=== PATIENT | female | born 1945 | race Caucasian/White ===

== ENCOUNTER 2019-12-01 14:25 | Observation (INO) ==
[2019-12-01] MEDS ORDERED: PIPERACILL/TAZOBAC CONSULT ACTIVE PRN (14:44)
[2019-12-01] MEDS ORDERED: PIPERACILLIN/TAZOBACTAM 4.5 GM/120 ML BAG IV ONE (14:44)
[2019-12-01] MEDS ORDERED: ALBUT/IPRATROP 3MG/0.5MG NEB 3 ML VIAL NEB STA (14:44)
--- NOTE | 2019-12-01 14:52 | Emergency Department Note ---
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 She states she has never had any similar episodes. She has a nonproductive cough and a runny nose. She denies any chest pain. The patient states for the past week, she has had bilateral leg pain. Home Medications Home Medications Medication Instructions Recorded Confirmed Type SCC EagleTouch Verio #120 ea NS 06/12/19 12/01/19 Rx albuterol sulfate 2 puff INHALATION Q4H PRN 12/01/19 12/01/19 History aspirin 81 mg PO QAM 12/01/19 12/01/19 History cholecalciferol (vitamin D3) 5,000 unit PO QAM 12/01/19 12/01/19 History [Vitamin D3] exenatide microspheres [Bydureon] 2 mg SUBCUT WK 12/01/19 12/01/19 History fluticasone propionate 1 spray INTRANASAL DAILY PRN 12/01/19 12/01/19 History furosemide 80 mg PO QAM 12/01/19 12/01/19 History insulin aspart U-100 [Novolog See Rx Instructions .ROUTE .COMPLEX 12/01/19 12/01/19 History U-100 Insulin aspart] insulin detemir U-100 [Levemir 30 unit SUBCUT BID 12/01/19 12/01/19 History U-100 Insulin] isosorbide mononitrate 30 mg PO QAM 12/01/19 12/01/19 History levothyroxine 100 mcg PO QAM 12/01/19 12/01/19 History lisinopril 20 mg PO QAM 12/01/19 12/01/19 History loratadine 10 mg PO QAM 12/01/19 12/01/19 History metoprolol tartrate 25 mg PO QPM 12/01/19 12/01/19 History metoprolol tartrate 50 mg PO QAM 12/01/19 12/01/19 History montelukast 10 mg PO HS 12/01/19 12/01/19 History oxycodone-acetaminophen 1 tab PO QID PRN 12/01/19 12/01/19 History pantoprazole 40 mg PO QAM 12/01/19 12/01/19 History polyethylene glycol 3350 17 g PO DAILY PRN 12/01/19 12/01/19 History potassium chloride 10 meq PO QAM 12/01/19 12/01/19 History pregabalin 200 mg PO TID 12/01/19 12/01/19 History rosuvastatin 20 mg PO HS 12/01/19 12/01/19 History Allergies Allergy/AdvReac Type Severity Reaction Status Date / Time carvedilol AdvReac Mild HEART Verified 12/01/19 19:28 RACING Past Med/Surg History Medical History CAD (coronary artery disease) (Chronic) "cath 2012 - mild, non obstructive disease" Chronic diastolic CHF (congestive heart failure) (Chronic) "echo 2007 - EF 55%, diastolic dysfunction" DM type 2 (diabetes mellitus, type 2) (Chronic) HTN (hypertension) (Chronic) Hypothyroidism (Chronic) MONROE (obstructive sleep apnea) (Chronic) PUD (peptic ulcer disease) (Chronic) Surgical History H/O excision of lamina of cervical vertebra for decompression of spinal cord (Chronic) History of hysterectomy (Chronic) History of tonsillectomy and adenoidectomy (Chronic) Family History (Updated 12/01/19 @ 20:16 by Madalyn Preston PA-C) Other Heart disease Stroke Social History Preferred Language: Slovenian Communication Ability: Effective 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 and A total of 10 systems reviewed and were otherwise negative Physical Exam Vital Signs Vital Signs - 24 hr 12/01/19 14:35 12/01/19 15:00 12/01/19 16:01 Temperature 37.1 C Temperature Source Oral Pulse Rate 79 77 Pulse Rate [Right Finger] 74 78 Pulse Rate from SpO2 Sensor 77 Pulse Rhythm Regular Pulse Rhythm [Right Finger] Regular Pulse Strength Normal Respiratory Rate 18 20 22 Respiratory Effort / Characteristics Non-Labored Spontaneous Spontaneous Non-Labored Respiratory Depth Normal Normal Respiratory Pattern Regular Blood Pressure 133/82 131/59 L Blood Pressure [Left Arm] 131/59 L Blood Pressure Mean 99 90 Blood Pressure Mean [Left Arm] 83 Blood Pressure Position Lying Pulse Oximetry 85 L 96 96 Oxygen Delivery Method Nasal Cannula Nasal Cannula Nasal Cannula Oxygen Flow Rate 3 3 Sepsis Action Taken by Nursing No Action Required 12/01/19 16:32 12/01/19 16:40 12/01/19 17:31 Temperature Temperature Source Pulse Rate 77 79 Pulse Rate [Right Finger] Pulse Rate from SpO2 Sensor Pulse Rhythm Pulse Rhythm [Right Finger] Pulse Strength Respiratory Rate 18 17 Respiratory Effort / Characteristics Respiratory Depth Respiratory Pattern Blood Pressure 147/105 H 158/60 H 128/63 Blood Pressure [Left Arm] Blood Pressure Mean 110 86 106 Blood Pressure Mean [Left Arm] Blood Pressure Position Pulse Oximetry Oxygen Delivery Method Oxygen Flow Rate Sepsis Action Taken by Nursing 12/01/19 17:46 12/01/19 18:01 Temperature Temperature Source Pulse Rate 79 79 Pulse Rate [Right Finger] Pulse Rate from SpO2 Sensor 79 Pulse Rhythm Pulse Rhythm [Right Finger] Pulse Strength Respiratory Rate 16 19 Respiratory Effort / Characteristics Respiratory Depth Respiratory Pattern Blood Pressure 128/63 147/74 H Blood Pressure [Left Arm] Blood Pressure Mean 84 106 Blood Pressure Mean [Left Arm] Blood Pressure Position Pulse Oximetry 96 96 Oxygen Delivery Method Nasal Cannula Oxygen Flow Rate 3 Sepsis Action Taken by Nursing GENERAL: Patient is awake alert in no acute distress patient is resting comfortably and showing no signs of anxiety EYES: The conjunctivae are clear. The pupils are round and reactive. EARS, NOSE, MOUTH AND THROAT: The nose is without any evidence of any deformity. Mucous membranes are moist. Tongue is midline. NECK: The neck is nontender and supple. RESPIRATORY: There were shallow respirations noted to auscultation. Diminished breath sounds are noted at both bases. There were scattered expiratory wheezing both upper lung mccauley. Mild tachypnea was noted with conversational dyspnea. CARDIOVASCULAR: Regular rate and rhythm noted there no murmurs rubs or gallops normal S1 normal S2. GASTROINTESTINAL: The abdomen is soft. Abdomen is nontender. MUSCULOSKELETAL/EXTREMITIES: There is no evidence of gross deformity full range of motion is noted in the hips and shoulders. SKIN: There is no obvious evidence of any rash. NEUROLOGIC: Patient is awake alert and oriented x3. Course Course 1430: Past medical records reviewed. The patient was evaluated in room A9. A complete history and physical exam was performed. 1800: Discussed the patient's case with Sintia Rubio. The patient will be evaluated by Dr. Cedeno, [facility] Hospitalist for further management. Administered Medications Albuterol (Duoneb) 3 ml NEB QIDR MILEY Stop: 12/31/19 19:06 Last Admin: 12/01/19 19:32 Dose: Not Given Documented by: [id number] Methylprednisolone 40 mg/ (Syringe) 0.64 mls @ 1.5 mls/min IV Q8H MILEY Stop: 12/31/19 19:59 Last Admin: 12/01/19 19:59 Dose: 1.5 mls/min Documented by: [id number] Discontinued Medications Albuterol (Duoneb) 3 ml NEB NOW STA Stop: 12/01/19 14:45 Last Admin: 12/01/19 14:59 Dose: 3 ml Documented by: [id number] Piperacillin Sod/Tazobactam Sod (Zosyn) 4.5 gm in 120 mls @ 240 mls/hr IV NOW ONE Stop: 12/01/19 15:13 Last Infusion: 12/01/19 16:34 Dose: 0 mls/hr Documented by: [id number] Admin: 12/01/19 15:54 Dose: 240 mls/hr Documented by: [id number] Sodium Chloride (Nss 1000ml) 1,000 mls @ 999 mls/hr IV .Q1H1M ONE Stop: 12/01/19 17:32 Last Infusion: 12/01/19 18:45 Dose: 0 mls/hr Documented by: [id number] Admin: 12/01/19 17:43 Dose: 999 mls/hr Documented by: [id number] Ioversol (Optiray 320 125ml) 120 ml IV ONCE PRN PRN Reason: Interaction Checking Stop: 12/05/19 16:57 Last Admin: 12/01/19 17:02 Dose: 120 ml Documented by: [id number] Oxycodone/Acetaminophen (Percocet 5mg/325mg) 1 tab PO NOW STA Stop: 12/01/19 17:11 Last Admin: 12/01/19 17:41 Dose: 1 tab Documented by: [id number] Medical Decision Making Differential Diagnosis Differential diagnosis: Etiologies such as infections, reactive airway disease, pneumonia, pneumothorax, COPD, CHF, cardiac ischemia, pulmonary embolism, musculoskeletal, gastrointestinal, as well as others were entertained. Medical Records Attestation: I reviewed the patient's medical records. Home Medications Current Medication List: was personally reviewed by me Laboratory Data Attestation: I reviewed the patient's lab results. Result diagrams: 12/01/19 14:50 12/01/19 14:50 Lab Results 12/01/19 12/01/19 12/01/19 Range/Units 14:50 14:50 14:50 WBC 10.16 (4.8-10.8) K/uL RBC 4.23 (4.2-5.4) M/uL Hgb 12.1 (12.0-16.0) g/dL Hct 37.2 (37-47) % MCV 87.9 (80-100) fL MCH 28.6 (25-34) pg MCHC 32.5 (32-36) g/dL RDW Std Deviation 43.6 (36.4-46.3) fL RDW Coeff of Burak 13.6 (11.5-14.5) % Plt Count 273 (130-400) K/uL MPV 9.8 (7.4-10.4) fL Immature Gran % (Auto) 0.3 % Neut % (Auto) 69.7 % Lymph % (Auto) 15.6 % Howell % (Auto) 11.3 % Eos % (Auto) 2.9 % Baso % (Auto) 0.2 % Immature Gran # (Auto) 0.03 H (0.00-0.02) K/uL Neut # (Auto) 7.09 H (1.4-6.5) K/uL Lymph # (Auto) 1.58 (1.2-3.4) K/uL Howell # (Auto) 1.15 H (0.11-0.59) K/uL Eos # (Auto) 0.29 (0-0.5) K/uL Baso # (Auto) 0.02 (0-0.2) K/uL PT 10.4 (9.0-12.0) Seconds INR 1.0 (0.9-1.1) APTT 25.4 (21.0-31.0) Seconds PTT Ratio 0.9 Sodium 140 (136-145) mmol/L Potassium 4.3 (3.5-5.1) mmol/L Chloride 104 (98-107) mmol/L Carbon Dioxide 33 H (21-32) mmol/L Anion Gap 3.0 (3-11) BUN 43 H (7-18) mg/dl Creatinine 1.33 H (0.6-1.2) mg/dl Est Cr Clr Drug Dosing 34.5 ml/min Est GFR ( Amer) 44.9 Est GFR (Non-Af Amer) 38.7 BUN/Creatinine Ratio 32.5 H (10-20) Glucose 97 (70-99) mg/dl Lactate (0.4-2.0) mmol/L Calcium 9.1 (8.5-10.1) mg/dl Magnesium 2.3 (1.8-2.4) mg/dl Total Bilirubin 0.4 (0.2-1) mg/dl AST 13 L (15-37) U/L ALT 19 (12-78) U/L Alkaline Phosphatase 66 (45-117) U/L Troponin I < 0.015 (0-0.045) ng/ml NT-Pro-B Natriuret Pep 167 (0-1800) pg/ml Total Protein 7.4 (6.4-8.2) gm/dl Albumin 3.5 (3.4-5.0) gm/dl Globulin 3.9 (2.5-4.0) gm/dl Albumin/Globulin Ratio 0.9 (0.9-2) Procalcitonin (0-0.5) ng/ml Urine Color Urine Appearance (Clear) Urine pH (4.5-7.5) Ur Specific [place] (1.000-1.030) Urine Protein (Negative) Urine Glucose (UA) (Negative) Urine Ketones (Negative) Urine Blood (Negative) Urine Nitrite (Negative) Urine Bilirubin (Negative) Urine Urobilinogen (Negative) Ur Leukocyte Esterase (Negative) Influenza Type A (PCR) (Neg) Influenza Type B (PCR) (Neg) 12/01/19 12/01/19 12/01/19 Range/Units 14:50 14:50 14:50 WBC (4.8-10.8) K/uL RBC (4.2-5.4) M/uL Hgb (12.0-16.0) g/dL Hct (37-47) % MCV (80-100) fL MCH (25-34) pg MCHC (32-36) g/dL RDW Std Deviation (36.4-46.3) fL RDW Coeff of Burak (11.5-14.5) % Plt Count (130-400) K/uL MPV (7.4-10.4) fL Immature Gran % (Auto) % Neut % (Auto) % Lymph % (Auto) % Howell % (Auto) % Eos % (Auto) % Baso % (Auto) % Immature Gran # (Auto) (0.00-0.02) K/uL Neut # (Auto) (1.4-6.5) K/uL Lymph # (Auto) (1.2-3.4) K/uL Howell # (Auto) (0.11-0.59) K/uL Eos # (Auto) (0-0.5) K/uL Baso # (Auto) (0-0.2) K/uL PT (9.0-12.0) Seconds INR (0.9-1.1) APTT (21.0-31.0) Seconds PTT Ratio Sodium (136-145) mmol/L Potassium (3.5-5.1) mmol/L Chloride (98-107) mmol/L Carbon Dioxide (21-32) mmol/L Anion Gap (3-11) BUN (7-18) mg/dl Creatinine (0.6-1.2) mg/dl Est Cr Clr Drug Dosing ml/min Est GFR ( Amer) Est GFR (Non-Af Amer) BUN/Creatinine Ratio (10-20) Glucose (70-99) mg/dl Lactate 1.1 (0.4-2.0) mmol/L Calcium (8.5-10.1) mg/dl Magnesium (1.8-2.4) mg/dl Total Bilirubin (0.2-1) mg/dl AST (15-37) U/L ALT (12-78) U/L Alkaline Phosphatase (45-117) U/L Troponin I Cancelled (0-0.045) ng/ml NT-Pro-B Natriuret Pep (0-1800) pg/ml Total Protein (6.4-8.2) gm/dl Albumin (3.4-5.0) gm/dl Globulin (2.5-4.0) gm/dl Albumin/Globulin Ratio (0.9-2) Procalcitonin 0.08 (0-0.5) ng/ml Urine Color Urine Appearance (Clear) Urine pH (4.5-7.5) Ur Specific [place] (1.000-1.030) Urine Protein (Negative) Urine Glucose (UA) (Negative) Urine Ketones (Negative) Urine Blood (Negative) Urine Nitrite (Negative) Urine Bilirubin (Negative) Urine Urobilinogen (Negative) Ur Leukocyte Esterase (Negative) Influenza Type A (PCR) (Neg) Influenza Type B (PCR) (Neg) 12/01/19 12/01/19 12/01/19 Range/Units 14:50 15:00 16:40 WBC (4.8-10.8) K/uL RBC (4.2-5.4) M/uL Hgb (12.0-16.0) g/dL Hct (37-47) % MCV (80-100) fL MCH (25-34) pg MCHC (32-36) g/dL RDW Std Deviation (36.4-46.3) fL RDW Coeff of Burak (11.5-14.5) % Plt Count (130-400) K/uL MPV (7.4-10.4) fL Immature Gran % (Auto) % Neut % (Auto) % Lymph % (Auto) % Howell % (Auto) % Eos % (Auto) % Baso % (Auto) % Immature Gran # (Auto) (0.00-0.02) K/uL Neut # (Auto) (1.4-6.5) K/uL Lymph # (Auto) (1.2-3.4) K/uL Howell # (Auto) (0.11-0.59) K/uL Eos # (Auto) (0-0.5) K/uL Baso # (Auto) (0-0.2) K/uL PT (9.0-12.0) Seconds INR (0.9-1.1) APTT (21.0-31.0) Seconds PTT Ratio Sodium (136-145) mmol/L Potassium (3.5-5.1) mmol/L Chloride (98-107) mmol/L Carbon Dioxide (21-32) mmol/L Anion Gap (3-11) BUN (7-18) mg/dl Creatinine (0.6-1.2) mg/dl Est Cr Clr Drug Dosing ml/min Est GFR ( Amer) Est GFR (Non-Af Amer) BUN/Creatinine Ratio (10-20) Glucose (70-99) mg/dl Lactate (0.4-2.0) mmol/L Calcium (8.5-10.1) mg/dl Magnesium (1.8-2.4) mg/dl Total Bilirubin (0.2-1) mg/dl AST (15-37) U/L ALT (12-78) U/L Alkaline Phosphatase (45-117) U/L Troponin I (0-0.045) ng/ml NT-Pro-B Natriuret Pep Cancelled (0-1800) pg/ml Total Protein (6.4-8.2) gm/dl Albumin (3.4-5.0) gm/dl Globulin (2.5-4.0) gm/dl Albumin/Globulin Ratio (0.9-2) Procalcitonin (0-0.5) ng/ml Urine Color Dark Yellow Urine Appearance Clear (Clear) Urine pH 6.0 (4.5-7.5) Ur Specific [place] 1.012 (1.000-1.030) Urine Protein Negative (Negative) Urine Glucose (UA) Negative (Negative) Urine Ketones Negative (Negative) Urine Blood Negative (Negative) Urine Nitrite Negative (Negative) Urine Bilirubin Negative (Negative) Urine Urobilinogen Negative (Negative) Ur Leukocyte Esterase Negative (Negative) Influenza Type A (PCR) Neg for Influ A (Neg) Influenza Type B (PCR) Neg for Influ B (Neg) Imaging Data Radiologist's Impression: Radiology results as stated below per my review and the radiologist's interpretation: CT ANGIOGRAM OF THE CHEST CLINICAL HISTORY: Dyspnea. COMPARISON STUDY: Chest x-ray dated 12/01/2019. TECHNIQUE: Following the IV administration of 120 cc of Optiray 320, CT angiog ele of the chest was performed from the upper abdomen to the thoracic inlet utilizing the pulmonary embolus protocol. Images are reviewed in the axial, sagittal, and coronal planes. 3-D MIPS images are created and assessed. IV contrast was administered without complication. A dose lowering technique was utilized adhering to the principles of ALARA. The examination is degraded by motion artifact, as well as by streak artifact from the arms which could not be elevated above the chest. CT DOSE: 955.79 mGy.cm FINDINGS: Thyroid: Imaged portions of the thyroid gland are normal in size and attenu ation. Thoracic aorta: There is atherosclerotic calcification of the thoracic aorta, which is normal in caliber and demonstrates standard 3-vessel arch anatomy. No dissection is seen. Pulmonary vasculature: The pulmonary trunk is normal in caliber. There are no filling defects identified in main, lobar, or proximal segmental pulmonary branches to suggest pulmonary embolus. Evaluation of the peripheral branches is degraded by motion artifact, especially in the lower lobes. Heart: The heart is enlarged and without pericardial effusion. The coronary arteries and mitral annulus are densely calcified. Lungs and pleural spaces: Evaluation of the lung parenchyma is degraded by motion artifact. No airspace consolidation or pleural effusion. Scarring/atelectasis is noted at the lung bases. The trachea and central airways are clear. Mediastinum: There is no mediastinal lymphadenopathy. Hailey: Clear. Axillae: There is no axillary lymphadenopathy. Upper abdomen: There is a small to moderate hiatal hernia. Nodular thickening is noted in the adrenal glands. Partially visualized upper abdominal viscera is otherwise grossly unremarkable. Skeletal structures: The skeletal structures are osteopenic. No lytic or blastic bony lesions are seen. Advanced arthritic change is seen in the shoulders. 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 Fusion hardware is noted in the lower cervical spine. There are healed right- sided rib fractures. IMPRESSION: 1. Streak and motion compromised examination. 2. There is no evidence of central pulmonary embolus in the main, lobar, or proximal segmental pulmonary arteries. 3. Cardiomegaly. 4. There is no airspace consolidation or pleural effusion. 5. Hiatal hernia. 6. Additional findings as above. ACT 112: Negative or not required by law. Electronically signed by: Mello Glasgow M.D. 12/01/2019 5:19 PM SINGLE VIEW CHEST CLINICAL HISTORY: Sepsis. FINDINGS: 2 AP, portable, upright chest radiographs are compared to study dated 02/04/2016. The examination is degraded by portable technique, apical lordotic positioning, and patient rotation. The heart is enlarged noting atherosclerotic calcification of the thoracic aorta. There is prominence of the pulmonary vascular. Scarring/atelectasis is noted at the lung bases. No airspace consolidation or large pleural effusion is identified. No pneumothorax is seen. The skeletal structures are osteopenic. There are numerous healed right-sided rib fractures. Fusion hardware is noted in the lower cervical spine. Advanced degenerative change is seen in the shoulders and thoracic spine. IMPRESSION: 1. Cardiomegaly with prominence of the pulmonary vasculature. Correlate clinically for evidence of mild congestive failure. 2. No airspace consolidation or large pleural effusion is seen. ACT 112: Negative or not required by law. Electronically signed by: Mello Glasgow M.D. 12/01/2019 4:49 PM ECG Data Attestation: I personally reviewed and interpreted this ECG as follows: Indication: + SOB/dyspnea Rate (beats per minute): 79 Rhythm: + normal sinus ECG ST segments: no ST depression and no ST elevation ECG Findings: + Poor R wave progression; no PACs and no PVCs Comparison ECG Date: from (02/04/16) Change: no significant change Blood Pressure Blood Pressure Findings: Elevated blood pressure Blood Pressure Disposition: further management by hospitalist [facility] Narrative The patient is a 74-year-old female who presented to the emergency department by ambulance for an evaluation of shortness of breath. The patient states that she was seen at her primary care physician's office and was sent to the emergency department for further evaluation. She reportedly had a chest x-ray which showed bilateral pneumonia. The patient's chest x-ray in the emergency department was not impressive so a CT of the chest was obtained. Given the patient's degree of hypoxia. She was placed on supplemental oxygen treated with IV fluids DuoNeb therapy and IV antibiotics. On subsequent reevaluation she was resting comfortably. I discussed the patient's laboratory and radiographic studies with her. Given the degree of hypoxia I was concerned she may require inpatient management. I discussed her case with the on-call [facility] hospitalist. They have agreed to evaluate the patient in the emergency dep artment for further management and disposition. Impression & Plan Bronchitis, Hypoxia, ROQUE (dyspnea on exertion) Discharge Plan Visit Data *Final* Discharge Date/Time: 12/01/19 18:38 Chief Complaint: Respiratory Problems ED Provider: Jori Varela Discharge Problem: Bronchitis, Hypoxia, ROQUE (dyspnea on exertion) Patient Disposition: Admitted As Inpatient Discharge Instructions Interventions: ED Discharge Assessment Last Done: 12/01/19 18:38 The scribe's documentation has been prepared under my direction and personally reviewed by me in its entirety. I confirm that the note above accurately refl ects all work, treatment, procedures, and medical decision making performed by me.
[2019-12-01 15:08] LABS: Basophils # (auto) 0.02 K/uL (0-0.2); Basophils % (auto) 0.2 %; Eosinophils # (auto) 0.29 K/uL (0-0.5); Eosinophils % (auto) 2.9 %; Hematocrit (blood only) 37.2 % (37-47); Hemoglobin 12.1 g/dL (12.0-16.0); Immature Granulocytes # (auto) 0.03 K/uL (0.00-0.02); Immature Granulocytes % (auto) 0.3 %; Lymphocytes # (auto) 1.58 K/uL (1.2-3.4); Lymphocytes % (auto) 15.6 %; Mean Corpuscular Hemoglobin 28.6 pg (25-34); Mean Corpuscular Hgb Conc 32.5 g/dL (32-36); Mean Corpuscular Volume 87.9 fL (80-100); Mean Platelet Volume 9.8 fL (7.4-10.4); Monocytes # (auto) 1.15 K/uL (0.11-0.59); Monocytes % (auto) 11.3 %; Neutrophils # (auto) 7.09 K/uL (1.4-6.5); Neutrophils % (auto) 69.7 %; Platelet Count 273 K/uL (130-400); RDW Coefficient of Variation 13.6 % (11.5-14.5); RDW Standard Deviation 43.6 fL (36.4-46.3); Red Blood Count 4.23 M/uL (4.2-5.4); White Blood Count 10.16 K/uL (4.8-10.8)
[2019-12-01 15:25] LABS: Alanine Aminotransferase 19 U/L (12-78); Albumin Level 3.5 gm/dl (3.4-5.0); Aspartate Aminotransferase 13 U/L (15-37); BUN Creatinine Ratio 32.5 (10-20); Blood Urea Nitrogen 43 mg/dl (7-18); Calcium 9.1 mg/dl (8.5-10.1); Carbon Dioxide 33 mmol/L (21-32); Chloride 104 mmol/L (98-107); Creatinine Clr Calc Pharmacy 34.5 ml/min; Est GFR (African American) 44.9; Est GFR (Non-African American) 38.7; Glucose 97 mg/dl (70-99); Magnesium 2.3 mg/dl (1.8-2.4); Potassium 4.3 mmol/L (3.5-5.1); Sodium 140 mmol/L (136-145)
[2019-12-01 15:26] LABS: Partial Thromboplastin Ratio 0.9; Partial Thromboplastin Time 25.4 Seconds (21.0-31.0); Prothrombin Time 10.4 Seconds (9.0-12.0)
[2019-12-01 15:28] LABS: Albumin Globulin Ratio 0.9 (0.9-2); Alkaline Phosphatase 66 U/L (45-117); Bilirubin,Total 0.4 mg/dl (0.2-1); Globulin 3.9 gm/dl (2.5-4.0); Total Protein 7.4 gm/dl (6.4-8.2)
[2019-12-01 15:41] LABS: Troponin I < 0.015 ng/ml (0-0.045)
--- NOTE | 2019-12-01 15:52 | Electrocardiogram Report ---
Test Reason : Blood Pressure : / mmHG Vent. Rate : 079 BPM Atrial Rate : 079 BPM P-R Int : 198 ms QRS Dur : 110 ms QT Int : 382 ms P-R-T Axes : 052 -56 053 degrees QTc Int : 438 ms Normal sinus rhythm Left anterior fascicular block Septal infarct (cited on or before 04-FEB-2016) Abnormal ECG When compared with ECG of 04-FEB-2016 09:11, Nonspecific T wave abnormality no longer evident in Inferior leads Confirmed by Jori Arzola ([id number]) on 12/01/2019 3:51:43 PM Referred By: Confirmed By:Jori Arzola
[2019-12-01 16:05] LABS: Influenza A virus by PCR Neg for Influ A (Neg); Influenza B virus by PCR Neg for Influ B (Neg)
[2019-12-01] MEDS ORDERED: SODIUM CHLORIDE 0.9% 1000ML 1,000 ML IV ONE (16:32)
--- NOTE | 2019-12-01 16:50 | XRay Report ---
SINGLE VIEW CHEST CLINICAL HISTORY: Sepsis. FINDINGS: 2 AP, portable, upright chest radiographs are compared to study dated 02/04/2016. The examina tion is degraded by portable technique, apical lordotic positioning, and patient rotation. The heart is enlarged noting atherosclerotic calcification of the thoracic aorta. There is prominence of the pu lmonary vascular. Scarring/atelectasis is noted at the lung bases. No airspace consolidation or large pleural effusion is identified. No pneumothorax is seen. The skeletal structures are osteopenic. The re are numerous healed right-sided rib fractures. Fusion hardware is noted in the lower cervical spin e. Advanced degenerative change is seen in the shoulders and thoracic spine. IMPRESSION: 1. Cardiomegaly with prominence of the pulmonary vasculature. Correlate clinically for evidence of mi ld congestive failure. 2. No airspace consolidation or large pleural effusion is seen. ACT 112: Negative or not required by law. Electronically signed by: Mello Glasgow M.D. 12/01/2019 4:49 PM
[2019-12-01] MEDS ORDERED: OPTIRAY 320 125ml IV PRN (16:58)
[2019-12-01] MEDS ORDERED: OXYCODONE/ACETAMINOPHEN 5mg/325mg TAB PO STA (17:10)
--- NOTE | 2019-12-01 17:21 | CT Scan Report ---
CT ANGIOGRAM OF THE CHEST CLINICAL HISTORY: Dyspnea. COMPARISON STUDY: Chest x-ray dated 12/01/2019. TECHNIQUE: Following the IV administration of 120 cc of Optiray 320, CT angiogram of the chest was pe rformed from the upper abdomen to the thoracic inlet utilizing the pulmonary embolus protocol. Images are reviewed in the axial, sagittal, and coronal planes. 3-D MIPS images are created and assessed. I V contrast was administered without complication. A dose lowering technique was utilized adhering to the principles of ALARA. The examination is degraded by motion artifact, as well as by streak artifa ct from the arms which could not be elevated above the chest. CT DOSE: 955.79 mGy.cm FINDINGS: Thyroid: Imaged portions of the thyroid gland are normal in size and attenuation. Thoracic aorta: There is atherosclerotic calcification of the thoracic aorta, which is normal in jacki amara and demonstrates standard 3-vessel arch anatomy. No dissection is seen. Pulmonary vasculature: The pulmonary trunk is normal in caliber. There are no filling defects identif ied in main, lobar, or proximal segmental pulmonary branches to suggest pulmonary embolus. Evaluation of the peripheral branches is degraded by motion artifact, especially in the lower lobes. Heart: The heart is enlarged and without pericardial effusion. The coronary arteries and mitral annul us are densely calcified. Lungs and pleural spaces: Evaluation of the lung parenchyma is degraded by motion artifact. No airspa ce consolidation or pleural effusion. Scarring/atelectasis is noted at the lung bases. The trachea an d central airways are clear. Mediastinum: There is no mediastinal lymphadenopathy. Hailey: Clear. Axillae: There is no axillary lymphadenopathy. Upper abdomen: There is a small to moderate hiatal hernia. Nodular thickening is noted in the adrenal glands. Partially visualized upper abdominal viscera is otherwise grossly unremarkable. Skeletal structures: The skeletal structures are osteopenic. No lytic or blastic bony lesions are see n. Advanced arthritic change is seen in the shoulders. Degenerative change, hyperkyphosis, and DISH a re noted in the thoracic spine. Fusion hardware is noted in the lower cervical spine. There are heale d right-sided rib fractures. IMPRESSION: 1. Streak and motion compromised examination. 2. There is no evidence of central pulmonary embolus in the main, lobar, or proximal segmental pulmon angie arteries. 3. Cardiomegaly. 4. There is no airspace consolidation or pleural effusion. 5. Hiatal hernia. 6. Additional findings as above. ACT 112: Negative or not required by law. Electronically signed by: Mello Glasgow M.D. 12/01/2019 5:19 PM
[2019-12-01 18:03] LABS: Appearance Urine Clear (Clear); Bilirubin Urine Negative (Negative); Blood Urine Negative (Negative); Color Urine Dark Yellow; Glucose Urine UA Negative (Negative); Ketones Urine Negative (Negative); Leukocyte Esterase Urine Negative (Negative); Nitrite Urine Negative (Negative); Protein Urine Negative (Negative); Specific Gravity Urine 1.012 (1.000-1.030); Urobilinogen Urine Negative (Negative)
[2019-12-01] MEDS ORDERED: INFLUENZA ADMINISTRATION CHARGE ONE (18:32)
[2019-12-01] MEDS ORDERED: INFLUENZA VACCINE HIGH DOSE 65+ 0.5 ML SYR IM ONE (18:32)
[2019-12-01 18:37] LABS: NT Pro B Type Natriuretic Pept 167 pg/ml (0-1800)
--- NOTE | 2019-12-01 18:46 | History & Physical Report ---
Date of Service December 01, 2019 Assessment & Plan (1) Acute respiratory failure with hypoxia: (2) Aspiration pneumonitis: This is a 74-year-old female with PMH of type 2 diabetes on insulin, chronic diastolic heart failure, hypothyroidism, CAD, depression, MONROE not on CPAP and other medical problems listed below who presents with progressive dyspnea on exertion x1 week. -Wheezing, nasal congestion, nonproductive cough and dyspnea on exertion x 1 week -Initially hypoxic at 85% on room air. Now saturating 96% on 3 L nasal cannula -Afebrile, no leukocytosis, flu PCR negative, lactate and procalcitonin within normal limits -Initial concern about pneumonia on CXR done in clinic, but chest CTA without evidence of airspace consolidation, pleural effusion or evidence of PE -Concern for aspiration due to history of dysphasia.Underwent EGD with dilation in June 2019 with minimal improvement, per GI note -Was seen by speech in August 2019 for swallow study that did not show any signs of aspiration but did show some dysmotility. Slippery diet with thin liquids recommended -Continue empiric Zosyn and added doxycycline, duoNebs QIDR, IV Solu-Medrol. Blood cultures pending -Aspiration precautions, speech consult (3) Chronic diastolic CHF (congestive heart failure): Appears compensated on exam and chest CTA -Continue home dose lasix, lopressor (4) HTN (hypertension): Continue lisinopril, lopressor (5) CAD (coronary artery disease): No chest pain or ischemic changes -Continue aspirin, statin (6) DM type 2 (diabetes mellitus, type 2): A1c of 8.5 in Aug 2019. Repeat ordered -Hold home agents -Basal/bolus insulin per protocol while in-patient -BSG AC HS (7) Chronic pain: History of degenerative disc disease in neck and back -Continue home dose oxycodone (8) MONROE (obstructive sleep apnea): Not on CPAP DVT Ppx: SQ heparin Code status: FULL PCP: Kya Dispo: Admitted to [facility]. Plan to return home once medically stable. Patient seen in collaboration with Dr. Cedeno. Please see addendum. History of Present Illness Chief Complaint: Dyspnea on exertion, cough Primary Care Provider: Jazzmine Boland, DO This is a 74-year-old female with PMH of type 2 diabetes on insulin, chronic diastolic heart failure, hypothyroidism, CAD, depression, MONROE not on CPAP and other medical problems listed below who presents with progressive dyspnea on exertion x1 week. Patient states that over the past week she has developed wheezing, nasal congestion, nonproductive cough and shortness of breath that is been progressively worse over the past 2 days. Is unable to ambulate even around her house without becoming short of breath. Has been around her grandson who is sick. Denies fever, chills, lightheadedness, visual changes, chest pain, palpitations, hemoptysis, nausea, vomiting, abdominal pain, dysuria, diarrhea or constipation. Has history of dysphasia issues and admits to sometimes choking on food. Underwent EGD with dilation in June 2019 with minimal improvement, per GI note. Was seen by speech in August 2019 for swallow study that did not show any signs of aspiration but did show some dysmotility. Slippery diet with thin liquids recommended. Allergies Allergy/AdvReac Type Severity Reaction Status Date / Time carvedilol AdvReac Mild HEART Verified 12/01/19 19:28 RACING Home Medications Home Medications Medication Instructions Recorded Confirmed Type FiiilingTouch Verio #120 ea NS 06/12/19 12/01/19 Rx albuterol sulfate 2 puff INHALATION Q4H PRN 12/01/19 12/01/19 History aspirin 81 mg PO QAM 12/01/19 12/01/19 History cholecalciferol (vitamin D3) 5,000 unit PO QAM 12/01/19 12/01/19 History [Vitamin D3] exenatide microspheres [Bydureon] 2 mg SUBCUT WK 12/01/19 12/01/19 History fluticasone propionate 1 spray INTRANASAL DAILY PRN 12/01/19 12/01/19 History furosemide 80 mg PO QAM 12/01/19 12/01/19 History insulin aspart U-100 [Novolog See Rx Instructions .ROUTE .COMPLEX 12/01/19 12/01/19 History U-100 Insulin aspart] insulin detemir U-100 [Levemir 30 unit SUBCUT BID 12/01/19 12/01/19 History U-100 Insulin] isosorbide mononitrate 30 mg PO QAM 12/01/19 12/01/19 History levothyroxine 100 mcg PO QAM 12/01/19 12/01/19 History lisinopril 20 mg PO QAM 12/01/19 12/01/19 History loratadine 10 mg PO QAM 12/01/19 12/01/19 History metoprolol tartrate 25 mg PO QPM 12/01/19 12/01/19 History metoprolol tartrate 50 mg PO QAM 12/01/19 12/01/19 History montelukast 10 mg PO HS 12/01/19 12/01/19 History oxycodone-acetaminophen 1 tab PO QID PRN 12/01/19 12/01/19 History pantoprazole 40 mg PO QAM 12/01/19 12/01/19 History polyethylene glycol 3350 17 g PO DAILY PRN 12/01/19 12/01/19 History potassium chloride 10 meq PO QAM 12/01/19 12/01/19 History pregabalin 200 mg PO TID 12/01/19 12/01/19 History rosuvastatin 20 mg PO HS 12/01/19 12/01/19 History Past Med/Surg History Medical History (Updated 12/01/19 @ 20:32 by Madalyn Preston PA-C) CAD (coronary artery disease) (Chronic) "cath 2012 - mild, non obstructive disease" Chronic diastolic CHF (congestive heart failure) (Chronic) "echo 2007 - EF 55%, diastolic dysfunction" Chronic pain DM type 2 (diabetes mellitus, type 2) (Chronic) HTN (hypertension) (Chronic) Hypothyroidism (Chronic) MONROE (obstructive sleep apnea) (Chronic) PUD (peptic ulcer disease) (Chronic) Surgical History H/O excision of lamina of cervical vertebra for decompression of spinal cord (Chronic) History of hysterectomy (Chronic) History of tonsillectomy and adenoidectomy (Chronic) Family History (Updated 12/01/19 @ 20:16 by Madalyn Preston PA-C) Other Heart disease Stroke Social History Preferred Language: Romanian Communication Ability: Effective In Class Special Education Teacher Required: No Beliefs That Will Affect Care: None Current Living Situation: Alone current occupational status: retired Other Information That Helps Us Care for You: No Feels Safe at Home: Yes Safety Concerns: Feels Safe At This Time Smoking Status: Never smoker Do You Dip or Chew Tobacco: No ; Second Hand Exposure: No ; Tobacco Cessation Education Requested by Patient: No Hx Alcohol Use: Yes Hx Substance Use: No Review of Systems Review of Systems: At least ten systems reviewed and negative except as noted in the HPI. Physical Exam Physical Exam: General Appearance: WD/WN, vitals as above, NAD, lying in bed, pleasant, conversing easily Head: normocephalic, atraumatic Eyes: normal inspection, PERRL, conjunctivae normal, anicteric sclerae ENT: external ear and nose normal, oropharynx normal Neck: trachea midline, no thyromegaly normal visual inspection Respiratory: scattered wheezing and rhonchi with mild bibasilar rales. Increased insp/exp effort, no accessory muscle use Cardiovascular: regular rate, rhythm, no murmur, normal peripheral pulses, no BLE edema. Vessels: no JVD or carotid bruit Chest: normal inspection of chest Abdomen/GI: normal bowel sounds, soft, nontender, no hepatosplenomegaly Extremities/Musculoskeletal: no cyanosis or clubbing, extremities motor strength 5/5 Neurologic: PERRL, EOMI, accommodation nl, no face palsy, no dysarthria, CN's II-XI intact bilaterally and moves all extremities Psychiatric: A+Ox3, euthymic affect Skin: no rashes, normal color, warm/dry Results & Data Vital Signs (Past 12 Hours) Vital Signs Temp Pulse Pulse Resp BP BP Pulse Ox 12/01/19 18:38 81 20 165/72 H 95 12/01/19 18:01 79 19 147/74 H 96 12/01/19 17:46 79 16 128/63 96 12/01/19 17:31 79 17 128/63 12/01/19 16:40 158/60 H 12/01/19 16:32 77 18 147/105 H 12/01/19 16:01 77 78 22 131/59 L 131/59 L 96 12/01/19 15:00 74 20 96 12/01/19 14:35 37.1 C 79 18 133/82 85 L Laboratory Results Short CBC 12/01/19 Range/Units 14:50 WBC 10.16 (4.8-10.8) K/uL Hgb 12.1 (12.0-16.0) g/dL Hct 37.2 (37-47) % Plt Count 273 (130-400) K/uL BMP 12/01/19 14:50 Sodium 140 Potassium 4.3 Chloride 104 Carbon Dioxide 33 H BUN 43 H Creatinine 1.33 H Glucose 97 Calcium 9.1 Cardiac Enzymes 12/01/19 12/01/19 Range/Units 14:50 14:50 Troponin I < 0.015 Cancelled (0-0.045) ng/ml Liver Function 12/01/19 Range/Units 14:50 Total Bilirubin 0.4 (0.2-1) mg/dl AST 13 L (15-37) U/L ALT 19 (12-78) U/L Alkaline Phosphatase 66 (45-117) U/L Albumin 3.5 (3.4-5.0) gm/dl Urine 12/01/19 Range/Units 16:40 Urine Color Dark Yellow Urine Appearance Clear (Clear) Urine pH 6.0 (4.5-7.5) Ur Specific [place] 1.012 (1.000-1.030) Urine Protein Negative (Negative) Urine Glucose (UA) Negative (Negative) Diagnostic Findings CXR: IMPRESSION: 1. Cardiomegaly with prominence of the pulmonary vasculature. Correlate clinically for evidence of mild congestive failure. 2. No airspace consolidation or large pleural effusion is seen. Chest CTA: IMPRESSION: 1. Streak and motion compromised examination. 2. There is no evidence of central pulmonary embolus in the main, lobar, or proximal segmental pulmonary arteries. 3. Cardiomegaly. 4. There is no airspace consolidation or pleural effusion. 5. Hiatal hernia. 6. Additional findings as above. Code Status & VTE Plan VTE Prophylaxis Plan VTE Prophylaxis will be ordered: Yes Supervising Physician Co-Signing Physician Notes Attending Addendum: The patient was seen and examined in ER in presence of the Family members. She is a 74 years old female with past medical history of type 2 diabetes on insulin, chronic diastolic heart failure, hypothyroidism, depression, MONROE but not on any CPAP was brought to the ER yesterday with them increasing shortness of breath for about 1 week. She denies any chest pain and/or palpitation associated with it No history of fever, chills or cough with phlegm On examination She is obese lying in bed with moderate distress secondary to shortness of breath Hemodynamically stable Chest-decreased breath sounds all over with minimal wheezing and crackles bibasilar areas Heart-S1-S2, regular Abdomen-benign Extremities-trace edema bilaterally Admission labs, EKG and imaging studies reviewed Likely has pneumonia may be secondary to aspiration and/or community-acquired Doubt any acute CHF We will continue Lasix and add antibiotics, nebulized bronchodilators and small dose of steroid Agree with assessment plan as outlined above by BESSY Moore Dr
[2019-12-01] MEDS ORDERED: GLUCOSE 40% GEL 15 GM TUBE PO PRN (19:07)
[2019-12-01] MEDS ORDERED: ALBUTEROL HFA 8 GM INHALER INH PRN (19:07)
[2019-12-01] MEDS ORDERED: CARBOHYDRATES FOR HYPOGLYCEMIA PO PRN (19:07)
[2019-12-01] MEDS ORDERED: GLUCAGON FOR INJ 1 MG VIAL SQ PRN (19:07)
[2019-12-01] MEDS ORDERED: POLYETHYLENE (MIRALAX) 17 GM PACK PO PRN (19:07)
[2019-12-01] MEDS ORDERED: ACETAMINOPHEN 325 MG TAB PO PRN (19:07)
[2019-12-01] MEDS ORDERED: DEXTROSE 50% 50 ML SYRINGE IV PRN (19:07)
[2019-12-01] MEDS ORDERED: GLUCOSE 10 TABS/TUBE PO PRN (19:07)
[2019-12-01] MEDS: ALBUT/IPRATROP 3MG/0.5MG NEB 3 ML VIAL NEB SCH ×2 (19:32→20:34)
[2019-12-01] MEDS: methylPREDNISolone 40 MG in SYRINGE 0 ML IV SCH (19:59)
[2019-12-01] MEDS: DOXYCYCLINE HYCLATE 100 MG in DEXTROSE 5% 100 ML IV SCH (20:27)
[2019-12-01] MEDS: INSULIN GLARGINE SOLOSTAR 100 UNITS/ML 3 ML PEN SC SCH (20:28)
[2019-12-01] MEDS: INSULIN ASPART 100 UNITS/ML 3 ML PEN SC SCH (20:28)
[2019-12-01] MEDS: HEPARIN SOD 5,000 UNIT/0.5 ML VIAL SQ SCH (20:29)
[2019-12-01] MEDS: PREGABALIN 100 MG CAP PO SCH (21:20)
[2019-12-01] MEDS: MONTELUKAST SODIUM 10 MG TABLET PO SCH (21:21)
[2019-12-01] MEDS: METOPROLOL TARTRATE 25 MG TAB PO SCH (21:22)
[2019-12-01] MEDS: ROSUVASTATIN CALCIUM 20 MG TAB PO SCH (21:22)
[2019-12-01] MEDS: OXYCODONE/ACETAMINOPHEN 10-325 TAB PO PRN (21:25)
[2019-12-01] MEDS: PIPERACILLIN/TAZOBACTAM 3.375 GM in DEXTROSE 5% 100 ML IV SCH (22:46)
[2019-12-02] MEDS: methylPREDNISolone 40 MG in SYRINGE 0 ML IV SCH ×2 (03:47→11:52)
[2019-12-02] MEDS: LEVOTHYROXINE SODIUM 100 MCG TABLET PO SCH (05:49)
[2019-12-02] MEDS: HEPARIN SOD 5,000 UNIT/0.5 ML VIAL SQ SCH ×3 (05:49→20:20)
[2019-12-02] MEDS: PIPERACILLIN/TAZOBACTAM 3.375 GM in DEXTROSE 5% 100 ML IV SCH (05:49)
[2019-12-02 05:58] LABS: Hematocrit (blood only) 37.1 % (37-47); Hemoglobin 12.2 g/dL (12.0-16.0); Mean Corpuscular Hemoglobin 28.7 pg (25-34); Mean Corpuscular Hgb Conc 32.9 g/dL (32-36); Mean Corpuscular Volume 87.3 fL (80-100); Mean Platelet Volume 9.7 fL (7.4-10.4); Platelet Count 249 K/uL (130-400); RDW Coefficient of Variation 13.5 % (11.5-14.5); RDW Standard Deviation 43.1 fL (36.4-46.3); Red Blood Count 4.25 M/uL (4.2-5.4)
[2019-12-02 06:31] LABS: Estimated Average Glucose 174 mg/dl; Hemoglobin A1C 7.7 % (4.5-5.6)
[2019-12-02 06:34] LABS: BUN Creatinine Ratio 26.3 (10-20); Calcium 8.9 mg/dl (8.5-10.1); Est GFR (African American) 55.9; Est GFR (Non-African American) 48.2; Potassium 4.4 mmol/L (3.5-5.1)
[2019-12-02] MEDS: ALBUT/IPRATROP 3MG/0.5MG NEB 3 ML VIAL NEB SCH ×4 (06:50→19:24)
[2019-12-02] MEDS: INSULIN ASPART 100 UNITS/ML 3 ML PEN SC SCH ×4 (09:15→20:44)
[2019-12-02] MEDS: LORATADINE 10 MG TAB PO SCH (09:17)
[2019-12-02] MEDS: ISOSORBIDE MONO EXTENDED REL 30 MG TABCR PO SCH (09:17)
[2019-12-02] MEDS: ASPIRIN 81 MG ECTAB PO SCH (09:17)
[2019-12-02] MEDS: POTASSIUM CHLORIDE 10 MEQ TABCR PO SCH (09:18)
[2019-12-02] MEDS: INSULIN GLARGINE SOLOSTAR 100 UNITS/ML 3 ML PEN SC SCH ×2 (09:19→20:44)
[2019-12-02] MEDS: FUROSEMIDE 80 MG TAB PO SCH (09:21)
[2019-12-02] MEDS: METOPROLOL TARTRATE 50 MG TAB PO SCH (09:21)
[2019-12-02] MEDS: PREGABALIN 100 MG CAP PO SCH ×3 (09:21→20:45)
[2019-12-02] MEDS: PANTOprazole 40 MG TAB PO SCH (09:22)
[2019-12-02] MEDS: DOXYCYCLINE HYCLATE 100 MG in DEXTROSE 5% 100 ML IV SCH ×2 (09:22→20:49)
[2019-12-02] MEDS: lisinopriL 20 MG TAB PO SCH (09:24)
[2019-12-02] MEDS: CHOLECALCIFEROL 1,000 UNITS 25 MCG TAB PO SCH (09:24)
[2019-12-02] MEDS: OXYCODONE/ACETAMINOPHEN 10-325 TAB PO PRN ×3 (09:45→20:41)
[2019-12-02] MEDS ORDERED: PHARMACY GLYCEMIC MGMT CONSULT PRN (12:34)
[2019-12-02] MEDS ORDERED: INSULIN HUMAN REGULAR PER UNIT 5 UNITS in SYRINGE 4.95 ML IV ONE (12:45)
[2019-12-02] MEDS ORDERED: INSULIN GLARGINE SOLOSTAR 100 UNITS/ML 3 ML PEN SC ONE (13:00)
--- NOTE | 2019-12-02 14:10 | Pharmacy Report ---
Glycemic Control Consultation - Date of Service December 02, 2019 - Scope Scope: Glycemic Pharmacist consulted for glycemic control and to write orders per [facility] inpatient glycemic control protocol - Objective Weight: 89 kg Accuchecks BSG (last 24hrs): 12/01/19 12/01/19 12/02/19 14:50 19:44 05:38 Glucose 97 226 H POC Glucose 113 H 12/02/19 12/02/19 12/02/19 07:26 07:28 11:32 Glucose POC Glucose 221 H 263 H 364 H* 12/02/19 12/02/19 11:32 11:38 Glucose POC Glucose 385 H* 369 H* Laboratory Data (last 24hrs): 12/01/19 12/02/19 14:50 05:38 Potassium 4.3 4.4 Carbon Dioxide 33 H 29 Anion Gap 3.0 5.0 Creatinine 1.33 H 1.11 Est Cr Clr Drug Dosing 34.5 42.0 HbA1c: Hemoglobin A1c 7.7 % (4.5-5.6) H 12/02/19 05:38 - Recent Pertinent Medications Outpatient Anti-diabetic Regimen: * Levemir 30 units SC BID * Novolog units SC TIDM * Exenatide * A1c = 7.7 % on 12/02/19 Risk Factors for Insulin Resistance: * Steroids: methylprednisolone 40 mg IV q8h * Infection: PNA on doxycycline * Diet: T2DM - Assessment & Plan Assessment & Plan: ASSESSMENT: * 74 yo F with T2DM on >100 units/day insulin as an outpatient with good HbA1c * BSG's elevated as inpatient - likely steroid induced * Will increase Lantus 2nd AM fasting elevation * Will significantly tighten Novolog PLAN FOR INPATIENT GLYCEMIC CONTROL: * Regular insulin 5 unit IVP x1 * Basal insulin * Lantus 30+30 units this AM then 0-30 units tonight based on BSG * Bolus insulin * NovoLog per scale ACHS or Q6hrs while NPO * Goal Range: Low 120 mg/dL - High 160 mg/dL * Correction Factor: 15 mg/dL/unit * Nutritional / Prandial insulin per carb ratio of 1 unit per 4 grams CHO consumed * Please note that the plan above was derived based on current level of insulin resistance and hospital stress. These recommendations are appropriate for inpatient admission only. Plan of care upon discharge will need to be reassessed to avoid potential outpatient hypo/hyperglycemia. Thank you.
--- NOTE | 2019-12-02 16:30 | Hospitalist Progress Note ---
Date of Service December 02, 2019 Assessment & Plan (1) Acute respiratory failure with hypoxia: This is a 74-year-old female with PMH of type 2 diabetes on insulin, chronic diastolic heart failure, hypothyroidism, CAD, depression, MONROE not on CPAP and other medical problems listed below who presents with progressive dyspnea on exertion x1 week. -Wheezing, nasal congestion, nonproductive cough and dyspnea on exertion x 1 week -Initially hypoxic at 85% on room air. required supplemental 02 respiratory symptom has resolved , no hypoxia , in room air , no audible wheeze , no ROQUE possible cause of respiratory failure : viral bronchitis with COPD exacerbation ? ( no formal dx of COPD ) pt had diffuse wheezing , symptom improved with IV steroids /neb tx -remains Afebrile, no leukocytosis, flu PCR negative, lactate and procalcitonin within normal limits chest CTA without evidence of airspace consolidation, pleural effusion or evidence of PE all antibiotics -Zosyn /Doxycycline D/vishnu pt is a non smoker /but had second hand smoking exposure for long time will need formal lung function test as out pt to confirm dx of obstructive lung disease No evidence of aspiration recent VFSS study in 09/2019 was negative for aspiration , mild esophageal dysmotility pt has been following guideline for slippery diet no s/s of aspiration during meals remains in room air , no infiltrate noted in CT chest appreciate input from Speech therapy pt finished 100% of her meal w/o any s/s of dysphagia does not need formal swallow eval (2) Chronic diastolic CHF (congestive heart failure): chronic diastolic CHF with preserved LV function ( HFpEF) vol status stable no evidence of pulm congestion in chest xray /CT chest cont home dose of Po Lasix and lisinopril (3) HTN (hypertension): Continue lisinopril, lopressor/Lasix (4) CAD (coronary artery disease): No chest pain or ischemic changes -Continue aspirin, statin (5) DM type 2 (diabetes mellitus, type 2): BSG markedly elevated due to IV Solu medrol on insulin [facility] pharmacy consulted for glycemic management (6) Chronic pain: History of degenerative disc disease in neck and back -Continue home dose oxycodone-symptom well controlled (7) MONROE (obstructive sleep apnea): Not on CPAP DVT Ppx: SQ heparin Code status: FULL FAMILY PHYSICIAN :Dr Jazzmine Boland at [facility] Dispo: expected to be discharged home with medically stable update given to family members present at bedside Subjective pt reports of improvement of respiratory symptoms minimum SOB in room air has mild non productive cough no fever or chills Review of Systems Review of Systems: At least ten systems reviewed and negative except as noted in the HPI. Respiratory: as per Subjective / HPI, + cough and + sputum production; no dyspnea, no dyspnea on exertion, no pain with cough and no wheezing Physical Exam Constitutional: WD/WN, vitals as above no acute distress Eyes: PERRL, conjunctivae normal, anicteric sclerae ENMT: external ear and nose normal, oropharynx normal Neck: trachea midline, no thyromegaly Respiratory: normal respiratory effort and + cough; no respiratory distress Auscultation: + diminished lung sounds and + wheezes Cardiovascular: RRR, no murmur, no edema Gastrointestinal (Abdomen): normal bowel sounds, soft, nontender, no hepatosplenomegaly Musculoskeletal: no cyanosis or clubbing, extremities motor strength 5/5 Skin: no rashes, warm and dry Neurologic: PERRL, EOMI, accommodation nl, no face palsy, no dysarthria Psychiatric: A+Ox3, euthymic affect Results & Data ([facility]) Vital Signs (Past 12 Hours) Vital Signs Temp Pulse Pulse Pulse Resp BP Pulse Ox 12/02/19 15:41 36.6 C 79 21 118/55 L 91 12/02/19 15:28 83 18 93 12/02/19 14:55 74 12/02/19 11:34 36.2 C L 74 18 106/65 90 12/02/19 11:11 70 14 92 12/02/19 07:49 36.7 C 74 14 120/71 95 12/02/19 06:50 71 14 93
[2019-12-02] MEDS: ROSUVASTATIN CALCIUM 20 MG TAB PO SCH (20:19)
[2019-12-02] MEDS: MONTELUKAST SODIUM 10 MG TABLET PO SCH (20:21)
[2019-12-02] MEDS: METOPROLOL TARTRATE 25 MG TAB PO SCH (20:22)
[2019-12-02] MEDS ORDERED: INSULIN HUMAN REGULAR PER UNIT 4 UNITS in SYRINGE 3.96 ML IV ONE (20:45)
[2019-12-02] MEDS ORDERED: methylPREDNISolone 40 MG in SYRINGE 0 ML IV SCH (21:00)
[2019-12-02] MEDS ORDERED: ALBUT/IPRATROP 3MG/0.5MG NEB 3 ML VIAL NEB PRN (21:05)
[2019-12-02] MEDS ORDERED: POLYETHYLENE (MIRALAX) 17 GM PACK PO PRN (22:32)
[2019-12-03] MEDS: INSULIN ASPART 100 UNITS/ML 3 ML PEN SC SCH ×6 (00:33→21:20)
[2019-12-03] MEDS: OXYCODONE/ACETAMINOPHEN 10-325 TAB PO PRN ×4 (04:03→21:35)
[2019-12-03] MEDS: FLUTICASONE PROPIONATE NA SPR 16 GM BTL NAE PRN ×2 (04:04→21:42)
[2019-12-03] MEDS: LEVOTHYROXINE SODIUM 100 MCG TABLET PO SCH (06:29)
[2019-12-03] MEDS: HEPARIN SOD 5,000 UNIT/0.5 ML VIAL SQ SCH ×3 (06:29→21:38)
[2019-12-03] MEDS: PREGABALIN 100 MG CAP PO SCH ×3 (08:32→21:35)
[2019-12-03] MEDS: predniSONE 20 MG TAB PO SCH (08:33)
[2019-12-03] MEDS: ISOSORBIDE MONO EXTENDED REL 30 MG TABCR PO SCH (08:33)
[2019-12-03] MEDS: CHOLECALCIFEROL 1,000 UNITS 25 MCG TAB PO SCH (08:34)
[2019-12-03] MEDS: LORATADINE 10 MG TAB PO SCH (08:34)
[2019-12-03] MEDS: ASPIRIN 81 MG ECTAB PO SCH (08:35)
[2019-12-03] MEDS: FUROSEMIDE 80 MG TAB PO SCH ×2 (08:35→09:00)
[2019-12-03] MEDS: POTASSIUM CHLORIDE 10 MEQ TABCR PO SCH (08:35)
[2019-12-03] MEDS: lisinopriL 20 MG TAB PO SCH (08:35)
[2019-12-03] MEDS: METOPROLOL TARTRATE 50 MG TAB PO SCH (08:36)
[2019-12-03] MEDS: INSULIN GLARGINE SOLOSTAR 100 UNITS/ML 3 ML PEN SC SCH ×2 (08:38→21:19)
[2019-12-03] MEDS: PANTOprazole 40 MG TAB PO SCH (08:39)
--- NOTE | 2019-12-03 10:14 | Pharmacy Report ---
Pharmacy Glycemic Short Note 2 - Date of Service December 03, 2019 - Glycemic Short BSG Results (Last 24 hours): 12/02/19 12/02/19 12/02/19 11:32 11:32 11:38 POC Glucose 364 H* 385 H* 369 H* 12/02/19 12/02/19 12/02/19 16:28 20:17 20:19 POC Glucose 291 H 430 H* 424 H* 12/03/19 12/03/19 12/03/19 00:12 03:57 07:59 POC Glucose 177 H 167 H 155 H OUTPATIENT ANTIDIABETIC REGIMEN: * Levemir 30 units SC BID * Novolog units SC TIDM * Exenatide 2mg SQ weekly * A1c = 7.7 % on 12/02/19 Risk Factors for Insulin Resistance: * Steroids: methylprednisolone 40 mg IV q8h --> d/c yesterday after 2nd dose, started Prednisone 20mg PO daily x 5 days today * Diet: T2DM ASSESSMENT: 12/03 * Patient is currently receiving an average of 156 units of insulin per day * 90 units of basal insulin * 66 units of prandial/correctional insulin * BSGs ranging 155 -430mg/dl over the past 24hrs * Risk factors for insulin resistance are decreasing over the past 24hrs * Steroid dosing decreasing -- Solu-medrol to Prednisone today * Infection is being adequately treated- IV antibiotics discontinued * ADA & AACE recommend a goal blood sugar range 140-180 mg/dl for the majority of critically ill & non-critically ill patients. However, more stringent targets may be selected in individual cases. Will utilize more stringent goal of 110-140mg/dl based on patient age & comorbidities. Additionally, tighter glycemic control is warranted to facilitate wound/infection healing. 12/02 * 74 yo F with T2DM on >100 units/day insulin as an outpatient with good HbA1c * BSG's elevated as inpatient - likely steroid induced * Will increase Lantus 2nd AM fasting elevation * Will significantly tighten Novolog PLAN FOR INPATIENT GLYCEMIC CONTROL: * Basal insulin * Lantus SQ BID * 30 units BSG < 180mg/dl * 40 units for BSG 180mg/dl or greater * Bolus insulin - continue at this time, loosen parameters as steroid effects wear off * NovoLog per scale ACHS or Q6hrs while NPO * CHANGE: Goal Range: Low 110 mg/dL - High 140 mg/dL * Correction Factor: 15 mg/dL/unit * Nutritional / Prandial insulin per carb ratio of 1 unit per 4 grams CHO c onsumed
--- NOTE | 2019-12-03 18:28 | Hospitalist Progress Note ---
Date of Service December 03, 2019 Assessment & Plan (1) Acute respiratory failure with hypoxia: This is a 74-year-old female with PMH of type 2 diabetes on insulin, chronic diastolic heart failure, hypothyroidism, CAD, depression, MONROE not on CPAP and other medical problems listed below who presents with progressive dyspnea on exertion x1 week. possible cause of respiratory failure : viral bronchitis with COPD exacerbation ? ( no formal dx of COPD ) -Presented with wheezing, nasal congestion, nonproductive cough and dyspnea on exertion x 1 week -Initially hypoxic at 85% on room air. required supplemental 02 respiratory symptom has resolved , no hypoxia , in room air , no audible wheeze , no ROQUE -remains Afebrile, no leukocytosis, flu PCR negative, lactate and procalcitonin within normal limits chest CTA without evidence of airspace consolidation, pleural effusion or evidence of PE Patient has a minimal increase right now, change to p.o. prednisone, no antibiotic needed pt is a non smoker /but had second hand smoking exposure for long time will need formal lung function test as out pt to confirm dx of obstructive lung disease No evidence of aspiration recent VFSS study in 09/2019 was negative for aspiration , mild esophageal dysmotility pt has been following guideline for slippery diet no s/s of aspiration during meals remains in room air , no infiltrate noted in CT chest appreciate input from Speech therapy pt finished 100% of her meal w/o any s/s of dysphagia does not need formal swallow eval (2) Chronic diastolic CHF (congestive heart failure): chronic diastolic CHF with preserved LV function ( HFpEF) vol status stable no evidence of pulm congestion in chest xray /CT chest cont home dose of Po Lasix and lisinopril (3) HTN (hypertension): Continue lisinopril, lopressor/Lasix (4) CAD (coronary artery disease): No chest pain or ischemic changes -Continue aspirin, statin (5) DM type 2 (diabetes mellitus, type 2): BSG was markedly elevated due to IV Solu medrol on insulin [facility] pharmacy consulted for glycemic management ; patient input Steroid dose is tapered, patient's is clinically improving, blood sugar much better controlled after adjustment of insulin sliding scale (6) Chronic pain: History of degenerative disc disease in neck and back -Continue home dose oxycodone-symptom well controlled (7) MONROE (obstructive sleep apnea): Not on CPAP DVT Ppx: SQ heparin Code status: FULL FAMILY PHYSICIAN :Dr Jazzmine Boland at [facility] Dispo: expected to be discharged home tomorrow Subjective Cough has improved, no fever or chills Does not have any shortness of breath no hypoxia, Feels much better today Review of Systems Review of Systems: At least ten systems reviewed and negative except as noted in the HPI. Respiratory: as per Subjective / HPI; no cough, no dyspnea, no dyspnea on exertion, no pain with cough, no sputum production and no wheezing Physical Exam Constitutional: WD/WN, vitals as above no acute distress Eyes: PERRL, conjunctivae normal, anicteric sclerae ENMT: external ear and nose normal, oropharynx normal Neck: trachea midline, no thyromegaly Respiratory: normal respiratory effort, lungs clear to auscultation + respiratory distress; no cough Auscultation: no wheezes Cardiovascular: RRR, no murmur, no edema Gastrointestinal (Abdomen): normal bowel sounds, soft, nontender, no hepatosplenomegaly Musculoskeletal: no cyanosis or clubbing, extremities motor strength 5/5 Skin: no rashes, warm and dry Neurologic: PERRL, EOMI, accommodation nl, no face palsy, no dysarthria Psychiatric: A+Ox3, euthymic affect Results & Data ([facility]) Vital Signs (Past 12 Hours) Vital Signs Temp Pulse Resp BP Pulse Ox 12/03/19 15:07 36.7 C 77 18 141/63 H 90 12/03/19 07:24 36.5 C 79 18 167/81 H 94
[2019-12-03] MEDS: ROSUVASTATIN CALCIUM 20 MG TAB PO SCH (21:35)
[2019-12-03] MEDS: MONTELUKAST SODIUM 10 MG TABLET PO SCH (21:35)
[2019-12-03] MEDS: METOPROLOL TARTRATE 25 MG TAB PO SCH (21:35)
[2019-12-04] MEDS: HEPARIN SOD 5,000 UNIT/0.5 ML VIAL SQ SCH ×2 (05:45→13:39)
[2019-12-04] MEDS: LEVOTHYROXINE SODIUM 100 MCG TABLET PO SCH (05:47)
[2019-12-04] MEDS: OXYCODONE/ACETAMINOPHEN 10-325 TAB PO PRN ×2 (08:16→13:41)
[2019-12-04] MEDS: PREGABALIN 100 MG CAP PO SCH ×2 (08:16→13:38)
[2019-12-04] MEDS: ISOSORBIDE MONO EXTENDED REL 30 MG TABCR PO SCH (08:18)
[2019-12-04] MEDS: LORATADINE 10 MG TAB PO SCH (08:19)
[2019-12-04] MEDS: POTASSIUM CHLORIDE 10 MEQ TABCR PO SCH (08:19)
[2019-12-04] MEDS: ASPIRIN 81 MG ECTAB PO SCH (08:19)
[2019-12-04] MEDS: CHOLECALCIFEROL 1,000 UNITS 25 MCG TAB PO SCH (08:19)
[2019-12-04] MEDS: PANTOprazole 40 MG TAB PO SCH (08:20)
[2019-12-04] MEDS: FUROSEMIDE 80 MG TAB PO SCH (08:20)
[2019-12-04] MEDS: lisinopriL 20 MG TAB PO SCH (08:20)
[2019-12-04] MEDS: METOPROLOL TARTRATE 50 MG TAB PO SCH (08:22)
[2019-12-04] MEDS: predniSONE 20 MG TAB PO SCH (08:23)
[2019-12-04] MEDS: INSULIN GLARGINE SOLOSTAR 100 UNITS/ML 3 ML PEN SC SCH (08:26)
[2019-12-04] MEDS: INSULIN ASPART 100 UNITS/ML 3 ML PEN SC SCH ×2 (08:29→12:42)
--- NOTE | 2019-12-04 10:40 | Hospitalist Progress Note ---
Date of Service December 04, 2019 Assessment & Plan (1) Acute respiratory failure with hypoxia: Symptom has completely resolved, Adequate oxygenation in room air, no dyspnea on exertion, Has minimum cough, no fever or chills Stable to be discharged home today This is a 74-year-old female with PMH of type 2 diabetes on insulin, chronic diastolic heart failure, hypothyroidism, CAD, depression, MONROE not on CPAP and other medical problems listed below who presents with progressive dyspnea on exertion x1 week. possible cause of respiratory failure : viral bronchitis with underlying asthma vs COPD exacerbation ? ( no formal dx of COPD ) -Presented with wheezing, nasal congestion, nonproductive cough and dyspnea on exertion x 1 week -Initially hypoxic at 85% on room air. required supplemental 02 respiratory symptom has resolved , no hypoxia , in room air , no audible wheeze , no ROQUE -remains Afebrile, no leukocytosis, flu PCR negative, lactate and procalcitonin within normal limits chest CTA without evidence of airspace consolidation, pleural effusion or evidence of PE Patient has a minimal increase right now, change to p.o. prednisone, no antibiotic needed pt is a non smoker /but had second hand smoking exposure for long time will need formal lung function test as out pt to confirm dx of obstructive lung disease No evidence of aspiration recent VFSS study in 09/2019 was negative for aspiration , mild esophageal dysmotility pt has been following guideline for slippery diet no s/s of aspiration during meals remains in room air , no infiltrate noted in CT chest appreciate input from Speech therapy pt finished 100% of her meal w/o any s/s of dysphagia does not need formal swallow eval (2) Chronic diastolic CHF (congestive heart failure): chronic diastolic CHF with preserved LV function ( HFpEF) vol status stable no evidence of pulm congestion in chest xray /CT chest cont home dose of Po Lasix and lisinopril (3) HTN (hypertension): Continue lisinopril, lopressor/Lasix (4) CAD (coronary artery disease): No chest pain or ischemic changes -Continue aspirin, statin (5) DM type 2 (diabetes mellitus, type 2): Insulin-dependent, BSG was markedly elevated due to IV Solu medrol hb Globin A1c 7.7 on 12/02/2019 suggestive of good control pharmacy consulted for glycemic management ; appreciate input Steroid dose is tapered, patient's is clinically improving, blood sugar much better controlled after adjustment of insulin sliding scale Patient will be discharged home with low taper dose (6) Chronic pain: History of degenerative disc disease in neck and back -Continue home dose oxycodone -symptom well controlled (7) MONROE (obstructive sleep apnea): Not on CPAP DVT Ppx: SQ heparin Code status: FULL FAMILY PHYSICIAN :Dr Jazzmine Boland at [facility] Dispo: Stable to be discharged home today Subjective Minimum nonproductive cough, No shortness of breath no dyspnea on exertion No fever or chills Ambulating independently No audible wheeze, patient reports of feeling fine Stable to be discharged home today Review of Systems Review of Systems: At least ten systems reviewed and negative except as noted in the HPI. Respiratory: as per Subjective / HPI; no cough, no dyspnea, no dyspnea on exertion, no pain with cough, no sputum production and no wheezing Physical Exam Constitutional: WD/WN, vitals as above no acute distress Eyes: PERRL, conjunctivae normal, anicteric sclerae ENMT: external ear and nose normal, oropharynx normal Neck: trachea midline, no thyromegaly Respiratory: normal respiratory effort, lungs clear to auscultation no cough Auscultation: no wheezes Cardiovascular: RRR, no murmur, no edema Gastrointestinal (Abdomen): normal bowel sounds, soft, nontender, no hepatosplenomegaly Musculoskeletal: no cyanosis or clubbing, extremities motor strength 5/5 Skin: no rashes, warm and dry Neurologic: PERRL, EOMI, accommodation nl, no face palsy, no dysarthria Psychiatric: A+Ox3, euthymic affect Results & Data ([facility]) Vital Signs (Past 12 Hours) Vital Signs Temp Pulse Resp BP BP Pulse Ox 12/04/19 07:12 36.9 C 61 18 149/80 H 94 12/03/19 23:54 36.9 C 67 18 149/75 H 92
--- NOTE | 2019-12-04 11:10 | Discharge Summary ---
Date of Service December 04, 2019 Admission HPI Per Admitting Provider This is a 74-year-old female with PMH of type 2 diabetes on insulin, chronic diastolic heart failure, hypothyroidism, CAD, depression, MONROE not on CPAP and other medical problems listed below who presents with progressive dyspnea on exertion x1 week. Patient states that over the past week she has developed wheezing, nasal congestion, nonproductive cough and shortness of breath that is been progressively worse over the past 2 days. Is unable to ambulate even around her house without becoming short of breath. Has been around her grandson who is sick. Denies fever, chills, lightheadedness, visual changes, chest pain, palpitations, hemoptysis, nausea, vomiting, abdominal pain, dysuria, diarrhea or constipation. Has history of dysphasia issues and admits to sometimes choking on food. Underwent EGD with dilation in June 2019 with minimal improvement, per GI note. Was seen by speech in August 2019 for swallow study that did not show any signs of aspiration but did show some dysmotility. Slippery diet with thin liquids recommended. Principal Diagnosis Acute hypoxemic respiratory failure: Resolved, possible viral bronchitis, will need evaluation for COPD as an outpatient Discharge Exam Constitutional WD/WN, vitals as above no acute distress Eyes PERRL, conjunctivae normal, anicteric sclerae ENMT external ear and nose normal, oropharynx normal Neck trachea midline, no thyromegaly Respiratory normal respiratory effort, lungs clear to auscultation no cough Auscultation: no wheezes Cardiovascular RRR, no murmur, no edema Gastrointestinal (Abdomen) normal bowel sounds, soft, nontender, no hepatosplenomegaly Musculoskeletal no cyanosis or clubbing, extremities motor strength 5/5 Skin no rashes, warm and dry Neurologic PERRL, EOMI, accommodation nl, no face palsy, no dysarthria Psychiatric A+Ox3, euthymic affect Discharge Data Allergies Allergy/AdvReac Type Severity Reaction Status Date / Time carvedilol AdvReac Mild HEART Verified 12/01/19 19:28 RACING Consultations 12/01/19 17:50 ED Decision to Admit Stat Ordered Studies 12/01/19 16:31 CT angio chest PE protocol Stat Hospital Course (1) Acute respiratory failure with hypoxia: Symptom has completely resolved, Adequate oxygenation in room air, no dyspnea on exertion, Has minimum cough, no fever or chills Stable to be discharged home today This is a 74-year-old female with PMH of type 2 diabetes on insulin, chronic diastolic heart failure, hypothyroidism, CAD, depression, MONROE not on CPAP and other medical problems listed below who presents with progressive dyspnea on exertion x1 week. possible cause of respiratory failure : viral bronchitis with underlying asthma vs COPD exacerbation ? ( no formal dx of COPD ) -Presented with wheezing, nasal congestion, nonproductive cough and dyspnea on exertion x 1 week -Initially hypoxic at 85% on room air. required supplemental 02 respiratory symptom has resolved , no hypoxia , in room air , no audible wheeze , no ROQUE -remains Afebrile, no leukocytosis, flu PCR negative, lactate and procalcitonin within normal limits chest CTA without evidence of airspace consolidation, pleural effusion or evidence of PE Patient has a minimal increase right now, change to p.o. prednisone, no antibiotic needed pt is a non smoker /but had second hand smoking exposure for long time will need formal lung function test as out pt to confirm dx of obstructive lung disease No evidence of aspiration recent VFSS study in 09/2019 was negative for aspiration , mild esophageal dysmotility pt has been following guideline for slippery diet no s/s of aspiration during meals remains in room air , no infiltrate noted in CT chest appreciate input from Speech therapy pt finished 100% of her meal w/o any s/s of dysphagia does not need formal swallow eval (2) Chronic diastolic CHF (congestive heart failure): chronic diastolic CHF with preserved LV function ( HFpEF) vol status stable no evidence of pulm congestion in chest xray /CT chest cont home dose of Po Lasix and lisinopril (3) HTN (hypertension): Continue lisinopril, lopressor/Lasix (4) CAD (coronary artery disease): No chest pain or ischemic changes -Continue aspirin, statin (5) DM type 2 (diabetes mellitus, type 2): Insulin-dependent, BSG was markedly elevated due to IV Solu medrol hb Globin A1c 7.7 on 12/02/2019 suggestive of good control pharmacy consulted for glycemic management ; appreciate input Steroid dose is tapered, patient's is clinically improving, blood sugar much better controlled after adjustment of insulin sliding scale Patient will be discharged home with low taper dose (6) Chronic pain: History of degenerative disc disease in neck and back -Continue home dose oxycodone -symptom well controlled (7) MONROE (obstructive sleep apnea): Not on CPAP DVT Ppx: SQ heparin Code status: FULL FAMILY PHYSICIAN :Dr Jazzmine Boland at [facility] Dispo: Stable to be discharged home today Total Time Total Time Spent Total Time Spent (In Minutes): Approximately 40 minutes Total Time Includes: Examination of the Patient, Discharge Planning and Medication Reconciliation Discharge Plan Discharge Items Patient Disposition: Home - Self-Care Reason For Visit: ACUTE HYPOXIC RESP FAILURE Discharge Diagnosis: Acute hypoxemic respiratory failure: Resolved, possible viral bronchitis, will need evaluation for COPD as an outpatient Activity: Resume your previous activity Non-emergency contact: Primary Care Provider Call non-emergency contact if: you have any medication questions Follow-up/Referrals: Jazzmine Boland DO [Primary Care Provider] - 12/07/19 12:45 pm (Discharge Follow Up for PCP with Dr. Mcgill on 12/07/2019 at 12:45, in same office- [facility].) Diet: Carb Consistent or DM2 and Heart Healthy Addtl Attending Provider Instructions: You will need lung function test: Diagnosis underlying lung condition: Asthma or COPD Your family physician will be able to schedule the test for you Pending Studies at Discharge: Yes Studies:: Lung function test Stand-Alone Forms: [email or web address], Smoking Cessation Medications and DC Order Prescriptions: New prednisone 10 mg tablet 10 mg PO UD Qty: 7 RF: 0 Continued (DME) OneTouch Verio strip See Dose Instructions .ROUTE .MEDSUPPLY Qty: 120 RF: 2 lisinopril 20 mg tablet 20 mg PO QAM RF: 0 isosorbide mononitrate 30 mg tablet extended release 24 hr 30 mg PO QAM RF: 0 potassium chloride 10 mEq tablet extended release 10 meq PO QAM RF: 0 oxycodone-acetaminophen 10-325 mg tablet 1 tab PO QID PRN (Reason: Pain) RF: 0 furosemide 80 mg tablet 80 mg PO QAM RF: 0 insulin aspart U-100 [Novolog U-100 Insulin aspart] 100 unit/mL solution See Rx Instructions .ROUTE .COMPLEX RF: 0 pantoprazole 40 mg tablet,delayed release (DR/EC) 40 mg PO QAM RF: 0 metoprolol tartrate 50 mg tablet 50 mg PO QAM RF: 0 metoprolol tartrate 50 mg tablet 25 mg PO QPM RF: 0 montelukast 10 mg tablet 10 mg PO HS RF: 0 albuterol sulfate 90 mcg/actuation HFA aerosol inhaler 2 puff inhalation Q4H PRN (Reason: Cough/SOB/Wheezing) RF: 0 fluticasone propionate 50 mcg/actuation spray,suspension 1 spray INTRANASAL DAILY PRN (Reason: Allergy Symptoms) RF: 0 loratadine 10 mg tablet 10 mg PO QAM RF: 0 rosuvastatin 20 mg tablet 20 mg PO HS RF: 0 pregabalin 200 mg capsule 200 mg PO TID RF: 0 Levemir U-100 Insulin 100 unit/mL solution 30 unit SUBCUT BID RF: 0 Bydureon 2 mg/0.65 mL pen injector 2 mg SUBCUT WK RF: 0 aspirin 81 mg Tablet,Delayed Release (Dr/Ec) 81 mg PO QAM RF: 0 levothyroxine 100 mcg tablet 100 mcg PO QAM RF: 0 polyethylene glycol 3350 17 gram/dose Powder 17 g PO DAILY PRN (Reason: Constipation) RF: 0 cholecalciferol (vitamin D3) [Vitamin D3] 125 mcg (5,000 unit) Tablet 5,000 unit PO QAM RF: 0 Discharge Orders: Discharge Order (Routine); Ordered 12/04/19 Ordered By: Brenda Griffiths/Other Patient Handouts: Pulmonary Function Tests Admission Data Admit Date/Time: 12/01/19 18:03 Attending Provider: Brenda Fernandez Admit Provider: Amanda Cedeno Primary Care Provider: Jazzmine Boland Other Providers: Amanda Cedeno
== END 2019-12-04 14:08 | disposition home or self-care (01) ==
LOC: ED 14:25 → INTOOBSV 18:03 → SUATTDRO 18:03 → 2S 18:03 → 4W 12-02 21:06

== ENCOUNTER 2020-06-03 08:28 | Inpatient (IN) ==
[2020-06-03] MEDS ORDERED: HYDROmorphone INJ 2 MG/ML SYR/VIAL IM STA (08:44)
[2020-06-03] MEDS ORDERED: LIDOCAINE 5% 1 PATCH TD STA (08:44)
[2020-06-03] MEDS ORDERED: DEXAMETHASONE SOD INJ 10 MG/ML VIAL IM ONE (08:44)
[2020-06-03] MEDS ORDERED: ONDANSETRON 4 MG OD TAB PO STA (08:46)
--- NOTE | 2020-06-03 09:19 | Emergency Department Note ---
History of Present Illness General Chief complaint: Hip Pain Stated complaint: LEFT SIDED ABD PAIN INTO LEG Time Seen by Provider: 06/03/20 08:37 Source: patient, family (daughter, grandson), RN notes reviewed and old records reviewed Mode of arrival: ambulatory Limitations: no limitations History of Present Illness Provider complaint: back pain, hip pain Onset (ago): week(s) 2 Location: back and left Radiation: extremity Severity: severe Pain Consistency: + colicky Maximum Pain Intensity: 9 Current Pain Intensity: 9 Quality: + aching Relieved By: + immobilization Exacerbated By: + movement Associated symptoms: + denies other symptoms; no chest pain, no diaphoresis, no fever/chills, no headaches, no nausea/vomiting and no shortness of breath Treatments prior to arrival: other (Percocet) This is a 75-year-old female who presents to the emergency department complaining of severe back and hip pain. The patient has been taking her pain medication at home without relief of the pain. She reports the pain is a stabbing sensation radiating down the leg. The patient has seen pain management multiple times. She denies any fevers or chills or falls. Home Medications Home Medications Medication Instructions Recorded Confirmed Type OneTouch Verio test strips #120 ea NS 06/12/19 06/03/20 Rx Bydureon 2 mg SUBCUT WK 12/01/19 06/03/20 History Levemir U-100 Insulin 30 unit SUBCUT BID 12/01/19 06/03/20 History albuterol sulfate 2 puff INHALATION Q4H PRN 12/01/19 06/03/20 History aspirin 81 mg PO QAM 12/01/19 06/03/20 History fluticasone propionate 1 spray INTRANASAL DAILY PRN 12/01/19 06/03/20 History furosemide 80 mg PO QAM 12/01/19 06/03/20 History insulin aspart U-100 [Novolog See Rx Instructions .ROUTE .COMPLEX 12/01/19 06/03/20 History U-100 Insulin aspart] isosorbide mononitrate 30 mg PO QAM 12/01/19 06/03/20 History levothyroxine 100 mcg PO QAM 12/01/19 06/03/20 History lisinopril 20 mg PO QAM 12/01/19 06/03/20 History loratadine 10 mg PO QAM 12/01/19 06/03/20 History metoprolol tartrate 25 mg PO QPM 12/01/19 06/03/20 History metoprolol tartrate 50 mg PO QAM 12/01/19 06/03/20 History montelukast 10 mg PO HS 12/01/19 06/03/20 History oxycodone-acetaminophen 1 tab PO QID PRN 12/01/19 06/03/20 History pantoprazole 40 mg PO QAM 12/01/19 06/03/20 History polyethylene glycol 3350 17 g PO DAILY PRN 12/01/19 06/03/20 History pregabalin 200 mg PO TID 12/01/19 06/03/20 History rosuvastatin 20 mg PO HS 12/01/19 06/03/20 History Allergies Allergy/AdvReac Type Severity Reaction Status Date / Time carvedilol AdvReac Mild HEART Verified 06/03/20 09:16 RACING Past Med/Surg History Medical History CAD (coronary artery disease) (Chronic) "cath 2012 - mild, non obstructive disease" Chronic diastolic CHF (congestive heart failure) (Chronic) "echo 2007 - EF 55%, diastolic dysfunction" Chronic pain CKD (chronic kidney disease) stage 3, GFR 30-59 ml/min DM type 2 (diabetes mellitus, type 2) (Chronic) HLD (hyperlipidemia) HTN (hypertension) (Chronic) Hypothyroidism (Chronic) MONROE (obstructive sleep apnea) (Chronic) PUD (peptic ulcer disease) (Chronic) Surgical History H/O cataract extraction H/O excision of lamina of cervical vertebra for decompression of spinal cord (Chronic) History of breast biopsy History of colonoscopy with polypectomy History of foot surgery History of hysterectomy (Chronic) History of tonsillectomy and adenoidectomy (Chronic) Family History Other Heart disease Stroke Social History Smoking Status: Never smoker Second Hand Exposure: No; Do You Dip or Chew Tobacco: No; Tobacco Cessation Education Requested by Patient: No Hx Alcohol Use: No Hx Substance Use: No Preferred Language: Eritrean Communication Ability: Effective Chief Executive Required: No Beliefs That Will Affect Care: None Current Living Situation: Alone Current Living Situation Comment: Lives at an Apartment Complex current occupational status: retired Other Information That Helps Us Care for You: No Feels Safe at Home: Yes Safety Concerns: Feels Safe At This Time Review of Systems A total of 10 systems reviewed and were otherwise negative Physical Exam Vital Signs Vital Signs - 24 hr 06/03/20 08:32 06/03/20 09:12 06/03/20 09:55 Temperature 37.0 C Temperature Source Oral Pulse Rate 68 Pulse Rate [Right Finger] 68 Pulse Rhythm Regular Pulse Strength Normal Respiratory Rate 20 20 Respiratory Effort / Characteristics Non-Labored Respiratory Depth Normal Normal Blood Pressure 167/75 H Blood Pressure [Right Arm] 153/70 H Blood Pressure Mean 105 Blood Pressure Mean [Right Arm] 97 Blood Pressure Position Sitting Pulse Oximetry 98 94 99 Oxygen Delivery Method Room Air Room Air Room Air Sepsis Recent Fever Within 48 Hours No Sepsis New/Unexplained Change in Mental Status No Sepsis Action Taken by Nursing No Action Required 06/03/20 11:08 06/03/20 12:31 Temperature Temperature Source Pulse Rate Pulse Rate [Right Finger] 66 68 Pulse Rhythm Pulse Strength Respiratory Rate 20 22 Respiratory Effort / Characteristics Non-Labored Spontaneous Non-Labored Respiratory Depth Normal Blood Pressure Blood Pressure [Right Arm] 142/64 H 154/96 H Blood Pressure Mean Blood Pressure Mean [Right Arm] 90 115 Blood Pressure Position Pulse Oximetry 94 94 Oxygen Delivery Method Room Air Room Air Sepsis Recent Fever Within 48 Hours Sepsis New/Unexplained Change in Mental Status Sepsis Action Taken by Nursing VITAL SIGNS - Vital signs and nursing notes were reviewed. GENERAL - 75-year-old female appearing stated age who in moderate distress, crying. Communicates well with provider and answers questions appropriately. SKIN - Without rashes. HEAD - NC/AT. EYES - PERRL with EOMI bilaterally. Sclera anicteric. Palpebral conjunctiva pink and moist with no injection noted. EARS - No deformities of external structures noted on gross examination bilaterally. No pain elicited with palpation of the tragus bilaterally. External auditory canals without discharge or otorrhea. Tympanic membranes pearly frazier without retraction or bulging. No fluid or purulent material visualized behind the TM. Handle of malleus, umbo, cone of light, pars tensa/flaccid all easily visualized. NOSE - Midline and without cyanosis. No epistaxis or purulent drainage noted. Septum midline without deviation or septal hematoma noted. MOUTH/OROPHARYNX - Without perioral cyanosis. Buccal mucosa pink and moist and without leukoplakia. Tongue midline with equal elevation of palate bilaterally. No tonsillar hypertrophy, erythema, or exudates noted. dentition noted. NECK - Neck with FROM. Supple to palpation. lymphadenopathy noted. No nuchal rigidity. LUNGS - Chest wall symmetric without accessory muscle use, intercostals retractions, or central cyanosis. Normal vesicular breath sounds CTA B/L. No wheezes, rales, or rhonchi appreciated. CARDIAC - RRR with S1/S2. No murmur, rubs, or gallops appreciated. ABDOMEN - Abdominal contour without pulsations or visible masses. BS normoactive all four quadrants. No tenderness, palpable masses, hepatosplenomegaly, or ascites noted. EXTREMITIES - No clubbing or peripheral cyanosis. No pretibial edema present. +3/5 radial, posterior tibial, and dorsalis pedis pulses palpated throughout. +5/5 strength noted in UE/LE bilaterally. NEUROLOGIC - Cranial nerves II through XII grossly intact. Sensory intact to light touch throughout. Patellar reflexes +2/4. PSYCH - A&Ox3 and cooperates fully with examiner. Pt is very pleasant and interacts well with examiner. Course Administered Medications Acetaminophen (Tylenol) 650 mg PO Q4H PRN PRN Reason: pain/fever Stop: 07/03/20 13:08 Last Admin: 06/05/20 08:57 Dose: 650 mg Documented by: [id number] Admin: 06/04/20 16:33 Dose: 650 mg Documented by: [id number] Admin: 06/04/20 08:48 Dose: 650 mg Documented by: [id number] Admin: 06/04/20 03:58 Dose: 650 mg Documented by: [id number] Admin: 06/03/20 23:13 Dose: 650 mg Documented by: [id number] Admin: 06/03/20 16:10 Dose: 650 mg Documented by: [id number] Aspirin (Ecotrin Ectab) [facility] [place] Stop: 07/04/20 08:59 Last Admin: 06/05/20 07:57 Dose: 81 mg Documented by: [id number] Admin: 06/04/20 08:44 Dose: 81 mg Documented by: [id number] Calcium Carbonate (Tums) 500 mg PO TID PRN PRN Reason: Indigestion Stop: 07/05/20 00:00 Last Admin: 06/05/20 00:34 Dose: 500 mg Documented by: [id number] Diclofenac Sodium (Voltaren 1% Top) 2 gm EXT BID [facility] Stop: 07/04/20 20:59 Last Admin: 06/05/20 07:58 Dose: 2 gm Documented by: [id number] Admin: 06/04/20 22:34 Dose: 2 gm Documented by: [id number] Enoxaparin Sodium (Lovenox) 30 mg SQ Q24H [facility] Stop: 07/03/20 20:59 Last Admin: 06/04/20 22:17 Dose: 30 mg Documented by: [id number] Admin: 06/03/20 20:10 Dose: 30 mg Documented by: [id number] Furosemide (Lasix) 80 mg PO QAM [facility] Stop: 07/04/20 08:59 Last Admin: 06/05/20 07:56 Dose: 80 mg Documented by: [id number] Admin: 06/04/20 08:44 Dose: 80 mg Documented by: [id number] Hydromorphone HCl (Dilaudid) 1 mg IV Q6 PRN PRN Reason: Pain Stop: 06/17/20 16:59 Last Admin: 06/05/20 07:59 Dose: 1 mg Documented by: [id number] Admin: 06/05/20 02:30 Dose: 1 mg Documented by: [id number] Admin: 06/04/20 20:55 Dose: 1 mg Documented by: [id number] Admin: 06/04/20 15:32 Dose: 1 mg Documented by: [id number] Admin: 06/04/20 09:19 Dose: 1 mg Documented by: [id number] Admin: 06/04/20 02:59 Dose: 1 mg Documented by: [id number] Admin: 06/03/20 20:49 Dose: 1 mg Documented by: [id number] Insulin Aspart (Novolog Flexpen) 0 units SC [facility]; Protocol Stop: 07/03/20 17:04 Last Admin: 06/05/20 08:02 Dose: 4 units Documented by: [id number] Cosigned by: [id number] Admin: 06/04/20 20:20 Dose: Not Given Documented by: [id number] Cosigned by: [id number] Admin: 06/04/20 17:14 Dose: Not Given Documented by: [id number] Cosigned by: [id number] Admin: 06/04/20 12:00 Dose: 17 units Documented by: [id number] Cosigned by: [id number] Admin: 06/04/20 08:45 Dose: 8 units Documented by: [id number] Cosigned by: [id number] Admin: 06/03/20 20:14 Dose: 9 units Documented by: [id number] Cosigned by: [id number] Admin: 06/03/20 17:32 Dose: 20 units Documented by: [id number] Cosigned by: [id number] Insulin Detemir (Levemir Flextouch) 28 units SC BID [facility]; Protocol Stop: 07/05/20 08:59 Last Admin: 06/05/20 08:04 Dose: 28 units Documented by: [id number] Cosigned by: [id number] Isosorbide Mononitrate (Imdur Extended Rel) 30 mg [facility] [place] Stop: 07/04/20 08:59 Last Admin: 06/05/20 07:57 Dose: 30 mg Documented by: [id number] Admin: 06/04/20 08:44 Dose: 30 mg Documented by: [id number] Levothyroxine Sodium (Synthroid) 100 mcg PO DAILYBB [facility] Stop: 07/04/20 06:29 Last Admin: 06/05/20 06:24 Dose: 100 mcg Documented by: [id number] Admin: 06/04/20 06:04 Dose: 100 mcg Documented by: [id number] Lidocaine (Lidoderm 5%) 1 patch TD [facility] [place] Stop: 07/04/20 08:59 Last Admin: 06/05/20 08:17 Dose: Not Given Documented by: [id number] Admin: 06/04/20 08:47 Dose: 1 patch Documented by: [id number] Lisinopril (Zestril) 20 mg [facility] [place] Stop: 07/04/20 08:59 Last Admin: 06/05/20 07:57 Dose: 20 mg Documented by: [id number] Admin: 06/04/20 08:44 Dose: 20 mg Documented by: [id number] Loratadine (Claritin) 10 mg [facility] [place] Stop: 07/04/20 08:59 Last Admin: 06/05/20 07:57 Dose: 10 mg Documented by: [id number] Admin: 06/04/20 08:44 Dose: 10 mg Documented by: [id number] Metoprolol Tartrate (Lopressor) 50 mg PO [facility] [place] Stop: 07/04/20 08:59 Last Admin: 06/05/20 08:57 Dose: 50 mg Documented by: [id number] Admin: 06/04/20 21:24 Dose: 50 mg Documented by: [id number] Admin: 06/04/20 08:44 Dose: 50 mg Documented by: [id number] Metoprolol Tartrate (Lopressor) 25 mg PO QPM [facility] Stop: 07/03/20 20:59 Last Admin: 06/04/20 22:17 Dose: 25 mg Documented by: [id number] Admin: 06/03/20 20:11 Dose: 25 mg Documented by: [id number] Miscellaneous (Carbohydrates For Hypoglycemia) 15 - 30 gm PO UD PRN PRN Reason: Hypoglycemia Protocol Stop: 07/03/20 16:36 Last Admin: 06/04/20 16:39 Dose: 15 gm Documented by: [id number] Miscellaneous (Remove Lidoderm Patch) 1 ea N/A DAILY@2100 [facility] Stop: 07/03/20 20:59 Last Admin: 06/04/20 22:18 Dose: 1 ea Documented by: [id number] Admin: 06/03/20 20:15 Dose: Not Given Documented by: [id number] Montelukast Sodium (Singulair) 10 mg PO [facility] Stop: 07/03/20 20:59 Last Admin: 06/04/20 21:25 Dose: 10 mg Documented by: [id number] Admin: 06/03/20 20:16 Dose: 10 mg Documented by: [id number] Ondansetron HCl (Zofran) 4 mg IV Q6H PRN PRN Reason: Nausea Stop: 07/03/20 13:08 Last Admin: 06/05/20 09:39 Dose: 4 mg Documented by: [id number] Oxycodone/Acetaminophen (Percocet 10/325mg) 1 tab PO QID PRN PRN Reason: Pain Stop: 06/17/20 16:59 Last Admin: 06/05/20 06:23 Dose: 1 tab Documented by: [id number] Admin: 06/04/20 23:51 Dose: 1 tab Documented by: [id number] Admin: 06/04/20 19:49 Dose: 1 tab Documented by: [id number] Admin: 06/04/20 11:58 Dose: 1 tab Documented by: [id number] Admin: 06/04/20 07:28 Dose: 1 tab Documented by: [id number] Admin: 06/03/20 22:41 Dose: 1 tab Documented by: [id number] Admin: 06/03/20 17:38 Dose: 1 tab Documented by: [id number] Pantoprazole Sodium (Protonix) 40 mg PO QAM [facility] Stop: 07/04/20 08:59 Last Admin: 06/05/20 07:57 Dose: 40 mg Documented by: [id number] Admin: 06/04/20 08:44 Dose: 40 mg Documented by: [id number] Pregabalin (Lyrica) 100 mg PO TID [place] Stop: 07/03/20 20:59 Last Admin: 06/05/20 07:56 Dose: 100 mg Documented by: [id number] Admin: 06/04/20 21:24 Dose: 100 mg Documented by: [id number] Admin: 06/04/20 14:37 Dose: 100 mg Documented by: [id number] Admin: 06/04/20 09:19 Dose: 100 mg Documented by: [id number] Admin: 06/03/20 20:10 Dose: 100 mg Documented by: [id number] Rosuvastatin Calcium (Crestor) 20 mg PO HS [facility] Stop: 07/03/20 20:59 Last Admin: 06/04/20 21:24 Dose: 20 mg Documented by: [id number] Admin: 06/03/20 20:10 Dose: 20 mg Documented by: [id number] Senna/Docusate Sodium (Senokot S) 1 tab PO BID [facility] Stop: 07/03/20 20:59 Last Admin: 06/05/20 07:58 Dose: 1 tab Documented by: [id number] Admin: 06/04/20 22:18 Dose: 1 tab Documented by: [id number] Admin: 06/04/20 08:44 Dose: 1 tab Documented by: [id number] Admin: 06/03/20 20:16 Dose: 1 tab Documented by: [id number] Discontinued Medications Dexamethasone (Decadron) 10 mg IM NOW ONE Stop: 06/03/20 08:45 Last Admin: 06/03/20 08:52 Dose: 10 mg Documented by: [id number] Hydromorphone HCl (Dilaudid) 2 mg IM NOW STA Stop: 06/03/20 08:45 Last Admin: 06/03/20 08:51 Dose: 2 mg Documented by: [id number] Hydromorphone HCl (Dilaudid) 1 mg IM NOW STA Stop: 06/03/20 10:17 Last Admin: 06/03/20 10:21 Dose: 1 mg Documented by: [id number] Hydromorphone HCl (Dilaudid) 1 mg IM NOW STA Stop: 06/03/20 11:16 Last Admin: 06/03/20 11:20 Dose: 1 mg Documented by: [id number] Hydromorphone HCl (Dilaudid) 0.5 mg IV NOW STA Stop: 06/05/20 00:35 Last Admin: 06/05/20 00:43 Dose: 0.5 mg Documented by: [id number] Insulin Aspart (Novolog Flexpen) 0 units SC TODAY@0000,0400 [facility]; Protocol Stop: 06/04/20 04:01 Last Admin: 06/04/20 03:52 Dose: Not Given Documented by: [id number] Cosigned by: [id number] Admin: 06/04/20 00:13 Dose: Not Given Documented by: [id number] Cosigned by: [id number] Insulin Detemir (Levemir Flextouch) 0 units SC BID [facility]; Protocol Stop: 07/03/20 19:04 Last Admin: 06/04/20 22:16 Dose: 30 units Documented by: [id number] Cosigned by: [id number] Admin: 06/04/20 08:46 Dose: 30 units Documented by: [id number] Cosigned by: [id number] Admin: 06/03/20 20:05 Dose: 35 units Documented by: [id number] Cosigned by: [id number] Lidocaine (Lidoderm 5%) 1 patch TD NOW STA Stop: 06/03/20 08:45 Last Admin: 06/03/20 08:51 Dose: 1 patch Documented by: [id number] Miscellaneous Information (Consult Glycemic Management Pharmacy) 1 ea N/A NOW STA; Protocol Stop: 06/03/20 14:44 Last Admin: 06/04/20 05:39 Dose: 1 ea Documented by: [id number] Ondansetron HCl (Zofran Odt) 4 mg PO NOW STA Stop: 06/03/20 08:47 Last Admin: 06/03/20 08:51 Dose: 4 mg Documented by: [id number] Medical Decision Making Differential Diagnosis Fracture, subluxation, dislocation, contusion, ligamentous injury, neurovascular, compartment syndrome, rhabdomyolysis, as well as other pathologies. Medical Records Attestation: I reviewed the patient's medical records. Home Medications Current Medication List: was personally reviewed by me Laboratory Data Attestation: I reviewed the patient's lab results. Result diagrams: 06/03/20 12:55 06/04/20 08:06 Lab Results 06/03/20 06/03/20 06/03/20 Range/Units 08:50 08:57 12:55 WBC 10.52 (4.8-10.8) K/uL RBC 4.33 (4.2-5.4) M/uL Hgb 12.3 (12.0-16.0) g/dL Hct 37.1 (37-47) % MCV 85.7 (80-100) fL MCH 28.4 (25-34) pg MCHC 33.2 (32-36) g/dL RDW Std Deviation 43.0 (36.4-46.3) fL RDW Coeff of Burak 13.7 (11.5-14.5) % Plt Count 277 (130-400) K/uL MPV 9.4 (7.4-10.4) fL Immature Gran % (Auto) 0.3 % Neut % (Auto) 87.9 % Lymph % (Auto) 9.9 % Webster % (Auto) 1.0 % Eos % (Auto) 0.6 % Baso % (Auto) 0.3 % Neut # (Auto) 9.26 H (1.4-6.5) K/uL Lymph # (Auto) 1.04 L (1.2-3.4) K/uL Webster # (Auto) 0.10 L (0.11-0.59) K/uL Eos # (Auto) 0.06 (0-0.5) K/uL Baso # (Auto) 0.03 (0-0.2) K/uL Immature Gran # (Auto) 0.03 H (0.00-0.02) K/uL Sodium (136-145) mmol/L Potassium (3.5-5.1) mmol/L Chloride (98-107) mmol/L Carbon Dioxide (21-32) mmol/L Anion Gap (3-11) BUN (7-18) mg/dl Creatinine (0.6-1.2) mg/dl Est Cr Clr Drug Dosing Est GFR ( Amer) Est GFR (Non-Af Amer) BUN/Creatinine Ratio (10-20) Glucose (70-99) mg/dl POC Glucose 184 H (70-99) mg/dl Estimat Average Glucose mg/dl Hemoglobin A1c (4.5-5.6) % Calcium (8.5-10.1) mg/dl Total Bilirubin (0.2-1) mg/dl AST (15-37) U/L ALT (12-78) U/L Alkaline Phosphatase (45-117) U/L Total Protein (6.4-8.2) gm/dl Albumin (3.4-5.0) gm/dl Globulin (2.5-4.0) gm/dl Albumin/Globulin Ratio (0.9-2) TSH (0.300-4.500) uIu/ml Urine Color Yellow Urine Appearance Clear (Clear) Urine pH 5.0 (4.5-7.5) Ur Specific [place] 1.009 (1.000-1.030) Urine Protein Negative (Negative) Urine Glucose (UA) Negative (Negative) Urine Ketones Negative (Negative) Urine Blood Negative (Negative) Urine Nitrite Negative (Negative) Urine Bilirubin Negative (Negative) Urine Urobilinogen Negative (Negative) Ur Leukocyte Esterase 1+ H (Negative) Urine WBC (Auto) 1-5 (0-5) /hpf Urine RBC (Auto) 0-4 (0-4) /hpf U Hyaline Cast (Auto) 1-5 (0-5) /lpf U Epithel Cells (Auto) 0-5 (0-5) /lpf Urine Bacteria (Auto) Negative (Negative) 06/03/20 06/03/20 Range/Units 12:55 12:55 WBC (4.8-10.8) K/uL RBC (4.2-5.4) M/uL Hgb (12.0-16.0) g/dL Hct (37-47) % MCV (80-100) fL MCH (25-34) pg MCHC (32-36) g/dL RDW Std Deviation (36.4-46.3) fL RDW Coeff of Burak (11.5-14.5) % Plt Count (130-400) K/uL MPV (7.4-10.4) fL Immature Gran % (Auto) % Neut % (Auto) % Lymph % (Auto) % Webster % (Auto) % Eos % (Auto) % Baso % (Auto) % Neut # (Auto) (1.4-6.5) K/uL Lymph # (Auto) (1.2-3.4) K/uL Webster # (Auto) (0.11-0.59) K/uL Eos # (Auto) (0-0.5) K/uL Baso # (Auto) (0-0.2) K/uL Immature Gran # (Auto) (0.00-0.02) K/uL Sodium 137 (136-145) mmol/L Potassium 4.7 (3.5-5.1) mmol/L Chloride 103 (98-107) mmol/L Carbon Dioxide 29 (21-32) mmol/L Anion Gap 5.0 (3-11) BUN 44 H (7-18) mg/dl Creatinine 1.12 (0.6-1.2) mg/dl Est Cr Clr Drug Dosing Not Reportable Est GFR ( Amer) 54.9 Est GFR (Non-Af Amer) 47.3 BUN/Creatinine Ratio 39.3 H (10-20) Glucose 236 H (70-99) mg/dl POC Glucose (70-99) mg/dl Estimat Average Glucose 177 mg/dl Hemoglobin A1c 7.8 H (4.5-5.6) % Calcium 9.3 (8.5-10.1) mg/dl Total Bilirubin 0.3 (0.2-1) mg/dl AST 16 (15-37) U/L ALT 21 (12-78) U/L Alkaline Phosphatase 81 (45-117) U/L Total Protein 7.3 (6.4-8.2) gm/dl Albumin 3.7 (3.4-5.0) gm/dl Globulin 3.6 (2.5-4.0) gm/dl Albumin/Globulin Ratio 1.0 (0.9-2) TSH 1.280 (0.300-4.500) uIu/ml Urine Color Urine Appearance (Clear) Urine pH (4.5-7.5) Ur Specific [place] (1.000-1.030) Urine Protein (Negative) Urine Glucose (UA) (Negative) Urine Ketones (Negative) Urine Blood (Negative) Urine Nitrite (Negative) Urine Bilirubin (Negative) Urine Urobilinogen (Negative) Ur Leukocyte Esterase (Negative) Urine WBC (Auto) (0-5) /hpf Urine RBC (Auto) (0-4) /hpf U Hyaline Cast (Auto) (0-5) /lpf U Epithel Cells (Auto) (0-5) /lpf Urine Bacteria (Auto) (Negative) Imaging Data Radiologist's Impression: [place], [place] [phone] XRay Report Patient: SHAUNA RAMSEY Date: 06/03/20 MR#: [id number]: [address] Acct ID:[id number]: Date: 1945[facility] Zip: [place] [address] Age: 75Location: ED Sex: F Room/Bed: Att Phy:Diagnosis: LEFT SIDED ABD PAIN INTO LEG Zainab Phy: Jazzmine Boland, DOService Date: 06/03/20 Fam Phy:Interpreting Phy: Mello Glasgow MD Admit Phy: Ordering Phy: Omar Madsen MD cc: ~ SINGLE VIEW PELVIS; 3 VIEWS LEFT FEMUR CLINICAL HISTORY: Left leg pain. No reported history of trauma. FINDINGS: An AP supine view of the pelvis with AP, frog-leg, and crosstable lateral views of the left femur are obtained. Correlation is made with pelvic CT dated 02/04/2016. The skeletal structures are osteopenic. There is no radiographic evidence of fracture involving the hips or bony pelvis. There is no radiographic evidence of left hip fracture. Moderate to advanced degenerative joint space narrowing and arthritic change is seen in the hips. Enthesophytes arise from the anterior superior iliac spines. There is degenerative sclerosis of the sacroiliac joints. The left knee joint is grossly maintained. The overlying soft tissues are normal in appearance. Phleboliths are observed in the pelvis. There is mild atherosclerotic calcification of the femoral arteries. IMPRESSION: 1. No acute bony abnormality is seen involving the hips or pelvis. 2. There is no radiographic evidence of left femoral fracture. 3. Osteopenia and degenerative change as above. Electronically signed by: Mello Glasgow M.D. 06/03/2020 10:07 AM Dictated: 06/03/20 1005 Transcribed: 06/03/20 1005 [place], [place] [phone] XRay Report Patient: SHAUNA RAMSEY Date: 06/03/20 MR#: [id number]: [address] Acct ID:[id number]: Date: 1945[facility] Zip: [place] [address] Age: 75Location: ED Sex: F Room/Bed: Att Phy:Diagnosis: LEFT SIDED ABD PAIN INTO LEG Zainab Phy: Jazzmine Boland, DOService Date: 06/03/20 Fam Phy:Interpreting Phy: Jordi Corona MD Admit Phy: Ordering Phy: Omar Madsen MD cc: ~ XR lumbar spine min 4V routine CLINICAL HISTORY: Back pain with left-sided radiculopathy COMPARISON STUDY: 02/06/2016 FINDINGS: The examination is limited from a positioning standpoint. A true lateral view was not obtained. No definite fractures are evident. There are multilevel degenerative changes. There are moderate osteoarthritic changes within the hip. IMPRESSION: 1. Technically limited examination 2. No fractures identified given the limitations of the study 3. Degenerative changes the lumbar spine 4. Moderate osteoarthritic changes within both hips ACT 112: Negative or not required by law. Electronically signed by: Jordi Corona M.D. 06/03/2020 10:22 AM Dictated: 06/03/20 1014 Transcribed: 06/03/20 1015 [facility], [place] [phone] XRay Report Patient: SHAUNA RAMSEY Date: 06/03/20 MR#: [id number]: [address] Acct ID:[id number]: Date: 1945[facility] Zip: [place] [address] Age: 75Location: ED Sex: F Room/Bed: Att Phy:Diagnosis: LEFT SIDED ABD PAIN INTO LEG Zainab Phy: Jazzmine Boland, DOService Date: 06/03/20 [facility] Phy:Interpreting Phy: Mello Glasgow MD Admit Phy: Ordering Phy: Omar Madsen MD cc: ~ SINGLE VIEW PELVIS; 3 VIEWS LEFT FEMUR CLINICAL HISTORY: Left leg pain. No reported history of trauma. FINDINGS: An AP supine view of the pelvis with AP, frog-leg, and crosstable lateral views of the left femur are obtained. Correlation is made with pelvic CT dated 02/04/2016. The skeletal structures are osteopenic. There is no radiographic evidence of fracture involving the hips or bony pelvis. There is no radiographic evidence of left hip fracture. Moderate to advanced degenerative joint space narrowing and arthritic change is seen in the hips. Enthesophytes arise from the anterior superior iliac spines. There is degenerative sclerosis of the sacroiliac joints. The left knee joint is grossly maintained. The overlying soft tissues are normal in appearance. Phleboliths are observed in the pelvis. There is mild atherosclerotic calcification of the femoral arteries. IMPRESSION: 1. No acute bony abnormality is seen involving the hips or pelvis. 2. There is no radiographic evidence of left femoral fracture. 3. Osteopenia and degenerative change as above. Electronically signed by: Mello Glasgow M.D. 06/03/2020 10:07 AM Dictated: 06/03/20 1005 Transcribed: 06/03/20 1005 [place], [place] [phone] Magnetic Resonance Report Patient: SHAUNA RAMSEY Date: 06/03/20 MR#: [id number]: 1414A [facility] Acct ID:[id number]: Date: [address] [place] [address] Zip: [place] [address] Age: 75Location: ED Sex: F Room/Bed: Att Phy:Diagnosis: LEFT SIDED ABD PAIN INTO LEG Zainab Phy: Jazzmine Boland, DOService Date: 06/03/20 [facility] Phy:Interpreting Phy: Jordi Corona MD Admit Phy: Ordering Phy: Omar Madsen MD cc: ~ MR lumbar spine wo con CLINICAL HISTORY: Low back pain with left leg radiculopathy. Inability to walk. TECHNIQUE: Sagittal and axial T1, T2 and STIR images were obtained. COMPARISON STUDY: X-ray study dated 06/03/2020, CT scan abdomen pelvis performed January 2016 OBSERVATIONS: The vertebral bodies and posterior elements appear intact. There is no abnormal bony signal present to suggest a marrow replacement process. Degenerative endplate signal changes are present involving the inferior L1 endplate. L1-2: There is a mild circumferential disc bulge. There is mild spinal canal narrowing. There is mild bilateral foraminal narrowing. L2-3: There is a mild circumferential disc bulge. There is mild spinal stenosis. There is no significant foraminal narrowing. L3-4: There is a mild circumferential disc bulge. There is no significant spinal stenosis. There is mild bilateral foraminal narrowing L4-5: No disc protrusions or extrusions. No evidence of spinal canal or neural foraminal compromise. L5-S1: No disc protrusions or extrusions. No evidence of spinal canal or neural foraminal compromise. There is lower lumbar facet joint arthropathy. 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 This remain similar in size to the prior 2016 CT scan. The conus medullaris and cauda equina appear normal. IMPRESSION: 1. Mild multilevel spondylytic changes with minor spinal canal narrowing at the L1-2, L2-3 levels. 2. No evidence of high-grade spinal stenosis 3. 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 ACT 112: Negative or not required by law. Electronically signed by: Jordi Corona M.D. 06/03/2020 12:30 PM Dictated: 06/03/20 1219 Transcribed: 06/03/20 1219 [place], [place] [phone] XRay Report Patient: SHAUNA RAMSEY Date: 06/03/20 MR#: [id number]: 1414A [facility] Acct ID:[id number]: [facility] Zip[facility] [place] [address] Age: 75Location: ED Sex: F Room/Bed: Att Phy:Diagnosis: LEFT SIDED ABD PAIN INTO LEG Zainab Phy: Jazzmine Boland, DOService Date: 06/03/20 [facility] Phy:Interpreting Phy: Lawrence Lundberg MD Admit Phy: Ordering Phy: Omar Madsen MD cc: ~ XR chest 1V portable CLINICAL HISTORY: weakness dyspnea COMPARISON STUDY: 12/01/2019 FINDINGS: The bones soft tissues and hemidiaphragms are normal. The cardiomediastinal silhouette is normal. The lungs are clear. The pulmonary vasculature is normal. IMPRESSION: Negative chest. ACT 112: Negative or not required by law. The above report was generated using voice recognition software. It may contain grammatical, syntax or spelling errors. Electronically signed by: Lawrence Lundberg M.D. 06/03/2020 1:10 PM Dictated: 06/03/20 1309 Transcribed: 06/03/20 1309 [facility] Narrative Patient was seen and evaluated as above in room A3. Review was performed of nursing notes and vital signs. I did review pertinent previous visits and patient history. After obtaining a thorough history and physical examination the above work up was performed. This 75-year-old female who presents emergency department complaining of lower back pain. Here in the emergency department the patient's pain was impossible to get under control and she took 4 mg of Dilaudid while she was here. I feel that she needs rehabilitation. X-rays do not show any acute process MRI of the lower back does not show an acute process. An order was placed for continuous cardiac monitoring. The monitor shows a rate of 66 with Normal SInus rhythm. I attest that I have personally reviewed the patient medication list. I attest that I have reviewed the patient's blood pressure and it was found to be GCS: 15 The patient was evaluated during the global COVID-19 pandemic, and that diagnosis was suspected/considered upon their initial presentation. Their evaluation, treatment and testing was consistent with current guidelines for patients who present with complaints or symptoms that may be related to COVID- 19. Impression & Plan Low back pain, Fall, Compression fracture Discharge Plan Visit Data *Final* Discharge Date/Time: 06/03/20 16:00 Chief Complaint: Hip Pain Stated Complaint: LEFT SIDED ABD PAIN INTO LEG ED Provider: Omar Madsen Discharge Problem: Low back pain, Fall, Compression fracture Patient Disposition: Admitted As Inpatient Discharge Instructions Interventions: ED Discharge Assessment Last Done: 06/03/20 16:00 Discharge Problem: Low back pain Qualifiers: Chronicity: acute Back pain laterality: midline Sciatica presence: without sciatica Qualified Code(s): M54.5 - Low back pain Fall Qualifiers: Encounter type: initial encounter Qualified Code(s): W19.XXXA - Unspecified fal l, initial encounter
--- NOTE | 2020-06-03 10:08 | XRay Report ---
SINGLE VIEW PELVIS; 3 VIEWS LEFT FEMUR CLINICAL HISTORY: Left leg pain. No reported history of trauma. FINDINGS: An AP supine view of the pelvis with AP, frog-leg, and crosstable lateral views of the left femur are obtained. Correlation is made with pelvic CT dated 02/04/2016. The skeletal structures are o steopenic. There is no radiographic evidence of fracture involving the hips or bony pelvis. There is no radiographic evidence of left hip fracture. Moderate to advanced degenerative joint space narrowin g and arthritic change is seen in the hips. Enthesophytes arise from the anterior superior iliac spin es. There is degenerative sclerosis of the sacroiliac joints. The left knee joint is grossly maintain ed. The overlying soft tissues are normal in appearance. Phleboliths are observed in the pelvis. Ther e is mild atherosclerotic calcification of the femoral arteries. IMPRESSION: 1. No acute bony abnormality is seen involving the hips or pelvis. 2. There is no radiographic evidence of left femoral fracture. 3. Osteopenia and degenerative change as above. Electronically signed by: Mello Glasgow M.D. 06/03/2020 10:07 AM
[2020-06-03] MEDS ORDERED: HYDROmorphone INJ 1 MG/ML SYRINGE IM STA ×2 (10:16→11:15)
--- NOTE | 2020-06-03 10:23 | XRay Report ---
XR lumbar spine min 4V routine CLINICAL HISTORY: Back pain with left-sided radiculopathy COMPARISON STUDY: 02/06/2016 FINDINGS: The examination is limited from a positioning standpoint. A true lateral view was not obtai huan. No definite fractures are evident. There are multilevel degenerative changes. There are moderate osteoarthritic changes within the hip. IMPRESSION: 1. Technically limited examination 2. No fractures identified given the limitations of the study 3. Degenerative changes the lumbar spine 4. Moderate osteoarthritic changes within both hips ACT 112: Negative or not required by law. Electronically signed by: Jordi Corona M.D. 06/03/2020 10:22 AM
--- NOTE | 2020-06-03 12:31 | Magnetic Resonance Report ---
MR lumbar spine wo con CLINICAL HISTORY: Low back pain with left leg radiculopathy. Inability to walk. TECHNIQUE: Sagittal and axial T1, T2 and STIR images were obtained. COMPARISON STUDY: X-ray study dated 06/03/2020, CT scan abdomen pelvis performed January 2016 OBSERVATIONS: The vertebral bodies and posterior elements appear intact. There is no abnormal bony signal present t o suggest a marrow replacement process. Degenerative endplate signal changes are present involving th e inferior L1 endplate. L1-2: There is a mild circumferential disc bulge. There is mild spinal canal narrowing. There is mild bilateral foraminal narrowing. L2-3: There is a mild circumferential disc bulge. There is mild spinal stenosis. There is no signific ant foraminal narrowing. L3-4: There is a mild circumferential disc bulge. There is no significant spinal stenosis. There is m ild bilateral foraminal narrowing L4-5: No disc protrusions or extrusions. No evidence of spinal canal or neural foraminal compromise. L5-S1: No disc protrusions or extrusions. No evidence of spinal canal or neural foraminal compromise. There is lower lumbar facet joint arthropathy. There is a circumscribed T1 hypointense T2 hyperintense 32 mm presacral mass, just to the right of mi dline. This remain similar in size to the prior 2016 CT scan. The conus medullaris and cauda equina appear normal. IMPRESSION: 1. Mild multilevel spondylytic changes with minor spinal canal narrowing at the L1-2, L2-3 levels. 2. No evidence of high-grade spinal stenosis 3. 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 ACT 112: Negative or not required by law. Electronically signed by: Jordi Corona M.D. 06/03/2020 12:30 PM
[2020-06-03 13:03] LABS: Basophils # (auto) 0.03 K/uL (0-0.2); Basophils % (auto) 0.3 %; Eosinophils # (auto) 0.06 K/uL (0-0.5); Eosinophils % (auto) 0.6 %; Hematocrit (blood only) 37.1 % (37-47); Hemoglobin 12.3 g/dL (12.0-16.0); Immature Granulocytes # (auto) 0.03 K/uL (0.00-0.02); Immature Granulocytes % (auto) 0.3 %; Lymphocytes # (auto) 1.04 K/uL (1.2-3.4); Lymphocytes % (auto) 9.9 %; Mean Corpuscular Hemoglobin 28.4 pg (25-34); Mean Corpuscular Hgb Conc 33.2 g/dL (32-36); Mean Corpuscular Volume 85.7 fL (80-100); Mean Platelet Volume 9.4 fL (7.4-10.4); Neutrophils # (auto) 9.26 K/uL (1.4-6.5); Neutrophils % (auto) 87.9 %; Platelet Count 277 K/uL (130-400); RDW Coefficient of Variation 13.7 % (11.5-14.5); Red Blood Count 4.33 M/uL (4.2-5.4); White Blood Count 10.52 K/uL (4.8-10.8)
[2020-06-03] MEDS ORDERED: ONDANSETRON INJ 2 MG/ML 2 ML VIAL IV PRN (13:09)
[2020-06-03] MEDS ORDERED: ALUMINUM/MAGNESIUM SUSP 30 ML UDC PO PRN (13:09)
--- NOTE | 2020-06-03 13:11 | XRay Report ---
XR chest 1V portable CLINICAL HISTORY: weakness dyspnea COMPARISON STUDY: 12/01/2019 FINDINGS: The bones soft tissues and hemidiaphragms are normal. The cardiomediastinal silhouette is n ormal. The lungs are clear. The pulmonary vasculature is normal. IMPRESSION: Negative chest. ACT 112: Negative or not required by law. The above report was generated using voice recognition software. It may contain grammatical, syntax or spelling errors. Electronically signed by: Lawrence Lundberg M.D. 06/03/2020 1:10 PM
[2020-06-03 13:16] LABS: Appearance Urine Clear (Clear); Bacteria Urine Automated Negative (Negative); Bilirubin Urine Negative (Negative); Blood Urine Negative (Negative); Color Urine Yellow; Epithelial Cell Urine Auto 0-5 /lpf (0-5); Glucose Urine UA Negative (Negative); Ketones Urine Negative (Negative); Leukocyte Esterase Urine 1+ (Negative); Nitrite Urine Negative (Negative); Protein Urine Negative (Negative); RBC Urine Automated 0-4 /hpf (0-4); Specific Gravity Urine 1.009 (1.000-1.030); Urobilinogen Urine Negative (Negative)
[2020-06-03 13:21] LABS: Alanine Aminotransferase 21 U/L (12-78); Albumin Level 3.7 gm/dl (3.4-5.0); Aspartate Aminotransferase 16 U/L (15-37); BUN Creatinine Ratio 39.3 (10-20); Blood Urea Nitrogen 44 mg/dl (7-18); Calcium 9.3 mg/dl (8.5-10.1); Carbon Dioxide 29 mmol/L (21-32); Chloride 103 mmol/L (98-107); Est GFR (African American) 54.9; Est GFR (Non-African American) 47.3; Glucose 236 mg/dl (70-99); Potassium 4.7 mmol/L (3.5-5.1); Sodium 137 mmol/L (136-145)
[2020-06-03 13:31] LABS: Alkaline Phosphatase 81 U/L (45-117); Bilirubin,Total 0.3 mg/dl (0.2-1); Globulin 3.6 gm/dl (2.5-4.0); Total Protein 7.3 gm/dl (6.4-8.2)
--- NOTE | 2020-06-03 13:31 | Electrocardiogram Report ---
Test Reason : Blood Pressure : / mmHG Vent. Rate : 069 BPM Atrial Rate : 069 BPM P-R Int : 212 ms QRS Dur : 112 ms QT Int : 416 ms P-R-T Axes : 047 -66 -11 degrees QTc Int : 445 ms Sinus rhythm with 1st degree A-V block Left anterior fascicular block Possible Lateral infarct , age undetermined Abnormal ECG When compared with ECG of 01-DEC-2019 14:32, T wave inversion now evident in Inferior leads Nonspecific T wave abnormality, worse in Lateral leads Confirmed by Guillermo Calles ([id number]) on 06/03/2020 1:31:46 PM Referred By: REFERRED SELF Confirmed By:Teo Calles
--- NOTE | 2020-06-03 14:08 | History & Physical Report ---
Date of Service June 03, 2020 Assessment & Plan (1) Low back pain: (2) Left hip pain: This is a 75-year-old female with significant PMH of CAD, chronic diastolic CHF, T2DM, HTN, HLD, CKD stage III, chronic narcotic use, DDD, hypothyroidism who presents to ED secondary to intractable left hip and low back pain x2 weeks. In ED patient made hemodynamically stable. Lab work generally unremarkable except for mild elevation BUN 44, creatinine 1.12, glucose 236. Which revealed degenerative change of lumbar spine, moderate osteoarthritic changes within both hips, mild multilevel spondylitic changes with mild's spinal canal narrowing at L1-L2 and L2-L3 levels. In ED patient was administered 10 mg IV dexamethasone, lidocaine patch and multiple rounds of IV Dilaudid. She is saturating well on room air but does have slight confusion. admit to med tele consult Dr. Carreno Pain control PT/OT pt may need rehab (3) CAD (coronary artery disease): Patient denies chest pain or shortness of breath Continue ASA, statin, Imdur, metoprolol, lisinopril (4) Chronic diastolic CHF (congestive heart failure): euvolemic, per pt baseline weight ~ 200lb continue lisinopril, metoprolol, lasix, imdur electrolytes acceptable daily weights, strict I and O baseline cr 1.5, today 1.2 with mild elevation in BUN continue lasix for now, monitor renal fxn (5) Nonspecific ST-T wave electrocardiographic changes: pt with inferior t wave inversions, new from prior ecg 11/2019 pt denies CP/SOB appears stable and euvolemic from cardiac standpoint repeat ecg, in unchanged resting echo in am. (6) HTN (hypertension): blood pressure stable continue metoprolol, lisinopril, Imdur (7) DM type 2 (diabetes mellitus, type 2): a1c 7.8 on Levemir/novolog, bydureon as outpt consult glycemic pharmacy, appreciate their management (8) Hypothyroidism: continue levothyroxine (9) Chronic pain: pt on chronic percocet, lyrica confirmed via pdmd (10) CKD (chronic kidney disease) stage 3, GFR 30-59 ml/min: baseline cr 1.5 bun/cr today 44 and 1.2 avoid nephrotoxic agents, monitor bmp (11) HLD (hyperlipidemia): continue statin (12) DVT prophylaxis: Lovenox 30 mg daily Disposition: Admit to medical telemetry due to EKG change, consult case management patient may need rehab Follow-up: PCP Dr. Boland upon discharge Patient was seen and examined in collaboration with Dr. Fernandez, please see addendum History of Present Illness Chief Complaint: Intractable hip/back pain x 2 weeks. Primary Care Provider: Jazzmine Boland, DO This is a 75-year-old female with significant PMH of CAD, chronic diastolic CHF, T2DM, HTN, HLD, CKD stage III, chronic narcotic use, DDD, hypothyroidism who presents to ED secondary to intractable left hip and low back pain x2 weeks. Of significance history slightly unreliable due to significant narcotic administration in ED due to intractable pain. She admits to having intractable pain that began approximately 2 weeks ago. Pain is mostly in the left groin region but does radiate down posterior aspect of leg into heel. She also admits to pain wrapping around to her low back. Pain is constant in nature but waxes and wanes in severity, rated 9 out of 10, described as a sharp shooting pain. She has been taking her prescribed Percocet, "but I have been taking more than I should because the pain has been unbearable." Also been taking ibuprofen without significant relief. Pain is inhibiting patient's ability to walk and do ADLs. Of significance patient was seen and evaluated by Dr. riley and did undergo SI injection on 05/30/2020. She feels pain has been more since. She does admit to having prior neck surgery done by Dr. Carreno and unfortunately has suffered from chronic pain. She denies any recent illness and is otherwise been in a good state of health. She does have chronic diastolic CHF and her weights have been stable around 200. She denies any recent fever, chills, sweats, lightheadedness, dizziness, syncope, chest pain, shortness breath, cough, nausea, vomiting, diarrhea, abdominal pain, change in bowel or urinary habits. She admits to taking stool softener secondary to narcotic use. In ED patient made hemodynamically stable. Lab work generally unremarkable except for mild elevation BUN 44, creatinine 1.12, glucose 236. Which revealed degenerative change of lumbar spine, moderate osteoarthritic changes within both hips, mild multilevel spondylitic changes with mild's spinal canal narrowing at L1-L2 and L2-L3 levels. In ED patient was administered 10 mg IV dexamethasone, lidocaine patch and multiple rounds of IV Dilaudid. She is saturating well on room air but does have slight confusion. Allergies Allergy/AdvReac Type Severity Reaction Status Date / Time carvedilol AdvReac Mild HEART Verified 06/03/20 09:16 RACING Home Medications Home Medications Medication Instructions Recorded Confirmed Type OneTouch Verio test strips #120 ea NS 06/12/19 06/03/20 Rx Bydureon 2 mg SUBCUT WK 12/01/19 06/03/20 History Levemir U-100 Insulin 30 unit SUBCUT BID 12/01/19 06/03/20 History albuterol sulfate 2 puff INHALATION Q4H PRN 12/01/19 06/03/20 History aspirin 81 mg PO QAM 12/01/19 06/03/20 History fluticasone propionate 1 spray INTRANASAL DAILY PRN 12/01/19 06/03/20 History furosemide 80 mg PO QAM 12/01/19 06/03/20 History insulin aspart U-100 [Novolog See Rx Instructions .ROUTE .COMPLEX 12/01/19 06/03/20 History U-100 Insulin aspart] isosorbide mononitrate 30 mg PO QAM 12/01/19 06/03/20 History levothyroxine 100 mcg PO QAM 12/01/19 06/03/20 History lisinopril 20 mg PO QAM 12/01/19 06/03/20 History loratadine 10 mg PO QAM 12/01/19 06/03/20 History metoprolol tartrate 25 mg PO QPM 12/01/19 06/03/20 History metoprolol tartrate 50 mg PO QAM 12/01/19 06/03/20 History montelukast 10 mg PO HS 12/01/19 06/03/20 History oxycodone-acetaminophen 1 tab PO QID PRN 12/01/19 06/03/20 History pantoprazole 40 mg PO QAM 12/01/19 06/03/20 History polyethylene glycol 3350 17 g PO DAILY PRN 12/01/19 06/03/20 History pregabalin 200 mg PO TID 12/01/19 06/03/20 History rosuvastatin 20 mg PO HS 12/01/19 06/03/20 History Past Med/Surg History Medical History (Updated 06/03/20 @ 14:32 by Nella Coe PA-C) CAD (coronary artery disease) (Chronic) "cath 2012 - mild, non obstructive disease" Chronic diastolic CHF (congestive heart failure) (Chronic) "echo 2007 - EF 55%, diastolic dysfunction" Chronic pain CKD (chronic kidney disease) stage 3, GFR 30-59 ml/min DM type 2 (diabetes mellitus, type 2) (Chronic) HLD (hyperlipidemia) HTN (hypertension) (Chronic) Hypothyroidism (Chronic) [place]ROE (obstructive sleep apnea) (Chronic) PUD (peptic ulcer disease) (Chronic) Surgical History (Updated 06/03/20 @ 14:13 by Nella Coe PA-C) H/O cataract extraction H/O excision of lamina of cervical vertebra for decompression of spinal cord (Chronic) History of breast biopsy History of colonoscopy with polypectomy History of foot surgery History of hysterectomy (Chronic) History of tonsillectomy and adenoidectomy (Chronic) Family History Other Heart disease Stroke Social History Smoking Status: Never smoker Second Hand Exposure: No; Hx Alcohol Use: Yes Hx Substance Use: No Preferred Language: Somali Communication Ability: Effective Assault Amphibious Vehicle Officer Required: No Beliefs That Will Affect Care: None Current Living Situation: Alone current occupational status: retired Feels Safe at Home: Yes Review of Systems Review of Systems: All systems reviewed & are unremarkable except as noted in HPI & below Physical Exam Physical Exam: Constitutional: WD/WN, female, vitals as above, NAD, sitting up in bed, pleasant, conversing easily Head: Normocephalic, Atraumatic Eyes: PERRL, conjunctivae normal, anicteric sclerae ENMT: external ear and nose normal, oropharynx normal Neck: trachea midline, no thyromegaly normal visual inspection Respiratory: normal respiratory effort, lungs clear to auscultation, no wheeze, rales, rhonchi. Normal insp/exp effort, no accessory muscle use Cardiovascular: RRR, no murmur, no edema Vessels: no JVD or carotid bruit Chest: normal inspection of chest Abdomen: Truncal obesity, normal bowel sounds, soft, nontender, no hepatosplenomegaly Musculoskeletal: no cyanosis or clubbing, active range of motion to extremities x4. Pain to palpation to left trochanteric bursa region, pain with internal and external rotation of hip, limited range of motion to left leg due to pain. Skin: no rashes, warm and dry normal turgor Neurologic: PERRL, EOMI, accommodation nl, no face palsy, no dysarthria CN's II-XI intact bilaterally and moves all extremities Psychiatric: A+Ox3 but mild confusion in setting of narcotics, euthymic affect Lymphatic: no cervical or axillary lymphadenopathy : deferred Results & Data Results & Data ([facility]) Vital Signs (Past 12 Hours) Vital Signs Temp Pulse Pulse Resp BP BP Pulse Ox 06/03/20 13:22 71 20 139/79 95 06/03/20 12:31 68 22 154/96 H 94 06/03/20 11:08 66 20 142/64 H 94 06/03/20 09:55 68 20 153/70 H 99 06/03/20 09:12 94 06/03/20 08:32 37.0 C 68 20 167/75 H 98 Laboratory Results Short CBC 06/03/20 Range/Units 12:55 WBC 10.52 (4.8-10.8) K/uL Hgb 12.3 (12.0-16.0) g/dL Hct 37.1 (37-47) % Plt Count 277 (130-400) K/uL BMP 06/03/20 12:55 Sodium 137 Potassium 4.7 Chloride 103 Carbon Dioxide 29 BUN 44 H Creatinine 1.12 Glucose 236 H Calcium 9.3 Liver Function 06/03/20 Range/Units 12:55 Total Bilirubin 0.3 (0.2-1) mg/dl AST 16 (15-37) U/L ALT 21 (12-78) U/L Alkaline Phosphatase 81 (45-117) U/L Albumin 3.7 (3.4-5.0) gm/dl Urine 06/03/20 Range/Units 08:50 Urine Color Yellow Urine Appearance Clear (Clear) Urine pH 5.0 (4.5-7.5) Ur Specific [place] 1.009 (1.000-1.030) Urine Protein Negative (Negative) Urine Glucose (UA) Negative (Negative) Diagnostic Findings Femur Xray: IMPRESSION: 1. No acute bony abnormality is seen involving the hips or pelvis. 2. There is no radiographic evidence of left femoral fracture. 3. Osteopenia and degenerative change as above. Lumbar Spine Xray: IMPRESSION: 1. Technically limited examination 2. No fractures identified given the limitations of the study 3. Degenerative changes the lumbar spine 4. Moderate osteoarthritic changes within both hips Pelvis Xray: IMPRESSION: 1. No acute bony abnormality is seen involving the hips or pelvis. 2. There is no radiographic evidence of left femoral fracture. 3. Osteopenia and degenerative change as above. Lumbar Spine MRI: IMPRESSION: 1. Mild multilevel spondylytic changes with minor spinal canal narrowing at the L1-2, L2-3 levels. 2. No evidence of high-grade spinal stenosis 3. 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 CXR: IMPRESSION: Negative chest. Medications Administered Discontinued Medications Dexamethasone (Decadron) 10 mg IM NOW ONE Stop: 06/03/20 08:45 Last Admin: 06/03/20 08:52 Dose: 10 mg Documented by: [id number] Hydromorphone HCl (Dilaudid) 2 mg IM NOW STA Stop: 06/03/20 08:45 Last Admin: 06/03/20 08:51 Dose: 2 mg Documented by: [id number] Hydromorphone HCl (Dilaudid) 1 mg IM NOW STA Stop: 06/03/20 10:17 Last Admin: 06/03/20 10:21 Dose: 1 mg Documented by: [id number] Hydromorphone HCl (Dilaudid) 1 mg IM NOW STA Stop: 06/03/20 11:16 Last Admin: 06/03/20 11:20 Dose: 1 mg Documented by: [id number] Lidocaine (Lidoderm 5%) 1 patch TD NOW STA Stop: 06/03/20 08:45 Last Admin: 06/03/20 08:51 Dose: 1 patch Documented by: [id number] Ondansetron HCl (Zofran Odt) 4 mg PO NOW STA Stop: 06/03/20 08:47 Last Admin: 06/03/20 08:51 Dose: 4 mg Documented by: [id number] ECG Rate (beats per minute): 69 Findings: + LAFB Additional Comments: 11/2019 new inferior t wave inversions Code Status & VTE Plan Code Status Full Code VTE Prophylaxis Plan VTE Prophylaxis will be ordered: Yes Supervising Physician Co-Signing Physician Notes Patient seen and examined, care coordinated with Nella Gutierrez PA-C Lab and images reviewed 75-year-old female with chronic low back pain presents with worsening of back pain, radiation to left lower extremity, limiting daily activity, unable to ambulate MRI of lumbar spine shows mild DJD with lumbar stenosis No bowel or bladder incontinence Vitals: As per EMR Physical exam: Brief General: No sign of distress, comfortable HEENT: Unremarkable Heart: Regular S1-S2 no lower extremity edema no JVD Lungs: Clear to auscultate no wheeze or rales Abdomen: Soft nontender Extremity: No lower extremity weakness, no rash or deformity, point tenderness on low back/lumbar area Neuro: No focal neurological deficit alert awake oriented x3 MRI of lumbar spine as documented above Assessment and plan: Intractable low back pain: Has been chronic low back pain for years, follows with pain management: Got recent steroid injection on lumbar spine, did not help with her symptoms, which has been applied to get worse Patient will be admitted continue pain control, PT OT evaluation Case management consulted, patient may require skilled rehab Spinal orthopedics consulted patient is known to Dr. Carreno Please refer to further documentation by Nella Gutierrez PA-C for discussion of other medical issues Brenda Fernandez MD
[2020-06-03 14:13] LABS: Estimated Average Glucose 177 mg/dl; Hemoglobin A1C 7.8 % (4.5-5.6)
[2020-06-03] MEDS ORDERED: PHARMACY GLYCEMIC MGMT CONSULT STA (14:43)
[2020-06-03] MEDS: ACETAMINOPHEN 325 MG TAB PO PRN ×2 (16:10→23:13)
[2020-06-03] MEDS ORDERED: GLUCOSE 40% GEL 15 GM TUBE PO PRN (16:37)
[2020-06-03] MEDS ORDERED: CARBOHYDRATES FOR HYPOGLYCEMIA PO PRN (16:37)
[2020-06-03] MEDS ORDERED: GLUCAGON FOR INJ 1 MG VIAL SQ PRN (16:37)
[2020-06-03] MEDS ORDERED: GLUCOSE 10 TABS/TUBE PO PRN (16:37)
[2020-06-03] MEDS ORDERED: DEXTROSE 50% 50 ML SYRINGE IV PRN (16:37)
[2020-06-03] MEDS ORDERED: PHARMACY GLYCEMIC MGMT CONSULT PRN (16:57)
[2020-06-03] MEDS ORDERED: LIDOCAINE 5% 1 PATCH TD SCH ×2 (17:00)
[2020-06-03] MEDS ORDERED: FLUTICASONE PROPIONATE NA SPR 16 GM BTL NAE PRN (17:00)
[2020-06-03] MEDS ORDERED: POLYETHYLENE (MIRALAX) 17 GM PACK PO PRN (17:00)
[2020-06-03] MEDS: INSULIN ASPART 100 UNITS/ML 3 ML PEN SC SCH ×2 (17:32→20:14)
[2020-06-03] MEDS: OXYCODONE/ACETAMINOPHEN 10-325 TAB PO PRN ×2 (17:38→22:41)
--- NOTE | 2020-06-03 19:50 | Pharmacy Report ---
Glycemic Control Consultation - Date of Service June 03, 2020 - Scope Scope: Glycemic Pharmacist consulted for glycemic control and to write orders per [facility] inpatient glycemic control protocol. - Objective Weight: 89.6 kg Accuchecks BSG (last 24hrs): 06/03/20 06/03/20 06/03/20 08:57 12:55 16:46 Glucose 236 H POC Glucose 184 H 281 H Laboratory Data (last 24hrs): 06/03/20 12:55 Potassium 4.7 Carbon Dioxide 29 Anion Gap 5.0 Creatinine 1.12 Est Cr Clr Drug Dosing Not Reportable HbA1c: Hemoglobin A1c 7.8 % (4.5-5.6) H 06/03/20 12:55 - Recent Pertinent Medications Outpatient Anti-diabetic Regimen: * Bydureon 2 mg SC every Saturday + Levermir 30 units SC BID + Novolog 21 units QDB/21 units QDL/27 units QDD * A1c = 7.8% (06/03/2020) Risk Factors for Insulin Resistance: * Steroids: * Dexamethasone 10 mg IV x 1 this AM * Diet: * T2DM - Assessment & Plan Assessment & Plan: ASSESSMENT: * 75 yo F admitted secondary to Intractable Hip/Back Pain. Pharmacy is consulted for Glycemic Management. Patient is known to our service. * She received a one time dose of IV dexamethasone in the ED. No further steroids are ordered at this time. * Will utilize previous admission data in order to design regimen for this stay. * Expect BSGs to decrease as Dexamethasone dose wears off. PLAN FOR INPATIENT GLYCEMIC CONTROL: * Basal insulin * Levemir 30 units SQ BID * Bolus insulin * NovoLog per scale ACHS or Q6hrs while NPO * Goal Range: Low 110 mg/dL - High 140 mg/dL * Correction Factor: 15 mg/dL/unit * Nutritional / Prandial insulin per carb ratio of 1 unit per 4 grams CHO consumed * Please note that the plan above was derived based on current level of insulin resistance and hospital stress. These recommendations are appropriate for inpatient admission only. Plan of care upon discharge will need to be reassessed to avoid potential outpatient hypo/hyperglycemia. Thank you.
[2020-06-03] MEDS: INSULIN DETEMIR FLEXPEN/FLEX TOUCH 100 UNITS/ML 3ML SC SCH (20:05)
[2020-06-03] MEDS: ENOXAPARIN INJ 30 MG/0.3 ML SYR SQ SCH (20:10)
[2020-06-03] MEDS: ROSUVASTATIN CALCIUM 20 MG TAB PO SCH (20:10)
[2020-06-03] MEDS: PREGABALIN 100 MG CAP PO SCH (20:10)
[2020-06-03] MEDS: METOPROLOL TARTRATE 25 MG TAB PO SCH (20:11)
[2020-06-03] MEDS: MONTELUKAST SODIUM 10 MG TABLET PO SCH (20:16)
[2020-06-03] MEDS: DOCUSATE SODIUM/SENNA 50/8.6MG TAB PO SCH (20:16)
[2020-06-03] MEDS: HYDROmorphone INJ 1 MG/ML SYRINGE IV PRN (20:49)
[2020-06-03] MEDS ORDERED: INSULIN DETEMIR FLEXPEN/FLEX TOUCH 100 UNITS/ML 3ML SC SCH (21:00)
[2020-06-04] MEDS: INSULIN ASPART 100 UNITS/ML 3 ML PEN SC SCH ×6 (00:13→20:20)
[2020-06-04] MEDS: HYDROmorphone INJ 1 MG/ML SYRINGE IV PRN ×4 (02:59→20:55)
[2020-06-04] MEDS: ACETAMINOPHEN 325 MG TAB PO PRN ×3 (03:58→16:33)
[2020-06-04] MEDS: LEVOTHYROXINE SODIUM 100 MCG TABLET PO SCH (06:04)
[2020-06-04] MEDS: OXYCODONE/ACETAMINOPHEN 10-325 TAB PO PRN ×4 (07:28→23:51)
[2020-06-04] MEDS: lisinopriL 20 MG TAB PO SCH (08:44)
[2020-06-04] MEDS: LORATADINE 10 MG TAB PO SCH (08:44)
[2020-06-04] MEDS: DOCUSATE SODIUM/SENNA 50/8.6MG TAB PO SCH ×2 (08:44→22:18)
[2020-06-04] MEDS: METOPROLOL TARTRATE 50 MG TAB PO SCH ×2 (08:44→21:24)
[2020-06-04] MEDS: ASPIRIN 81 MG ECTAB PO SCH (08:44)
[2020-06-04] MEDS: ISOSORBIDE MONO EXTENDED REL 30 MG TABCR PO SCH (08:44)
[2020-06-04] MEDS: PANTOprazole 40 MG TAB PO SCH (08:44)
[2020-06-04] MEDS: FUROSEMIDE 80 MG TAB PO SCH (08:44)
[2020-06-04] MEDS: INSULIN DETEMIR FLEXPEN/FLEX TOUCH 100 UNITS/ML 3ML SC SCH ×2 (08:46→22:16)
[2020-06-04] MEDS: LIDOCAINE 5% 1 PATCH TD SCH (08:47)
[2020-06-04 08:53] LABS: BUN Creatinine Ratio 37.8 (10-20); Calcium 9.2 mg/dl (8.5-10.1); Creatinine Clr Calc Pharmacy 39.4 ml/min; Est GFR (African American) 51.5; Est GFR (Non-African American) 44.5; Potassium 3.9 mmol/L (3.5-5.1)
[2020-06-04] MEDS: PREGABALIN 100 MG CAP PO SCH ×3 (09:19→21:24)
--- NOTE | 2020-06-04 09:34 | Pharmacy Report ---
Pharmacy Glycemic Short Note 2 - Date of Service June 04, 2020 - Glycemic Short BSG Results (Last 24 hours): 06/03/20 06/03/20 06/03/20 12:55 16:46 20:03 Glucose 236 H POC Glucose 281 H 267 H 06/04/20 06/04/20 06/04/20 00:09 03:40 07:38 Glucose POC Glucose 119 H 113 H 141 H 06/04/20 08:06 Glucose 143 H POC Glucose OUTPATIENT ANTIDIABETIC REGIMEN: * Bydureon 2mg SQ Q Mondays * Levemir 30 units SQ BID * NovoLog / units with meals respectively * A1c = 7.8% on 06/03/20 ASSESSMENT: 06/04/20: * Pt hyperglycemic on admission - worsened after dose of IV Dexamethasone. * Hyperglycemia resolving with RTC NovoLog and stressed basal insulin dosing * Hyperglycemic effects of DXM should start wearing off today - will resume insulin regimen that worked well for patient during 11/2019 admission and titrate based on BSG trends. 06/03/20: * 75 yo F admitted secondary to Intractable Hip/Back Pain. Pharmacy is consulted for Glycemic Management. Patient is known to our service. * She received a one time dose of IV dexamethasone in the ED. No further steroids are ordered at this time. * Will utilize previous admission data in order to design regimen for this stay. * Expect BSGs to decrease as Dexamethasone dose wears off. PLAN FOR INPATIENT GLYCEMIC CONTROL: * Basal insulin * Levemir 30-35 units SQ BID (35 units for BSG >180) * Bolus insulin * NovoLog per scale ACHS or Q6hrs while NPO * Goal Range: Low 110 mg/dL - High 140 mg/dL * Correction Factor: 15 mg/dL/unit * Nutritional / Prandial insulin per carb ratio of 1 unit per 4 grams CHO consumed PLAN FOR DISCHARGE: * A1c is in goal range based on age/comorbidities. * No changes needed to outpatient regimen.
--- NOTE | 2020-06-04 15:07 | Hospitalist Progress Note ---
Date of Service June 04, 2020 Assessment & Plan (1) Low back pain: Has lumbar radiculopathy as evidenced by MRI of the lumbar spine No bladder and/or bowel problems No significant weakness of the left lower extremity Appreciate Ortho input and recommendation (2) Left hip pain: This is a 75-year-old female with significant PMH of CAD, chronic diastolic CHF, T2DM, HTN, HLD, CKD stage III, chronic narcotic use, DDD, hypothyroidism who presents to ED secondary to intractable left hip and low back pain x2 weeks. Moderate left hip pain secondary to osteoarthritis Referred pain in inner thigh of the left side could be secondary to left hip osteoarthritis (3) CAD (coronary artery disease): Patient denies chest pain or shortness of breath Continue ASA, statin, Imdur, metoprolol, lisinopril (4) Chronic diastolic CHF (congestive heart failure): euvolemic, per pt baseline weight ~ 200lb continue lisinopril, metoprolol, lasix, imdur electrolytes acceptable daily weights, strict I and O baseline cr 1.5, today 1.2 with mild elevation in BUN continue lasix for now, monitor renal fxn (5) Nonspecific ST-T wave electrocardiographic changes: pt with inferior t wave inversions, new from prior ecg 11/2019 pt denies CP/SOB appears stable and euvolemic from cardiac standpoint repeat ecg, in unchanged resting echo in am. (6) HTN (hypertension): blood pressure stable continue metoprolol, lisinopril, Imdur (7) DM type 2 (diabetes mellitus, type 2): a1c 7.8 on Levemir/novolog, bydureon as outpt consult glycemic pharmacy, appreciate their management (8) Hypothyroidism: continue levothyroxine (9) Chronic pain: pt on chronic percocet, lyrica confirmed via pdmd (10) CKD (chronic kidney disease) stage 3, GFR 30-59 ml/min: baseline cr 1.5 bun/cr today 44 and 1.2 avoid nephrotoxic agents, monitor bmp-creatinine has been normalized (11) HLD (hyperlipidemia): continue statin (12) DVT prophylaxis: Lovenox 30 mg daily Disposition: Admit to medical telemetry due to EKG change, consult case management patient may need rehab Follow-up: PCP Dr. Boland upon discharge Admission and Anticipated Discharge Date Admission Date: June 03, 2020 Subjective The patient was seen and examined in medical floor She has been feeling much better since admission following administration of pain medications Her pain is mostly at the lower back radiates to the left lower extremity and inner thigh Has had prior steroid injections for the pain at the back Review of Systems Review of Systems: All systems reviewed and are unremarkable except as noted below Musculoskeletal: + back pain (With radiation to the left lower extremity and inner thigh), + radicular pain (Inner thigh) and + joint pain (Minimal left hip pain with movement but no significant osteoarthritis on imaging studies) Physical Exam Physical Exam: Lying in bed comfortably Constitutional: well developed, well nourished and + obese; no acute distress and not ill appearing Eyes: PERRL, conjunctivae normal, anicteric sclerae ENMT: external ear and nose normal, oropharynx normal Neck: trachea midline, no thyromegaly Respiratory: normal respiratory effort; no respiratory distress Auscultation: lungs clear to auscultation bilaterally Cardiovascular: Rate/Rhythm: regular rate and regular rhythm Heart Sounds: no murmur Gastrointestinal (Abdomen): Inspection/Auscultation: abdomen normal to inspection; abdomen not distended Percussion/Palpation: abdomen soft Musculoskeletal: Lower lumbar spinal tenderness with straight leg sign positive on the left Neurologic: moves all extremities and + focal motor deficit Weak left lower extremity Results & Data Results & Data ([facility]) Vital Signs (Past 12 Hours) Vital Signs Temp Pulse Pulse Resp BP Pulse Ox 06/04/20 11:20 36.5 C 64 16 119/65 96 06/04/20 07:30 66 06/04/20 07:18 36.3 C L 76 18 132/66 97 06/04/20 03:43 36.9 C 71 20 132/57 L 96 Laboratory Results [facility] 06/04/20 08:06 Sodium 138 Potassium 3.9 D Chloride 102 Carbon Dioxide 32 BUN 45 H Creatinine 1.18 Glucose 143 H Calcium 9.2 Medications Administered Current Inpatient Medications Acetaminophen (Tylenol) 650 mg PO Q4H PRN PRN Reason: pain/fever Stop: 07/03/20 13:08 Last Admin: 06/04/20 08:48 Dose: 650 mg Documented by: Al Hydrox/Mg Hydrox/Simethicone (Maalox) 30 ml PO Q6H PRN PRN Reason: Dyspepsia Stop: 07/03/20 13:08 [facility]ir[facility]) [facility]: 07/04/20 08:59 Last Admin: 06/04/20 08:44 Dose: 81 mg Documented by: Dextrose (Dextrose 50%) 25 - 50 ml IV UD PRN; Protocol PRN Reason: Hypoglycemia Protocol Stop: 07/03/20 16:36 Enoxaparin Sodium (Lovenox) 30 mg SQ Q24H [facility] Stop: 07/03/20 20:59 Last Admin: 06/03/20 20:10 Dose: 30 mg Documented by: Fluticasone Propionate (Flonase) 1 sprays BLAKE DAILY PRN PRN Reason: Allergy Symptoms Stop: 07/03/20 16:59 Furosemide (Lasix) 80 mg PO [facility] Stop: 07/04/20 08:59 Last Admin: 06/04/20 08:44 Dose: 80 mg Documented by: Glucagon (Glucagen) 1 mg SQ UD PRN; Protocol PRN Reason: Hypoglycemia Protocol Stop: 07/03/20 16:36 Glucose (Dex4 Glucose) 4 - 8 tabs PO UD PRN; Protocol PRN Reason: Hypoglycemia Protocol Stop: 07/03/20 16:36 Glucose (Glucose 40%) 15 - 30 gm PO UD PRN; Protocol PRN Reason: Hypoglycemia Protocol Stop: 07/03/20 16:36 Hydromorphone HCl (Dilaudid) 1 mg IV Q6 PRN PRN Reason: Pain Stop: 06/17/20 16:59 Last Admin: 06/04/20 09:19 Dose: 1 mg Documented by: Insulin Aspart (Novolog Flexpen) 0 units SC [facility]; Protocol Stop: 07/03/20 17:04 Last Admin: 06/04/20 12:00 Dose: 17 units Documented by: Insulin Detemir (Levemir Flextouch) 0 units SC BID [facility]; Protocol Stop: 07/03/20 19:04 Last Admin: 06/04/20 08:46 Dose: 30 units Documented by: Isosorbide Mononitrate (Imdur Extended Rel) 30 mg PO [facility] Stop: 07/04/20 08:59 Last Admin: 06/04/20 08:44 Dose: 30 mg Documented by: [facility]: 07/04/20 06:29 Last Admin: 06/04/20 06:04 Dose: 100 mcg Documented by: Lidocaine (Lidoderm 5%) 1 patch TD [facility] Stop: 07/04/20 08:59 Last Admin: 06/04/20 08:47 Dose: 1 patch Documented by: Lisinopril (Zestril) 20 mg PO [facility] Stop: 07/04/20 08:59 Last Admin: 06/04/20 08:44 Dose: 20 mg Documented by: Loratadine (Claritin) 10 mg PO [facility] Stop: 07/04/20 08:59 Last Admin: 06/04/20 08:44 Dose: 10 mg Documented by: Magnesium Hydroxide (Milk Of Magnesia) 30 ml PO Q6H PRN PRN Reason: Constipation Stop: 07/03/20 13:08 Metoprolol Tartrate (Lopressor) 50 mg PO [facility] Stop: 07/04/20 08:59 Last Admin: 06/04/20 08:44 Dose: 50 mg Documented by: Metoprolol Tartrate (Lopressor) 25 mg PO QPM [facility] Stop: 07/03/20 20:59 Last Admin: 06/03/20 20:11 Dose: 25 mg Documented by: Miscellaneous (Carbohydrates For Hypoglycemia) 15 - 30 gm PO UD PRN PRN Reason: Hypoglycemia Protocol Stop: 07/03/20 16:36 Miscellaneous (Remove Lidoderm Patch) 1 ea N/A DAILY@2100 [facility] Stop: 07/03/20 20:59 Last Admin: 06/03/20 20:15 Dose: Not Given Documented by: Miscellaneous Information (Consult Glycemic Management Pharmacy) 1 ea N/A UD PRN; Protocol PRN Reason: Consult Stop: 07/03/20 16:56 Montelukast Sodium (Singulair) 10 mg PO HS [facility] Stop: 07/03/20 20:59 Last Admin: 06/03/20 20:16 Dose: 10 mg Documented by: Ondansetron HCl (Zofran) 4 mg IV Q6H PRN PRN Reason: Nausea Stop: 07/03/20 13:08 Oxycodone/Acetaminophen (Percocet 10/325mg) 1 tab PO QID PRN PRN Reason: Pain Stop: 06/17/20 16:59 Last Admin: 06/04/20 11:58 Dose: 1 tab Documented by: Pantoprazole Sodium (Protonix) 40 mg PO QAM [facility] Stop: 07/04/20 08:59 Last Admin: 06/04/20 08:44 Dose: 40 mg Documented by: Polyethylene Glycol (Miralax Powder Packet) 17 gm PO DAILY PRN PRN Reason: Constipation Stop: 07/03/20 13:08 Polyethylene Glycol (Miralax Powder Packet) 17 gm PO DAILY PRN PRN Reason: Constipation Stop: 07/03/20 16:59 Pregabalin (Lyrica) 100 mg PO TID [facility] Stop: 07/03/20 20:59 Last Admin: 06/04/20 14:37 Dose: 100 mg Documented by: Rosuvastatin Calcium (Crestor) 20 mg PO HS [facility] Stop: 07/03/20 20:59 Last Admin: 06/03/20 20:10 Dose: 20 mg Documented by: Senna/Docusate Sodium (Senokot S) 1 tab PO BID [facility] Stop: 07/03/20 20:59 Last Admin: 06/04/20 08:44 Dose: 1 tab Documented by:
[2020-06-04] MEDS: ROSUVASTATIN CALCIUM 20 MG TAB PO SCH (21:24)
[2020-06-04] MEDS: MONTELUKAST SODIUM 10 MG TABLET PO SCH (21:25)
[2020-06-04] MEDS: METOPROLOL TARTRATE 25 MG TAB PO SCH (22:17)
[2020-06-04] MEDS: ENOXAPARIN INJ 30 MG/0.3 ML SYR SQ SCH (22:17)
[2020-06-04] MEDS: DICLOFENAC SOD 1% GEL 100 GM TUBE EXT SCH (22:34)
[2020-06-05] MEDS ORDERED: CALCIUM CARBONATE 500 MG CHEWABLE TAB PO PRN
[2020-06-05] MEDS ORDERED: HYDROmorphone INJ 0.5 MG/0.5 ML SYR IV STA (00:34)
[2020-06-05] MEDS: HYDROmorphone INJ 1 MG/ML SYRINGE IV PRN ×3 (02:30→19:34)
[2020-06-05] MEDS: OXYCODONE/ACETAMINOPHEN 10-325 TAB PO PRN ×3 (06:23→18:56)
[2020-06-05] MEDS: LEVOTHYROXINE SODIUM 100 MCG TABLET PO SCH (06:24)
[2020-06-05] MEDS: FUROSEMIDE 80 MG TAB PO SCH (07:56)
[2020-06-05] MEDS: PREGABALIN 100 MG CAP PO SCH ×3 (07:56→20:32)
[2020-06-05] MEDS: LIDOCAINE 5% 1 PATCH TD SCH ×2 (07:56→08:17)
[2020-06-05] MEDS: PANTOprazole 40 MG TAB PO SCH (07:57)
[2020-06-05] MEDS: ISOSORBIDE MONO EXTENDED REL 30 MG TABCR PO SCH (07:57)
[2020-06-05] MEDS: LORATADINE 10 MG TAB PO SCH (07:57)
[2020-06-05] MEDS: ASPIRIN 81 MG ECTAB PO SCH (07:57)
[2020-06-05] MEDS: lisinopriL 20 MG TAB PO SCH (07:57)
[2020-06-05] MEDS: DOCUSATE SODIUM/SENNA 50/8.6MG TAB PO SCH ×2 (07:58→20:40)
[2020-06-05] MEDS: DICLOFENAC SOD 1% GEL 100 GM TUBE EXT SCH ×2 (07:58→20:40)
[2020-06-05] MEDS: INSULIN ASPART 100 UNITS/ML 3 ML PEN SC SCH ×4 (08:02→20:38)
[2020-06-05] MEDS: INSULIN DETEMIR FLEXPEN/FLEX TOUCH 100 UNITS/ML 3ML SC SCH ×2 (08:04→20:33)
[2020-06-05] MEDS: ACETAMINOPHEN 325 MG TAB PO PRN ×2 (08:57→23:57)
[2020-06-05] MEDS: METOPROLOL TARTRATE 50 MG TAB PO SCH (08:57)
--- NOTE | 2020-06-05 09:39 | Pharmacy Report ---
Pharmacy Glycemic Short Note 2 - Date of Service June 05, 2020 - Glycemic Short BSG Results (Last 24 hours): 06/04/20 06/04/20 06/04/20 11:29 16:36 16:37 POC Glucose 165 H 57 L* 63 L* 06/04/20 06/04/20 06/05/20 17:04 20:10 07:38 POC Glucose 85 124 H 113 H OUTPATIENT ANTIDIABETIC REGIMEN: * Bydureon 2mg SQ Q Mondays * Levemir 30 units SQ BID * NovoLog units with meals respectively * A1c = 7.8% on 06/03/20 ASSESSMENT: 06/05/20: * Pt has received 85 units of insulin over the past 24hrs * 60 units of basal with Levemir * 25 units of bolus with NovoLog * Pt with LOW BSG yesterday at dinner- most likely secondary to NovoLog (17 units given with lunch). Pt uses units NovoLog with meals as an outpatient but likely needs even less with controlled CHO diet in house. * Will loosen NovoLog CF/CR. * AM fasting BSG is also trending downwards - 141-->113 mg/dl. WIll decrease Lantus slightly to prevent low tomorrow. 06/04/20: * Pt hyperglycemic on admission - worsened after dose of IV Dexamethasone. * Hyperglycemia resolving with RTC NovoLog and stressed basal insulin dosing * Hyperglycemic effects of DXM should start wearing off today - will resume insulin regimen that worked well for patient during 11/2019 admission and titrate based on BSG trends. 06/03/20: * 75 yo F admitted secondary to Intractable Hip/Back Pain. Pharmacy is consulted for Glycemic Management. Patient is known to our service. * She received a one time dose of IV dexamethasone in the ED. No further steroids are ordered at this time. * Will utilize previous admission data in order to design regimen for this stay. * Expect BSGs to decrease as Dexamethasone dose wears off. PLAN FOR INPATIENT GLYCEMIC CONTROL: * Basal insulin: decrease * Levemir 28 units SQ BID * Bolus insulin: loosen parameters * NovoLog per scale ACHS or Q6hrs while NPO * Goal Range: Low 110 mg/dL - High 140 mg/dL * Correction Factor: 20 mg/dL/unit * Nutritional / Prandial insulin per carb ratio of 1 unit per 6 grams CHO consumed PLAN FOR DISCHARGE: * A1c is in goal range based on age/comorbidities. * No changes needed to outpatient regimen.
--- NOTE | 2020-06-05 11:29 | Orthopedic Consultation ---
Date of Consultation June 05, 2020 Assessment & Plan (1) Left hip pain: MRI of the lumbar spine does demonstrate evidence of spinal stenosis most impressive at L1-L2. However I do not appreciate any significant significant neural foraminal disease. Symptom complex seems to be more consistent with osteoarthritis of the hips. Understand a CAT scan of the pelvis is pending. We may need to consider consultation with general orthopedics regarding hip osteoarthritis. Present on Admission?: Yes History of Present Illness Reason for Consultation: Back and bilateral leg pain Attending Physician: Amanda Cedeno MD History of Present Illness This is a very pleasant 75-year-old female presents with worsening back and leg pain. She states left is worse than the right. She describes all activity exacerbating in nature. Symptoms seem to involve the proximal thigh extending to the knee. She describes some pain extending into the bilateral arches of her feet. She denies any precipitating trauma fall or event. Allergies Allergy/AdvReac Type Severity Reaction Status Date / Time carvedilol AdvReac Mild HEART Verified 06/03/20 09:16 RACING Home Medications Home Medications Medication Instructions Recorded Confirmed Type OneTouch Verio test strips #120 ea NS 06/12/19 06/03/20 Rx Bydureon 2 mg SUBCUT WK 12/01/19 06/03/20 History Levemir U-100 Insulin 30 unit SUBCUT BID 12/01/19 06/03/20 History albuterol sulfate 2 puff INHALATION Q4H PRN 12/01/19 06/03/20 History aspirin 81 mg PO QAM 12/01/19 06/03/20 History fluticasone propionate 1 spray INTRANASAL DAILY PRN 12/01/19 06/03/20 History furosemide 80 mg PO QAM 12/01/19 06/03/20 History insulin aspart U-100 [Novolog See Rx Instructions .ROUTE .COMPLEX 12/01/19 06/03/20 History U-100 Insulin aspart] isosorbide mononitrate 30 mg PO QAM 12/01/19 06/03/20 History levothyroxine 100 mcg PO QAM 12/01/19 06/03/20 History lisinopril 20 mg PO QAM 12/01/19 06/03/20 History loratadine 10 mg PO QAM 12/01/19 06/03/20 History metoprolol tartrate 25 mg PO QPM 12/01/19 06/03/20 History metoprolol tartrate 50 mg PO QAM 12/01/19 06/03/20 History montelukast 10 mg PO HS 12/01/19 06/03/20 History oxycodone-acetaminophen 1 tab PO QID PRN 12/01/19 06/03/20 History pantoprazole 40 mg PO QAM 12/01/19 06/03/20 History polyethylene glycol 3350 17 g PO DAILY PRN 12/01/19 06/03/20 History pregabalin 200 mg PO TID 12/01/19 06/03/20 History rosuvastatin 20 mg PO HS 12/01/19 06/03/20 History Patient History Medical History CAD (coronary artery disease) (Chronic) "cath 2012 - mild, non obstructive disease" Chronic diastolic CHF (congestive heart failure) (Chronic) "echo 2007 - EF 55%, diastolic dysfunction" Chronic pain CKD (chronic kidney disease) stage 3, GFR 30-59 ml/min DM type 2 (diabetes mellitus, type 2) (Chronic) HLD (hyperlipidemia) HTN (hypertension) (Chronic) Hypothyroidism (Chronic) [place] (obstructive sleep apnea) (Chronic) PUD (peptic ulcer disease) (Chronic) Surgical History H/O cataract extraction H/O excision of lamina of cervical vertebra for decompression of spinal cord (Chronic) History of breast biopsy History of colonoscopy with polypectomy History of foot surgery History of hysterectomy (Chronic) History of tonsillectomy and adenoidectomy (Chronic) Family History Other Heart disease Stroke Social History Smoking Status: Never smoker Second Hand Exposure: No; Do You Dip or Chew Tobacco: No; Tobacco Cessation Education Requested by Patient: No Hx Alcohol Use: No Hx Substance Use: No Preferred Language: Azeri Communication Ability: Effective 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 She exhibits plus out of 5 bilateral plantar flexion dorsiflexion quadriceps. She exhibits significant pain to even modest palpation of the legs. She has no significant back pain. Results & Data ([facility]) Vital Signs (Past 12 Hours) Vital Signs Temp Pulse Pulse Resp BP BP Pulse Ox 06/05/20 07:20 36.7 C 66 18 147/78 H 97 06/05/20 07:00 72 06/05/20 03:14 36.6 C 69 20 172/77 H 95 06/05/20 01:01 70
--- NOTE | 2020-06-05 11:56 | CT Scan Report ---
CT hip LT wo con CT DOSE: 601.72 mGy.cm HISTORY: Pain R/O Left hip fracture TECHNIQUE: Multiaxial CT images of the left hip were performed and reformatted in the sagittal and co [place] plane without the use of contrast. A dose lowering technique was utilized adhering to the prin ciples of GOPI. COMPARISON: None. FINDINGS: Generalized degenerative change throughout the left hip. Narrowing of the joint space. Mini mal degenerative acetabular protrusion. Moderate peripheral reactive osteophytic formation throughout. No well-defined fracture. No evidence dislocation. IMPRESSION: 1. Significant degenerative change. 2. No evidence for acute fracture or dislocation. ACT 112: Negative or not required by law. The above report was generated using voice recognition software. It may contain grammatical, syntax or spelling errors. Electronically signed by: Lawrence Lundberg M.D. 06/05/2020 11:54 AM
--- NOTE | 2020-06-05 14:15 | Hospitalist Progress Note ---
Date of Service June 05, 2020 Assessment & Plan (1) Left hip pain: This is a 75-year-old female with significant PMH of CAD, chronic diastolic CHF, T2DM, HTN, HLD, CKD stage III, chronic narcotic use, DDD, hypothyroidism who presents to ED secondary to intractable left hip and low back pain x2 weeks. Moderate left hip pain secondary to osteoarthritis Referred pain in inner thigh of the left side could be secondary to left hip osteoarthritis CT of the hip did show moderate osteoarthritis without any fracture Left hip pain with movement of the hip joints especially external and internal rotation with radiation of pain to the inner thigh Will consult orthopedic surgeon (2) Low back pain: Has lumbar radiculopathy as evidenced by MRI of the lumbar spine No bladder and/or bowel problems No significant weakness of the left lower extremity Appreciate orthospine input and recommendation The pain seems to be more from left hip and lower back (3) CAD (coronary artery disease): Patient denies chest pain or shortness of breath Continue ASA, statin, Imdur, metoprolol, lisinopril Denies any symptoms (4) Chronic diastolic CHF (congestive heart failure): euvolemic, per pt baseline weight ~ 200lb continue lisinopril, metoprolol, lasix, imdur electrolytes acceptable daily weights, strict I and O baseline cr 1.5, today 1.2 with mild elevation in BUN continue lasix for now, monitor renal fxn (5) Nonspecific ST-T wave electrocardiographic changes: pt with inferior t wave inversions, new from prior ecg 11/2019 pt denies CP/SOB appears stable and euvolemic from cardiac standpoint (6) HTN (hypertension): blood pressure stable continue metoprolol, lisinopril, Imdur (7) DM type 2 (diabetes mellitus, type 2): a1c 7.8 on Levemir/novolog, bydureon as outpt consult glycemic pharmacy, appreciate their management (8) Hypothyroidism: continue levothyroxine (9) Chronic pain: pt on chronic percocet, lyrica confirmed via pdmd (10) CKD (chronic kidney disease) stage 3, GFR 30-59 ml/min: baseline cr 1.5 bun/cr today 44 and 1.2 avoid nephrotoxic agents, monitor bmp-creatinine has been normalized (11) HLD (hyperlipidemia): continue statin (12) DVT prophylaxis: Lovenox 30 mg daily Disposition: Admit to medical telemetry due to EKG change, consult case management patient may need rehab Follow-up: PCP Dr. Boland upon discharge Admission and Anticipated Discharge Date Admission Date: June 03, 2020 Subjective The patient was seen and examined in medical floor She has been feeling much better since admission following administration of pain medications Her pain is mostly at the lower back radiates to the left lower extremity and inner thigh Has had prior steroid injections for the pain at the back 06/05/2020 The patient was seen and examined in the medical floor She denies any pain while lying still Complains to have left hip pain with movement of the hip joints especially external and internal rotation with radiation of pain to the inner thigh Denies any other symptoms Review of Systems Review of Systems: All systems reviewed and are unremarkable except as noted below Musculoskeletal: + back pain (With radiation to the left lower extremity and inner thigh), + radicular pain (Inner thigh) and + joint pain (Minimal left hip pain with movement but no significant osteoarthritis on imaging studies) Physical Exam Physical Exam: Lying in bed comfortably Constitutional: well developed, well nourished and + obese; no acute distress and not ill appearing Eyes: PERRL, conjunctivae normal, anicteric sclerae ENMT: external ear and nose normal, oropharynx normal Neck: trachea midline, no thyromegaly Respiratory: normal respiratory effort; no respiratory distress Auscultation: lungs clear to auscultation bilaterally Cardiovascular: Rate/Rhythm: regular rate and regular rhythm Heart Sounds: no murmur Gastrointestinal (Abdomen): Inspection/Auscultation: abdomen normal to inspection; abdomen not distended Percussion/Palpation: abdomen soft Musculoskeletal: left hip pain with movement of the hip joints especially external and internal rotation with radiation of pain to the inner thigh Neurologic: moves all extremities and + focal motor deficit Results & Data Results & Data ([facility]) Vital Signs (Past 12 Hours) Vital Signs Temp Pulse Pulse Resp BP BP Pulse Ox 06/05/20 13:59 36.5 C 66 16 127/63 94 06/05/20 07:20 36.7 C 66 18 147/78 H 97 06/05/20 07:00 72 06/05/20 03:14 36.6 C 69 20 172/77 H 95 Medications Administered Current Inpatient Medications Acetaminophen (Tylenol) 650 mg PO Q4H PRN PRN Reason: pain/fever Stop: 07/03/20 13:08 Last Admin: 06/05/20 08:57 Dose: 650 mg Documented by: Al Hydrox/Mg Hydrox/Simethicone (Maalox) 30 ml PO Q6H PRN PRN Reason: Dyspepsia Stop: 07/03/20 13:08 Aspirin (Ecotrin Ectab) 81 mg PO QAM [facility] Stop: 07/04/20 08:59 Last Admin: 06/05/20 07:57 Dose: 81 mg Documented by: Calcium Carbonate (Tums) 500 mg PO TID PRN PRN Reason: Indigestion Stop: 07/05/20 00:00 Last Admin: 06/05/20 00:34 Dose: 500 mg Documented by: Dextrose (Dextrose 50%) 25 - 50 ml IV UD PRN; Protocol PRN Reason: Hypoglycemia Protocol Stop: 07/03/20 16:36 Diclofenac Sodium (Voltaren 1% Top) 2 gm EXT BID [facility] Stop: 07/04/20 20:59 Last Admin: 06/05/20 07:58 Dose: 2 gm Documented by: Enoxaparin Sodium (Lovenox) 30 mg SQ Q24H [facility] Stop: 07/03/20 20:59 Last Admin: 06/04/20 22:17 Dose: 30 mg Documented by: Fluticasone Propionate (Flonase) 1 sprays BLAKE DAILY PRN PRN Reason: Allergy Symptoms Stop: 07/03/20 16:59 [facility]sem[facility] (Lasix) [facility] [place] Stop: 07/04/20 08:59 Last Admin: 06/05/20 07:56 Dose: 80 mg Documented by: Glucagon (Glucagen) 1 mg SQ UD PRN; Protocol PRN Reason: Hypoglycemia Protocol Stop: 07/03/20 16:36 Glucose (Dex4 Glucose) 4 - 8 tabs PO UD PRN; Protocol PRN Reason: Hypoglycemia Protocol Stop: 07/03/20 16:36 Glucose (Glucose 40%) 15 - 30 gm PO UD PRN; Protocol PRN Reason: Hypoglycemia Protocol Stop: 07/03/20 16:36 Hydromorphone HCl (Dilaudid) 1 mg IV Q6 PRN PRN Reason: Pain Stop: 06/17/20 16:59 Last Admin: 06/05/20 07:59 Dose: 1 mg Documented by: Insulin Aspart (Novolog Flexpen) 0 units SC ACHS [facility]; Protocol Stop: 07/03/20 17:04 Last Admin: 06/05/20 12:40 Dose: 11 units Documented by: Insulin Detemir (Levemir Flextouch) 28 units SC BID [facility]; Protocol Stop: 07/05/20 08:59 Last Admin: 06/05/20 08:04 Dose: 28 units Documented by: Isosorbide Mononitrate (Imdur Extended Rel) 30 mg PO [facility] Stop: 07/04/20 08:59 Last Admin: 06/05/20 07:57 Dose: 30 mg Documented by: Levothyroxine [facility]) [facility]: 07/04/20 06:29 Last Admin: 06/05/20 06:24 Dose: 100 mcg Documented by: Lidocaine (Lidoderm 5%) 1 patch TD [facility] Stop: 07/04/20 08:59 Last Admin: 06/05/20 08:17 Dose: Not Given Documented by: Lisinopril (Zestril) 20 mg PO [facility] Stop: 07/04/20 08:59 Last Admin: 06/05/20 07:57 Dose: 20 mg Documented by: Loratadine (Claritin) 10 mg PO [facility] Stop: 07/04/20 08:59 Last Admin: 06/05/20 07:57 Dose: 10 mg Documented by: Magnesium Hydroxide (Milk Of Magnesia) 30 ml PO Q6H PRN PRN Reason: Constipation Stop: 07/03/20 13:08 Metoprolol Tartrate (Lopressor) 50 mg PO [facility] Stop: 07/04/20 08:59 Last Admin: 06/05/20 08:57 Dose: 50 mg Documented by: Metoprolol Tartrate (Lopressor) 25 mg PO QPM [facility] Stop: 07/03/20 20:59 Last Admin: 06/04/20 22:17 Dose: 25 mg Documented by: Miscellaneous (Carbohydrates For Hypoglycemia) 15 - 30 gm PO UD PRN PRN Reason: Hypoglycemia Protocol Stop: 07/03/20 16:36 Last Admin: 06/04/20 16:39 Dose: 15 gm Documented by: Miscellaneous (Remove Lidoderm Patch) 1 ea N/A DAILY@2100 [facility] Stop: 07/03/20 20:59 Last Admin: 06/04/20 22:18 Dose: 1 ea Documented by: Miscellaneous Information (Consult Glycemic Management Pharmacy) 1 ea N/A UD PRN; Protocol PRN Reason: Consult Stop: 07/03/20 16:56 Montelukast Sodium (Singulair) 10 mg PO [facility] Stop: 07/03/20 20:59 Last Admin: 06/04/20 21:25 Dose: 10 mg Documented by: Ondansetron HCl (Zofran) 4 mg IV Q6H PRN PRN Reason: Nausea Stop: 07/03/20 13:08 Last Admin: 06/05/20 09:39 Dose: 4 mg Documented by: Oxycodone/Acetaminophen (Percocet 10/325mg) 1 tab PO QID PRN PRN Reason: Pain Stop: 06/17/20 16:59 Last Admin: 06/05/20 13:29 Dose: 1 tab Documented by: Pantoprazole Sodium (Protonix) 40 mg PO QAM [facility] Stop: 07/04/20 08:59 Last Admin: 06/05/20 07:57 Dose: 40 mg Documented by: Polyethylene Glycol (Miralax Powder Packet) 17 gm PO DAILY PRN PRN Reason: Constipation Stop: 07/03/20 13:08 Polyethylene Glycol (Miralax Powder Packet) 17 gm PO DAILY PRN PRN Reason: Constipation Stop: 07/03/20 16:59 Pregabalin (Lyrica) 100 mg PO TID [facility] Stop: 07/03/20 20:59 Last Admin: 06/05/20 13:29 Dose: 100 mg Documented by: Rosuvastatin Calcium (Crestor) 20 mg PO [facility] Stop: 07/03/20 20:59 Last Admin: 06/04/20 21:24 Dose: 20 mg Documented by: Senna/Docusate Sodium (Senokot S) 1 tab PO BID [facility] Stop: 07/03/20 20:59 Last Admin: 06/05/20 07:58 Dose: 1 tab Documented by: (1) Low back pain Back pain laterality: midline Chronicity: acute Sciatica presence: without sciatica Qualified Code(s): M54.5 - Low back pain
--- NOTE | 2020-06-05 19:18 | Orthopedic Consultation ---
Date of Consultation June 05, 2020 Assessment & Plan (1) Degenerative joint disease (DJD) of hip: Moderate to severe left hip DJD and trochanteric bursitis. If not contraindicated would begin with NSAIDs, Lidoderm patch and physical therapy. Patient may weight-bear as tolerated on left lower extremity. We discussed corticosteroid injection, would start with intra-articular left hip corticosteroid injection likely will be done at an outpatient setting either with Dr. riley or Dr. Alvarez. I feel the patient's pain is multifactorial and I explained to the patient that pain radiating down her leg and the other side is likely unrelated to her left hip arthritis however starting with intra-articular corticosteroid injection would clear up which pain and to what extent is associated with the hip and which pain is associated with the lumbar spine. This to be both diagnostic and therapeutic. Patient has follow-up appointment with [facility] orthopedics, she may keep her follow-up appointment or see us at [facility] orthopedics, . Thank for the consultation. (2) Trochanteric bursitis of left hip: History of Present Illness Reason for Consultation: Left hip pain Attending Physician: Amanda Cedeno MD History of Present Illness The patient is a 75-year-old female who presents with complaints of intractable acute on chronic left hip pain. Patient has seen Dr. riley pain management previously for her spine and reports having injections for her left hip unclear if intra-articular or bursa injections. For her pain the patient reports taking Percocet. Her complaints include lateral hip pain with activity and pain that radiates down her leg and on the other side. Subjectively it sounds her pain may be multifactorial. Patient reports that Dr. riley referred her to [facility] orthopedics and she has an appointment for her left hip but unclear of the doctor's name. Allergies Allergy/AdvReac Type Severity Reaction Status Date / Time carvedilol AdvReac Mild HEART Verified 06/03/20 09:16 RACING Home Medications Home Medications Medication Instructions Recorded Confirmed Type [employer]sTouch Verio test strips #120 ea NS 06/12/19 06/03/20 Rx Bydureon 2 mg SUBCUT WK 12/01/19 06/03/20 History Levemir U-100 Insulin 30 unit SUBCUT BID 12/01/19 06/03/20 History albuterol sulfate 2 puff INHALATION Q4H PRN 12/01/19 06/03/20 History aspirin 81 mg PO QAM 12/01/19 06/03/20 History fluticasone propionate 1 spray INTRANASAL DAILY PRN 12/01/19 06/03/20 History furosemide 80 mg PO QAM 12/01/19 06/03/20 History insulin aspart U-100 [Novolog See Rx Instructions .ROUTE .COMPLEX 12/01/19 06/03/20 History U-100 Insulin aspart] isosorbide mononitrate 30 mg PO QAM 12/01/19 06/03/20 History levothyroxine 100 mcg PO QAM 12/01/19 06/03/20 History lisinopril 20 mg PO QAM 12/01/19 06/03/20 History loratadine 10 mg PO QAM 12/01/19 06/03/20 History metoprolol tartrate 25 mg PO QPM 12/01/19 06/03/20 History metoprolol tartrate 50 mg PO QAM 12/01/19 06/03/20 History montelukast 10 mg PO HS 12/01/19 06/03/20 History oxycodone-acetaminophen 1 tab PO QID PRN 12/01/19 06/03/20 History pantoprazole 40 mg PO QAM 12/01/19 06/03/20 History polyethylene glycol 3350 17 g PO DAILY PRN 12/01/19 06/03/20 History pregabalin 200 mg PO TID 12/01/19 06/03/20 History rosuvastatin 20 mg PO HS 12/01/19 06/03/20 History Patient History Medical History CAD (coronary artery disease) (Chronic) "cath 2012 - mild, non obstructive disease" Chronic diastolic CHF (congestive heart failure) (Chronic) "echo 2007 - EF 55%, diastolic dysfunction" Chronic pain CKD (chronic kidney disease) stage 3, GFR 30-59 ml/min DM type 2 (diabetes mellitus, type 2) (Chronic) HLD (hyperlipidemia) HTN (hypertension) (Chronic) Hypothyroidism (Chronic) [place] (obstructive sleep apnea) (Chronic) PUD (peptic ulcer disease) (Chronic) Surgical History H/O cataract extraction H/O excision of lamina of cervical vertebra for decompression of spinal cord (Chronic) History of breast biopsy History of colonoscopy with polypectomy History of foot surgery History of hysterectomy (Chronic) History of tonsillectomy and adenoidectomy (Chronic) Family History Other Heart disease Stroke Social History Smoking Status: Never smoker Second Hand Exposure: No; Do You Dip or Chew Tobacco: No; Tobacco Cessation Education Requested by Patient: No Hx Alcohol Use: No Hx Substance Use: No Preferred Language: Afghan Communication Ability: Effective Impregnator Required: No Beliefs That Will Affect Care: None Current Living Situation: Alone Current Living Situation Comment: Lives at an Apartment Complex current occupational status: retired Other Information That Helps Us Care for You: No Feels Safe at Home: Yes Safety Concerns: Feels Safe At This Time Review of Systems Review of Systems: All systems reviewed & are unremarkable except as noted in HPI & below Constitutional: as per Subjective / HPI Physical Exam Physical Exam: Left lower extremity physical exam neurovascular sensory intact, +2 dorsalis pedis pulse, compartment soft nontender, limited painful range of motion of left hip, positive tenderness over greater trochanter and piriformis. Constitutional: WD/WN, vitals as above Results & Data ([place]) Vital Signs (Past 12 Hours) Vital Signs Temp Pulse Pulse Resp BP BP Pulse Ox 06/05/20 16:17 61 06/05/20 15:45 37.1 C 67 16 133/69 96 06/05/20 13:59 36.5 C 66 16 127/63 94 06/05/20 07:20 36.7 C 66 18 147/78 H 97 Diagnostic Findings SINGLE VIEW PELVIS; 3 VIEWS LEFT FEMUR CLINICAL HISTORY: Left leg pain. No reported history of trauma. FINDINGS: An AP supine view of the pelvis with AP, frog-leg, and crosstable lateral views of the left femur are obtained. Correlation is made with pelvic CT dated 02/04/2016. The skeletal structures are osteopenic. There is no radiographic evidence of fracture involving the hips or bony pelvis. There is no radiographic evidence of left hip fracture. Moderate to advanced degenerative joint space narrowing and arthritic change is seen in the hips. Enthesophytes arise from the anterior superior iliac spines. There is degenerative sclerosis of the sacroiliac joints. The left knee joint is grossly maintained. The overlying soft tissues are normal in appearance. Phleboliths are observed in the pelvis. There is mild atherosclerotic calcification of the femoral arteries. IMPRESSION: 1. No acute bony abnormality is seen involving the hips or pelvis. 2. There is no radiographic evidence of left femoral fracture. 3. Osteopenia and degenerative change as above. [place], [place] [phone] XRay Report Patient: SHAUNA RAMSEY Date: 06/03/20 MR#: [id number]: [id number] MARTINEZ Acct ID:[id number]: Date: 1945[facility] Zip: [place] [address] Age: 75Location: ED Sex: F Room/Bed: Att Phy:Diagnosis: LEFT SIDED ABD PAIN INTO LEG Zainab Phy: Jazzmine Boland, DOService Date: 06/03/20 Fam Phy:Interpreting Phy: Mello Glasgow MD Admit Phy: Ordering Phy: Omar Madsen MD cc: ~ SINGLE VIEW PELVIS; 3 VIEWS LEFT FEMUR CLINICAL HISTORY: Left leg pain. No reported history of trauma. FINDINGS: An AP supine view of the pelvis with AP, frog-leg, and crosstable lateral views of the left femur are obtained. Correlation is made with pelvic CT dated 02/04/2016. The skeletal structures are osteopenic. There is no radiographic evidence of fracture involving the hips or bony pelvis. There is no radiographic evidence of left hip fracture. Moderate to advanced degenerative joint space narrowing and arthritic change is seen in the hips. Enthesophytes arise from the anterior superior iliac spines. There is degenerative sclerosis of the sacroiliac joints. The left knee joint is grossly maintained. The overlying soft tissues are normal in appearance. Phleboliths are observed in the pelvis. There is mild atherosclerotic calcification of the femoral arteries. IMPRESSION: 1. No acute bony abnormality is seen involving the hips or pelvis. 2. There is no radiographic evidence of left femoral fracture. 3. Osteopenia and degenerative change as above. CT hip LT wo con CT DOSE: 601.72 mGy.cm HISTORY: Pain R/O Left hip fracture TECHNIQUE: Multiaxial CT images of the left hip were performed and reformatted in the sagittal and coronal plane without the use of contrast. A dose lowering technique was utilized adhering to the principles of ALARA. COMPARISON: None. FINDINGS: Generalized degenerative change throughout the left hip. Narrowing of the joint space. Minimal degenerative acetabular protrusion. Moderate peripheral reactive osteophytic formation throughout. No well-defined fracture. No evidence dislocation. IMPRESSION: 1. Significant degenerative change. 2. No evidence for acute fracture or dislocation.
[2020-06-05] MEDS: ROSUVASTATIN CALCIUM 20 MG TAB PO SCH (20:32)
[2020-06-05] MEDS: METOPROLOL TARTRATE 25 MG TAB PO SCH (20:35)
[2020-06-05] MEDS: ENOXAPARIN INJ 30 MG/0.3 ML SYR SQ SCH (20:38)
[2020-06-05] MEDS: MONTELUKAST SODIUM 10 MG TABLET PO SCH (20:40)
[2020-06-06] MEDS: HYDROmorphone INJ 1 MG/ML SYRINGE IV PRN ×4 (01:47→20:30)
[2020-06-06] MEDS: LEVOTHYROXINE SODIUM 100 MCG TABLET PO SCH (06:21)
[2020-06-06] MEDS: INSULIN DETEMIR FLEXPEN/FLEX TOUCH 100 UNITS/ML 3ML SC SCH ×2 (08:27→20:35)
[2020-06-06] MEDS: INSULIN ASPART 100 UNITS/ML 3 ML PEN SC SCH ×4 (08:27→20:32)
[2020-06-06] MEDS: DOCUSATE SODIUM/SENNA 50/8.6MG TAB PO SCH ×2 (08:28→20:33)
[2020-06-06] MEDS: lisinopriL 20 MG TAB PO SCH (08:28)
[2020-06-06] MEDS: ISOSORBIDE MONO EXTENDED REL 30 MG TABCR PO SCH (08:28)
[2020-06-06] MEDS: PREGABALIN 100 MG CAP PO SCH ×3 (08:29→20:33)
[2020-06-06] MEDS: LORATADINE 10 MG TAB PO SCH (08:29)
[2020-06-06] MEDS: ASPIRIN 81 MG ECTAB PO SCH (08:29)
[2020-06-06] MEDS: DICLOFENAC SOD 1% GEL 100 GM TUBE EXT SCH ×2 (08:29→20:36)
[2020-06-06] MEDS: METOPROLOL TARTRATE 50 MG TAB PO SCH (08:29)
[2020-06-06] MEDS: PANTOprazole 40 MG TAB PO SCH (08:29)
[2020-06-06] MEDS: FUROSEMIDE 80 MG TAB PO SCH (08:29)
[2020-06-06] MEDS: LIDOCAINE 5% 1 PATCH TD SCH (08:30)
[2020-06-06 08:35] LABS: Creatinine Clr Calc Pharmacy 39.8 ml/min; Est GFR (African American) 53.2; Est GFR (Non-African American) 45.9
[2020-06-06] MEDS: OXYCODONE/ACETAMINOPHEN 10-325 TAB PO PRN ×3 (10:28→22:05)
--- NOTE | 2020-06-06 11:48 | Pharmacy Report ---
Pharmacy Glycemic Short Note 2 - Date of Service June 06, 2020 - Glycemic Short BSG Results (Last 24 hours): 06/05/20 06/05/20 06/06/20 16:33 20:05 07:33 POC Glucose 89 163 H 158 H 06/06/20 11:27 POC Glucose 92 OUTPATIENT ANTIDIABETIC REGIMEN: * Bydureon 2mg SQ Q Mondays * Levemir 30 units SQ BID * NovoLog // units with meals respectively * A1c = 7.8% on 06/03/20 ASSESSMENT: 06/06/20: * Patient received total of 78 units of insulin yesterday, of which 56 were basal insulin * Fasting BSG this AM 158 mg/dL - continue same basal insulin * BSGs trending down at lunch time from 158-92 mg/dL - plan to scale back on CR at lunch as previous days indicate BSGS tend to drop from lunch to dinner time 06/05/20: * Pt has received 85 units of insulin over the past 24hrs * 60 units of basal with Levemir * 25 units of bolus with NovoLog * Pt with LOW BSG yesterday at dinner- most likely secondary to NovoLog (17 units given with lunch). Pt uses units NovoLog with meals as an outpatient but likely needs even less with controlled CHO diet in house. * Will loosen NovoLog CF/CR. * AM fasting BSG is also trending downwards - 141-->113 mg/dl. WIll decrease Lantus slightly to prevent low tomorrow. 06/04/20: * Pt hyperglycemic on admission - worsened after dose of IV Dexamethasone. * Hyperglycemia resolving with RTC NovoLog and stressed basal insulin dosing * Hyperglycemic effects of DXM should start wearing off today - will resume insulin regimen that worked well for patient during 11/2019 admission and titrate based on BSG trends. 06/03/20: * 75 yo F admitted secondary to Intractable Hip/Back Pain. Pharmacy is consulted for Glycemic Management. Patient is known to our service. * She received a one time dose of IV dexamethasone in the ED. No further steroids are ordered at this time. * Will utilize previous admission data in order to design regimen for this stay. * Expect BSGs to decrease as Dexamethasone dose wears off. PLAN FOR INPATIENT GLYCEMIC CONTROL: * Basal insulin: * Levemir 28 units SQ BID * Bolus insulin: loosen parameters * NovoLog per scale ACHS or Q6hrs while NPO * Goal Range: Low 110 mg/dL - High 140 mg/dL * Correction Factor: 20 mg/dL/unit * Nutritional / Prandial insulin per carb ratio of 1 unit per 9 grams CHO consumed PLAN FOR DISCHARGE: * A1c is in goal range based on age/comorbidities. * No changes needed to outpatient regimen.
--- NOTE | 2020-06-06 12:50 | Hospitalist Progress Note ---
Date of Service June 06, 2020 Assessment & Plan (1) Left hip pain: This is a 75-year-old female with significant PMH of CAD, chronic diastolic CHF, T2DM, HTN, HLD, CKD stage III, chronic narcotic use, DDD, hypothyroidism who presents to ED secondary to intractable left hip and low back pain x2 weeks. Moderate left hip pain secondary to osteoarthritis Referred pain in inner thigh of the left side could be secondary to left hip osteoarthritis CT of the hip did show moderate osteoarthritis without any fracture Left hip pain with movement of the hip joints especially external and internal rotation with radiation of pain to the inner thigh Will consult orthopedic surgeon Has moderate to severe osteoarthritis of the left hip with greater trochanteric bursitis Appreciate Ortho input and recommendation Recommended NSAID use(maybe harmful with history of diastolic CHF and CAD), lidocaine and physical therapy on top of a small dose of narcotics pain medication Recommended left hip injection with steroid as an outpatient We will continue with PT and OT Likely discharge tomorrow (2) Low back pain: Has lumbar radiculopathy as evidenced by MRI of the lumbar spine No bladder and/or bowel problems No significant weakness of the left lower extremity Appreciate orthospine input and recommendation The pain seems to be more from left hip and lower back (3) CAD (coronary artery disease): Patient denies chest pain or shortness of breath Continue ASA, statin, Imdur, metoprolol, lisinopril Denies any symptoms (4) Chronic diastolic CHF (congestive heart failure): euvolemic, per pt baseline weight ~ 200lb continue lisinopril, metoprolol, lasix, imdur electrolytes acceptable daily weights, strict I and O baseline cr 1.5, today 1.2 with mild elevation in BUN continue lasix for now, monitor renal fxn (5) Nonspecific ST-T wave electrocardiographic changes: pt with inferior t wave inversions, new from prior ecg 11/2019 pt denies CP/SOB appears stable and euvolemic from cardiac standpoint (6) HTN (hypertension): blood pressure stable continue metoprolol, lisinopril, Imdur (7) DM type 2 (diabetes mellitus, type 2): a1c 7.8 on Levemir/novolog, bydureon as outpt consult glycemic pharmacy, appreciate their management (8) Hypothyroidism: continue levothyroxine (9) Chronic pain: pt on chronic percocet, lyrica confirmed via pd[facility] (10) CKD (chronic kidney disease) stage 3, GFR 30-59 ml/min: baseline cr 1.5 bun/cr today 44 and 1.2 avoid nephrotoxic agents, monitor bmp-creatinine has been normalized (11) HLD (hyperlipidemia): continue statin (12) DVT prophylaxis: Lovenox 30 mg daily Disposition: Admit to medical telemetry due to EKG change, consult case management patient may need rehab Follow-up: PCP Dr. Boland upon discharge Admission and Anticipated Discharge Date Admission Date: June 03, 2020 Subjective The patient was seen and examined in medical floor She has been feeling much better since admission following administration of pain medications Her pain is mostly at the lower back radiates to the left lower extremity and inner thigh Has had prior steroid injections for the pain at the back 06/05/2020 The patient was seen and examined in the medical floor She denies any pain while lying still Complains to have left hip pain with movement of the hip joints especially external and internal rotation with radiation of pain to the inner thigh Denies any other symptoms 06/06/2020 The patient was seen and examined in medical floor She is out of bed on a chair today but still complains to have left hip and back pain Denies any other symptoms She has a still significant pain Review of Systems Review of Systems: All systems reviewed and are unremarkable except as noted below Musculoskeletal: + back pain (With radiation to the left lower extremity and inner thigh), + radicular pain (Inner thigh) and + joint pain (Minimal left hip pain with movement but no significant osteoarthritis on imaging studies) Physical Exam Physical Exam: Sitting on a chair without any acute distress Constitutional: well developed, well nourished and + obese; no acute distress and not ill appearing Eyes: PERRL, conjunctivae normal, anicteric sclerae ENMT: external ear and nose normal, oropharynx normal Neck: trachea midline, no thyromegaly Respiratory: normal respiratory effort; no respiratory distress Auscultation: lungs clear to auscultation bilaterally Cardiovascular: Rate/Rhythm: regular rate and regular rhythm Heart Sounds: no murmur Gastrointestinal (Abdomen): Inspection/Auscultation: abdomen normal to inspection; abdomen not distended Percussion/Palpation: abdomen soft Musculoskeletal: Localized tenderness over the greater trochanteric area on the left side, left hip movement is restricted and painful with internal and external rotation. Neurologic: moves all extremities and + focal motor deficit Alert, awake and oriented x3 Results & Data Results & Data ([facility]) Vital Signs (Past 12 Hours) Vital Signs Temp Pulse Pulse Resp BP BP Pulse Ox 06/06/20 11:07 36.5 C 62 18 98/56 L 95 06/06/20 07:25 36.6 C 64 18 93/64 L 98 06/06/20 03:50 36.4 C L 63 18 126/73 97 06/06/20 01:21 68 Laboratory Results [facility] 06/06/20 07:48 Creatinine 1.15 Medications Administered Current Inpatient Medications Acetaminophen (Tylenol) 650 mg PO Q4H PRN PRN Reason: pain/fever Stop: 07/03/20 13:08 Last Admin: 06/05/20 23:57 Dose: 650 mg Documented by: Al Hydrox/Mg Hydrox/Simethicone (Maalox) 30 ml PO Q6H PRN PRN Reason: Dyspepsia Stop: 07/03/20 13:08 Aspirin (Ecotrin Ectab) 81 mg PO [facility] Stop: 07/04/20 08:59 Last Admin: 06/06/20 08:29 Dose: 81 mg Documented by: Calcium Carbonate (Tums) 500 mg PO TID PRN PRN Reason: Indigestion Stop: 07/05/20 00:00 Last Admin: 06/05/20 00:34 Dose: 500 mg Documented by: Dextrose (Dextrose 50%) 25 - 50 ml IV UD PRN; Protocol PRN Reason: Hypoglycemia Protocol Stop: 07/03/20 16:36 Diclofenac Sodium (Voltaren 1% Top) 2 gm EXT BID [facility] Stop: 07/04/20 20:59 Last Admin: 06/06/20 08:29 Dose: 2 gm Documented by: Enoxaparin Sodium (Lovenox) 30 mg SQ Q24H [facility] Stop: 07/03/20 20:59 Last Admin: 06/05/20 20:38 Dose: 30 mg Documented by: Fluticasone Propionate (Flonase) 1 sprays BLAKE DAILY PRN PRN Reason: Allergy Symptoms Stop: 07/03/20 16:59 [facility]sem[facility] (Lasix) [facility] Stop: 07/04/20 08:59 Last Admin: 06/06/20 08:29 Dose: 80 mg Documented by: Glucagon (Glucagen) 1 mg SQ UD PRN; Protocol PRN Reason: Hypoglycemia Protocol Stop: 07/03/20 16:36 Glucose (Dex4 Glucose) 4 - 8 tabs PO UD PRN; Protocol PRN Reason: Hypoglycemia Protocol Stop: 07/03/20 16:36 Glucose (Glucose 40%) 15 - 30 gm PO UD PRN; Protocol PRN Reason: Hypoglycemia Protocol Stop: 07/03/20 16:36 Hydromorphone HCl (Dilaudid) 1 mg IV Q6 PRN PRN Reason: Pain Stop: 06/17/20 16:59 Last Admin: 06/06/20 08:29 Dose: 1 mg Documented by: Insulin Aspart (Novolog Flexpen) 0 units [facility]; Protocol Stop: 07/03/20 17:04 Last Admin: 06/06/20 12:19 Dose: 3 units Documented by: Insulin Detemir (Levemir Flextouch) 28 units SC B[facility]; Protocol Stop: 07/05/20 08:59 Last Admin: 06/06/20 08:27 Dose: 28 units Documented by: Isosorbide Mononitrate (Imdur Extended Rel) 30 mg PO [facility] Stop: 07/04/20 08:59 Last Admin: 06/06/20 08:28 Dose: 30 mg Documented by: Levothyroxine Sodium (Synthroid) [facility]: 07/04/20 06:29 Last Admin: 06/06/20 06:21 Dose: 100 mcg Documented by: Lidocaine (Lidoderm 5%) 1 patch TD [facility] Stop: 07/04/20 08:59 Last Admin: 06/06/20 08:30 Dose: 1 patch Documented by: Lisinopril (Zestril) 20 mg PO [facility] Stop: 07/04/20 08:59 Last Admin: 06/06/20 08:28 Dose: 20 mg Documented by: Loratadine (Claritin) 10 mg PO [facility] Stop: 07/04/20 08:59 Last Admin: 06/06/20 08:29 Dose: 10 mg Documented by: Magnesium Hydroxide (Milk Of Magnesia) 30 ml PO Q6H PRN PRN Reason: Constipation Stop: 07/03/20 13:08 Metoprolol Tartrate (Lopressor) 50 mg PO [facility] Stop: 07/04/20 08:59 Last Admin: 06/06/20 08:29 Dose: 50 mg Documented by: Metoprolol Tartrate (Lopressor) 25 mg PO QPM [facility] Stop: 07/03/20 20:59 Last Admin: 06/05/20 20:35 Dose: Not Given Documented by: Miscellaneous (Carbohydrates For Hypoglycemia) 15 - 30 gm PO UD PRN PRN Reason: Hypoglycemia Protocol Stop: 07/03/20 16:36 Last Admin: 06/04/20 16:39 Dose: 15 gm Documented by: Miscellaneous (Remove Lidoderm Patch) 1 ea N/A DAILY@2100 [facility] Stop: 07/03/20 20:59 Last Admin: 06/05/20 20:39 Dose: Not Given Documented by: Miscellaneous Information (Consult Glycemic Management Pharmacy) 1 ea N/A UD PRN; Protocol PRN Reason: Consult Stop: 07/03/20 16:56 Montelukast Sodium (Singulair) 10 mg PO HS [facility] Stop: 07/03/20 20:59 Last Admin: 06/05/20 20:40 Dose: 10 mg Documented by: Ondansetron HCl (Zofran) 4 mg IV Q6H PRN PRN Reason: Nausea Stop: 07/03/20 13:08 Last Admin: 06/05/20 09:39 Dose: 4 mg Documented by: Oxycodone/Acetaminophen (Percocet 10/325mg) 1 tab PO QID PRN PRN Reason: Pain Stop: 06/17/20 16:59 Last Admin: 06/06/20 10:28 Dose: 1 tab Documented by: Pantoprazole Sodium (Protonix) 40 mg PO QAM [facility] Stop: 07/04/20 08:59 Last Admin: 06/06/20 08:29 Dose: 40 mg Documented by: Polyethylene Glycol (Miralax Powder Packet) 17 gm PO DAILY PRN PRN Reason: Constipation Stop: 07/03/20 13:08 Polyethylene Glycol (Miralax Powder Packet) 17 gm PO DAILY PRN PRN Reason: Constipation Stop: 07/03/20 16:59 Pregabalin (Lyrica) 100 mg PO TID [facility] Stop: 07/03/20 20:59 Last Admin: 06/06/20 12:42 Dose: 100 mg Documented by: Rosuvastatin Calcium (Crestor) 20 mg PO HS [facility] Stop: 07/03/20 20:59 Last Admin: 06/05/20 20:32 Dose: 20 mg Documented by: Senna/Docusate Sodium (Senokot S) 1 tab PO BID [facility] Stop: 07/03/20 20:59 Last Admin: 06/06/20 08:28 Dose: 1 tab Documented by: (1) Low back pain Back pain laterality: midline Chronicity: acute Sciatica presence: without sciatica Qualified Code(s): M54.5 - Low back pain
[2020-06-06] MEDS ORDERED: PREGABALIN 100 MG CAP PO ONE (14:00)
[2020-06-06] MEDS ORDERED: PREGABALIN 100 MG CAP PO SCH (14:00)
[2020-06-06] MEDS: METOPROLOL TARTRATE 25 MG TAB PO SCH (20:33)
[2020-06-06] MEDS: ENOXAPARIN INJ 30 MG/0.3 ML SYR SQ SCH (20:36)
[2020-06-06] MEDS: ROSUVASTATIN CALCIUM 20 MG TAB PO SCH (20:37)
[2020-06-06] MEDS: MONTELUKAST SODIUM 10 MG TABLET PO SCH (20:37)
[2020-06-07] MEDS: ACETAMINOPHEN 325 MG TAB PO PRN ×3 (01:18→23:56)
[2020-06-07] MEDS: HYDROmorphone INJ 1 MG/ML SYRINGE IV PRN ×3 (03:32→19:01)
[2020-06-07] MEDS: LEVOTHYROXINE SODIUM 100 MCG TABLET PO SCH (05:55)
[2020-06-07] MEDS: OXYCODONE/ACETAMINOPHEN 10-325 TAB PO PRN ×3 (06:36→21:03)
[2020-06-07] MEDS: LIDOCAINE 5% 1 PATCH TD SCH (07:17)
[2020-06-07] MEDS: LORATADINE 10 MG TAB PO SCH (07:18)
[2020-06-07] MEDS: lisinopriL 20 MG TAB PO SCH (07:18)
[2020-06-07] MEDS: ISOSORBIDE MONO EXTENDED REL 30 MG TABCR PO SCH (07:18)
[2020-06-07] MEDS: METOPROLOL TARTRATE 50 MG TAB PO SCH (07:18)
[2020-06-07] MEDS: DOCUSATE SODIUM/SENNA 50/8.6MG TAB PO SCH ×2 (07:18→21:06)
[2020-06-07] MEDS: DICLOFENAC SOD 1% GEL 100 GM TUBE EXT SCH ×2 (07:18→21:07)
[2020-06-07] MEDS: PREGABALIN 100 MG CAP PO SCH ×3 (07:18→21:03)
[2020-06-07] MEDS: ASPIRIN 81 MG ECTAB PO SCH (07:18)
[2020-06-07] MEDS: PANTOprazole 40 MG TAB PO SCH (07:19)
[2020-06-07] MEDS: FUROSEMIDE 80 MG TAB PO SCH (07:19)
[2020-06-07] MEDS: INSULIN DETEMIR FLEXPEN/FLEX TOUCH 100 UNITS/ML 3ML SC SCH ×2 (08:27→21:04)
[2020-06-07] MEDS: INSULIN ASPART 100 UNITS/ML 3 ML PEN SC SCH ×4 (08:27→21:04)
--- NOTE | 2020-06-07 14:36 | Hospitalist Progress Note ---
Date of Service June 07, 2020 Assessment & Plan (1) Left hip pain: This is a 75-year-old female with significant PMH of CAD, chronic diastolic CHF, T2DM, HTN, HLD, CKD stage III, chronic narcotic use, DDD, hypothyroidism who presents to ED secondary to intractable left hip and low back pain x2 weeks. Moderate left hip pain secondary to osteoarthritis Referred pain in inner thigh of the left side could be secondary to left hip osteoarthritis CT of the hip did show moderate osteoarthritis without any fracture Left hip pain with movement of the hip joints especially external and internal rotation with radiation of pain to the inner thigh Will consult orthopedic surgeon Has moderate to severe osteoarthritis of the left hip with greater trochanteric bursitis Appreciate Ortho input and recommendation Recommended NSAID use(maybe harmful with history of diastolic CHF and CAD), lidocaine and physical therapy on top of a small dose of narcotics pain medication Recommended left hip injection with steroid as an outpatient Left hip pain is worsened that she can hardly participate in physical therapy We will call Ortho service to evaluate for possible injection in the knee and patient (2) Low back pain: Has lumbar radiculopathy as evidenced by MRI of the lumbar spine No bladder and/or bowel problems No significant weakness of the left lower extremity Appreciate orthospine input and recommendation The pain seems to be more from left hip and lower back (3) CAD (coronary artery disease): Patient denies chest pain or shortness of breath Continue ASA, statin, Imdur, metoprolol, lisinopril Denies any symptoms (4) Chronic diastolic CHF (congestive heart failure): euvolemic, per pt baseline weight ~ 200lb continue lisinopril, metoprolol, lasix, imdur daily weights, strict I and O baseline cr 1.5, today 1.2 with mild elevation in BUN continue lasix for now, monitor renal fxn No signs of fluid overload (5) Nonspecific ST-T wave electrocardiographic changes: pt with inferior t wave inversions, new from prior ecg 11/2019 pt denies CP/SOB appears stable and euvolemic from cardiac standpoint (6) HTN (hypertension): blood pressure stable continue metoprolol, lisinopril, Imdur Blood pressure remains lower side of normal (7) DM type 2 (diabetes mellitus, type 2): a1c 7.8 on Levemir/novolog, bydureon as outpt consult glycemic pharmacy, appreciate their management (8) Hypothyroidism: continue levothyroxine (9) Chronic pain: pt on chronic percocet, lyrica confirmed via pdmd (10) CKD (chronic kidney disease) stage 3, GFR 30-59 ml/min: baseline cr 1.5 bun/cr today 44 and 1.2 avoid nephrotoxic agents, monitor bmp-creatinine has been normalized (11) HLD (hyperlipidemia): continue statin (12) DVT prophylaxis: Lovenox 30 mg daily Disposition: Admit to medical telemetry due to EKG change, consult case management patient may need rehab Follow-up: PCP Dr. Boland upon discharge If she she is discharged without inpatient joint injection, she will need to have a follow-up appointment with Dr. Alvarez for the same Likely discharge tomorrow if the pain is tolerable and no other intervention is planned by Ortho Admission and Anticipated Discharge Date Admission Date: June 03, 2020 Subjective The patient was seen and examined in medical floor She has been feeling much better since admission following administration of pain medications Her pain is mostly at the lower back radiates to the left lower extremity and inner thigh Has had prior steroid injections for the pain at the back 06/05/2020 The patient was seen and examined in the medical floor She denies any pain while lying still Complains to have left hip pain with movement of the hip joints especially external and internal rotation with radiation of pain to the inner thigh Denies any other symptoms 06/06/2020 The patient was seen and examined in medical floor She is out of bed on a chair today but still complains to have left hip and back pain Denies any other symptoms She has a still significant pain 06/07/2020 The patient was seen and examined in medical floor She complains to have severe pain in the left hip and she could hardly move at times She has been crying with pain since this morning Strongly believes that she will need injection sooner and ready to go for any banks rgery if needed Review of Systems Review of Systems: All systems reviewed and are unremarkable except as noted below Musculoskeletal: + back pain (With radiation to the left lower extremity and inner thigh), + radicular pain (Inner thigh) and + joint pain (Minimal left hip pain with movement but no significant osteoarthritis on imaging studies) Physical Exam Physical Exam: Sitting on a chair with moderate to severe left hip pain Constitutional: well developed, well nourished, + acute distress (Moderate left hip pain), + ill appearing and + obese Eyes: PERRL, conjunctivae normal, anicteric sclerae ENMT: external ear and nose normal, oropharynx normal Neck: trachea midline, no thyromegaly Respiratory: normal respiratory effort; no respiratory distress Auscultation: lungs clear to auscultation bilaterally Cardiovascular: Rate/Rhythm: regular rate and regular rhythm Heart Sounds: no murmur Gastrointestinal (Abdomen): Inspection/Auscultation: abdomen normal to inspection; abdomen not distended Percussion/Palpation: abdomen soft Musculoskeletal: Any movement of the left hip produces pain the hip joint and also referred pain upper inner thigh. Tenderness over greater trochanteric bursa Neurologic: moves all extremities and + focal motor deficit Alert, awake and oriented x3 Results & Data Results & Data ([facility]) Vital Signs (Past 12 Hours) Vital Signs Temp Pulse Resp BP BP Pulse Ox 06/07/20 12:23 36.5 C 63 18 95/51 L 95 06/07/20 07:15 36.6 C 65 18 146/79 H 96 06/07/20 03:34 36.8 C 64 20 110/50 L 90 Medications Administered Current Inpatient Medications Acetaminophen (Tylenol) 650 mg PO Q4H PRN PRN Reason: pain/fever Stop: 07/03/20 13:08 Last Admin: 06/07/20 01:18 Dose: 650 mg Documented by: Al Hydrox/Mg Hydrox/Simethicone (Maalox) 30 ml PO Q6H PRN PRN Reason: Dyspepsia Stop: 07/03/20 13:08 Aspirin (Ecotrin Ectab) 81 mg PO QAM [facility] Stop: 07/04/20 08:59 Last Admin: 06/07/20 07:18 Dose: 81 mg Documented by: Calcium Carbonate (Tums) 500 mg PO TID PRN PRN Reason: Indigestion Stop: 07/05/20 00:00 Last Admin: 06/05/20 00:34 Dose: 500 mg Documented by: Dextrose (Dextrose 50%) 25 - 50 ml IV UD PRN; Protocol PRN Reason: Hypoglycemia Protocol Stop: 07/03/20 16:36 Diclofenac Sodium (Voltaren 1% Top) 2 gm EXT BID [facility] Stop: 07/04/20 20:59 Last Admin: 06/07/20 07:18 Dose: 2 gm Documented by: Enoxaparin Sodium (Lovenox) 30 mg SQ Q24H [facility] Stop: 07/03/20 20:59 Last Admin: 06/06/20 20:36 Dose: 30 mg Documented by: Fluticasone Propionate (Flonase) 1 sprays BLAKE DAILY PRN PRN Reason: Allergy Symptoms Stop: 07/03/20 16:59 Furosemide (Lasix) 80 mg PO [facility] Stop: 07/04/20 08:59 Last Admin: 06/07/20 07:19 Dose: 80 mg Documented by: Glucagon (Glucagen) 1 mg SQ UD PRN; Protocol PRN Reason: Hypoglycemia Protocol Stop: 07/03/20 16:36 Glucose (Dex4 Glucose) 4 - 8 tabs PO UD PRN; Protocol PRN Reason: Hypoglycemia Protocol Stop: 07/03/20 16:36 Glucose (Glucose 40%) 15 - 30 gm PO UD PRN; Protocol PRN Reason: Hypoglycemia Protocol Stop: 07/03/20 16:36 Hydromorphone HCl (Dilaudid) 1 mg IV Q6 PRN PRN Reason: Pain Stop: 06/17/20 16:59 Last Admin: 06/07/20 09:29 Dose: 1 mg Documented by: Insulin Aspart (Novolog Flexpen) 0 units SC [facility]; Protocol Stop: 07/03/20 17:04 Last Admin: 06/07/20 12:13 Dose: 5 units Documented by: Insulin Detemir (Levemir Flextouch) 28 units SC BID [facility]; Protocol Stop: 07/05/20 08:59 Last Admin: 06/07/20 08:27 Dose: 28 units Documented by: Isosorbide Mononitrate (Imdur Extended Rel) 30 mg PO [facility] Stop: 07/04/20 08:59 Last Admin: 06/07/20 07:18 Dose: 30 mg Documented by: Levothyroxine Sodium (Synthroid) [facility] Stop: 07/04/20 06:29 Last Admin: 06/07/20 05:55 Dose: 100 mcg Documented by: Lidocaine (Lidoderm 5%) 1 patch TD [facility] Stop: 07/04/20 08:59 Last Admin: 06/07/20 07:17 Dose: 1 patch Documented by: Lisinopril ([facility]estril) [facility] [place] Stop: 07/04/20 08:59 Last Admin: 06/07/20 07:18 Dose: 20 mg Documented by: Loratadine (Claritin) 10 mg PO QAM [facility] Stop: 07/04/20 08:59 Last Admin: 06/07/20 07:18 Dose: 10 mg Documented by: Magnesium Hydroxide (Milk Of Magnesia) 30 ml PO Q6H PRN PRN Reason: Constipation Stop: 07/03/20 13:08 Metoprolol Tartrate (Lopressor) 50 [facility] [place] Stop: 07/04/20 08:59 Last Admin: 06/07/20 07:18 Dose: 50 mg Documented by: Metoprolol Tartrate (Lopressor) 25 mg PO QPM [facility] Stop: 07/03/20 20:59 Last Admin: 06/06/20 20:33 Dose: 25 mg Documented by: Miscellaneous (Carbohydrates For Hypoglycemia) 15 - 30 gm PO UD PRN PRN Reason: Hypoglycemia Protocol Stop: 07/03/20 16:36 Last Admin: 06/04/20 16:39 Dose: 15 gm Documented by: Miscellaneous (Remove Lidoderm Patch) 1 ea N/A DAILY@2100 [facility] Stop: 07/03/20 20:59 Last Admin: 06/06/20 20:34 Dose: 1 ea Documented by: Miscellaneous Information (Consult Glycemic Management Pharmacy) 1 ea N/A UD PRN; Protocol PRN Reason: Consult Stop: 07/03/20 16:56 Montelukast Sodium (Singulair) 10 mg PO HS [facility] Stop: 07/03/20 20:59 Last Admin: 06/06/20 20:37 Dose: 10 mg Documented by: Ondansetron HCl (Zofran) 4 mg IV Q6H PRN PRN Reason: Nausea Stop: 07/03/20 13:08 Last Admin: 06/05/20 09:39 Dose: 4 mg Documented by: Oxycodone/Acetaminophen (Percocet 10/325mg) 1 tab PO QID PRN PRN Reason: Pain Stop: 06/17/20 16:59 Last Admin: 06/07/20 12:55 Dose: 1 tab Documented by: Pantoprazole Sodium (Protonix) 40 [facility] [place] Stop: 07/04/20 08:59 Last Admin: 06/07/20 07:19 Dose: 40 mg Documented by: Polyethylene Glycol (Miralax Powder Packet) 17 gm PO DAILY PRN PRN Reason: Constipation Stop: 07/03/20 13:08 Polyethylene Glycol (Miralax Powder Packet) 17 gm PO DAILY PRN PRN Reason: Constipation Stop: 07/03/20 16:59 Pregabalin (Lyrica) 200 mg PO TID [facility] Stop: 07/06/20 20:59 Last Admin: 06/07/20 12:55 Dose: 200 mg Documented by: Rosuvastatin Calcium (Crestor) 20 mg PO HS [facility] Stop: 07/03/20 20:59 Last Admin: 06/06/20 20:37 Dose: 20 mg Documented by: Senna/Docusate Sodium (Senokot S) 1 tab PO BID [facility] Stop: 07/03/20 20:59 Last Admin: 06/07/20 07:18 Dose: 1 tab Documented by: (1) Low back pain Back pain laterality: midline Chronicity: acute Sciatica presence: without sciatica Qualified Code(s): M54.5 - Low back pain
[2020-06-07] MEDS: POLYETHYLENE (MIRALAX) 17 GM PACK PO PRN (19:02)
[2020-06-07] MEDS: ENOXAPARIN INJ 30 MG/0.3 ML SYR SQ SCH (21:05)
[2020-06-07] MEDS: MONTELUKAST SODIUM 10 MG TABLET PO SCH (21:06)
[2020-06-07] MEDS: METOPROLOL TARTRATE 25 MG TAB PO SCH (21:07)
[2020-06-07] MEDS: ROSUVASTATIN CALCIUM 20 MG TAB PO SCH (21:07)
[2020-06-08] MEDS: HYDROmorphone INJ 1 MG/ML SYRINGE IV PRN ×5 (01:11→21:35)
[2020-06-08] MEDS: OXYCODONE/ACETAMINOPHEN 10-325 TAB PO PRN ×4 (03:45→23:39)
[2020-06-08] MEDS: LEVOTHYROXINE SODIUM 100 MCG TABLET PO SCH (05:33)
[2020-06-08] MEDS: ACETAMINOPHEN 325 MG TAB PO PRN ×2 (05:33→15:43)
[2020-06-08] MEDS: ISOSORBIDE MONO EXTENDED REL 30 MG TABCR PO SCH (07:28)
[2020-06-08] MEDS: ASPIRIN 81 MG ECTAB PO SCH (07:29)
[2020-06-08] MEDS: lisinopriL 20 MG TAB PO SCH (07:29)
[2020-06-08] MEDS: DOCUSATE SODIUM/SENNA 50/8.6MG TAB PO SCH ×2 (07:29→21:37)
[2020-06-08] MEDS: LORATADINE 10 MG TAB PO SCH (07:29)
[2020-06-08] MEDS: PANTOprazole 40 MG TAB PO SCH (07:29)
[2020-06-08] MEDS: DICLOFENAC SOD 1% GEL 100 GM TUBE EXT SCH ×2 (07:30→21:41)
[2020-06-08] MEDS: FUROSEMIDE 80 MG TAB PO SCH (07:30)
[2020-06-08] MEDS: LIDOCAINE 5% 1 PATCH TD SCH (07:30)
[2020-06-08] MEDS: METOPROLOL TARTRATE 50 MG TAB PO SCH (07:30)
[2020-06-08] MEDS: MAGNESIUM HYDROXIDE SUSP 30 ML UDC PO PRN ×2 (07:34→18:04)
[2020-06-08] MEDS: PREGABALIN 100 MG CAP PO SCH ×3 (07:35→21:35)
[2020-06-08] MEDS: INSULIN ASPART 100 UNITS/ML 3 ML PEN SC SCH ×4 (08:00→21:35)
[2020-06-08] MEDS: INSULIN DETEMIR FLEXPEN/FLEX TOUCH 100 UNITS/ML 3ML SC SCH ×2 (08:03→21:36)
[2020-06-08] MEDS: POLYETHYLENE (MIRALAX) 17 GM PACK PO PRN (10:25)
[2020-06-08 11:19] LABS: Hematocrit (blood only) 39.2 % (37-47); Hemoglobin 12.5 g/dL (12.0-16.0); Mean Corpuscular Hemoglobin 27.5 pg (25-34); Mean Corpuscular Hgb Conc 31.9 g/dL (32-36); Mean Corpuscular Volume 86.3 fL (80-100); Mean Platelet Volume 9.4 fL (7.4-10.4); Platelet Count 297 K/uL (130-400); RDW Coefficient of Variation 13.7 % (11.5-14.5); RDW Standard Deviation 43.2 fL (36.4-46.3); Red Blood Count 4.54 M/uL (4.2-5.4); White Blood Count 8.25 K/uL (4.8-10.8)
[2020-06-08 11:26] LABS: Calcium 8.8 mg/dl (8.5-10.1); Creatinine Clr Calc Pharmacy 44.5 ml/min; Est GFR (African American) 60.7; Est GFR (Non-African American) 52.4; Potassium 4.4 mmol/L (3.5-5.1)
--- NOTE | 2020-06-08 11:32 | Hospitalist Progress Note ---
Date of Service June 08, 2020 Assessment & Plan (1) Left hip pain: This is a 75-year-old female with significant PMH of CAD, chronic diastolic CHF, T2DM, HTN, HLD, CKD stage III, chronic narcotic use, DDD, hypothyroidism who presents to ED secondary to intractable left hip and low back pain x2 weeks. Moderate left hip pain secondary to osteoarthritis Referred pain in inner thigh of the left side could be secondary to left hip osteoarthritis CT of the hip did show moderate osteoarthritis without any fracture Left hip pain with movement of the hip joints especially external and internal rotation with radiation of pain to the inner thigh orthopedic surgery consulted Has moderate to severe osteoarthritis of the left hip with greater trochanteric bursitis Appreciate Ortho input and recommendation Recommended NSAID use(maybe harmful with history of diastolic CHF and CAD), lidocaine and physical therapy on top of a small dose of narcotics pain medication Recommended left hip injection with steroid as an outpatient Left hip pain is worsened that she can hardly participate in physical therapy Ortho service contacted for possible injection/ no inpt injections, need to plan for outpt (2) Low back pain: Has lumbar radiculopathy as evidenced by MRI of the lumbar spine No bladder and/or bowel problems No significant weakness of the left lower extremity Appreciate orthospine input and recommendation Plan for L3-L4 decompression and fusion by Dr. Carreno tomorrow Discuss any further preop recommendations from cardiology Patient has history of [place]ROE, is not using CPAP, chronically elevated PCO2, history of morbid obesity, may have possible respiratory issues and needing CPAP/BiPAP after surgery (3) CAD (coronary artery disease): Patient denies chest pain or shortness of breath Continue ASA, statin, Imdur, metoprolol, lisinopril Denies any symptoms (4) Chronic diastolic CHF (congestive heart failure): euvolemic, per pt baseline weight ~ 200lb continue lisinopril, metoprolol, lasix, imdur daily weights, strict I and O baseline Cr 1.2 some elevation in BUN continue lasix for now, monitor renal fxn, may hold Lasix in the morning tomorrow before surgery No signs of fluid overload Will discuss any further preop recommendations with cardiology (5) Nonspecific ST-T wave electrocardiographic changes: pt with inferior t wave inversions, new from prior ecg 11/2019 pt denies CP/SOB appears stable and euvolemic from cardiac standpoint Will discuss further with cardiology (6) HTN (hypertension): blood pressure stable continue metoprolol, lisinopril, Imdur Blood pressure remains lower side of normal (7) DM type 2 (diabetes mellitus, type 2): a1c 7.8 on Levemir/novolog, bydureon as outpt consult glycemic pharmacy, appreciate their management (8) Hypothyroidism: continue levothyroxine (9) Chronic pain: pt on chronic percocet, lyrica confirmed via pdmd (10) CKD (chronic kidney disease) stage 3, GFR 30-59 ml/min: baseline cr 1.5 bun/cr 40s and 1.2 avoid nephrotoxic agents, monitor bmp-creatinine has been normalized (11) HLD (hyperlipidemia): continue statin (12) DVT prophylaxis: Lovenox 30 mg daily Disposition: Admit to medical telemetry due to EKG change, consult case management patient may need rehab Follow-up: PCP Dr. Boland upon discharge If she she is discharged without inpatient joint injection, she will need to have a follow-up appointment with Dr. Alvarez for the same Plan for orthopedic surgery tomorrow 06/09/2020, with Dr. Carreno Admission and Anticipated Discharge Date Admission Date: June 03, 2020 Subjective Patient currently sitting in a chair, in no acute distress. Discussed with Dr. Carreno this morning, plan for possible surgery for L3-L4 decompression and fusion. Currently she denies any chest pain, shortness of breath, abdominal pain, nausea or vomiting. She only complains of lower back pain and left hip pain. She states that due to pain she is not very ambulatory. ECG on admission, with some T wave inversions. Follows with Dr. Burden (cardiology) as outpatient. History of [place]ROE, patient does not use CPAP. Patient follows with Dr. Burden for pulmonary hypertension, longstanding hypertension with hypertensive heart disease, and diastolic heart failure. Nonobstructive CAD. Moderate mitral insufficiency and morbid obesity. Patient's daughter at the bedside updated. ECG 12-lead ordered, echo ordered. Will discuss with cardiology further pre-op recommendations. Review of Systems Review of Systems: All systems reviewed & are unremarkable except as noted in HPI & below Constitutional: no fever and no chills Respiratory: no cough and no dyspnea Cardiovascular: no chest pain, no palpitations and no edema Gastrointestinal: no abdominal pain and no vomiting Musculoskeletal: + back pain (With radiation to the left lower extremity and inner thigh), + radicular pain (Inner thigh) and + joint pain (Minimal left hip pain with movement but no significant osteoarthritis on imaging studies) Physical Exam Physical Exam: Physical Exam: Elderly obese female, sitting up in a chair, in no acute distress, does complain of lower back pain and left hip pain Constitutional: well developed, well nourished, + mild acute distress (Moderate left hip pain), + ill appearing and + obese Eyes: PERRL, conjunctivae normal, anicteric sclerae ENMT: external ear and nose normal, oropharynx normal Neck: trachea midline Respiratory: normal respiratory effort; no respiratory distress Auscultation: lungs clear to auscultation bilaterally, somewhat diminished breath sounds Cardiovascular: Rate/Rhythm: regular rate and regular rhythm Heart Sounds: no murmur Gastrointestinal (Abdomen): Inspection/Auscultation: abdomen normal to inspection; abdomen not distended Percussion/Palpation: abdomen soft, obese Musculoskeletal: Any movement of the left hip produces pain the hip joint and also referred pain upper inner thigh. Tenderness over greater trochanteric bursa, Low back pain tenderness to palp. Neurologic: moves all extremities and + focal motor deficit Alert, awake and oriented x3, answers questions appropriately Results & Data Results & Data ([facility]) Vital Signs (Past 12 Hours) Vital Signs Temp Pulse Pulse Resp BP BP Pulse Ox 06/08/20 07:02 36.3 C L 68 20 158/73 H 95 06/08/20 03:14 36.7 C 62 18 159/57 H 96 06/08/20 00:48 65 Laboratory Results 06/08/20 06/08/20 06/08/20 Range/Units 11:00 11:00 07:31 WBC 8.25 (4.8-10.8) K/uL RBC 4.54 (4.2-5.4) M/uL Hgb 12.5 (12.0-16.0) g/dL Hct 39.2 (37-47) % MCV 86.3 (80-100) fL MCH 27.5 (25-34) pg MCHC 31.9 L (32-36) g/dL RDW Std Deviation 43.2 (36.4-46.3) fL RDW Coeff of Burak 13.7 (11.5-14.5) % Plt Count 297 (130-400) K/uL MPV 9.4 (7.4-10.4) fL Sodium 139 (136-145) mmol/L Potassium 4.4 (3.5-5.1) mmol/L Chloride 103 (98-107) mmol/L Carbon Dioxide 33 H (21-32) mmol/L Anion Gap 3.0 (3-11) BUN 46 H (7-18) mg/dl Creatinine 1.03 (0.6-1.2) mg/dl Est Cr Clr Drug Dosing 44.5 ml/min Est GFR ( Amer) 60.7 Est GFR (Non-Af Amer) 52.4 BUN/Creatinine Ratio 45.0 H (10-20) Glucose 131 H (70-99) mg/dl POC Glucose 111 H (70-99) mg/dl Calcium 8.8 (8.5-10.1) mg/dl Specimen Hemolysis 06/07/20 06/07/20 06/07/20 Range/Units 20:15 16:32 11:36 WBC (4.8-10.8) K/uL RBC (4.2-5.4) M/uL Hgb (12.0-16.0) g/dL Hct (37-47) % MCV (80-100) fL MCH (25-34) pg MCHC (32-36) g/dL RDW Std Deviation (36.4-46.3) fL RDW Coeff of Burak (11.5-14.5) % Plt Count (130-400) K/uL MPV (7.4-10.4) fL Sodium (136-145) mmol/L Potassium (3.5-5.1) mmol/L Chloride (98-107) mmol/L Carbon Dioxide (21-32) mmol/L Anion Gap (3-11) BUN (7-18) mg/dl Creatinine (0.6-1.2) mg/dl Est Cr Clr Drug Dosing ml/min Est GFR ( Amer) Est GFR (Non-Af Amer) BUN/Creatinine Ratio (10-20) Glucose (70-99) mg/dl POC Glucose 139 H 91 104 H (70-99) mg/dl Calcium (8.5-10.1) mg/dl Specimen Hemolysis Medications Administered Current Inpatient Medications Acetaminophen (Acetaminophen 325 Mg Tab) 650 mg PO Q4H PRN PRN Reason: pain/fever Stop: 07/03/20 13:08 Last Admin: 06/08/20 05:33 Dose: 650 mg Documented by: Al Hydrox/Mg Hydrox/Simethicone (Maalox) 30 ml PO Q6H PRN PRN Reason: Dyspepsia Stop: 07/03/20 13:08 Aspirin (Ecotrin Ectab) 81 mg PO [facility] Stop: 07/04/20 08:59 Last Admin: 06/08/20 07:29 Dose: 81 mg Documented by: Calcium Carbonate (Tums) 500 mg PO TID PRN PRN Reason: Indigestion Stop: 07/05/20 00:00 Last Admin: 06/05/20 00:34 Dose: 500 mg Documented by: Dextrose (Dextrose 50%) 25 - 50 ml IV UD PRN; Protocol PRN Reason: Hypoglycemia Protocol Stop: 07/03/20 16:36 Diclofenac Sodium (Voltaren 1% Top) 2 gm EXT BID [facility] Stop: 07/04/20 20:59 Last Admin: 06/08/20 07:30 Dose: 2 gm Documented by: Fluticasone Propionate (Flonase) 1 sprays BLAKE DAILY PRN PRN Reason: Allergy Symptoms Stop: 07/03/20 16:59 Furosemide (Furosemide 80 Mg Tab) 80 mg PO [facility] Stop: 07/04/20 08:59 Last Admin: 06/08/20 07:30 Dose: 80 mg Documented by: Glucagon (Glucagen) 1 mg SQ UD PRN; Protocol PRN Reason: Hypoglycemia Protocol Stop: 07/03/20 16:36 Glucose (Dex4 Glucose) 4 - 8 tabs PO UD PRN; Protocol PRN Reason: Hypoglycemia Protocol Stop: 07/03/20 16:36 Glucose (Glucose 40%) 15 - 30 gm PO UD PRN; Protocol PRN Reason: Hypoglycemia Protocol Stop: 07/03/20 16:36 Hydromorphone HCl (Hydromorphone Inj 1 Mg/Ml Syringe) 1 mg IV Q6 PRN PRN Reason: Pain Stop: 06/17/20 16:59 Last Admin: 06/08/20 07:58 Dose: 1 mg Documented by: Insulin Aspart (Novolog Flexpen) 0 units SC [facility]; Protocol Stop: 07/03/20 17:04 Last Admin: 06/08/20 08:00 Dose: 5 units Documented by: Insulin Detemir (Levemir Flextouch) 28 units SC BID [facility]; Protocol Stop: 07/05/20 08:59 Last Admin: 06/08/20 08:03 Dose: 28 units Documented by: Isosorbide Mononitrate (Imdur Extended Rel) 30 mg PO [facility] Stop: 07/04/20 08:59 Last Admin: 06/08/20 07:28 Dose: 30 mg Documented by: [facility]othy[facility]ine [facility]) [facility]: 07/04/20 06:29 Last Admin: 06/08/20 05:33 Dose: 100 mcg Documented by: Lidocaine (Lidoderm 5%) 1 patch TD [facility] Stop: 07/04/20 08:59 Last Admin: 06/08/20 07:30 Dose: 1 patch Documented by: Lisinopril (Zestril) 20 mg PO [facility] Stop: 07/04/20 08:59 Last Admin: 06/08/20 07:29 Dose: 20 mg Documented by: Loratadine (Claritin) 10 mg PO [facility] Stop: 07/04/20 08:59 Last Admin: 06/08/20 07:29 Dose: 10 mg Documented by: Magnesium Hydroxide (Milk Of Magnesia) 30 ml PO Q6H PRN PRN Reason: Constipation Stop: 07/03/20 13:08 Last Admin: 06/08/20 07:34 Dose: 30 ml Documented by: Metoprolol Tartrate (Lopressor) 50 mg PO [facility] Stop: 07/04/20 08:59 Last Admin: 06/08/20 07:30 Dose: 50 mg Documented by: Metoprolol Tartrate (Lopressor) 25 mg PO QPM [facility] Stop: 07/03/20 20:59 Last Admin: 06/07/20 21:07 Dose: 25 mg Documented by: Miscellaneous (Carbohydrates For Hypoglycemia) 15 - 30 gm PO UD PRN PRN Reason: Hypoglycemia Protocol Stop: 07/03/20 16:36 Last Admin: 06/04/20 16:39 Dose: 15 gm Documented by: Miscellaneous (Remove Lidoderm Patch) 1 ea N/A DAILY@2100 [facility] Stop: 09/06/20 20:59 Last Admin: 06/07/20 21:07 Dose: 1 ea Documented by: Miscellaneous Information (Consult Glycemic Management Pharmacy) 1 ea N/A UD PRN; Protocol PRN Reason: Consult Stop: 07/03/20 16:56 Montelukast Sodium (Singulair) 10 mg PO HS [facility] Stop: 07/03/20 20:59 Last Admin: 06/07/20 21:06 Dose: 10 mg Documented by: Ondansetron HCl (Zofran) 4 mg IV Q6H PRN PRN Reason: Nausea Stop: 07/03/20 13:08 Last Admin: 06/05/20 09:39 Dose: 4 mg Documented by: Oxycodone/Acetaminophen (Oxycodone/Acetaminophen 10-325 Tab) 1 tab PO QID PRN PRN Reason: Pain Stop: 06/17/20 16:59 Last Admin: 06/08/20 10:15 Dose: 1 tab Documented by: Pantoprazole Sodium (Protonix) 40 mg PO QAM [facility] Stop: 07/04/20 08:59 Last Admin: 06/08/20 07:29 Dose: 40 mg Documented by: Polyethylene Glycol (Miralax Powder Packet) 17 gm PO DAILY PRN PRN Reason: Constipation Stop: 07/03/20 13:08 Last Admin: 06/08/20 10:25 Dose: 17 gm Documented by: Polyethylene Glycol (Miralax Powder Packet) 17 gm PO DAILY PRN PRN Reason: Constipation Stop: 07/03/20 16:59 Pregabalin (Lyrica) 200 mg PO TID [facility] Stop: 07/06/20 20:59 Last Admin: 06/08/20 07:35 Dose: 200 mg Documented by: Rosuvastatin Calcium (Crestor) 20 mg PO HS [facility] Stop: 07/03/20 20:59 Last Admin: 06/07/20 21:07 Dose: 20 mg Documented by: Senna/Docusate Sodium (Senokot S) 1 tab PO BID [facility] Stop: 07/03/20 20:59 Last Admin: 06/08/20 07:29 Dose: 1 tab Documented by: (1) Low back pain Back pain laterality: midline Chronicity: acute Sciatica presence: without sciatica Qualified Code(s): M54.5 - Low back pain
--- NOTE | 2020-06-08 11:57 | Cardiology Consultation ---
Date of Consultation June 08, 2020 Assessment & Plan (1) Preoperative cardiovascular examination: (2) Lumbar disc herniation with radiculopathy: Patient with longstanding history of obesity, hypertension, diastolic dysfunction, and obstructive sleep apnea. At present she is well compensated from a volume status standpoint. She notes intractable back and leg pain. Her EKG performed on 06/03/2020 revealed new T wave inversions in the inferior leads compared to her previous outpatient EKG dated 05/18/2020. Repeat performed today at that she is not in acute pain is relatively stable compared to her baseline. She describes no unstable cardiac signs or symptoms. Given her age and comorbidities, she certainly is at increased risk of both cardiac and noncardiac complications with proposed complex lumbar spine surgery. I do however believe that she is compensated, would recommend continuing her current outpatient medications including aspirin, isosorbide mononitrate, lisinopril, metoprolol, and rosuvastatin. Agree with holding her furosemide for now. I would estimate that she is at low to moderate risk of perioperative cardiac complication, as after prolonged discussion with the patient, she and I came to the conclusion that would be to her benefit to proceed with surgery at the benefits await the potential risks. History of Present Illness Attending Physician: Gregorio Chicas MD History of Present Illness Angi Giraldo is a 75 year old female seen in preoperative cardiology assessment per the request of Dr Chicas prior to proposed L3-L4 decompression and fusion tomorrow with Dr Carreno. The patient was admitted on 06/03/20 with intractable hip and back pain. She states that on the day of admission she had been to see Dr. Pompa's conventional pain management at [facility], as she was getting back into her car, she had severe back pain radiating down her legs on both sides was unbearable emergency room visit and admission. She has had ongoing discomfort that is not been responsive to nonoperative measures thus far. At present, she is sitting in the bedside chair, and struggles to find a comfortable position. The patient was most recently seen in outpatient cardiology follow up by Dr Burden of our practice on 10/01/19. She denies any recent chest discomfort, she describes a chronic degree of shortness of breath. Outpatient Problem List: 1.Longstanding hypertension with hypertensive heart disease. 2.History of past diastolic heart failure. 3.Nonobstructive coronary artery disease by cardiac catheterization, [facility], August 2013. 4.Moderate mitral insufficiency. 5.Morbid obesity. 6.Moderate to severe obstructive sleep apnea with patient unable to tolerate CPAP per description. 7.Longstanding daytime somnolence with past use to Ritalin. 8.Pulmonary hypertension. 9.Hypothyroidism. 10.Type 2 diabetes mellitus. 11.Chronic pain secondary to arthritis/rheumatoid arthritis, and degenerative joint disease. Allergies Allergy/AdvReac Type Severity Reaction Status Date / Time carvedilol AdvReac Mild HEART Verified 06/03/20 09:16 RACING Home Medications Home Medications Medication Instructions Recorded Confirmed Type Velsys Limited Verio test strips #120 ea NS 06/12/19 06/03/20 Rx Bydureon 2 mg SUBCUT WK 12/01/19 06/03/20 History Levemir U-100 Insulin 30 unit SUBCUT BID 12/01/19 06/03/20 History albuterol sulfate 2 puff INHALATION Q4H PRN 12/01/19 06/03/20 History aspirin 81 mg PO QAM 12/01/19 06/03/20 History fluticasone propionate 1 spray INTRANASAL DAILY PRN 12/01/19 06/03/20 History furosemide 80 mg PO QAM 12/01/19 06/03/20 History insulin aspart U-100 [Novolog See Rx Instructions .ROUTE .COMPLEX 12/01/19 06/03/20 History U-100 Insulin aspart] isosorbide mononitrate 30 mg PO QAM 12/01/19 06/03/20 History levothyroxine 100 mcg PO QAM 12/01/19 06/03/20 History lisinopril 20 mg PO QAM 12/01/19 06/03/20 History loratadine 10 mg PO QAM 12/01/19 06/03/20 History metoprolol tartrate 25 mg PO QPM 12/01/19 06/03/20 History metoprolol tartrate 50 mg PO QAM 12/01/19 06/03/20 History montelukast 10 mg PO HS 12/01/19 06/03/20 History oxycodone-acetaminophen 1 tab PO QID PRN 12/01/19 06/03/20 History pantoprazole 40 mg PO QAM 12/01/19 06/03/20 History polyethylene glycol 3350 17 g PO DAILY PRN 12/01/19 06/03/20 History pregabalin 200 mg PO TID 12/01/19 06/03/20 History rosuvastatin 20 mg PO HS 12/01/19 06/03/20 History Patient History Medical History CAD (coronary artery disease) "cath 2012 - mild, non obstructive disease" Chronic diastolic CHF (congestive heart failure) "echo 2007 - EF 55%, diastolic dysfunction" Chronic pain CKD (chronic kidney disease) stage 3, GFR 30-59 ml/min DM type 2 (diabetes mellitus, type 2) HLD (hyperlipidemia) HTN (hypertension) Hypothyroidism [place] (obstructive sleep apnea) PUD (peptic ulcer disease) Surgical History H/O cataract extraction H/O excision of lamina of cervical vertebra for decompression of spinal cord History of breast biopsy History of colonoscopy with polypectomy History of foot surgery History of hysterectomy History of tonsillectomy and adenoidectomy Family History Other Heart disease Stroke Social History Smoking Status: Never smoker Second Hand Exposure: No; Do You Dip or Chew Tobacco: No; Tobacco Cessation Education Requested by Patient: No Hx Alcohol Use: No Hx Substance Use: No Preferred Language: Maltese Communication Ability: Effective Investment Banking Associate Required: No Beliefs That Will Affect Care: None Current Living Situation: Alone Current Living Situation Comment: Lives at an Apartment Complex current occupational status: retired Other Information That Helps Us Care for You: No Feels Safe at Home: Yes Safety Concerns: Feels Safe At This Time Physical Exam Physical Exam: Temp Pulse Resp BP Pulse Ox 36.3 C L 68 20 158/73 H 95 06/08/20 07:02 06/08/20 07:02 06/08/20 07:02 06/08/20 07:02 06/08/20 07:02 Constitutional: + obese Respiratory: normal respiratory effort, lungs clear to auscultation Cardiovascular: RRR, no murmur, no edema Gastrointestinal (Abdomen): normal bowel sounds, soft, nontender, no hepatosplenomegaly Neurologic: PERRL, EOMI, accommodation nl, no face palsy, no dysarthria Results & Data ([facility]) Vital Signs (Past 12 Hours) Vital Signs Temp Pulse Pulse Resp BP BP Pulse Ox 06/08/20 07:02 36.3 C L 68 20 158/73 H 95 06/08/20 03:14 36.7 C 62 18 159/57 H 96 06/08/20 00:48 65 Laboratory Results CBC 06/08/20 Range/Units 11:00 WBC 8.25 (4.8-10.8) K/uL RBC 4.54 (4.2-5.4) M/uL Hgb 12.5 (12.0-16.0) g/dL Hct 39.2 (37-47) % Plt Count 297 (130-400) K/uL Comprehensive Metabolic Panel 06/08/20 Range/Units 11:00 Sodium 139 (136-145) mmol/L Potassium 4.4 (3.5-5.1) mmol/L Chloride 103 (98-107) mmol/L Carbon Dioxide 33 H (21-32) mmol/L BUN 46 H (7-18) mg/dl Creatinine 1.03 (0.6-1.2) mg/dl Glucose 131 H (70-99) mg/dl Calcium 8.8 (8.5-10.1) mg/dl Intake and Output 06/07/20 06/08/20 06/08/20 22:59 06:59 14:59 Intake Total 500 / 1400 150 / 1400 750 / 750 Output Total 450 / 450 Balance 50 / 950 150 / 950 750 / 750 Intake: Oral 500 / 1400 150 / 1400 750 / 750 Output: Urine 450 / 450 Other: # Unmeasured Voids 2 3 Weight 89.3 kg Diagnostic Findings EKG performed today, 06/08/2012 was 6 PM and reviewed independently: Sinus rhythm at 64 bpm, first-degree AV block, OR interval 222 ms, occasional premature atrial contractions, voltage criteria for LVH noted, left anterior fascicular block pattern. The prior tracing dated 06/03/2020, lateral T wave flattening has resolved, T wave inversions noted in the inferior leads proved, residual T wave inversion noted in lead III, may be a variant of normal. Echocardiogram performed today, 06/08/2020 and reviewed independently: Mild concentric left ventricular hypertrophy is present. LV wall motion. Normal LVEF, 55 to 60% Aortic valve sclerosis without stenosis is present. Grade 1 diastolic dysfunction is present.
--- NOTE | 2020-06-08 13:40 | Orthopedic Progress Note ---
Date of Service June 08, 2020 Assessment & Plan (1) Lumbar disc herniation with radiculopathy: Admission and Anticipated Discharge Date Admission Date: June 03, 2020 This time the patient has failed to improve. She has had these symptoms for well over 2 weeks with continued strength deficits and inability to ambulate. The MRI lumbar spine performed on 06/03/2020 does demonstrate a significant far lateral disc herniation occupying the foramen at L3-L4 on the left with significant displacement of the exiting nerve root. This seems to be the etiology of her pain and symptoms. Subsequently we discussed treatment. She is failed all nonoperative measures including the passage of time and medication as having worsening neurologic decline and would like to consider surgical intervention. It would require a lumbar decompression and fusion at L3-4. To safely address the disc herniation it would require complete facetectomy at L3-4 on the left rendering her unstable subsequently requiring fusion. Risk benefits pros cons and alternatives were outlined in detail. Risk include but not limited to anesthesia blindness stroke paralysis nerve damage blood loss current transfusion infection requiring reoperation benefits hopefully being marked improvement of her radiculopathy and improvement in her strength deficits. At this time we will plan for surgery as soon as possible. Subjective Patient continues to have severe left anterior thigh pain markedly limiting her ability to stand and ambulate. She continues to only be with ambulate a few steps before the leg gives way and she must sit down. I did have her evaluated by my partner for any pathological hip disease. And he feels this is not the etiology of her pain. Physical Exam 2 Physical Exam: Patient is able to sit in a chair at this time. She is in obvious distress. She is unable to stand without significant assistance. She exhibits significant strength deficits to the left quadricep at a 3+ to 4/5 compared to 5/5 on the right. Bilateral plantar flexion dorsiflexion extensor hallucis longus is a 5 or 5. Sensory is diminished along the left anterior thigh in fact she is hyperesthetic in this region. The right demonstrates full sensation. Results & Data ([facility]) Vital Signs (Past 12 Hours) Vital Signs Temp Pulse Resp BP BP Pulse Ox 06/08/20 07:02 36.3 C L 68 20 158/73 H 95 06/08/20 03:14 36.7 C 62 18 159/57 H 96
--- NOTE | 2020-06-08 19:34 | Anesthesiology Consultation ---
Date of Service June 08, 2020 The patient tested negative for Covid 19 today. She was seen by Dr. Lopez today and has been cleared for surgery by cardiology. Assessment & Plan (1) Encounter for pre-operative examination: Chart Review Chart Review: Acceptable Risk for Surgery and Patient NOT seen in Pre Admission Testing Consults Requested none medicine and cardiology are already following the patient History Surgery Operation Date: 06/09/20 07:00 Proposed Procedures p Lumbar Decompression L3-L4 - Chadwick Carreno DO Height/Weight Height: 4 ft 11 in Weight: 89.3 kg Allergies Allergy/AdvReac Type Severity Reaction Status Date / Time carvedilol AdvReac Mild HEART Verified 06/03/20 09:16 RACING Medications Home Medications Medication Instructions Recorded Confirmed Last Taken OneTouch Verio test strips #120 ea NS 06/12/19 06/03/20 Unknown Bydureon 2 mg SUBCUT WK 12/01/19 06/03/20 Unknown Levemir U-100 Insulin 30 unit SUBCUT BID 12/01/19 06/03/20 11/30/19 albuterol sulfate 2 puff INHALATION Q4H PRN 12/01/19 06/03/20 Unknown aspirin 81 mg PO QAM 12/01/19 06/03/20 06/03/20 fluticasone propionate 1 spray INTRANASAL DAILY PRN 12/01/19 06/03/20 Unknown furosemide 80 mg PO QAM 12/01/19 06/03/20 06/03/20 insulin aspart U-100 [Novolog See Rx Instructions .ROUTE .COMPLEX 12/01/19 06/03/20 12/01/19 U-100 Insulin aspart] AM DOSE 21 UNITS isosorbide mononitrate 30 mg PO QAM 12/01/19 06/03/20 06/03/20 levothyroxine 100 mcg PO QAM 12/01/19 06/03/20 06/03/20 lisinopril 20 mg PO QAM 12/01/19 06/03/20 06/03/20 loratadine 10 mg PO QAM 12/01/19 06/03/20 06/03/20 metoprolol tartrate 25 mg PO QPM 12/01/19 06/03/20 11/30/19 metoprolol tartrate 50 mg PO QAM 12/01/19 06/03/20 06/03/20 montelukast 10 mg PO HS 12/01/19 06/03/20 11/30/19 oxycodone-acetaminophen 1 tab PO QID PRN 12/01/19 06/03/20 12/01/19 12:00 pantoprazole 40 mg PO QAM 12/01/19 06/03/20 Unknown polyethylene glycol 3350 17 g PO DAILY PRN 12/01/19 06/03/20 Unknown pregabalin 200 mg PO TID 12/01/19 06/03/20 12/01/19 AM DOSE rosuvastatin 20 mg PO HS 12/01/19 06/03/20 11/30/19 Active Medications Generic Name Dose Route Start Last Admin Trade Name Freq PRN Reason Stop Dose Admin Acetaminophen 650 mg 06/03/20 13:09 06/08/20 15:43 Acetaminophen 325 Mg Tab PO 07/03/20 13:08 650 mg Q4H PRN Administration pain/fever Aspirin 81 mg 06/04/20 09:00 06/08/20 07:29 Ecotrin Ectab PO 07/04/20 08:59 81 mg QAM MILEY Administration Calcium Carbonate 500 mg 06/05/20 00:00 06/05/20 00:34 Tums PO 07/05/20 00:00 500 mg TID PRN Administration Indigestion Diclofenac Sodium 2 gm 06/04/20 21:00 06/08/20 07:30 Voltaren 1% Top EXT 07/04/20 20:59 2 gm BID MILEY Administration Furosemide 80 mg 06/04/20 09:00 06/08/20 07:30 Furosemide 80 Mg Tab PO 07/04/20 08:59 80 mg QAM MILEY Administration Hydromorphone HCl 1 mg 06/03/20 17:00 06/08/20 14:16 Hydromorphone Inj 1 Mg/Ml Syringe IV 06/17/20 16:59 1 mg Q6 PRN Administration Pain Insulin Aspart 0 units 06/03/20 17:05 06/08/20 17:03 Novolog Flexpen SC 07/03/20 17:04 3 units ACHS MILEY Administration Protocol Insulin Detemir 28 units 06/05/20 09:00 06/08/20 08:03 Levemir Flextouch SC 07/05/20 08:59 28 units BID MILEY Administration Protocol Isosorbide Mononitrate 30 mg 06/04/20 09:00 06/08/20 07:28 Imdur Extended Rel PO 07/04/20 08:59 30 mg QAM MILEY Administration Levothyroxine Sodium 100 mcg 06/04/20 06:30 06/08/20 05:33 Synthroid PO 07/04/20 06:29 100 mcg DAILYBB MILEY Administration Lidocaine 1 patch 06/04/20 09:00 06/08/20 07:30 Lidoderm 5% TD 07/04/20 08:59 1 patch QAM MILEY Administration Lisinopril 20 mg 06/04/20 09:00 06/08/20 07:29 Zestril PO 07/04/20 08:59 20 mg QAM MILEY Administration Loratadine 10 mg 06/04/20 09:00 06/08/20 07:29 Claritin PO 07/04/20 08:59 10 mg QAM MILEY Administration Magnesium Hydroxide 30 ml 06/03/20 13:09 06/08/20 18:04 Milk Of Magnesia PO 07/03/20 13:08 30 ml Q6H PRN Administration Constipation Metoprolol Tartrate 50 mg 06/04/20 09:00 06/08/20 07:30 Lopressor PO 07/04/20 08:59 50 mg QAM MILEY Administration Metoprolol Tartrate 25 mg 06/03/20 21:00 06/07/20 21:07 Lopressor PO 07/03/20 20:59 25 mg QPM MILEY Administration Miscellaneous 15 - 30 gm 06/03/20 16:37 06/04/20 16:39 Carbohydrates For Hypoglycemia PO 07/03/20 16:36 15 gm UD PRN Administration Hypoglycemia Protocol Miscellaneous 1 ea 06/03/20 21:00 06/07/20 21:07 Remove Lidoderm Patch N/A 07/03/20 20:59 1 ea DAILY@2100 MILEY Administration Montelukast Sodium 10 mg 06/03/20 21:00 06/07/20 21:06 Singulair PO 07/03/20 20:59 10 mg HS MILEY Administration Ondansetron HCl 4 mg 06/03/20 13:09 06/05/20 09:39 Zofran IV 07/03/20 13:08 4 mg Q6H PRN Administration Nausea Oxycodone/Acetaminophen 1 tab 06/03/20 17:00 06/08/20 17:02 Oxycodone/Acetaminophen 10-325 Tab PO 06/17/20 16:59 1 tab QID PRN Administration Pain Pantoprazole Sodium 40 mg 06/04/20 09:00 06/08/20 07:29 Protonix PO 07/04/20 08:59 40 mg QAM MILEY Administration Polyethylene Glycol 17 gm 06/03/20 13:09 06/08/20 10:25 Miralax Powder Packet PO 07/03/20 13:08 17 gm DAILY PRN Administration Constipation Pregabalin 200 mg 06/06/20 21:00 06/08/20 13:45 Lyrica PO 07/06/20 20:59 200 mg TID MILEY Administration Rosuvastatin Calcium 20 mg 06/03/20 21:00 06/07/20 21:07 Crestor PO 07/03/20 20:59 20 mg HS MILEY Administration Senna/Docusate Sodium 1 tab 06/03/20 21:00 06/08/20 07:29 Senokot S PO 07/03/20 20:59 1 tab BID MILEY Administration Past Medical History Medical History CAD (coronary artery disease) "cath 2012 - mild, non obstructive disease" Chronic diastolic CHF (congestive heart failure) "echo 2007 - EF 55%, diastolic dysfunction" Chronic pain CKD (chronic kidney disease) stage 3, GFR 30-59 ml/min DM type 2 (diabetes mellitus, type 2) HLD (hyperlipidemia) HTN (hypertension) Hypothyroidism MONROE (obstructive sleep apnea) PUD (peptic ulcer disease) Past Family History Family History Other Heart disease Stroke Past Surgical History Surgical History H/O cataract extraction H/O excision of lamina of cervical vertebra for decompression of spinal cord History of breast biopsy History of colonoscopy with polypectomy History of foot surgery History of hysterectomy History of tonsillectomy and adenoidectomy Social History Smoking Status: Never smoker Do You Dip or Chew Tobacco: No Hx Alcohol Use: No alcohol intake frequency: holidays/special occasions only Hx Substance Use: No substance use type: prescription drug Substance Use Type Other:: oxycodone-acetaminophen Last Used Substance Other:: 12:00 today Physical Exam Vital Signs Last Vital Signs Temp 36.3 C L 06/08/20 19:14 Pulse 71 06/08/20 19:14 Resp 20 06/08/20 19:14 BP 135/67 06/08/20 19:14 Pulse Ox 95 06/08/20 19:14 Testing Laboratory Results 06/08/20 11:00 06/08/20 11:00 Hemoglobin A1c 7.8 % (4.5-5.6) H 06/03/20 12:55 Urine Color Yellow 06/03/20 08:50 Urine Appearance Clear (Clear) 06/03/20 08:50 Urine pH 5.0 (4.5-7.5) 06/03/20 08:50 Ur Specific [place] 1.009 (1.000-1.030) 06/03/20 08:50 Urine Protein Negative (Negative) 06/03/20 08:50 Urine Glucose (UA) Negative (Negative) 06/03/20 08:50 Urine Ketones Negative (Negative) 06/03/20 08:50 Urine Nitrite Negative (Negative) 06/03/20 08:50 Ur Leukocyte Esterase 1+ (Negative) H 06/03/20 08:50 Urine WBC (Auto) 1-5 /hpf (0-5) 06/03/20 08:50 Urine RBC (Auto) 0-4 /hpf (0-4) 06/03/20 08:50 U Hyaline Cast (Auto) 1-5 /lpf (0-5) 06/03/20 08:50 U Epithel Cells (Auto) 0-5 /lpf (0-5) 06/03/20 08:50 Urine Bacteria (Auto) Negative (Negative) 06/03/20 08:50 Blood Type O Positive 06/08/20 14:07 Antibody Screen NEGATIVE 06/08/20 14:07 06/08/20 06/08/20 06/08/20 16:34 11:49 07:31 POC Glucose 90 111 H 111 H Electrocardiogram Date: 06/08/20 Findings: + LVH SR with 1st degree AV block, rate 64, PSVCs, L anterior fascicle block Chest X-Ray Date: 06/03/20 Findings: + NAD Echocardiogram Date: 06/08/20 EF: 55-60 LV Function: normal Other Findings: + diastolic dysfunction (grade 1)
[2020-06-08] MEDS: METOPROLOL TARTRATE 25 MG TAB PO SCH (21:37)
[2020-06-08] MEDS: MONTELUKAST SODIUM 10 MG TABLET PO SCH (21:37)
[2020-06-08] MEDS: ROSUVASTATIN CALCIUM 20 MG TAB PO SCH (21:37)
[2020-06-09] MEDS: LEVOTHYROXINE SODIUM 100 MCG TABLET PO SCH (06:03)
--- NOTE | 2020-06-09 06:29 | Electrocardiogram Report ---
Test Reason : Blood Pressure : / mmHG Vent. Rate : 064 BPM Atrial Rate : 064 BPM P-R Int : 222 ms QRS Dur : 116 ms QT Int : 418 ms P-R-T Axes : 038 -53 005 degrees QTc Int : 431 ms Sinus rhythm with 1st degree A-V block with Premature supraventricular complexes Left anterior fascicular block Minimal voltage criteria for LVH, may be normal variant Abnormal ECG When compared with ECG of 03-JUN-2020 12:50, Premature supraventricular complexes are now Present Nonspecific T wave abnormality no longer evident in Anterolateral leads Confirmed by Conor Godinez ([id number]) on 06/09/2020 6:29:37 AM Referred By: REFERRED SELF Confirmed By:Conor Godinez
[2020-06-09 06:49] LABS: Hematocrit (blood only) 40.4 % (37-47); Hemoglobin 13.3 g/dL (12.0-16.0); Mean Corpuscular Hemoglobin 28.3 pg (25-34); Mean Corpuscular Hgb Conc 32.9 g/dL (32-36); Mean Platelet Volume 9.4 fL (7.4-10.4); Platelet Count 303 K/uL (130-400); RDW Coefficient of Variation 13.5 % (11.5-14.5); RDW Standard Deviation 42.4 fL (36.4-46.3); White Blood Count 8.56 K/uL (4.8-10.8)
[2020-06-09] MEDS: INSULIN DETEMIR FLEXPEN/FLEX TOUCH 100 UNITS/ML 3ML SC SCH ×2 (07:19→21:18)
[2020-06-09] MEDS: INSULIN ASPART 100 UNITS/ML 3 ML PEN SC SCH ×4 (07:19→21:19)
[2020-06-09 07:20] LABS: Calcium 9.8 mg/dl (8.5-10.1); Creatinine Clr Calc Pharmacy 40.9 ml/min; Est GFR (African American) 54.9; Est GFR (Non-African American) 47.3; Phosphorus 3.4 mg/dl (2.5-4.9); Potassium 4.6 mmol/L (3.5-5.1)
--- NOTE | 2020-06-09 08:59 | Hospitalist Progress Note ---
Date of Service June 09, 2020 Assessment & Plan (1) Left hip pain: This is a 75-year-old female with significant PMH of CAD, chronic diastolic CHF, T2DM, HTN, HLD, CKD stage III, chronic narcotic use, DDD, hypothyroidism who presents to ED secondary to intractable left hip and low back pain x2 weeks. Moderate left hip pain secondary to osteoarthritis Referred pain in inner thigh of the left side could be secondary to left hip osteoarthritis CT of the hip did show moderate osteoarthritis without any fracture Left hip pain with movement of the hip joints especially external and internal rotation with radiation of pain to the inner thigh orthopedic surgery consulted Has moderate to severe osteoarthritis of the left hip with greater trochanteric bursitis Appreciate Ortho input and recommendation Recommended NSAID use(maybe harmful with history of diastolic CHF and CAD), lidocaine and physical therapy on top of a small dose of narcotics pain medication Recommended left hip injection with steroid as an outpatient Left hip pain is worsened that she can hardly participate in physical therapy Ortho service contacted for possible injection/ no inpt injections, need to plan for outpt (2) Low back pain: Has lumbar radiculopathy as evidenced by MRI of the lumbar spine No bladder and/or bowel problems No significant weakness of the left lower extremity Appreciate orthospine input and recommendation Plan for L3-L4 decompression and fusion by Dr. Carreno today 06/09 Discussed any further preop recommendations with cardiology Patient has history of MONROE, is not using CPAP, chronically elevated PCO2, history of morbid obesity, may have possible respiratory issues and needing CPAP/BiPAP after surgery (3) CAD (coronary artery disease): Patient denies chest pain or shortness of breath Continue ASA, statin, Imdur, metoprolol, lisinopril Denies any symptoms (4) Chronic diastolic CHF (congestive heart failure): euvolemic, per pt baseline weight ~ 200lb continue lisinopril, metoprolol, imdur, will hold lasix this AM prior to surgery daily weights, strict I and O baseline Cr 1.2 some elevation in BUN monitor renal fxn, may hold Lasix in the morning before surgery No signs of fluid overload preop recommendations discussed with cardiology (5) Nonspecific ST-T wave electrocardiographic changes: pt with inferior t wave inversions, new from prior ecg 11/2019 pt denies CP/SOB appears stable and euvolemic from cardiac standpoint - repeated ecg and obtained echo - discussed with cardiology for preop eval (6) HTN (hypertension): blood pressure stable continue metoprolol, lisinopril, Imdur Blood pressure remains lower side of normal (7) DM type 2 (diabetes mellitus, type 2): a1c 7.8 on Levemir/novolog, bydureon as outpt consult glycemic pharmacy, appreciate their management (8) Hypothyroidism: continue levothyroxine (9) Chronic pain: pt on chronic percocet, lyrica confirmed via [facility] (10) CKD (chronic kidney disease) stage 3, GFR 30-59 ml/min: baseline cr 1.5 bun/cr 40s and 1.2 avoid nephrotoxic agents, monitor bmp-creatinine has been normalized (11) HLD (hyperlipidemia): continue statin (12) DVT prophylaxis: Lovenox 30 mg daily Disposition: Admit to medical telemetry due to EKG change, consult case management patient may need rehab Follow-up: PCP Dr. Boland upon discharge If she is discharged without inpatient joint injection, she will need to have a follow-up appointment with Dr. Alvarez for the same Plan for orthopedic surgery today 06/09/2020, with Dr. Carreno Admission and Anticipated Discharge Date Admission Date: June 03, 2020 Subjective Patient is currently sitting in a chair, she continues to have severe lower back pain, and left hip/thigh pain. Patient evaluated by orthospine, and orthopedics for hip pain. It is believed that hip is not etiology of her pain. Plan for L3-L4 decompression and fusion later today. She otherwise denies any fevers chills, chest pain, shortness of breath, abdominal pain, nausea or vomiting. Review of Systems Review of Systems: All systems reviewed & are unremarkable except as noted in HPI & below Constitutional: no fever and no chills Respiratory: no cough and no dyspnea Cardiovascular: no chest pain and no palpitations Gastrointestinal: no abdominal pain, no nausea and no vomiting Musculoskeletal: + back pain (With radiation to the left lower extremity and inner thigh), + radicular pain (Inner thigh) and + joint pain (Minimal left hip pain with movement but no significant osteoarthritis on imaging studies) Physical Exam Physical Exam: Physical Exam: Elderly obese female, sitting up in a chair, in no acute distress, does complain of lower back pain and left hip pain Constitutional: well developed, well nourished, + mild acute distress (Moderate left hip pain), + ill appearing and + obese Eyes: PERRL, conjunctivae normal, anicteric sclerae ENMT: external ear and nose normal, oropharynx normal Neck: trachea midline Respiratory: normal respiratory effort; no respiratory distress Auscultation: lungs clear to auscultation bilaterally, somewhat diminished breath sounds Cardiovascular: Rate/Rhythm: regular rate and regular rhythm Heart Sounds: no murmur Gastrointestinal (Abdomen): Inspection/Auscultation: abdomen normal to inspection; abdomen not distended Percussion/Palpation: abdomen soft, obese Musculoskeletal: Any movement of the left hip produces pain the hip joint and also referred pain upper inner thigh. Tenderness over greater trochanteric bursa, Low back pain tenderness to palp. Neurologic: moves all extremities and + focal motor deficit Alert, awake and oriented x3, answers questions appropriately Results & Data Results & Data ([facility]) Vital Signs (Past 12 Hours) Vital Signs Temp Pulse Pulse Resp BP Pulse Ox 06/09/20 07:38 36.8 C 67 18 158/72 H 97 06/09/20 03:46 36.8 C 49 L 18 141/79 H 95 06/08/20 23:35 68 06/08/20 22:55 36.6 C 49 L 16 112/60 93 06/08/20 22:39 78 152/80 H Laboratory Results 06/09/20 06/09/20 06/09/20 Range/Units 06:21 06:21 06:01 WBC 8.56 (4.8-10.8) K/uL RBC 4.70 (4.2-5.4) M/uL Hgb 13.3 (12.0-16.0) g/dL Hct 40.4 (37-47) % MCV 86.0 (80-100) fL MCH 28.3 (25-34) pg MCHC 32.9 (32-36) g/dL RDW Std Deviation 42.4 (36.4-46.3) fL RDW Coeff of Burak 13.5 (11.5-14.5) % Plt Count 303 (130-400) K/uL MPV 9.4 (7.4-10.4) fL Sodium 138 (136-145) mmol/L Potassium 4.6 (3.5-5.1) mmol/L Chloride 102 (98-107) mmol/L Carbon Dioxide 32 (21-32) mmol/L Anion Gap 4.0 (3-11) BUN 39 H (7-18) mg/dl Creatinine 1.12 (0.6-1.2) mg/dl Est Cr Clr Drug Dosing 40.9 ml/min Est GFR ( Amer) 54.9 Est GFR (Non-Af Amer) 47.3 BUN/Creatinine Ratio 35.0 H (10-20) Glucose 156 H (70-99) mg/dl POC Glucose 175 H (70-99) mg/dl Calcium 9.8 (8.5-10.1) mg/dl Phosphorus 3.4 (2.5-4.9) mg/dl Magnesium 3.0 H (1.8-2.4) mg/dl Specimen Hemolysis COVID-19 Eval Order COVID-19 PCR (Negative) Blood Type Antibody Screen 06/08/20 06/08/20 06/08/20 Range/Units 20:06 16:34 16:20 WBC (4.8-10.8) K/uL RBC (4.2-5.4) M/uL Hgb (12.0-16.0) g/dL Hct (37-47) % MCV (80-100) fL MCH (25-34) pg MCHC (32-36) g/dL RDW Std Deviation (36.4-46.3) fL RDW Coeff of Burak (11.5-14.5) % Plt Count (130-400) K/uL MPV (7.4-10.4) fL Sodium (136-145) mmol/L Potassium (3.5-5.1) mmol/L Chloride (98-107) mmol/L Carbon Dioxide (21-32) mmol/L Anion Gap (3-11) BUN (7-18) mg/dl Creatinine (0.6-1.2) mg/dl Est Cr Clr Drug Dosing ml/min Est GFR ( Amer) Est GFR (Non-Af Amer) BUN/Creatinine Ratio (10-20) Glucose (70-99) mg/dl POC Glucose 167 H 90 (70-99) mg/dl Calcium (8.5-10.1) mg/dl Phosphorus (2.5-4.9) mg/dl Magnesium (1.8-2.4) mg/dl Specimen Hemolysis COVID-19 Eval Order COVID-19 PCR NEGATIVE (Negative) Blood Type Antibody Screen 06/08/20 06/08/20 06/08/20 Range/Units 16:20 14:07 11:49 WBC (4.8-10.8) K/uL RBC (4.2-5.4) M/uL Hgb (12.0-16.0) g/dL Hct (37-47) % MCV (80-100) fL MCH (25-34) pg MCHC (32-36) g/dL RDW Std Deviation (36.4-46.3) fL RDW Coeff of Burak (11.5-14.5) % Plt Count (130-400) K/uL MPV (7.4-10.4) fL Sodium (136-145) mmol/L Potassium (3.5-5.1) mmol/L Chloride (98-107) mmol/L Carbon Dioxide (21-32) mmol/L Anion Gap (3-11) BUN (7-18) mg/dl Creatinine (0.6-1.2) mg/dl Est Cr Clr Drug Dosing ml/min Est GFR ( Amer) Est GFR (Non-Af Amer) BUN/Creatinine Ratio (10-20) Glucose (70-99) mg/dl POC Glucose 111 H (70-99) mg/dl Calcium (8.5-10.1) mg/dl Phosphorus (2.5-4.9) mg/dl Magnesium (1.8-2.4) mg/dl Specimen Hemolysis COVID-19 Eval Order Covid19 Done at [facility] [place] COVID-19 PCR (Negative) Blood Type O Positive Antibody Screen NEGATIVE 06/08/20 06/08/20 Range/Units 11:00 11:00 WBC 8.25 (4.8-10.8) K/uL RBC 4.54 (4.2-5.4) M/uL Hgb 12.5 (12.0-16.0) g/dL Hct 39.2 (37-47) % MCV 86.3 (80-100) fL MCH 27.5 (25-34) pg MCHC 31.9 L (32-36) g/dL RDW Std Deviation 43.2 (36.4-46.3) fL RDW Coeff of Burak 13.7 (11.5-14.5) % Plt Count 297 (130-400) K/uL MPV 9.4 (7.4-10.4) fL Sodium 139 (136-145) mmol/L Potassium 4.4 (3.5-5.1) mmol/L Chloride 103 (98-107) mmol/L Carbon Dioxide 33 H (21-32) mmol/L Anion Gap 3.0 (3-11) BUN 46 H (7-18) mg/dl Creatinine 1.03 (0.6-1.2) mg/dl Est Cr Clr Drug Dosing 44.5 ml/min Est GFR ( Amer) 60.7 Est GFR (Non-Af Amer) 52.4 BUN/Creatinine Ratio 45.0 H (10-20) Glucose 131 H (70-99) mg/dl POC Glucose (70-99) mg/dl Calcium 8.8 (8.5-10.1) mg/dl Phosphorus (2.5-4.9) mg/dl Magnesium (1.8-2.4) mg/dl Specimen Hemolysis COVID-19 Eval Order COVID-19 PCR (Negative) Blood Type Antibody Screen Medications Administered Current Inpatient Medications Acetaminophen (Acetaminophen 325 Mg Tab) 650 mg PO Q4H PRN PRN Reason: pain/fever Stop: 07/03/20 13:08 Last Admin: 06/08/20 15:43 Dose: 650 mg Documented by: Al Hydrox/Mg Hydrox/Simethicone (Maalox) 30 ml PO Q6H PRN PRN Reason: Dyspepsia Stop: 07/03/20 13:08 Aspirin (Ecotrin Ectab) 81 mg PO QAM MILEY Stop: 07/04/20 08:59 Last Admin: 06/08/20 07:29 Dose: 81 mg Documented by: Calcium Carbonate (Tums) 500 mg PO TID PRN PRN Reason: Indigestion Stop: 07/05/20 00:00 Last Admin: 06/05/20 00:34 Dose: 500 mg Documented by: Dextrose (Dextrose 50%) 25 - 50 ml IV UD PRN; Protocol PRN Reason: Hypoglycemia Protocol Stop: 07/03/20 16:36 Diclofenac Sodium (Voltaren 1% Top) 2 gm EXT BID MILEY Stop: 07/04/20 20:59 Last Admin: 06/08/20 21:41 Dose: 2 gm Documented by: Fluticasone Propionate (Flonase) 1 sprays BLAKE DAILY PRN PRN Reason: Allergy Symptoms Stop: 07/03/20 16:59 Furosemide ([facility] 80 Mg Tab) [facility] [place]: 07/04/20 08:59 Last Admin: 06/08/20 07:30 Dose: 80 mg Documented by: Glucagon (Glucagen) 1 mg SQ UD PRN; Protocol PRN Reason: Hypoglycemia Protocol Stop: 07/03/20 16:36 Glucose (Dex4 Glucose) 4 - 8 tabs PO UD PRN; Protocol PRN Reason: Hypoglycemia Protocol Stop: 07/03/20 16:36 Glucose (Glucose 40%) 15 - 30 gm PO UD PRN; Protocol PRN Reason: Hypoglycemia Protocol Stop: 07/03/20 16:36 Hydromorphone HCl (Hydromorphone Inj 1 Mg/Ml Syringe) 1 mg IV Q6 PRN PRN Reason: Pain Stop: 06/17/20 16:59 Last Admin: 06/08/20 21:35 Dose: 1 mg Documented by: Insulin Aspart (Novolog Flexpen) 0 units SC ACHS [facility]; Protocol Stop: 07/03/20 17:04 Last Admin: 06/09/20 07:19 Dose: 2 units Documented by: Insulin Detemir (Levemir Flextouch) 28 units SC BID [facility]; Protocol Stop: 07/05/20 08:59 Last Admin: 06/09/20 07:19 Dose: 28 units Documented by: Isosorbide Mononitrate (Imdur Extended Rel) 30 mg PO [facility] Stop: 07/04/20 08:59 Last Admin: 06/08/20 07:28 Dose: 30 mg Documented by: Levothyroxine Sodium (Synthroid) 100 mcg PO DAILYBB [facility] Stop: 07/04/20 06:29 Last Admin: 06/09/20 06:03 Dose: 100 mcg Documented by: Lidocaine (Lidoderm 5%) 1 patch TD [facility] Stop: 07/04/20 08:59 Last Admin: 06/08/20 07:30 Dose: 1 patch Documented by: Lisinopril (Zestril) 20 mg PO [facility] Stop: 07/04/20 08:59 Last Admin: 06/08/20 07:29 Dose: 20 mg Documented by: Loratadine (Claritin) 10 mg PO QAM [facility] Stop: 07/04/20 08:59 Last Admin: 06/08/20 07:29 Dose: 10 mg Documented by: Magnesium Hydroxide (Milk Of Magnesia) 30 ml PO Q6H PRN PRN Reason: Constipation Stop: 07/03/20 13:08 Last Admin: 06/08/20 18:04 Dose: 30 ml Documented by: Metoprolol Tartrate (Lopressor) 50 mg PO QAM [facility] Stop: 07/04/20 08:59 Last Admin: 06/08/20 07:30 Dose: 50 mg Documented by: Metoprolol Tartrate (Lopressor) 25 mg PO QPM [facility] Stop: 07/03/20 20:59 Last Admin: 06/08/20 21:37 Dose: 25 mg Documented by: Miscellaneous (Carbohydrates For Hypoglycemia) 15 - 30 gm PO UD PRN PRN Reason: Hypoglycemia Protocol Stop: 07/03/20 16:36 Last Admin: 06/04/20 16:39 Dose: 15 gm Documented by: Miscellaneous (Remove Lidoderm Patch) 1 ea N/A DAILY@2100 [facility] Stop: 07/03/20 20:59 Last Admin: 06/08/20 21:41 Dose: 1 ea Documented by: Miscellaneous Information (Consult Glycemic Management Pharmacy) 1 ea N/A UD PRN; Protocol PRN Reason: Consult Stop: 07/03/20 16:56 Montelukast Sodium (Singulair) 10 mg PO HS [facility] Stop: 07/03/20 20:59 Last Admin: 06/08/20 21:37 Dose: 10 mg Documented by: Ondansetron HCl (Zofran) 4 mg IV Q6H PRN PRN Reason: Nausea Stop: 07/03/20 13:08 Last Admin: 06/05/20 09:39 Dose: 4 mg Documented by: Oxycodone/Acetaminophen (Oxycodone/Acetaminophen 10-325 Tab) 1 tab PO QID PRN PRN Reason: Pain Stop: 06/17/20 16:59 Last Admin: 06/08/20 23:39 Dose: 1 tab Documented by: Pantoprazole Sodium (Protonix) 40 mg PO QAM [facility] Stop: 07/04/20 08:59 Last Admin: 06/08/20 07:29 Dose: 40 mg Documented by: Polyethylene Glycol (Miralax Powder Packet) 17 gm PO DAILY PRN PRN Reason: Constipation Stop: 07/03/20 13:08 Last Admin: 06/08/20 10:25 Dose: 17 gm Documented by: Polyethylene Glycol (Miralax Powder Packet) 17 gm PO DAILY PRN PRN Reason: Constipation Stop: 07/03/20 16:59 Pregabalin (Lyrica) 200 mg PO TID [place] Stop: 07/06/20 20:59 Last Admin: 06/08/20 21:35 Dose: 200 mg Documented by: Rosuvastatin Calcium (Crestor) 20 mg PO HS [facility] Stop: 07/03/20 20:59 Last Admin: 06/08/20 21:37 Dose: 20 mg Documented by: Senna/Docusate Sodium (Senokot S) 1 tab PO BID [facility] Stop: 07/03/20 20:59 Last Admin: 06/08/20 21:37 Dose: 1 tab Documented by: (1) Low back pain Back pain laterality: midline Chronicity: acute Sciatica presence: without sciatica Qualified Code(s): M54.5 - Low back pain
[2020-06-09] MEDS: LIDOCAINE 5% 1 PATCH TD SCH (09:26)
[2020-06-09] MEDS: DICLOFENAC SOD 1% GEL 100 GM TUBE EXT SCH ×2 (09:26→21:16)
[2020-06-09] MEDS: HYDROmorphone INJ 1 MG/ML SYRINGE IV PRN (09:26)
[2020-06-09] MEDS: lisinopriL 20 MG TAB PO SCH (09:27)
[2020-06-09] MEDS: ASPIRIN 81 MG ECTAB PO SCH (09:27)
[2020-06-09] MEDS: LORATADINE 10 MG TAB PO SCH (09:27)
[2020-06-09] MEDS: PREGABALIN 100 MG CAP PO SCH ×2 (09:27→17:54)
[2020-06-09] MEDS: METOPROLOL TARTRATE 50 MG TAB PO SCH (09:27)
[2020-06-09] MEDS: DOCUSATE SODIUM/SENNA 50/8.6MG TAB PO SCH ×3 (09:27→21:15)
[2020-06-09] MEDS: ISOSORBIDE MONO EXTENDED REL 30 MG TABCR PO SCH (09:27)
[2020-06-09] MEDS: PANTOprazole 40 MG TAB PO SCH (09:27)
--- NOTE | 2020-06-09 09:41 | Pharmacy Report ---
Pharmacy Glycemic Short Note 2 - Date of Service June 09, 2020 - Glycemic Short BSG Results (Last 24 hours): OUTPATIENT ANTIDIABETIC REGIMEN: * Bydureon 2mg SQ Q Mondays * Levemir 30 units SQ BID * NovoLog units with meals respectively * A1c = 7.8% on 06/03/20 ASSESSMENT: 06/09/20: * Patient received a total of 73 units of insulin yesterday * 56 units basal + 17 units bolus * BSGs ranged 111-167 mg/dL * Fasting BSG this AM was elevated at 175 mg/dL * Patient is NPO today for surgery. Given elevated fasting, continued with current basal dose this AM * Lunchtime BSG was 158 mg/dL. No changes to prandial insulin at this time. * Depending on pre-/intra-/post-operative use of steroids, patient's insulin requirements may increase. 06/06/20: * Patient received total of 78 units of insulin yesterday, of which 56 were b tom insulin * Fasting BSG this AM 158 mg/dL - continue same basal insulin * BSGs trending down at lunch time from 158-92 mg/dL - plan to scale back on CR at lunch as previous days indicate BSGS tend to drop from lunch to dinner time 06/05/20: * Pt has received 85 units of insulin over the past 24hrs * 60 units of basal with Levemir * 25 units of bolus with NovoLog * Pt with LOW BSG yesterday at dinner- most likely secondary to NovoLog (17 units given with lunch). Pt uses units NovoLog with meals as an outpatient but likely needs even less with controlled CHO diet in house. * Will loosen NovoLog CF/CR. * AM fasting BSG is also trending downwards - 141-->113 mg/dl. WIll decrease Lantus slightly to prevent low tomorrow. 06/04/20: * Pt hyperglycemic on admission - worsened after dose of IV Dexamethasone. * Hyperglycemia resolving with RTC NovoLog and stressed basal insulin dosing * Hyperglycemic effects of DXM should start wearing off today - will resume insulin regimen that worked well for patient during 11/2019 admission and titrate based on BSG trends. 06/03/20: * 75 yo F admitted secondary to Intractable Hip/Back Pain. Pharmacy is consulted for Glycemic Management. Patient is known to our service. * She received a one time dose of IV dexamethasone in the ED. No further steroids are ordered at this time. * Will utilize previous admission data in order to design regimen for this stay. * Expect BSGs to decrease as Dexamethasone dose wears off. PLAN FOR INPATIENT GLYCEMIC CONTROL: * Basal insulin: * Levemir 28 units SQ BID * Bolus insulin: loosen parameters * NovoLog per scale ACHS or Q6hrs while NPO * Goal Range: Low 110 mg/dL - High 140 mg/dL * Correction Factor: 20 mg/dL/unit * Nutritional / Prandial insulin per carb ratio of 1 unit per 9 grams CHO consumed PLAN FOR DISCHARGE: * A1c is in goal range based on age/comorbidities. * No changes needed to outpatient regimen.
--- NOTE | 2020-06-09 10:24 | History & Physical Bridge Note ---
Date of Service June 09, 2020 History & Physical Bridge Note I have examined the patient, reviewed the History & Physical and in the interval since the performance of the History & Physical I have noted the following changes of clinical significance: no changes noted Lumbar decompression and fusion L3-L4.
[2020-06-09] MEDS: OXYCODONE/ACETAMINOPHEN 10-325 TAB PO PRN (11:48)
[2020-06-09] MEDS ORDERED: BACITRACIN INJ 50,000 UNIT VIAL ONE (13:12)
[2020-06-09] MEDS ORDERED: fentaNYL citrate 100 MCG/2 ML VIAL ONE (13:12)
[2020-06-09] MEDS ORDERED: BUPIVACAINE/EPINEPHRINE 0.25% 1:200,000 30 ML VIAL ONE (13:12)
[2020-06-09] MEDS ORDERED: ePHEDrine sulfate 50 MG/ML AMP IV PRN (13:14)
[2020-06-09] MEDS ORDERED: LABETALOL HCL IV 5 MG/ML 20ML IV PRN (13:14)
[2020-06-09] MEDS ORDERED: ONDANSETRON INJ 2 MG/ML 2 ML VIAL IV PRN ×2 (13:14→16:20)
[2020-06-09] MEDS ORDERED: fentaNYL citrate 100 MCG/2 ML VIAL IV PRN (13:14)
[2020-06-09] MEDS ORDERED: MEPERIDINE HCL 25 MG/ML CARP/VIAL IV PRN (13:14)
[2020-06-09] MEDS ORDERED: PHENYLEPHRINE 100MCG/ML 5ML SYR IV PRN (13:14)
[2020-06-09] MEDS ORDERED: HYDROmorphone INJ 1 MG/ML SYRINGE IV PRN (13:14)
[2020-06-09] MEDS ORDERED: ATROPINE SULFATE 0.1 MG/ML 10ML SYR IV PRN (13:14)
--- NOTE | 2020-06-09 13:16 | Orthopedic Progress Note ---
Date of Service June 09, 2020 Assessment & Plan (1) Lumbar disc herniation with radiculopathy: Admission and Anticipated Discharge Date Admission Date: June 03, 2020 Patient is in severe pain demonstrating progressive neurologic decline involving the L3 nerve root consistent with the far lateral disc herniation. I am subsequently recommending emergent decompression and fusion. Subjective Patient continues to complain of severe left leg pain. She is in tears this morning secondary to worsening symptoms over the past 24 hours. Physical Exam Physical Exam: Exam she is in the chair at the bedside. She is in extreme distress. She demonstrates progressive strength deficits affecting the left quadricep. Sensory is diminished involving the entire left lower extremity. Results & Data ([facility]) Vital Signs (Past 12 Hours) Vital Signs Temp Pulse Resp BP Pulse Ox 06/09/20 11:24 36.9 C 67 18 179/71 H 97 06/09/20 07:38 36.8 C 67 18 158/72 H 97 06/09/20 03:46 36.8 C 49 L 18 141/79 H 95
[2020-06-09] MEDS ORDERED: CEFAZOLIN 2,000 MG/15 ML IV PUSH IV ONE (13:21)
[2020-06-09] MEDS ORDERED: FLOSEAL HEMOSTATIC MATRIX 10ML TOP ONE (14:38)
[2020-06-09] MEDS ORDERED: PHENYLEPHRINE HCL 10 MG/ML VIAL ONE (15:02)
[2020-06-09] MEDS ORDERED: GLYCOPYRROLATE 0.2 MG/ML VIAL ONE (15:02)
[2020-06-09] MEDS ORDERED: ePHEDrine sulfate 50 MG/ML AMP ONE (15:02)
[2020-06-09] MEDS ORDERED: NEOSTIGMINE METHYLSULFATE 5 MG/5 ML SYR ONE (15:02)
--- NOTE | 2020-06-09 15:09 | Operative Report ---
Post Operative Report Pre & Post Diagnosis Operation Date: 06/09/20 07:00 Pre-Op Diagnosis: Lumbar Disc Herniation with Radiculopathy Post-Op Diagnosis: Lumbar Disc Herniation with Radiculopathy I identified the patient and participated in the time-out.: Yes Procedure Operation Date: 06/09/20 07:00 Actual Procedures #1 lumbar decompression with medial facetectomy foraminotomy with excision of herniated free fragment L3-4. #2 posterior spinal fusion L3-4. #3 placement posterior instrumentation L3-4. #4 interbody fusion L3-4. #5 placement peek c age 11 x 22 mm at L3-4. #6 placement locally harvested morselized autograft in the posterior lateral gutters per #7 placement infuse collagen sponge master graft and posterior gutters and ostial amp interbody space. Surgeon Chadwick Carreno, Property Worker Kallie Covarrubias Estimated Blood Loss 50 Findings See Below The patient is 4 foot 11 inches tall weighing over 89 kg with a BMI in excess of 39. The patient's body habitus did create significant technical difficulty requiring our deepest retractors and longus instruments in order to perform her surgery. It is also increase risk for postoperative complications. This added at least 50% increase to the operative time. Specimens None Indications This is a 75-year-old female that presents with significant decline in status over the past week. She has symptoms of pain radiating into the left anterior thigh to her knee. He was creating the inability to ambulate and unremitting to pain medication. As she was demonstrating progressive quadricep deficit we chose to undergo emergent surgery. Description of Procedure Patient was met with identified informed consent obtained. Patient was then taken to the operative suite underwent an patient placed in a prone position the Quinton table on top of the Santosh frame. All bony prominences well-padded eyes inspected to ensure no external pressure placed upon them. This point the lumbar spine was prepped and draped in a sterile fashion. Sharp dissection with assistance pericardial performed down to and exposing the lamina transverse processes of L3 and L4. From a caudal cephalad fashion complete laminectomy of L3 is performed including complete facetectomy of L3-4 on the left to expose a severely compressed exiting L3 nerve root. Several massive fragments of disc material were removed from the foramen and directly underneath the nerve root. After this complete pedicle screws were placed in L3 and L4 bilaterally with assistance of fluoroscopy the purposes [place] placed. Believe a transforaminal approach on the left complete discectomy was performed endplates curetted to subcortical being bone and 11 x 22 mm peek cage filled with osteo-bone graft tapped in position. The rods then locked into final position bilaterally. The transverse processes of L3 and L4 were burred to subcortical bleeding bone. Infuse collagen sponge mass graft local autograft was then placed in the posterior gutters. 15 round BIBI drain inserted. The incision was then closed with 1 Vicryl in the fascia 2-0 Vicryl subcutaneously and 4 Monocryl for final skin closure. Steri-Strips sterile dressings placed. Patient will continue PACU stable addition. Please note spinal cord monitoring was utilized at the procedure no changes noted. Lastly Kallie Covarrubias was present at the entire surgery involved the patient positioning complex portions of the surgery and final skin closure. I attest to the content of the Intraoperative Record and any orders documented therein. Any exceptions are noted below.
--- NOTE | 2020-06-09 15:12 | Fluoroscopy Report ---
FL lumbar spine 2-3V CLINICAL HISTORY: DECOMPRESSION L3-L4 COMPARISON STUDY: FLUOROSCOPY TIME: 16 seconds NUMBER OF FLUOROSCOPIC IMAGES: 2 FINDINGS: Image intensifier support for an L3-L4 laminectomy and fusion IMPRESSION: Image intensifier support for an L3-L4 laminectomy and fusion. ACT 112: Negative or not required by law. The above report was generated using voice recognition software. It may contain grammatical, syntax or spelling errors. Electronically signed by: Lawrence Lundberg M.D. 06/09/2020 3:11 PM
--- NOTE | 2020-06-09 15:56 | Anesthesiology Progress Note ---
Date of Service June 09, 2020 Anesthesia Post Procedure Vital Signs Vital Signs: Temp Pulse Pulse Pulse Resp BP BP 06/09/20 15:45 36.1 C L 56 L 18 168/61 H 06/09/20 15:35 56 L 18 153/52 H 06/09/20 15:25 36.9 C 57 L 18 165/52 H 06/09/20 12:50 36.7 C 66 20 166/81 H 06/09/20 11:24 36.9 C 67 18 179/71 H 06/09/20 07:38 36.8 C 67 18 158/72 H 06/09/20 03:46 36.8 C 49 L 18 141/79 H 06/08/20 23:35 68 06/08/20 22:55 36.6 C 49 L 16 112/60 06/08/20 22:39 78 152/80 H 06/08/20 19:14 36.3 C L 71 20 135/67 Pulse Ox 06/09/20 15:45 97 06/09/20 15:35 100 06/09/20 15:25 100 06/09/20 12:50 97 06/09/20 11:24 97 06/09/20 07:38 97 06/09/20 03:46 95 06/08/20 23:35 06/08/20 22:55 93 06/08/20 22:39 06/08/20 19:14 95 Pain Intensity Left Other: Pain Intensity: 6 Left Lower Back: Pain Intensity: 10 Left Hip: Pain Intensity: 10 Neck: Pain Intensity: 8 Transfer of Care Handoff Completed per policy Notes Mental Status: alert / awake / arousable Patient Amnestic to Procedure: Yes Nausea / Vomiting: adequately controlled Pain: adequately controlled Airway Patency, RR, SpO2: stable & adequate BP & HR: stable & adequate Hydration State: stable & adequate Anesthetic Complications: no major complications apparent
[2020-06-09] MEDS ORDERED: ALUMINUM/MAGNESIUM SUSP 30 ML UDC PO PRN (16:20)
[2020-06-09] MEDS ORDERED: LORazepam 0.5 MG/1 ML VIAL IV PRN (16:20)
[2020-06-09] MEDS ORDERED: METOCLOPRAMIDE HCL INJ 5 MG/ML 2 ML VIAL IV PRN (16:20)
[2020-06-09] MEDS ORDERED: NALOXONE HCL 0.4 MG/1 ML VIAL/CARP IV PRN (16:20)
[2020-06-09] MEDS ORDERED: MAGNESIUM HYDROXIDE SUSP 30 ML UDC PO PRN (16:20)
[2020-06-09] MEDS ORDERED: FAMOTIDINE 20 MG TAB PO PRN (16:20)
[2020-06-09] MEDS ORDERED: ONDANSETRON 4 MG OD TAB PO PRN (16:20)
[2020-06-09] MEDS ORDERED: ACETAMINOPHEN 1,000 MG/100 ML VIAL IV PRN (16:20)
[2020-06-09] MEDS ORDERED: DO NOT ADMINISTER FLU VACCINE PRN (16:20)
[2020-06-09] MEDS ORDERED: SOD PHOSPHATE/SOD BIPHOSPHATE ENEMA 132 ML BTL PR PRN (16:20)
[2020-06-09] MEDS ORDERED: TRAMADOL HCL 50 MG TABLET PO PRN (16:20)
[2020-06-09] MEDS ORDERED: DO NOT ADMINISTER PNEUMOCOCCAL VACCINE PRN (16:20)
[2020-06-09] MEDS ORDERED: bisacodyL 10 MG SUPP PR PRN (16:20)
[2020-06-09] MEDS ORDERED: LORazepam 0.5 MG TAB PO PRN (16:20)
[2020-06-09] MEDS ORDERED: PROMETHAZINE HCL 12.5 MG in SODIUM CHLORIDE 0.9% 50 ML IV PRN (16:20)
[2020-06-09] MEDS: SODIUM CHLORIDE 0.9% 1000ML 1,000 ML IV SCH (17:03)
--- NOTE | 2020-06-09 17:41 | Cardiology Progress Note ---
Date of Service June 09, 2020 Assessment & Plan (1) Lumbar disc herniation with radiculopathy: Patient with necessary surgery tolerated procedure initially well. We will follow, patient to resume usual antihypertensive regimen (2) Chronic diastolic CHF (congestive heart failure): (3) [place] (obstructive sleep apnea): (4) HTN (hypertension): Admission and Anticipated Discharge Date Admission Date: June 03, 2020 Subjective Patient seen and examined both preoperatively and postoperatively. Still mildly lethargic from anesthesia but answering questions appropriately. Only complaint surgical incision and low back pain. No chest pains or worsening shortness of breath. Tolerated procedure hemodynamically well Review of Systems Review of Systems: All systems reviewed & are unremarkable except as noted in HPI & below Physical Exam Constitutional: + morbidly obese; no acute distress Eyes: PERRL, conjunctivae normal, anicteric sclerae ENMT: external ear and nose normal, oropharynx normal Neck: trachea midline, no thyromegaly + thick neck Respiratory: normal respiratory effort, lungs clear to auscultation Cardiovascular: Rate/Rhythm: regular rate and regular rhythm Extremities: no edema Gastrointestinal (Abdomen): normal bowel sounds, soft, nontender, no hepatosplenomegaly Neurologic: PERRL, EOMI, accommodation nl, no face palsy, no dysarthria Psychiatric: A+Ox3, euthymic affect Results & Data ([facility]) Vital Signs (Past 12 Hours) Vital Signs Temp Pulse Pulse Resp BP BP Pulse Ox 06/09/20 17:11 36.3 C L 70 19 159/82 H 100 06/09/20 16:43 36.3 C L 66 19 162/77 H 98 06/09/20 16:21 36.4 C L 66 16 145/74 H 97 06/09/20 16:05 36.6 C 64 18 151/58 H 98 06/09/20 15:55 64 18 158/61 H 99 06/09/20 15:45 36.1 C L 56 L 18 168/61 H 97 06/09/20 15:35 56 L 18 153/52 H 100 06/09/20 15:25 36.9 C 57 L 18 165/52 H 100 06/09/20 12:50 36.7 C 66 20 166/81 H 97 06/09/20 11:24 36.9 C 67 18 179/71 H 97 06/09/20 07:38 36.8 C 67 18 158/72 H 97 Laboratory Results Laboratory Results - last 24 hr 06/08/20 06/08/20 06/09/20 16:20 20:06 06:01 WBC RBC Hgb Hct MCV MCH MCHC RDW Std Deviation RDW Coeff of Burak Plt Count MPV Sodium Potassium Chloride Carbon Dioxide Anion Gap BUN Creatinine Est Cr Clr Drug Dosing Est GFR ( Amer) Est GFR (Non-Af Amer) BUN/Creatinine Ratio Glucose POC Glucose 167 H 175 H Calcium Phosphorus Magnesium Specimen Hemolysis COVID-19 PCR NEGATIVE 06/09/20 06/09/20 06/09/20 06:21 06:21 11:46 WBC 8.56 RBC 4.70 Hgb 13.3 Hct 40.4 MCV 86.0 MCH 28.3 MCHC 32.9 RDW Std Deviation 42.4 RDW Coeff of Burak 13.5 Plt Count 303 MPV 9.4 Sodium 138 Potassium 4.6 Chloride 102 Carbon Dioxide 32 Anion Gap 4.0 BUN 39 H Creatinine 1.12 Est Cr Clr Drug Dosing 40.9 Est GFR ( Amer) 54.9 Est GFR (Non-Af Amer) 47.3 BUN/Creatinine Ratio 35.0 H Glucose 156 H POC Glucose 158 H Calcium 9.8 Phosphorus 3.4 Magnesium 3.0 H Specimen Hemolysis COVID-19 PCR 06/09/20 06/09/20 15:28 16:33 WBC RBC Hgb Hct MCV MCH MCHC RDW Std Deviation RDW Coeff of Burak Plt Count MPV Sodium Potassium Chloride Carbon Dioxide Anion Gap BUN Creatinine Est Cr Clr Drug Dosing Est GFR ( Amer) Est GFR (Non-Af Amer) BUN/Creatinine Ratio Glucose POC Glucose 154 H 160 H Calcium Phosphorus Magnesium Specimen Hemolysis COVID-19 PCR
[2020-06-09] MEDS ORDERED: NALOXONE HCL 0.4 MG/1 ML VIAL/CARP IV STA ×2 (20:38→20:57)
[2020-06-09] MEDS ORDERED: CEFAZOLIN 2000MG 2,000 MG/15 ML SYR IV SCH (21:00)
--- NOTE | 2020-06-09 21:08 | Communication Note ---
Date of Service: June 09, 2020 Around 8:30 PM, patient noted by RN to be unresponsive. Patient more awake although agitated/confused post Narcan administration as per RN. Patient denies chest pain, S OB, abdominal pain, diarrhea. Complaining of postop back pain serum crea 1.24 UA WBC est, nitrite positive serum ammonia 42.4 AP Postop delirium Multifactorial : Opioid toxicity status post Narcan administration Complicated UTI, patient not septic for now ARF Hyperammonemia ? Hepatic encephalopathy (no prior documentation of chronic liver disease) Caution with opioid Rx given propensity for opioid toxicity Narcan as needed Follow urine cultures, IV cefepime Hold neuropsychotropic and antihistaminic meds for sedation confusion Gentle IV hydration, hold LEFTY inhibitor until creatinine back to baseline Lactulose 1 dose, liver ultrasound in a.m. Re: Hyperammonemia rule out chronic liver disease Zyprexa PRN agitation, one-to-one nursing RN discretion Will relay to AM provider.
[2020-06-09] MEDS: POLYETHYLENE (MIRALAX) 17 GM PACK PO SCH (21:14)
[2020-06-09] MEDS: ROSUVASTATIN CALCIUM 20 MG TAB PO SCH (21:14)
[2020-06-09] MEDS: METOPROLOL TARTRATE 25 MG TAB PO SCH (21:14)
[2020-06-09] MEDS: MONTELUKAST SODIUM 10 MG TABLET PO SCH (21:15)
[2020-06-09 21:32] LABS: Partial Thromboplastin Ratio 0.9; Partial Thromboplastin Time 24.8 Seconds (21.0-31.0)
[2020-06-09 21:39] LABS: Calcium 8.9 mg/dl (8.5-10.1); Creatinine Clr Calc Pharmacy 36.9 ml/min; Est GFR (African American) 48.5; Est GFR (Non-African American) 41.9; Magnesium 2.7 mg/dl (1.8-2.4); Potassium 4.8 mmol/L (3.5-5.1)
[2020-06-09] MEDS ORDERED: LACTULOSE SYRUP 20 GM/30 ML UDC PO STA (22:08)
[2020-06-09 22:14] LABS: Allen Test Pos (Pos); Base Excess ABG 3.2 mEq/L (-9-1.8); HCO3 ABG 27 mmol/L (19-24); Oxygen Saturation ABG 97.6 % (90-95); PCO2 ABG 38 mmHg (35-46); PO2 ABG 94 mmHg (80-95); pH ABG 7.47 (7.35-7.45)
[2020-06-09] MEDS ORDERED: OLANZapine 10 MG/2.1 ML SDV IM STA (22:29)
[2020-06-09 22:46] LABS: Alanine Aminotransferase 19 U/L (12-78); Albumin Level 3.2 gm/dl (3.4-5.0); Alkaline Phosphatase 61 U/L (45-117); Aspartate Aminotransferase 18 U/L (15-37); Bilirubin Direct < 0.1 mg/dl (0-0.2); Bilirubin,Total 0.3 mg/dl (0.2-1); Total Protein 6.4 gm/dl (6.4-8.2)
[2020-06-09 23:53] LABS: Appearance Urine Clear (Clear); Bacteria Urine Automated Negative (Negative); Bilirubin Urine Negative (Negative); Blood Urine Negative (Negative); Color Urine Yellow; Glucose Urine UA Negative (Negative); Ketones Urine Negative (Negative); Leukocyte Esterase Urine 2+ (Negative); Nitrite Urine Positive (Negative); Protein Urine Negative (Negative); RBC Urine Automated 0-4 /hpf (0-4); Specific Gravity Urine 1.016 (1.000-1.030); Urobilinogen Urine Negative (Negative); WBC Urine Automated >30 /hpf (0-5)
[2020-06-10] MEDS ORDERED: CEFEPIME CONSULT ACTIVE PRN (00:29)
[2020-06-10] MEDS: CEFEPIME 2,000 MG in SYRINGE 7.5 ML IV SCH (01:51)
[2020-06-10] MEDS ORDERED: LACTULOSE SYRUP 20 GM/30 ML UDC PO STA (01:55)
[2020-06-10] MEDS ORDERED: OLANZapine 10 MG/2.1 ML SDV IM PRN (02:07)
[2020-06-10] MEDS ORDERED: OLANZapine 10 MG/2.1 ML SDV IM STA (02:37)
[2020-06-10] MEDS: SODIUM CHLORIDE 0.9% 1000ML 1,000 ML IV SCH (03:09)
[2020-06-10] MEDS: ACETAMINOPHEN 325 MG TAB PO PRN ×2 (03:27→14:32)
[2020-06-10] MEDS ORDERED: METOPROLOL TARTRATE 50 MG TAB PO SCH (04:30)
[2020-06-10] MEDS: TRAMADOL HCL 50 MG TABLET PO PRN ×3 (04:49→15:46)
[2020-06-10] MEDS: HYDROmorphone INJ 0.5 MG/0.5 ML SYR IV PRN (05:59)
[2020-06-10] MEDS: LEVOTHYROXINE SODIUM 100 MCG TABLET PO SCH (06:06)
[2020-06-10] MEDS: POLYETHYLENE (MIRALAX) 17 GM PACK PO SCH ×5 (06:07→21:29)
[2020-06-10 07:15] LABS: Basophils # (auto) 0.01 K/uL (0-0.2); Basophils % (auto) 0.1 %; Eosinophils # (auto) 0.09 K/uL (0-0.5); Eosinophils % (auto) 0.9 %; Hematocrit (blood only) 31.8 % (37-47); Hemoglobin 10.4 g/dL (12.0-16.0); Immature Granulocytes # (auto) 0.03 K/uL (0.00-0.02); Immature Granulocytes % (auto) 0.3 %; Lymphocytes # (auto) 1.69 K/uL (1.2-3.4); Lymphocytes % (auto) 16.4 %; Mean Corpuscular Hemoglobin 28.3 pg (25-34); Mean Corpuscular Hgb Conc 32.7 g/dL (32-36); Mean Corpuscular Volume 86.4 fL (80-100); Monocytes # (auto) 1.08 K/uL (0.11-0.59); Monocytes % (auto) 10.5 %; Neutrophils # (auto) 7.41 K/uL (1.4-6.5); Neutrophils % (auto) 71.8 %; Platelet Count 245 K/uL (130-400); Red Blood Count 3.68 M/uL (4.2-5.4); White Blood Count 10.31 K/uL (4.8-10.8)
--- NOTE | 2020-06-10 07:30 | XRay Report ---
SINGLE VIEW CHEST CLINICAL HISTORY: Hypoxia. FINDINGS: An AP, portable, upright chest radiograph is compared to study dated 06/03/2020 and correlate d with chest CT dated 12/01/2019. The examination is degraded by portable technique, apical lordotic po sitioning, and patient rotation. The heart is enlarged noting atherosclerotic calcification of the th oracic aorta. There is prominence of the pulmonary vascular. Scarring/atelectasis is noted at the franky g bases. No airspace consolidation or large pleural effusion is identified. No pneumothorax is seen. The skeletal structures are osteopenic. There are numerous healed right-sided rib fractures. Fusion h ardware is noted in the lower cervical spine. Advanced degenerative change is seen in the shoulders a nd thoracic spine. IMPRESSION: 1. Cardiomegaly with prominence of the pulmonary vasculature. Correlate clinically for evidence of mi ld congestive failure. 2. No airspace consolidation or large pleural effusion is seen. ACT 112: Negative or not required by law. Electronically signed by: Mello Glasgow M.D. 06/10/2020 7:29 AM
[2020-06-10 07:35] LABS: BUN Creatinine Ratio 27.4 (10-20); Calcium 8.2 mg/dl (8.5-10.1); Creatinine Clr Calc Pharmacy 46.3 ml/min; Est GFR (African American) 63.7; Magnesium 2.6 mg/dl (1.8-2.4); Phosphorus 3.2 mg/dl (2.5-4.9); Potassium 4.6 mmol/L (3.5-5.1)
--- NOTE | 2020-06-10 07:47 | Anesthesiology Progress Note ---
Date of Service June 10, 2020 Anesthesia Post Procedure Vital Signs Vital Signs: Temp Pulse Pulse Pulse Resp BP BP 06/10/20 07:21 37.1 C 76 18 110/68 06/10/20 03:39 36.9 C 113 H 20 133/76 06/10/20 03:15 87 06/09/20 22:43 36.8 C 87 18 128/67 06/09/20 22:04 65 06/09/20 19:33 36.6 C 85 137/75 06/09/20 18:09 36.3 C L 83 20 143/71 H 06/09/20 17:11 36.3 C L 70 19 159/82 H 06/09/20 16:43 36.3 C L 66 19 162/77 H 06/09/20 16:21 36.4 C L 66 16 145/74 H 06/09/20 16:05 36.6 C 64 18 151/58 H 06/09/20 15:55 64 18 158/61 H 06/09/20 15:45 36.1 C L 56 L 18 168/61 H 06/09/20 15:35 56 L 18 153/52 H 06/09/20 15:25 36.9 C 57 L 18 165/52 H 06/09/20 12:50 36.7 C 66 20 166/81 H 06/09/20 11:24 36.9 C 67 18 179/71 H Pulse Ox 06/10/20 07:21 98 06/10/20 03:39 94 06/10/20 03:15 06/09/20 22:43 91 06/09/20 22:04 06/09/20 19:33 98 06/09/20 18:09 97 06/09/20 17:11 100 06/09/20 16:43 98 06/09/20 16:21 97 06/09/20 16:05 98 06/09/20 15:55 99 06/09/20 15:45 97 06/09/20 15:35 100 06/09/20 15:25 100 06/09/20 12:50 97 06/09/20 11:24 97 Pain Intensity Left Other: Pain Intensity: 6 Left Lower Back: Pain Intensity: 10 Left Hip: Pain Intensity: 10 Neck: Pain Intensity: 10 Notes Mental Status: alert / awake / arousable and participated in evaluation Patient Amnestic to Procedure: Yes Nausea / Vomiting: adequately controlled Pain: adequately controlled Airway Patency, RR, SpO2: stable & adequate BP & HR: stable & adequate Hydration State: stable & adequate Anesthetic Complications: no major complications apparent and Pt Satisfied with anesthetic care
--- NOTE | 2020-06-10 09:02 | Hospitalist Progress Note ---
Date of Service June 10, 2020 Assessment & Plan (1) Left hip pain: This is a 75-year-old female with significant PMH of CAD, chronic diastolic CHF, T2DM, HTN, HLD, CKD stage III, chronic narcotic use, DDD, hypothyroidism who presents to ED secondary to intractable left hip and low back pain x2 weeks. Moderate left hip pain secondary to osteoarthritis Referred pain in inner thigh of the left side could be secondary to left hip osteoarthritis CT of the hip did show moderate osteoarthritis without any fracture Left hip pain with movement of the hip joints especially external and internal rotation with radiation of pain to the inner thigh orthopedic surgery consulted Has moderate to severe osteoarthritis of the left hip with greater trochanteric bursitis Appreciate Ortho input and recommendation Recommended NSAID use(maybe harmful with history of diastolic CHF and CAD), lidocaine and physical therapy on top of a small dose of narcotics pain medication Recommended left hip injection with steroid as an outpatient Left hip pain is worsened that she can hardly participate in physical therapy Ortho service contacted for possible injection/ no inpt injections, need to plan for outpt (2) Low back pain: Has lumbar radiculopathy as evidenced by MRI of the lumbar spine No bladder and/or bowel problems No significant weakness of the left lower extremity Appreciate orthospine input and recommendation Now s/p L3-L4 decompression and fusion by Dr. Carreno 06/09, tolerated procedure well, except down at night patient became confused and less responsive, now resolved Discussed any further preop recommendations with cardiology (3) CAD (coronary artery disease): Patient denies chest pain or shortness of breath Continue ASA, statin, Imdur, metoprolol, lisinopril Denies any symptoms (4) Chronic diastolic CHF (congestive heart failure): euvolemic, per pt baseline weight ~ 200lb continue lisinopril, metoprolol, imdur, will hold lasix this AM prior to surgery daily weights, strict I and O baseline Cr 1.2 some elevation in BUN monitor renal fxn, helld Lasix in the morning before surgery, will resume now No signs of fluid overload (5) Nonspecific ST-T wave electrocardiographic changes: pt with inferior t wave inversions, new from prior ecg 11/2019 pt denies CP/SOB appears stable and euvolemic from cardiac standpoint - repeated ecg and obtained echo - discussed with cardiology for preop eval (6) HTN (hypertension): blood pressure stable continue metoprolol, lisinopril, Imdur Blood pressure remains lower side of normal (7) DM type 2 (diabetes mellitus, type 2): a1c 7.8 on Levemir/novolog, bydureon as outpt consult glycemic pharmacy, appreciate their management (8) Hypothyroidism: continue levothyroxine (9) Chronic pain: pt on chronic percocet, lyrica confirmed via pdmd (10) CKD (chronic kidney disease) stage 3, GFR 30-59 ml/min: baseline cr 1.5 bun/cr 40s and 1.2 avoid nephrotoxic agents, monitor bmp-creatinine has been normalized (11) HLD (hyperlipidemia): continue statin (12) DVT prophylaxis: Lovenox 30 mg daily Disposition: Admit to medical telemetry due to EKG change, consult case management patient may need rehab Follow-up: PCP Dr. Boland upon discharge If she is discharged without inpatient joint injection, she will need to have a follow-up appointment with Dr. Alvarez for the same Admission and Anticipated Discharge Date Admission Date: June 03, 2020 Subjective Overnight armature inspector was contacted as patient was not responsive at night after surgery. She received Narcan. UA obtained and concerning for possible UTI, cefepime started by armature inspector. Ammonia level also mildly elevated at 40s. Currently patient is sitting up in a chair, she is alert and oriented answering questions appropriately. She denies any fevers or chills, chest pain or shortness of breath, abdominal pain, nausea or vomiting. She states that her left hip pain feels much better now. However she still feels weak and achy. Review of Systems Review of Systems: All systems reviewed & are unremarkable except as noted in HPI & below Constitutional: no fever and no chills Respiratory: no cough and no dyspnea Cardiovascular: no chest pain and no palpitations Gastrointestinal: no abdominal pain, no nausea and no vomiting Physical Exam Physical Exam: Physical Exam: Elderly obese female, sitting up in a chair, in no acute distress, does complain of lower back pain and left hip pain Constitutional: well developed, well nourished, + mild acute distress (Moderate left hip pain), + ill appearing and + obese Eyes: PERRL, conjunctivae normal, anicteric sclerae ENMT: external ear and nose normal, oropharynx normal Neck: trachea midline Respiratory: normal respiratory effort; no respiratory distress Auscultation: lungs clear to auscultation bilaterally, somewhat diminished breath sounds Cardiovascular: Rate/Rhythm: regular rate and regular rhythm Heart Sounds: no murmur Gastrointestinal (Abdomen): Inspection/Auscultation: abdomen normal to inspection; abdomen not distended Percussion/Palpation: abdomen soft, obese Musculoskeletal: Any movement of the left hip produces pain the hip joint and also referred pain upper inner thigh. Tenderness over greater trochanteric bursa, Low back pain tenderness to palp. Neurologic: moves all extremities and + focal motor deficit Alert, awake and oriented x3, answers questions appropriately Results & Data Results & Data ([facility]) Vital Signs (Past 12 Hours) Vital Signs Temp Pulse Pulse Resp BP BP Pulse Ox 06/10/20 08:07 92 06/10/20 07:21 37.1 C 76 18 110/68 98 06/10/20 03:39 36.9 C 113 H 20 133/76 94 06/10/20 03:15 87 06/09/20 22:43 36.8 C 87 18 128/67 91 06/09/20 22:04 65 Laboratory Results 06/10/20 06/10/20 06/10/20 Range/Units 07:37 06:48 06:48 WBC (4.8-10.8) K/uL RBC (4.2-5.4) M/uL Hgb (12.0-16.0) g/dL Hct (37-47) % MCV (80-100) fL MCH (25-34) pg MCHC (32-36) g/dL RDW Std Deviation (36.4-46.3) fL RDW Coeff of Burak (11.5-14.5) % Plt Count (130-400) K/uL MPV (7.4-10.4) fL Immature Gran % (Auto) % Neut % (Auto) % Lymph % (Auto) % [place] % (Auto) % Eos % (Auto) % Baso % (Auto) % Neut # (Auto) (1.4-6.5) K/uL Lymph # (Auto) (1.2-3.4) K/uL [place] # (Auto) (0.11-0.59) K/uL Eos # (Auto) (0-0.5) K/uL Baso # (Auto) (0-0.2) K/uL Immature Gran # (Auto) (0.00-0.02) K/uL APTT (21.0-31.0) Seconds PTT Ratio ABG pH (7.35-7.45) ABG pCO2 (35-46) mmHg ABG pO2 (80-95) mmHg ABG HCO3 (19-24) mmol/L ABG O2 Saturation (90-95) % ABG Base Excess (-9-1.8) mEq/L Jose Test (Pos) Barometric Pressure mm/Hg Oxygen Given Sodium 143 (136-145) mmol/L Potassium 4.6 (3.5-5.1) mmol/L Chloride 111 H (98-107) mmol/L Carbon Dioxide 26 (21-32) mmol/L Anion Gap 6.0 (3-11) BUN 27 H (7-18) mg/dl Creatinine 0.99 (0.6-1.2) mg/dl Est Cr Clr Drug Dosing 46.3 ml/min Est GFR ( Amer) 63.7 Est GFR (Non-Af Amer) 55.0 BUN/Creatinine Ratio 27.4 H (10-20) Glucose 135 H (70-99) mg/dl POC Glucose 159 H (70-99) mg/dl Calcium 8.2 L (8.5-10.1) mg/dl Phosphorus 3.2 (2.5-4.9) mg/dl Magnesium 2.6 H (1.8-2.4) mg/dl Total Bilirubin (0.2-1) mg/dl Direct Bilirubin (0-0.2) mg/dl AST (15-37) U/L ALT (12-78) U/L Alkaline Phosphatase (45-117) U/L Ammonia 36.8 H (11-32) umol/L Total Protein (6.4-8.2) gm/dl Albumin (3.4-5.0) gm/dl Urine Color Urine Appearance (Clear) Urine pH (4.5-7.5) Ur Specific [place] (1.000-1.030) Urine Protein (Negative) Urine Glucose (UA) (Negative) Urine Ketones (Negative) Urine Blood (Negative) Urine Nitrite (Negative) Urine Bilirubin (Negative) Urine Urobilinogen (Negative) Ur Leukocyte Esterase (Negative) Urine WBC (Auto) (0-5) /hpf Urine RBC (Auto) (0-4) /hpf U Hyaline Cast (Auto) (0-5) /lpf U Epithel Cells (Auto) (0-5) /lpf Urine Bacteria (Auto) (Negative) 06/10/20 06/09/20 06/09/20 Range/Units 06:48 23:30 22:16 WBC 10.31 (4.8-10.8) K/uL RBC 3.68 L (4.2-5.4) M/uL Hgb 10.4 L (12.0-16.0) g/dL Hct 31.8 L (37-47) % MCV 86.4 (80-100) fL MCH 28.3 (25-34) pg MCHC 32.7 (32-36) g/dL RDW Std Deviation 44.0 (36.4-46.3) fL RDW Coeff of Burak 14.0 (11.5-14.5) % Plt Count 245 (130-400) K/uL MPV 9.0 (7.4-10.4) fL Immature Gran % (Auto) 0.3 % Neut % (Auto) 71.8 % Lymph % (Auto) 16.4 % [place] % (Auto) 10.5 % Eos % (Auto) 0.9 % Baso % (Auto) 0.1 % Neut # (Auto) 7.41 H (1.4-6.5) K/uL Lymph # (Auto) 1.69 (1.2-3.4) K/uL [place] # (Auto) 1.08 H (0.11-0.59) K/uL Eos # (Auto) 0.09 (0-0.5) K/uL Baso # (Auto) 0.01 (0-0.2) K/uL Immature Gran # (Auto) 0.03 H (0.00-0.02) K/uL APTT (21.0-31.0) Seconds PTT Ratio ABG pH (7.35-7.45) ABG pCO2 (35-46) mmHg ABG pO2 (80-95) mmHg ABG HCO3 (19-24) mmol/L ABG O2 Saturation (90-95) % ABG Base Excess (-9-1.8) mEq/L Jose Test (Pos) Barometric Pressure mm/Hg Oxygen Given Sodium (136-145) mmol/L Potassium (3.5-5.1) mmol/L Chloride (98-107) mmol/L Carbon Dioxide (21-32) mmol/L Anion Gap (3-11) BUN (7-18) mg/dl Creatinine (0.6-1.2) mg/dl Est Cr Clr Drug Dosing ml/min Est GFR ( Amer) Est GFR (Non-Af Amer) BUN/Creatinine Ratio (10-20) Glucose (70-99) mg/dl POC Glucose (70-99) mg/dl Calcium (8.5-10.1) mg/dl Phosphorus (2.5-4.9) mg/dl Magnesium (1.8-2.4) mg/dl Total Bilirubin 0.3 (0.2-1) mg/dl Direct Bilirubin < 0.1 (0-0.2) mg/dl AST 18 (15-37) U/L ALT 19 (12-78) U/L Alkaline Phosphatase 61 (45-117) U/L Ammonia (11-32) umol/L Total Protein 6.4 (6.4-8.2) gm/dl Albumin 3.2 L (3.4-5.0) gm/dl Urine Color Yellow Urine Appearance Clear (Clear) Urine pH 6.0 (4.5-7.5) Ur Specific [place] 1.016 (1.000-1.030) Urine Protein Negative (Negative) Urine Glucose (UA) Negative (Negative) Urine Ketones Negative (Negative) Urine Blood Negative (Negative) Urine Nitrite Positive A (Negative) Urine Bilirubin Negative (Negative) Urine Urobilinogen Negative (Negative) Ur Leukocyte Esterase 2+ H (Negative) Urine WBC (Auto) >30 H (0-5) /hpf Urine RBC (Auto) 0-4 (0-4) /hpf U Hyaline Cast (Auto) 1-5 (0-5) /lpf U Epithel Cells (Auto) 5-10 H (0-5) /lpf Urine Bacteria (Auto) Negative (Negative) 06/09/20 06/09/20 06/09/20 Range/Units 21:12 21:12 21:12 WBC (4.8-10.8) K/uL RBC (4.2-5.4) M/uL Hgb (12.0-16.0) g/dL Hct (37-47) % MCV (80-100) fL MCH (25-34) pg MCHC (32-36) g/dL RDW Std Deviation (36.4-46.3) fL RDW Coeff of Burak (11.5-14.5) % Plt Count (130-400) K/uL MPV (7.4-10.4) fL Immature Gran % (Auto) % Neut % (Auto) % Lymph % (Auto) % [place] % (Auto) % Eos % (Auto) % Baso % (Auto) % Neut # (Auto) (1.4-6.5) K/uL Lymph # (Auto) (1.2-3.4) K/uL [place] # (Auto) (0.11-0.59) K/uL Eos # (Auto) (0-0.5) K/uL Baso # (Auto) (0-0.2) K/uL Immature Gran # (Auto) (0.00-0.02) K/uL APTT 24.8 (21.0-31.0) Seconds PTT Ratio 0.9 ABG pH 7.47 H (7.35-7.45) ABG pCO2 38 (35-46) mmHg ABG pO2 94 (80-95) mmHg ABG HCO3 27 H (19-24) mmol/L ABG O2 Saturation 97.6 H (90-95) % ABG Base Excess 3.2 H (-9-1.8) mEq/L Jose Test Pos (Pos) Barometric Pressure 733.9 mm/Hg Oxygen Given 2L Sodium (136-145) mmol/L Potassium (3.5-5.1) mmol/L Chloride (98-107) mmol/L Carbon Dioxide (21-32) mmol/L Anion Gap (3-11) BUN (7-18) mg/dl Creatinine (0.6-1.2) mg/dl Est Cr Clr Drug Dosing ml/min Est GFR ( Amer) Est GFR (Non-Af Amer) BUN/Creatinine Ratio (10-20) Glucose (70-99) mg/dl POC Glucose (70-99) mg/dl Calcium (8.5-10.1) mg/dl Phosphorus (2.5-4.9) mg/dl Magnesium (1.8-2.4) mg/dl Total Bilirubin (0.2-1) mg/dl Direct Bilirubin (0-0.2) mg/dl AST (15-37) U/L ALT (12-78) U/L Alkaline Phosphatase (45-117) U/L Ammonia 42.4 H (11-32) umol/L Total Protein (6.4-8.2) gm/dl Albumin (3.4-5.0) gm/dl Urine Color Urine Appearance (Clear) Urine pH (4.5-7.5) Ur Specific [place] (1.000-1.030) Urine Protein (Negative) Urine Glucose (UA) (Negative) Urine Ketones (Negative) Urine Blood (Negative) Urine Nitrite (Negative) Urine Bilirubin (Negative) Urine Urobilinogen (Negative) Ur Leukocyte Esterase (Negative) Urine WBC (Auto) (0-5) /hpf Urine RBC (Auto) (0-4) /hpf U Hyaline Cast (Auto) (0-5) /lpf U Epithel Cells (Auto) (0-5) /lpf Urine Bacteria (Auto) (Negative) 06/09/20 06/09/20 06/09/20 Range/Units 21:12 20:18 16:33 WBC (4.8-10.8) K/uL RBC (4.2-5.4) M/uL Hgb (12.0-16.0) g/dL Hct (37-47) % MCV (80-100) fL MCH (25-34) pg MCHC (32-36) g/dL RDW Std Deviation (36.4-46.3) fL RDW Coeff of Burak (11.5-14.5) % Plt Count (130-400) K/uL MPV (7.4-10.4) fL Immature Gran % (Auto) % Neut % (Auto) % Lymph % (Auto) % [place] % (Auto) % Eos % (Auto) % Baso % (Auto) % Neut # (Auto) (1.4-6.5) K/uL Lymph # (Auto) (1.2-3.4) K/uL [place] # (Auto) (0.11-0.59) K/uL Eos # (Auto) (0-0.5) K/uL Baso # (Auto) (0-0.2) K/uL Immature Gran # (Auto) (0.00-0.02) K/uL APTT (21.0-31.0) Seconds PTT Ratio ABG pH (7.35-7.45) ABG pCO2 (35-46) mmHg ABG pO2 (80-95) mmHg ABG HCO3 (19-24) mmol/L ABG O2 Saturation (90-95) % ABG Base Excess (-9-1.8) mEq/L Jose Test (Pos) Barometric Pressure mm/Hg Oxygen Given Sodium 139 (136-145) mmol/L Potassium 4.8 (3.5-5.1) mmol/L Chloride 106 (98-107) mmol/L Carbon Dioxide 28 (21-32) mmol/L Anion Gap 4.0 (3-11) BUN 32 H (7-18) mg/dl Creatinine 1.24 H (0.6-1.2) mg/dl Est Cr Clr Drug Dosing 36.9 ml/min Est GFR ( Amer) 48.5 Est GFR (Non-Af Amer) 41.9 BUN/Creatinine Ratio 26.0 H (10-20) Glucose 171 H (70-99) mg/dl POC Glucose 231 H 160 H (70-99) mg/dl Calcium 8.9 (8.5-10.1) mg/dl Phosphorus (2.5-4.9) mg/dl Magnesium 2.7 H (1.8-2.4) mg/dl Total Bilirubin (0.2-1) mg/dl Direct Bilirubin (0-0.2) mg/dl AST (15-37) U/L ALT (12-78) U/L Alkaline Phosphatase (45-117) U/L Ammonia (11-32) umol/L Total Protein (6.4-8.2) gm/dl Albumin (3.4-5.0) gm/dl Urine Color Urine Appearance (Clear) Urine pH (4.5-7.5) Ur Specific [place] (1.000-1.030) Urine Protein (Negative) Urine Glucose (UA) (Negative) Urine Ketones (Negative) Urine Blood (Negative) Urine Nitrite (Negative) Urine Bilirubin (Negative) Urine Urobilinogen (Negative) Ur Leukocyte Esterase (Negative) Urine WBC (Auto) (0-5) /hpf Urine RBC (Auto) (0-4) /hpf U Hyaline Cast (Auto) (0-5) /lpf U Epithel Cells (Auto) (0-5) /lpf Urine Bacteria (Auto) (Negative) 06/09/20 06/09/20 Range/Units 15:28 11:46 WBC (4.8-10.8) K/uL RBC (4.2-5.4) M/uL Hgb (12.0-16.0) g/dL Hct (37-47) % MCV (80-100) fL MCH (25-34) pg MCHC (32-36) g/dL RDW Std Deviation (36.4-46.3) fL RDW Coeff of Burak (11.5-14.5) % Plt Count (130-400) K/uL MPV (7.4-10.4) fL Immature Gran % (Auto) % Neut % (Auto) % Lymph % (Auto) % [place] % (Auto) % Eos % (Auto) % Baso % (Auto) % Neut # (Auto) (1.4-6.5) K/uL Lymph # (Auto) (1.2-3.4) K/uL [place] # (Auto) (0.11-0.59) K/uL Eos # (Auto) (0-0.5) K/uL Baso # (Auto) (0-0.2) K/uL Immature Gran # (Auto) (0.00-0.02) K/uL APTT (21.0-31.0) Seconds PTT Ratio ABG pH (7.35-7.45) ABG pCO2 (35-46) mmHg ABG pO2 (80-95) mmHg ABG HCO3 (19-24) mmol/L ABG O2 Saturation (90-95) % ABG Base Excess (-9-1.8) mEq/L Jose Test (Pos) Barometric Pressure mm/Hg Oxygen Given Sodium (136-145) mmol/L Potassium (3.5-5.1) mmol/L Chloride (98-107) mmol/L Carbon Dioxide (21-32) mmol/L Anion Gap (3-11) BUN (7-18) mg/dl Creatinine (0.6-1.2) mg/dl Est Cr Clr Drug Dosing ml/min Est GFR ( Amer) Est GFR (Non-Af Amer) BUN/Creatinine Ratio (10-20) Glucose (70-99) mg/dl POC Glucose 154 H 158 H (70-99) mg/dl Calcium (8.5-10.1) mg/dl Phosphorus (2.5-4.9) mg/dl Magnesium (1.8-2.4) mg/dl Total Bilirubin (0.2-1) mg/dl Direct Bilirubin (0-0.2) mg/dl AST (15-37) U/L ALT (12-78) U/L Alkaline Phosphatase (45-117) U/L Ammonia (11-32) umol/L Total Protein (6.4-8.2) gm/dl Albumin (3.4-5.0) gm/dl Urine Color Urine Appearance (Clear) Urine pH (4.5-7.5) Ur Specific [place] (1.000-1.030) Urine Protein (Negative) Urine Glucose (UA) (Negative) Urine Ketones (Negative) Urine Blood (Negative) Urine Nitrite (Negative) Urine Bilirubin (Negative) Urine Urobilinogen (Negative) Ur Leukocyte Esterase (Negative) Urine WBC (Auto) (0-5) /hpf Urine RBC (Auto) (0-4) /hpf U Hyaline Cast (Auto) (0-5) /lpf U Epithel Cells (Auto) (0-5) /lpf Urine Bacteria (Auto) (Negative) Medications Administered Current Inpatient Medications Acetaminophen (Acetaminophen 325 Mg Tab) 650 mg PO Q4H PRN PRN Reason: pain/fever Stop: 07/03/20 13:08 Last Admin: 06/10/20 03:27 Dose: 650 mg Documented by: Acetaminophen (Acetaminophen 500 Mg Tab) 1,000 mg PO Q8H PRN PRN Reason: MILD Pain Scale 1,2,3 & Pre PT Stop: 07/09/20 16:19 Al Hydrox/Mg Hydrox/Simethicone (Maalox) 30 ml PO Q6H PRN PRN Reason: Dyspepsia Stop: 07/03/20 13:08 Al Hydrox/Mg Hydrox/Simethicone (Aluminum/Magnesium Susp 30 Ml Udc) 30 ml PO Q6H PRN PRN Reason: Dyspepsia Stop: 07/09/20 16:19 Aspirin (Ecotrin Ectab) 81 mg PO QAM [place] Stop: 07/04/20 08:59 Last Admin: 06/09/20 09:27 Dose: 81 mg Documented by: Bisacodyl (Bisacodyl 10 Mg Supp) 10 mg PA DAILY PRN PRN Reason: Constipation Stop: 07/09/20 16:19 Calcium Carbonate (Tums) 500 mg PO TID PRN PRN Reason: Indigestion Stop: 07/05/20 00:00 Last Admin: 06/05/20 00:34 Dose: 500 mg Documented by: Dextrose (Dextrose 50%) 25 - 50 ml IV UD PRN; Protocol PRN Reason: Hypoglycemia Protocol Stop: 07/03/20 16:36 Diclofenac Sodium (Voltaren 1% Top) 2 gm EXT BID [facility] Stop: 07/04/20 20:59 Last Admin: 06/09/20 21:16 Dose: Not Given Documented by: Diphenhydramine HCl (Diphenhydramine Hcl 25 Mg Cap) 25 mg PO Q6H PRN PRN Reason: Allergic Rhinitis/Insomnia Stop: 07/09/20 16:19 Famotidine (Famotidine 20 Mg Tab) 20 mg PO Q12H PRN PRN Reason: Dyspepsia Stop: 07/09/20 16:19 Fluticasone Propionate (Flonase) 1 sprays BLAKE DAILY PRN PRN Reason: Allergy Symptoms Stop: 07/03/20 16:59 Glucagon (Glucagen) 1 mg SQ UD PRN; Protocol PRN Reason: Hypoglycemia Protocol Stop: 07/03/20 16:36 Glucose (Dex4 Glucose) 4 - 8 tabs PO UD PRN; Protocol PRN Reason: Hypoglycemia Protocol Stop: 07/03/20 16:36 Glucose (Glucose 40%) 15 - 30 gm PO UD PRN; Protocol PRN Reason: Hypoglycemia Protocol Stop: 07/03/20 16:36 Hydromorphone HCl (Hydromorphone Inj 0.5 Mg/0.5 Ml Syr) 0.25 mg IV Q4H PRN PRN Reason: Pain Stop: 06/23/20 23:52 Last Admin: 06/10/20 05:59 Dose: 0.25 mg Documented by: Hydroxyzine HCl (Hydroxyzine Hcl 25 Mg Tab) 25 mg PO Q8H PRN PRN Reason: Anxiety Stop: 07/09/20 16:19 Acetaminophen (Ofirmev) 1,000 mg in 100 mls @ 400 mls/hr IV Q8H PRN PRN Reason: MILD Pain Rating 1,2,3 Stop: 06/10/20 16:19 Last Infusion: 06/09/20 20:51 Dose: Infused Documented by: Promethazine HCl 12.5 mg/ (Sodium Chloride) 50.5 mls @ 204 mls/hr IV Q6H PRN PRN Reason: Nausea &/or Vomiting Stop: 07/09/20 16:19 Lorazepam (Ativan) 0.5 mg in 1 mls @ 0.5 mls/min IV Q8H PRN PRN Reason: Sedation/Anxiety Stop: 07/09/20 16:19 Cefepime HCl 2,000 mg/ Syringe 20 mls @ 5 mls/min IV Q24H [facility]; Protocol Stop: 06/20/20 01:29 Last Admin: 06/10/20 01:51 Dose: 5 mls/min Documented by: Influenza Virus Vaccine Quadrival (Do Not Administer Flu Vaccine) 1 ea N/A PRN PRN PRN Reason: Notification Stop: 07/09/20 16:19 Insulin Aspart (Novolog Flexpen) 0 units SC ACHS [facility]; Protocol Stop: 07/03/20 17:04 Last Admin: 06/09/20 21:19 Dose: 5 units Documented by: Insulin Detemir (Levemir Flextouch) 28 units SC BID [facility]; Protocol Stop: 07/05/20 08:59 Last Admin: 06/09/20 21:18 Dose: 28 units Documented by: Isosorbide Mononitrate (Im[facility]ur Extended Rel) [facility] Stop: 07/04/20 08:59 Last Admin: 06/09/20 09:27 Dose: 30 mg Documented by: Levothyroxine Sodium (Synthroid) 100 mcg PO DAILYBB [facility] Stop: 07/04/20 06:29 Last Admin: 06/10/20 06:06 Dose: 100 mcg Documented by: Lidocaine (Lidoderm 5%) 1 [facility] Stop: 07/04/20 08:59 Last Admin: 06/09/20 09:26 Dose: 1 patch Documented by: Lisinopril (Lisinopril 20 Mg Tab) 20 mg PO [facility] Stop: 07/04/20 08:59 Last Admin: 06/09/20 09:27 Dose: 20 mg Documented by: Loratadine (Claritin) [facility] Stop: 07/04/20 08:59 Last Admin: 06/09/20 09:27 Dose: 10 mg Documented by: Lorazepam (Lorazepam 0.5 Mg Tab) 0.5 mg PO Q8H PRN PRN Reason: Sedation/Anxiety Stop: 07/09/20 16:19 Magnesium Hydroxide (Milk Of Magnesia) 30 ml PO Q6H PRN PRN Reason: Constipation Stop: 07/03/20 13:08 Last Admin: 06/08/20 18:04 Dose: 30 ml Documented by: Magnesium Hydroxide (Magnesium Hydroxide Susp 30 Ml Udc) 30 ml PO DAILY PRN PRN Reason: Constipation Stop: 07/09/20 16:19 Metoclopramide HCl (Metoclopramide Hcl Inj 5 Mg/Ml 2 Ml Vial) 10 mg IV Q6H PRN PRN Reason: Nausea &/or Vomiting Stop: 07/09/20 16:19 Metoprolol Tartrate (Lopressor) 25 mg PO QPM [facility] Stop: 07/03/20 20:59 Last Admin: 06/09/20 21:14 Dose: Not Given Documented by: Metoprolol Tartrate (Metoprolol Tartrate 50 Mg Tab) 50 mg PO [facility] Stop: 07/10/20 08:59 Miscellaneous (Carbohydrates For Hypoglycemia) 15 - 30 gm PO UD PRN PRN Reason: Hypoglycemia Protocol Stop: 07/03/20 16:36 Last Admin: 06/04/20 16:39 Dose: 15 gm Documented by: Miscellaneous (Remove Lidoderm Patch) 1 ea N/A DAILY@2100 [facility] Stop: 07/03/20 20:59 Last Admin: 06/09/20 21:20 Dose: Not Given Documented by: Miscellaneous Information (Consult Glycemic Management Pharmacy) 1 ea N/A UD PRN; Protocol PRN Reason: Consult Stop: 07/03/20 16:56 Miscellaneous Information (Cefepime Consult Active) 1 ea N/A UD PRN PRN Reason: Consult Stop: 07/10/20 00:28 Montelukast Sodium (Singulair) 10 mg PO HS [place] Stop: 07/03/20 20:59 Last Admin: 06/09/20 21:15 Dose: Not Given Documented by: Naloxone HCl (Naloxone Hcl 0.4 Mg/1 Ml Vial/Carp) 0.1 mg IV Q5M PRN; Protocol PRN Reason: Oversedation/Resp Depression Stop: 07/09/20 16:19 Olanzapine (Olanzapine 10 Mg/2.1 Ml Sdv) 2.5 mg IM Q4H PRN PRN Reason: Anxiety/Agitation Stop: 07/10/20 02:06 Ondansetron HCl (Zofran) 4 mg IV Q6H PRN PRN Reason: Nausea Stop: 07/03/20 13:08 Last Admin: 06/05/20 09:39 Dose: 4 mg Documented by: Ondansetron HCl (Ondansetron Inj 2 Mg/Ml 2 Ml Vial) 4 mg IV Q6H PRN PRN Reason: Nausea &/or Vomiting Stop: 07/09/20 16:19 Ondansetron HCl (Ondansetron 4 Mg Od Tab) 4 mg PO Q6H PRN PRN Reason: Nausea Stop: 07/09/20 16:19 Oxycodone HCl (Oxycodone Hcl Ir 5 Mg Tab (Immediate Release)) 5 mg PO Q4H PRN PRN Reason: Pain Stop: 06/23/20 23:52 Oxycodone/Acetaminophen (Oxycodone/Acetaminophen 10-325 Tab) 1 tab PO QID PRN PRN Reason: Pain Stop: 06/17/20 16:59 Last Admin: 06/09/20 11:48 Dose: 1 tab Documented by: Pantoprazole Sodium (Protonix) 40 mg PO QAM [facility] Stop: 07/04/20 08:59 Last Admin: 06/09/20 09:27 Dose: 40 mg Documented by: Pneumococcal Polyvalent Vaccine (Do Not Administer Pneumococcal Vaccine) 1 ea N/A PRN PRN PRN Reason: Notification Stop: 07/09/20 16:19 Polyethylene Glycol (Miralax Powder Packet) 17 gm PO DAILY PRN PRN Reason: Constipation Stop: 07/03/20 16:59 Polyethylene Glycol (Polyethylene (Miralax) 17 Gm Pack) 17 gm PO BID [facility] Stop: 07/09/20 20:59 Last Admin: 06/09/20 21:14 Dose: Not Given Documented by: Polyethylene Glycol (Polyethylene (Miralax) 17 Gm Pack) 17 gm PO Q6 [facility] Stop: 07/10/20 05:59 Last Admin: 06/10/20 06:07 Dose: 17 gm Documented by: Pregabalin (Pregabalin 100 Mg Cap) 200 mg PO TID [facility] Stop: 07/06/20 20:59 Last Admin: 06/09/20 17:54 Dose: Not Given Documented by: Rosuvastatin Calcium (Crestor) 20 mg PO HS [facility] Stop: 07/03/20 20:59 Last Admin: 06/09/20 21:14 Dose: Not Given Documented by: Senna/Docusate Sodium (Senokot S) 1 tab PO BID [facility] Stop: 07/03/20 20:59 Last Admin: 06/09/20 21:14 Dose: Not Given Documented by: Senna/Docusate Sodium (Docusate Sodium/Senna 50/8.6mg Tab) 2 tab PO HS [facility] Stop: 07/09/20 20:59 Last Admin: 06/09/20 21:15 Dose: Not Given Documented by: Sodium Biphosphate/Sodium Phosphate (Sod Phosphate/Sod Biphosphate Enema 132 Ml Btl) 132 ml PA ONE PRN PRN Reason: Constipation Stop: 07/09/20 16:19 Tramadol HCl (Tramadol Hcl 50 Mg Tablet) 25 - 50 mg PO Q4H PRN PRN Reason: Moderate-Severe Pain & Pre PT Stop: 07/09/20 16:19 Last Admin: 06/10/20 04:49 Dose: 50 mg Documented by: (1) Low back pain Back pain laterality: midline Chronicity: acute Sciatica presence: without sciatica Qualified Code(s): M54.5 - Low back pain
[2020-06-10] MEDS: ASPIRIN 81 MG ECTAB PO SCH (09:47)
[2020-06-10] MEDS: METOPROLOL TARTRATE 50 MG TAB PO SCH (09:47)
[2020-06-10] MEDS: LORATADINE 10 MG TAB PO SCH (09:47)
[2020-06-10] MEDS: ISOSORBIDE MONO EXTENDED REL 30 MG TABCR PO SCH (09:47)
[2020-06-10] MEDS: PANTOprazole 40 MG TAB PO SCH (09:47)
[2020-06-10] MEDS: DOCUSATE SODIUM/SENNA 50/8.6MG TAB PO SCH ×3 (09:47→21:29)
[2020-06-10] MEDS: INSULIN ASPART 100 UNITS/ML 3 ML PEN SC SCH ×4 (09:48→21:28)
[2020-06-10] MEDS: LIDOCAINE 5% 1 PATCH TD SCH (09:48)
[2020-06-10] MEDS: INSULIN DETEMIR FLEXPEN/FLEX TOUCH 100 UNITS/ML 3ML SC SCH ×2 (09:49→21:27)
[2020-06-10] MEDS: DICLOFENAC SOD 1% GEL 100 GM TUBE EXT SCH ×2 (09:50→21:26)
--- NOTE | 2020-06-10 10:10 | Orthopedic Progress Note ---
Date of Service June 10, 2020 Assessment & Plan (1) Lumbar disc herniation with radiculopathy: Admission and Anticipated Discharge Date Admission Date: June 03, 2020 this time we will continue with physical therapy monitor her BIBI output hopefully discharge in the next few days. Subjective Patient's back pain is controlled left leg symptoms markedly improved. Physical Exam Physical Exam: Patient is standing and ambulating with a walker. Strength is improving. Results & Data ([facility]) Vital Signs (Past 12 Hours) Vital Signs Temp Pulse Pulse Resp BP BP Pulse Ox 06/10/20 08:07 92 06/10/20 07:21 37.1 C 76 18 110/68 98 06/10/20 03:39 36.9 C 113 H 20 133/76 94 06/10/20 03:15 87 06/09/20 22:43 36.8 C 87 18 128/67 91
--- NOTE | 2020-06-10 10:28 | Ultrasound Report ---
ABDOMINAL ULTRASOUND, RIGHT UPPER QUADRANT HISTORY: high ammonia ro chronic liver dse. COMPARISON: Abdomen and pelvis CT 02/04/2016. Abdominal ultrasound 02/04/2016. FINDINGS: Pancreas: Obscured by overlying bowel gas. Liver: 16.5 cm in length. No hepatic masses. Mild intrahepatic bile duct dilatation remains unchanged . The main portal vein is patent and demonstrate normal direction of flow. Gallbladder: Trace sludge. No definite gallstones. No gallbladder wall thickening. The gallbladder re ghada mildly distended. CBD: Persistent common bile duct distention measuring up to 1.2 cm. This is similar to the prior stud y. Right kidney: No hydronephrosis. IMPRESSION: 1. Trace gallbladder sludge. No gallstones. No gallbladder wall thickening. 2. No significant change in the intra and extra hepatic bile duct dilatation. ACT 112: Negative or not required by law. Electronically signed by: August Rasheed M.D. 06/10/2020 10:27 AM
--- NOTE | 2020-06-10 11:44 | Pharmacy Report ---
Pharmacy Glycemic Short Note 2 - Date of Service June 10, 2020 - Glycemic Short BSG Results (Last 24 hours): 06/09/20 06/09/20 06/09/20 11:46 15:28 16:33 Glucose POC Glucose 158 H 154 H 160 H 06/09/20 06/09/20 06/10/20 20:18 21:12 06:48 Glucose 171 H 135 H POC Glucose 231 H 06/10/20 06/10/20 07:37 11:36 Glucose POC Glucose 159 H 171 H OUTPATIENT ANTIDIABETIC REGIMEN: * Bydureon 2mg SQ Q Mondays * Levemir 30 units SQ BID * NovoLog units with meals respectively * A1c = 7.8% on 06/03/20 ASSESSMENT: 06/10/20: * Patient received a total of 68 units of insulin yesterday * 56 units basal + 12 units bolus; bolus insulin dosing "low" secondary for NPO for surgery * BSGs ranged 154-231 mg/dL * AM fasting BSG is in goal range --> no changes needed to basal insulin dosing * Patient continues to have decreased CHO intake post-operatively. However, no changes needed since the ordered CR is only given based on total of CHO consumed at meals. Pt with moderate hyperglycemia last evening at bedtime - may have been due to stress from surgery. Will not make and changes based on one elevated BSG. Overall, glycemic control has been excellent on current regimen. 06/09/20: * Patient received a total of 73 units of insulin yesterday * 56 units basal + 17 units bolus * BSGs ranged 111-167 mg/dL * Fasting BSG this AM was elevated at 175 mg/dL * Patient is NPO today for surgery. Given elevated fasting, continued with current basal dose this AM * Lunchtime BSG was 158 mg/dL. No changes to prandial insulin at this time. * Depending on pre-/intra-/post-operative use of steroids, patient's insulin requirements may increase. 06/06/20: * Patient received total of 78 units of insulin yesterday, of which 56 were basal insulin * Fasting BSG this AM 158 mg/dL - continue same basal insulin * BSGs trending down at lunch time from 158-92 mg/dL - plan to scale back on CR at lunch as previous days indicate BSGS tend to drop from lunch to dinner time 06/05/20: * Pt has received 85 units of insulin over the past 24hrs * 60 units of basal with Levemir * 25 units of bolus with NovoLog * Pt with LOW BSG yesterday at dinner- most likely secondary to NovoLog (17 units given with lunch). Pt uses units NovoLog with meals as an outpatient but likely needs even less with controlled CHO diet in house. * Will loosen NovoLog CF/CR. * AM fasting BSG is also trending downwards - 141-->113 mg/dl. WIll decrease Lantus slightly to prevent low tomorrow. 06/04/20: * Pt hyperglycemic on admission - worsened after dose of IV Dexamethasone. * Hyperglycemia resolving with RTC NovoLog and stressed basal insulin dosing * Hyperglycemic effects of DXM should start wearing off today - will resume insulin regimen that worked well for patient during 11/2019 admission and titrate based on BSG trends. 06/03/20: * 75 yo F admitted secondary to Intractable Hip/Back Pain. Pharmacy is consulted for Glycemic Management. Patient is known to our service. * She received a one time dose of IV dexamethasone in the ED. No further steroids are ordered at this time. * Will utilize previous admission data in order to design regimen for this stay. * Expect BSGs to decrease as Dexamethasone dose wears off. PLAN FOR INPATIENT GLYCEMIC CONTROL: no changes needed at this time. * Basal insulin: * Levemir 28 units SQ BID * Bolus insulin: loosen parameters * NovoLog per scale ACHS or Q6hrs while NPO * Goal Range: Low 110 mg/dL - High 140 mg/dL * Correction Factor: 20 mg/dL/unit * Nutritional / Prandial insulin per carb ratio of 1 unit per 9 grams CHO consumed PLAN FOR DISCHARGE: * A1c is in goal range based on age/comorbidities. * No changes needed to outpatient regimen.
[2020-06-10] MEDS: OXYCODONE HCL IR 5 MG TAB (IMMEDIATE RELEASE) PO PRN ×3 (13:02→21:26)
[2020-06-10] MEDS: METOPROLOL TARTRATE 25 MG TAB PO SCH (21:26)
[2020-06-10] MEDS: MONTELUKAST SODIUM 10 MG TABLET PO SCH (21:26)
[2020-06-10] MEDS: ACETAMINOPHEN 500 MG TAB PO PRN (21:26)
[2020-06-10] MEDS: ROSUVASTATIN CALCIUM 20 MG TAB PO SCH (21:27)
[2020-06-11] MEDS: POLYETHYLENE (MIRALAX) 17 GM PACK PO SCH ×6 (01:24→20:54)
[2020-06-11] MEDS: CEFEPIME 2,000 MG in SYRINGE 7.5 ML IV SCH (03:01)
[2020-06-11] MEDS: ACETAMINOPHEN 325 MG TAB PO PRN ×2 (03:01→19:17)
[2020-06-11] MEDS: OXYCODONE HCL IR 5 MG TAB (IMMEDIATE RELEASE) PO PRN ×2 (04:37→21:29)
[2020-06-11] MEDS: LEVOTHYROXINE SODIUM 100 MCG TABLET PO SCH (05:49)
[2020-06-11] MEDS: HYDROmorphone INJ 0.5 MG/0.5 ML SYR IV PRN ×3 (05:50→22:41)
--- NOTE | 2020-06-11 08:11 | Hospitalist Progress Note ---
Date of Service June 11, 2020 Assessment & Plan (1) Left hip pain: This is a 75-year-old female with significant PMH of CAD, chronic diastolic CHF, T2DM, HTN, HLD, CKD stage III, chronic narcotic use, DDD, hypothyroidism who presents to ED secondary to intractable left hip and low back pain x2 weeks. Moderate left hip pain secondary to osteoarthritis Referred pain in inner thigh of the left side could be secondary to left hip osteoarthritis CT of the hip did show moderate osteoarthritis without any fracture Left hip pain with movement of the hip joints especially external and internal rotation with radiation of pain to the inner thigh orthopedic surgery consulted Has moderate to severe osteoarthritis of the left hip with greater trochanteric bursitis Appreciate Ortho input and recommendation Recommended NSAID use(maybe harmful with history of diastolic CHF and CAD), lidocaine and physical therapy on top of a small dose of narcotics pain medication Recommended left hip injection with steroid as an outpatient Left hip pain is worsened that she can hardly participate in physical therapy Ortho service contacted for possible injection/ no inpt injections, need to plan for outpt Dr. Carreno and discussed patient's presentation, Dr. Carreno then to proceed with L3-L4 decompression and fusion Patient's low back pain and left hip pain is now much improved after L3-L4 decompression and fusion (2) Low back pain: Has lumbar radiculopathy as evidenced by MRI of the lumbar spine No bladder and/or bowel problems No significant weakness of the left lower extremity Appreciate orthospine input and recommendation Now s/p L3-L4 decompression and fusion by Dr. Carreno 06/09, tolerated procedure well, except at night after surgery patient became confused and less responsive, now resolved Preop recommendations discussed with cardiology (3) CAD (coronary artery disease): Patient denies chest pain or shortness of breath Continue ASA, statin, Imdur, metoprolol, lisinopril Denies any symptoms (4) Chronic diastolic CHF (congestive heart failure): euvolemic, per pt baseline weight ~ 200lb continue lisinopril, metoprolol, imdur daily weights, strict I and O baseline Cr 1.2 some elevation in BUN monitor renal fxn, held Lasix in the morning before surgery, will resume now No signs of fluid overload (5) Nonspecific ST-T wave electrocardiographic changes: pt with inferior t wave inversions, new from prior ecg 11/2019 pt denies CP/SOB appears stable and euvolemic from cardiac standpoint - repeated ecg and obtained echo - discussed with cardiology for preop eval (6) HTN (hypertension): blood pressure stable continue metoprolol, lisinopril, Imdur Blood pressure remains lower side of normal (7) DM type 2 (diabetes mellitus, type 2): a1c 7.8 on Levemir/novolog, bydureon as outpt consult glycemic pharmacy, appreciate their management (8) Hypothyroidism: continue levothyroxine (9) Chronic pain: pt on chronic percocet, lyrica confirmed via pdmd (10) CKD (chronic kidney disease) stage 3, GFR 30-59 ml/min: baseline cr 1.5 bun/cr 40s and 1.2 avoid nephrotoxic agents, monitor bmp-creatinine has been normalized (11) HLD (hyperlipidemia): continue statin (12) DVT prophylaxis: Lovenox 30 mg daily Disposition: Admit to medical telemetry due to EKG change, consult case management patient may need rehab Follow-up: PCP Dr. Boland upon discharge Admission and Anticipated Discharge Date Admission Date: June 03, 2020 Subjective Patient is sitting in a chair, in no acute distress. She was previously working with PT/OT. Says that her back pain/left hip pain is much improved now. She is still weak and achy, mostly from her arthritis. Complained of constipation earlier, now resolved. Lyrica restarted by Dr. Carreno. Patient currently denies any fevers, chills, chest pain, shortness of breath, abdominal pain, nausea or vomiting. Discussed likely need for rehab. Review of Systems Review of Systems: All systems reviewed & are unremarkable except as noted in HPI & below Constitutional: no fever and no chills Respiratory: no cough and no dyspnea Cardiovascular: no chest pain and no palpitations Gastrointestinal: + constipation (now resolved); no abdominal pain, no nausea and no vomiting Genitourinary: no dysuria Physical Exam Physical Exam: Physical Exam: Elderly obese female, sitting up in a chair, in no acute distress Constitutional: well developed, well nourished, + mild acute distress (Moderate left hip pain), + ill appearing and + obese Eyes: PERRL, conjunctivae normal, anicteric sclerae ENMT: external ear and nose normal, oropharynx normal Neck: trachea midline Respiratory: normal respiratory effort; no respiratory distress Auscultation: lungs clear to auscultation bilaterally, somewhat diminished breath sounds Cardiovascular: Rate/Rhythm: regular rate and regular rhythm Heart Sounds: no murmur Gastrointestinal (Abdomen): Inspection/Auscultation: abdomen normal to inspection; abdomen not distended Percussion/Palpation: abdomen soft, obese Musculoskeletal: Moves extremities spontaneously, with difficulty, ambulates with a walker and assistance Neurologic: moves all extremities, Alert, awake and oriented x3, answers questions mostly appropriately Results & Data Results & Data ([facility]) Vital Signs (Past 12 Hours) Vital Signs Temp Pulse Pulse Pulse Resp BP Pulse Ox 06/11/20 07:49 37.2 C 72 18 120/57 L 93 06/11/20 03:45 37.3 C 70 18 131/68 92 06/11/20 00:57 63 06/10/20 23:17 37.1 C 68 18 114/42 L 96 Laboratory Results 06/11/20 06/11/20 06/11/20 Range/Units 16:26 11:36 08:33 WBC (4.8-10.8) K/uL RBC (4.2-5.4) M/uL Hgb (12.0-16.0) g/dL Hct (37-47) % MCV (80-100) fL MCH (25-34) pg MCHC (32-36) g/dL RDW Std Deviation (36.4-46.3) fL RDW Coeff of Burak (11.5-14.5) % Plt Count (130-400) K/uL MPV (7.4-10.4) fL Sodium 139 (136-145) mmol/L Potassium 4.0 (3.5-5.1) mmol/L Chloride 107 (98-107) mmol/L Carbon Dioxide 29 (21-32) mmol/L Anion Gap 3.0 (3-11) BUN 26 H (7-18) mg/dl Creatinine 0.87 (0.6-1.2) mg/dl Est Cr Clr Drug Dosing 52.7 ml/min Est GFR ( Amer) 74.5 Est GFR (Non-Af Amer) 64.3 BUN/Creatinine Ratio 29.8 H (10-20) Glucose 85 (70-99) mg/dl POC Glucose 129 H 216 H (70-99) mg/dl Calcium 9.2 (8.5-10.1) mg/dl 06/11/20 06/11/20 06/10/20 Range/Units 08:33 07:54 20:28 WBC 10.93 H (4.8-10.8) K/uL RBC 3.63 L (4.2-5.4) M/uL Hgb 10.2 L (12.0-16.0) g/dL Hct 31.6 L (37-47) % MCV 87.1 (80-100) fL MCH 28.1 (25-34) pg MCHC 32.3 (32-36) g/dL RDW Std Deviation 44.9 (36.4-46.3) fL RDW Coeff of Burak 14.1 (11.5-14.5) % Plt Count 245 (130-400) K/uL MPV 9.3 (7.4-10.4) fL Sodium (136-145) mmol/L Potassium (3.5-5.1) mmol/L Chloride (98-107) mmol/L Carbon Dioxide (21-32) mmol/L Anion Gap (3-11) BUN (7-18) mg/dl Creatinine (0.6-1.2) mg/dl Est Cr Clr Drug Dosing ml/min Est GFR ( Amer) Est GFR (Non-Af Amer) BUN/Creatinine Ratio (10-20) Glucose (70-99) mg/dl POC Glucose 91 149 H (70-99) mg/dl Calcium (8.5-10.1) mg/dl Medications Administered Current Inpatient Medications Acetaminophen (Acetaminophen 325 Mg Tab) 650 mg PO Q4H PRN PRN Reason: pain/fever Stop: 07/03/20 13:08 Last Admin: 06/11/20 03:01 Dose: 650 mg Documented by: Acetaminophen (Acetaminophen 500 Mg Tab) 1,000 mg PO Q8H PRN PRN Reason: MILD Pain Scale 1,2,3 & Pre PT Stop: 07/09/20 16:19 Last Admin: 06/11/20 08:33 Dose: 1,000 mg Documented by: Al Hydrox/Mg Hydrox/Simethicone (Maalox) 30 ml PO Q6H PRN PRN Reason: Dyspepsia Stop: 07/03/20 13:08 Al Hydrox/Mg Hydrox/Simethicone (Aluminum/Magnesium Susp 30 Ml Udc) 30 ml PO Q6H PRN PRN Reason: Dyspepsia Stop: 07/09/20 16:19 Aspirin (Ecotrin Ectab) 81 mg PO QAM MILEY Stop: 07/04/20 08:59 Last Admin: 06/11/20 08:27 Dose: 81 mg Documented by: Bisacodyl (Bisacodyl 10 Mg Supp) 10 mg NE DAILY PRN PRN Reason: Constipation Stop: 07/09/20 16:19 Calcium Carbonate (Tums) 500 mg PO TID PRN PRN Reason: Indigestion Stop: 07/05/20 00:00 Last Admin: 06/05/20 00:34 Dose: 500 mg Documented by: Dextrose (Dextrose 50%) 25 - 50 ml IV UD PRN; Protocol PRN Reason: Hypoglycemia Protocol Stop: 07/03/20 16:36 Diclofenac Sodium (Voltaren 1% Top) 2 gm EXT BID [facility] Stop: 07/04/20 20:59 Last Admin: 06/11/20 08:25 Dose: 2 gm Documented by: Diphenhydramine HCl (Diphenhydramine Hcl 25 Mg Cap) 25 mg PO Q6H PRN PRN Reason: Allergic Rhinitis/Insomnia Stop: 07/09/20 16:19 Famotidine (Famotidine 20 Mg Tab) 20 mg PO Q12H PRN PRN Reason: Dyspepsia Stop: 07/09/20 16:19 Fluticasone Propionate (Flonase) 1 sprays BLAKE DAILY PRN PRN Reason: Allergy Symptoms Stop: 07/03/20 16:59 Glucagon (Glucagen) 1 mg SQ UD PRN; Protocol PRN Reason: Hypoglycemia Protocol Stop: 07/03/20 16:36 Glucose (Dex4 Glucose) 4 - 8 tabs PO UD PRN; Protocol PRN Reason: Hypoglycemia Protocol Stop: 07/03/20 16:36 Glucose (Glucose 40%) 15 - 30 gm PO UD PRN; Protocol PRN Reason: Hypoglycemia Protocol Stop: 07/03/20 16:36 Hydromorphone HCl (Hydromorphone Inj 0.5 Mg/0.5 Ml Syr) 0.25 mg IV Q4H PRN PRN Reason: Pain Stop: 06/23/20 23:52 Last Admin: 06/11/20 15:17 Dose: 0.25 mg Documented by: Hydroxyzine HCl (Hydroxyzine Hcl 25 Mg Tab) 25 mg PO Q8H PRN PRN Reason: Anxiety Stop: 07/09/20 16:19 Promethazine HCl 12.5 mg/ (Sodium Chloride) 50.5 mls @ 204 mls/hr IV Q6H PRN PRN Reason: Nausea &/or Vomiting Stop: 07/09/20 16:19 Lorazepam (Ativan) 0.5 mg in 1 mls @ 0.5 mls/min IV Q8H PRN PRN Reason: Sedation/Anxiety Stop: 07/09/20 16:19 Cefepime HCl 2,000 mg/ Syringe 20 mls @ 5 mls/min IV Q24H [facility]; Protocol Stop: 06/20/20 01:29 Last Admin: 06/11/20 03:01 Dose: 5 mls/min Documented by: Influenza Virus Vaccine Quadrival (Do Not Administer Flu Vaccine) 1 ea N/A PRN PRN PRN Reason: Notification Stop: 07/09/20 16:19 Insulin Aspart (Novolog Flexpen) 0 units SC ACHS [facility], [facility]; Protocol Stop: 07/03/20 17:04 Last Admin: 06/11/20 13:01 Dose: 7 units Documented by: Insulin Detemir (Insulin Detemir Flexpen/Flex Touch 100 Units/Ml 3ml) 0 units SC BID [facility], [facility]; Protocol Stop: 07/11/20 20:59 Isosorbide Mononitrate (Imdur Extended Rel) 30 mg PO [facility] Stop: 07/04/20 08:59 Last Admin: 06/11/20 08:27 Dose: 30 mg Documented by: Levothyroxine Sodium (Synthroid) 100 mcg PO DAILYBB [facility]1983 Stop: 07/04/20 06:29 Last Admin: 06/11/20 05:49 Dose: 100 mcg Documented by: Lidocaine (Lidoderm 5%) 1 patch TD [facility] Stop: 07/04/20 08:59 Last Admin: 06/11/20 08:26 Dose: 1 patch Documented by: Lisinopril (Lisinopril 20 Mg Tab) 20 mg PO [facility] Stop: 07/04/20 08:59 Last Admin: 06/09/20 09:27 Dose: 20 mg Documented by: Loratadine (Claritin) 10 mg PO QAM [facility] Stop: 07/04/20 08:59 Last Admin: 06/11/20 08:27 Dose: 10 mg Documented by: Lorazepam (Lorazepam 0.5 Mg Tab) 0.5 mg PO Q8H PRN PRN Reason: Sedation/Anxiety Stop: 07/09/20 16:19 Magnesium Hydroxide (Milk Of Magnesia) 30 ml PO Q6H PRN PRN Reason: Constipation Stop: 07/03/20 13:08 Last Admin: 06/08/20 18:04 Dose: 30 ml Documented by: Magnesium Hydroxide (Magnesium Hydroxide Susp 30 Ml Udc) 30 ml PO DAILY PRN PRN Reason: Constipation Stop: 07/09/20 16:19 Metoclopramide HCl (Metoclopramide Hcl Inj 5 Mg/Ml 2 Ml Vial) 10 mg IV Q6H PRN PRN Reason: Nausea &/or Vomiting Stop: 07/09/20 16:19 Metoprolol Tartrate (Lopressor) 25 mg PO QPM [facility] Stop: 07/03/20 20:59 Last Admin: 06/10/20 21:26 Dose: 25 mg Documented by: Metoprolol Tartrate (Metoprolol Tartrate 50 Mg Tab) 50 mg PO QAM [facility] Stop: 07/10/20 08:59 Last Admin: 06/11/20 08:27 Dose: 50 mg Documented by: Miscellaneous (Carbohydrates For Hypoglycemia) 15 - 30 gm PO UD PRN PRN Reason: Hypoglycemia Protocol Stop: 07/03/20 16:36 Last Admin: 06/04/20 16:39 Dose: 15 gm Documented by: Miscellaneous (Remove Lidoderm Patch) 1 ea N/A DAILY@2100 [facility] Stop: 07/03/20 20:59 Last Admin: 06/10/20 21:29 Dose: 1 ea Documented by: Miscellaneous Information (Consult Glycemic Management Pharmacy) 1 ea N/A UD PRN; Protocol PRN Reason: Consult Stop: 07/03/20 16:56 Miscellaneous Information (Cefepime Consult Active) 1 ea N/A UD PRN PRN Reason: Consult Stop: 07/10/20 00:28 Montelukast Sodium (Singulair) 10 mg PO HS [facility] Stop: 07/03/20 20:59 Last Admin: 06/10/20 21:26 Dose: 10 mg Documented by: Naloxone HCl (Naloxone Hcl 0.4 Mg/1 Ml Vial/Carp) 0.1 mg IV Q5M PRN; Protocol PRN Reason: Oversedation/Resp Depression Stop: 07/09/20 16:19 Olanzapine (Olanzapine 10 Mg/2.1 Ml Sdv) 2.5 mg IM Q4H PRN PRN Reason: Anxiety/Agitation Stop: 07/10/20 02:06 Ondansetron HCl (Zofran) 4 mg IV Q6H PRN PRN Reason: Nausea Stop: 07/03/20 13:08 Last Admin: 06/05/20 09:39 Dose: 4 mg Documented by: Ondansetron HCl (Ondansetron Inj 2 Mg/Ml 2 Ml Vial) 4 mg IV Q6H PRN PRN Reason: Nausea &/or Vomiting Stop: 07/09/20 16:19 Ondansetron HCl (Ondansetron 4 Mg Od Tab) 4 mg PO Q6H PRN PRN Reason: Nausea Stop: 07/09/20 16:19 Oxycodone HCl (Oxycodone Hcl Ir 5 Mg Tab (Immediate Release)) 5 mg PO Q4H PRN PRN Reason: Pain Stop: 06/23/20 23:52 Last Admin: 06/11/20 04:37 Dose: 5 mg Documented by: Oxycodone/Acetaminophen (Oxycodone/Acetaminophen 10-325 Tab) 1 tab PO QID PRN PRN Reason: Pain Stop: 06/17/20 16:59 Last Admin: 06/09/20 11:48 Dose: 1 tab Documented by: Pantoprazole Sodium (Protonix) 40 mg PO QAM MILEY Stop: 07/04/20 08:59 Last Admin: 06/11/20 08:27 Dose: 40 mg Documented by: Pneumococcal Polyvalent Vaccine (Do Not Administer Pneumococcal Vaccine) 1 ea N/A PRN PRN PRN Reason: Notification Stop: 07/09/20 16:19 Polyethylene Glycol (Miralax Powder Packet) 17 gm PO DAILY PRN PRN Reason: Constipation Stop: 07/03/20 16:59 Polyethylene Glycol (Polyethylene (Miralax) 17 Gm Pack) 17 gm PO BID [facility] Stop: 07/09/20 20:59 Last Admin: 06/11/20 08:33 Dose: 17 gm Documented by: Polyethylene Glycol (Polyethylene (Miralax) 17 Gm Pack) 17 gm PO Q6 [facility] Stop: 07/10/20 05:59 Last Admin: 06/11/20 13:00 Dose: 17 gm Documented by: Pregabalin (Pregabalin 100 Mg Cap) 200 mg PO TID [facility] Stop: 07/06/20 20:59 Last Admin: 06/09/20 17:54 Dose: Not Given Documented by: Pregabalin (Pregabalin 100 Mg Cap) 100 mg PO BID [facility] Stop: 07/11/20 16:29 Rosuvastatin Calcium (Crestor) 20 mg PO HS [facility] Stop: 07/03/20 20:59 Last Admin: 06/10/20 21:27 Dose: 20 mg Documented by: Senna/Docusate Sodium (Senokot S) 1 tab PO BID [facility] Stop: 07/03/20 20:59 Last Admin: 06/11/20 08:40 Dose: 1 tab Documented by: Senna/Docusate Sodium (Docusate Sodium/Senna 50/8.6mg Tab) 2 tab PO HS [facility] Stop: 07/09/20 20:59 Last Admin: 06/10/20 21:26 Dose: 2 tab Documented by: Sodium Biphosphate/Sodium Phosphate (Sod Phosphate/Sod Biphosphate Enema 132 Ml Btl) 132 ml NE ONE PRN PRN Reason: Constipation Stop: 07/09/20 16:19 Tramadol HCl (Tramadol Hcl 50 Mg Tablet) 25 - 50 mg PO Q4H PRN PRN Reason: Moderate-Severe Pain & Pre PT Stop: 07/09/20 16:19 Last Admin: 06/10/20 15:46 Dose: 50 mg Documented by: (1) Low back pain Back pain laterality: midline Chronicity: acute Sciatica presence: without sciatica Qualified Code(s): M54.5 - Low back pain
[2020-06-11] MEDS: DICLOFENAC SOD 1% GEL 100 GM TUBE EXT SCH ×2 (08:25→20:54)
[2020-06-11] MEDS: LIDOCAINE 5% 1 PATCH TD SCH (08:26)
[2020-06-11] MEDS: METOPROLOL TARTRATE 50 MG TAB PO SCH (08:27)
[2020-06-11] MEDS: ASPIRIN 81 MG ECTAB PO SCH (08:27)
[2020-06-11] MEDS: LORATADINE 10 MG TAB PO SCH (08:27)
[2020-06-11] MEDS: PANTOprazole 40 MG TAB PO SCH (08:27)
[2020-06-11] MEDS: ISOSORBIDE MONO EXTENDED REL 30 MG TABCR PO SCH (08:27)
[2020-06-11] MEDS: INSULIN ASPART 100 UNITS/ML 3 ML PEN SC SCH ×4 (08:28→20:54)
[2020-06-11] MEDS: ACETAMINOPHEN 500 MG TAB PO PRN (08:33)
[2020-06-11] MEDS: DOCUSATE SODIUM/SENNA 50/8.6MG TAB PO SCH ×3 (08:40→21:09)
[2020-06-11] MEDS ORDERED: INSULIN DETEMIR FLEXPEN/FLEX TOUCH 100 UNITS/ML 3ML SC SCH ×2 (09:00→21:00)
[2020-06-11 09:16] LABS: Hematocrit (blood only) 31.6 % (37-47); Hemoglobin 10.2 g/dL (12.0-16.0); Mean Corpuscular Hemoglobin 28.1 pg (25-34); Mean Corpuscular Hgb Conc 32.3 g/dL (32-36); Mean Corpuscular Volume 87.1 fL (80-100); Mean Platelet Volume 9.3 fL (7.4-10.4); Platelet Count 245 K/uL (130-400); RDW Coefficient of Variation 14.1 % (11.5-14.5); RDW Standard Deviation 44.9 fL (36.4-46.3); Red Blood Count 3.63 M/uL (4.2-5.4); White Blood Count 10.93 K/uL (4.8-10.8)
[2020-06-11] MEDS ORDERED: SOD PHOSPHATE/SOD BIPHOSPHATE ENEMA 132 ML BTL PR STA (09:46)
--- NOTE | 2020-06-11 09:49 | Orthopedic Progress Note ---
Date of Service June 11, 2020 Assessment & Plan (1) Lumbar disc herniation with radiculopathy: Admission and Anticipated Discharge Date Admission Date: June 03, 2020 At this time we will restart her Lyrica 20 mg p.o. 3 times daily. She would like an enema this morning to help with her bowels. We will continue with physical therapy as tolerated. Subjective Back pain controlled leg symptoms improved Physical Exam Physical Exam: Patient in chair at bedside. Is good strength testing. Results & Data ([facility]) Vital Signs (Past 12 Hours) Vital Signs Temp Pulse Pulse Pulse Resp BP Pulse Ox 06/11/20 07:49 37.2 C 72 18 120/57 L 93 06/11/20 03:45 37.3 C 70 18 131/68 92 06/11/20 00:57 63 06/10/20 23:17 37.1 C 68 18 114/42 L 96
[2020-06-11 09:53] LABS: BUN Creatinine Ratio 29.8 (10-20); Calcium 9.2 mg/dl (8.5-10.1); Creatinine Clr Calc Pharmacy 52.7 ml/min; Est GFR (African American) 74.5; Est GFR (Non-African American) 64.3
[2020-06-11] MEDS: PREGABALIN 100 MG CAP PO SCH (17:31)
[2020-06-11] MEDS: ROSUVASTATIN CALCIUM 20 MG TAB PO SCH (20:52)
[2020-06-11] MEDS: METOPROLOL TARTRATE 25 MG TAB PO SCH (20:53)
[2020-06-11] MEDS: INSULIN DETEMIR FLEXPEN/FLEX TOUCH 100 UNITS/ML 3ML SC SCH (20:53)
[2020-06-11] MEDS: MONTELUKAST SODIUM 10 MG TABLET PO SCH (20:54)
[2020-06-11] MEDS ORDERED: PREGABALIN 100 MG CAP PO SCH (21:00)
[2020-06-11] MEDS ORDERED: SODIUM CHLORIDE 0.65% NA SOLN 45 ML (OCEAN) ONE (21:26)
[2020-06-12] MEDS: TRAMADOL HCL 50 MG TABLET PO PRN (00:26)
[2020-06-12] MEDS: POLYETHYLENE (MIRALAX) 17 GM PACK PO SCH ×7 (00:40→21:34)
[2020-06-12] MEDS ORDERED: HYDROmorphone INJ 0.5 MG/0.5 ML SYR IV PRN (01:41)
[2020-06-12] MEDS: OXYCODONE/ACETAMINOPHEN 10-325 TAB PO PRN ×4 (01:59→21:02)
[2020-06-12] MEDS: CEFEPIME 2,000 MG in SYRINGE 7.5 ML IV SCH (02:00)
[2020-06-12] MEDS: LEVOTHYROXINE SODIUM 100 MCG TABLET PO SCH (05:44)
[2020-06-12] MEDS: ACETAMINOPHEN 325 MG TAB PO PRN (05:44)
--- NOTE | 2020-06-12 07:43 | Hospitalist Progress Note ---
Date of Service June 12, 2020 Assessment & Plan (1) Left hip pain: Lumbar disc herniation with radiculopathy This is a 75-year-old female with significant PMH of CAD, chronic diastolic CHF, T2DM, HTN, HLD, CKD stage III, chronic narcotic use, DDD, hypothyroidism who presents to ED secondary to intractable left hip and low back pain x2 weeks. Moderate left hip pain initially believed to be secondary to osteoarthritis alone Referred pain in inner thigh of the left side could be secondary to left hip osteoarthritis CT of the hip did show moderate osteoarthritis without any fracture Left hip pain with movement of the hip joints especially external and internal rotation with radiation of pain to the inner thigh orthopedic surgery consulted Recommended NSAID use(maybe harmful with history of diastolic CHF and CAD), lidocaine and physical therapy on top of a small dose of narcotics pain medication Recommended left hip injection with steroid as an outpatient Left hip pain is worsened that she can hardly participate in physical therapy Ortho service contacted for possible injection/ no inpt injections, need to plan for outpt Dr. Carreno and discussed patient's presentation, Dr. Carreno believes her symptoms might be due to lumbar disc herniation and radiculopathy Patient is now s/p L3-L4 decompression and fusion, her back pain and left hip pain is now much improved (2) Low back pain: Lumbar disc herniation with radiculopathy has lumbar radiculopathy as evidenced by MRI of the lumbar spine No bladder and/or bowel problems No significant weakness of the left lower extremity Appreciate orthospine input and recommendation Now s/p L3-L4 decompression and fusion by Dr. Carreno 06/09, tolerated procedure well, except at night after surgery patient became confused and less responsive, now resolved Preop recommendations discussed with cardiology (3) CAD (coronary artery disease): Patient denies chest pain or shortness of breath Continue ASA, statin, Imdur, metoprolol, lisinopril Denies any symptoms (4) Chronic diastolic CHF (congestive heart failure): euvolemic, per pt baseline weight ~ 200lb continue lisinopril, metoprolol, imdur daily weights, strict I and O baseline Cr 1.2 some elevation in BUN monitor renal fxn, held Lasix in the morning before surgery, resumed now No signs of fluid overload (5) Nonspecific ST-T wave electrocardiographic changes: pt with inferior t wave inversions, new from prior ecg 11/2019 pt denies CP/SOB appears stable and euvolemic from cardiac standpoint - repeated ecg and obtained echo - discussed with cardiology for preop eval, cont. home meds after surgery (6) HTN (hypertension): blood pressure stable continue metoprolol, lisinopril, Imdur Blood pressure remains lower side of normal (7) DM type 2 (diabetes mellitus, type 2): a1c 7.8 on Levemir/novolog, bydureon as outpt consult glycemic pharmacy, appreciate their management (8) Hypothyroidism: continue levothyroxine (9) Chronic pain: pt on chronic percocet, lyrica confirmed via pd[facility] (10) CKD (chronic kidney disease) stage 3, GFR 30-59 ml/min: baseline cr 1.5 bun/cr 40s and 1.2 avoid nephrotoxic agents, monitor bmp-creatinine has been normalized (11) HLD (hyperlipidemia): continue statin (12) DVT prophylaxis: Lovenox 30 mg daily Disposition: Admit to medical telemetry due to EKG change, consult case management patient may need rehab Follow-up: PCP Dr. Boland upon discharge Admission and Anticipated Discharge Date Admission Date: June 03, 2020 Subjective Patient is sitting up in a chair, in no acute distress. She does not complain of left hip pain at all. Has some achiness from surgery. Patient currently denies any fevers, chills, chest pain, shortness of breath, abdominal pain, nausea or vomiting. Likely will be discharged to [facility]. Review of Systems Review of Systems: All systems reviewed & are unremarkable except as noted in HPI & below Constitutional: no fever and no chills Respiratory: no cough and no dyspnea Cardiovascular: no chest pain and no palpitations Gastrointestinal: no abdominal pain, no nausea, no vomiting and no constipation Genitourinary: no dysuria Physical Exam Physical Exam: Physical Exam: Elderly obese female, sitting up in a chair, in no acute distress Constitutional: well developed, well nourished, + obese Eyes: PERRL, EOMI, conjunctivae normal, anicteric sclerae ENMT: external ear and nose normal, oropharynx normal Neck: trachea midline Respiratory: normal respiratory effort; no respiratory distress Auscultation: lungs clear to auscultation bilaterally, somewhat diminished breath sounds Cardiovascular: Rate/Rhythm: regular rate and regular rhythm Heart Sounds: no murmur Gastrointestinal (Abdomen): Inspection/Auscultation: abdomen normal to inspection; abdomen not distended Percussion/Palpation: abdomen soft, obese Musculoskeletal: Moves extremities spontaneously, without much difficulty, ambulates with a walker and assistance Neurologic: moves all extremities, Alert, awake and oriented x3, answers questions mostly appropriately Results & Data Results & Data ([facility]) Vital Signs (Past 12 Hours) Vital Signs Temp Pulse Pulse Pulse Resp BP Pulse Ox 06/12/20 07:18 37.2 C 71 18 121/68 94 06/12/20 05:00 36.6 C 67 18 126/56 L 96 06/12/20 01:47 79 06/11/20 23:00 37.2 C 66 18 136/71 97 06/11/20 20:01 36.4 C L 80 20 131/69 97 Laboratory Results 06/12/20 06/12/20 06/12/20 Range/Units 11:23 07:34 07:30 Sodium 141 (136-145) mmol/L Potassium 4.0 (3.5-5.1) mmol/L Chloride 108 H (98-107) mmol/L Carbon Dioxide 26 (21-32) mmol/L Anion Gap 7.0 (3-11) BUN 20 H (7-18) mg/dl Creatinine 0.85 (0.6-1.2) mg/dl Est Cr Clr Drug Dosing 53.8 ml/min Est GFR ( Amer) 76.6 Est GFR (Non-Af Amer) 66.1 BUN/Creatinine Ratio 23.3 H (10-20) Glucose 147 H (70-99) mg/dl POC Glucose 120 H 184 H (70-99) mg/dl Calcium 8.5 (8.5-10.1) mg/dl Phosphorus 3.0 (2.5-4.9) mg/dl Magnesium 2.4 (1.8-2.4) mg/dl 06/12/20 06/11/20 06/11/20 Range/Units 04:50 20:09 16:26 Sodium (136-145) mmol/L Potassium (3.5-5.1) mmol/L Chloride (98-107) mmol/L Carbon Dioxide (21-32) mmol/L Anion Gap (3-11) BUN (7-18) mg/dl Creatinine (0.6-1.2) mg/dl Est Cr Clr Drug Dosing ml/min Est GFR ( Amer) Est GFR (Non-Af Amer) BUN/Creatinine Ratio (10-20) Glucose (70-99) mg/dl POC Glucose 87 133 H 129 H (70-99) mg/dl Calcium (8.5-10.1) mg/dl Phosphorus (2.5-4.9) mg/dl Magnesium (1.8-2.4) mg/dl Medications Administered Current Inpatient Medications Acetaminophen (Acetaminophen 325 Mg Tab) 650 mg PO Q4H PRN PRN Reason: pain/fever Stop: 07/03/20 13:08 Last Admin: 06/12/20 05:44 Dose: 650 mg Documented by: Acetaminophen (Acetaminophen 500 Mg Tab) 1,000 mg PO Q8H PRN PRN Reason: MILD Pain Scale 1,2,3 & Pre PT Stop: 07/09/20 16:19 Last Admin: 06/11/20 08:33 Dose: 1,000 mg Documented by: Al Hydrox/Mg Hydrox/Simethicone (Maalox) 30 ml PO Q6H PRN PRN Reason: Dyspepsia Stop: 07/03/20 13:08 Al Hydrox/Mg Hydrox/Simethicone (Aluminum/Magnesium Susp 30 Ml Udc) 30 ml PO Q6H PRN PRN Reason: Dyspepsia Stop: 07/09/20 16:19 Aspirin (Ecotrin Ectab) 81 mg PO QAM [facility] Stop: 07/04/20 08:59 Last Admin: 06/11/20 08:27 Dose: 81 mg Documented by: Bisacodyl (Bisacodyl 10 Mg Supp) 10 mg MI DAILY PRN PRN Reason: Constipation Stop: 07/09/20 16:19 Calcium Carbonate (Tums) 500 mg PO TID PRN PRN Reason: Indigestion Stop: 07/05/20 00:00 Last Admin: 06/05/20 00:34 Dose: 500 mg Documented by: Dextrose (Dextrose 50%) 25 - 50 ml IV UD PRN; Protocol PRN Reason: Hypoglycemia Protocol Stop: 07/03/20 16:36 Diclofenac Sodium (Voltaren 1% Top) 2 gm EXT BID [facility] Stop: 07/04/20 20:59 Last Admin: 06/11/20 20:54 Dose: 2 gm Documented by: Famotidine (Famotidine 20 Mg Tab) 20 mg PO Q12H PRN PRN Reason: Dyspepsia Stop: 07/09/20 16:19 Fluticasone Propionate (Flonase) 1 sprays [facility] DAILY PRN PRN Reason: Allergy Symptoms Stop: 07/03/20 16:59 Furosemide (Furosemide 40 Mg Tab) 40 mg PO QAM [facility] Stop: 07/12/20 08:59 Glucagon (Glucagen) 1 mg SQ UD PRN; Protocol PRN Reason: Hypoglycemia Protocol Stop: 07/03/20 16:36 Glucose (Dex4 Glucose) 4 - 8 tabs PO UD PRN; Protocol PRN Reason: Hypoglycemia Protocol Stop: 07/03/20 16:36 Glucose (Glucose 40%) 15 - 30 gm PO UD PRN; Protocol PRN Reason: Hypoglycemia Protocol Stop: 07/03/20 16:36 Hydromorphone HCl (Hydromorphone Inj 0.5 Mg/0.5 Ml Syr) 0.5 mg IV Q4H PRN PRN Reason: Pain Stop: 06/23/20 23:52 Promethazine HCl 12.5 mg/ (Sodium Chloride) 50.5 mls @ 204 mls/hr IV Q6H PRN PRN Reason: Nausea &/or Vomiting Stop: 07/09/20 16:19 Cefepime HCl 2,000 mg/ Syringe 20 mls @ 5 mls/min IV Q24H [facility]; Protocol Stop: 06/20/20 01:29 Last Admin: 06/12/20 02:00 Dose: 5 mls/min Documented by: Influenza Virus Vaccine Quadrival (Do Not Administer Flu Vaccine) 1 ea N/A PRN PRN PRN Reason: Notification Stop: 07/09/20 16:19 Insulin Aspart (Novolog Flexpen) 0 units SC ACHS [facility]; Protocol Stop: 07/03/20 17:04 Last Admin: 06/11/20 20:54 Dose: Not Given Documented by: Insulin Detemir (Insulin Detemir Flexpen/Flex Touch 100 Units/Ml 3ml) 0 units SC BID [facility]; Protocol Stop: 07/11/20 20:59 Last Admin: 06/11/20 20:53 Dose: 24 units Documented by: Isosorbide Mononitrate (Imdur Extended Rel) 30 mg PO [facility] Stop: 07/04/20 08:59 Last Admin: 06/11/20 08:27 Dose: 30 mg Documented by: [facility]othy[facility]ine [facility]) [facility] Stop: 07/04/20 06:29 Last Admin: 06/12/20 05:44 Dose: 100 mcg Documented by: Lidocaine (Lidoderm 5%) 1 patch TD [facility] Stop: 07/04/20 08:59 Last Admin: 06/11/20 08:26 Dose: 1 patch Documented by: Lisinopril (Lisinopril 20 Mg Tab) 20 mg PO [facility] Stop: 07/04/20 08:59 Last Admin: 06/09/20 09:27 Dose: 20 mg Documented by: Loratadine (Claritin) 10 mg PO [facility] Stop: 07/04/20 08:59 Last Admin: 06/11/20 08:27 Dose: 10 mg Documented by: Lorazepam (Lorazepam 0.5 Mg Tab) 0.5 mg PO Q8H PRN PRN Reason: Sedation/Anxiety Stop: 07/09/20 16:19 Magnesium Hydroxide (Milk Of Magnesia) 30 ml PO Q6H PRN PRN Reason: Constipation Stop: 07/03/20 13:08 Last Admin: 06/08/20 18:04 Dose: 30 ml Documented by: Magnesium Hydroxide (Magnesium Hydroxide Susp 30 Ml Udc) 30 ml PO DAILY PRN PRN Reason: Constipation Stop: 07/09/20 16:19 Metoclopramide HCl (Metoclopramide Hcl Inj 5 Mg/Ml 2 Ml Vial) 10 mg IV Q6H PRN PRN Reason: Nausea &/or Vomiting Stop: 07/09/20 16:19 Metoprolol Tartrate (Lopressor) 25 mg PO QPM [facility] Stop: 07/03/20 20:59 Last Admin: 06/11/20 20:53 Dose: 25 mg Documented by: Metoprolol Tartrate (Metoprolol Tartrate 50 Mg Tab) 50 mg PO [facility] Stop: 07/10/20 08:59 Last Admin: 06/11/20 08:27 Dose: 50 mg Documented by: Miscellaneous (Carbohydrates For Hypoglycemia) 15 - 30 gm PO UD PRN PRN Reason: Hypoglycemia Protocol Stop: 07/03/20 16:36 Last Admin: 06/04/20 16:39 Dose: 15 gm Documented by: Miscellaneous (Remove Lidoderm Patch) 1 ea N/A DAILY@2100 [facility] Stop: 07/03/20 20:59 Last Admin: 06/11/20 21:31 Dose: 1 ea Documented by: Miscellaneous Information (Consult Glycemic Management Pharmacy) 1 ea N/A UD PRN; Protocol PRN Reason: Consult Stop: 07/03/20 16:56 Miscellaneous Information (Cefepime Consult Active) 1 ea N/A UD PRN PRN Reason: Consult Stop: 07/10/20 00:28 Montelukast Sodium (Singulair) 10 mg PO HS [facility] Stop: 07/03/20 20:59 Last Admin: 06/11/20 20:54 Dose: 10 mg Documented by: Naloxone HCl (Naloxone Hcl 0.4 Mg/1 Ml Vial/Carp) 0.1 mg IV Q5M PRN; Protocol PRN Reason: Oversedation/Resp Depression Stop: 07/09/20 16:19 Olanzapine (Olanzapine 10 Mg/2.1 Ml Sdv) 2.5 mg IM Q4H PRN PRN Reason: Anxiety/Agitation Stop: 07/10/20 02:06 Ondansetron HCl (Zofran) 4 mg IV Q6H PRN PRN Reason: Nausea Stop: 07/03/20 13:08 Last Admin: 06/05/20 09:39 Dose: 4 mg Documented by: Ondansetron HCl (Ondansetron Inj 2 Mg/Ml 2 Ml Vial) 4 mg IV Q6H PRN PRN Reason: Nausea &/or Vomiting Stop: 07/09/20 16:19 Ondansetron HCl (Ondansetron 4 Mg Od Tab) 4 mg PO Q6H PRN PRN Reason: Nausea Stop: 07/09/20 16:19 Oxycodone/Acetaminophen (Oxycodone/Acetaminophen 10-325 Tab) 1 tab PO Q4H PRN PRN Reason: Pain Stop: 06/26/20 01:33 Last Admin: 06/12/20 01:59 Dose: 1 tab Documented by: Pantoprazole Sodium (Protonix) 40 mg PO QAM [facility] Stop: 07/04/20 08:59 Last Admin: 08/15/20 08:27 Dose: 40 mg Documented by: Pneumococcal Polyvalent Vaccine (Do Not Administer Pneumococcal Vaccine) 1 ea N/A PRN PRN PRN Reason: Notification Stop: 07/09/20 16:19 Polyethylene Glycol (Miralax Powder Packet) 17 gm PO DAILY PRN PRN Reason: Constipation Stop: 07/03/20 16:59 Polyethylene Glycol (Polyethylene (Miralax) 17 Gm Pack) 17 gm PO BID [facility] Stop: 07/09/20 20:59 Last Admin: 06/11/20 20:54 Dose: 17 gm Documented by: Polyethylene Glycol (Polyethylene (Miralax) 17 Gm Pack) 17 gm PO Q6 [facility] Stop: 07/10/20 05:59 Last Admin: 06/12/20 05:44 Dose: 17 gm Documented by: Pregabalin (Pregabalin 100 Mg Cap) 100 mg PO BID [facility] Stop: 07/11/20 16:29 Last Admin: 06/11/20 17:31 Dose: 100 mg Documented by: Rosuvastatin Calcium (Crestor) 20 mg PO [facility] Stop: 07/03/20 20:59 Last Admin: 06/11/20 20:52 Dose: 20 mg Documented by: Senna/Docusate Sodium (Senokot S) 1 tab PO BID [facility] Stop: 07/03/20 20:59 Last Admin: 06/11/20 21:09 Dose: Not Given Documented by: Senna/Docusate Sodium (Docusate Sodium/Senna 50/8.6mg Tab) 2 tab PO [facility] Stop: 07/09/20 20:59 Last Admin: 06/11/20 20:54 Dose: 2 tab Documented by: Sodium Biphosphate/Sodium Phosphate (Sod Phosphate/Sod Biphosphate Enema 132 Ml Btl) 132 ml MI ONE PRN PRN Reason: Constipation Stop: 07/09/20 16:19 (1) Low back pain Back pain laterality: midline Chronicity: acute Sciatica presence: without sciatica Qualified Code(s): M54.5 - Low back pain
[2020-06-12] MEDS: INSULIN ASPART 100 UNITS/ML 3 ML PEN SC SCH ×4 (07:52→21:35)
[2020-06-12] MEDS: ISOSORBIDE MONO EXTENDED REL 30 MG TABCR PO SCH (07:53)
[2020-06-12] MEDS: LORATADINE 10 MG TAB PO SCH (07:53)
[2020-06-12] MEDS: ASPIRIN 81 MG ECTAB PO SCH (07:53)
[2020-06-12] MEDS: METOPROLOL TARTRATE 50 MG TAB PO SCH (07:53)
[2020-06-12] MEDS: INSULIN DETEMIR FLEXPEN/FLEX TOUCH 100 UNITS/ML 3ML SC SCH ×2 (07:54→21:35)
[2020-06-12] MEDS: PANTOprazole 40 MG TAB PO SCH (07:54)
[2020-06-12] MEDS: FUROSEMIDE 40 MG TAB PO SCH (07:55)
[2020-06-12] MEDS: DICLOFENAC SOD 1% GEL 100 GM TUBE EXT SCH ×2 (07:55→21:29)
[2020-06-12] MEDS: LIDOCAINE 5% 1 PATCH TD SCH (07:57)
[2020-06-12] MEDS: DOCUSATE SODIUM/SENNA 50/8.6MG TAB PO SCH ×4 (07:57→21:34)
[2020-06-12] MEDS: PREGABALIN 100 MG CAP PO SCH ×2 (08:01→21:29)
[2020-06-12] MEDS: lisinopriL 20 MG TAB PO SCH (08:02)
[2020-06-12] MEDS ORDERED: FUROSEMIDE 80 MG TAB PO SCH (09:00)
[2020-06-12 10:00] LABS: BUN Creatinine Ratio 23.3 (10-20); Calcium 8.5 mg/dl (8.5-10.1); Creatinine Clr Calc Pharmacy 53.8 ml/min; Est GFR (African American) 76.6; Est GFR (Non-African American) 66.1; Magnesium 2.4 mg/dl (1.8-2.4)
[2020-06-12] MEDS: ROSUVASTATIN CALCIUM 20 MG TAB PO SCH (21:29)
[2020-06-12] MEDS: METOPROLOL TARTRATE 25 MG TAB PO SCH (21:29)
[2020-06-12] MEDS: MONTELUKAST SODIUM 10 MG TABLET PO SCH (21:29)
[2020-06-12] MEDS ORDERED: LORazepam 0.25 MG/0.5 ML VIAL IV STA (22:11)
[2020-06-13] MEDS: POLYETHYLENE (MIRALAX) 17 GM PACK PO SCH ×4 (00:02→11:25)
[2020-06-13] MEDS: OXYCODONE/ACETAMINOPHEN 10-325 TAB PO PRN ×2 (01:32→10:09)
[2020-06-13] MEDS ORDERED: cefTRIAXone SODIUM 2,000 MG in DEXTROSE 5% 50 ML IV SCH (02:00)
[2020-06-13] MEDS: ACETAMINOPHEN 325 MG TAB PO PRN (05:41)
[2020-06-13] MEDS: LEVOTHYROXINE SODIUM 100 MCG TABLET PO SCH (05:41)
[2020-06-13] MEDS: PREGABALIN 100 MG CAP PO SCH ×2 (08:25→13:40)
[2020-06-13] MEDS: DOCUSATE SODIUM/SENNA 50/8.6MG TAB PO SCH (08:26)
[2020-06-13] MEDS: LIDOCAINE 5% 1 PATCH TD SCH (08:26)
[2020-06-13] MEDS: INSULIN DETEMIR FLEXPEN/FLEX TOUCH 100 UNITS/ML 3ML SC SCH (08:26)
[2020-06-13] MEDS: FUROSEMIDE 40 MG TAB PO SCH (08:27)
[2020-06-13] MEDS: PANTOprazole 40 MG TAB PO SCH (08:27)
[2020-06-13] MEDS: ASPIRIN 81 MG ECTAB PO SCH (08:27)
[2020-06-13] MEDS: METOPROLOL TARTRATE 50 MG TAB PO SCH (08:27)
[2020-06-13] MEDS: DICLOFENAC SOD 1% GEL 100 GM TUBE EXT SCH (08:27)
[2020-06-13] MEDS: ISOSORBIDE MONO EXTENDED REL 30 MG TABCR PO SCH (08:28)
[2020-06-13] MEDS: LORATADINE 10 MG TAB PO SCH (08:28)
[2020-06-13] MEDS: INSULIN ASPART 100 UNITS/ML 3 ML PEN SC SCH ×2 (08:28→12:09)
[2020-06-13] MEDS: lisinopriL 20 MG TAB PO SCH (08:29)
--- NOTE | 2020-06-13 08:59 | Hospitalist Progress Note ---
Date of Service June 13, 2020 Assessment & Plan (1) Left hip pain: Lumbar disc herniation with radiculopathy This is a 75-year-old female with significant PMH of CAD, chronic diastolic CHF, T2DM, HTN, HLD, CKD stage III, chronic narcotic use, DDD, hypothyroidism who presents to ED secondary to intractable left hip and low back pain x2 weeks. Moderate left hip pain initially believed to be secondary to osteoarthritis alone, referred pain in inner thigh of the left side could be secondary to left hip osteoarthritis CT of the hip did show moderate osteoarthritis without any fracture Left hip pain with movement of the hip joints especially external and internal rotation with radiation of pain to the inner thigh Orthopedic surgery consulted Recommended NSAID use(maybe harmful with history of diastolic CHF and CAD), lidocaine and physical therapy on top of a small dose of narcotics pain medication Recommended left hip injection with steroid as an outpatient Left hip pain worsened, she could hardly participate in physical therapy Dr. Carreno and discussed patient's presentation, Dr. Carreno believes her symptoms might be due to lumbar disc herniation and radiculopathy Patient is now s/p L3-L4 decompression and fusion, her back pain and left hip pain is now much improved (2) Low back pain: Lumbar disc herniation with radiculopathy has lumbar radiculopathy as evidenced by MRI of the lumbar spine No bladder and/or bowel problems No significant weakness of the left lower extremity Appreciate orthospine input and recommendation Now s/p L3-L4 decompression and fusion by Dr. Carreno 06/09, tolerated procedure well, except at night after surgery patient became confused and less responsive, that resolved by morning (post delirium) Preop recommendations discussed with cardiology (3) CAD (coronary artery disease): Patient denies chest pain or shortness of breath Continue ASA, statin, Imdur, metoprolol, lisinopril Denies any symptoms (4) Chronic diastolic CHF (congestive heart failure): euvolemic, per pt baseline weight ~ 200lb continue lisinopril, metoprolol, imdur daily weights, strict I and O baseline Cr 1.2 some elevation in BUN No signs of fluid overload (5) Nonspecific ST-T wave electrocardiographic changes: pt with inferior t wave inversions, new from prior ecg 11/2019 pt denies CP/SOB appears stable and euvolemic from cardiac standpoint - repeated ecg and obtained echo - discussed with cardiology for preop eval, cont. home meds after surgery (6) HTN (hypertension): blood pressure stable continue metoprolol, lisinopril, Imdur Blood pressure remains lower side of normal Discussed with cardiology, recommend to resume home hypertensive medication regimen after surgery (7) DM type 2 (diabetes mellitus, type 2): a1c 7.8 on Levemir/novolog, bydureon as outpt consult glycemic pharmacy, appreciate their management (8) Hypothyroidism: continue levothyroxine (9) Chronic pain: pt on chronic percocet, lyrica confirmed via pdmd (10) CKD (chronic kidney disease) stage 3, GFR 30-59 ml/min: baseline cr 1.5 bun/cr 40s and 1.2 avoid nephrotoxic agents, monitor bmp-creatinine has been normalized (11) HLD (hyperlipidemia): continue statin (12) DVT prophylaxis: Lovenox 30 mg daily Disposition: Admitted to medical telemetry due to EKG change, patient to be dis charged home with home health, initially planned for [facility], however patient now declines Follow-up: PCP Dr. Boland upon discharge Admission and Anticipated Discharge Date Admission Date: June 03, 2020 Subjective Patient is currently sitting in the chair, in no acute distress. Back pain controlled, leg symptoms markedly improved. Patient seen by Dr. Carreno, feels that patient is safe to go home. maintenance manager aware, will arrange home health and home PT. Patient denies any fevers, chills, chest pain, shortness of breath, abdominal pain, nausea or vomiting. She is very interested in going home and does not wish to go to [facility] as previously planned. Review of Systems Review of Systems: All systems reviewed & are unremarkable except as noted in HPI & below Constitutional: no fever and no chills Respiratory: no cough and no dyspnea Cardiovascular: no chest pain and no palpitations Gastrointestinal: no abdominal pain, no nausea and no vomiting Physical Exam Physical Exam: Physical Exam: Elderly obese female, sitting up in a chair, in no acute distress Constitutional: well developed, well nourished, + obese Eyes: PERRL, EOMI, conjunctivae normal, anicteric sclerae ENMT: external ear and nose normal, oropharynx normal Neck: trachea midline Respiratory: normal respiratory effort; no respiratory distress Auscultation: lungs clear to auscultation bilaterally, somewhat diminished breath sounds Cardiovascular: Rate/Rhythm: regular rate and regular rhythm Heart Sounds: no murmur Gastrointestinal (Abdomen): Inspection/Auscultation: abdomen normal to inspection; abdomen not distended Percussion/Palpation: abdomen soft, obese Musculoskeletal: Moves extremities spontaneously, without much difficulty, ambulates with a walker and assistance Neurologic: moves all extremities, Alert, awake and oriented x3, answers questions mostly appropriately Results & Data Results & Data ([facility]) Vital Signs (Past 12 Hours) Vital Signs Temp Pulse Pulse Resp BP Pulse Ox 06/13/20 08:30 36.4 C L 74 17 124/51 L 98 06/13/20 04:48 37.3 C 76 20 165/73 H 98 06/13/20 01:11 77 06/12/20 23:32 36.9 C 75 18 136/68 97 Laboratory Results 06/13/20 06/13/20 06/12/20 Range/Units 08:24 08:06 20:51 Sodium Pending (136-145) mmol/L Potassium Pending (3.5-5.1) mmol/L Chloride Pending (98-107) mmol/L Carbon Dioxide Pending (21-32) mmol/L Anion Gap Pending (3-11) BUN Pending (7-18) mg/dl Creatinine Pending (0.6-1.2) mg/dl Est Cr Clr Drug Dosing Pending ml/min Est GFR ( Amer) Pending Est GFR (Non-Af Amer) Pending BUN/Creatinine Ratio Pending (10-20) Glucose Pending (70-99) mg/dl POC Glucose 125 H 101 H (70-99) mg/dl Calcium Pending (8.5-10.1) mg/dl Phosphorus (2.5-4.9) mg/dl Magnesium (1.8-2.4) mg/dl 06/12/20 06/12/20 06/12/20 Range/Units 16:29 11:23 07:34 Sodium 141 (136-145) mmol/L Potassium 4.0 (3.5-5.1) mmol/L Chloride 108 H (98-107) mmol/L Carbon Dioxide 26 (21-32) mmol/L Anion Gap 7.0 (3-11) BUN 20 H (7-18) mg/dl Creatinine 0.85 (0.6-1.2) mg/dl Est Cr Clr Drug Dosing 53.8 ml/min Est GFR ( Amer) 76.6 Est GFR (Non-Af Amer) 66.1 BUN/Creatinine Ratio 23.3 H (10-20) Glucose 147 H (70-99) mg/dl POC Glucose 184 H 120 H (70-99) mg/dl Calcium 8.5 (8.5-10.1) mg/dl Phosphorus 3.0 (2.5-4.9) mg/dl Magnesium 2.4 (1.8-2.4) mg/dl Medications Administered Current Inpatient Medications Acetaminophen (Acetaminophen 325 Mg Tab) 650 mg PO Q4H PRN PRN Reason: pain/fever Stop: 07/03/20 13:08 Last Admin: 06/13/20 05:41 Dose: 650 mg Documented by: Acetaminophen (Acetaminophen 500 Mg Tab) 1,000 mg PO Q8H PRN PRN Reason: MILD Pain Scale 1,2,3 & Pre PT Stop: 07/09/20 16:19 Last Admin: 06/11/20 08:33 Dose: 1,000 mg Documented by: Al Hydrox/Mg Hydrox/Simethicone (Maalox) 30 ml PO Q6H PRN PRN Reason: Dyspepsia Stop: 07/03/20 13:08 Al Hydrox/Mg Hydrox/Simethicone (Aluminum/Magnesium Susp 30 Ml Udc) 30 ml PO Q6H PRN PRN Reason: Dyspepsia Stop: 07/09/20 16:19 Aspirin ([facility]ab) [facility] [place] Stop: 07/04/20 08:59 Last Admin: 06/13/20 08:27 Dose: 81 mg Documented by: Bisacodyl (Bisacodyl 10 Mg Supp) 10 mg CA DAILY PRN PRN Reason: Constipation Stop: 07/09/20 16:19 Calcium Carbonate (Tums) 500 mg PO TID PRN PRN Reason: Indigestion Stop: 07/05/20 00:00 Last Admin: 06/05/20 00:34 Dose: 500 mg Documented by: Dextrose (Dextrose 50%) 25 - 50 ml IV UD PRN; Protocol PRN Reason: Hypoglycemia Protocol Stop: 07/03/20 16:36 Diclofenac Sodium (Voltaren 1% Top) 2 gm EXT BID [facility] Stop: 07/04/20 20:59 Last Admin: 06/13/20 08:27 Dose: Not Given Documented by: Famotidine (Famotidine 20 Mg Tab) 20 mg PO Q12H PRN PRN Reason: Dyspepsia Stop: 07/09/20 16:19 Fluticasone Propionate (Flonase) 1 sprays BLAKE DAILY PRN PRN Reason: Allergy Symptoms Stop: 07/03/20 16:59 Furosemide (Furosemide 40 Mg Tab) 40 mg PO QAM [facility] Stop: 07/12/20 08:59 Last Admin: 06/13/20 08:27 Dose: 40 mg Documented by: Glucagon (Glucagen) 1 mg SQ UD PRN; Protocol PRN Reason: Hypoglycemia Protocol Stop: 07/03/20 16:36 Glucose (Dex4 Glucose) 4 - 8 tabs PO UD PRN; Protocol PRN Reason: Hypoglycemia Protocol Stop: 07/03/20 16:36 Glucose (Glucose 40%) 15 - 30 gm PO UD PRN; Protocol PRN Reason: Hypoglycemia Protocol Stop: 07/03/20 16:36 Hydromorphone HCl (Hydromorphone Inj 0.5 Mg/0.5 Ml Syr) 0.5 mg IV Q4H PRN PRN Reason: Pain Stop: 06/23/20 23:52 Last Admin: 06/13/20 00:21 Dose: 0.5 mg Documented by: Promethazine HCl 12.5 mg/ (Sodium Chloride) 50.5 mls @ 204 mls/hr IV Q6H PRN PRN Reason: Nausea &/or Vomiting Stop: 07/09/20 16:19 Ceftriaxone Sodium 2,000 mg/ (Dextrose) 70 mls @ 140 mls/hr IV Q24H [facility] Stop: 06/20/20 01:59 Last Infusion: 06/13/20 02:13 Dose: Infused Documented by: Influenza Virus Vaccine Quadrival (Do Not Administer Flu Vaccine) 1 ea N/A PRN PRN PRN Reason: Notification Stop: 07/09/20 16:19 Insulin Aspart (Novolog Flexpen) 0 units SC [facility]; Protocol Stop: 07/03/20 17:04 Last Admin: 06/13/20 08:28 Dose: 2 units Documented by: Insulin Detemir (Insulin Detemir Flexpen/Flex Touch 100 Units/Ml 3ml) 24 units SC BID [facility]; Protocol Stop: 07/12/20 20:59 Last Admin: 06/13/20 08:26 Dose: 24 units Documented by: Isosorbide Mononitrate (Imdur Extended Rel) 30 mg PO [facility] Stop: 07/04/20 08:59 Last Admin: 06/13/20 08:28 Dose: 30 mg Documented by: Levothyroxine [facility]) [facility] Stop: 07/04/20 06:29 Last Admin: 06/13/20 05:41 Dose: 100 mcg Documented by: Lidocaine (Lidoderm 5%) 1 patch TD [facility] Stop: 07/04/20 08:59 Last Admin: 06/13/20 08:26 Dose: Not Given Documented by: Lisinopril (Lisinopril 20 Mg Tab) 20 mg PO [facility] Stop: 07/04/20 08:59 Last Admin: 06/13/20 08:29 Dose: 20 mg Documented by: Loratadine (Claritin) 10 mg PO [facility] Stop: 07/04/20 08:59 Last Admin: 06/13/20 08:28 Dose: 10 mg Documented by: Lorazepam (Lorazepam 0.5 Mg Tab) 0.5 mg PO Q8H PRN PRN Reason: Sedation/Anxiety Stop: 07/09/20 16:19 Magnesium Hydroxide (Milk Of Magnesia) 30 ml PO Q6H PRN PRN Reason: Constipation Stop: 07/03/20 13:08 Last Admin: 06/08/20 18:04 Dose: 30 ml Documented by: Magnesium Hydroxide (Magnesium Hydroxide Susp 30 Ml Udc) 30 ml PO DAILY PRN PRN Reason: Constipation Stop: 07/09/20 16:19 Metoclopramide HCl (Metoclopramide Hcl Inj 5 Mg/Ml 2 Ml Vial) 10 mg IV Q6H PRN PRN Reason: Nausea &/or Vomiting Stop: 07/09/20 16:19 Metoprolol Tartrate (Lopressor) 25 mg PO QPM [facility] Stop: 07/03/20 20:59 Last Admin: 06/12/20 21:29 Dose: 25 mg Documented by: Metoprolol Tartrate (Metoprolol Tartrate 50 Mg Tab) 50 mg PO [facility] Stop: 07/10/20 08:59 Last Admin: 06/13/20 08:27 Dose: 50 mg Documented by: Miscellaneous (Carbohydrates For Hypoglycemia) 15 - 30 gm PO UD PRN PRN Reason: Hypoglycemia Protocol Stop: 07/03/20 16:36 Last Admin: 06/04/20 16:39 Dose: 15 gm Documented by: Miscellaneous (Remove Lidoderm Patch) 1 ea N/A DAILY@2100 [facility] Stop: 07/03/20 20:59 Last Admin: 06/12/20 21:35 Dose: Not Given Documented by: Miscellaneous Information (Consult Glycemic Management Pharmacy) 1 ea N/A UD PRN; Protocol PRN Reason: Consult Stop: 07/03/20 16:56 Montelukast Sodium (Singulair) 10 mg PO [facility] Stop: 07/03/20 20:59 Last Admin: 06/12/20 21:29 Dose: 10 mg Documented by: Naloxone HCl (Naloxone Hcl 0.4 Mg/1 Ml Vial/Carp) 0.1 mg IV Q5M PRN; Protocol PRN Reason: Oversedation/Resp Depression Stop: 07/09/20 16:19 Olanzapine (Olanzapine 10 Mg/2.1 Ml Sdv) 2.5 mg IM Q4H PRN PRN Reason: Anxiety/Agitation Stop: 07/10/20 02:06 Ondansetron HCl (Zofran) 4 mg IV Q6H PRN PRN Reason: Nausea Stop: 07/03/20 13:08 Last Admin: 06/05/20 09:39 Dose: 4 mg Documented by: Ondansetron HCl (Ondansetron Inj 2 Mg/Ml 2 Ml Vial) 4 mg IV Q6H PRN PRN Reason: Nausea &/or Vomiting Stop: 07/09/20 16:19 Ondansetron HCl (Ondansetron 4 Mg Od Tab) 4 mg PO Q6H PRN PRN Reason: Nausea Stop: 07/09/20 16:19 Oxycodone/Acetaminophen (Oxycodone/Acetaminophen 10-325 Tab) 1 tab PO Q4H PRN PRN Reason: Pain Stop: 06/26/20 01:33 Last Admin: 06/13/20 01:32 Dose: 1 tab Documented by: Pantoprazole Sodium (Protonix) 40 mg PO [facility] Stop: 07/04/20 08:59 Last Admin: 06/13/20 08:27 Dose: 40 mg Documented by: Pneumococcal Polyvalent Vaccine (Do Not Administer Pneumococcal Vaccine) 1 ea N/A PRN PRN PRN Reason: Notification Stop: 07/09/20 16:19 Polyethylene Glycol (Miralax Powder Packet) 17 gm PO DAILY PRN PRN Reason: Constipation Stop: 07/03/20 16:59 Polyethylene Glycol (Polyethylene (Miralax) 17 Gm Pack) 17 gm PO BID [place] Stop: 07/09/20 20:59 Last Admin: 06/13/20 08:26 Dose: Not Given Documented by: Polyethylene Glycol (Polyethylene (Miralax) 17 Gm Pack) 17 gm PO Q6 [facility] Stop: 07/10/20 05:59 Last Admin: 06/13/20 05:42 Dose: Not Given Documented by: Pregabalin (Pregabalin 100 Mg Cap) 200 mg PO TID [facility] Stop: 07/12/20 20:59 Last Admin: 06/13/20 08:25 Dose: 200 mg Documented by: Rosuvastatin Calcium (Crestor) 20 mg PO HS [facility] Stop: 07/03/20 20:59 Last Admin: 06/12/20 21:29 Dose: 20 mg Documented by: Senna/Docusate Sodium (Senokot S) 1 tab PO BID [facility] Stop: 07/03/20 20:59 Last Admin: 06/13/20 08:26 Dose: Not Given Documented by: Senna/Docusate Sodium (Docusate Sodium/Senna 50/8.6mg Tab) 2 tab PO [facility] Stop: 07/09/20 20:59 Last Admin: 06/12/20 21:34 Dose: Not Given Documented by: Sodium Biphosphate/Sodium Phosphate (Sod Phosphate/Sod Biphosphate Enema 132 Ml Btl) 132 ml CA ONE PRN PRN Reason: Constipation Stop: 07/09/20 16:19 (1) Low back pain Back pain laterality: midline Chronicity: acute Sciatica presence: without sciatica Qualified Code(s): M54.5 - Low back pain
[2020-06-13 09:37] LABS: BUN Creatinine Ratio 21.1 (10-20); Calcium 8.7 mg/dl (8.5-10.1); Creatinine Clr Calc Pharmacy 51.4 ml/min; Est GFR (African American) 72.5; Est GFR (Non-African American) 62.5
--- NOTE | 2020-06-13 13:34 | Orthopedic Progress Note ---
Date of Service June 13, 2020 Assessment & Plan (1) Lumbar disc herniation with radiculopathy: Admission and Anticipated Discharge Date Admission Date: June 03, 2020 This time she is progressing probably has marked improvement of her pain. She is okay from an orthopedic standpoint for discharge home. Subjective Back pain controlled leg symptoms markedly improved. Physical Exam Physical Exam: Patient is good strength testing appears comfortable. Results & Data ([facility]) Vital Signs (Past 12 Hours) Vital Signs Temp Pulse Pulse Resp BP BP Pulse Ox 06/13/20 11:10 37.1 C 72 17 116/56 L 95 06/13/20 08:34 83 06/13/20 08:30 36.4 C L 74 17 124/51 L 98 06/13/20 04:48 37.3 C 76 20 165/73 H 98
--- NOTE | 2020-06-13 15:01 | Discharge Summary ---
Date of Service June 13, 2020 Admission HPI Per Admitting Provider This is a 75-year-old female with significant PMH of CAD, chronic diastolic CHF, T2DM, HTN, HLD, CKD stage III, chronic narcotic use, DDD, hypothyroidism who presents to ED secondary to intractable left hip and low back pain x2 weeks. Of significance history slightly unreliable due to significant narcotic administration in ED due to intractable pain. She admits to having intractable pain that began approximately 2 weeks ago. Pain is mostly in the left groin region but does radiate down posterior aspect of leg into heel. She also admits to pain wrapping around to her low back. Pain is constant in nature but waxes and wanes in severity, rated 9 out of 10, described as a sharp shooting pain. She has been taking her prescribed Percocet, "but I have been taking more than I should because the pain has been unbearable." Also been taking ibuprofen without significant relief. Pain is inhibiting patient's ability to walk and do ADLs. Of significance patient was seen and evaluated by Dr. riley and did u ndergo SI injection on 05/30/2020. She feels pain has been more since. She does admit to having prior neck surgery done by Dr. Carreno and unfortunately has suffered from chronic pain. She denies any recent illness and is otherwise been in a good state of health. She does have chronic diastolic CHF and her weights have been stable around 200. She denies any recent fever, chills, sweats, lightheadedness, dizziness, syncope, chest pain, shortness breath, cough, nausea, vomiting, diarrhea, abdominal pain, change in bowel or urinary habits. She admits to taking stool softener secondary to narcotic use. In ED patient made hemodynamically stable. Lab work generally unremarkable except for mild elevation BUN 44, creatinine 1.12, glucose 236. Which revealed degenerative change of lumbar spine, moderate osteoarthritic changes within both hips, mild multilevel spondylitic changes with mild's spinal canal narrowing at L1-L2 and L2-L3 levels. In ED patient was administered 10 mg IV dexamethasone, lidocaine patch and multiple rounds of IV Dilaudid. She is saturating well on room air but does have slight confusion. Admission Exam Per Admitting Provider Constitutional: WD/WN, female, vitals as above, NAD, sitting up in bed, pleasant, conversing easily Head: Normocephalic, Atraumatic Eyes: PERRL, conjunctivae normal, anicteric sclerae ENMT: external ear and nose normal, oropharynx normal Neck: trachea midline, no thyromegaly normal visual inspection Respiratory: normal respiratory effort, lungs clear to auscultation, no wheeze, rales, rhonchi. Normal insp/exp effort, no accessory muscle use Cardiovascular: RRR, no murmur, no edema Vessels: no JVD or carotid bruit Chest: normal inspection of chest Abdomen: Truncal obesity, normal bowel sounds, soft, nontender, no hepatosplenomegaly Musculoskeletal: no cyanosis or clubbing, active range of motion to extremities x4. Pain to palpation to left trochanteric bursa region, pain with internal and external rotation of hip, limited range of motion to left leg due to pain. Skin: no rashes, warm and dry normal turgor Neurologic: PERRL, EOMI, accommodation nl, no face palsy, no dysarthria CN's II-XI intact bilaterally and moves all extremities Psychiatric: A+Ox3 but mild confusion in setting of narcotics, euthymic affect Lymphatic: no cervical or axillary lymphadenopathy : deferred Principal Diagnosis Lumbar disc condition with radiculopathy and neuro deficit Discharge Exam Physical Exam: Elderly obese female, sitting up in a chair, in no acute distress Constitutional: well developed, well nourished, + obese Eyes: PERRL, EOMI, conjunctivae normal, anicteric sclerae ENMT: external ear and nose normal, oropharynx normal Neck: trachea midline Respiratory: normal respiratory effort; no respiratory distress Auscultation: lungs clear to auscultation bilaterally, somewhat diminished breath sounds Cardiovascular: Rate/Rhythm: regular rate and regular rhythm Heart Sounds: no murmur Gastrointestinal (Abdomen): Inspection/Auscultation: abdomen normal to inspection; abdomen not distended Percussion/Palpation: abdomen soft, obese Musculoskeletal: Moves extremities spontaneously, without much difficulty, ambulates with a walker and assistance Neurologic: moves all extremities, Alert, awake and oriented x3, answers questions mostly appropriately Discharge Data Allergies Allergy/AdvReac Type Severity Reaction Status Date / Time carvedilol AdvReac Mild HEART Verified 06/03/20 09:16 RACING Consultations 06/03/20 13:09 ED Decision to Admit Stat 06/03/20 13:10 ED Decision to Admit Stat 06/03/20 13:11 Consult Case Management - Discharge Planning Routine 06/03/20 16:37 Consult Orthopedic Surgery Routine 06/05/20 14:15 Consult Orthopedic Surgery Routine 06/08/20 11:32 Consult Cardiology Routine 06/09/20 16:20 Consult Case Management - Discharge Planning Routine Procedures Performed Operation Date: 06/09/20 07:00 Actual Procedures p Lumbar Decompression and Fusion L3-L4, Application of Bone Morphogenetic Protein(Not Applicable) - Chadwick Carreno DO Ordered Studies 06/03/20 10:16 MR lumbar spine wo con Stat IMPRESSION: 1. Mild multilevel spondylytic changes with minor spinal canal narrowing at the L1-2, L2-3 levels. 2. No evidence of high-grade spinal stenosis 3. 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 ADDENDUM Suboptimal study due to the patient's body habitus. There is suggestion of a small focal left lateral foraminal disc protrusion at L3-L4 resulting in severe left-sided neural foraminal narrowing and compression of the exiting left L3 nerve root. This is best seen on sagittal image 12 of 16 and axial image 15 of 30. 06/05/20 11:08 CT hip LT wo con Routine IMPRESSION: 1. Significant degenerative change. 2. No evidence for acute fracture or dislocation. 06/09/20 13:00 FL fluoroscopy <1hr Routine FL lumbar spine 2-3V Routine 06/10/20 09:00 US liver Routine IMPRESSION: 1. Trace gallbladder sludge. No gallstones. No gallbladder wall thickening. 2. No significant change in the intra and extra hepatic bile duct dilatation. Hospital Course (1) Left hip pain: Lumbar disc herniation with radiculopathy This is a 75-year-old female with significant PMH of CAD, chronic diastolic CHF, T2DM, HTN, HLD, CKD stage III, chronic narcotic use, DDD, hypothyroidism who presents to ED secondary to intractable left hip and low back pain x2 weeks. Moderate left hip pain initially believed to be secondary to osteoarthritis alone, referred pain in inner thigh of the left side could be secondary to left hip osteoarthritis CT of the hip did show moderate osteoarthritis without any fracture Left hip pain with movement of the hip joints especially external and internal rotation with radiation of pain to the inner thigh Orthopedic surgery consulted Recommended NSAID use(maybe harmful with history of diastolic CHF and CAD), lidocaine and physical therapy on top of a small dose of narcotics pain m edication Recommended left hip injection with steroid as an outpatient Left hip pain worsened, she could hardly participate in physical therapy Dr. Carreno and discussed patient's presentation, Dr. Carreno believes her symptoms might be due to lumbar disc herniation and radiculopathy Patient is now s/p L3-L4 decompression and fusion, her back pain and left hip pain is now much improved (2) Low back pain: Lumbar disc herniation with radiculopathy has lumbar radiculopathy as evidenced by MRI of the lumbar spine No bladder and/or bowel problems No significant weakness of the left lower extremity Appreciate orthospine input and recommendation Now s/p L3-L4 decompression and fusion by Dr. Carreno 06/09, tolerated procedure well, except at night after surgery patient became confused and less responsive, that resolved by morning (post delirium) Preop recommendations discussed with cardiology (3) CAD (coronary artery disease): Patient denies chest pain or shortness of breath Continue ASA, statin, Imdur, metoprolol, lisinopril Denies any symptoms (4) Chronic diastolic CHF (congestive heart failure): euvolemic, per pt baseline weight ~ 200lb continue lisinopril, metoprolol, imdur daily weights, strict I and O baseline Cr 1.2 some elevation in BUN No signs of fluid overload (5) Nonspecific ST-T wave electrocardiographic changes: pt with inferior t wave inversions, new from prior ecg 11/2019 pt denies CP/SOB appears stable and euvolemic from cardiac standpoint - repeated ecg and obtained echo - discussed with cardiology for preop eval, cont. home meds after surgery (6) HTN (hypertension): blood pressure stable continue metoprolol, lisinopril, Imdur Blood pressure remains lower side of normal Discussed with cardiology, recommend to resume home hypertensive medication regimen after surgery (7) DM type 2 (diabetes mellitus, type 2): a1c 7.8 on Levemir/novolog, bydureon as outpt consult glycemic pharmacy, appreciate their management (8) Hypothyroidism: continue levothyroxine (9) Chronic pain: pt on chronic percocet, lyrica confirmed via pd[facility] (10) CKD (chronic kidney disease) stage 3, GFR 30-59 ml/min: baseline cr 1.5 bun/cr 40s and 1.2 avoid nephrotoxic agents, monitor bmp-creatinine has been normalized (11) HLD (hyperlipidemia): continue statin (12) DVT prophylaxis: Lovenox 30 mg daily Disposition: Admitted to medical telemetry due to EKG change, patient to be discharged home with home health, initially planned for [facility], however patient now declines Follow-up: PCP Dr. Boland upon discharge Total Time Total Time Spent Total Time Spent (In Minutes): 40 Total Time Includes: Examination of the Patient, Discharge Planning, Medication Reconciliation and Communication With Other Providers Discharge Plan Discharge Items Patient Disposition: Home - Home Health Services Reason For Visit: BACK PAIN Discharge Diagnosis: Lumbar disc condition with radiculopathy and neuro deficit Activity: As commented below Non-emergency contact: Primary Care Provider Call non-emergency contact if: you have any medication questions Follow-up/Referrals: Jazzmine Boland, [Primary Care Provider] - 06/16/20 11:20 am ( 06/16/2020 11:20 AM Provider Kristie Mcgill MD Department Internal Medicine [facility] ) Diet: Carb Consistent or DM2 and Heart Healthy Addtl Attending Provider Instructions: ACTIVITY RECOMMENDATIONS: SELF CARE INSTRUCTIONS AFTER THORACIC/LUMBAR FUSIONS 1. You may walk to your tolerance. It is good exercise for your legs and back. Expect some back and intermittent leg aches and pains. 2. You may perform "counter-top" level activities (make a sandwich, brionna with a project, etc.). 3. No bending or lifting of more than 10 pounds or back twisting of any nature (roll like a log when turning in bed). 4. You may ride in a car for 20-30 minutes at a time. No driving until after your first visit with your doctor. 5. Frequent changes of position and restricting sitting to 30 minutes at a time will help limit the amount of back spasms and stiffness you may experience. 6. You may discontinue the use of ambulatory aids (cane, crutches, etc.) once your strength and confidence allow. 7. You may international logistics manager the shower and let water strike your incision when you arrive home at least once daily. Do not take a tub bath, sit in a hot tub or go into a swimming pool until after your first recheck in the office. SPECIAL CARE INSTRUCTIONS: VERY IMPORTANT TO READ AND REVIEW A. Your surgical incision has been closed with a cosmetic suture under the skin that will dissolve in about 6 weeks. In 14 days, you can use a pair of clean scissors and cut the suture that is left outside of the skin at the ends of your incision. 1. The small skin tapes can be removed 7 days after surgery if they have not fallen off by that point. 2. You may keep the wound open to air as much as possible to promote healing after post-op day number 5 unless told otherwise by your doctor. 3. If you think the wound looks like it is becoming infected (redness or worsening drainage) and/or you are experiencing fever, chill or worsening back pain and muscle spasms, contact the office so that we may evaluate you as soon as possible. B. Complications are uncommon, but please contact us if you have any signs or symptoms of: 1. wound infection (fever higher than 102.5 degrees F, redness, separation of wound, drainage, or increasing pain from the incision) 2. blood clots in legs (pain, swelling, redness and warmth in legs) 3. urinary tract infection (fever higher than 102.5 degrees F, burning upon urination or increased frequency of urination) 4. nerve problems (inability to walk on your toes or heels, numbness, loss of bowel or bladder control) 5. any other symptoms that concern you C. Please call the office at if you have any concerns or questions about your operation or recovery. D. No smoking! Smoking drastically decreases the chance of a solid fusion. E. Do not take any anti-inflammatory medications (Indocin, Advil, Motrin, Asp irin, Naprosyn, etc.) as these may inhibit the chance of a solid fusion. Tylenol is okay to take for pain. MANAGING PAIN AFTER SPINAL SURGERY 1. Narcotic medication is intended for short-term use and will be provided for surgical pain. Surgical pain usually lasts for a period of 4-6 weeks. Narcotic medication includes Percocet, Vicodin, Darvocet, Tylenol #3 or Lortab. 2. Longer-term pain is more appropriately treated with non-narcotic medication such as Tylenol ES. 3. Muscle spasm is not appropriately treated with narcotics. Muscle relaxers such as Soma, Flexeril or Skelaxin can be used along with Tylenol ES. 4. Remember that we all live with some "aches and pains". This is not unusual or uncommon after an injury or as we get older. a. Back pain is expected and may include muscle spasms for 4 to 6 weeks after surgery. The pain should gradually improve. If the pain worsens for no apparent reason, please contact the office. b. Intermittent leg pain may also be experienced and should not be concerned about unless it worsens for no apparent reason. If so, please contact the office. 5. We will provide appropriate medication within the normal guidelines of their prescribed use. We will also be very cautious and aware of potential abuse and extended duration of patients' medication needs. a. Pain medications are for your comfort and to assist with sleep and rest so that the tissue can heal. They are not provided in order to return to normal activity and should not be used through the day. To do so or worsening pain at night can result from ongoing tissue damage and development of tolerance to the prescribed medicine. 6. Please allow 2-3 days to process refills. Prescriptions will not be mailed but must be picked up at the office. FOLLOW UP VISIT: Keep your scheduled follow-up appointment. Any questions, please call the office at . Addtl Sales Project Administrator Provider Instructions: Follow-up with your primary care doctor, Dr. Boland, on June 16 as is already scheduled for you. For pain you can take your home Percocet and Lyrica as already prescribed for you. Make sure to read instructions above, by Dr. Carreno, regarding your postoperative care. Make sure to prevent constipation, take MiraLAX daily as needed. Pending Studies at Discharge: No Stand-Alone Forms: My Vol[employer], Smoking Cessation Medications and DC Order Prescriptions: New pregabalin [Lyrica] 100 mg Capsule 200 mg PO TID 10 Days Qty: 60 RF: 0 Continued (DME) OneTouch Verio test strips strip See Dose Instructions .ROUTE .MEDSUPPLY Qty: 120 RF: 2 lisinopril 20 mg tablet 20 mg PO QAM RF: 0 isosorbide mononitrate 30 mg tablet extended release 24 hr 30 mg PO QAM RF: 0 oxycodone-acetaminophen 10-325 mg tablet 1 tab PO QID PRN (Reason: Pain) RF: 0 furosemide 80 mg tablet 80 mg PO QAM RF: 0 insulin aspart U-100 [Novolog U-100 Insulin aspart] 100 unit/mL solution See Rx Instructions .ROUTE .COMPLEX RF: 0 pantoprazole 40 mg tablet,delayed release (DR/EC) 40 mg PO QAM RF: 0 metoprolol tartrate 50 mg tablet 50 mg PO QAM RF: 0 metoprolol tartrate 50 mg tablet 25 mg PO QPM RF: 0 montelukast 10 mg tablet 10 mg PO HS RF: 0 albuterol sulfate 90 mcg/actuation HFA aerosol inhaler 2 puff inhalation Q4H PRN (Reason: Cough/SOB/Wheezing) RF: 0 fluticasone propionate 50 mcg/actuation spray,suspension 1 spray INTRANASAL DAILY PRN (Reason: Allergy Symptoms) RF: 0 loratadine 10 mg tablet 10 mg PO QAM RF: 0 rosuvastatin 20 mg tablet 20 mg PO HS RF: 0 Levemir U-100 Insulin 100 unit/mL solution 30 unit SUBCUT BID RF: 0 Bydureon 2 mg/0.65 mL pen injector 2 mg SUBCUT WK RF: 0 aspirin 81 mg Tablet,Delayed Release (Dr/Ec) 81 mg PO QAM RF: 0 levothyroxine 100 mcg tablet 100 mcg PO QAM RF: 0 polyethylene glycol 3350 17 gram/dose Powder 17 g PO DAILY PRN (Reason: Constipation) RF: 0 Discharge Orders: Discharge Order (Routine); Ordered 06/13/20 Ordered By: Gregorio Griffiths/Other Patient Handouts: Managing Type 2 Diabetes Admission Data Admit Date/Time: 06/03/20 13:09 Attending Provider: Gregorio Chicas Admit Provider: Brenda Fernandez Primary Care Provider: Jazzmine Boland Other Providers: Brenda Fernandez ; Chadwick Carreno ; Amanda Cedeno ; Jules Perkins ; Greg Hawthorne ; Santa Childress Thomas J ; Kallie Aquino ; Jairo Blair ; Lawrence Ellis ; Kenji Jacobs ; Lawrence Leigh ; Pedro Anderson. ; Kenji Chávez ; Sergio Carrero ; Mikhail Quiñones ; Chavez Moore ; Marv Krishnan ; Nhan Ny ; Kallie Solitario ; Carl Lackey ; Ceferino Fierro ; Bia Demarco ; Gabriel Streeter ; Brianna Horenr ; Nuno Lopez ; [facility]
== END 2020-06-13 15:48 | disposition home health service (06) | DRG 454 ==
LOC: ED 08:28 → 2W 13:09 → SUATTDRO 13:09 → 2W 16:00

== ENCOUNTER 2021-03-07 08:03 | Observation (INO) ==
--- NOTE | 2021-01-30 15:13 | PAT Medication Instructions ---
Medication Instructions Date of Service January 30, 2021 Home Medications Medication Instructions Recorded blood-glucose meter #1 ea 11/02/20 lancets #100 ea 11/02/20 isosorbide mononitrate 30 mg 30 mg PO QAM #90 tab 11/17/20 tablet,extended release 24 hr albuterol sulfate 90 mcg/actuation 2 puff INHALATION Q4H PRN #6.7 g 12/02/20 aerosol inhaler diclofenac sodium 75 mg 75 mg PO BID #60 tab 12/09/20 tablet,delayed release loratadine 10 mg tablet 10 mg PO QAM #90 tab 01/04/21 blood sugar diagnostic #100 ea 01/05/21 insulin aspart U-100 100 unit/mL See Rx Instructions .ROUTE 01/06/21 subcutaneous solution .COMPLEX #10 ml spironolactone 25 mg tablet 25 mg PO DAILY #90 tab 01/16/21 cholecalciferol (vitamin D3) 1,250 50,000 unit PO WEEKLY 42 Days #6 01/17/21 mcg (50,000 unit) capsule cap clotrimazole-betamethasone 1 1 applic TOPICAL BID 14 Days #45 g 01/17/21 %-0.05 % topical cream levothyroxine 100 mcg tablet 100 mcg PO QAM #90 tab 01/18/21 oxycodone-acetaminophen 5 mg-325 1 tab PO Q8H PRN #90 tab 01/18/21 mg tablet pregabalin 200 mg capsule 200 mg PO TID #90 cap 01/18/21 rosuvastatin 20 mg tablet 20 mg PO HS #90 tab 01/18/21 Bydureon 2 mg SUBCUT WK Levemir U-100 Insulin 30 unit SUBCUT BID aspirin 81 mg PO QAM fluticasone propionate 1 spray INTRANASAL DAILY PRN metoprolol tartrate 25 mg PO QPM metoprolol tartrate 50 mg PO QAM montelukast 10 mg PO HS pantoprazole 40 mg PO QAM furosemide 80 mg tablet 80 mg PO QAM isosorbide mononitrate 30 mg tablet,extended release 24 hr 30 mg PO QAM albuterol sulfate 90 mcg/actuation aerosol inhaler 2 puff INHALATION Q4H PRN diclofenac sodium 75 mg tablet,delayed release 75 mg PO BID loratadine 10 mg tablet 10 mg PO QAM insulin aspart U-100 100 unit/mL subcutaneous solution See Rx Instructions spironolactone 25 mg tablet 25 mg PO DAILY cholecalciferol (vitamin D3) 1,250 mcg (50,000 unit) capsule 50,000 unit PO WEEKLY clotrimazole-betamethasone 1 %-0.05 % topical cream 1 applic TOPICAL BID levothyroxine 100 mcg tablet 100 mcg PO QAM oxycodone-acetaminophen 5 mg-325 mg tablet 1 tab PO Q8H PRN pregabalin 200 mg capsule 200 mg PO TID rosuvastatin 20 mg tablet 20 mg PO HS docusate sodium [Stool Softener] 100 mg PO HS lisinopril 40 mg PO QAM Continue as directed Bydureon 2 mg SUBCUT WK (just do not give injection on day of surgery) cholecalciferol (vitamin D3) 1,250 mcg (50,000 unit) capsule 50,000 unit PO WEEKLY (just do not take morning of surgery) ASK your surgeon for instructions diclofenac sodium 75 mg tablet,delayed release 75 mg PO BID STOP taking 24 hours before surgery clotrimazole-betamethasone 1 %-0.05 % topical cream 1 applic TOPICAL BID DO NOT take the morning of surgery furosemide 80 mg tablet 80 mg PO QAM loratadine 10 mg tablet 10 mg PO QAM insulin aspart U-100 100 unit/mL subcutaneous solution See Rx Instructions spironolactone 25 mg tablet 25 mg PO DAILY lisinopril 40 mg PO QAM Take morning of surgery With a small sip of water, OTHERWISE NOTHING TO EAT OR DRINK AFTER MIDNIGHT: aspirin 81 mg PO QAM fluticasone propionate 1 spray INTRANASAL DAILY PRN (if needed) metoprolol tartrate 50 mg PO QAM pantoprazole 40 mg PO QAM isosorbide mononitrate 30 mg tablet,extended release 24 hr 30 mg PO QAM albuterol sulfate 90 mcg/actuation aerosol inhaler 2 puff INHALATION Q4H PRN (use if needed; please bring with you to hospital day of surgery if possible) levothyroxine 100 mcg tablet 100 mcg PO QAM oxycodone-acetaminophen 5 mg-325 mg tablet 1 tab PO Q8H PRN (okay to take up to 4 hours prior to surgery if needed) pregabalin 200 mg capsule 200 mg PO TID Take evening before surgery Levemir U-100 Insulin 30 unit SUBCUT BID metoprolol tartrate 25 mg PO QPM montelukast 10 mg PO HS albuterol sulfate 90 mcg/actuation aerosol inhaler 2 puff INHALATION Q4H PRN (if needed) insulin aspart U-100 100 unit/mL subcutaneous solution See Rx Instructions oxycodone-acetaminophen 5 mg-325 mg tablet 1 tab PO Q8H PRN (if needed) pregabalin 200 mg capsule 200 mg PO TID rosuvastatin 20 mg tablet 20 mg PO HS docusate sodium [Stool Softener] 100 mg PO HS Insulin Dependent Diabetic Patients * Test your blood sugar the morning of surgery * If Blood Sugar is GREATER THAN 150, take HALF of your regular dose of: Levemir U-100 Insulin (15 units) * If Blood Sugar is LESS THAN 150, DO NOT TAKE ANY: Levemir U-100 Insulin Other Notes If you have any questions please call us at [phone] or [phone] or [phone] or [phone]
--- NOTE | 2021-02-02 13:03 | Anesthesiology Consultation ---
Date of Service February 02, 2021 Assessment & Plan (1) Encounter for pre-operative examination: - COVID screening: Per assessment on 02/02: Travel screen negative, no known COVID-19 positive contacts or current COVID-19 related symptoms. Patient fully vaccinated. Surgeon arranging preop COVID testing. Awaiting results. - Check BSG AM DOS - Patient goes by "[facility]" Chart Review Chart Review: Acceptable Risk for Surgery (pending surgeon-ordered PCP and cardiology clearances) and Patient seen in Pre Admission Testing Teaching & Discussion Pre-Anesthesia Teaching/Discussion Notes: Instructed NPO after midnight before surgery,except medications with 15 cc of water. Medication instructions pr ovided according to the PAT guidelines. History Surgery Operation Date: 03/07/21 07:15 Proposed Procedures p Right Total Knee Arthroplasty - Kamran Haywood DO Height/Weight Height: 4 ft 11 in Weight: 99.1 kg Allergies Allergy/AdvReac Type Severity Reaction Status Date / Time carvedilol AdvReac Mild Heart Verified 02/01/21 16:34 racing Medications Home Medications Medication Instructions Recorded Confirmed Last Taken Bydureon 2 mg SUBCUT WK 12/01/19 01/25/21 Unknown Levemir U-100 Insulin 30 unit SUBCUT BID 12/01/19 01/25/21 11/30/19 aspirin 81 mg PO QAM 12/01/19 01/25/21 06/03/20 fluticasone propionate 1 spray INTRANASAL DAILY PRN 12/01/19 01/25/21 Unknown metoprolol tartrate 25 mg PO QPM 12/01/19 01/25/21 11/30/19 metoprolol tartrate 50 mg PO QAM 12/01/19 01/25/21 06/03/20 montelukast 10 mg PO HS 12/01/19 01/25/21 11/30/19 pantoprazole 40 mg PO QAM 12/01/19 01/25/21 Unknown furosemide 80 mg tablet 80 mg PO QAM tab 09/13/20 01/25/21 Unknown blood-glucose meter #1 ea 11/02/20 01/24/21 Unknown lancets #100 ea 11/02/20 01/24/21 Unknown isosorbide mononitrate 30 mg 30 mg PO QAM #90 tab 11/17/20 01/25/21 Unknown tablet,extended release 24 hr albuterol sulfate 90 mcg/actuation 2 puff INHALATION Q4H PRN #6.7 g 12/02/20 01/25/21 Unknown aerosol inhaler diclofenac sodium 75 mg 75 mg PO BID #60 tab 12/09/20 01/25/21 Unknown tablet,delayed release loratadine 10 mg tablet 10 mg PO QAM #90 tab 01/04/21 01/25/21 Unknown blood sugar diagnostic #100 ea 01/05/21 01/24/21 Unknown insulin aspart U-100 100 unit/mL See Rx Instructions .ROUTE 01/06/21 01/25/21 Unknown subcutaneous solution .COMPLEX #10 ml spironolactone 25 mg tablet 25 mg PO DAILY #90 tab 01/16/21 01/25/21 Unknown cholecalciferol (vitamin D3) 1,250 50,000 unit PO WEEKLY 42 Days #6 01/17/21 01/25/21 Unknown mcg (50,000 unit) capsule cap clotrimazole-betamethasone 1 1 applic TOPICAL BID 14 Days #45 g 01/17/21 01/25/21 Unknown %-0.05 % topical cream levothyroxine 100 mcg tablet 100 mcg PO QAM #90 tab 01/18/21 01/25/21 Unknown oxycodone-acetaminophen 5 mg-325 1 tab PO Q8H PRN #90 tab 01/18/21 01/25/21 Unknown mg tablet pregabalin 200 mg capsule 200 mg PO TID #90 cap 01/18/21 01/25/21 Unknown rosuvastatin 20 mg tablet 20 mg PO HS #90 tab 01/18/21 01/25/21 Unknown docusate sodium [Stool Softener] 100 mg PO HS 01/25/21 01/25/21 Unknown lisinopril 40 mg PO QAM 01/25/21 01/25/21 Unknown Past Medical History Medical History Aspiration pneumonitis CAD (coronary artery disease) Mild, non obstructive disease per 2013 cardiac cath Cervical post-laminectomy syndrome Chronic diastolic CHF (congestive heart failure) Chronic pain CKD (chronic kidney disease) stage 3, GFR 30-59 ml/min Under surveillance by PCP COPD (chronic obstructive pulmonary disease) stable CTS (carpal tunnel syndrome) Degenerative joint disease (DJD) of hip Depression DM type 2 (diabetes mellitus, type 2) IDDM GERD (gastroesophageal reflux disease) Diet related HLD (hyperlipidemia) HTN (hypertension) Hypothyroidism Lumbar disc herniation with radiculopathy Lumbar post-laminectomy syndrome Myocardial Infarction Told "silent heart attack" years ago Obesity MONROE (obstructive sleep apnea) Cannot tolerate device PUD (peptic ulcer disease) Rheumatoid arthritis Temporomandibular joint disorder + clicking, no locking Exercise / Class Metabolic Activity III < 4 Walking/Shop/Light housework Past Family History Family History Grandmother (Maternal) Family history of diabetes mellitus Grandfather (Maternal) Family history of diabetes mellitus Mother Family history of diabetes mellitus Son Family history of diabetes mellitus Other Heart disease Stroke Denies family history of Ovarian cancer Prostate cancer Myocardial infarction Breast cancer Colorectal cancer Past Surgical History Surgical History H/O cataract extraction H/O excision of lamina of cervical vertebra for decompression of spinal cord L3-L4 decompression/fusion (06/09/20): Grade view 1, MAC#3, ETT 7 at [facility] History of back surgery History of breast biopsy History of cardiac cath 2012 - mild, non obstructive disease History of colonoscopy with polypectomy History of esophagogastroduodenoscopy (EGD) History of foot surgery History of hysterectomy History of tonsillectomy and adenoidectomy Past Anesthesia History No Hx of Anesthesia Complications (except emotional with anesthesia emergence) and No Family Hx of Anesthesia Complications History of PONV No Hx of PONV and No Hx of Motion Sickness Social History Smoking Status: Never smoker Do You Dip or Chew Tobacco: No Hx Alcohol Use: Yes Alcohol type: wine alcohol intake frequency: holidays/special occasions only Hx Substance Use: No substance use type: prescription drug Substance Use Type Other:: oxycodone-acetaminophen Last Used Substance Other:: 12:00 today Review of Systems Chronic left sided under breast pain. Patient denies shortness of breath, fever, chills, cough, wheezing, palpitations. Physical Exam Vital Signs VITALS BP 138/82 P 77 TEMP 97.7 SP02 93%RA RESP 18 PHYSICAL Significantly decreased cervical extension s/p cervical fusion Full TMJ range of motion. TMD 4 finger breaths Mallampati Score 3 Dentition: upper/lower dentures Lungs: clear throughout to auscultation Cardiac: regular rate and rhythm, distant heart sounds Spine: normal Carotid arteries: negative bruit Extremities: no edema Short, thick neck Testing Laboratory Results PT 10.2 Seconds (9.0-12.0) 02/02/21 13:21 INR 1.0 (0.9-1.1) 02/02/21 13:21 APTT 24.1 Seconds (21.0-31.0) 02/02/21 13:21 Urine Color Yellow 02/02/21 13:21 Urine Appearance Clear (Clear) 02/02/21 13:21 Urine pH 5.0 (4.5-7.5) 02/02/21 13:21 Ur Specific [place] 1.023 (1.000-1.030) 02/02/21 13:21 Urine Protein Trace (Negative) H 02/02/21 13:21 Urine Glucose (UA) Negative (Negative) 02/02/21 13:21 Urine Ketones Trace (Negative) H 02/02/21 13:21 Urine Nitrite Positive (Negative) A 02/02/21 13:21 Ur Leukocyte Esterase 1+ (Negative) H 02/02/21 13:21 Urine WBC (Auto) 10-30 /hpf (0-5) H 02/02/21 13:21 Urine RBC (Auto) 5-10 /hpf (0-4) H 02/02/21 13:21 U Hyaline Cast (Auto) 1-5 /lpf (0-5) 02/02/21 13:21 U Epithel Cells (Auto) >30 /lpf (0-5) H 02/02/21 13:21 Urine Bacteria (Auto) 4+ (Negative) H 02/02/21 13:21 Blood Type O Positive 02/02/21 13:21 Antibody Screen NEGATIVE 02/02/21 13:21 Surgeon's office made aware of abnormal UA* 01/12/21 WBC 9.90 H/H 12.3/37.5 PLATELETS 288 SODIUM 142 POTASSIUM 4.1 CHLORIDE 108 CO2 30 BUN 32 CREATININE 1.37 GLUCOSE 71 HGBA1C 7.7% Electrocardiogram Date: 06/08/20 Sinus rhythm with first-degree AV block with PSV sees at 64 bpm. Left anterior fascicular block. Minimal voltage criteria for LVH, may be normal variant. Chest X-Ray Date: 02/02/21 FINDINGS: PA and lateral chest radiographs are compared to study dated 06/09/2020 and correlated with chest CT dated 12/01/2019. The heart is enlarged noting atherosclerotic calcification of the thoracic aorta. The pulmonary vasculature is noncongested. Chronic interstitial thickening is similar to previous. Scarring/atelectasis is noted at the lung bases. No airspace consolidation or pleural effusion is identified. There is no pneumothorax. The skeletal structures are osteopenic. There are healed bilateral rib fractures. Advanced arthritic change is seen in the shoulders. Fusion hardware is noted in the lower cervical and upper lumbar spine. IMPRESSION: Cardiomegaly with no active disease in the chest. Echocardiogram Date: 06/08/20 LVEF 55 to 60%. No regional wall motion abnormality. Mild aortic valve sclerosis. Grade 1 diastolic dysfunction. Mild concentric LVH.
[2021-02-02 13:55] LABS: Partial Thromboplastin Ratio 0.9; Partial Thromboplastin Time 24.1 Seconds (21.0-31.0); Prothrombin Time 10.2 Seconds (9.0-12.0)
[2021-02-02 14:02] LABS: Appearance Urine Clear (Clear); Bacteria Urine Automated 4+ (Negative); Bilirubin Urine Negative (Negative); Blood Urine Negative (Negative); Color Urine Yellow; Epithelial Cell Urine Auto >30 /lpf (0-5); Glucose Urine UA Negative (Negative); Ketones Urine Trace (Negative); Leukocyte Esterase Urine 1+ (Negative); Nitrite Urine Positive (Negative); Protein Urine Trace (Negative); Specific Gravity Urine 1.023 (1.000-1.030); Urobilinogen Urine Negative (Negative)
--- NOTE | 2021-02-02 14:07 | XRay Report ---
TWO VIEW CHEST CLINICAL HISTORY: Preoperative examination. Cardiomegaly. FINDINGS: PA and lateral chest radiographs are compared to study dated 06/09/2020 and correlated with chest CT dated 12/01/2019. The heart is enlarged noting atherosclerotic calcification of the thoracic a elieser. The pulmonary vasculature is noncongested. Chronic interstitial thickening is similar to previo us. Scarring/atelectasis is noted at the lung bases. No airspace consolidation or pleural effusion is identified. There is no pneumothorax. The skeletal structures are osteopenic. There are healed bilat eral rib fractures. Advanced arthritic change is seen in the shoulders. Fusion hardware is noted in t he lower cervical and upper lumbar spine. IMPRESSION: Cardiomegaly with no active disease in the chest. ACT 112: Negative or not required by law. Electronically signed by: Mello Glasgow M.D. 02/02/2021 2:05 PM
--- NOTE | 2021-02-20 08:03 | History & Physical Report ---
Date of Service February 20, 2021 date of surgery: 03/07/21 Procedure: Right Total Knee Arthroplasty Assessment & Plan (1) Arthritis of knee, right: she did not have much relief after the cortisone injections, her right knee is her worst knee. uses cane to assist with ambulation. she would like to proceed with right total knee arthroplasty at [facility]. will obtain medical clearance prior to surgery. will place on ASA 81mg po bid x 1 month post-op, will make arrangements for home health PT. The risks and benefits have been discussed including, but not limited to, risk of infection, nerve injury, stiffness, loss of motion, failure to improve, etc. Reasonable outcomes and options of treatment were discussed. An explanation of appropriate alternatives to the procedure that may be advantageous were discussed and their risks and benefits, as well as the risks and benefits of not proceeding with treatment. I offered to answer any additional inquiries concerning the treatment involved. All the patient's questions were answered. The patient is agreeable, understanding of the treatment plan and alternatives, and wishes to proceed with the treatment plan. History of Present Illness Chief Complaint: Right knee pain Primary Care Provider: AYAKA Aranda Angi is a pleasant 75 year old female who complains of Right knee pain, presents for pre-op evaluation prior to a Right total knee replacement by Dr Haywood at [facility]. she has complaints of pain, decreased range of motion and stiffness in her right knee. she states that she has had pain in this knee for many years now, and is now affecting her daily activities. The pain is described as aching, sharp and throbbing. her symptoms are aggravated by ascending stairs, daily activities, first steps while awake walking. Prior NSAIDs include Diclofenac, IBU and Aleve. Prior pain medications include Percocet prn. she has been treated with previous cortisone injections in the past without much relief. she does ambulate with the assistance of a cane. Allergies Allergy/AdvReac Type Severity Reaction Status Date / Time carvedilol AdvReac Mild Heart Verified 02/10/21 11:20 racing Home Medications Medication Instructions Recorded Confirmed Type Bydureon 2 mg SUBCUT WK 12/01/19 02/10/21 History aspirin 81 mg PO QAM 12/01/19 02/10/21 History fluticasone propionate 1 spray INTRANASAL DAILY PRN 12/01/19 02/10/21 History metoprolol tartrate 25 mg PO QPM 12/01/19 02/10/21 History metoprolol tartrate 50 mg PO QAM 12/01/19 02/10/21 History montelukast 10 mg PO HS 12/01/19 02/10/21 History pantoprazole 40 mg PO QAM 12/01/19 02/10/21 History furosemide 80 mg tablet 80 mg PO QAM tab 09/13/20 02/10/21 History lancets #100 ea 11/02/20 02/10/21 Rx isosorbide mononitrate 30 mg 30 mg PO QAM #90 tab 11/17/20 02/10/21 Rx tablet,extended release 24 hr diclofenac sodium 75 mg 75 mg PO BID #60 tab 12/09/20 02/10/21 Rx tablet,delayed release loratadine 10 mg tablet 10 mg PO QAM #90 tab 01/04/21 02/10/21 Rx spironolactone 25 mg tablet 25 mg PO DAILY #90 tab 01/16/21 02/10/21 Rx cholecalciferol (vitamin D3) 1,250 50,000 unit PO WEEKLY 42 Days #6 01/17/21 02/10/21 Rx mcg (50,000 unit) capsule cap clotrimazole-betamethasone 1 1 applic TOPICAL BID 14 Days #45 g 01/17/21 02/10/21 Rx %-0.05 % topical cream levothyroxine 100 mcg tablet 100 mcg PO QAM #90 tab 01/18/21 02/10/21 Rx pregabalin 200 mg capsule 200 mg PO TID #90 cap 01/18/21 02/10/21 Rx rosuvastatin 20 mg tablet 20 mg PO HS #90 tab 01/18/21 02/10/21 Rx docusate sodium [Stool Softener] 100 mg PO HS 01/25/21 02/10/21 History lisinopril 40 mg PO QAM 01/25/21 02/10/21 History insulin aspart U-100 100 unit/mL See Rx Instructions .ROUTE 02/03/21 02/10/21 Rx subcutaneous solution .COMPLEX #10 ml insulin detemir U-100 100 unit/mL 30 unit SUBCUT BID #10 ml 04/09/21 04/16/21 Rx subcutaneous solution nitrofurantoin 100 mg PO BID 7 Days #14 cap 02/03/21 02/10/21 Rx monohydrate/macrocrystals 100 mg capsule albuterol sulfate 90 mcg/actuation 2 puff INHALATION Q4H PRN #18 g 02/06/21 02/10/21 Rx aerosol inhaler blood sugar diagnostic #100 ea 02/08/21 02/10/21 Rx oxycodone-acetaminophen 5 mg-325 1 tab PO Q6H PRN #90 tab 02/16/21 Rx mg tablet Past Med/Surg History Medical History Arthritis of knee, right Aspiration pneumonitis CAD (coronary artery disease) Mild, non obstructive disease per 2013 cardiac cath Cervical post-laminectomy syndrome Chronic diastolic CHF (congestive heart failure) Chronic pain CKD (chronic kidney disease) stage 3, GFR 30-59 ml/min Under surveillance by PCP COPD (chronic obstructive pulmonary disease) stable CTS (carpal tunnel syndrome) Degenerative joint disease (DJD) of hip Depression DM type 2 (diabetes mellitus, type 2) IDDM GERD (gastroesophageal reflux disease) Diet related HLD (hyperlipidemia) HTN (hypertension) Hypothyroidism Lumbar disc herniation with radiculopathy Lumbar post-laminectomy syndrome Myocardial Infarction Told "silent heart attack" years ago Obesity MONROE (obstructive sleep apnea) Cannot tolerate device PUD (peptic ulcer disease) Rheumatoid arthritis Temporomandibular joint disorder + clicking, no locking Surgical History H/O cataract extraction H/O excision of lamina of cervical vertebra for decompression of spinal cord L3-L4 decompression/fusion (06/09/20): Grade view 1, MAC#3, ETT 7 at [facility] History of back surgery History of breast biopsy History of cardiac cath 2012 - mild, non obstructive disease History of foot surgery History of hysterectomy History of tonsillectomy and adenoidectomy Family History Grandmother (Maternal) Family history of diabetes mellitus Grandfather (Maternal) Family history of diabetes mellitus Mother Family history of diabetes mellitus Son Family history of diabetes mellitus Other Heart disease Stroke Denies family history of Ovarian cancer Prostate cancer Myocardial infarction Breast cancer Colorectal cancer Social History Smoking Status: Never smoker Second Hand Exposure: Yes (SPOUSE USED TO SMOKE); Hx Alcohol Use: Yes Alcohol type: wine Hx Substance Use: No Preferred Language: Erit[place] Communication Ability: Effective Hearing Ability: Use of Hearing Aid Entry Operator Required: No Beliefs That Will Affect Care: None marital status: Current Living Situation: Alone Current Living Situation Comment: Lives at an Apartment Complex current occupational status: retired How many Children do You have: 3 Feels Safe at Home: Yes Childhood Exposure to Second-Hand Smoke: Yes caffeine: No during the past year weight has: increased > 10 lbs Dental Care, Regularly: No Physical Activity Frequency: Other Seatbelt Use: always Sunscreen Use: Yes Assistive Devices: Cane, Denture - Upper, Denture - Lower, Glasses and Hearing Aid - Bilateral Review of Systems Review of Systems: All systems reviewed & are unremarkable except as noted in HPI & below Constitutional: no fever, no chills and no sweats Respiratory: no cough and no dyspnea Cardiovascular: no chest pain, no dyspnea and no orthopnea Gastrointestinal: no abdominal pain, no nausea and no vomiting Musculoskeletal: as per Subjective / HPI Physical Exam Physical Exam: HT: 4ft 11in WT: 99.1kg BP: 128/76 Constitutional: WD/WN, vitals as above no acute distress Respiratory: normal respiratory effort, lungs clear to auscultation no respiratory distress, no labored breathing and does not use accessory muscles Cardiovascular: RRR, no murmur, no edema Gastrointestinal (Abdomen): normal bowel sounds, soft, nontender, no hepatosplenomegaly Musculoskeletal: Knee: + knee abnormal to inspection (Right Knee- ), + effusion (+1 effusion), + limited ROM of knee (ROM 0/3/110), + knee ROM with crepitation, + joint line tenderness (medial joint line) and + Juve's sign positive; no deformity, no skin erythema, no ecchymosis, no valgus laxity, no varus laxity, anterior drawer test negative, Guerrero's sign negative and pivot shift test negative Results & Data Results & Data ([facility]) Laboratory Results Laboratory Results PT 10.2 Seconds (9.0-12.0) 02/02/21 13:21 INR 1.0 (0.9-1.1) 02/02/21 13:21 APTT 24.1 Seconds (21.0-31.0) 02/02/21 13:21 PTT Ratio 0.9 02/02/21 13:21 Urine Color Yellow 02/02/21 13:21 Urine Appearance Clear (Clear) 02/02/21 13:21 Urine pH 5.0 (4.5-7.5) 02/02/21 13:21 Ur Specific [place] 1.023 (1.000-1.030) 02/02/21 13:21 Urine Protein Trace (Negative) H 02/02/21 13:21 Urine Glucose (UA) Negative (Negative) 02/02/21 13:21 Urine Ketones Trace (Negative) H 02/02/21 13:21 Urine Blood Negative (Negative) 02/02/21 13:21 Urine Nitrite Positive (Negative) A 02/02/21 13:21 Urine Bilirubin Negative (Negative) 02/02/21 13:21 Urine Urobilinogen Negative (Negative) 02/02/21 13:21 Ur Leukocyte Esterase 1+ (Negative) H 02/02/21 13:21 Urine WBC (Auto) 10-30 /hpf (0-5) H 02/02/21 13:21 Urine RBC (Auto) 5-10 /hpf (0-4) H 02/02/21 13:21 U Hyaline Cast (Auto) 1-5 /lpf (0-5) 02/02/21 13:21 U Epithel Cells (Auto) >30 /lpf (0-5) H 02/02/21 13:21 Urine Bacteria (Auto) 4+ (Negative) H 02/02/21 13:21 Blood Type O Positive 02/02/21 13:21 Antibody Screen NEGATIVE 02/02/21 13:21 Impressions Chest X-Ray 02/02/21 08:23 TWO VIEW CHEST CLINICAL HISTORY: Preoperative examination. Cardiomegaly. FINDINGS: PA and lateral chest radiographs are compared to study dated 06/09/2020 and correlated with chest CT dated 12/01/2019. The heart is enlarged noting atherosclerotic calcification of the thoracic aorta. The pulmonary vasculature is noncongested. Chronic interstitial thickening is similar to previous. Scarring/atelectasis is noted at the lung bases. No airspace consolidation or pleural effusion is identified. There is no pneumothorax. The skeletal structures are osteopenic. There are healed bilateral rib fractures. Advanced arthritic change is seen in the shoulders. Fusion hardware is noted in the lower cervical and upper lumbar spine. IMPRESSION: Cardiomegaly with no active disease in the chest. ACT 112: Negative or not required by law. Electronically signed by: Mello Glasgow M.D. 02/02/2021 2:05 PM Diagnostic Findings Right Knee X-ray: Right knee series showing advanced degenerative changes to the right knee, narrowing of the medial compartment and patello-femoral joint with patellar spurring noted, findings showing joint space narrowing of the medial compartment and patello-femoral joint, osteophyte formation and subchondral sclerosis noted. overall varus alignment. no acute bony pathology noted.
[~2021-03-07 08:03] MED LIST: ACETAMINOPHEN 500 MG TAB PO SCH; CeleBREX 200 MG CAP PO SCH; FAMOTIDINE 20 MG TAB PO SCH; GABAPENTIN 300 MG CAP PO SCH; LR 15ML/HR IV SCH; METOCLOPRAMIDE HCL 10 MG TABLET PO SCH; ROPIVACAINE 0.5% HCL/PF 150 MG, BUPIVACAINE 0.75% MPF 20 ML, EPINEPHrine 30MG/30ML (OR ... INSTIL SCH; Scopolamine 1 MG TDSY TD SCH; TRANEXAMIC ACID 1,000 MG **IV Intra-op IV SCH; TRANEXAMIC ACID 1,000 MG **IV Pre-op IV SCH; ceFAZolin 2000MG 2,000 MG/15 ML SYR IV SCH; dexAMETHasone 4 MG TAB PO SCH
[2021-03-07] MEDS ORDERED: ROPIVACAINE 0.5% 5 MG/ML 30 ML VIAL ONE (08:09)
[2021-03-07] MEDS ORDERED: EPINEPHrine INJ 1 MG/ML AMP ONE (08:09)
[2021-03-07] MEDS ORDERED: BUPIVACAINE 0.5 % 5 MG/1 ML PF 10ML VIAL ONE (08:10)
--- NOTE | 2021-03-07 10:49 | History & Physical Bridge Note ---
Date of Service March 07, 2021 History & Physical Bridge Note I have examined the patient, reviewed the History & Physical and in the interval since the performance of the History & Physical I have noted the following changes of clinical significance: no changes noted
[2021-03-07] MEDS ORDERED: MIDAZOLAM HCL 1 MG/ML 2ML VIAL ONE (11:05)
[2021-03-07] MEDS ORDERED: PROPOFOL IV EMULSION 10 MG/ML 20 ML VIAL IV ONE (11:05)
[2021-03-07] MEDS ORDERED: fentaNYL citrate 100 MCG/2 ML VIAL ONE (11:05)
[2021-03-07] MEDS ORDERED: LIDOCAINE HCL 2% 2 ML VIAL/AMP(20MG/ML) INFIL ONE (11:05)
[2021-03-07] MEDS ORDERED: ORTHO JOINT ANESTHETIC ONE (11:30)
[2021-03-07] MEDS ORDERED: ATROPINE SULFATE 0.1 MG/ML 10ML SYR IV PRN (11:46)
[2021-03-07] MEDS ORDERED: ONDANSETRON INJ 2 MG/ML 2 ML VIAL IV PRN ×2 (11:46→17:04)
[2021-03-07] MEDS ORDERED: ePHEDrine sulfate 50 MG/ML AMP IV PRN (11:46)
[2021-03-07] MEDS ORDERED: HYDROmorphone INJ 1 MG/ML SYRINGE IV PRN (11:46)
--- NOTE | 2021-03-07 14:26 | Operative Report ---
Post Operative Report Pre & Post Diagnosis Operation Date: 03/07/21 10:45 Pre-Op Diagnosis: Osteoarthritis Right Knee Post-Op Diagnosis: Osteoarthritis Right Knee I identified the patient and participated in the time-out.: Yes Procedure Operation Date: 03/07/21 10:45 Actual Procedures p Right Total Knee Arthroplasty(Right) utilizing [employer] journey to an en bloc total knee arthroplasty size 4 femur to tibia 9 polyethylene 29 oval patella- Kamran Haywood DO Surgeon Kamran Haywood DO Shoulder Sawyer Lawrence GUILLAUME Estimated Blood Loss 5 Findings Consistent with Post-Op Diagnosis Patient presents with severe end-stage tricompartmental degenerative joint disease right knee no response to conservative management patient had eburnated [id number]-epye marginal osteophyte subchondral sclerosis with subchondral cystic changes moderate to large effusion Specimens Bone and cartilage Drains Medium bore Hemovac Anesthesia Type MAC Spinal Regional Complications none Disposition Accompanied Patient To Recovery: No Disposition: Recovery Room Indications Patient presents with severe end-stage DJD right knee no response to conservati ve management patient failed attempted conservative management clinic physical therapy anti-inflammatories corticosteroid injection Visco supplementation relative rest activity modification patient presents for right total knee arthroplasty Description of Procedure After proper prepping and draping of the Right lower extremity anterior midline incision was made over the region of the extensor extensor mechanism after meticulous hemostasis was obtained and maintained in subcutaneous tissues a medial parapatellar incision was made The patella was subluxed lateralward the medial lateral gutter were cleaned from any hypertrophic synovitis and scar tissue of the distal femoral block was placed and the distal femoral osteotomy cut was made subsequently the chamfers anterior and posterior osteotomy cuts were made utilizing the 4-in-1 block the tibia was subsequently subluxed anteriorward medial and ateral meniscal remnants were excised in their entirety remnants of the anterior and posterior cruciate ligaments were excised in their entirety excellent exposure of the proximal tibia was obtained the tibial osteotomy guide was placed on the proximal tibial osteotomy cut was made once again the knee was irrigated with copious amounts of sterile saline solution the patella was subsequently everted lateralward thickened scar tissue around the patella was removed the patella was subsequently cut utilizing a freehand technique and was drilled prepared for final preparation and placement of patella socially flexion-extension gaps were checked and the equal and symmetric trials were placed to the appropriate femoral and tibial trials with poly-spacer being placed for equal flexion and extension gaps and full range of motion including extension to 0 and flexion to 140 the trial components after having been taken to recovery range of motion was subsequently removed meticulous hemostasis was obtained and maintained subsequently a knee block injection of joint cocktail including ropivacaine 0.5% 150 mg. Bupivacaine 0.5% epinephrine 1-200,030 mL's toradol 30 mg dexamethasone 4 mg ketamine 10 mg clonidine 100 micrograms normal saline solution 30 mg was infiltrated into the soft tissues of the posterior knee medial lateral gutters and periosteal synovium special attention was paid to protect neurovascular structures at all times subsequently trial components having been removed the knee was irrigated with sterile saline solution. debris was removed the proximal tibia was subsequently prepared and was made ready for the placement of the tibial component tibial component was also cemented and tamped into position the femoral component was subsequently placed and cemented in the position the patellar component was subsequently cemented in position because hemostasis once again obtained and maintained wound having been thoroughly irrigated with debridement and debridement lavage was performed as well as a medial parapatellar incision closed with #1 Vicryl in interrupted fashion subcutaneous was closed with #2 Vicryl skin was closed with skin clips. PA-C was necessary for prepping and drapping as well as wound closure of deep fascia Sub cutaneous tissue and skin and was necessary for the case. A sterile compressive dressing was placed patient was taken to recovery in stable condition of report dictated by Yobany I attest to the content of the Intraoperative Record and any orders documented therein. Any exceptions are noted below. I attest to the content of the Intraoperative Record and any orders documented therein. Any exceptions are noted below.
--- NOTE | 2021-03-07 15:29 | Anesthesiology Progress Note ---
Date of Service March 07, 2021 Anesthesia Post Procedure Vital Signs Vital Signs: Temp Pulse Pulse Resp BP Pulse Ox 03/07/21 15:20 74 17 104/79 99 03/07/21 15:10 74 15 132/63 100 03/07/21 15:02 36.2 C L 74 74 21 130/70 99 03/07/21 09:00 37 C 67 20 145/64 H 95 Transfer of Care Handoff Completed per policy Notes Mental Status: alert / awake / arousable and participated in evaluation Patient Amnestic to Procedure: Yes Nausea / Vomiting: adequately controlled Pain: adequately controlled Airway Patency, RR, SpO2: stable & adequate BP & HR: stable & adequate Hydration State: stable & adequate Neuraxial Anesthesia: was administered and sensory block is resolving Anesthetic Complications: no major complications apparent and Pt Satisfied with anesthetic care
--- NOTE | 2021-03-07 15:42 | XRay Report ---
TWO VIEWS RIGHT KNEE CLINICAL HISTORY: Postoperative examination. FINDINGS: AP and crosstable lateral portable views of the right knee are obtained. A right knee arthr oplasty is in near anatomic alignment. There has been undersurface remodeling of the patella. No acut e fracture is seen. There are expected postoperative changes around the knee including skin clips, a surgical drain, soft tissue edema, and subcutaneous gas. IMPRESSION: Expected postoperative changes status post right knee arthroplasty. No acute fracture is seen. ACT 112: Negative or not required by law. Electronically signed by: Mello Glasgow M.D. 03/07/2021 3:41 PM
[2021-03-07] MEDS ORDERED: Scopolamine CHECK PATCH PLACEMENT SCH (16:00)
[2021-03-07] MEDS: fentaNYL citrate 100 MCG/2 ML VIAL IV PRN ×2 (16:05→16:14)
[2021-03-07] MEDS ORDERED: diphenhydrAMINE Capsule 25 MG CAP PO PRN (17:04)
[2021-03-07] MEDS ORDERED: MAGNESIUM HYDROXIDE SUSP 30 ML UDC PO PRN (17:04)
[2021-03-07] MEDS ORDERED: METOCLOPRAMIDE HCL INJ 5 MG/ML 2 ML VIAL IV PRN (17:04)
[2021-03-07] MEDS ORDERED: bisacodyL 10 MG SUPP PR PRN (17:04)
[2021-03-07] MEDS ORDERED: oxyCODONE HCL IR 5 MG TAB (IMMEDIATE RELEASE) PO PRN (17:04)
[2021-03-07] MEDS ORDERED: ALBUTEROL HFA 8 GM INHALER INH PRN (17:04)
[2021-03-07] MEDS ORDERED: NALOXONE HCL 0.4 MG/1 ML VIAL/CARP IV PRN (17:04)
[2021-03-07] MEDS ORDERED: PHARMACY GLYCEMIC MGMT CONSULT PRN (17:12)
[2021-03-07] MEDS ORDERED: GLUCAGON FOR INJ 1 MG VIAL IM PRN (17:30)
[2021-03-07] MEDS ORDERED: INSULIN DETEMIR FLEXPEN/FLEX TOUCH 100 UNITS/ML 3ML SC ONE (17:30)
[2021-03-07] MEDS ORDERED: CARBOHYDRATES FOR HYPOGLYCEMIA PO PRN (17:30)
[2021-03-07] MEDS ORDERED: GLUCOSE 40% GEL 15 GM TUBE PO PRN (17:30)
[2021-03-07] MEDS ORDERED: DEXTROSE 50% 50 ML SYRINGE IV PRN (17:30)
[2021-03-07] MEDS ORDERED: GLUCOSE 10 TABS/TUBE PO PRN (17:30)
[2021-03-07] MEDS: SODIUM CHLORIDE 0.9% 1000ML 1,000 ML IV SCH (18:01)
[2021-03-07] MEDS: ACETAMINOPHEN 500 MG TAB PO SCH ×2 (18:02→21:28)
[2021-03-07] MEDS: INSULIN ASPART 100 UNITS/ML 3 ML PEN SC SCH ×2 (18:03→21:29)
[2021-03-07] MEDS: PREGABALIN 100 MG CAP PO SCH (19:35)
--- NOTE | 2021-03-07 20:20 | Pharmacy Report ---
Pharmacy Glycemic Short Note 2 - Date of Service March 07, 2021 - Glycemic Short BSG Results (Last 24 hours): 03/07/21 03/07/21 03/07/21 12:16 15:07 17:07 POC Glucose 146 H 180 H 233 H OUTPATIENT ANTIDIABETIC REGIMEN: * Levemir 30 units SC BID * Novolog 21 units w/ breakfast and lunch, 27 units w/ dinner * Exenatide 2 mg SC Mondays * HbA1c: 7.7% (01/12/21) ASSESSMENT: * SB is a 75 year old female POD #0 s/p right total knee arthroplasty * Received 8 mg PO dexamethasone and intra-articular ortho-mix containing dexamethasone perioperatively * Patient received 30 units of Levemir this morning prior to admission * Postoperative BSG of 233 mg/dL * Will give increased dose of levemir this evening to account for home dose plus steroids * Aggressive Novolog parameters this evening with overnight checks PLAN FOR INPATIENT GLYCEMIC CONTROL: * Basal insulin * Levemir 40 units SQ x 1 this evening * Plan for Levemir 30 units SC BID thereafter, but reassess in AM * Bolus insulin * NovoLog per scale ACHS or Q6hrs while NPO * Goal Range: Low 110 mg/dL - High 140 mg/dL * Correction Factor: 10 mg/dL/unit * Nutritional / Prandial insulin per carb ratio of 1 unit per 4 grams CHO consumed * Overnight checks at 00,04 with same parameters PLAN FOR DISCHARGE: * tbd
[2021-03-07] MEDS ORDERED: HYDROmorphone INJ 0.5 MG/0.5 ML SYR IV STA (21:16)
[2021-03-07] MEDS: ceFAZolin 2000MG 2,000 MG/15 ML SYR IV SCH (21:24)
[2021-03-07] MEDS: METOPROLOL TARTRATE 25 MG TAB PO SCH (21:28)
[2021-03-07] MEDS: DOCUSATE SODIUM 100 MG CAP PO SCH (21:28)
[2021-03-07] MEDS: ROSUVASTATIN CALCIUM 20 MG TAB PO SCH (21:28)
[2021-03-07] MEDS: ASPIRIN 81 MG ECTAB PO SCH (21:28)
[2021-03-07] MEDS: SENNA 8.6 MG TAB PO SCH (21:28)
[2021-03-07] MEDS: MONTELUKAST SODIUM 10 MG TABLET PO SCH (21:28)
[2021-03-07] MEDS: oxyCODONE/ACETAMINOPHEN 5mg/325mg TAB PO PRN (21:56)
[2021-03-07 23:22] LABS: BUN Creatinine Ratio 24.8 (10-20); Calcium 8.3 mg/dl (8.5-10.1); Creatinine Clr Calc Pharmacy 30.7 ml/min; Est GFR (African American) 35.9; Magnesium 1.7 mg/dl (1.8-2.4); Potassium 4.6 mmol/L (3.5-5.1)
[2021-03-08] MEDS: INSULIN ASPART 100 UNITS/ML 3 ML PEN SC SCH ×6 (00:23→20:42)
[2021-03-08] MEDS: oxyCODONE/ACETAMINOPHEN 5mg/325mg TAB PO PRN ×6 (02:12→23:45)
[2021-03-08] MEDS: SODIUM CHLORIDE 0.9% 1000ML 1,000 ML IV SCH (03:58)
[2021-03-08] MEDS: ceFAZolin 2000MG 2,000 MG/15 ML SYR IV SCH (04:58)
[2021-03-08] MEDS: ACETAMINOPHEN 500 MG TAB PO SCH ×3 (05:58→22:07)
[2021-03-08] MEDS: LEVOTHYROXINE SODIUM 100 MCG TABLET PO SCH (06:03)
[2021-03-08 07:12] LABS: Hematocrit (blood only) 32.9 % (37-47); Hemoglobin 10.8 g/dL (12.0-16.0); Mean Corpuscular Hemoglobin 28.8 pg (25-34); Mean Corpuscular Hgb Conc 32.8 g/dL (32-36); Mean Corpuscular Volume 87.7 fL (80-100); Mean Platelet Volume 9.1 fL (7.4-10.4); Platelet Count 234 K/uL (130-400); RDW Standard Deviation 45.1 fL (36.4-46.3); Red Blood Count 3.75 M/uL (4.2-5.4); White Blood Count 11.88 K/uL (4.8-10.8)
--- NOTE | 2021-03-08 07:27 | Orthopedic Progress Note ---
Date of Service March 08, 2021 Assessment & Plan (1) History of total right knee replacement: POD #1 s/p Right TKA labs pending. medical consult placed, has h/o COPD, CKD, DM type 2, CAD, CHF. pt/ot dvt proph with [facility]/SCD/ASA plan for d/c home with HHPT when stable mild foot drop, likely from intra-articular injection. will continue to monitor. Admission and Anticipated Discharge Date Admission Date: March 07, 2021 Subjective POD #1 s/p Right TKA Review of Systems Constitutional: no fever, no chills and no sweats Respiratory: no cough and no dyspnea Cardiovascular: no chest pain and no dyspnea Gastrointestinal: no abdominal pain, no nausea and no vomiting Physical Exam Physical Exam: Vital Signs Temp 36.5 C 03/08/21 04:05 Pulse 70 03/08/21 07:09 Resp 18 03/08/21 04:05 BP 151/78 H 03/08/21 04:05 Pulse Ox 94 03/08/21 04:05 Intake & Output 03/07/21 03/08/21 03/08/21 18:59 06:59 18:59 Intake Total 1500 / 2845 1345 / 2845 Output Total 25 / 625 600 / 625 Balance 1475 / 2220 745 / 2220 Weight 99.507 kg 100.2 kg Intake: IV 200 / 1195 995 / 1195 Lactated Ringe r's 1,000 ml @ 15 0 / 0 mls/hr IV .Q24 H [facility] Rx#: [id number] Sodium Chlorid e 0.9% 1000ML 1, 995 / 995 000 ml @ 100 m ls/hr IV .Q10H [facility] Rx#:[id number] Tranexamic Aci d / 0.7% NaCl 1, 200 / 200 000 mg In 100 ml @ 600 mls/hr IV TODAY@0600 [facility] Rx#:[id number] IV Perioperative 1300 / 1300 Oral 350 / 350 Output: Urine 350 / 350 Estimated Blood Loss 5 / 5 Drain Output 20 / 270 250 / 270 Right Knee 20 / 270 250 / 270 Other: Weight Measureme nt Method Standing Scale Built in [facility] Constitutional: WD/WN, vitals as above no acute distress Musculoskeletal: Right Leg: NVDI, calf SNT, negative rufina sign. DP palpable, dressing clean dry and intact. weak dorsiflexion of her ankle, unable to jenni ntain full dorsiflexion. Vital Signs Temp 36.5 C 03/08/21 04:05 Pulse 70 03/08/21 07:09 Resp 18 03/08/21 04:05 BP 151/78 H 03/08/21 04:05 Pulse Ox 94 03/08/21 04:05 Intake & Output 03/07/21 03/08/21 03/08/21 18:59 06:59 18:59 Intake Total 1500 / 2845 1345 / 2845 Output Total 25 / 625 600 / 625 Balance 1475 / 2220 745 / 2220 Weight 99.507 kg 100.2 kg Intake: IV 200 / 1195 995 / 1195 Lactated Ringe r's 1,000 ml @ 15 0 / 0 mls/hr IV .Q24 H [facility] Rx#: [id number] Sodium Chlorid e 0.9% 1000ML 1, 995 / 995 000 ml @ 100 m ls/hr IV .Q10H [facility] Rx#:[id number] 60 Tranexamic Aci d / 0.7% NaCl 1, 200 / 200 000 mg In 100 ml @ 600 mls/hr IV TODAY@0600 [facility] Rx#:[id number] IV Perioperative 1300 / 1300 Oral 350 / 350 Output: Urine 350 / 350 Estimated Blood Loss 5 / 5 Drain Output 20 / 270 250 / 270 Right Knee 20 / 270 250 / 270 Other: Weight Measureme nt Method Standing Scale Built in [facility] Laboratory Results WBC 11.88 K/uL (4.8-1 0.8) H 03/08/21 06:54 RBC 3.75 M/uL (4.2-5. 4) L 03/08/21 06:54 Hgb 10.8 g/dL (12.0-1 6.0) L 03/08/21 06:54 Hct 32.9 % (37-47) L 03/08/21 06:54 MCV 87.7 fL (80-100) 03/08/21 06:54 MCH 28.8 pg (25-34) 03/08/21 06:54 MCHC 32.8 g/dL (32-36) 03/08/21 06:54 RDW Std Deviation 45.1 fL (36.4-46. 3) 03/08/21 06:54 RDW Coeff of Burak 14.0 % (11.5-14.5 ) 03/08/21 06:54 Plt Count 234 K/uL (130-400 ) 03/08/21 06:54 MPV 9.1 fL (7.4-10.4) 03/08/21 06:54 PT 10.2 Seconds (9.0 -12.0) 02/02/21 13:21 INR 1.0 (0.9-1.1) 02/02/21 13:21 APTT 24.1 Seconds (21. 0-31.0) 02/02/21 13:21 PTT Ratio 0.9 02/02/21 13:21 Sodium 141 mmol/L (136-1 45) 03/07/21 22:48 Potassium 4.6 mmol/L (3.5-5 .1) 03/07/21 22:48 Chloride 109 mmol/L (98-10 7) H 03/07/21 22:48 Carbon Dioxide 27 mmol/L (21-32) 03/07/21 22:48 Anion Gap 5.0 (3-11) 03/07/21 22:48 BUN 39 mg/dl (7-18) H 03/07/21 22:48 Creatinine 1.59 mg/dl (0.6-1 .2) H 03/07/21 22:48 Est Cr Clr Drug Do sing 30.7 ml/min 03/07/21 22:48 Est GFR ( A akua) 35.9 03/07/21 22:48 Est GFR (Non-Af Am er) 31.0 03/07/21 22:48 BUN/Creatinine Rat io 24.8 (10-20) H 03/07/21 22:48 Glucose 156 mg/dl (70-99) H 03/07/21 22:48 POC Glucose 173 mg/dl (70-99) H 03/08/21 04:20 Calcium 8.3 mg/dl (8.5-10 .1) L 03/07/21 22:48 Magnesium 1.7 mg/dl (1.8-2. 4) L 03/07/21 22:48 Troponin I < 0.015 ng/ml (0- 0.045) 03/07/21 16:08 Urine Color Yellow 02/02/21 13:21 Urine Appearance Clear (Clear) 02/02/21 13:21 Urine pH 5.0 (4.5-7.5) 02/02/21 13:21 Ur Specific Gravit y 1.023 (1.000-1.0 30) 02/02/21 13:21 Urine Protein Trace (Negative) H 02/02/21 13:21 Urine Glucose (UA) Negative (Negati ve) 02/02/21 13:21 Urine Ketones Trace (Negative) H 02/02/21 13:21 Urine Blood Negative (Negati ve) 02/02/21 13:21 Urine Nitrite Positive (Negati ve) A 02/02/21 13:21 Urine Bilirubin Negative (Negati ve) 02/02/21 13:21 Urine Urobilinogen Negative (Negati ve) 02/02/21 13:21 Ur Leukocyte Wendie ase 1+ (Negative) H 02/02/21 13:21 Urine WBC (Auto) 10-30 /hpf (0-5) H 02/02/21 13:21 Urine RBC (Auto) 5-10 /hpf (0-4) H 02/02/21 13:21 U Hyaline Cast (Au to) 1-5 /lpf (0-5) 02/02/21 13:21 U Epithel Cells (A uto) >30 /lpf (0-5) H 02/02/21 13:21 Urine Bacteria (Au to) 4+ (Negative) H 02/02/21 13:21 COVID-19 Eval Orde r Covid19 [facility] [place] 03/07/21 08:55 SARS-CoV-2, RNA, N AAT NEGATIVE (NEGATI VE) 03/07/21 08:55 Blood Type O Positive 02/02/21 13:21 Antibody Screen NEGATIVE 02/02/21 13:21 Impressions Chest X-Ray 02/02/21 08:23 TWO VIEW CHEST CLINICAL HISTORY: Preoperative examination. Cardiomegaly. FINDINGS: PA and lateral chest radiographs are compared to study dated 06/09/2020 and correlated with chest CT dated 12/01/2019. The heart is enlarged noting atherosclerotic calcification of the thoracic aorta. The pulmonary vasculature is noncongested. Chronic interstitial thickening is similar to previous. Scarring/atelectasis is noted at the lung bases. No airspace consolidation or pleural effusion is identified. There is no pneumothorax. The skeletal structures are osteopenic. There are healed bilateral rib fractures. Advanced arthritic change is seen in the shoulders. Fusion hardware is noted in the lower cervical and upper lumbar spine. IMPRESSION: Cardiomegaly with no active disease in the chest. ACT 112: Negative or not required by law. Electronically signed by: Mello Glasgow M.D. 02/02/2021 2:05 PM Knee X-Ray 03/07/21 15:26 TWO VIEWS RIGHT KNEE CLINICAL HISTORY: Postoperative examination. FINDINGS: AP and crosstable lateral portable views of the right knee are obtained. A right knee arthroplasty is in near anatomic alignment. There has been undersurface remodeling of the patella. No acute fracture is seen. There are expected postoperative changes around the knee including skin clips, a surgical drain, soft tissue edema, and subcutaneous gas. IMPRESSION: Expected postoperative changes status post right knee arthroplasty. No acute fracture is seen. ACT 112: Negative or not required by law. Electronically signed by: Mello Glasgow M.D. 03/07/2021 3:41 PM Results & Data ([facility]) Vital Signs (Past 12 Hours) Vital Signs Temp Pulse Pulse Resp BP Pulse Ox 03/08/21 07:09 70 03/08/21 04:05 36.5 C 73 18 151/78 H 94 03/07/21 23:52 36.7 C 78 18 149/77 H 94 03/07/21 23:00 79 Laboratory Results Laboratory Results WBC 11.88 K/uL (4.8-10.8) H 03/08/21 06:54 RBC 3.75 M/uL (4.2-5.4) L 03/08/21 06:54 Hgb 10.8 g/dL (12.0-16.0) L 03/08/21 06:54 Hct 32.9 % (37-47) L 03/08/21 06:54 MCV 87.7 fL (80-100) 03/08/21 06:54 MCH 28.8 pg (25-34) 03/08/21 06:54 MCHC 32.8 g/dL (32-36) 03/08/21 06:54 RDW Std Deviation 45.1 fL (36.4-46.3) 03/08/21 06:54 RDW Coeff of Burak 14.0 % (11.5-14.5) 03/08/21 06:54 Plt Count 234 K/uL (130-400) 03/08/21 06:54 MPV 9.1 fL (7.4-10.4) 03/08/21 06:54 PT 10.2 Seconds (9.0-12.0) 02/02/21 13:21 INR 1.0 (0.9-1.1) 02/02/21 13:21 APTT 24.1 Seconds (21.0-31.0) 02/02/21 13:21 PTT Ratio 0.9 02/02/21 13:21 Sodium 141 mmol/L (136-145) 03/07/21 22:48 Potassium 4.6 mmol/L (3.5-5.1) 03/07/21 22:48 Chloride 109 mmol/L (98-107) H 03/07/21 22:48 Carbon Dioxide 27 mmol/L (21-32) 03/07/21 22:48 Anion Gap 5.0 (3-11) 03/07/21 22:48 BUN 39 mg/dl (7-18) H 03/07/21 22:48 Creatinine 1.59 mg/dl (0.6-1.2) H 03/07/21 22:48 Est Cr Clr Drug Dosing 30.7 ml/min 03/07/21 22:48 Est GFR ( Amer) 35.9 03/07/21 22:48 Est GFR (Non-Af Amer) 31.0 03/07/21 22:48 BUN/Creatinine Ratio 24.8 (10-20) H 03/07/21 22:48 Glucose 156 mg/dl (70-99) H 03/07/21 22:48 POC Glucose 173 mg/dl (70-99) H 03/08/21 04:20 Calcium 8.3 mg/dl (8.5-10.1) L 03/07/21 22:48 Magnesium 1.7 mg/dl (1.8-2.4) L 03/07/21 22:48 Troponin I < 0.015 ng/ml (0-0.045) 03/07/21 16:08 Urine Color Yellow 02/02/21 13:21 Urine Appearance Clear (Clear) 02/02/21 13:21 Urine pH 5.0 (4.5-7.5) 02/02/21 13:21 Ur Specific [place] 1.023 (1.000-1.030) 02/02/21 13:21 Urine Protein Trace (Negative) H 02/02/21 13:21 Urine Glucose (UA) Negative (Negative) 02/02/21 13:21 Urine Ketones Trace (Negative) H 02/02/21 13:21 Urine Blood Negative (Negative) 02/02/21 13:21 Urine Nitrite Positive (Negative) A 02/02/21 13:21 Urine Bilirubin Negative (Negative) 02/02/21 13:21 Urine Urobilinogen Negative (Negative) 02/02/21 13:21 Ur Leukocyte Esterase 1+ (Negative) H 02/02/21 13:21 Urine WBC (Auto) 10-30 /hpf (0-5) H 02/02/21 13:21 Urine RBC (Auto) 5-10 /hpf (0-4) H 02/02/21 13:21 U Hyaline Cast (Auto) 1-5 /lpf (0-5) 02/02/21 13:21 U Epithel Cells (Auto) >30 /lpf (0-5) H 02/02/21 13:21 Urine Bacteria (Auto) 4+ (Negative) H 02/02/21 13:21 COVID-19 Eval Order Covid19 [facility] 03/07/21 08:55 SARS-CoV-2, RNA, NAAT NEGATIVE (NEGATIVE) 03/07/21 08:55 Blood Type O Positive 02/02/21 13:21 Antibody Screen NEGATIVE 02/02/21 13:21 Impressions Chest X-Ray 02/02/21 08:23 TWO VIEW CHEST CLINICAL HISTORY: Preoperative examination. Cardiomegaly. FINDINGS: PA and lateral chest radiographs are compared to study dated 06/09/2020 and correlated with chest CT dated 12/01/2019. The heart is enlarged noting atherosclerotic calcification of the thoracic aorta. The pulmonary vasculature is noncongested. Chronic interstitial thickening is similar to previous. Scarring/atelectasis is noted at the lung bases. No airspace consolidation or pleural effusion is identified. There is no pneumothorax. The skeletal structures are osteopenic. There are healed bilateral rib fractures. Advanced arthritic change is seen in the shoulders. Fusion hardware is noted in the lower cervical and upper lumbar spine. IMPRESSION: Cardiomegaly with no active disease in the chest. ACT 112: Negative or not required by law. Electronically signed by: Mello Glasgow M.D. 02/02/2021 2:05 PM Knee X-Ray 03/07/21 15:26 TWO VIEWS RIGHT KNEE CLINICAL HISTORY: Postoperative examination. FINDINGS: AP and crosstable lateral portable views of the right knee are obtained. A right knee arthroplasty is in near anatomic alignment. There has been undersurface remodeling of the patella. No acute fracture is seen. There are expected postoperative changes around the knee including skin clips, a surgical drain, soft tissue edema, and subcutaneous gas. IMPRESSION: Expected postoperative changes status post right knee arthroplasty. No acute fracture is seen. ACT 112: Negative or not required by law. Electronically signed by: Mello Glasgow M.D. 03/07/2021 3:41 PM Diagnostic Findings TWO VIEWS RIGHT KNEE CLINICAL HISTORY: Postoperative examination. FINDINGS: AP and crosstable lateral portable views of the right knee are obtained. A right knee arthroplasty is in near anatomic alignment. There has been undersurface remodeling of the patella. No acute fracture is seen. There are expected postoperative changes around the knee including skin clips, a surgical drain, soft tissue edema, and subcutaneous gas.
[2021-03-08] MEDS: lisinopril 40 MG TAB PO SCH (07:40)
[2021-03-08] MEDS: DOCUSATE SODIUM 100 MG CAP PO SCH ×2 (07:40→20:46)
[2021-03-08] MEDS: ISOSORBIDE MONO EXTENDED REL 30 MG TABCR PO SCH (07:40)
[2021-03-08] MEDS: ASPIRIN 81 MG ECTAB PO SCH ×2 (07:40→20:40)
[2021-03-08] MEDS: MULTIVITAMIN TAB PO SCH (07:41)
[2021-03-08] MEDS: METOPROLOL TARTRATE 50 MG TAB PO SCH (07:41)
[2021-03-08] MEDS: LORATADINE 10 MG TAB PO SCH (07:41)
[2021-03-08] MEDS: PREGABALIN 100 MG CAP PO SCH ×3 (07:43→20:36)
[2021-03-08 07:49] LABS: BUN Creatinine Ratio 27.2 (10-20); Calcium 8.3 mg/dl (8.5-10.1); Creatinine Clr Calc Pharmacy 38.7 ml/min; Est GFR (African American) 47.1; Est GFR (Non-African American) 40.7; Potassium 4.3 mmol/L (3.5-5.1)
[2021-03-08] MEDS: INSULIN DETEMIR FLEXPEN/FLEX TOUCH 100 UNITS/ML 3ML SC SCH ×2 (08:48→20:43)
[2021-03-08] MEDS: HYDROmorphone INJ 1 MG/ML SYRINGE IV PRN ×3 (09:57→20:26)
[2021-03-08] MEDS ORDERED: COUGH DROP (SUGAR FREE) LOZ 24 LOZ/1 BOX BUCCAL ONE (11:28)
--- NOTE | 2021-03-08 14:45 | Consultation ---
Date of Consultation March 08, 2021 Assessment & Plan (1) History of total right knee replacement: pain well controlled, participating in therapy post op labs are stable, specifically Hb and Cr she is hoping to go home with home health/therapy medically she is stable for discharge as soon as orthopedics would like to discharge (2) Arthritis of knee, right: now s/p TKA (3) DM type 2 (diabetes mellitus, type 2): continue diabetic diet, Novolog SS (4) COPD (chronic obstructive pulmonary disease): breathing comfortably, no wheezing, no hypoxia (5) Chronic diastolic CHF (congestive heart failure): examines euvolemic (6) Obesity: (7) Rheumatoid arthritis: (8) CAD (coronary artery disease): denies any chest pain/pressure post op History of Present Illness Requesting Physician: Dr. Haywood Reason for Consultation: medical management Attending Physician: Kamran Haywood, History of Present Illness 75 yo female s/o right TKA yesterday with Dr. Haywood. Pain is well controlled, she participated in therapy today, plans to go home with home health and family assisting her. her vitals are stable, BP slightly high at times. She is eating well, drinking well, no chest pain/pressure, no fever. Breathing well at rest but has some dyspnea on exertion, she says she always has this. She has some shoulder pain, requesting Voltaren gel. Reviewed labs, Cr is stable at 1.2, K stable, Hb down to is 10.8 and WBC is 11.8. Allergies Allergy/AdvReac Type Severity Reaction Status Date / Time carvedilol AdvReac Mild Heart Verified 03/07/21 08:39 racing Home Medications Medication Instructions Recorded Confirmed Type aspirin 81 mg PO QAM 12/01/19 03/07/21 History fluticasone propionate 1 spray INTRANASAL DAILY PRN 12/01/19 03/07/21 History metoprolol tartrate 25 mg PO QPM 12/01/19 03/07/21 History metoprolol tartrate 50 mg PO QAM 12/01/19 03/07/21 History montelukast 10 mg PO HS 12/01/19 03/07/21 History pantoprazole 40 mg PO QAM 12/01/19 03/07/21 History furosemide 80 mg tablet 80 mg PO QAM tab 09/13/20 03/07/21 History lancets #100 ea 11/02/20 02/24/21 Rx isosorbide mononitrate 30 mg 30 mg PO QAM #90 tab 11/17/20 03/07/21 Rx tablet,extended release 24 hr diclofenac sodium 75 mg 75 mg PO BID #60 tab 12/09/20 03/07/21 Rx tablet,delayed release loratadine 10 mg tablet 10 mg PO QAM #90 tab 01/04/21 03/07/21 Rx spironolactone 25 mg tablet 25 mg PO DAILY #90 tab 01/16/21 03/07/21 Rx cholecalciferol (vitamin D3) 1,250 50,000 unit PO WEEKLY 42 Days #6 01/17/21 03/07/21 Rx mcg (50,000 unit) capsule cap clotrimazole-betamethasone 1 1 applic TOPICAL BID 14 Days #45 g 01/17/21 03/07/21 Rx %-0.05 % topical cream levothyroxine 100 mcg tablet 100 mcg PO QAM #90 tab 01/18/21 03/07/21 Rx pregabalin 200 mg capsule 200 mg PO TID #90 cap 01/18/21 03/07/21 Rx rosuvastatin 20 mg tablet 20 mg PO HS #90 tab 01/18/21 03/07/21 Rx docusate sodium [Stool Softener] 100 mg PO HS 01/25/21 03/07/21 History lisinopril 40 mg PO QAM 01/25/21 03/07/21 History insulin aspart U-100 100 unit/mL See Rx Instructions .ROUTE 02/03/21 03/07/21 Rx subcutaneous solution .COMPLEX #10 ml albuterol sulfate 90 mcg/actuation 2 puff INHALATION Q4H PRN #18 g 02/06/21 03/07/21 Rx aerosol inhaler blood sugar diagnostic #100 ea 02/08/21 02/24/21 Rx oxycodone-acetaminophen 5 mg-325 1 tab PO Q6H PRN #90 tab 02/16/21 03/07/21 Rx mg tablet exenatide microspheres 2 mg/0.85 2 mg SUBCUT Q7D #3.4 ml 02/20/21 03/07/21 Rx mL subcutaneous auto-injector insulin detemir U-100 100 unit/mL 30 unit SUBCUT BID #10 ml 03/03/21 03/07/21 Rx subcutaneous solution Patient History Medical History Arthritis of knee, right Aspiration pneumonitis CAD (coronary artery disease) Mild, non obstructive disease per 2013 cardiac cath Cervical post-laminectomy syndrome Chronic diastolic CHF (congestive heart failure) Chronic pain CKD (chronic kidney disease) stage 3, GFR 30-59 ml/min Under surveillance by PCP COPD (chronic obstructive pulmonary disease) stable CTS (carpal tunnel syndrome) Degenerative joint disease (DJD) of hip Depression DM type 2 (diabetes mellitus, type 2) IDDM GERD (gastroesophageal reflux disease) Diet related HLD (hyperlipidemia) HTN (hypertension) Hypothyroidism Lumbar disc herniation with radiculopathy Lumbar post-laminectomy syndrome Myocardial Infarction Told "silent heart attack" years ago Obesity [place] (obstructive sleep apnea) Cannot tolerate device PUD (peptic ulcer disease) Rheumatoid arthritis Temporomandibular joint disorder + clicking, no locking Surgical History H/O cataract extraction H/O excision of lamina of cervical vertebra for decompression of spinal cord L3-L4 decompression/fusion (06/09/20): Grade view 1, MAC#3, ETT 7 at [facility] History of back surgery History of breast biopsy History of cardiac cath 2012 - mild, non obstructive disease History of foot surgery History of hysterectomy History of tonsillectomy and adenoidectomy Family History Grandmother (Maternal) Family history of diabetes mellitus Grandfather (Maternal) Family history of diabetes mellitus Mother Family history of diabetes mellitus Son Family history of diabetes mellitus Other Heart disease Stroke Denies family history of Ovarian cancer Prostate cancer Myocardial infarction Breast cancer Colorectal cancer Social History Smoking Status: Never smoker Second Hand Exposure: No; Do You Dip or Chew Tobacco: No; Hx Alcohol Use: Yes Alcohol type: wine and hard liquor Hx Substance Use: No Preferred Language: British Communication Ability: Effective Visual Impairment: No Limitations Hearing Ability: Use of Hearing Aid Prosthodontist Required: No Beliefs That Will Affect Care: None marital status: Current Living Situation: Alone Current Living Situation Comment: receives home health current occupational status: retired How many Children do You have: 3 Other Information That Helps Us Care for You: No Feels Safe at Home: Yes Safety Concerns: Feels Safe At This Time Childhood Exposure to Second-Hand Smoke: Yes caffeine: No during the past year weight has: increased > 10 lbs Dental Care, Regularly: No Physical Activity Frequency: Other Seatbelt Use: always Sunscreen Use: Yes Assistive Devices: Denture - Lower and Glasses Review of Systems Review of Systems: All systems reviewed & are unremarkable except as noted in HPI & below Constitutional: no fever, no fatigue and no weakness Respiratory: + dyspnea on exertion; no cough and no dyspnea Cardiovascular: no chest pain, no palpitations, no syncope and no edema Gastrointestinal: no abdominal pain, no nausea, no vomiting, no constipation and no diarrhea/loose stools Musculoskeletal: + joint pain (right knee); no back pain Physical Exam Constitutional: well developed, + obese and comfortable; no acute distress Eyes: PERRL, conjunctivae normal, anicteric sclerae ENMT: external ear and nose normal, oropharynx normal Neck: trachea midline, no thyromegaly Respiratory: normal respiratory effort, lungs clear to auscultation Auscultation: + diminished lung sounds (bases) Cardiovascular: RRR, no murmur, no edema Gastrointestinal (Abdomen): normal bowel sounds, soft, nontender, no hepatosplenomegaly Musculoskeletal: Head/Neck/Chest: normocephalic, head atraumatic and neck supple Extremities: strength 5/5 throughout; + extremities abnormal to inspection (right knee swollen, wrapped), no cyanosis, no clubbing and no petechiae Skin: no rashes, warm and dry Neurologic: patellar DTR's 2+ bilat, sensation intact and PERRL, EOMI, accommodation nl, no face palsy, no dysarthria Psychiatric: A+Ox3, euthymic affect Lymphatic: no cervical or axillary lymphadenopathy Results & Data ([facility]) Vital Signs (Past 12 Hours) Vital Signs Temp Pulse Pulse Resp BP BP Pulse Ox 03/08/21 11:22 37.5 C 70 18 145/55 H 95 03/08/21 09:56 73 151/78 H 03/08/21 07:28 36.9 C 71 18 167/83 H 94 03/08/21 07:09 70 03/08/21 04:05 36.5 C 73 18 151/78 H 94 Laboratory Results Laboratory Results - last 24 hr 03/07/21 03/07/21 03/07/21 15:07 16:08 17:07 WBC RBC Hgb Hct MCV MCH MCHC RDW Std Deviation RDW Coeff of Burak Plt Count MPV Sodium Potassium Chloride Carbon Dioxide Anion Gap BUN Creatinine Est Cr Clr Drug Dosing Est GFR ( Amer) Est GFR (Non-Af Amer) BUN/Creatinine Ratio Glucose POC Glucose 180 H 233 H Calcium Magnesium Troponin I < 0.015 03/07/21 03/07/21 03/08/21 20:31 22:48 00:10 WBC RBC Hgb Hct MCV MCH MCHC RDW Std Deviation RDW Coeff of Burak Plt Count MPV Sodium 141 Potassium 4.6 Chloride 109 H Carbon Dioxide 27 Anion Gap 5.0 BUN 39 H Creatinine 1.59 H Est Cr Clr Drug Dosing 30.7 Est GFR ( Amer) 35.9 Est GFR (Non-Af Amer) 31.0 BUN/Creatinine Ratio 24.8 H Glucose 156 H POC Glucose 237 H 139 H Calcium 8.3 L Magnesium 1.7 L Troponin I 03/08/21 03/08/21 03/08/21 04:20 06:54 06:54 WBC 11.88 H RBC 3.75 L Hgb 10.8 L Hct 32.9 L MCV 87.7 MCH 28.8 MCHC 32.8 RDW Std Deviation 45.1 RDW Coeff of Burak 14.0 Plt Count 234 MPV 9.1 Sodium 142 Potassium 4.3 Chloride 110 H Carbon Dioxide 28 Anion Gap 4.0 BUN 35 H Creatinine 1.27 H D Est Cr Clr Drug Dosing 38.7 Est GFR ( Amer) 47.1 Est GFR (Non-Af Amer) 40.7 BUN/Creatinine Ratio 27.2 H Glucose 164 H POC Glucose 173 H Calcium 8.3 L Magnesium Troponin I 03/08/21 03/08/21 07:35 11:27 WBC RBC Hgb Hct MCV MCH MCHC RDW Std Deviation RDW Coeff of Burak Plt Count MPV Sodium Potassium Chloride Carbon Dioxide Anion Gap BUN Creatinine Est Cr Clr Drug Dosing Est GFR ( Amer) Est GFR (Non-Af Amer) BUN/Creatinine Ratio Glucose POC Glucose 165 H 216 H Calcium Magnesium Troponin I Medications Administered Current Inpatient Medications Acetaminophen (Acetaminophen 500 Mg Tab) 1,000 mg PO Q8 [facility]LEY Stop: 04/06/21 17:03 Last Admin: 03/08/21 05:58 Dose: Not Given Documented by: Albuterol (Albuterol Hfa 8 Gm Inhaler) 2 puffs INH Q4R PRN PRN Reason: Cough/SOB/Wheezing Stop: 04/06/21 17:03 Aspirin (Aspirin 81 Mg Ectab) 81 mg PO BID MILEY Stop: 04/06/21 20:59 Last Admin: 03/08/21 07:40 Dose: 81 mg Documented by: Bisacodyl (Bisacodyl 10 Mg Supp) 10 mg MN DAILY PRN PRN Reason: Constipation Stop: 04/06/21 17:03 Dextrose (Dextrose 50% 50 Ml Syringe) 25 - 50 ml IV UD PRN; Protocol PRN Reason: Hypoglycemia Protocol Stop: 04/06/21 17:29 Diclofenac Sodium (Diclofenac Sod 1% Gel 100 Gm Tube) 2 gm EXT Q12 MILEY Stop: 04/07/21 20:59 Diphenhydramine HCl (Diphenhydramine Capsule 25 Mg Cap) 25 mg PO Q8H PRN PRN Reason: Itching Stop: 04/06/21 17:03 Docusate Sodium (Docusate Sodium 100 Mg Cap) 100 mg PO BID [facility] Stop: 04/06/21 20:59 Last Admin: 03/08/21 07:40 Dose: 100 mg Documented by: Glucagon (Glucagon For Inj 1 Mg Vial) 1 mg IM UD PRN; Protocol PRN Reason: Hypoglycemia Protocol Stop: 04/06/21 17:29 Glucose (Glucose 40% Gel 15 Gm Tube) 15 - 30 gm PO UD PRN; Protocol PRN Reason: Hypoglycemia Protocol Stop: 04/06/21 17:29 Glucose (Glucose 10 Tabs/Tube) 4 - 8 tabs PO UD PRN; Protocol PRN Reason: Hypoglycemia Protocol Stop: 04/06/21 17:29 Hydromorphone HCl (Hydromorphone Inj 1 Mg/Ml Syringe) 1 mg IV Q4H PRN PRN Reason: Pain Stop: 03/21/21 17:03 Last Admin: 03/08/21 09:57 Dose: 1 mg Documented by: Insulin Aspart (Insulin Aspart 100 Units/Ml 3 Ml Pen) 0 units SC ACHS [place] Stop: 04/06/21 17:29 Last Admin: 03/08/21 11:50 Dose: 17 units Documented by: Insulin Detemir (Insulin Detemir Flexpen/Flex Touch 100 Units/Ml 3ml) 30 units SC BID [facility] Stop: 04/07/21 08:59 Last Admin: 03/08/21 08:48 Dose: 30 units Documented by: Isosorbide Mononitrate (Isosorbide [place] Extended Rel 30 Mg Tabcr) [facility] Stop: 04/07/21 08:59 Last Admin: 03/08/21 07:40 Dose: 30 mg Documented by: Levothyroxine Sodium (Levothyroxine Sodium 100 Mcg Tablet) [facility] Stop: 04/07/21 06:29 Last Admin: 03/08/21 06:03 Dose: 100 mcg Documented by: Lisinopril (Lisinopril 40 Mg Tab) 40 [facility] Stop: 04/07/21 08:59 Last Admin: 03/08/21 07:40 Dose: 40 mg Documented by: Loratadine (Loratadine 10 Mg Tab) 10 mg PO [facility] Stop: 04/07/21 08:59 Last Admin: 03/08/21 07:41 Dose: 10 mg Documented by: Magnesium Hydroxide (Magnesium Hydroxide Susp 30 Ml Udc) 30 ml PO Q6H PRN PRN Reason: Constipation Stop: 04/06/21 17:03 Metoclopramide HCl (Metoclopramide Hcl Inj 5 Mg/Ml 2 Ml Vial) 10 mg IV Q6H PRN PRN Reason: Nausea And Vomiting Stop: 04/06/21 17:03 Metoprolol Tartrate (Metoprolol Tartrate 50 Mg Tab) 50 mg [facility] Stop: 04/07/21 08:59 Last Admin: 03/08/21 07:41 Dose: 50 mg Documented by: Metoprolol Tartrate (Metoprolol Tartrate 25 Mg Tab) 25 mg PO QPM [facility] Stop: 04/06/21 20:59 Last Admin: 03/07/21 21:28 Dose: 25 mg Documented by: Miscellaneous (Scopolamine Remove Transderm Patch) 1 ea N/A ONE ONE Stop: 03/10/21 08:01 Miscellaneous (Cholecalciferol 50,000 Units: Order Awaiting Action) 1 ea N/A QS [facility] Stop: 04/10/21 00:00 Miscellaneous (Carbohydrates For Hypoglycemia ) 15 - 30 gm PO UD PRN PRN Reason: Hypoglycemia Treatment Stop: 04/06/21 17:29 Miscellaneous Information (Pharmacy Glycemic Mgmt Consult) 1 ea N/A UD PRN PRN Reason: Consult Stop: 04/06/21 17:11 Montelukast Sodium (Montelukast Sodium 10 Mg Tablet) 10 mg PO HS [facility] Stop: 04/06/21 20:59 Last Admin: 03/07/21 21:28 Dose: 10 mg Documented by: Multivitamins (Multivitamin Tab) 1 tab PO QAM [facility] Stop: 04/07/21 08:59 Last Admin: 03/08/21 07:41 Dose: 1 tab Documented by: Naloxone HCl (Naloxone Hcl 0.4 Mg/1 Ml Vial/Carp) 0.1 mg IV Q5M PRN PRN Reason: Oversedation/Resp Depression Stop: 04/06/21 17:03 Ondansetron HCl (Ondansetron Inj 2 Mg/Ml 2 Ml Vial) 4 mg IV Q6H PRN PRN Reason: Nausea And Vomiting Stop: 04/06/21 17:03 Oxycodone/Acetaminophen (Oxycodone/Acetaminophen 5mg/325mg Tab) 1 tab PO Q4H PRN PRN Reason: Pain Stop: 03/21/21 21:08 Last Admin: 03/08/21 11:48 Dose: 1 tab Documented by: Pregabalin (Pregabalin 100 Mg Cap) 200 mg PO TID [facility] Stop: 04/06/21 17:59 Last Admin: 03/08/21 14:02 Dose: 200 mg Documented by: Rosuvastatin Calcium (Rosuvastatin Calcium 20 Mg Tab) 20 mg PO [facility] Stop: 04/06/21 20:59 Last Admin: 03/07/21 21:28 Dose: 20 mg Documented by: Sennosides (Senna 8.6 Mg Tab) 17.2 mg PO [facility] Stop: 04/06/21 20:59 Last Admin: 03/07/21 21:28 Dose: 17.2 mg Documented by: Spironolactone (Spironolactone 25 Mg Tab) 25 mg PO DAILY [facility] Stop: 04/08/21 08:59 PG Care Time/CCT Total # of Minutes Spent Total Time Spent with Patient: Total time spent is greater than 50% in coordination of care (as documented) at patient's floor/unit and/or counseling patient: Coding Level of Care Code 90537 Inpt Consult Level 2 Diagnoses History of total right knee replacement Z96.651 Arthritis of knee, right M17.11 DM type 2 (diabetes mellitus, type 2) E11.9 COPD (chronic obstructive pulmonary disease) J44.9 Chronic diastolic CHF (congestive heart failure) I50.32 Obesity E66.9 Rheumatoid arthritis M06.9 CAD (coronary artery disease) I25.10
[2021-03-08] MEDS: DICLOFENAC SOD 1% GEL 100 GM TUBE EXT SCH (16:14)
[2021-03-08] MEDS: MONTELUKAST SODIUM 10 MG TABLET PO SCH (20:38)
[2021-03-08] MEDS: SENNA 8.6 MG TAB PO SCH (20:38)
[2021-03-08] MEDS: ROSUVASTATIN CALCIUM 20 MG TAB PO SCH (20:38)
[2021-03-08] MEDS: METOPROLOL TARTRATE 25 MG TAB PO SCH (20:39)
[2021-03-08] MEDS ORDERED: SODIUM CHLORIDE 0.65% NA SOLN 45 ML (OCEAN) ONE (20:57)
[2021-03-08] MEDS ORDERED: SODIUM CHLORIDE 0.65% NA SOLN 45 ML (OCEAN) STA (20:59)
[2021-03-08] MEDS ORDERED: SODIUM CHLORIDE 0.65% NA SOLN 45 ML (OCEAN) PRN (21:00)
--- NOTE | 2021-03-08 22:03 | Electrocardiogram Report ---
Test Reason : Blood Pressure : / mmHG Vent. Rate : 072 BPM Atrial Rate : 072 BPM P-R Int : 202 ms QRS Dur : 108 ms QT Int : 402 ms P-R-T Axes : 032 -47 004 degrees QTc Int : 440 ms Normal sinus rhythm Left anterior fascicular block Septal infarct , age undetermined Abnormal ECG When compared with ECG of 08-JUN-2020 12:06, Premature supraventricular complexes are no longer Present Confirmed by Conor Godinez ([id number]) on 03/08/2021 10:03:02 PM Referred By: Kamran Haywood Confirmed By:Conor Godinez
[2021-03-09] MEDS: HYDROmorphone INJ 1 MG/ML SYRINGE IV PRN ×4 (01:34→19:12)
[2021-03-09] MEDS ORDERED: HYDROmorphone INJ 0.5 MG/0.5 ML SYR IV STA (02:53)
[2021-03-09] MEDS ORDERED: HYDROmorphone INJ 0.5 MG/0.5 ML SYR ONE (03:01)
[2021-03-09] MEDS: ACETAMINOPHEN 500 MG TAB PO SCH ×3 (05:22→20:53)
[2021-03-09] MEDS: LEVOTHYROXINE SODIUM 100 MCG TABLET PO SCH (06:06)
--- NOTE | 2021-03-09 07:04 | Orthopedic Progress Note ---
Date of Service March 09, 2021 Assessment & Plan (1) History of total right knee replacement: POD #2 s/p Right TKA h/o COPD, CKD, DM type 2, CAD, CHF- appreciate medical recommendations . pt/ot dvt proph with MICA/SCD/ASA foot drop- resolved awaiting insurance approval for d/c to rehab vs SNF. stable for transfer today if approved Admission and Anticipated Discharge Date Admission Date: March 07, 2021 Subjective POD #2 s/p Right TKA Review of Systems Constitutional: no fever and no chills Respiratory: no cough and no dyspnea Cardiovascular: no chest pain, no dyspnea and no orthopnea Gastrointestinal: no nausea and no vomiting Physical Exam Physical Exam: Vital Signs Temp 36.9 C 03/09/21 03:50 Pulse 72 03/09/21 03:50 Resp 20 03/09/21 03:50 BP 151/66 H 03/09/21 03:50 Pulse Ox 94 03/09/21 03:50 Intake & Output 03/08/21 03/09/21 03/09/21 18:59 06:59 18:59 Intake Total 1000 / 1620 620 / 1620 Output Total 180 / 480 300 / 480 Balance 820 / 1140 320 / 1140 Weight 106 kg Intake: IV 1000 / 1000 Sodium Chlorid e 0.9% 1000ML 1, 1000 / 1000 000 ml @ 100 m ls/hr IV .Q10H [facility] Rx#:[id number] Oral 620 / 620 Output: Drain Output 180 / 480 300 / 480 Right Knee 180 / 480 300 / 480 Other: Weight Measureme nt Method Built in [facility] Constitutional: WD/WN, vitals as above no acute distress Musculoskeletal: Right Knee- NVDI, calf SNT, negative rufina sign. DP palpable, able to wiggle toes/ankle movement without difficulty. JV dressing clean dry and intact. expected post-operative bruising noted. Results & Data ([facility]) Vital Signs (Past 12 Hours) Vital Signs Temp Pulse Pulse Resp BP Pulse Ox 03/09/21 03:50 36.9 C 72 20 151/66 H 94 03/09/21 01:13 76 03/08/21 23:29 36.9 C 73 20 131/75 94 03/08/21 21:16 78 18 96 03/08/21 19:40 36.7 C 72 20 128/64 97 Laboratory Results Laboratory Results WBC 11.88 K/uL (4.8-10.8) H 03/08/21 06:54 RBC 3.75 M/uL (4.2-5.4) L 03/08/21 06:54 Hgb 10.8 g/dL (12.0-16.0) L 03/08/21 06:54 Hct 32.9 % (37-47) L 03/08/21 06:54 MCV 87.7 fL (80-100) 03/08/21 06:54 MCH 28.8 pg (25-34) 03/08/21 06:54 MCHC 32.8 g/dL (32-36) 03/08/21 06:54 RDW Std Deviation 45.1 fL (36.4-46.3) 03/08/21 06:54 RDW Coeff of Burak 14.0 % (11.5-14.5) 03/08/21 06:54 Plt Count 234 K/uL (130-400) 03/08/21 06:54 MPV 9.1 fL (7.4-10.4) 03/08/21 06:54 PT 10.2 Seconds (9.0-12.0) 02/02/21 13:21 INR 1.0 (0.9-1.1) 02/02/21 13:21 APTT 24.1 Seconds (21.0-31.0) 02/02/21 13:21 PTT Ratio 0.9 02/02/21 13:21 Sodium 142 mmol/L (136-145) 03/08/21 06:54 Potassium 4.3 mmol/L (3.5-5.1) 03/08/21 06:54 Chloride 110 mmol/L (98-107) H 03/08/21 06:54 Carbon Dioxide 28 mmol/L (21-32) 03/08/21 06:54 Anion Gap 4.0 (3-11) 03/08/21 06:54 BUN 35 mg/dl (7-18) H 03/08/21 06:54 Creatinine 1.27 mg/dl (0.6-1.2) H D 03/08/21 06:54 Est Cr Clr Drug Dosing 38.7 ml/min 03/08/21 06:54 Est GFR ( Amer) 47.1 03/08/21 06:54 Est GFR (Non-Af Amer) 40.7 03/08/21 06:54 BUN/Creatinine Ratio 27.2 (10-20) H 03/08/21 06:54 Glucose 164 mg/dl (70-99) H 03/08/21 06:54 POC Glucose 95 mg/dl (70-99) 03/08/21 23:20 Calcium 8.3 mg/dl (8.5-10.1) L 03/08/21 06:54 Magnesium 1.7 mg/dl (1.8-2.4) L 03/07/21 22:48 Troponin I < 0.015 ng/ml (0-0.045) 03/07/21 16:08 Urine Color Yellow 02/02/21 13:21 Urine Appearance Clear (Clear) 02/02/21 13:21 Urine pH 5.0 (4.5-7.5) 02/02/21 13:21 Ur Specific [place] 1.023 (1.000-1.030) 02/02/21 13:21 Urine Protein Trace (Negative) H 02/02/21 13:21 Urine Glucose (UA) Negative (Negative) 02/02/21 13:21 Urine Ketones Trace (Negative) H 02/02/21 13:21 Urine Blood Negative (Negative) 02/02/21 13:21 Urine Nitrite Positive (Negative) A 02/02/21 13:21 Urine Bilirubin Negative (Negative) 02/02/21 13:21 Urine Urobilinogen Negative (Negative) 02/02/21 13:21 Ur Leukocyte Esterase 1+ (Negative) H 02/02/21 13:21 Urine WBC (Auto) 10-30 /hpf (0-5) H 02/02/21 13:21 Urine RBC (Auto) 5-10 /hpf (0-4) H 02/02/21 13:21 U Hyaline Cast (Auto) 1-5 /lpf (0-5) 02/02/21 13:21 U Epithel Cells (Auto) >30 /lpf (0-5) H 02/02/21 13:21 Urine Bacteria (Auto) 4+ (Negative) H 02/02/21 13:21 COVID-19 Eval Order Covid19 [facility]Now [facility] 03/07/21 08:55 SARS-CoV-2, RNA, NAAT NEGATIVE (NEGATIVE) 03/07/21 08:55 Blood Type O Positive 02/02/21 13:21 Antibody Screen NEGATIVE 02/02/21 13:21 Impressions Chest X-Ray 02/02/21 08:23 TWO VIEW CHEST CLINICAL HISTORY: Preoperative examination. Cardiomegaly. FINDINGS: PA and lateral chest radiographs are compared to study dated 06/09/2020 and correlated with chest CT dated 12/01/2019. The heart is enlarged noting atherosclerotic calcification of the thoracic aorta. The pulmonary vasculature is noncongested. Chronic interstitial thickening is similar to previous. Scarring/atelectasis is noted at the lung bases. No airspace consolidation or pleural effusion is identified. There is no pneumothorax. The skeletal structures are osteopenic. There are healed bilateral rib fractures. Advanced arthritic change is seen in the shoulders. Fusion hardware is noted in the lower cervical and upper lumbar spine. IMPRESSION: Cardiomegaly with no active disease in the chest. ACT 112: Negative or not required by law. Electronically signed by: Mello Glasgow M.D. 02/02/2021 2:05 PM Knee X-Ray 03/07/21 15:26 TWO VIEWS RIGHT KNEE CLINICAL HISTORY: Postoperative examination. FINDINGS: AP and crosstable lateral portable views of the right knee are obtained. A right knee arthroplasty is in near anatomic alignment. There has been undersurface remodeling of the patella. No acute fracture is seen. There are expected postoperative changes around the knee including skin clips, a surgical drain, soft tissue edema, and subcutaneous gas. IMPRESSION: Expected postoperative changes status post right knee arthroplasty. No acute fracture is seen. ACT 112: Negative or not required by law. Electronically signed by: eMllo Glasgow M.D. 03/07/2021 3:41 PM
[2021-03-09] MEDS: oxyCODONE/ACETAMINOPHEN 5mg/325mg TAB PO PRN ×4 (07:06→23:21)
[2021-03-09] MEDS: INSULIN DETEMIR FLEXPEN/FLEX TOUCH 100 UNITS/ML 3ML SC SCH ×2 (09:21→20:54)
[2021-03-09] MEDS: INSULIN ASPART 100 UNITS/ML 3 ML PEN SC SCH ×4 (09:22→20:54)
[2021-03-09] MEDS: ASPIRIN 81 MG ECTAB PO SCH ×2 (10:13→20:52)
[2021-03-09] MEDS: DICLOFENAC SOD 1% GEL 100 GM TUBE EXT SCH ×2 (10:13→20:52)
--- NOTE | 2021-03-09 10:13 | Pharmacy Report ---
Pharmacy Glycemic Short Note 2 - Date of Service March 09, 2021 - Glycemic Short BSG Results (Last 24 hours): 03/08/21 03/08/21 03/08/21 11:27 17:08 20:18 POC Glucose 216 H 88 84 03/08/21 03/09/21 23:20 07:39 POC Glucose 95 81 OUTPATIENT ANTIDIABETIC REGIMEN: * Levemir 30 units SC BID * Novolog 21 units w/ breakfast and lunch, 27 units w/ dinner * Exenatide 2 mg SC Mondays * HbA1c: 7.7% (01/12/21) ASSESSMENT: 03/09 * Patient received total of 99 units of insulin yesterday, of which 60 units were basal insulin * Fasting BSG 81 mg/dL - will scale back on basal insulin for today ~30% * BSGs yesterday trending down, on lower end of range. Likely steroids wearing off / loosen CF/CR this AM 03/07 * SB is a 75 year old female POD #0 s/p right total knee arthroplasty * Received 8 mg PO dexamethasone and intra-articular ortho-mix containing dexamethasone perioperatively * Patient received 30 units of Levemir this morning prior to admission * Postoperative BSG of 233 mg/dL * Will give increased dose of levemir this evening to account for home dose plus steroids * Aggressive Novolog parameters this evening with overnight checks PLAN FOR INPATIENT GLYCEMIC CONTROL: * Basal insulin * Levemir 20 units bid * Bolus insulin * NovoLog per scale ACHS or Q6hrs while NPO * Goal Range: Low 110 mg/dL - High 140 mg/dL * Correction Factor: 15 mg/dL/unit * Nutritional / Prandial insulin per carb ratio of 1 unit per 5 grams CHO consumed PLAN FOR DISCHARGE: * 7.7% - A1c within range, goal <8% - reasonable to continue home insulin regimen as long as patient not reporting frequent hypoglycemia at home and PO intake improves
[2021-03-09] MEDS: DOCUSATE SODIUM 100 MG CAP PO SCH ×2 (10:14→20:51)
[2021-03-09] MEDS: LORATADINE 10 MG TAB PO SCH (10:15)
[2021-03-09] MEDS: FUROSEMIDE 80 MG TAB PO SCH (10:15)
[2021-03-09] MEDS: lisinopril 40 MG TAB PO SCH (10:15)
[2021-03-09] MEDS: ISOSORBIDE MONO EXTENDED REL 30 MG TABCR PO SCH (10:15)
[2021-03-09] MEDS: METOPROLOL TARTRATE 50 MG TAB PO SCH (10:15)
[2021-03-09] MEDS: PREGABALIN 100 MG CAP PO SCH ×3 (10:16→20:45)
[2021-03-09] MEDS: MULTIVITAMIN TAB PO SCH (10:16)
[2021-03-09] MEDS: SPIRONOLACTONE 25 MG TAB PO SCH (10:16)
[2021-03-09] MEDS: DICLOFENAC SODIUM 75 MG TABCR PO SCH ×2 (11:17→20:52)
[2021-03-09] MEDS ORDERED: CALCIUM CARBONATE 500 MG CHEWABLE TAB PO STA (20:20)
[2021-03-09] MEDS: ROSUVASTATIN CALCIUM 20 MG TAB PO SCH (20:50)
[2021-03-09] MEDS: METOPROLOL TARTRATE 25 MG TAB PO SCH (20:50)
[2021-03-09] MEDS: SENNA 8.6 MG TAB PO SCH (20:50)
[2021-03-09] MEDS: MONTELUKAST SODIUM 10 MG TABLET PO SCH (20:51)
[2021-03-10] MEDS: HYDROmorphone INJ 1 MG/ML SYRINGE IV PRN (01:16)
[2021-03-10] MEDS: ACETAMINOPHEN 500 MG TAB PO SCH ×3 (06:05→21:14)
[2021-03-10] MEDS: LEVOTHYROXINE SODIUM 100 MCG TABLET PO SCH (06:14)
--- NOTE | 2021-03-10 06:58 | Orthopedic Progress Note ---
Date of Service March 10, 2021 Assessment & Plan (1) History of total right knee replacement: POD #3 s/p Right TKA h/o COPD, CKD, DM type 2, CAD, CHF- appreciate medical recommendations . pt/ot dvt proph with MICA/SCD/ASA foot drop- resolved awaiting insurance approval for d/c to rehab vs SNF. stable for transfer today if approved Admission and Anticipated Discharge Date Admission Date: March 07, 2021 Subjective POD #3 s/p Right TKA Review of Systems Constitutional: no fever and no chills Cardiovascular: no chest pain, no dyspnea and no orthopnea Gastrointestinal: no abdominal pain, no nausea and no vomiting Physical Exam Physical Exam: Vital Signs Temp 36.9 C 03/09/21 22:53 Pulse 75 03/09/21 23:59 Resp 20 03/09/21 22:53 BP 162/65 H 03/09/21 22:53 Pulse Ox 92 03/09/21 22:53 Intake & Output 03/09/21 03/09/21 03/10/21 06:59 18:59 06:59 Intake Total 620 / 1620 390 / 390 Output Total 300 / 480 Balance 320 / 1140 390 / 390 Weight 106 kg 103.7 kg Intake: Oral 620 / 620 390 / 390 Output: Drain Output 300 / 480 Right Knee 300 / 480 Other: # Unmeasured Voi ds 4 Weight Measureme nt Method [facility] Constitutional: WD/WN, vitals as above no acute distress Musculoskeletal: RIGHT KNEE: NVDI, calf SNT, negative rufina sign. DP palpable, able to wiggle toes/ankle movement without difficulty. JV dressing clean dry and intact. expected post-operative bruising noted. Results & Data ([facility]) Vital Signs (Past 12 Hours) Vital Signs Temp Pulse Pulse Resp BP Pulse Ox 03/09/21 23:59 75 03/09/21 22:53 36.9 C 73 20 162/65 H 92 03/09/21 19:37 36.7 C 79 20 136/61 93 Laboratory Results Laboratory Results WBC 11.88 K/uL (4.8-10.8) H 03/08/21 06:54 RBC 3.75 M/uL (4.2-5.4) L 03/08/21 06:54 Hgb 10.8 g/dL (12.0-16.0) L 03/08/21 06:54 Hct 32.9 % (37-47) L 03/08/21 06:54 MCV 87.7 fL (80-100) 03/08/21 06:54 MCH 28.8 pg (25-34) 03/08/21 06:54 MCHC 32.8 g/dL (32-36) 03/08/21 06:54 RDW Std Deviation 45.1 fL (36.4-46.3) 03/08/21 06:54 RDW Coeff of Burak 14.0 % (11.5-14.5) 03/08/21 06:54 Plt Count 234 K/uL (130-400) 03/08/21 06:54 MPV 9.1 fL (7.4-10.4) 03/08/21 06:54 PT 10.2 Seconds (9.0-12.0) 02/02/21 13:21 INR 1.0 (0.9-1.1) 02/02/21 13:21 APTT 24.1 Seconds (21.0-31.0) 02/02/21 13:21 PTT Ratio 0.9 02/02/21 13:21 Sodium 142 mmol/L (136-145) 03/08/21 06:54 Potassium 4.3 mmol/L (3.5-5.1) 03/08/21 06:54 Chloride 110 mmol/L (98-107) H 03/08/21 06:54 Carbon Dioxide 28 mmol/L (21-32) 03/08/21 06:54 Anion Gap 4.0 (3-11) 03/08/21 06:54 BUN 35 mg/dl (7-18) H 03/08/21 06:54 Creatinine 1.27 mg/dl (0.6-1.2) H D 03/08/21 06:54 Est Cr Clr Drug Dosing 38.7 ml/min 03/08/21 06:54 Est GFR ( Amer) 47.1 03/08/21 06:54 Est GFR (Non-Af Amer) 40.7 03/08/21 06:54 BUN/Creatinine Ratio 27.2 (10-20) H 03/08/21 06:54 Glucose 164 mg/dl (70-99) H 03/08/21 06:54 POC Glucose 291 mg/dl (70-99) H 03/09/21 20:14 Calcium 8.3 mg/dl (8.5-10.1) L 03/08/21 06:54 Magnesium 1.7 mg/dl (1.8-2.4) L 03/07/21 22:48 Troponin I < 0.015 ng/ml (0-0.045) 03/07/21 16:08 Urine Color Yellow 02/02/21 13:21 Urine Appearance Clear (Clear) 02/02/21 13:21 Urine pH 5.0 (4.5-7.5) 02/02/21 13:21 Ur Specific Cecil 1.023 (1.000-1.030) 02/02/21 13:21 Urine Protein Trace (Negative) H 02/02/21 13:21 Urine Glucose (UA) Negative (Negative) 02/02/21 13:21 Urine Ketones Trace (Negative) H 02/02/21 13:21 Urine Blood Negative (Negative) 02/02/21 13:21 Urine Nitrite Positive (Negative) A 02/02/21 13:21 Urine Bilirubin Negative (Negative) 02/02/21 13:21 Urine Urobilinogen Negative (Negative) 02/02/21 13:21 Ur Leukocyte Esterase 1+ (Negative) H 02/02/21 13:21 Urine WBC (Auto) 10-30 /hpf (0-5) H 02/02/21 13:21 Urine RBC (Auto) 5-10 /hpf (0-4) H 02/02/21 13:21 U Hyaline Cast (Auto) 1-5 /lpf (0-5) 02/02/21 13:21 U Epithel Cells (Auto) >30 /lpf (0-5) H 02/02/21 13:21 Urine Bacteria (Auto) 4+ (Negative) H 02/02/21 13:21 COVID-19 Eval Order Covid19 [facility] 03/07/21 08:55 SARS-CoV-2, RNA, NAAT NEGATIVE (NEGATIVE) 03/07/21 08:55 Blood Type O Positive 02/02/21 13:21 Antibody Screen NEGATIVE 02/02/21 13:21 Impressions Chest X-Ray 02/02/21 08:23 TWO VIEW CHEST CLINICAL HISTORY: Preoperative examination. Cardiomegaly. FINDINGS: PA and lateral chest radiographs are compared to study dated 06/09/2020 and correlated with chest CT dated 12/01/2019. The heart is enlarged noting atherosclerotic calcification of the thoracic aorta. The pulmonary vasculature is noncongested. Chronic interstitial thickening is similar to previous. Scarring/atelectasis is noted at the lung bases. No airspace consolidation or pleural effusion is identified. There is no pneumothorax. The skeletal structures are osteopenic. There are healed bilateral rib fractures. Advanced arthritic change is seen in the shoulders. Fusion hardware is noted in the lower cervical and upper lumbar spine. IMPRESSION: Cardiomegaly with no active disease in the chest. ACT 112: Negative or not required by law. Electronically signed by: Mello Glasgow M.D. 02/02/2021 2:05 PM Knee X-Ray 03/07/21 15:26 TWO VIEWS RIGHT KNEE CLINICAL HISTORY: Postoperative examination. FINDINGS: AP and crosstable lateral portable views of the right knee are obtained. A right knee arthroplasty is in near anatomic alignment. There has been undersurface remodeling of the patella. No acute fracture is seen. There are expected postoperative changes around the knee including skin clips, a surgical drain, soft tissue edema, and subcutaneous gas. IMPRESSION: Expected postoperative changes status post right knee arthroplasty. No acute fracture is seen. ACT 112: Negative or not required by law. Electronically signed by: Mello Glasgow M.D. 03/07/2021 3:41 PM
[2021-03-10] MEDS: oxyCODONE/ACETAMINOPHEN 5mg/325mg TAB PO PRN ×4 (08:20→23:13)
[2021-03-10] MEDS: INSULIN ASPART 100 UNITS/ML 3 ML PEN SC SCH ×4 (08:21→21:12)
[2021-03-10] MEDS: METOPROLOL TARTRATE 50 MG TAB PO SCH (08:23)
[2021-03-10] MEDS: DICLOFENAC SODIUM 75 MG TABCR PO SCH ×2 (08:23→20:49)
[2021-03-10] MEDS: ISOSORBIDE MONO EXTENDED REL 30 MG TABCR PO SCH (08:24)
[2021-03-10] MEDS: MULTIVITAMIN TAB PO SCH (08:24)
[2021-03-10] MEDS: SPIRONOLACTONE 25 MG TAB PO SCH (08:24)
[2021-03-10] MEDS: LORATADINE 10 MG TAB PO SCH (08:24)
[2021-03-10] MEDS: DOCUSATE SODIUM 100 MG CAP PO SCH ×2 (08:24→20:45)
[2021-03-10] MEDS: ASPIRIN 81 MG ECTAB PO SCH ×2 (08:24→20:51)
[2021-03-10] MEDS: FUROSEMIDE 80 MG TAB PO SCH (08:24)
[2021-03-10] MEDS: lisinopril 40 MG TAB PO SCH (08:24)
[2021-03-10] MEDS: DICLOFENAC SOD 1% GEL 100 GM TUBE EXT SCH ×2 (08:25→20:45)
[2021-03-10] MEDS: PREGABALIN 100 MG CAP PO SCH ×3 (08:30→20:56)
[2021-03-10] MEDS ORDERED: INSULIN DETEMIR FLEXPEN/FLEX TOUCH 100 UNITS/ML 3ML SC SCH (09:00)
[2021-03-10] MEDS: MONTELUKAST SODIUM 10 MG TABLET PO SCH (20:45)
[2021-03-10] MEDS: ROSUVASTATIN CALCIUM 20 MG TAB PO SCH (20:47)
[2021-03-10] MEDS: SENNA 8.6 MG TAB PO SCH (20:50)
[2021-03-10] MEDS: METOPROLOL TARTRATE 25 MG TAB PO SCH (20:52)
[2021-03-10] MEDS: INSULIN DETEMIR FLEXPEN/FLEX TOUCH 100 UNITS/ML 3ML SC SCH (21:12)
[2021-03-11] MEDS: oxyCODONE/ACETAMINOPHEN 5mg/325mg TAB PO PRN ×2 (05:02→09:55)
[2021-03-11] MEDS: ACETAMINOPHEN 500 MG TAB PO SCH (05:03)
[2021-03-11] MEDS: LEVOTHYROXINE SODIUM 100 MCG TABLET PO SCH (05:03)
--- NOTE | 2021-03-11 08:29 | Orthopedic Progress Note ---
Date of Service March 11, 2021 Assessment & Plan (1) History of total right knee replacement: POD #4 s/p Right TKA h/o COPD, CKD, DM type 2, CAD, CHF- appreciate medical recommendations . pt/ot dvt proph with MICA/SCD/ASA Patient states she was doing well in physical therapy felt she could go home with home health. She wanted to go to [facility] for rehab but it appears insurance approval will not be done for 2 more days at the start of the week. She feels she is doing well and does not want to wait 2 more days. We will discharge her home today with home health services. Admission and Anticipated Discharge Date Admission Date: March 07, 2021 Subjective POD #4 s/p Right TKA. States she was doing well yesterday and did well therapy yesterday. She had an increase in pain last evening and last night. She is slightly improved this morning with some pain in the knee. She states that the knee has a swollen feeling. Denies chest pain, shortness of breath, lightheadedness. Physical Exam Constitutional: WD/WN, vitals as above no acute distress Sitting at the bedside, comfortable, getting ready to start eating breakfast. Musculoskeletal: Knee: + surgical incision (JV dressing in place and functioning on the left knee); knee normal to inspection, no deformity, no skin erythema, no ecchymosis, no crepitation with knee ROM, no valgus alignment and no varus alignment Skin: no rashes, warm and dry Trauma: no evidence of skin trauma Neurologic: normal touch/pain/proprioception Psychiatric: A+Ox3, euthymic affect Speech: normal rate/rhythm/volume of speech Results & Data ([facility]) Vital Signs (Past 12 Hours) Vital Signs Temp Pulse Pulse Resp BP Pulse Ox 03/11/21 07:19 72 03/11/21 07:13 36.8 C 74 20 163/72 H 93 03/11/21 04:00 36.7 C 70 20 168/68 H 94 03/10/21 22:58 36.9 C 64 20 137/80 92 03/10/21 22:20 72
[2021-03-11] MEDS: INSULIN DETEMIR FLEXPEN/FLEX TOUCH 100 UNITS/ML 3ML SC SCH (08:32)
[2021-03-11] MEDS: SPIRONOLACTONE 25 MG TAB PO SCH (08:33)
[2021-03-11] MEDS: ISOSORBIDE MONO EXTENDED REL 30 MG TABCR PO SCH (08:33)
[2021-03-11] MEDS: FUROSEMIDE 80 MG TAB PO SCH (08:33)
[2021-03-11] MEDS: lisinopril 40 MG TAB PO SCH (08:34)
[2021-03-11] MEDS: LORATADINE 10 MG TAB PO SCH (08:34)
[2021-03-11] MEDS: MULTIVITAMIN TAB PO SCH (08:34)
[2021-03-11] MEDS: METOPROLOL TARTRATE 50 MG TAB PO SCH (08:34)
[2021-03-11] MEDS: DICLOFENAC SODIUM 75 MG TABCR PO SCH (08:34)
[2021-03-11] MEDS: ASPIRIN 81 MG ECTAB PO SCH (08:35)
[2021-03-11] MEDS: DOCUSATE SODIUM 100 MG CAP PO SCH (08:35)
[2021-03-11] MEDS: INSULIN ASPART 100 UNITS/ML 3 ML PEN SC SCH ×2 (08:35→12:23)
[2021-03-11] MEDS: DICLOFENAC SOD 1% GEL 100 GM TUBE EXT SCH (08:37)
[2021-03-11] MEDS: PREGABALIN 100 MG CAP PO SCH (08:39)
--- NOTE | 2021-03-12 19:00 | Discharge Summary ---
Date of Service date of discharge: March 11, 2021 date of admission: 03-07-21 Admission HPI Per Admitting Provider Angi is a pleasant 75 year old female who complains of Right knee pain, presents for pre-op evaluation prior to a Right total knee replacement by Dr Haywood at [facility]. she has complaints of pain, decreased range of motion and stiffness in her right knee. she states that she has had pain in this knee for many years now, and is now affecting her daily activities. The pain is described as aching, sharp and throbbing. her symptoms are aggravated by ascending stairs, daily activities, first steps while awake walking. Prior NSAIDs include Diclofenac, IBU and Aleve. Prior pain medications include Percocet prn. she has been treated with previous cortisone injections in the past without much relief. she does ambulate with the assistance of a cane. Principal Diagnosis right knee arthritis Discharge Exam Vital Signs Temp 36.8 C 03/11/21 10:50 Pulse 66 03/11/21 10:50 Resp 20 03/11/21 10:50 BP 163/72 H 03/11/21 10:50 Pulse Ox 93 03/11/21 10:50 Intake & Output 03/11/21 03/12/21 03/12/21 18:59 06:59 18:59 Weight 104.4 kg Constitutional WD/WN, vitals as above Musculoskeletal Right Knee- NVDI, calf SNT, negative rufina sign. DP palpable, able to wiggle toes/ankle movement without difficulty. JV dressing clean dry and intact. expected post-operative bruising noted. Discharge Data Allergies Allergy/AdvReac Type Severity Reaction Status Date / Time carvedilol AdvReac Mild Heart Verified 03/07/21 08:39 racing Consultations 03/07/21 17:04 Consult Hospitalist Routine Procedures Performed Operation Date: 03/07/21 10:45 Actual Procedures p Right Total Knee Arthroplasty(Right) - Kamran Haywood DO Ordered Studies 03/07/21 05:00 US - OR guided needle placemen Routine Hospital Course (1) History of total right knee replacement: POD #4 s/p Right TKA h/o COPD, CKD, DM type 2, CAD, CHF- appreciate medical recommendations . pt/ot dvt proph with MICA/SCD/ASA Patient states she was doing well in physical therapy felt she could go home with home health. She wanted to go to [facility] for rehab but it appears insurance approval will not be done for 2 more days at the start of the week. She feels she is doing well and does not want to wait 2 more days. We will discharge her home today with home health services. Total Time Total Time Spent Total Time Spent (In Minutes): 20 Total Time Includes: Examination of the Patient, Discharge Planning and Medication Reconciliation Discharge Plan Discharge Items Patient Disposition: Home - Home Health Services Reason For Visit: Osteoarthritis Right Knee Discharge Diagnosis: Right total knee replacement Condition on Discharge: Good Activity: Per Instructions section Lifting: Wait until after follow-up appointment Exercise/Sports: Wait until after follow-up appointment Weightbearing Comment: WBAT with walker Non-emergency contact: Surgeon Call non-emergency contact if: you have any medication questions, your temperature is above 101, your wound has increased redness, your wound has increased drainage and your wound pain has increased Follow-up/Referrals: Oh Humphrey CRNP [Primary Care Provider] - Diet: Carb Consistent or DM2 Addtl Attending Provider Instructions: ACTIVITY RECOMMENDATIONS: SELF CARE INSTRUCTIONS AFTER TOTAL KNEE REPLACEMENT A. You may need to continue a physical therapy program after discharge from the hospital. There are several options available to you. Your doctor will assist you in selecting the best one for you. 1. An out-patient facility 2 to 3 times a week for therapy or home therapy. 2. Continue working on all exercises taught to you in the hospital. Your goals should be to increase bending of your knee to 90 degrees and beyond and to fully straighten your knee. B. You may progress at your own pace from walking with a walker or crutches to a cane; then to no assistive devices. C. Make walking a part of your daily routine. Be up as much as comfortable with rest periods throughout the day. Rest with leg elevation is very important. Use the ice wrap frequently for the first 3-4 weeks. D. There are no restrictions on activities. You may ride in a car, shop, participate in purchasing specialist and all social activities. E. Wear the long elastic stockings (MICA hose) 20 hours a day for 2 weeks after surgery. They can be removed several times a day for laundering and for a bath. F. You may shower, no tub baths until cleared by your doctor. SPECIAL CARE INSTRUCTIONS: VERY IMPORTANT TO READ AND REVIEW A. There are a few signs you need to watch for after you are home. Call [facility] if you notice any of the followin. Increased severe knee pain. Some pain is expected especially when you exercise. 2. Increased swelling in your leg or knee; pain or swelling of the calf muscle in either lower leg. 3. Any fluid drainage from the incision. 4. Shortness of breath or chest pain. B. Please call [facility] at if you have any concerns or questions about your operation or recovery. The doctor or his nurse will return your call promptly. C. You must take antibiotics before dental work, bladder, bowel or other surgery. Your doctor will provide you with a permanent care to carry describing this precaution. IMPORTANT: * REMEMBER TO TAKE ASPIRIN, 81 MG, TWICE DAILY FOR 4 WEEKS UNLESS OTHERWISE DIRECTED. THIS IS YOUR BLOOD THINNER. * HIGH RISK PATIENTS MAY BE PRESCRIBED A STRONGER BLOOD THINNER. THIS WILL BE PROVIDED AT DISCHARGE. * CALL IF INCREASED PAIN, REDNESS, DRAINAGE OR FEVER GREATER THAT 101. * WEAR MICA HOSE 20 HOURS PER DAY FOR 2 WEEKS. * JV Dressing- This is a large suction dressing covering your incision. This will help pull any excess drainage from the wound and allow your incision to heal properly. You may shower with this if you can keep the unit outside of the shower. If any bleeding or leakage is noted please call your doctor's office. This will remain on your incision for 7 days and then should be removed. This can be done yourself or by the home nursing staff if applicable. The entire unit is disposable once removed. Once removed, keep incision clean and dry. If redness or drainage is noted, please call your surgeon. IF INCISION IS LEAKING THROUGH DRESSING, CALL THE OFFICE . FOLLOW UP VISIT: If appointment is not already scheduled: Please call [facility] to make a follow-up appointment for 2 weeks after your surgery at . Pending Studies at Discharge: No Stand-Alone Forms: My [employer], Smoking Cessation Medications and DC Order Prescriptions: New aspirin 81 mg Tablet,Delayed Release (Dr/Ec) 81 mg PO BID 30 Days Qty: 60 RF: 0 oxycodone-acetaminophen [Percocet] 5-325 mg Tablet 1 - 2 tab PO Q6H PRN (Reason: pain) Qty: 30 RF: 0 docusate sodium 100 mg Capsule 100 mg PO BID 10 Days Qty: 20 RF: 0 cefadroxil 500 mg capsule 500 mg PO BID 14 Days Qty: 28 RF: 0 oxycodone-acetaminophen [Percocet] 5-325 mg Tablet 1 - 2 tab PO Q6H PRN (Reason: pain) Qty: 30 RF: 0 Continued (DME) lancets [Accu-Chek Softclix Lancets] Misc See Rx Instructions .ROUTE .MEDSUPPLY Qty: 100 RF: 0 isosorbide mononitrate 30 mg tablet extended release 24 hr 30 mg PO QAM Qty: 90 RF: 1 loratadine 10 mg tablet 10 mg PO QAM Qty: 90 RF: 1 spironolactone 25 mg tablet 25 mg PO DAILY Qty: 90 RF: 1 pregabalin 200 mg capsule 200 mg PO TID Qty: 90 RF: 5 levothyroxine 100 mcg tablet 100 mcg PO QAM Qty: 90 RF: 1 rosuvastatin 20 mg tablet 20 mg PO HS Qty: 90 RF: 1 albuterol sulfate 90 mcg/actuation HFA aerosol inhaler 2 puff inhalation Q4H PRN (Reason: Cough/SOB/Wheezing) Qty: 18 RF: 2 (DME) OneTouch Verio test strips Strip See Rx Instructions .ROUTE .MEDSUPPLY Qty: 100 RF: 5 Bydureon BCise 2 mg/0.85 mL auto-injector 2 mg subcut Q7D Qty: 3.4 RF: 2 Levemir U-100 Insulin 100 unit/mL solution 30 unit SUBCUT BID Qty: 10 RF: 1 insulin aspart U-100 [Novolog U-100 Insulin aspart] 100 unit/mL solution See Rx Instructions .ROUTE .COMPLEX Qty: 10 RF: 1 clotrimazole-betamethasone 1-0.05 % cream 1 applic topical BID 14 Days Qty: 45 RF: 3 cholecalciferol (vitamin D3) 1,250 mcg (50,000 unit) capsule 50,000 unit PO WEEKLY 42 Days Qty: 6 RF: 0 pantoprazole 40 mg tablet,delayed release (DR/EC) 40 mg PO QAM RF: 0 metoprolol tartrate 50 mg tablet 50 mg PO QAM RF: 0 metoprolol tartrate 50 mg tablet 25 mg PO QPM RF: 0 montelukast 10 mg tablet 10 mg PO HS RF: 0 fluticasone propionate 50 mcg/actuation spray,suspension 1 spray INTRANASAL DAILY PRN (Reason: Allergy Symptoms) RF: 0 furosemide 80 mg tablet 80 mg PO QAM RF: 0 lisinopril 40 mg tablet 40 mg PO QAM RF: 0 Stool Softener 50 mg Capsule 100 mg PO HS RF: 0 Discontinued diclofenac sodium 75 mg tablet,delayed release (DR/EC) 75 mg PO BID Qty: 60 RF: 2 oxycodone-acetaminophen 5-325 mg tablet 1 tab PO Q6H PRN (Reason: pain) Qty: 90 RF: 0 aspirin 81 mg Tablet,Delayed Release (Dr/Ec) 81 mg PO QAM RF: 0 Discharge Orders: Discharge Order (Routine); Ordered 03/09/21 Ordered By: Lawrence Leigh Admission Data Admit Date/Time: 03/07/21 15:26 Attending Provider: Kamran Haywood Admit Provider: Kamran Haywood Primary Care Provider: Oh Humphrey Other Providers: Brianna Gutierrez ; Jakub Wright ; Davon Mccarthy ; Kamran Conde ; Marvin Lazo ; Catrachito Andrew ; Nasima High ; Lizet Pressley ; Rich Jauregui ; Sylvia Simmons ; Stefany Preston ; Apollo Gunter ; Lion Aquino ; Dalton Cat ; Eduardo Maher ; Kimberly Gama ; Kenji Lynch ; Jakub Hinds ; Rob Rodriguez ; Carmen Rhodes ; Anders Burgess Kenneth A. ; Magen Parra ; Eliazar Chavez Conway Other Interventions: Discharge Summary Assessment (RN) Last Done: 03/11/21 10:50
== END 2021-03-11 13:52 | disposition home health service (06) ==
LOC: ASU 08:03 → 2N 08:03
DX: I25.10 Atherosclerotic heart disease of native coronary artery without angina pectoris; G47.33 Obstructive sleep apnea (adult) (pediatric); E11.22 Type 2 diabetes mellitus with diabetic chronic kidney disease; K21.9 Gastro-esophageal reflux disease without esophagitis; I50.32 Chronic diastolic (congestive) heart failure; Z79.899 Other long term (current) drug therapy; J44.9 Chronic obstructive pulmonary disease, unspecified; I13.0 Hypertensive heart and chronic kidney disease with heart failure and stage 1 through stage 4 chronic kidney disease, or unspecified chronic kidney disease; Z79.891 Long term (current) use of opiate analgesic; Z88.8 Allergy status to other drugs, medicaments and biological substances; M17.11 Unilateral primary osteoarthritis, right knee; N18.30 Chronic kidney disease, stage 3 unspecified; Z79.4 Long term (current) use of insulin

== ENCOUNTER 2021-06-26 05:04 | Observation (INO) ==
--- NOTE | 2021-06-22 15:14 | Anesthesiology Consultation ---
Date of Service June 22, 2021 Assessment & Plan (1) Encounter for pre-operative examination: Chart Review Chart Review: Acceptable Risk for Surgery History Surgery Operation Date: 06/26/21 07:00 Proposed Procedures p Right Knee Open Reduction Internal Fixation Patella with Tension Band versus Arthrex Patella Plate - Kamran Haywood DO Height/Weight Height: 4 ft 11 in Weight: 83.915 kg Allergies Allergy/AdvReac Type Severity Reaction Status Date / Time carvedilol AdvReac Mild Heart Verified 06/22/21 12:06 racing Medications Home Medications Medication Instructions Recorded Confirmed Last Taken fluticasone propionate 50 1 spray INTRANASAL DAILY PRN 12/01/19 06/22/21 03/06/21 05:00 mcg/actuation nasal spray,suspension metoprolol tartrate 50 mg tablet 25 mg PO QPM 12/01/19 06/22/21 03/06/21 18:00 metoprolol tartrate 50 mg tablet 50 mg PO QAM 12/01/19 06/22/21 03/07/21 05:00 montelukast 10 mg tablet 10 mg PO HS 12/01/19 06/22/21 03/06/21 18:00 pantoprazole 40 mg tablet,delayed 40 mg PO QAM 12/01/19 06/22/21 03/06/21 05:00 release lancets (Accu-Chek Softclix #100 ea 11/02/20 06/20/21 Unknown Lancets) loratadine 10 mg tablet 10 mg PO QAM #90 tab 01/04/21 06/22/21 03/06/21 22:00 levothyroxine 100 mcg tablet 100 mcg PO QAM #90 tab 01/18/21 06/22/21 03/07/21 05:00 rosuvastatin 20 mg tablet 20 mg PO HS #90 tab 01/18/21 06/22/21 03/06/21 18:00 docusate sodium 50 mg capsule 100 mg PO HS 01/25/21 06/22/21 03/06/21 05:00 (Stool Softener) lisinopril 40 mg tablet 40 mg PO QAM 01/25/21 06/22/21 03/07/21 05:00 blood sugar diagnostic (OneTouch #200 ea 05/02/21 06/20/21 Unknown Verio test strips) clotrimazole-betamethasone 1 1 applic TOPICAL BID PRN 05/11/21 06/22/21 Unknown %-0.05 % topical cream spironolactone 25 mg tablet 25 mg PO QAM 05/11/21 06/22/21 Unknown insulin aspart U-100 100 unit/mL See Rx Instructions .ROUTE 05/15/21 06/22/21 Unknown subcutaneous solution (Novolog .COMPLEX #10 ml U-100 Insulin aspart) isosorbide mononitrate 30 mg 30 mg PO QAM #90 tab 05/16/21 06/22/21 Unknown tablet,extended release 24 hr pregabalin 200 mg capsule 200 mg PO TID #90 cap 05/16/21 06/22/21 Unknown albuterol sulfate 90 mcg/actuation 2 puff INHALATION Q4H PRN #18 g 05/23/21 06/22/21 Unknown aerosol inhaler exenatide microspheres 2 mg/0.85 2 mg SUBCUT Q7D #3.4 ml 05/24/21 06/22/21 Unknown mL subcutaneous auto-injector (Bydureon BCise) furosemide 80 mg tablet 80 mg PO QAM #90 tab 06/07/21 06/22/21 Unknown insulin detemir U-100 100 unit/mL 30 unit SUBCUT BID #10 ml 06/19/21 06/22/21 Unknown subcutaneous solution (Levemir U-100 Insulin) oxycodone-acetaminophen 10 mg-325 1 tab PO Q6H PRN #90 tab 06/20/21 06/22/21 Unknown mg tablet Past Medical History Medical History Aspiration pneumonitis 2019 and resolved CAD (coronary artery disease) Mild, non obstructive disease per 2013 cardiac cath Cervical post-laminectomy syndrome Chronic diastolic CHF (congestive heart failure) follows with Dr. Burden with [facility] Chronic pain CKD (chronic kidney disease) stage 3, GFR 30-59 ml/min Under surveillance by PCP COPD (chronic obstructive pulmonary disease) frequent D.O.E CTS (carpal tunnel syndrome) Degenerative joint disease (DJD) of hip Depression controlled without meds DM type 2 (diabetes mellitus, type 2) IDDM GERD (gastroesophageal reflux disease) Diet related HLD (hyperlipidemia) HTN (hypertension) Hypothyroidism Lumbar disc herniation with radiculopathy Lumbar post-laminectomy syndrome Myocardial Infarction Told "silent heart attack" several years ago Obesity [place] (obstructive sleep apnea) Cannot tolerate device PUD (peptic ulcer disease) Rheumatoid arthritis Temporomandibular joint disorder + clicking, no locking Past Family History Family History Grandmother (Maternal) Family history of diabetes mellitus Grandfather (Maternal) Family history of diabetes mellitus Mother Family history of diabetes mellitus Son Family history of diabetes mellitus Other Heart disease Stroke Denies family history of Ovarian cancer Prostate cancer Myocardial infarction Breast cancer Colorectal cancer Past Surgical History Surgical History H/O cataract extraction bilat H/O excision of lamina of cervical vertebra for decompression of spinal cord [address] Carreno History of back surgery lumbar fusion L3-L4 decompression/fusion (06/09/20): Grade view 1, MAC#3, ETT 7 at [facility] > ROM side to side limited per pt History of breast biopsy right History of cardiac cath 2012 - mild, non obstructive disease > no stents History of colonoscopy History of foot surgery right > toe overlap correction History of hysterectomy History of tonsillectomy and adenoidectomy History of total right knee replacement (02/2021) Hx of blepharoplasty bilat Social History Smoking Status: Never smoker Do You Dip or Chew Tobacco: No Hx Alcohol Use: No Alcohol type: wine alcohol intake frequency: holidays/special occasions only Hx Substance Use: No substance use type: does not use Substance Use Type Other:: oxycodone-acetaminophen Last Used Substance Other:: 12:00 today Testing Electrocardiogram Date: 03/07/21 Findings: + NSR @ (72) and + poor R wave progression (not new) Echocardiogram Date: 06/08/21 EF: 55-60 LV Function: normal Other Findings: + diastolic dysfunction (mild) Valvular Disease: + no significant valvular disease Stress Test Date: 03/06/21 Type: DSE Findings: + WNL
--- NOTE | 2021-06-23 13:50 | History & Physical Report ---
Date of Service June 23, 2021 date of surgery: 06/26/21 ORIF right patella fracture Assessment & Plan (1) Patellar fracture: Plan: she sustained a fall and was taken to the ER by ambulance, x-ray and CT confirm fracture to her right patella, no signs of injury to the total knee replacement and patellar button appears attached. we discussed her options and recommend ORIF right patella fracture with either tension band vs arthrex patellar plate pending intra-operative findings. cont with brace locked in extension until her surgery. The risks and benefits have been discussed including, but not limited to, risk of infection, nerve injury, stiffness, loss of motion, failure to improve, etc. Reasonable outcomes and options of treatment were discussed. An explanation of appropriate alternatives to the procedure that may be advantageous were discussed and their risks and benefits, as well as the risks and benefits of not proceeding with treatment. I offered to answer any additional inquiries concerning the treatment involved. All the patient's questions were answered. The patient is agreeable, understanding of the treatment plan and alternatives, and wishes to proceed with the treatment plan. History of Present Illness Chief Complaint: Right knee pain Primary Care Provider: Jona Blackmon DO Patient is a 76-year-old female who presented to the ER following mechanical fall onto her right knee, she is s/p right TKA in February [address] morgan. She notes that she saw her PCP and had x-rays done as an outpatient. She was found to have a fractured patella and was sent into the ER. she was placed into knee immobilizer and referred to us for definitive treatment. her xrays and CT confirm a displaced patella fracture and stable total knee replacement. Allergies Allergy/AdvReac Type Severity Reaction Status Date / Time carvedilol AdvReac Mild Heart Verified 06/22/21 12:06 racing Home Medications Medication Instructions Recorded Confirmed Type fluticasone propionate 50 1 spray INTRANASAL DAILY PRN 12/01/19 06/22/21 History mcg/actuation nasal spray,suspension metoprolol tartrate 50 mg tablet 25 mg PO QPM 12/01/19 06/22/21 History metoprolol tartrate 50 mg tablet 50 mg PO QAM 12/01/19 06/22/21 History montelukast 10 mg tablet 10 mg PO HS 12/01/19 06/22/21 History pantoprazole 40 mg tablet,delayed 40 mg PO QAM 12/01/19 06/22/21 History release lancets (Accu-Chek Softclix #100 ea 11/02/20 06/20/21 Rx Lancets) loratadine 10 mg tablet 10 mg PO QAM #90 tab 01/04/21 06/22/21 Rx levothyroxine 100 mcg tablet 100 mcg PO QAM #90 tab 01/18/21 06/22/21 Rx rosuvastatin 20 mg tablet 20 mg PO HS #90 tab 01/18/21 06/22/21 Rx docusate sodium 50 mg capsule 100 mg PO HS 01/25/21 06/22/21 History (Stool Softener) lisinopril 40 mg tablet 40 mg PO QAM 01/25/21 06/22/21 History blood sugar diagnostic (OneTouch #200 ea 05/02/21 06/20/21 Rx Verio test strips) clotrimazole-betamethasone 1 1 applic TOPICAL BID PRN 05/11/21 06/22/21 History %-0.05 % topical cream spironolactone 25 mg tablet 25 mg PO QAM 05/11/21 06/22/21 History insulin aspart U-100 100 unit/mL See Rx Instructions .ROUTE 05/15/21 06/22/21 Rx subcutaneous solution (Novolog .COMPLEX #10 ml U-100 Insulin aspart) isosorbide mononitrate 30 mg 30 mg PO QAM #90 tab 05/16/21 06/22/21 Rx tablet,extended release 24 hr pregabalin 200 mg capsule 200 mg PO TID #90 cap 05/16/21 06/22/21 Rx albuterol sulfate 90 mcg/actuation 2 puff INHALATION Q4H PRN #18 g 05/23/21 06/22/21 Rx aerosol inhaler exenatide microspheres 2 mg/0.85 2 mg SUBCUT Q7D #3.4 ml 05/24/21 06/22/21 Rx mL subcutaneous auto-injector (Bydureon BCise) furosemide 80 mg tablet 80 mg PO QAM #90 tab 06/07/21 06/22/21 Rx insulin detemir U-100 100 unit/mL 30 unit SUBCUT BID #10 ml 06/19/21 06/22/21 Rx subcutaneous solution (Levemir U-100 Insulin) oxycodone-acetaminophen 10 mg-325 1 tab PO Q6H PRN #90 tab 06/20/21 06/22/21 Rx mg tablet Past Med/Surg History Medical History Aspiration pneumonitis 2019 and resolved CAD (coronary artery disease) Mild, non obstructive disease per 2012 cardiac cath Cervical post-laminectomy syndrome Chronic diastolic CHF (congestive heart failure) follows with Dr. Burden with [facility] Chronic pain CKD (chronic kidney disease) stage 3, GFR 30-59 ml/min Under surveillance by PCP COPD (chronic obstructive pulmonary disease) frequent D.O.E CTS (carpal tunnel syndrome) Degenerative joint disease (DJD) of hip Depression controlled without meds DM type 2 (diabetes mellitus, type 2) IDDM GERD (gastroesophageal reflux disease) Diet related HLD (hyperlipidemia) HTN (hypertension) Hypothyroidism Lumbar disc herniation with radiculopathy Lumbar post-laminectomy syndrome Myocardial Infarction Told "silent heart attack" several years ago Obesity [place] (obstructive sleep apnea) Cannot tolerate device PUD (peptic ulcer disease) Rheumatoid arthritis Temporomandibular joint disorder + clicking, no locking Surgical History H/O cataract extraction bilat H/O excision of lamina of cervical vertebra for decompression of spinal cord [address] Carreno History of back surgery lumbar fusion L3-L4 decompression/fusion (06/09/20): Grade view 1, MAC#3, ETT 7 at [facility] > ROM side to side limited per pt History of breast biopsy right History of cardiac cath 2012 - mild, non obstructive disease > no stents History of colonoscopy History of foot surgery right > toe overlap correction History of hysterectomy History of tonsillectomy and adenoidectomy History of total right knee replacement (02/2021) Hx of blepharoplasty bilat Family History Grandmother (Maternal) Family history of diabetes mellitus Grandfather (Maternal) Family history of diabetes mellitus Mother Family history of diabetes mellitus Son Family history of diabetes mellitus Other Heart disease Stroke Denies family history of Ovarian cancer Prostate cancer Myocardial infarction Breast cancer Colorectal cancer Social History Smoking Status: Never smoker Second Hand Exposure: No; Hx Alcohol Use: No Hx Substance Use: No Preferred Language: [place] Communication Ability: Effective Visual Impairment: No Limitations Hearing Ability: Use of Hearing Aid 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 Beliefs That Will Affect Care: None marital status: Current Living Situation: Alone Current Living Situation Comment: receives home health current occupational status: retired How many Children do You have: 3 Feels Safe at Home: Yes Childhood Exposure to Second-Hand Smoke: Yes caffeine: No during the past year weight has: increased > 10 lbs Dental Care, Regularly: No Physical Activity Frequency: Other Seatbelt Use: always Sunscreen Use: Yes Assistive Devices: Cane Review of Systems Review of Systems: All systems reviewed & are unremarkable except as noted in HPI & below Constitutional: no fever, no chills and no sweats Respiratory: no cough and no dyspnea Cardiovascular: no chest pain, no dyspnea and no orthopnea Gastrointestinal: no abdominal pain, no nausea and no vomiting Musculoskeletal: as per Subjective / HPI Physical Exam Physical Exam: HT: 4ft 11in WT: 83.915kg Constitutional: WD/WN, vitals as above no acute distress Respiratory: normal respiratory effort, lungs clear to auscultation no respiratory distress, no labored breathing and does not use accessory muscles Cardiovascular: RRR, no murmur, no edema Gastrointestinal (Abdomen): normal bowel sounds, soft, nontender, no hepatosplenomegaly Musculoskeletal: Knee: + knee abnormal to inspection (moderate ecchymosis and +2 effusion), + effusion, + ecchymosis, + surgical incision (well healed mid line incision) and + limited ROM of knee; no skin erythema, no valgus alignment, no varus alignment, no valgus laxity and no varus laxity Results & Data Results & Data ([place]) Diagnostic Findings CT knee RT wo con CLINICAL HISTORY: per ortho fx ? screws COMPARISON STUDY: Right knee radiographs performed earlier today. TECHNIQUE: Axial images of the right knee were obtained without IV contrast. Sagittal and coronal reconstructions were viewed. Automated exposure control was utilized for the study. A dose lowering technique was utilized adhering to the principles of ALARA. FINDINGS: Evaluation is compromised given streak artifact from the right knee arthroplasty. Alignment of the total right knee arthroplasty is anatomic. There is no acute fracture within the distal right femur, proximal right tibial or proximal right fibula. Note is made of an acute displaced transverse fracture through the mid aspect of the patella. Fracture is distracted 2.4 cm. No madie tional acute fractures are noted. There is adjacent soft tissue swelling and suspected contusion. There is a probable joint effusion which could contain hemorrhage. IMPRESSION: 1. Acute transverse fracture within the right patella. Fragments distracted 2.4 cm. Adjacent contusion and right knee joint effusion. 2. Status post total right knee arthroplasty. No additional fractures. No periprosthetic lucency. (1) Patellar fracture Encounter type: initial encounter Fracture alignment: displaced Fracture morphology: unspecified fracture morphology Fracture type: closed Laterality: right Qualified Code(s): S82.001A - Unspecified fracture of right patella, initial encounter for closed fracture
[2021-06-26] MEDS ORDERED: LACTATED RINGER'S 1,000 ML IV SCH (06:00)
[2021-06-26] MEDS ORDERED: ceFAZolin 2000MG 2,000 MG/15 ML SYR IV SCH (06:00)
[2021-06-26] MEDS ORDERED: PROPOFOL IV EMULSION 10 MG/ML 20 ML VIAL IV ONE (06:25)
[2021-06-26] MEDS ORDERED: MIDAZOLAM HCL 1 MG/ML 2ML VIAL ONE (06:25)
[2021-06-26] MEDS ORDERED: fentaNYL citrate 100 MCG/2 ML VIAL ONE ×4 (06:25→08:37)
[2021-06-26] MEDS ORDERED: BUPIVACAINE 0.25% 30 ML VIAL ONE (06:33)
[2021-06-26] MEDS ORDERED: INSULIN ASPART PER UNIT SC STA (06:55)
[2021-06-26] MEDS ORDERED: INSULIN ASPART PER UNIT ONE ×2 (06:59→07:00)
--- NOTE | 2021-06-26 07:06 | History & Physical Bridge Note ---
Date of Service June 26, 2021 History & Physical Bridge Note I have examined the patient, reviewed the History & Physical and in the interval since the performance of the History & Physical I have noted the following changes of clinical significance: no changes noted
[2021-06-26] MEDS ORDERED: ePHEDrine sulfate 50 MG/ML AMP IV PRN (07:12)
[2021-06-26] MEDS ORDERED: ONDANSETRON INJ 2 MG/ML 2 ML VIAL IV PRN ×2 (07:12→12:55)
[2021-06-26] MEDS ORDERED: ATROPINE SULFATE 0.1 MG/ML 10ML SYR IV PRN (07:12)
[2021-06-26] MEDS ORDERED: fentaNYL citrate 100 MCG/2 ML VIAL IV PRN (07:12)
[2021-06-26] MEDS ORDERED: ROCURONIUM BROMIDE 10 MG/ML 5 ML VIAL IV ONE (07:26)
[2021-06-26] MEDS ORDERED: SUCCINYLCHOLINE CHLORIDE 20 MG/ML 10 ML VIAL IV ONE (07:26)
[2021-06-26] MEDS ORDERED: ONDANSETRON INJ 2 MG/ML 2 ML VIAL ONE (07:28)
--- NOTE | 2021-06-26 08:14 | Operative Report ---
Post Operative Report Pre & Post Diagnosis Operation Date: 06/26/21 07:00 Pre-Op Diagnosis: Right Knee Patella Fracture Post-Op Diagnosis: Right Knee Patella Fracture status post total knee arthroplasty I identified the patient and participated in the time-out.: Yes Procedure Operation Date: 06/26/21 07:00 Actual Procedures p Right Knee Open Reduction Internal Fixation Patella with Tension Band(Right) utilizing 36 mm and 40 mm cannulated screw with Arthrex fiber tape- Kamran Haywood DO Surgeon Kamran Haywood DO [employer] Greg GUILLAUME Estimated Blood Loss 5 Findings Consistent with Post-Op Diagnosis Patient presents after having sustained a transverse patellar fracture with the patellar component attached to the main fragment superior fragment of bone attached to quadricep tendon patient was on muscle relaxants felt weak had the buckle and fell and sustained above injury Specimens None Drains None Anesthesia Type General Regional Complications none Disposition Accompanied Patient To Recovery: No Disposition: Recovery Room Indications Patient presents with displaced transverse fracture of the patella status post total knee arthroplasty for reduction internal fixation Description of Procedure Initiation of general anesthesia the right lower extremity socially prepped draped in sterile fashion surgeon type and anterior midline incision made dissection carried down through subcutaneous tissues to the region of the extensor mechanism there was a fracture of the patella was reduced anatomic position both AP and lateral planes the knee was irrigated and washed with pulsatile lavage the soft tissue scarring and fibrinous clot at the region of fracture site was removed subsequently after anatomic reduction of the fracture to 4.0 cannulated screws were placed over guidewires through the fracture fragment of the fracture fragments subsequently tension band wire down utilizing a fiber tape through the cannulated screws which were 36 and 40 mm respectively placed in a parallel fashion wound was irrigated closed on sterile saline solution subcu was closed with 3-0 Vicryl 0 Vicryl subcu was closed in subsequent 3-0 Vicryl skin was closed skin clips sterile compressive dressings placed the patient placed in knee immobilizer In full extension taken recovery in stable condition please note Greg GUILLAUME was necessary prepping draping retraction closure with deep fascia subcu and skin was necessary for the case I attest to the content of the Intraoperative Record and any orders documented therein. Any exceptions are noted below.
[2021-06-26] MEDS ORDERED: HYDROmorphone INJ 0.5 MG/0.5 ML SYR IV PRN (08:30)
[2021-06-26] MEDS ORDERED: oxyCODONE HCL IR 5 MG TAB (IMMEDIATE RELEASE) PO PRN ×2 (08:30→11:33)
[2021-06-26] MEDS: fentaNYL citrate 100 MCG/2 ML VIAL IV PRN ×2 (08:37→08:42)
[2021-06-26] MEDS: HYDROmorphone INJ 1 MG/ML SYRINGE IV PRN ×7 (08:48→09:26)
[2021-06-26] MEDS ORDERED: oxyCODONE HCL IR 5 MG TAB (IMMEDIATE RELEASE) ONE (09:57)
--- NOTE | 2021-06-26 11:19 | Anesthesiology Progress Note ---
Date of Service June 26, 2021 Anesthesia Post Procedure Vital Signs Vital Signs: Temp Pulse Pulse Pulse Resp BP Pulse Ox 06/26/21 09:50 36.8 C 69 16 137/62 94 06/26/21 09:40 65 13 173/70 H 95 06/26/21 09:30 36 C L 66 24 112/68 97 06/26/21 09:20 65 18 174/54 H 99 06/26/21 09:10 65 18 174/54 H 99 06/26/21 09:00 66 24 154/80 H 100 06/26/21 08:50 66 20 146/53 H 100 06/26/21 08:40 66 24 118/73 100 06/26/21 08:31 36.1 C L 66 24 168/85 H 100 06/26/21 05:46 36.8 C 68 20 128/65 96 Pain Intensity Right Knee: Pain Intensity: 9 Transfer of Care Handoff Completed per policy Notes Mental Status: alert / awake / arousable and participated in evaluation Patient Amnestic to Procedure: Yes Nausea / Vomiting: adequately controlled Pain: see Notes below Airway Patency, RR, SpO2: stable & adequate BP & HR: stable & adequate Hydration State: stable & adequate Anesthetic Complications: no major complications apparent, see Notes below and Pt Satisfied with anesthetic care Notes: Pt's pain being managed with dilaudid, fentanyl, nerve block, and percocet. Despite this she continues to rate pain at a 9/10. We have also been unable to wean patient off of oxygen due to being somnolent from narcotics. Pt also states that she will be home alone tonight, but that a friend can check in on her. At this point we will reach out to the primary team and enquire about a possible overnight admission for pain management and oxygen.
[2021-06-26] MEDS: oxyCODONE HCL IR 5 MG TAB (IMMEDIATE RELEASE) PO PRN ×3 (11:52→21:30)
[2021-06-26] MEDS ORDERED: MAGNESIUM HYDROXIDE SUSP 30 ML UDC PO PRN (12:55)
[2021-06-26] MEDS ORDERED: INSULIN ASPART PER UNIT SQ SCH (12:55)
[2021-06-26] MEDS ORDERED: ALBUTEROL HFA 8 GM INHALER INH PRN (12:55)
[2021-06-26] MEDS ORDERED: FLUTICASONE PROPIONATE NA SPR 16 GM BTL PRN (12:55)
[2021-06-26] MEDS ORDERED: bisacodyL 10 MG SUPP PR PRN (12:55)
[2021-06-26] MEDS ORDERED: PHARMACY GLYCEMIC MGMT CONSULT PRN (12:55)
[2021-06-26] MEDS ORDERED: NALOXONE HCL 0.4 MG/1 ML VIAL/CARP IV PRN (12:55)
[2021-06-26] MEDS ORDERED: DEXTROSE 50% 50 ML SYRINGE IV PRN (13:15)
[2021-06-26] MEDS ORDERED: GLUCAGON FOR INJ 1 MG VIAL IM PRN (13:15)
[2021-06-26] MEDS ORDERED: GLUCOSE 40% GEL 15 GM TUBE PO PRN (13:15)
[2021-06-26] MEDS ORDERED: CARBOHYDRATES FOR HYPOGLYCEMIA PO PRN (13:15)
[2021-06-26] MEDS ORDERED: GLUCOSE 10 TABS/TUBE PO PRN (13:15)
[2021-06-26] MEDS ORDERED: INSULIN DETEMIR SC ONE (13:30)
--- NOTE | 2021-06-26 13:39 | Fluoroscopy Report ---
FL knee RT 1 or 2V CLINICAL HISTORY: RT KNEE ORIF COMPARISON STUDY: None FLUOROSCOPY TIME: 19 sex. NUMBER OF FLUOROSCOPIC IMAGES: 1 FINDINGS: Single fluoroscopic operative images presented for review. Metallic prosthetic knee joint is seen. Sc rews are seen projecting to the anatomical region of patella. IMPRESSION: As above. ACT 112: Negative or not required by law. The above report was generated using voice recognition software. It may contain grammatical, syntax o r spelling errors. Electronically signed by: Tatum Canela DO 06/26/2021 1:38 PM
--- NOTE | 2021-06-26 13:41 | Pharmacy Report ---
Pharmacy Glycemic Short Note 2 - Date of Service June 26, 2021 - Glycemic Short BSG Results (Last 24 hours): 06/26/21 06/26/21 06/26/21 05:18 06:17 08:34 POC Glucose 223 H 212 H 164 H 06/26/21 12:51 POC Glucose 196 H OUTPATIENT ANTIDIABETIC REGIMEN: * Levemir 30 units bid, novolog 21 units with breakfast and lunch, novolog 27 units with dinner, Exenatide 2 mg SQ weekly * A1c 8.2% ASSESSMENT: * Patient s/p knee repair, POD 0. Pharmacy consulted for glycemic management. Patient known to service from other admissions. Most recent admission 02/2021 * Plan to utilize similar Levemir/novolog parameters as last admission since BSGs stable * Confirmed with patient last dose of Levemir was last evening - plan to give 30 units x 1 now and have scale for HS as unclear what PO intake will be like p ostop PLAN FOR INPATIENT GLYCEMIC CONTROL: * Hold outpatient oral diabetes medications * Basal insulin * Lantus 30 units x 1 * Lantus 10-20 units HS * Bolus insulin * NovoLog per scale ACHS or Q6hrs while NPO * Goal Range: Low 110 mg/dL - High 140 mg/dL * Correction Factor: 15 mg/dL/unit * Nutritional / Prandial insulin per carb ratio of 1 unit per 5 grams CHO consumed PLAN FOR DISCHARGE: * A1c 8.2% - goal <8% ; reasonable to continue home diabetes medications on discharge as long as patient is not reporting frequent hypoglycemia
[2021-06-26] MEDS: SODIUM CHLORIDE 0.9% 1000ML 1,000 ML IV SCH ×2 (14:04→22:06)
[2021-06-26] MEDS: ACETAMINOPHEN 500 MG TAB PO SCH ×2 (14:04→21:27)
[2021-06-26] MEDS: PREGABALIN 100 MG CAP PO SCH ×2 (14:04→20:51)
[2021-06-26] MEDS: HYDROmorphone INJ 0.5 MG/0.5 ML SYR IV PRN ×3 (14:05→23:52)
[2021-06-26] MEDS: INSULIN ASPART 100 UNITS/ML 3 ML PEN SC SCH ×3 (14:15→20:53)
[2021-06-26] MEDS: ceFAZolin 2000MG 2,000 MG/15 ML SYR IV SCH ×2 (15:33→23:42)
[2021-06-26] MEDS: DOCUSATE SODIUM 100 MG CAP PO SCH (20:43)
[2021-06-26] MEDS: MONTELUKAST SODIUM 10 MG TABLET PO SCH (20:45)
[2021-06-26] MEDS: ROSUVASTATIN CALCIUM 20 MG TAB PO SCH (20:45)
[2021-06-26] MEDS: METOPROLOL TARTRATE 25 MG TAB PO SCH (20:45)
[2021-06-26] MEDS: SENNA 8.6 MG TAB PO SCH (20:46)
[2021-06-26] MEDS ORDERED: INSULIN DETEMIR SC SCH (21:00)
[2021-06-27] MEDS: oxyCODONE HCL IR 5 MG TAB (IMMEDIATE RELEASE) PO PRN ×5 (01:59→21:30)
[2021-06-27] MEDS: SODIUM CHLORIDE 0.9% 1000ML 1,000 ML IV SCH (03:42)
[2021-06-27] MEDS: HYDROmorphone INJ 0.5 MG/0.5 ML SYR IV PRN ×3 (05:44→18:39)
[2021-06-27] MEDS: ACETAMINOPHEN 500 MG TAB PO SCH ×3 (05:44→21:24)
[2021-06-27] MEDS: LEVOTHYROXINE SODIUM 100 MCG TABLET PO SCH (05:44)
[2021-06-27 06:16] LABS: Hematocrit (blood only) 34.5 % (37-47); Hemoglobin 10.4 g/dL (12.0-16.0); Mean Corpuscular Hemoglobin 25.6 pg (25-34); Mean Corpuscular Hgb Conc 30.1 g/dL (32-36); Mean Corpuscular Volume 84.8 fL (80-100); Mean Platelet Volume 9.1 fL (7.4-10.4); Platelet Count 319 K/uL (130-400); RDW Coefficient of Variation 16.6 % (11.5-14.5); RDW Standard Deviation 51.4 fL (36.4-46.3); Red Blood Count 4.07 M/uL (4.2-5.4); White Blood Count 9.16 K/uL (4.8-10.8)
[2021-06-27 06:48] LABS: BUN Creatinine Ratio 25.4 (10-20); Calcium 8.5 mg/dl (8.5-10.1); Creatinine Clr Calc Pharmacy 54.1 ml/min; Est GFR (African American) 76.1 ml/min; Est GFR (Non-African American) 65.6 ml/min
[2021-06-27] MEDS: PANTOprazole 40 MG TAB PO SCH (07:11)
[2021-06-27] MEDS: PREGABALIN 100 MG CAP PO SCH ×3 (08:17→20:16)
[2021-06-27] MEDS: METOPROLOL TARTRATE 50 MG TAB PO SCH (08:18)
[2021-06-27] MEDS: lisinopril 40 MG TAB PO SCH (08:19)
[2021-06-27] MEDS: MULTIVITAMIN TAB PO SCH (08:19)
[2021-06-27] MEDS: SPIRONOLACTONE 25 MG TAB PO SCH (08:19)
[2021-06-27] MEDS: FUROSEMIDE 80 MG TAB PO SCH (08:19)
[2021-06-27] MEDS: LORATADINE 10 MG TAB PO SCH (08:19)
[2021-06-27] MEDS: ISOSORBIDE MONO EXTENDED REL 30 MG TABCR PO SCH (08:19)
[2021-06-27] MEDS: INSULIN ASPART 100 UNITS/ML 3 ML PEN SC SCH ×4 (08:23→21:22)
[2021-06-27] MEDS: DOCUSATE SODIUM 100 MG CAP PO SCH ×2 (08:24→20:10)
--- NOTE | 2021-06-27 08:51 | Orthopedic Progress Note ---
Date of Service June 27, 2021 Assessment & Plan (1) Patellar fracture: Plan: Postop day 1 status post ORIF right patellar fracture. PT/OT protocols. Weightbearing as tolerated with immobilizer on at all times. DVT prophylaxis-we will start aspirin p.o. twice daily. SCD on lower extremities. Pain management currently as written. Patient has history of chronic pain issues of which she was taking 10 mg of Percocet every 6 hours at home. If her pain management is not controlled, we will consider having pain management team see her for further recommendations. I talked to the patient about sending her home on her original pain medication but shortening the timing of the dosing. She seemed amenable to this. DC planning-Case management has seen the patient this morning. We will see how her physical therapy goes with her ambulation. Consider short-term rehab stay versus fdc facility if ambulation is poor. Admission and Anticipated Discharge Date Admission Date: June 26, 2021 Subjective Postop day 1 Patient sitting up at bedside eating breakfast. Immobilizers on. Having some pain but appears to be controlled. States that yesterday was a rough day. No new complaints. We discussed that she would have to progress well with her PT before we can send her home. Patient apparently lives alone and was receiving nursing care 3 times a week. We discussed that she would have to be ambulating quite well to go home. If her ambulation is limited, we discussed that she might need to [facility] to [facility] versus a skilled facility. Patient seems somewhat amenable to [facility] but unsure of a [facility] facility. Physical Exam Physical Exam: Dressings are intact. Immobilizer in place. She is moving her toes well. Neurovascular appears intact. Results & Data ([facility]) Vital Signs (Past 12 Hours) Vital Signs Temp Pulse Resp BP Pulse Ox 06/27/21 07:13 37.1 C 73 16 164/71 H 91 06/27/21 03:33 37 C 69 20 166/77 H 97 06/26/21 22:52 37.2 C 76 20 155/47 H 93 Laboratory Results Laboratory Results WBC 9.16 K/uL (4.8-10.8) 06/27/21 05:22 RBC 4.07 M/uL (4.2-5.4) L 06/27/21 05:22 Hgb 10.4 g/dL (12.0-16.0) L 06/27/21 05:22 Hct 34.5 % (37-47) L 06/27/21 05:22 MCV 84.8 fL (80-100) 06/27/21 05:22 MCH 25.6 pg (25-34) 06/27/21 05:22 MCHC 30.1 g/dL (32-36) L 06/27/21 05:22 RDW Std Deviation 51.4 fL (36.4-46.3) H 06/27/21 05:22 RDW Coeff of Burak 16.6 % (11.5-14.5) H 06/27/21 05:22 Plt Count 319 K/uL (130-400) 06/27/21 05:22 MPV 9.1 fL (7.4-10.4) 06/27/21 05:22 Sodium 142 mmol/L (136-145) 06/27/21 05:22 Potassium 4.0 mmol/L (3.5-5.1) 06/27/21 05:22 Chloride 108 mmol/L (98-107) H 06/27/21 05:22 Carbon Dioxide 31 mmol/L (21-32) 06/27/21 05:22 Anion Gap 3.0 (3-11) 06/27/21 05:22 BUN 22 mg/dl (7-18) H 06/27/21 05:22 Creatinine 0.85 mg/dl (0.6-1.2) 06/27/21 05:22 Est Cr Clr Drug Dosing 54.1 ml/min 06/27/21 05:22 Est GFR ( Amer) 76.1 ml/min 06/27/21 05:22 Est GFR (Non-Af Amer) 65.6 ml/min 06/27/21 05:22 BUN/Creatinine Ratio 25.4 (10-20) H 06/27/21 05:22 Glucose 133 mg/dl (70-99) H 06/27/21 05:22 POC Glucose 176 mg/dl (70-99) H 06/27/21 08:02 Calcium 8.5 mg/dl (8.5-10.1) 06/27/21 05:22 (1) Patellar fracture Encounter type: initial encounter Fracture alignment: displaced Fracture morphology: unspecified fracture morphology Fracture type: closed Laterality: right Qualified Code(s): S82.001A - Unspecified fracture of right patella, initial encounter for closed fracture
[2021-06-27] MEDS ORDERED: INSULIN DETEMIR SC SCH (09:00)
[2021-06-27] MEDS: ASPIRIN 81 MG ECTAB PO SCH ×2 (11:15→20:10)
--- NOTE | 2021-06-27 11:57 | Hospitalist Consultation ---
Date of Consultation June 27, 2021 Assessment & Plan (1) Patellar fracture: - S/P ORIF of patella on 26 June 2021; doing well-postoperatively - Pain management and bowel regimen ordered; surgical management per primary team - DVT prophylaxis - ASA 81 mg BID - WBAT - PT/OT following . (2) COPD (chronic obstructive pulmonary disease): - No acute exacerbation at this time - Abulterol PRN; Montelukast 10 mg daily (3) CKD (chronic kidney disease) stage 3, GFR 30-59 ml/min: - STABLE - Avoid nephrotoxins when able (4) HLD (hyperlipidemia): - Continue Rosuvastatin 20 mg daily (5) DM type 2 (diabetes mellitus, type 2): - A1c 8.2 - Appreciate glycemic management; plan to resume home regimen on D/C (6) CAD (coronary artery disease): - Reports no current CP - Continue Isosorbide mononitrate 30 mg AM; ASA; Statin (7) Chronic diastolic CHF (congestive heart failure): - No acute decompensation at this time - Continue Lasix 80 mg daily and Spironolactone 25 mg daily - Monitor labs routinely (8) HTN (hypertension): - Elevated but improved from yesterday; diastolic has been acceptable so maybe a component of pain response - Continue Metoprolol 50 mg AM and 25 mg PM; Lisinopril 40 mg daily; (9) Hypothyroidism: - Continue Levothyroxine 100 mcg daily - Medically stable at this time; Hospitalists will continue to follow Supervising Physician Co-Signing Physician Notes Patient seen and examined with Lizet Pressley PA-C. I agree with her exam findings, review of systems, assessment and plan. I personally reviewed the lab work and imaging as well. patient doing well, she says she has more pain in her knee right now than when she had her TKA, I explained that she had a fracture this time which is painful she is breathing well, eating well, no fever, no chest pain - Right patella fracture, s/p ORIF - COPD: lungs clear, on room air, no distress - CKD: check BMP, making urine, drinking well check labs in AM, will continue to follow on 06/28, thank you for consult History of Present Illness Reason for Consultation: Medical Management Attending Physician: Kamran Haywood DO History of Present Illness Ms. Giraldo is a 76 y/o female with PMHx of COPD, MONROE, T2DM, HLD, HTN, Hypothyroidism, CAD, Chronic Diastolic CHF, and CKD III who is S/P ORIF due to R patella fx on 26 June 2021. Patient had a TKA in February 2021. She states she was in her kitchen and heard a pop and her leg gave out and she fell to the floor. She thinks she possibly hit a 6-pack of Coke that was on the floor with her knee but she is not sure. She is doing well post-operatively and reports her pain is currently under control. She worked with PT earlier in the morning. She is t olerating her diet and moving her bowels. No acute exacerbations of her chronic medical conditions at this time. Allergies Allergy/AdvReac Type Severity Reaction Status Date / Time carvedilol AdvReac Mild Heart Verified 06/26/21 05:29 racing Home Medications Medication Instructions Recorded Confirmed Type fluticasone propionate 50 1 spray INTRANASAL DAILY PRN 12/01/19 06/26/21 History mcg/actuation nasal spray,suspension metoprolol tartrate 50 mg tablet 25 mg PO QPM 12/01/19 06/26/21 History metoprolol tartrate 50 mg tablet 50 mg PO QAM 12/01/19 06/26/21 History montelukast 10 mg tablet 10 mg PO HS 12/01/19 06/26/21 History pantoprazole 40 mg tablet,delayed 40 mg PO QAM 12/01/19 06/26/21 History release (Protonix) lancets (Accu-Chek Softclix #100 ea 11/02/20 06/20/21 Rx Lancets) loratadine 10 mg tablet 10 mg PO QAM #90 tab 01/04/21 06/26/21 Rx levothyroxine 100 mcg tablet 100 mcg PO QAM #90 tab 01/18/21 06/26/21 Rx rosuvastatin 20 mg tablet 20 mg PO HS #90 tab 01/18/21 06/26/21 Rx docusate sodium 50 mg capsule 100 mg PO HS 01/25/21 06/26/21 History (Stool Softener) lisinopril 40 mg tablet 40 mg PO QAM 01/25/21 06/26/21 History blood sugar diagnostic (OneTouch #200 ea 05/02/21 06/20/21 Rx Verio test strips) clotrimazole-betamethasone 1 1 applic TOPICAL BID PRN 05/11/21 06/26/21 History %-0.05 % topical cream spironolactone 25 mg tablet 25 mg PO QAM 05/11/21 06/26/21 History (Aldactone) insulin aspart U-100 100 unit/mL See Rx Instructions .ROUTE 05/15/21 06/26/21 Rx subcutaneous solution (Novolog .COMPLEX #10 ml U-100 Insulin aspart) isosorbide mononitrate 30 mg 30 mg PO QAM #90 tab 05/16/21 06/26/21 Rx tablet,extended release 24 hr albuterol sulfate 90 mcg/actuation 2 puff INHALATION Q4H PRN #18 g 05/23/21 06/26/21 Rx aerosol inhaler exenatide microspheres 2 mg/0.85 2 mg SUBCUT Q7D #3.4 ml 05/24/21 06/26/21 Rx mL subcutaneous auto-injector (Bydureon BCise) furosemide 80 mg tablet 80 mg PO QAM #90 tab 06/07/21 06/26/21 Rx insulin detemir U-100 100 unit/mL 30 unit SUBCUT BID #10 ml 06/19/21 06/26/21 Rx subcutaneous solution (Levemir U-100 Insulin) oxycodone-acetaminophen 10 mg-325 1 tab PO Q4H #18 tab MDD 6 06/26/21 Rx mg tablet pregabalin 200 mg capsule (Lyrica) 200 mg PO TID 06/26/21 06/26/21 History Patient History Medical History Aspiration pneumonitis 2019 and resolved CAD (coronary artery disease) Mild, non obstructive disease per 2013 cardiac cath Cervical post-laminectomy syndrome Chronic diastolic CHF (congestive heart failure) follows with Dr. Burden with [facility] Chronic pain CKD (chronic kidney disease) stage 3, GFR 30-59 ml/min Under surveillance by PCP COPD (chronic obstructive pulmonary disease) frequent D.O.E CTS (carpal tunnel syndrome) Degenerative joint disease (DJD) of hip Depression controlled without meds DM type 2 (diabetes mellitus, type 2) IDDM GERD (gastroesophageal reflux disease) Diet related HLD (hyperlipidemia) HTN (hypertension) Hypothyroidism Lumbar disc herniation with radiculopathy Lumbar post-laminectomy syndrome Myocardial Infarction Told "silent heart attack" several years ago Obesity MONROE (obstructive sleep apnea) Cannot tolerate device PUD (peptic ulcer disease) Rheumatoid arthritis Temporomandibular joint disorder + clicking, no locking Surgical History H/O cataract extraction bilat H/O excision of lamina of cervical vertebra for decompression of spinal cord [address] Carreno History of back surgery lumbar fusion L3-L4 decompression/fusion (06/09/20): Grade view 1, MAC#3, ETT 7 at [facility] > ROM side to side limited per pt History of breast biopsy right History of cardiac cath 2012 - mild, non obstructive disease > no stents History of colonoscopy History of foot surgery right > toe overlap correction History of hysterectomy History of tonsillectomy and adenoidectomy History of total right knee replacement (02/2021) Hx of blepharoplasty bilat Family History Grandmother (Maternal) Family history of diabetes mellitus Grandfather (Maternal) Family history of diabetes mellitus Mother Family history of diabetes mellitus Son Family history of diabetes mellitus Other Heart disease Stroke Denies family history of Ovarian cancer Prostate cancer Myocardial infarction Breast cancer Colorectal cancer Social History Smoking Status: Never smoker Second Hand Exposure: No; Do You Dip or Chew Tobacco: No; Tobacco Cessation Education Requested by Patient: No Hx Alcohol Use: No Hx Substance Use: No Preferred Language: Greenlandic Communication Ability: Effective Visual Impairment: No Limitations Hearing Ability: Use of Hearing Aid 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 [employer]or Required: No Beliefs That Will Affect Care: None marital status: Current Living Situation: Alone Current Living Situation Comment: receives home health current occupational status: retired How many Children do You have: 3 Other Information That Helps Us Care for You: No Feels Safe at Home: Yes Safety Concerns: Feels Safe At This Time Childhood Exposure to Second-Hand Smoke: Yes caffeine: No during the past year weight has: increased > 10 lbs Dental Care, Regularly: No Physical Activity Frequency: Other Seatbelt Use: always Sunscreen Use: Yes Assistive Devices: Walker Review of Systems Review of Systems: REVIEW OF SYSTEMS General/Constitutional: Denies fever/chills, fatigue, weakness ENT: Denies visual changes, nasal drainage, hearing loss, sore throat, trouble swallowing Cardiovascular: Denies chest pain, palpitations, edema Respiratory: Denies cough, sputum, SOB, wheezing, orthopnea GI: Denies nausea, vomiting, abdominal pain, constipation, diarrhea, melena/hematochezia : Denies dysuria, frequency, hematuria Musculoskeletal: + knee pain (controlled with pain regimen) Neurologic: Denies dizziness/lightheadedness, numbness/tingling, weakness Hematologic/Lymphatic: Denies bleeding/clotting abnormalities Skin: Denies rash, itch Physical Exam Physical Exam: PHYSICAL EXAM General Appearance: WDWN in NAD who is A&O x 3 HEENT: Head is normocephalic/atraumatic; EOMI; PERRLA; Hearing grossly intact; Mucous membranes moist; Pharynx negative for exudate/lesions Neck: Supple; Trachea midline; Neg JVD; Neg lymphadenopathy Heart: RRR with no M/G/R Lungs: CTA in all lung mccauley bilaterally; Respirations unlabored; Neg accessory muscle use Abdomen: Soft, non-tender, non-distended; Positive BS x 4 quadrants Extremities: R knee with immobilizer and LEFTY wrap which was not removed; Movement and sensation intact to b/l feet/ankles/lower legs Neurological: Speech clear; Gross motor/sensory function intact; Neg focal neurologic deficits Psychiatric: Appropriate mood/affect Skin: Normal Color; Warm/Dry; Neg rashes, ecchymosis, lacerations/ulcerations Results & Data Results & Data ([facility]) Vital Signs (Past 12 Hours) Vital Signs Temp Pulse Resp BP Pulse Ox 06/27/21 07:13 37.1 C 73 16 164/71 H 91 06/27/21 03:33 37 C 69 20 166/77 H 97 PG Care Time/CCT Total # of Minutes Spent Total Time Spent with Patient: Total time spent is greater than 50% in coordination of care (as documented) at patient's floor/unit and/or counseling patient: Coding Level of Care Code 90932 Inpt Consult Level 3 Diagnoses Patellar fracture S82.001A Encounter type: initial encounter Fracture alignment: displaced Fracture morphology: unspecified fracture morphology Fracture type: closed Laterality: right COPD (chronic obstructive pulmonary disease) J44.9 CKD (chronic kidney disease) stage 3, GFR 30-59 ml/min N18.3 HLD (hyperlipidemia) E78.5 DM type 2 (diabetes mellitus, type 2) E11.9 CAD (coronary artery disease) I25.10 Chronic diastolic CHF (congestive heart failure) I50.32 HTN (hypertension) I10 Hypothyroidism E03.9 (1) Patellar fracture Encounter type: initial encounter Fracture alignment: displaced Fracture morphology: unspecified fracture morphology Fracture type: closed Laterality: right Qualified Code(s): S82.001A - Unspecified fracture of right patella, initial encounter for closed fracture
[2021-06-27] MEDS: METOPROLOL TARTRATE 25 MG TAB PO SCH (20:11)
[2021-06-27] MEDS: SENNA 8.6 MG TAB PO SCH (20:12)
[2021-06-27] MEDS: MONTELUKAST SODIUM 10 MG TABLET PO SCH (20:12)
[2021-06-27] MEDS: ROSUVASTATIN CALCIUM 20 MG TAB PO SCH (20:13)
[2021-06-27] MEDS: INSULIN DETEMIR SC SCH (21:23)
[2021-06-28] MEDS: oxyCODONE HCL IR 5 MG TAB (IMMEDIATE RELEASE) PO PRN ×4 (04:57→19:48)
[2021-06-28] MEDS: ACETAMINOPHEN 500 MG TAB PO SCH ×3 (06:10→21:01)
[2021-06-28] MEDS: LEVOTHYROXINE SODIUM 100 MCG TABLET PO SCH (06:11)
[2021-06-28] MEDS: PANTOprazole 40 MG TAB PO SCH (07:10)
[2021-06-28] MEDS: SPIRONOLACTONE 25 MG TAB PO SCH (07:16)
[2021-06-28] MEDS: FUROSEMIDE 80 MG TAB PO SCH (07:16)
[2021-06-28] MEDS: METOPROLOL TARTRATE 50 MG TAB PO SCH (07:46)
[2021-06-28] MEDS: ASPIRIN 81 MG ECTAB PO SCH ×2 (07:46→20:50)
[2021-06-28] MEDS: PREGABALIN 100 MG CAP PO SCH ×3 (07:46→21:04)
[2021-06-28] MEDS: LORATADINE 10 MG TAB PO SCH (07:46)
[2021-06-28] MEDS: lisinopril 40 MG TAB PO SCH (07:47)
[2021-06-28] MEDS: MULTIVITAMIN TAB PO SCH (07:47)
[2021-06-28] MEDS: ISOSORBIDE MONO EXTENDED REL 30 MG TABCR PO SCH (07:47)
[2021-06-28] MEDS: INSULIN DETEMIR SC SCH ×2 (07:48→20:55)
[2021-06-28] MEDS: DOCUSATE SODIUM 100 MG CAP PO SCH ×2 (07:48→20:51)
[2021-06-28] MEDS: INSULIN ASPART 100 UNITS/ML 3 ML PEN SC SCH ×4 (07:49→20:53)
[2021-06-28] MEDS: HYDROmorphone INJ 0.5 MG/0.5 ML SYR IV PRN (08:20)
--- NOTE | 2021-06-28 08:37 | Pharmacy Report ---
Pharmacy Glycemic Short Note 2 - Date of Service June 28, 2021 - Glycemic Short BSG Results (Last 24 hours): 06/27/21 06/27/21 06/27/21 12:03 17:12 20:44 POC Glucose 245 H 138 H 189 H 06/28/21 06:54 POC Glucose 148 H OUTPATIENT ANTIDIABETIC REGIMEN: * Levemir 30 units bid, novolog 21 units with breakfast and lunch, novolog 27 units with dinner, Exenatide 2 mg SQ weekly * A1c 8.2% ASSESSMENT: 06/28/21: * POD #3 s/p knee repair. Patient demonstrated decent glycemic control yesterday with a total of 88 units of insulin: * 52 units of basal * 36 units of bolus * BSGs: 176, 245, 138, 189 mg/dL * Fasting BSG of 148 mg/dL is slightly above goal but improved compared to 06/27. Continue Lantus dosed per scale. * Post prandial BSGs are mostly above goal. Correction factor was tightened yesterday. May need to increase carb coverage if trend continues. Background: * Patient s/p knee repair, POD 0. Pharmacy consulted for glycemic management. Patient known to service from other admissions. Most recent admission 02/2021 * Plan to utilize similar Levemir/novolog parameters as last admission since BSGs stable * Confirmed with patient last dose of Levemir was last evening - plan to give 30 units x 1 now and have scale for HS as unclear what PO intake will be like postop PLAN FOR INPATIENT GLYCEMIC CONTROL: * Hold outpatient oral diabetes medications * Basal insulin * Lantus per scale SQ BID: * 20 units for BSG < 140 * 25 units for BSG 140 - 180 * 30 units for BSG > 180 * Bolus insulin * NovoLog per scale ACHS or Q6hrs while NPO * Goal Range: Low 110 mg/dL - High 140 mg/dL * Correction Factor: 12 mg/dL/unit * Nutritional / Prandial insulin per carb ratio of 1 unit per 5 grams CHO consumed PLAN FOR DISCHARGE: * A1c 8.2% - goal <8% ; reasonable to continue home diabetes medications on discharge as long as patient is not reporting frequent hypoglycemia
--- NOTE | 2021-06-28 09:21 | Orthopedic Progress Note ---
Date of Service June 28, 2021 Assessment & Plan (1) Patellar fracture: Plan: Postop day 2 status post ORIF right patellar fracture. PT/OT protocols. Weightbearing as tolerated with immobilizer on at all times. DVT prophylaxis-we will start aspirin p.o. twice daily. SCD on lower extremities. Pain management currently as written. Patient has history of chronic pain issues of which she was taking 10 mg of Percocet every 6 hours at home. If her pain management is not controlled, we will consider having pain management team see her for further recommendations. I talked to the patient about sending her home on her original pain medication but shortening the timing of the dosing. She seemed amenable to this. DC planning- PT/OT recommending rehab placement, has been submitted and awaiting auth. If approved she can be transferred today and f/u in the office in 12-14 days. Admission and Anticipated Discharge Date Admission Date: June 26, 2021 Subjective Postop day 2 Patient resting in bed, immobilizers on. pain 02/04 presently. awaiting poss rehab placement.. Review of Systems Respiratory: no cough and no dyspnea Cardiovascular: no chest pain and no dyspnea Physical Exam Physical Exam: Vital Signs Temp Pulse Pulse Resp BP BP Pulse Ox 06/28/21 06:57 36.7 C 73 20 140/72 96 06/27/21 22:50 37.2 C 77 18 147/68 H 93 06/27/21 20:08 81 163/67 H 06/27/21 14:45 36.9 C 70 18 142/56 H 91 Intake and Output 06/27/21 06/28/21 06/28/21 22:59 06:59 14:59 Intake Total 300 / 1300 Balance 300 / -150 Intake: Oral 300 / 300 Other: # Unmeasured Voi ds 1 2 Constitutional: WD/WN, vitals as above Musculoskeletal: right knee: immobilizer on, dressing intact. able to wiggle her toes, ankle pumps without pain. Results & Data ([facility]) Vital Signs (Past 12 Hours) Vital Signs Temp Pulse Resp BP Pulse Ox 06/28/21 06:57 36.7 C 73 20 140/72 96 06/27/21 22:50 37.2 C 77 18 147/68 H 93 Laboratory Results Lab Results 06/26/21 06/26/21 06/26/21 Range/Units 05:18 06:17 08:34 WBC (4.8-10.8) K/uL RBC (4.2-5.4) M/uL Hgb (12.0-16.0) g/dL Hct (37-47) % MCV (80-100) fL MCH (25-34) pg MCHC (32-36) g/dL RDW Std Deviation (36.4-46.3) fL RDW Coeff of Burak (11.5-14.5) % Plt Count (130-400) K/uL MPV (7.4-10.4) fL Sodium (136-145) mmol/L Potassium (3.5-5.1) mmol/L Chloride (98-107) mmol/L Carbon Dioxide (21-32) mmol/L Anion Gap (3-11) BUN (7-18) mg/dl Creatinine (0.6-1.2) mg/dl Est Cr Clr Drug Dosing ml/min Est GFR ( Amer) ml/min Est GFR (Non-Af Amer) ml/min BUN/Creatinine Ratio (10-20) Glucose (70-99) mg/dl POC Glucose 223 H 212 H 164 H (70-99) mg/dl Calcium (8.5-10.1) mg/dl 06/26/21 06/26/21 06/26/21 Range/Units 12:51 17:07 20:41 WBC (4.8-10.8) K/uL RBC (4.2-5.4) M/uL Hgb (12.0-16.0) g/dL Hct (37-47) % MCV (80-100) fL MCH (25-34) pg MCHC (32-36) g/dL RDW Std Deviation (36.4-46.3) fL RDW Coeff of Burak (11.5-14.5) % Plt Count (130-400) K/uL MPV (7.4-10.4) fL Sodium (136-145) mmol/L Potassium (3.5-5.1) mmol/L Chloride (98-107) mmol/L Carbon Dioxide (21-32) mmol/L Anion Gap (3-11) BUN (7-18) mg/dl Creatinine (0.6-1.2) mg/dl Est Cr Clr Drug Dosing ml/min Est GFR ( Amer) ml/min Est GFR (Non-Af Amer) ml/min BUN/Creatinine Ratio (10-20) Glucose (70-99) mg/dl POC Glucose 196 H 198 H 164 H (70-99) mg/dl Calcium (8.5-10.1) mg/dl 06/27/21 06/27/21 06/27/21 Range/Units 05:22 05:22 08:02 WBC 9.16 (4.8-10.8) K/uL RBC 4.07 L (4.2-5.4) M/uL Hgb 10.4 L (12.0-16.0) g/dL Hct 34.5 L (37-47) % MCV 84.8 (80-100) fL MCH 25.6 (25-34) pg MCHC 30.1 L (32-36) g/dL RDW Std Deviation 51.4 H (36.4-46.3) fL RDW Coeff of Burak 16.6 H (11.5-14.5) % Plt Count 319 (130-400) K/uL MPV 9.1 (7.4-10.4) fL Sodium 142 (136-145) mmol/L Potassium 4.0 (3.5-5.1) mmol/L Chloride 108 H (98-107) mmol/L Carbon Dioxide 31 (21-32) mmol/L Anion Gap 3.0 (3-11) BUN 22 H (7-18) mg/dl Creatinine 0.85 (0.6-1.2) mg/dl Est Cr Clr Drug Dosing 54.1 ml/min Est GFR ( Amer) 76.1 ml/min Est GFR (Non-Af Amer) 65.6 ml/min BUN/Creatinine Ratio 25.4 H (10-20) Glucose 133 H (70-99) mg/dl POC Glucose 176 H (70-99) mg/dl Calcium 8.5 (8.5-10.1) mg/dl 06/27/21 06/27/21 06/27/21 Range/Units 12:03 17:12 20:44 WBC (4.8-10.8) K/uL RBC (4.2-5.4) M/uL Hgb (12.0-16.0) g/dL Hct (37-47) % MCV (80-100) fL MCH (25-34) pg MCHC (32-36) g/dL RDW Std Deviation (36.4-46.3) fL RDW Coeff of Burak (11.5-14.5) % Plt Count (130-400) K/uL MPV (7.4-10.4) fL Sodium (136-145) mmol/L Potassium (3.5-5.1) mmol/L Chloride (98-107) mmol/L Carbon Dioxide (21-32) mmol/L Anion Gap (3-11) BUN (7-18) mg/dl Creatinine (0.6-1.2) mg/dl Est Cr Clr Drug Dosing ml/min Est GFR ( Amer) ml/min Est GFR (Non-Af Amer) ml/min BUN/Creatinine Ratio (10-20) Glucose (70-99) mg/dl POC Glucose 245 H 138 H 189 H (70-99) mg/dl Calcium (8.5-10.1) mg/dl 06/28/21 Range/Units 06:54 WBC (4.8-10.8) K/uL RBC (4.2-5.4) M/uL Hgb (12.0-16.0) g/dL Hct (37-47) % MCV (80-100) fL MCH (25-34) pg MCHC (32-36) g/dL RDW Std Deviation (36.4-46.3) fL RDW Coeff of Burak (11.5-14.5) % Plt Count (130-400) K/uL MPV (7.4-10.4) fL Sodium (136-145) mmol/L Potassium (3.5-5.1) mmol/L Chloride (98-107) mmol/L Carbon Dioxide (21-32) mmol/L Anion Gap (3-11) BUN (7-18) mg/dl Creatinine (0.6-1.2) mg/dl Est Cr Clr Drug Dosing ml/min Est GFR ( Amer) ml/min Est GFR (Non-Af Amer) ml/min BUN/Creatinine Ratio (10-20) Glucose (70-99) mg/dl POC Glucose 148 H (70-99) mg/dl Calcium (8.5-10.1) mg/dl (1) Patellar fracture Encounter type: initial encounter Fracture alignment: displaced Fracture morphology: unspecified fracture morphology Fracture type: closed Laterality: right Qualified Code(s): S82.001A - Unspecified fracture of right patella, initial encounter for closed fracture
--- NOTE | 2021-06-28 09:40 | Hospitalist Progress Note ---
Date of Service June 28, 2021 Assessment & Plan (1) Patellar fracture: Plan: - S/P ORIF of patella on 26 June 2021; doing well-postoperatively but with some increased pain today - Pain management and bowel regimen ordered; surgical management per primary team - Had some abdominal pain this AM and got some relief with Protonix - is belching and passing gas, last BM was a couple days ago and loose - will continue to monitor -- Tolerated her breakfast but will need to monitor for ileus - DVT prophylaxis - ASA 81 mg BID - WBAT - PT/OT following . (2) COPD (chronic obstructive pulmonary disease): Plan: - No acute exacerbation at this time - Abulterol PRN; Montelukast 10 mg daily (3) CKD (chronic kidney disease) stage 3, GFR 30-59 ml/min: Plan: - STABLE - Avoid nephrotoxins when able (4) HLD (hyperlipidemia): Plan: - Continue Rosuvastatin 20 mg daily (5) DM type 2 (diabetes mellitus, type 2): Plan: - A1c 8.2 - Appreciate glycemic management; plan to resume home regimen on D/C (6) CAD (coronary artery disease): Plan: - Reports no current CP - Continue Isosorbide mononitrate 30 mg AM; ASA; Statin (7) Chronic diastolic CHF (congestive heart failure): Plan: - No acute decompensation at this time - Continue Lasix 80 mg daily and Spironolactone 25 mg daily - Monitor labs routinely (8) HTN (hypertension): Plan: - Elevated but improved from yesterday; diastolic has been acceptable so maybe a component of pain response - Continue Metoprolol 50 mg AM and 25 mg PM; Lisinopril 40 mg daily; (9) Hypothyroidism: Plan: - Continue Levothyroxine 100 mcg daily Plan: - Medically stable at this time - monitor for ileus; Hospitalists will continue to follow Admission and Anticipated Discharge Date Admission Date: June 26, 2021 Subjective Having a bit more pain today in the knee right at the knee cap. She does have chronic pain issues. She also had some abdominal pain this morning. It has since resolved but states she is belching. She reports she is passing gas and last BM was on the 30 and was diarrhea. She has active bowel sounds currently. Some ice water seemed to help with stomach. Will monitor given possibility of ileus. Review of Systems Review of Systems: REVIEW OF SYSTEMS General/Constitutional: Denies fever/chills ENT: Denies nasal drainage, sore throat Cardiovascular: Denies chest pain, palpitations, edema Respiratory: Denies cough, sputum, SOB, wheezing, orthopnea GI: +belching, + abdominal pain (resolved); Denies nausea, vomiting, constipation, diarrhea : Denies dysuria Musculoskeletal: + knee pain (worse today) Neurologic: Denies dizziness/lightheadedness, numbness/tingling, weakness Skin: Denies rash, itch Physical Exam Physical Exam: PHYSICAL EXAM General Appearance: WDWN in NAD who is A&O x 3 HEENT: Head is normocephalic/atraumatic; EOMI; PERRLA; Hearing grossly intact Neck: Supple; Trachea midline; Neg JVD Heart: RRR with no M/G/R Lungs: CTA in all lung mccauley bilaterally; Respirations unlabored; Neg accessory muscle use Abdomen: Soft, non-tender, non-distended; Positive BS x 4 quadrants Extremities: R knee with immobilizer which was not removed; Movement and sensation intact to b/l feet/ankles/lower legs Neurological: Speech clear; Gross motor/sensory function intact; Neg focal neurologic deficits Psychiatric: Appropriate mood/affect Skin: Normal Color; Warm/Dry Results & Data Results & Data ([facility]) Vital Signs (Past 12 Hours) Vital Signs Temp Pulse Resp BP Pulse Ox 06/28/21 06:57 36.7 C 73 20 140/72 96 06/27/21 22:50 37.2 C 77 18 147/68 H 93 PG Care Time/CCT Total # of Minutes Spent Total Time Spent with Patient: Total time spent is greater than 50% in coordination of care (as documented) at patient's floor/unit and/or counseling patient: Coding Level of Care Code 44799 Inpt Consult Level 2 Diagnoses Patellar fracture S82.001A Encounter type: initial encounter Fracture alignment: displaced Fracture morphology: unspecified fracture morphology Fracture type: closed Laterality: right COPD (chronic obstructive pulmonary disease) J44.9 CKD (chronic kidney disease) stage 3, GFR 30-59 ml/min N18.3 HLD (hyperlipidemia) E78.5 DM type 2 (diabetes mellitus, type 2) E11.9 CAD (coronary artery disease) I25.10 Chronic diastolic CHF (congestive heart failure) I50.32 HTN (hypertension) I10 Hypothyroidism E03.9 (1) Patellar fracture Encounter type: initial encounter Fracture alignment: displaced Fracture morphology: unspecified fracture morphology Fracture type: closed Laterality: right Qualified Code(s): S82.001A - Unspecified fracture of right patella, initial encounter for closed fracture
[2021-06-28] MEDS: DICLOFENAC SOD 1% GEL 100 GM TUBE EXT SCH ×2 (13:35→20:50)
[2021-06-28] MEDS: MONTELUKAST SODIUM 10 MG TABLET PO SCH (20:56)
[2021-06-28] MEDS: ROSUVASTATIN CALCIUM 20 MG TAB PO SCH (20:57)
[2021-06-28] MEDS: SENNA 8.6 MG TAB PO SCH (20:57)
[2021-06-28] MEDS: METOPROLOL TARTRATE 25 MG TAB PO SCH (21:01)
[2021-06-29] MEDS: oxyCODONE HCL IR 5 MG TAB (IMMEDIATE RELEASE) PO PRN ×3 (01:45→15:00)
[2021-06-29] MEDS: ACETAMINOPHEN 500 MG TAB PO SCH ×2 (05:49→13:41)
[2021-06-29] MEDS: LEVOTHYROXINE SODIUM 100 MCG TABLET PO SCH (05:49)
[2021-06-29 06:08] LABS: Hematocrit (blood only) 35.1 % (37-47); Hemoglobin 10.8 g/dL (12.0-16.0); Mean Corpuscular Hemoglobin 25.7 pg (25-34); Mean Corpuscular Hgb Conc 30.8 g/dL (32-36); Mean Corpuscular Volume 83.6 fL (80-100); Mean Platelet Volume 9.2 fL (7.4-10.4); Platelet Count 309 K/uL (130-400); RDW Coefficient of Variation 16.5 % (11.5-14.5); RDW Standard Deviation 51.1 fL (36.4-46.3); White Blood Count 7.16 K/uL (4.8-10.8)
[2021-06-29 06:40] LABS: BUN Creatinine Ratio 29.1 (10-20); Calcium 8.8 mg/dl (8.5-10.1); Creatinine Clr Calc Pharmacy 48.4 ml/min; Est GFR (African American) 66.5 ml/min; Est GFR (Non-African American) 57.4 ml/min; Potassium 3.8 mmol/L (3.5-5.1)
[2021-06-29] MEDS: PANTOprazole 40 MG TAB PO SCH (08:52)
[2021-06-29] MEDS: METOPROLOL TARTRATE 50 MG TAB PO SCH (08:52)
[2021-06-29] MEDS: DOCUSATE SODIUM 100 MG CAP PO SCH (08:53)
[2021-06-29] MEDS: lisinopril 40 MG TAB PO SCH (08:53)
[2021-06-29] MEDS: ASPIRIN 81 MG ECTAB PO SCH (08:53)
[2021-06-29] MEDS: FUROSEMIDE 80 MG TAB PO SCH (08:53)
[2021-06-29] MEDS: LORATADINE 10 MG TAB PO SCH (08:54)
[2021-06-29] MEDS: SPIRONOLACTONE 25 MG TAB PO SCH (08:54)
[2021-06-29] MEDS: MULTIVITAMIN TAB PO SCH (08:54)
[2021-06-29] MEDS: DICLOFENAC SOD 1% GEL 100 GM TUBE EXT SCH (08:55)
[2021-06-29] MEDS: ISOSORBIDE MONO EXTENDED REL 30 MG TABCR PO SCH (08:55)
[2021-06-29] MEDS: INSULIN ASPART 100 UNITS/ML 3 ML PEN SC SCH ×3 (08:59→16:57)
[2021-06-29] MEDS ORDERED: INSULIN DETEMIR SC SCH (09:00)
[2021-06-29] MEDS: PREGABALIN 100 MG CAP PO SCH ×2 (09:05→13:44)
[2021-06-29] MEDS ORDERED: KETOROLAC TROMETHAMINE 15 MG/ML VIAL IV ONE (10:58)
--- NOTE | 2021-06-29 11:04 | Orthopedic Progress Note ---
Date of Service June 29, 2021 Assessment & Plan (1) Patellar fracture: Plan: Postop day 3 status post ORIF right patellar fracture. New left ankle pain-we will check an x-ray this morning. This may likely be secondary to her history of arthritis. No history of gout. No injury to speak of. I have spoken to Lizet Pressley PA-C, and we will give her a one-time dose of Toradol 15 mg IV. Review x-ray when done. PT/OT protocols. Weightbearing as tolerated with immobilizer on at all times. DVT prophylaxis-we will start aspirin p.o. twice daily. SCD on lower extremities. Pain management currently as written. Patient has history of chronic pain issues of which she was taking 10 mg of Percocet every 6 hours at home. If her pain management is not controlled, we will consider having pain management team see her for further recommendations. I talked to the patient about sending her home on her original pain medication but shortening the timing of the dosing. She seemed amenable to this. DC planning-[facility]. Unless ankle x-rays are showing something that would require an inpatient stay, plan for discharge today to [facility]. Admission and Anticipated Discharge Date Admission Date: June 26, 2021 Supervising Physician Co-Signing Physician Notes Patient seen and examined. Agree with AUNDREA Hawthorne's note as above. Right knee is doing well with minimal pain. She has been ambulating. Her left ankle is most bothersome thing today; she had a lot of pain this morning, but it has subsided. X-rays are largely unremarkable. No acute fractures, but she does have some underlying arthritis. Subjective Postop day 3 Patient sitting in her chair at the bedside. No overt complaints of the right knee this morning. More complaints of the left ankle hurting this morning. States that she noticed increased pain with range of motion today. She feels that her arthritis flaring up. Denies shortness of breath, chest pain, lightheadedness. We discussed that she had been approved for going to [facility] nursing [facility] which she is in agreement. Physical Exam Physical Exam: Right knee incision is clean, dry, and intact. No drainage. Mild bruising noted. Calf is soft and nontender. Neurovascular is intact. Toes are mobile. Left ankle appears benign at this time. It has some mild warmth to it compared to the right. No erythema. No swelling. She is able to take it through active range of motion with dorsiflexion and plantarflexion which causes her some mild to moderate pain. Capillary refill is less than 2 seconds. Results & Data ([facility]) Vital Signs (Past 12 Hours) Vital Signs Temp Pulse Resp BP Pulse Ox 06/29/21 07:49 36.7 C 70 16 180/71 H 97 (1) Patellar fracture Encounter type: initial encounter Fracture alignment: displaced Fracture morphology: unspecified fracture morphology Fracture type: closed Laterality: right Qualified Code(s): S82.001A - Unspecified fracture of right patella, initial encounter for closed fracture
--- NOTE | 2021-06-29 11:52 | XRay Report ---
XR ankle LT min 3V routine CLINICAL HISTORY: pain left ankle COMPARISON STUDY: None. FINDINGS: Mild soft tissue swelling within the left ankle. Old avulsion injury at the medial malleolu s. No acute fracture or dislocation within the left ankle. There is a large posterior calcaneal spur. Mild osteoarthritis at the tibiotalar joint. IMPRESSION: 1. Mild soft tissue swelling within the left ankle. No acute fractures. 2. Mild osteoarthritis. ACT 112: Negative or not required by law. Electronically signed by: August Rasheed M.D. 06/29/2021 11:50 AM
--- NOTE | 2021-06-29 13:37 | Hospitalist Progress Note ---
Date of Service June 29, 2021 Assessment & Plan (1) Patellar fracture: Plan: - S/P ORIF of patella on 26 June 2021; doing well-postoperatively; chronic pain issues which makes regimens more difficult - Pain management and bowel regimen ordered; surgical management per primary team - No longer having abdominal pain; Having pain in the L medial aspect of ankle without erythema or edema -- Likely inflammatory arthritis; Uric Acid only slightly out of range and no history of gout; renal clearance is sufficient to do Toradol x 1 dose - DVT prophylaxis - ASA 81 mg BID - WBAT - PT/OT following (2) COPD (chronic obstructive pulmonary disease): Plan: - No acute exacerbation at this time - Abulterol PRN; Montelukast 10 mg daily (3) CKD (chronic kidney disease) stage 3, GFR 30-59 ml/min: Plan: - STABLE - Avoid nephrotoxins when able (4) HLD (hyperlipidemia): Plan: - Continue Rosuvastatin 20 mg daily (5) DM type 2 (diabetes mellitus, type 2): Plan: - A1c 8.2 - Appreciate glycemic management; plan to resume home regimen on D/C (6) CAD (coronary artery disease): Plan: - Reports no current CP - Continue Isosorbide mononitrate 30 mg AM; ASA; Statin (7) Chronic diastolic CHF (congestive heart failure): Plan: - No acute decompensation at this time - Continue Lasix 80 mg daily and Spironolactone 25 mg daily - Monitor labs routinely (8) HTN (hypertension): Plan: - Elevated but improved from yesterday; diastolic has been acceptable so maybe a component of pain response - Continue Metoprolol 50 mg AM and 25 mg PM; Lisinopril 40 mg daily; (9) Hypothyroidism: Plan: - Continue Levothyroxine 100 mcg daily Plan: - Medically stable at this time and suitable for D/C and continue home meds; awaiting transport to rehab Admission and Anticipated Discharge Date Admission Date: June 26, 2021 Subjective Pt reports developing L ankle pain which hurts more than her knee at this point. Medial ankle is slightly warm to touch but not red. No pain into the calf. Seems to be tender over the bony prominence. No history of gout. Tolerating a diet today. No further abdominal pain. Review of Systems Review of Systems: REVIEW OF SYSTEMS General/Constitutional: Denies fever/chills Cardiovascular: Denies chest pain, palpitations, edema Respiratory: Denies cough, sputum, SOB, wheezing GI: Denies abdominal pain, nausea, vomiting, constipation, diarrhea : Denies dysuria Musculoskeletal: + knee pain; + L medial ankle pain Neurologic: Denies dizziness/lightheadedness, numbness/tingling, weakness Skin: Denies rash, itch Physical Exam Physical Exam: PHYSICAL EXAM General Appearance: WDWN in NAD who is A&O x 3 HEENT: Head is normocephalic/atraumatic; Hearing grossly intact Neck: Supple; Trachea midline; Neg JVD Heart: RRR with no M/G/R Lungs: CTA in all lung mccauley bilaterally; Respirations unlabored; Neg accessory muscle use Abdomen: Soft, non-tender, non-distended; Positive BS x 4 quadrants Extremities: R knee with immobilizer which was not removed; Movement and sensation intact to R ankle/feet; L medial malleolus with mild warmth to touch, no edema, no erythema; painful to palp over the bony prominence with limited ROM due to discomfort predominantly with plantarflexion and inversion Neurological: Speech clear; Gross motor/sensory function intact; Neg focal neurologic deficits Psychiatric: Appropriate mood/affect Skin: Normal Color; Warm/Dry Results & Data Results & Data ([facility]) Vital Signs (Past 12 Hours) Vital Signs Temp Pulse Resp BP Pulse Ox 06/29/21 07:49 36.7 C 70 16 180/71 H 97 PG Care Time/CCT Total # of Minutes Spent Total Time Spent with Patient: Total time spent is greater than 50% in coordination of care (as documented) at patient's floor/unit and/or counseling patient: Coding Level of Care Code 13374 Inpt Consult Level 2 Diagnoses Patellar fracture S82.001A Encounter type: initial encounter Fracture alignment: displaced Fracture morphology: unspecified fracture morphology Fracture type: closed Laterality: right COPD (chronic obstructive pulmonary disease) J44.9 CKD (chronic kidney disease) stage 3, GFR 30-59 ml/min N18.3 HLD (hyperlipidemia) E78.5 DM type 2 (diabetes mellitus, type 2) E11.9 CAD (coronary artery disease) I25.10 Chronic diastolic CHF (congestive heart failure) I50.32 HTN (hypertension) I10 Hypothyroidism E03.9 (1) Patellar fracture Encounter type: initial encounter Fracture alignment: displaced Fracture morphology: unspecified fracture morphology Fracture type: closed Laterality: right Qualified Code(s): S82.001A - Unspecified fracture of right patella, initial encounter for closed fracture
--- NOTE | 2021-07-04 15:43 | Discharge Summary ---
Date of Service July 04, 2021 Admission HPI Per Admitting Provider Patient is a 76-year-old female who presented to the ER following mechanical fall onto her right knee, she is s/p right TKA in February [address] morgan. She notes that she saw her PCP and had x-rays done as an outpatient. She was found to have a fractured patella and was sent into the ER. she was placed into knee immobilizer and referred to us for definitive treatment. her xrays and CT confirm a displaced patella fracture and stable total knee replacement. Admission Exam Per Admitting Provider Physical Exam: HT: 4ft 11in WT: 83.915kg Constitutional: WD/WN, vitals as above no acute distress Respiratory: normal respiratory effort, lungs clear to auscultation no respiratory distress, no labored breathing and does not use accessory muscles Cardiovascular: RRR, no murmur, no edema Gastrointestinal (Abdomen): normal bowel sounds, soft, nontender, no hepatosplenomegaly Musculoskeletal: Knee: + knee abnormal to inspection (moderate ecchymosis and +2 effusion), + effusion, + ecchymosis, + surgical incision (well healed mid line incision) and + limited ROM of knee; no skin erythema, no valgus alignment, no varus alignment, no valgus laxity and no varus laxity Principal Diagnosis Right patella fracture Discharge Data Allergies Allergy/AdvReac Type Severity Reaction Status Date / Time carvedilol AdvReac Mild Heart Verified 06/26/21 05:29 racing Consultations 06/26/21 12:55 Consult Hospitalist Routine Procedures Performed Operation Date: 06/26/21 07:00 Actual Procedures p Right Knee Open Reduction Internal Fixation Patella with Tension Band(Right) - Kamran Morgan DO Ordered Studies 06/26/21 05:00 US - OR guided needle placemen Routine 06/26/21 07:00 FL knee RT 1 or 2V Routine Hospital Course (1) Patellar fracture: Patient was admitted on the above-noted date and had the above-noted surgery performed which she tolerated well. Postoperatively, she was planning for discharge to home as outpatient however with pain control issues, the patient was then admitted. On her first postoperative day, she was sitting at the bedside eating breakfast with her immobilizer on. She was having some pain but appeared to be controlled. Patient was wanting to return home however it was discussed that if she was not progressing well through physical therapy, she may need to go to a rehab facility before returning home. Dressings were dry and intact. Immobilizer in place. She was moving her toes well. Neurovascular appears intact. She was started on her PT and OT protocols weightbearing as tolerated with immobilizer on at all times. DVT prophylaxis with aspirin p.o. twice daily. By her second postoperative day, she was resting in bed and pain was controlled. Dressing remained intact. Toes were mobile. Vital signs were stable. Physical therapy was recommending rehab placement. Patient was agreeable. Case management was placing authorizations. By her third postoperative day, she had no complaints with her right knee. She was complaining of left ankle pain that morning. Patient felt it was possibly her arthritis flaring up. X-rays of the left ankle were obtained and were essentially unremarkable. No fractures noted and some arthritis was noted. Her right knee incision was benign. Mild bruising noted. Calves were soft and nontender. Neurovascular was intact. Toes were mobile. Left ankle appears benign at that time and had some mild warmth to it compared to the right. No erythema no swelling. She was able to take it through active range of motion with dorsiflexion and plantarflexion which caused her some mild to moderate pain. She was ordered a dose of Toradol 15 mg IV 1 time. [facility] She was seen later in the day by the rounding physician and at that time a lot of her left ankle pain had subsided. She was remaining stable medically as well as orthopedically and was felt she be transferred to [facility] for further care. Total Time Total Time Spent Total Time Spent (In Minutes): 10 Discharge Plan Discharge Items Patient Disposition: Transfer [facility] Reason For Visit: Right Knee Patella Fracture Discharge Diagnosis: Right patella fracture Activity: Per Instructions section Lifting: Wait until after follow-up appointment Weightbearing Comment: As tolerated with immobilizer on at all times. Non-emergency contact: Surgeon Call non-emergency contact if: your pain is not controlled, your temperature is above 101.5, your wound has increased redness and your wound has increased drainage Follow-up/Referrals: Kamran Morgan, [Surgeon] - Diet: Carb Consistent or DM2 Addtl Attending Provider Instructions: You are allowed to be weightbearing as tolerated on the right leg with the immobilizer on at all times. Absolutely no range of motion of the right knee at this time. You may remove the immobilizer for dressing changes, bathing, and changing clothes. You should change your dressing on June 28, 2021. Continue to keep a dressing over the incision until you see Dr. Morgan back in the office. You can use a smaller Pierre wrap to keep the dressing on secure. You can shower in 72 hours from the day of surgery. No tub baths, do not soak the wound, no direct shower pressure to the wound. Clean around the wound with a mild soap and rinse clean. Pat dry and replace with a new dressing. Please call the office if you have a fever of 101.5, increased pain, increased swelling, increased redness or drainage. Follow-up with Dr. Morgan or his PA Lawrence Leigh in 12 to 14 days from the date of surgery. Please call for appointment. [phone] Pending Studies at Discharge: No Stand-Alone Forms: [facility] Skilled Items Patient informed of condition?: Yes DNR: No Discharge Level of Care: Acute rehab Communicable Disease: No Discharge Prognosis: Stable Lines: None Urinary Catheter: No Medications and DC Order Prescriptions: New oxycodone-acetaminophen [Percocet] 10-325 mg tablet 1 tab PO Q4H MDD 6 tabs PRN (Reason: pain) Qty: 18 RF: 0 Continued (DME) lancets [Accu-Chek Softclix Lancets] Misc See Rx Instructions .ROUTE .MEDSUPPLY Qty: 100 RF: 0 loratadine 10 mg tablet 10 mg PO QAM Qty: 90 RF: 1 levothyroxine 100 mcg tablet 100 mcg PO QAM Qty: 90 RF: 1 rosuvastatin 20 mg tablet 20 mg PO HS Qty: 90 RF: 1 (DME) OneTouch Verio test strips Strip See Rx Instructions .ROUTE .MEDSUPPLY Qty: 200 RF: 5 insulin aspart U-100 [Novolog U-100 Insulin aspart] 100 unit/mL solution See Rx Instructions .ROUTE .COMPLEX Qty: 10 RF: 5 isosorbide mononitrate 30 mg tablet extended release 24 hr 30 mg PO QAM Qty: 90 RF: 1 albuterol sulfate 90 mcg/actuation HFA aerosol inhaler 2 puff inhalation Q4H PRN (Reason: Cough/SOB/Wheezing) Qty: 18 RF: 2 Bydureon BCise 2 mg/0.85 mL auto-injector 2 mg subcut Q7D Qty: 3.4 RF: 2 furosemide 80 mg tablet 80 mg PO QAM Qty: 90 RF: 1 Levemir U-100 Insulin 100 unit/mL solution 30 unit SUBCUT BID Qty: 10 RF: 1 pantoprazole [Protonix] 40 mg tablet,delayed release (DR/EC) 40 mg PO QAM RF: 0 metoprolol tartrate 50 mg tablet 50 mg PO QAM RF: 0 metoprolol tartrate 50 mg tablet 25 mg PO QPM RF: 0 montelukast 10 mg tablet 10 mg PO HS RF: 0 fluticasone propionate 50 mcg/actuation spray,suspension 1 spray INTRANASAL DAILY PRN (Reason: Allergy Symptoms) RF: 0 spironolactone [Aldactone] 25 mg tablet 25 mg PO QAM RF: 0 clotrimazole-betamethasone 1-0.05 % cream 1 applic topical BID PRN (Reason: Rash) RF: 0 pregabalin [Lyrica] 200 mg capsule 200 mg PO TID RF: 0 lisinopril 40 mg tablet 40 mg PO QAM RF: 0 Stool Softener 50 mg Capsule 100 mg PO HS RF: 0 Discontinued oxycodone-acetaminophen 10-325 mg tablet 1 tab PO Q6H PRN (Reason: pain) Qty: 90 RF: 0 No Action diclofenac sodium 1 % gel 2 g topical BID Qty: 100 RF: 2 Discharge Orders: Discharge Order (Routine); Ordered 06/28/21 Ordered By: Lawrence Leigh Admission Data Admit Date/Time: 06/26/21 11:32 Attending Provider: Kamran Morgan Admit Provider: Kamran Morgan Primary Care Provider: Joan Blackmon Other Providers: Catrachito Andrew ; Jesse Caceres [facility] ; [facility] ; [place] ; Apollo Gunter. Other Interventions: Discharge Summary Assessment (RN) Last Done: 06/29/21 17:17
== END 2021-06-29 18:20 ==
LOC: ASU 05:04 → 3E 11:32 → INTOOBSV 11:32

== ENCOUNTER 2022-03-14 18:29 | Observation (INO) ==
--- NOTE | 2022-03-14 19:31 | XRay Report ---
SINGLE VIEW CHEST CLINICAL HISTORY: Change in mental status. FINDINGS: An AP, portable, upright chest radiograph is obtained. No prior studies are available for c omparison at the time of dictation. The examination is degraded by portable technique and apical lord otic positioning. The heart is enlarged noting atherosclerotic calcification of the thoracic aorta. T here is pulmonary vascular congestion. Bilateral airspace opacities likely represent interstitial laura ma. No large pleural effusion or pneumothorax is seen. The skeletal structures are osteopenic. There are numerous healed right-sided rib fracture. Fusion hardware is noted in the lower cervical spine. A dvanced arthritic change is seen in the shoulders. IMPRESSION: 1. Cardiomegaly with evidence of congestive failure. 2. Bilateral airspace opacities likely represent pulmonary edema. Clinical correlation will be requir ed. ACT 112: Negative or not required by law. Electronically signed by: Mello Glasgow M.D. 03/14/2022 7:30 PM
--- NOTE | 2022-03-14 19:31 | Emergency Department Note ---
History of Present Illness General Chief complaint: Altered Mental Status Stated complaint: AMS Time Seen by Provider: 03/14/22 18:45 Source: patient and RN notes reviewed History of Present Illness Provider complaint: Altered mental status Onset (ago): week(s) Associated symptoms: no chest pain, no cough, no fever/chills, no headaches, no malaise, no nausea/vomiting, no shortness of breath or no weakness 76-year-old female presents emergency department for altered mental status. Patient reports that over the last few weeks she has been increasingly tired and felt more confused. Patient denies any headache or falls. Patient has any chest pain difficulty breathing. She denies any abdominal pain nausea vomiting or diarrhea. No hematuria dysuria. No fevers. Patient reports she has been having trouble remembering what day it is and how to write a check. Nursing staff reports that the daughter called the patient after she spoke with her and folic she was confused. They are talking about a holiday that is upcoming and the daughter became concerned because there is no holiday upcoming but the patient states she was referring to her birthday which is tomorrow. Home Medications Medication Instructions Recorded Confirmed Type fluticasone propionate 50 1 spray INTRANASAL DAILY PRN 12/01/19 02/13/22 History mcg/actuation nasal spray,suspension lancets (Accu-Chek Softclix #100 ea 11/02/20 02/13/22 Rx Lancets) blood sugar diagnostic (OneTouch #200 ea 05/02/21 02/13/22 Rx Verio test strips) furosemide 80 mg tablet 80 mg PO QAM #90 tab 06/07/21 02/13/22 Rx diclofenac sodium 1 % topical gel 2 g TOPICAL BID #100 g 06/28/21 02/13/22 Rx aspirin 81 mg tablet,delayed 81 mg PO QAM 08/01/21 02/13/22 History release (Adult Low Dose Aspirin) pantoprazole 40 mg tablet,delayed 40 mg PO QAM #90 tab 10/19/21 02/13/22 Rx release (Protonix) pregabalin 200 mg capsule (Lyrica) 200 mg PO TID #90 cap 10/19/21 02/13/22 Rx isosorbide mononitrate 30 mg 30 mg PO QAM #90 tab 11/28/21 02/13/22 Rx tablet,extended release 24 hr loratadine 10 mg tablet 10 mg PO HS 11/30/21 02/13/22 History albuterol sulfate 90 mcg/actuation 2 puff INHALATION Q4H PRN #18 g 12/14/21 02/13/22 Rx aerosol inhaler metoprolol tartrate 25 mg tablet 25 mg PO QPM 12/15/21 02/13/22 History metoprolol tartrate 50 mg tablet 50 mg PO QAM 12/15/21 02/13/22 History oxybutynin chloride 5 mg 5 mg PO DAILY #30 tab 12/19/21 02/13/22 Rx tablet,extended release 24 hr montelukast 10 mg tablet 10 mg PO HS #90 tab 01/02/22 02/13/22 Rx levothyroxine 100 mcg tablet 100 mcg PO QAM #90 tab 01/23/22 02/13/22 Rx rosuvastatin 20 mg tablet 20 mg PO HS #90 tab 01/23/22 02/13/22 Rx famotidine 20 mg tablet 20 mg PO .in evening #90 tab 02/05/22 02/13/22 Rx insulin detemir U-100 100 unit/mL 12 unit SUBCUT DAILY ml 02/05/22 03/06/22 History subcutaneous solution (Levemir U-100 Insulin) lisinopril 40 mg tablet 40 mg PO QAM #90 tab 02/06/22 02/13/22 Rx spironolactone 25 mg tablet 25 mg PO QAM #90 tab 02/08/22 02/13/22 Rx (Aldactone) oxycodone-acetaminophen 10 mg-325 1 tab PO Q6H PRN #120 tab 02/19/22 Rx mg tablet (Percocet) insulin aspart U-100 100 unit/mL 2 unit SUBCUT TID #1 box MDD 16 03/06/22 03/06/22 Rx (3 mL) subcutaneous pen (Novolog Flexpen U-100 Insulin aspart) insulin detemir U-100 100 unit/mL 8 unit SUBCUT QPM #1 box MDD 16 03/06/22 03/06/22 Rx (3 mL) subcutaneous pen (Levemir FlexTouch U-100 Insulin) pen needle, diabetic 32 gauge x #400 ea 03/06/22 03/06/22 Rx 32" (BD Ultra-Fine Kim Pen Needle) exenatide microspheres 2 mg/0.85 2 mg SUBCUT Q7D #3.4 ml 03/12/22 Rx mL subcutaneous auto-injector (Bydureon BCise) albuterol sulfate 90 mcg/actuation 2 puff INHALATION Q4 PRN 03/14/22 03/14/22 History aerosol inhaler exenatide microspheres 2 mg/0.85 2 mg SUBCUT .EVERY 7 DAYS 03/14/22 03/14/22 History mL subcutaneous auto-injector (Bydureon BCise) famotidine 20 mg tablet 20 mg PO QPM 03/14/22 03/14/22 History insulin aspart U-100 100 unit/mL 2 unit SUBCUT TID MDD 16 03/14/22 03/14/22 History (3 mL) subcutaneous pen (Novolog Flexpen U-100 Insulin aspart) insulin detemir U-100 100 unit/mL 8 unit SUBCUT QPM MDD 16 03/14/22 03/14/22 History (3 mL) subcutaneous pen (Levemir FlexTouch U-100 Insulin) isosorbide mononitrate 30 mg 30 mg PO QAM 03/14/22 03/14/22 History tablet,extended release 24 hr levothyroxine 100 mcg tablet 100 mcg PO DAILYBB 03/14/22 03/14/22 History lisinopril 40 mg tablet 40 mg PO QAM 03/14/22 03/14/22 History metoprolol tartrate 50 mg tablet See Rx Instructions .ROUTE .COMPLEX 03/14/22 03/14/22 History montelukast 10 mg tablet 10 mg PO HS 03/14/22 03/14/22 History oxycodone-acetaminophen 10 mg-325 1 tab PO Q6 PRN 03/14/22 03/14/22 History mg tablet pantoprazole 40 mg tablet,delayed 40 mg PO QAM 03/14/22 03/14/22 History release pregabalin 200 mg capsule 200 mg PO TID 03/14/22 03/14/22 History rosuvastatin 20 mg tablet 20 mg PO HS 03/14/22 03/14/22 History spironolactone 25 mg tablet 25 mg PO QAM 03/14/22 03/14/22 History Allergies Allergy/AdvReac Type Severity Reaction Status Date / Time carvedilol AdvReac Mild Heart Verified 03/14/22 20:09 racing Past Med/Surg History Medical History (Updated 03/15/22 @ 01:00 by Ethan Og) Aspiration pneumonitis see hospitalization records from 12/01/2019. "concern for aspiration", 12/02/2019, "no evidence of aspiration." CAD (coronary artery disease) Mild, non obstructive disease per 2012 cardiac cath Cervical post-laminectomy syndrome Chronic diastolic CHF (congestive heart failure) follows with Dr. DANK VEGA with [facility] Chronic pain CKD (chronic kidney disease) stage 3, GFR 30-59 ml/min Under surveillance by PCP COPD (chronic obstructive pulmonary disease) chronic ROQUE Degenerative joint disease (DJD) of hip Depression controlled without meds DM type 2 (diabetes mellitus, type 2) IDDM GERD (gastroesophageal reflux disease) Diet related, controlled and stable per pt HLD (hyperlipidemia) HLD (hyperlipidemia) HTN (hypertension) controlled, stable per pt HTN (hypertension) Hypothyroidism Lumbar disc herniation with radiculopathy Lumbar post-laminectomy syndrome Moderate mitral regurgitation Myocardial Infarction Told "silent heart attack" several years ago No pertinent family history Obesity Obstructive lung disease MONROE (obstructive sleep apnea) Cannot tolerate device PUD (peptic ulcer disease) follows with GI Pulmonary hypertension per cardio records Rheumatoid arthritis Temporomandibular joint disorder + clicking, no locking Surgical History (Updated 03/14/22 @ 20:09 by Tristen Mcclelland) H/O cataract extraction bilat H/O excision of lamina of cervical vertebra for decompression of spinal cord [address] Carreno History of back surgery lumbar fusion L3-L4 decompression/fusion (06/09/20): Grade view 1, MAC#3, ETT 7 at [facility] > ROM side to side limited per pt History of breast biopsy right History of cardiac cath (08/2013) 2013 - mild, non obstructive disease > no stents History of colonoscopy History of esophagogastroduodenoscopy (EGD) (~2014) with Dr. Rowan History of foot surgery right > toe overlap correction History of gastrointestinal procedure (~2015) EUS History of hysterectomy History of tonsillectomy and adenoidectomy History of total right knee replacement (02/2021) SAB at L3-L4 3 attempts. Anesthesia postop progress note: patient started complaining of left shoulder pain radiating to her left breast. She does have a history of left shoulder pain however she states it usually goes down her arm and not into her chest. Her pain does not appear cardiogenic in nature as it is characterized as sharp and is reproducible by palpating her chest. She denies nausea and shortness of breath. An ECG was done and did not show any ischemic changes. A troponin was drawn. Dr. Arias will follow up on the troponin results and update the medicine team who will be following the patient on the floor. Initial troponin negative. Patient ok to go to telemetry for further management. Hx of blepharoplasty bilat No pertinent past surgical history S/P epidural steroid injection S/P ORIF (open reduction internal fixation) fracture (06/26/21) R patellar fracture. Glidescope#3, ETT#7.5 + PNB. Anesthesia postop progress note: pain being managed with dilaudid, fentanyl, nerve block, and percocet. Despite this she continues to rate pain at a 9/10. We have also been unable to wean patient off of oxygen due to being somnolent from narcotics. Pt also states that she will be home alone tonight, but that a friend can check in on her. At this point we will reach out to the primary team and enquire about a possible overnight admission for pain management and oxygen. Family History Grandmother (Maternal) Family history of diabetes mellitus Grandfather (Maternal) Family history of diabetes mellitus Mother Family history of diabetes mellitus Son Family history of diabetes mellitus Other Heart disease No family history of adverse response to anesthesia Stroke Denies family history of Ovarian cancer Prostate cancer Myocardial infarction Breast cancer Colorectal cancer Social History (System 03/14/22 @ 20:09 by Tristen Mcclelland) Smoking Status: Never smoker Second Hand Exposure: Yes (FAMILY SMOKED); Hx Alcohol Use: No Hx Substance Use: No Preferred Language: Yoruba Communication Ability: Effective Visual Impairment: No Limitations Hearing Ability: Use of Hearing Aid Bronc Breaker Required: Video and No Beliefs That Will Affect Care: None marital status: Current Living Situation: Alone Current Living Situation Comment: receives home health 2X A WEEK current occupational status: retired How many Children do You have: 3 Feels Safe at Home: Yes Childhood Exposure to Second-Hand Smoke: Yes Diet Comment: does not follow a diet caffeine: No during the past year weight has: remained stable Dental Care, Regularly: No Physical Activity Frequency: Other Seatbelt Use: always Sunscreen Use: Yes Assistive Devices: Cane, Denture - Upper, Denture - Lower, Glasses and Hearing Aid - Bilateral Review of Systems A total of 10 systems reviewed and were otherwise negative Physical Exam Vital Signs Vital Signs - 24 hr 03/14/22 18:34 03/14/22 19:01 03/14/22 19:02 Temperature 37.2 C Temperature Source Oral Pulse Rate 93 H Pulse Rate [Apical] Pulse Rhythm [Apical] Respiratory Rate 19 Respiratory Effort / Characteristics Non-Labored Spontaneous Respiratory Depth Normal Blood Pressure 161/55 H Blood Pressure [Left Arm] Blood Pressure Mean 90 Blood Pressure Mean [Left Arm] Pulse Oximetry 93 92 92 Oxygen Delivery Method Room Air Room Air Sepsis Recent Fever Within 48 Hours No Sepsis New/Unexplained Change in Mental Status N/A Sepsis Action Taken by Nursing No Action Required 03/14/22 19:52 03/14/22 20:14 03/14/22 20:58 Temperature Temperature Source Pulse Rate Pulse Rate [Apical] 91 H 89 88 Pulse Rhythm [Apical] Regular Respiratory Rate 16 18 14 Respiratory Effort / Characteristics Non-Labored Spontaneous Non-Labored Non-Labored Respiratory Depth Normal Normal Normal Blood Pressure Blood Pressure [Left Arm] 103/64 103/64 123/50 L Blood Pressure Mean Blood Pressure Mean [Left Arm] 77 77 74 Pulse Oximetry 94 92 96 Oxygen Delivery Method Room Air Room Air Room Air Sepsis Recent Fever Within 48 Hours Sepsis New/Unexplained Change in Mental Status Sepsis Action Taken by Nursing 03/14/22 23:39 03/15/22 00:38 Temperature Temperature Source Pulse Rate Pulse Rate [Apical] 85 82 Pulse Rhythm [Apical] Respiratory Rate 18 20 Respiratory Effort / Characteristics Non-Labored Spontaneous Respiratory Depth Normal Blood Pressure Blood Pressure [Left Arm] 87/52 L 132/74 Blood Pressure Mean Blood Pressure Mean [Left Arm] 63 93 Pulse Oximetry 94 92 Oxygen Delivery Method Room Air Sepsis Recent Fever Within 48 Hours Sepsis New/Unexplained Change in Mental Status Sepsis Action Taken by Nursing Physical Exam GENERAL: She is oriented to person, place, and time. She appears well-developed and well-nourished. She does not appear distressed. HENT: Exam performed. -Head: Normocephalic and atraumatic. -Right Ear: External ear normal. No mastoid tenderness. -Left Ear: External ear normal. No mastoid tenderness. -Mouth/Throat: The oropharynx is clear and moist. No trismus in the jaw. No dental abscesses or uvula swelling. No oropharyngeal exudate or tonsillar abscesses. EYES: Conjunctivae and EOM are normal. Pupils are equal, round, and reactive to light. Right eye exhibits no discharge. Left eye exhibits no discharge. No scleral icterus. NECK: Normal range of motion. Neck supple. No JVD present. No spinous process tenderness present. No carotid bruit present. No rigidity. No tracheal deviation and normal range of motion present. No Brudzinski's sign and no Kernig's sign noted. CV: Normal rate, regular rhythm, normal heart sounds and intact distal pulses. There is no peripheral edema. Palpable radial pulses bue. PULM/CHEST: Effort normal and breath sounds normal. No respiratory distress. No stridor. She has no wheezes. She has no rales. -Chest Wall: She exhibits no tenderness. ABD: The abdomen is soft. Bowel sounds are normal. She has no distension. No mass is present. There is no tenderness. There is no rebound, no guarding, no Cristobal's sign and no tenderness at McBurney's point. Rovsig negative MUSC/SKEL: Normal range of motion. There is no peripheral edema, tenderness or deformity. LYMPH: No cervical adenopathy. NEURO: She is alert and oriented to person, place, and time. She has normal strength. No cranial nerve deficit or sensory deficit. Coordination and gait normal. GCS eye subscore is 4. GCS verbal subscore is 5. GCS motor subscore is 6. Cerebellar tests wnl. SKIN: Skin is warm and dry. She is not diaphoretic. PSYCH: She has a normal mood and affect. Behavior is normal. Judgment and thought content normal. Course Course 1844: The patient was evaluated in room C10. A complete history and physical exam was performed Cardiac monitoring: An order was placed for continuous cardiac monitoring. The monitor shows a rate of 90 with sinus rhythm 2144: Vital signs stable. Labs show leukocytosis of 12.7. Labs show creatinine of 1.65. Urinalysis is concerning for infection. We will treat the patient with Rocephin [address] of the head within normal limits. Will contact CT of the abdomen to rule out kidney stone. Chest x-ray shows mild edema. 0000: Vital signs stable. CT of the abdomen does not show kidney stone but does show pyelonephritis. Patient will be admitted to the [facility] team Dr. Preston notified. Administered Medications Sodium Chloride (Nss 1000ml) 500 mls @ 999 mls/hr IV .Q31M ONE Stop: 03/15/22 00:58 Last Admin: 03/15/22 00:37 Dose: 999 mls/hr Documented by: [id number] Discontinued Medications Ceftriaxone Sodium (Ceftriaxone Sodium 2000mg/70ml D5w) 2,000 mg IV NOW ONE Stop: 03/14/22 21:46 Last Admin: 03/14/22 21:41 Dose: 2,000 mg Documented by: [id number] Oxycodone/Acetaminophen (Oxycodone/Acetaminophen 10-325 Tab) 1 tab PO NOW STA Stop: 03/14/22 21:52 Last Admin: 03/14/22 21:57 Dose: 1 tab Documented by: [id number] Medical Decision Making Laboratory Data Result diagrams: 03/14/22 19:07 03/14/22 21:30 Lab Results 03/14/22 03/14/22 03/14/22 Range/Units 18:52 19:07 19:07 WBC 12.78 H (4.8-10.8) K/uL RBC 4.02 L (4.2-5.4) M/uL Hgb 11.2 L (12.0-16.0) g/dL Hct 34.5 L (37-47) % MCV 85.8 (80-100) fL MCH 27.9 (25-34) pg MCHC 32.5 (32-36) g/dL Plt Count 209 (130-400) K/uL Immature Gran % (Auto) 0.6 % Neut % (Auto) 75.1 % Lymph % (Auto) 10.6 % [place] % (Auto) 12.5 % Eos % (Auto) 0.8 % Baso % (Auto) 0.4 % Neut # (Auto) 9.59 H (1.4-6.5) K/uL Lymph # (Auto) 1.36 (1.2-3.4) K/uL [place] # (Auto) 1.60 H (0.11-0.59) K/uL Eos # (Auto) 0.10 (0-0.5) K/uL Baso # (Auto) 0.05 (0-0.2) K/uL Immature Gran # (Auto) 0.08 H (0.00-0.02) K/uL Platelet Estimate Normal (Normal) VBG pH (7.36-7.41) VBG pCO2 (38-50) mmHg VBG pO2 mmHg VBG HCO3 mmol/L VBG O2 Saturation % VBG Base Excess mEq/L Barometric Pressure mm/Hg Sodium Cancelled Potassium Cancelled Chloride Cancelled Carbon Dioxide Cancelled Anion Gap Cancelled BUN Cancelled Creatinine Cancelled Est Cr Clr Drug Dosing Cancelled Est GFR ( Amer) Cancelled Est GFR (Non-Af Amer) Cancelled BUN/Creatinine Ratio Cancelled Glucose Cancelled POC Glucose 145 H (70-99) mg/dl Calcium Cancelled Troponin I High Sens (0-14) pg/ml B-Natriuretic Peptide (0-100) pg/ml Urine Color Urine Appearance (Clear) Urine pH (4.5-7.5) Ur Specific [place] (1.000-1.030) Urine Protein (Negative) Urine Glucose (UA) (Negative) Urine Ketones (Negative) Urine Blood (Negative) Urine Nitrite (Negative) Urine Bilirubin (Negative) Urine Urobilinogen (Negative) Ur Leukocyte Esterase (Negative) Urine WBC (Auto) (0-5) /hpf Urine RBC (Auto) (0-4) /hpf U Hyaline Cast (Auto) (0-5) /lpf U Epithel Cells (Auto) (0-5) /lpf Urine Bacteria (Auto) (Negative) 03/14/22 03/14/22 03/14/22 Range/Units 19:07 19:07 19:46 WBC (4.8-10.8) K/uL RBC (4.2-5.4) M/uL Hgb (12.0-16.0) g/dL Hct (37-47) % MCV (80-100) fL MCH (25-34) pg MCHC (32-36) g/dL Plt Count (130-400) K/uL Immature Gran % (Auto) % Neut % (Auto) % Lymph % (Auto) % [place] % (Auto) % Eos % (Auto) % Baso % (Auto) % Neut # (Auto) (1.4-6.5) K/uL Lymph # (Auto) (1.2-3.4) K/uL [place] # (Auto) (0.11-0.59) K/uL Eos # (Auto) (0-0.5) K/uL Baso # (Auto) (0-0.2) K/uL Immature Gran # (Auto) (0.00-0.02) K/uL Platelet Estimate (Normal) VBG pH 7.38 (7.36-7.41) VBG pCO2 46 (38-50) mmHg VBG pO2 24 mmHg VBG HCO3 27 mmol/L VBG O2 Saturation < 60.0 % VBG Base Excess 1.2 mEq/L Barometric Pressure 728.1 mm/Hg Sodium Potassium Chloride Carbon Dioxide Anion Gap BUN Creatinine Est Cr Clr Drug Dosing Est GFR ( Amer) Est GFR (Non-Af Amer) BUN/Creatinine Ratio Glucose POC Glucose (70-99) mg/dl Calcium Troponin I High Sens 13.8 (0-14) pg/ml B-Natriuretic Peptide (0-100) pg/ml Urine Color Yellow Urine Appearance Clear (Clear) Urine pH 5.0 (4.5-7.5) Ur Specific [place] 1.015 (1.000-1.030) Urine Protein 1+ H (Negative) Urine Glucose (UA) Negative (Negative) Urine Ketones Trace H (Negative) Urine Blood 1+ H (Negative) Urine Nitrite Positive A (Negative) Urine Bilirubin Negative (Negative) Urine Urobilinogen Negative (Negative) Ur Leukocyte Esterase 1+ H (Negative) Urine WBC (Auto) 10-30 H (0-5) /hpf Urine RBC (Auto) 0-4 (0-4) /hpf U Hyaline Cast (Auto) 1-5 (0-5) /lpf U Epithel Cells (Auto) 10-20 H (0-5) /lpf Urine Bacteria (Auto) 4+ H (Negative) 03/14/22 03/14/22 Range/Units 21:30 21:30 WBC (4.8-10.8) K/uL RBC (4.2-5.4) M/uL Hgb (12.0-16.0) g/dL Hct (37-47) % MCV (80-100) fL MCH (25-34) pg MCHC (32-36) g/dL Plt Count (130-400) K/uL Immature Gran % (Auto) % Neut % (Auto) % Lymph % (Auto) % [place] % (Auto) % Eos % (Auto) % Baso % (Auto) % Neut # (Auto) (1.4-6.5) K/uL Lymph # (Auto) (1.2-3.4) K/uL [place] # (Auto) (0.11-0.59) K/uL Eos # (Auto) (0-0.5) K/uL Baso # (Auto) (0-0.2) K/uL Immature Gran # (Auto) (0.00-0.02) K/uL Platelet Estimate (Normal) VBG pH (7.36-7.41) VBG pCO2 (38-50) mmHg VBG pO2 mmHg VBG HCO3 mmol/L VBG O2 Saturation % VBG Base Excess mEq/L Barometric Pressure mm/Hg Sodium 136 Potassium 4.6 Chloride 99 Carbon Dioxide 26 Anion Gap 11 BUN 49 H Creatinine 1.65 H Est Cr Clr Drug Dosing 28.3 Est GFR ( Amer) 34.1 Est GFR (Non-Af Amer) 29.4 BUN/Creatinine Ratio 29.7 H Glucose 153 H POC Glucose (70-99) mg/dl Calcium 8.8 Troponin I High Sens (0-14) pg/ml B-Natriuretic Peptide 66 (0-100) pg/ml Urine Color Urine Appearance (Clear) Urine pH (4.5-7.5) Ur Specific [place] (1.000-1.030) Urine Protein (Negative) Urine Glucose (UA) (Negative) Urine Ketones (Negative) Urine Blood (Negative) Urine Nitrite (Negative) Urine Bilirubin (Negative) Urine Urobilinogen (Negative) Ur Leukocyte Esterase (Negative) Urine WBC (Auto) (0-5) /hpf Urine RBC (Auto) (0-4) /hpf U Hyaline Cast (Auto) (0-5) /lpf U Epithel Cells (Auto) (0-5) /lpf Urine Bacteria (Auto) (Negative) Imaging Data Radiologist's Impression: Chest X-Ray 03/14/22 18:50 SINGLE VIEW CHEST CLINICAL HISTORY: Change in mental status. FINDINGS: An AP, portable, upright chest radiograph is obtained. No prior studies are available for comparison at the time of dictation. The examination is degraded by portable technique and apical lordotic positioning. The heart is enlarged noting atherosclerotic calcification of the thoracic aorta. There is pulmonary vascular congestion. Bilateral airspace opacities likely represent interstitial edema. No large pleural effusion or pneumothorax is seen. The skeletal structures are osteopenic. There are numerous healed right-sided rib fracture. Fusion hardware is noted in the lower cervical spine. Advanced arthritic change is seen in the shoulders. IMPRESSION: 1. Cardiomegaly with evidence of congestive failure. 2. Bilateral airspace opacities likely represent pulmonary edema. Clinical correlation will be required. ACT 112: Negative or not required by law. Electronically signed by: Mello Glasgow M.D. 03/14/2022 7:[address] 03/14/22 18:50 CT SCAN OF THE BRAIN WITHOUT IV CONTRAST CLINICAL HISTORY: Change in mental status. COMPARISON STUDY: No priors TECHNIQUE: Unenhanced axial CT scan of the brain is performed from the vertex to the skull base. A dose lowering technique was utilized adhering to the principles of ALARA. CT DOSE: 537.48 mGy.cm FINDINGS: Brain parenchyma: There is age-related involutional change noting mild subcortical and periventricular microangiopathic disease. There is no hemorrhage, mass effect, or evidence of acute territorial ischemia by CT criteria. Vogt-white matter differentiation is preserved. No extra-axial fluid collection is seen. Ventricles, sulci, cisterns: Prominent secondary to involutional change. Intracranial vasculature: There is atherosclerotic calcification of the cavernous carotid arteries. Calvarium: Unremarkable. Sinuses and mastoids: The visualized paranasal sinuses are clear. The mastoid air cells are well pneumatized. Orbits: The bony orbits are grossly intact. There are bilateral ocular lens implants. IMPRESSION: There is no hemorrhage, mass effect, or evidence of acute territorial ischemia by CT criteria. ACT 112: Negative or not required by law. Electronically signed by: Mello Glasgow M.D. 03/14/2022 7:42 PM PreliminaryFindingsOnly See Final Report For Complete Findings CT ABDOMEN & PELVIS Without Contrast: Comparison: 02/04/2016. Clear lung bases. Normal cardiac size with coronaryarterycalcifications. Moderate to large hiatal hernia. The stomach is decompressed. Over distended gallbladder. Distention of the common hepatic duct to, 14.7 at the hepatic hilum. Normal pancreas spleen. Mild hypertrophyof the bilateral adrenal glands. Normal pancreas and spleen. Normal right kidney. Mild left perinephric stranding with left-sided simple renal cyst, largest measuring approximately3.1 cm. Due to the left perinephric stranding, the largest mild left pyelonephritis given clinical context. Atherosclerotic disease of aortawith no aneurysm. Nonspecific small bowel. Abundant fecal debriswithin the colon suggestive of constipation. Distinct appendix not seen with no inflammation bythe cecumto suggest appendicitis. No bowel obstruction. Status post hysterectomy. Normal urinarybladder. Round densitywith calcifications right anterior presacral space measuring 3.3 cm, stable in the wall Postoperative changeswith posterior fusion at L3-L4. Advanced degenerative disease of the spine and bilateral hips. Radiologist: Estrella Ackerman MD Study ready at 23:05 and initial results transmitted at 23:31 ECG Data Indication: + altered mental status Rate (beats per minute): 93 Rhythm: + normal sinus ECG Intervals/blocks: + Right Bundle branch block, + Normal QRS, + Normal DE and + Normal QT-c ECG ST segments: + Normal ST segments ECG Findings: + LVH MDM Narrative 1845: The patient was evaluated in room C10. A complete history and physical exam was performed Cardiac monitoring: An order was placed for continuous cardiac monitoring. The monitor shows a rate of 90 with sinus rhythm 2145: Vital signs stable. Labs show leukocytosis of 12.7. Labs show creatinine of 1.65. Urinalysis is concerning for infection. We will treat the patient with Rocephin 2 g IV piggyback. CT of the head within normal limits. Will contact CT of the abdomen to rule out kidney stone. Chest x-ray shows mild edema. 0000: Vital signs stable. CT of the abdomen does not show kidney stone but does show pyelonephritis. Patient will be admitted to the [facility] hospitalist team Dr. Preston notified. Impression & Plan LEN (acute kidney injury), Acute pyelonephritis Discharge Plan Visit Data Chief Complaint: Altered Mental Status Stated Complaint: AMS Discharge Problem: LEN (acute kidney injury), Acute pyelonephritis Patient Disposition: Admitted As Inpatient Forms Stand Alone Forms: My [facility] Prescriptions Prescriptions: No Action (DME) lancets [Accu-Chek Softclix Lancets] Misc See Rx Instructions .ROUTE .MEDSUPPLY Qty: 100 RF: 0 (DME) OneTouch Verio test strips Strip See Rx Instructions .ROUTE .MEDSUPPLY Qty: 200 RF: 5 furosemide 80 mg tablet 80 mg PO QAM Qty: 90 RF: 1 diclofenac sodium 1 % gel 2 g topical BID Qty: 100 RF: 2 isosorbide mononitrate 30 mg tablet extended release 24 hr 30 mg PO QAM Qty: 90 RF: 1 albuterol sulfate 90 mcg/actuation HFA aerosol inhaler 2 puff inhalation Q4H PRN (Reason: Cough/SOB/Wheezing) Qty: 18 RF: 2 montelukast 10 mg tablet 10 mg PO HS Qty: 90 RF: 1 levothyroxine 100 mcg tablet 100 mcg PO QAM Qty: 90 RF: 1 rosuvastatin 20 mg tablet 20 mg PO HS Qty: 90 RF: 1 lisinopril 40 mg tablet 40 mg PO QAM Qty: 90 RF: 1 spironolactone [Aldactone] 25 mg tablet 25 mg PO QAM Qty: 90 RF: 1 oxycodone-acetaminophen [Percocet] 10-325 mg tablet 1 tab PO Q6H PRN (Reason: pain) Qty: 120 RF: 0 Bydureon BCise 2 mg/0.85 mL auto-injector 2 mg subcut Q7D Qty: 3.4 RF: 2 oxybutynin chloride 5 mg tablet extended release 24hr 5 mg PO DAILY Qty: 30 RF: 3 aspirin [Adult Low Dose Aspirin] 81 mg tablet,delayed release (DR/EC) 81 mg PO QAM RF: 0 pantoprazole [Protonix] 40 mg tablet,delayed release (DR/EC) 40 mg PO QAM Qty: 90 RF: 1 pregabalin [Lyrica] 200 mg capsule 200 mg PO TID Qty: 90 RF: 5 Levemir U-100 Insulin 100 unit/mL solution 12 unit SUBCUT DAILY RF: 0 famotidine 20 mg tablet 20 mg PO .in evening Qty: 90 RF: 1 (DME) pen needle, diabetic [BD Ultra-Fine Kim Pen Needle] 32 gauge x 5/32" needle See Rx Instructions .ROUTE .MEDSUPPLY Qty: 400 RF: 3 Levemir FlexTouch U-100 Insuln 100 unit/mL (3 mL) insulin pen 8 unit subcut QPM MDD 16 Qty: 1 RF: 2 insulin aspart U-100 [Novolog Flexpen U-100 Insulin] 100 unit/mL (3 mL) insulin pen 2 unit subcut TID MDD 16 Qty: 1 RF: 3 fluticasone propionate 50 mcg/actuation spray,suspension 1 spray INTRANASAL DAILY PRN (Reason: Allergy Symptoms) RF: 0 loratadine 10 mg tablet 10 mg PO HS RF: 0 albuterol sulfate 90 mcg/actuation HFA aerosol inhaler 2 puff INHALATION Q4 PRN (Reason: cough,sob,wheeze) RF: 0 insulin aspart U-100 [Novolog Flexpen U-100 Insulin] 100 unit/mL (3 mL) insulin pen 2 unit SUBCUT TID MDD 16 RF: 0 Levemir FlexTouch U-100 Insuln 100 unit/mL (3 mL) insulin pen 8 unit SUBCUT QPM MDD 16 RF: 0 Bydureon BCise 2 mg/0.85 mL auto-injector 2 mg SUBCUT .EVERY 7 DAYS RF: 0 isosorbide mononitrate 30 mg tablet extended release 24 hr 30 mg PO QAM RF: 0 spironolactone 25 mg tablet 25 mg PO QAM RF: 0 oxycodone-acetaminophen 10-325 mg tablet 1 tab PO Q6 PRN (Reason: Pain) RF: 0 lisinopril 40 mg tablet 40 mg PO QAM RF: 0 pregabalin 200 mg capsule 200 mg PO TID RF: 0 levothyroxine 100 mcg tablet 100 mcg PO DAILYBB RF: 0 famotidine 20 mg tablet 20 mg PO QPM RF: 0 pantoprazole 40 mg tablet,delayed release (DR/EC) 40 mg PO QAM RF: 0 metoprolol tartrate 50 mg tablet See Rx Instructions .ROUTE .COMPLEX RF: 0 montelukast 10 mg tablet 10 mg PO HS RF: 0 rosuvastatin 20 mg tablet 20 mg PO HS RF: 0 metoprolol tartrate 50 mg tablet 50 mg PO QAM RF: 0 metoprolol tartrate 25 mg Tablet 25 mg PO QPM RF: 0 Referrals Referrals: PCP,NO [Physician] -
--- NOTE | 2022-03-14 19:45 | CT Scan Report ---
CT SCAN OF THE BRAIN WITHOUT IV CONTRAST CLINICAL HISTORY: Change in mental status. COMPARISON STUDY: No priors TECHNIQUE: Unenhanced axial CT scan of the brain is performed from the vertex to the skull base. A do se lowering technique was utilized adhering to the principles of ALARA. CT DOSE: 537.48 mGy.cm FINDINGS: Brain parenchyma: There is age-related involutional change noting mild subcortical and periventricula r microangiopathic disease. There is no hemorrhage, mass effect, or evidence of acute territorial isc hemia by CT criteria. Vogt-white matter differentiation is preserved. No extra-axial fluid collection is seen. Ventricles, sulci, cisterns: Prominent secondary to involutional change. Intracranial vasculature: There is atherosclerotic calcification of the cavernous carotid arteries. Calvarium: Unremarkable. Sinuses and mastoids: The visualized paranasal sinuses are clear. The mastoid air cells are well pneu matized. Orbits: The bony orbits are grossly intact. There are bilateral ocular lens implants. IMPRESSION: There is no hemorrhage, mass effect, or evidence of acute territorial ischemia by CT keyon edwards. ACT 112: Negative or not required by law. Electronically signed by: Mello Glasgow M.D. 03/14/2022 7:42 PM
[2022-03-14 19:48] LABS: Basophils # (auto) 0.05 K/uL (0-0.2); Basophils % (auto) 0.4 %; Eosinophils % (auto) 0.8 %; Hematocrit (blood only) 34.5 % (37-47); Hemoglobin 11.2 g/dL (12.0-16.0); Immature Granulocytes # (auto) 0.08 K/uL (0.00-0.02); Immature Granulocytes % (auto) 0.6 %; Lymphocytes # (auto) 1.36 K/uL (1.2-3.4); Lymphocytes % (auto) 10.6 %; Mean Corpuscular Hemoglobin 27.9 pg (25-34); Mean Corpuscular Hgb Conc 32.5 g/dL (32-36); Mean Corpuscular Volume 85.8 fL (80-100); Monocytes % (auto) 12.5 %; Neutrophils # (auto) 9.59 K/uL (1.4-6.5); Neutrophils % (auto) 75.1 %; Platelet Count 209 K/uL (130-400); Platelet Estimate Normal (Normal); Red Blood Count 4.02 M/uL (4.2-5.4); White Blood Count 12.78 K/uL (4.8-10.8)
[2022-03-14 19:58] LABS: Base Excess VBG 1.2 mEq/L; HCO3 VBG 27 mmol/L; PCO2 VBG 46 mmHg (38-50); PO2 VBG 24 mmHg; pH VBG 7.38 (7.36-7.41)
[2022-03-14 20:01] LABS: Oxygen Saturation VBG < 60.0 %
[2022-03-14 20:13] LABS: Appearance Urine Clear (Clear); Bacteria Urine Automated 4+ (Negative); Bilirubin Urine Negative (Negative); Blood Urine 1+ (Negative); Color Urine Yellow; Glucose Urine UA Negative (Negative); Ketones Urine Trace (Negative); Leukocyte Esterase Urine 1+ (Negative); Nitrite Urine Positive (Negative); Protein Urine 1+ (Negative); RBC Urine Automated 0-4 /hpf (0-4); Specific Gravity Urine 1.015 (1.000-1.030); Urobilinogen Urine Negative (Negative)
[2022-03-14] MEDS ORDERED: cefTRIAXone SODIUM 1,000 MG/50 ML BAG IV STA (21:20)
[2022-03-14] MEDS ORDERED: cefTRIAXone SODIUM 2000MG/70ML D5W IV ONE (21:45)
[2022-03-14] MEDS ORDERED: oxyCODONE/ACETAMINOPHEN 10-325 TAB PO STA (21:51)
[2022-03-14 22:05] LABS: BUN Creatinine Ratio 29.7 (10-20); Calcium 8.8 mg/dl (8.5-10.1); Creatinine Clr Calc Pharmacy 28.3 ml/min; Est GFR (African American) 34.1 ml/min; Est GFR (Non-African American) 29.4 ml/min; Potassium 4.6 mmol/L (3.5-5.1)
[2022-03-15] MEDS ORDERED: SODIUM CHLORIDE 0.9% 1000ML 500 ML IV ONE (00:28)
--- NOTE | 2022-03-15 00:45 | History & Physical Report ---
Date of Service March 15, 2022 Assessment & Plan (1) UTI (urinary tract infection): Plan: 77-year-old female presenting with 1 week of progressive fatigue, confusion. She also endorses dysuria and mild left flank pain. UA suggestive for infection, she has mild leukocytosis with WBC = 12.78. CT findings as above, possible left pyelonephritis. Follow cultures sent from ER Continue ceftriaxone 2 g IV daily Tylenol as needed for pain or fever (2) HTN (hypertension): Plan: Blood pressure slightly low in the ER. Will hold antihypertensives and continue to monitor Hold spironolactone, metoprolol, lisinopril, isosorbide mononitrate Monitor blood pressure (3) Hypothyroidism: Plan: Chronic. Stable on medications. Check TSH with a.m. labs Continue Synthroid (4) MONROE (obstructive sleep apnea): Plan: Patient does not tolerate device (5) PUD (peptic ulcer disease): Plan: No active bleeding Continue Protonix 40 mg p.o. every morning Continue Pepcid 20 mg p.o. every morning Maalox as needed (6) DM type 2 (diabetes mellitus, type 2): Plan: Blood sugar presently controlled. Currently 153. Last hemoglobin A1c on 12/22/2021 = 8.6. Lantus 7 units daily with insulin sliding scale Consistent carb diet as tolerated Continue Lyrica 200 mg p.o. 3 times daily (7) HLD (hyperlipidemia): Plan: Chronic. Stable on medications Continue Crestor 20 mg p.o. nightly (8) CKD (chronic kidney disease) stage 3, GFR 30-59 ml/min: Plan: Monitor renal function, electrolytes Avoid nephrotoxic agents (9) Rheumatoid arthritis: (10) COPD (chronic obstructive pulmonary disease): Plan: Chronic. Stable. No cough, wheeze Albuterol as needed Plan: FENLR at 125 mL/h x 2 units, check mag/Phos and replete as needed, consistent carb/AHA diet as tolerated ProphylaxisSCDs Codefull Dispoadmit to medical History of Present Illness Chief Complaint: Confusion Primary Care Provider: Joan Blackmon DO Angi Giraldo is a 77-year-old female with history of CAD, CHF, CKD, COPD, depression, diabetes, GERD, RA, hypertension, hyperlipidemia, hypothyroidism presenting with 1 week of progressive somnolence and intermittent confusion as well as fatigue. Patient reports she is more tired than usual and wants to sleep all day. She also reports that she is having difficulty concentrating on TV and tasks at home. Her daughter reports that she appears confused at times. Patient denies fever/chills/headache/neck pain. Denies chest pain/palpitations/abdominal pain/nausea/vomiting/diarrhea/constipation. She does endorse dysuria and mild left flank pain ongoing for the last week as well. No other complaints at this time. In the ER patient afebrile, hemodynamically stable with some reads of lower blood pressures (87/52) ER course: Ceftriaxone 2 g, Percocet, normal saline x500 mL Allergies Allergy/AdvReac Type Severity Reaction Status Date / Time carvedilol AdvReac Mild Heart Verified 03/14/22 20:09 racing Home Medications Medication Instructions Recorded Confirmed Type fluticasone propionate 50 1 spray INTRANASAL DAILY PRN 12/01/19 02/13/22 History mcg/actuation nasal spray,suspension lancets (Accu-Chek Softclix #100 ea 11/02/20 02/13/22 Rx Lancets) blood sugar diagnostic (OneTouch #200 ea 05/02/21 02/13/22 Rx Verio test strips) furosemide 80 mg tablet 80 mg PO QAM #90 tab 06/07/21 02/13/22 Rx diclofenac sodium 1 % topical gel 2 g TOPICAL BID #100 g 06/28/21 02/13/22 Rx aspirin 81 mg tablet,delayed 81 mg PO QAM 08/01/21 02/13/22 History release (Adult Low Dose Aspirin) pantoprazole 40 mg tablet,delayed 40 mg PO QAM #90 tab 10/19/21 02/13/22 Rx release (Protonix) pregabalin 200 mg capsule (Lyrica) 200 mg PO TID #90 cap 10/19/21 02/13/22 Rx isosorbide mononitrate 30 mg 30 mg PO QAM #90 tab 11/28/21 02/13/22 Rx tablet,extended release 24 hr loratadine 10 mg tablet 10 mg PO HS 11/30/21 02/13/22 History albuterol sulfate 90 mcg/actuation 2 puff INHALATION Q4H PRN #18 g 12/14/21 02/13/22 Rx aerosol inhaler metoprolol tartrate 25 mg tablet 25 mg PO QPM 12/15/21 02/13/22 History metoprolol tartrate 50 mg tablet 50 mg PO QAM 12/15/21 02/13/22 History oxybutynin chloride 5 mg 5 mg PO DAILY #30 tab 12/19/21 02/13/22 Rx tablet,extended release 24 hr montelukast 10 mg tablet 10 mg PO HS #90 tab 01/02/22 02/13/22 Rx levothyroxine 100 mcg tablet 100 mcg PO QAM #90 tab 01/23/22 02/13/22 Rx rosuvastatin 20 mg tablet 20 mg PO HS #90 tab 01/23/22 02/13/22 Rx famotidine 20 mg tablet 20 mg PO .in evening #90 tab 02/05/22 02/13/22 Rx insulin detemir U-100 100 unit/mL 12 unit SUBCUT DAILY ml 02/05/22 03/06/22 History subcutaneous solution (Levemir U-100 Insulin) lisinopril 40 mg tablet 40 mg PO QAM #90 tab 02/06/22 02/13/22 Rx spironolactone 25 mg tablet 25 mg PO QAM #90 tab 02/08/22 02/13/22 Rx (Aldactone) oxycodone-acetaminophen 10 mg-325 1 tab PO Q6H PRN #120 tab 02/19/22 Rx mg tablet (Percocet) insulin aspart U-100 100 unit/mL 2 unit SUBCUT TID #1 box MDD 16 03/06/22 03/06/22 Rx (3 mL) subcutaneous pen (Novolog Flexpen U-100 Insulin aspart) insulin detemir U-100 100 unit/mL 8 unit SUBCUT QPM #1 box MDD 16 03/06/22 03/06/22 Rx (3 mL) subcutaneous pen (Levemir FlexTouch U-100 Insulin) pen needle, diabetic 32 gauge x #400 ea 03/06/22 03/06/22 Rx " (BD Ultra-Fine Kim Pen Needle) exenatide microspheres 2 mg/0.85 2 mg SUBCUT Q7D #3.4 ml 03/12/22 Rx mL subcutaneous auto-injector (Byeverardo Parsons) albuterol sulfate 90 mcg/actuation 2 puff INHALATION Q4 PRN 03/14/22 03/14/22 History aerosol inhaler exenatide microspheres 2 mg/0.85 2 mg SUBCUT .EVERY 7 DAYS 03/14/22 03/14/22 History mL subcutaneous auto-injector (Bydureon BCise) famotidine 20 mg tablet 20 mg PO QPM 03/14/22 03/14/22 History insulin aspart U-100 100 unit/mL 2 unit SUBCUT TID MDD 16 03/14/22 03/14/22 History (3 mL) subcutaneous pen (Novolog Flexpen U-100 Insulin aspart) insulin detemir U-100 100 unit/mL 8 unit SUBCUT QPM MDD 16 03/14/22 03/14/22 History (3 mL) subcutaneous pen (Levemir FlexTouch U-100 Insulin) isosorbide mononitrate 30 mg 30 mg PO QAM 03/14/22 03/14/22 History tablet,extended release 24 hr levothyroxine 100 mcg tablet 100 mcg PO DAILYBB 03/14/22 03/14/22 History lisinopril 40 mg tablet 40 mg PO QAM 03/14/22 03/14/22 History metoprolol tartrate 50 mg tablet See Rx Instructions .ROUTE .COMPLEX 03/14/22 03/14/22 History montelukast 10 mg tablet 10 mg PO HS 03/14/22 03/14/22 History oxycodone-acetaminophen 10 mg-325 1 tab PO Q6 PRN 03/14/22 03/14/22 History mg tablet pantoprazole 40 mg tablet,delayed 40 mg PO QAM 03/14/22 03/14/22 History release pregabalin 200 mg capsule 200 mg PO TID 03/14/22 03/14/22 History rosuvastatin 20 mg tablet 20 mg PO HS 03/14/22 03/14/22 History spironolactone 25 mg tablet 25 mg PO QAM 03/14/22 03/14/22 History Past Med/Surg History Medical History (Updated 03/15/22 @ 01:14 by Stefany Preston DO) Aspiration pneumonitis see hospitalization records from 12/01/2019. "concern for aspiration", 12/02/2019, "no evidence of aspiration." CAD (coronary artery disease) Mild, non obstructive disease per 2013 cardiac cath Cervical post-laminectomy syndrome Chronic diastolic CHF (congestive heart failure) follows with Dr. DANK VEGA with [facility] Chronic pain CKD (chronic kidney disease) stage 3, GFR 30-59 ml/min Under surveillance by PCP COPD (chronic obstructive pulmonary disease) chronic ROQUE Degenerative joint disease (DJD) of hip Depression controlled without meds DM type 2 (diabetes mellitus, type 2) IDDM GERD (gastroesophageal reflux disease) Diet related, controlled and stable per pt HLD (hyperlipidemia) HLD (hyperlipidemia) HTN (hypertension) controlled, stable per pt HTN (hypertension) Hypothyroidism Lumbar disc herniation with radiculopathy Lumbar post-laminectomy syndrome Moderate mitral regurgitation Myocardial Infarction Told "silent heart attack" several years ago No pertinent family history Obesity Obstructive lung disease MNOROE (obstructive sleep apnea) Cannot tolerate device PUD (peptic ulcer disease) follows with GI Pulmonary hypertension per cardio records Rheumatoid arthritis Temporomandibular joint disorder + clicking, no locking UTI (urinary tract infection) Surgical History (Updated 03/14/22 @ 20:09 by Tristen Mcclelland) H/O cataract extraction bilat H/O excision of lamina of cervical vertebra for decompression of spinal cord [address] Carreno History of back surgery lumbar fusion L3-L4 decompression/fusion (06/09/20): Grade view 1, MAC#3, ETT 7 at [facility] > ROM side to side limited per pt History of breast biopsy right History of cardiac cath (08/2013) 2013 - mild, non obstructive disease > no stents History of colonoscopy History of esophagogastroduodenoscopy (EGD) (~2014) with Dr. Rowan History of foot surgery right > toe overlap correction History of gastrointestinal procedure (~2015) EUS History of hysterectomy History of tonsillectomy and adenoidectomy History of total right knee replacement (02/2021) SAB at L3-L4 3 attempts. Anesthesia postop progress note: patient started complaining of left shoulder pain radiating to her left breast. She does have a history of left shoulder pain however she states it usually goes down her arm and not into her chest. Her pain does not appear cardiogenic in nature as it is characterized as sharp and is reproducible by palpating her chest. She denies nausea and shortness of breath. An ECG was done and did not show any ischemic changes. A troponin was drawn. Dr. Arias will follow up on the troponin results and update the medicine team who will be following the patient on the floor. Initial troponin negative. Patient ok to go to telemetry for further management. Hx of blepharoplasty bilat No pertinent past surgical history S/P epidural steroid injection S/P ORIF (open reduction internal fixation) fracture (06/26/21) R patellar fracture. Glidescope#3, ETT#7.5 + PNB. Anesthesia postop progress note: pain being managed with dilaudid, fentanyl, nerve block, and percocet. Despite this she continues to rate pain at a 9/10. We have also been unable to wean patient off of oxygen due to being somnolent from narcotics. Pt also states that she will be home alone tonight, but that a friend can check in on her. At this point we will reach out to the primary team and enquire about a possible overnight admission for pain management and oxygen. Family History Grandmother (Maternal) Family history of diabetes mellitus Grandfather (Maternal) Family history of diabetes mellitus Mother Family history of diabetes mellitus Son Family history of diabetes mellitus Other Heart disease No family history of adverse response to anesthesia Stroke Denies family history of Ovarian cancer Prostate cancer Myocardial infarction Breast cancer Colorectal cancer Social History (System 03/14/22 @ 20:09 by Tristen Mcclelland) Smoking Status: Never smoker Second Hand Exposure: Yes (FAMILY SMOKED); Hx Alcohol Use: No Hx Substance Use: No Preferred Language: Estonian Communication Ability: Effective Visual Impairment: No Limitations Hearing Ability: Use of Hearing Aid Aircraft Fueler Required: Video and No Beliefs That Will Affect Care: None marital status: Current Living Situation: Alone Current Living Situation Comment: receives home health 2X A WEEK current occupational status: retired How many Children do You have: 3 Feels Safe at Home: Yes Childhood Exposure to Second-Hand Smoke: Yes Diet Comment: does not follow a diet caffeine: No during the past year weight has: remained stable Dental Care, Regularly: No Physical Activity Frequency: Other Seatbelt Use: always Sunscreen Use: Yes Assistive Devices: Cane, Denture - Upper, Denture - Lower, Glasses and Hearing Aid - Bilateral Review of Systems Review of Systems: All systems reviewed & are unremarkable except as noted in HPI & below Physical Exam Physical Exam: General: patient resting comfortably, NAD, non-toxic in appearance, AA&O x 4 Skin: warm, dry, intact, no rashes or lesions HEENT: NC/AT, PERRL, EOMI, anicteric sclera, conjunctiva without injection, external ear normal to inspection and nontender, nares patent, moist mucus membranes, dentition intact, no oropharyngeal lesions, neck supple, trachea midline, no LAD, no thyromegaly, no JVD Heart: +S1/S2, regular, no m/r/g Lungs: equal air entry bilaterally, no rales/rhonchi/wheezes, no suprapubic tenderness, no CVA tenderness Abd: +BS, soft, NT/ND, no masses/organomegaly/ascites Ext: warm, 2+ pulses in UE/LE bilaterally, no clubbing/cyanosis or edema Neuro: nonfocal, patient AA&O x 4, speech intact, no facial droop, moving all extremities on command with equal strength 5/5 Results & Data Results & Data ([facility]) Vital Signs (Past 12 Hours) Vital Signs Temp Pulse Pulse Resp BP BP Pulse Ox 03/15/22 00:38 82 20 132/74 92 03/14/22 23:39 85 18 87/52 L 94 03/14/22 20:58 88 14 123/50 L 96 03/14/22 20:14 89 18 103/64 92 03/14/22 19:52 91 H 16 103/64 94 03/14/22 19:02 92 03/14/22 19:01 92 03/14/22 18:34 37.2 C 93 H 19 161/55 H 93 Laboratory Results Laboratory Results WBC 12.78 K/uL (4.8-10.8) H 03/14/22 19:07 RBC 4.02 M/uL (4.2-5.4) L 03/14/22 19:07 Hgb 11.2 g/dL (12.0-16.0) L 03/14/22 19:07 Hct 34.5 % (37-47) L 03/14/22 19:07 MCV 85.8 fL (80-100) 03/14/22 19:07 MCH 27.9 pg (25-34) 03/14/22 19:07 MCHC 32.5 g/dL (32-36) 03/14/22 19:07 Plt Count 209 K/uL (130-400) 03/14/22 19:07 Immature Gran % (Auto) 0.6 % 03/14/22 19:07 Neut % (Auto) 75.1 % 03/14/22 19:07 Lymph % (Auto) 10.6 % 03/14/22 19:07 [place] % (Auto) 12.5 % 03/14/22 19:07 Eos % (Auto) 0.8 % 03/14/22 19:07 Baso % (Auto) 0.4 % 03/14/22 19:07 Neut # (Auto) 9.59 K/uL (1.4-6.5) H 03/14/22 19:07 Lymph # (Auto) 1.36 K/uL (1.2-3.4) 03/14/22 19:07 [place] # (Auto) 1.60 K/uL (0.11-0.59) H 03/14/22 19:07 Eos # (Auto) 0.10 K/uL (0-0.5) 03/14/22 19:07 Baso # (Auto) 0.05 K/uL (0-0.2) 03/14/22 19:07 Immature Gran # (Auto) 0.08 K/uL (0.00-0.02) H 03/14/22 19:07 Platelet Estimate Normal (Normal) 03/14/22 19:07 VBG pH 7.38 (7.36-7.41) 03/14/22 19:07 VBG pCO2 46 mmHg (38-50) 03/14/22 19:07 VBG pO2 24 mmHg 03/14/22 19:07 VBG HCO3 27 mmol/L 03/14/22 19:07 VBG O2 Saturation < 60.0 % 03/14/22 19:07 VBG Base Excess 1.2 mEq/L 03/14/22 19:07 Barometric Pressure 728.1 mm/Hg 03/14/22 19:07 Sodium 136 mmol/L (136-145) 03/14/22 21:30 Potassium 4.6 mmol/L (3.5-5.1) 03/14/22 21:30 Chloride 99 mmol/L (98-107) 03/14/22 21:30 Carbon Dioxide 26 mmol/L (21-32) 03/14/22 21:30 Anion Gap 11 (3-11) 03/14/22 21:30 BUN 49 mg/dl (6-23) H 03/14/22 21:30 Creatinine 1.65 mg/dl (0.6-1.2) H 03/14/22 21:30 Est Cr Clr Drug Dosing 28.3 ml/min 03/14/22 21:30 Est GFR ( Amer) 34.1 ml/min 03/14/22 21:30 Est GFR (Non-Af Amer) 29.4 ml/min 03/14/22 21:30 BUN/Creatinine Ratio 29.7 (10-20) H 03/14/22 21:30 Glucose 153 mg/dl (70-99(Fasting)) H 03/14/22 21:30 POC Glucose 145 mg/dl (70-99) H 03/14/22 18:52 Calcium 8.8 mg/dl (8.5-10.1) 03/14/22 21:30 Troponin I High Sens 13.8 pg/ml (0-14) 03/14/22 19:07 B-Natriuretic Peptide 66 pg/ml (0-100) 03/14/22 21:30 Urine Color Yellow 03/14/22 19:46 Urine Appearance Clear (Clear) 03/14/22 19:46 Urine pH 5.0 (4.5-7.5) 03/14/22 19:46 Ur Specific [place] 1.015 (1.000-1.030) 03/14/22 19:46 Urine Protein 1+ (Negative) H 03/14/22 19:46 Urine Glucose (UA) Negative (Negative) 03/14/22 19:46 Urine Ketones Trace (Negative) H 03/14/22 19:46 Urine Blood 1+ (Negative) H 03/14/22 19:46 Urine Nitrite Positive (Negative) A 03/14/22 19:46 Urine Bilirubin Negative (Negative) 03/14/22 19:46 Urine Urobilinogen Negative (Negative) 03/14/22 19:46 Ur Leukocyte Esterase 1+ (Negative) H 03/14/22 19:46 Urine WBC (Auto) 10-30 /hpf (0-5) H 03/14/22 19:46 Urine RBC (Auto) 0-4 /hpf (0-4) 05/18/22 19:46 U Hyaline Cast (Auto) 1-5 /lpf (0-5) 03/14/22 19:46 U Epithel Cells (Auto) 10-20 /lpf (0-5) H 03/14/22 19:46 Urine Bacteria (Auto) 4+ (Negative) H 03/14/22 19:46 Impressions Chest X-Ray 03/14/22 18:50 SINGLE VIEW CHEST CLINICAL HISTORY: Change in mental status. FINDINGS: An AP, portable, upright chest radiograph is obtained. No prior studies are available for comparison at the time of dictation. The examination is degraded by portable technique and apical lordotic positioning. The heart is enlarged noting atherosclerotic calcification of the thoracic aorta. There is pulmonary vascular congestion. Bilateral airspace opacities likely represent interstitial edema. No large pleural effusion or pneumothorax is seen. The skeletal structures are osteopenic. There are numerous healed right-sided rib fracture. Fusion hardware is noted in the lower cervical spine. Advanced arthritic change is seen in the shoulders. IMPRESSION: 1. Cardiomegaly with evidence of congestive failure. 2. Bilateral airspace opacities likely represent pulmonary edema. Clinical correlation will be required. ACT 112: Negative or not required by law. Electronically signed by: Mello Glasgow M.D. 03/14/2022 7:[address] 03/14/22 18:50 CT SCAN OF THE BRAIN WITHOUT IV CONTRAST CLINICAL HISTORY: Change in mental status. COMPARISON STUDY: No priors TECHNIQUE: Unenhanced axial CT scan of the brain is performed from the vertex to the skull base. A dose lowering technique was utilized adhering to the principles of ALARA. CT DOSE: 537.48 mGy.cm FINDINGS: Brain parenchyma: There is age-related involutional change noting mild subcortical and periventricular microangiopathic disease. There is no hemorrhage, mass effect, or evidence of acute territorial ischemia by CT criteria. Vogt-white matter differentiation is preserved. No extra-axial fluid collection is seen. Ventricles, sulci, cisterns: Prominent secondary to involutional change. Intracranial vasculature: There is atherosclerotic calcification of the cav ernous carotid arteries. Calvarium: Unremarkable. Sinuses and mastoids: The visualized paranasal sinuses are clear. The mastoid air cells are well pneumatized. Orbits: The bony orbits are grossly intact. There are bilateral ocular lens implants. IMPRESSION: There is no hemorrhage, mass effect, or evidence of acute territorial ischemia by CT criteria. ACT 112: Negative or not required by law. Electronically signed by: Mello Glasgow M.D. 03/14/2022 7:[address] abdomen pelvis without contrast: Per stat radcomparison 02/04/2016. Clear lung bases. Normal cardiac size with coronary artery calcifications. Moderate to large hiatal hernia. The stomach is decompressed. Over distended gallbladder. Distention of the common hepatic duct 14.7 at the hepatic hilum. Normal pancreas, spleen. Mild hypertrophy of the bilateral adrenal glands. Normal pancreas and spleen. Normal right kidney. Mild left perinephric stranding with left-sided simple renal cyst, largest measuring approximate 3.1 cm. Due to the less left perinephric stranding, the largest mild left pyelonephritis given clinical context. Atherosclerotic disease of aorta with no aneurysm. Nonspecific small bowel. Abundant fecal debris within the colon suggestive of constipation. Distinct appendix not seen with no inflammation by the cecum to suggest appendicitis. No bowel obstruction. Status post hysterectomy. Normal urinary bladder. Round density with calcification right anterior presacral space measuring 3.3 cm, stable in the wall postoperative changes with posterior fusion at L3-L4. Advanced degenerative disease of the spine and bilateral hips. ECG Additional Comments: EKG with normal sinus rhythm at 93 bpm, ID = [id number], QRS = 112, QTc = 450, incomplete right bundle branch block Code Status & VTE Plan VTE Prophylaxis Plan VTE Prophylaxis will be ordered: Yes PG Care Time/CCT Total # of Minutes Spent Total Time Spent with Patient: Total time spent is greater than 50% in coordination of care (as documented) at patient's floor/unit and/or counseling patient: Coding Level of Care Code 71404 Initial Inpt Care Lvl 3 Diagnoses Hypothyroidism E03.9 HTN (hypertension) I10 MONROE (obstructive sleep apnea) G47.33 PUD (peptic ulcer disease) K27.9 DM type 2 (diabetes mellitus, type 2) E11.9 HLD (hyperlipidemia) E78.5 CKD (chronic kidney disease) stage 3, GFR 30-59 ml/min N18.3 Rheumatoid arthritis M06.9 COPD (chronic obstructive pulmonary disease) J44.9 UTI (urinary tract infection) N39.0
[2022-03-15] MEDS ORDERED: ALUMINUM/MAGNESIUM SUSP 30 ML UDC PO STA (01:23)
[2022-03-15] MEDS ORDERED: DEXTROSE 50% 50 ML SYRINGE IV PRN (03:41)
[2022-03-15] MEDS ORDERED: ALBUTEROL HFA 8 GM INHALER INH PRN (03:41)
[2022-03-15] MEDS ORDERED: ALUMINUM/MAGNESIUM SUSP 30 ML UDC PO PRN ×2 (03:41)
[2022-03-15] MEDS ORDERED: GLUCOSE 40% GEL 15 GM TUBE PO PRN (03:41)
[2022-03-15] MEDS ORDERED: ACETAMINOPHEN 325 MG TAB PO PRN (03:41)
[2022-03-15] MEDS ORDERED: GLUCOSE 10 TABS/TUBE PO PRN (03:41)
[2022-03-15] MEDS ORDERED: CARBOHYDRATES FOR HYPOGLYCEMIA PO PRN (03:41)
[2022-03-15] MEDS ORDERED: GLUCAGON FOR INJ 1 MG VIAL SQ PRN (03:41)
[2022-03-15] MEDS ORDERED: ONDANSETRON INJ 2 MG/ML 2 ML VIAL IV PRN (03:41)
[2022-03-15] MEDS: LACTATED RINGER'S 1,000 ML IV SCH ×2 (05:00→13:28)
[2022-03-15] MEDS: LEVOTHYROXINE SODIUM 100 MCG TABLET PO SCH (05:19)
[2022-03-15 07:11] LABS: Albumin Level 3.3 gm/dl (3.4-5.0); Bilirubin Direct 0.1 mg/dl (0-0.2); Bilirubin,Total 0.3 mg/dl (0.2-1.0); Magnesium 2.1 mg/dl (1.7-2.4); Phosphorus 3.4 mg/dl (2.5-4.9); Total Protein 6.8 gm/dl (6.0-8.3)
--- NOTE | 2022-03-15 08:09 | CT Scan Report ---
CT SCAN OF THE ABDOMEN AND PELVIS WITHOUT IV CONTRAST CLINICAL HISTORY: Urinary tract infection. Acute renal insufficiency. COMPARISON STUDY: Abdominal CT dated 02/04/2016. TECHNIQUE: CT scan of the abdomen and pelvis is performed from the lung bases to the proximal femora. Images are reviewed in the axial, sagittal, and coronal planes. IV contrast was not administered for this examination due to poor renal function. Note that the examination is suboptimal without IV cont rast. A dose lowering technique was utilized adhering to the principles of ALARA. The examination is degraded by streak artifact from the arms which could not be elevated above the abdomen. CT DOSE: 1038.98 mGy.cm FINDINGS: Lung bases: The heart is normal in size and without pericardial effusion. The lung bases are clear no ting bibasilar scarring/atelectasis. There is a moderate hiatal hernia. Liver: The unenhanced liver is normal in size, contour, and attenuation. There is no intrahepatic hector iary ductal dilatation. Gallbladder: The gallbladder is distended but otherwise normal in appearance. Spleen: Normal in size and attenuation. Pancreas: The unenhanced pancreas is moderately atrophic and grossly unremarkable. Adrenal glands: Unremarkable. Kidneys: The unenhanced kidneys demonstrate cortical atrophy and are without hydronephrosis. There ar e no renal calculi identified. Cortical and renal sinus cysts on the left measure up to 3.2 cm. There is minimal nonspecific left-sided perinephric stranding. Abdominal vasculature: The abdominal aorta is normal in course and caliber noting advanced atheroscle rotic calcification. Bowel: There is no bowel obstruction. Mild to moderate fecal retention is seen throughout the colon. The appendix is not well-visualized. A portion of the normal appendix is likely seen on image #217. Peritoneum: There is no intraperitoneal free air or abdominal ascites. Lymphadenopathy: None. Pelvic viscera: The bladder is normal as visualized. The uterus is surgically absent. An indeterminan t 3.7 x 3.3 cm heterogeneous round soft tissue lesion in the posterior pelvis on image #291 has been present dating back to 2015. Skeletal structures: The skeletal structures are osteopenic. Postoperative and spondylotic change is seen throughout the lumbar spine. No lytic or blastic lesions are seen. There is marked paravertebral edema at L2-L3 with erosive endplate change along the inferior endplate of L2. IMPRESSION: 1. There is significant paravertebral edema at L2-L3 with erosive endplate change along the inferior endplate of L2. Although this could be on a degenerative basis, in the appropriate clinical setting d iscitis/osteomyelitis could also have this appearance. Clinical correlation will be essential. 2. No additional infectious or inflammatory findings are seen in the abdomen or pelvis. 3. A 3.7 cm heterogeneous ovoid soft tissue lesion is again seen anterior to the sacrum. 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 This has been present dating ba to 2015. 4. Mild to moderate constipation. 5. There is minimal nonspecific left-sided perinephric stranding. Correlate with urinalysis. 6. Additional findings as above. ACT 112: Negative or not required by law. Electronically signed by: Mello Glasgow M.D. 03/15/2022 8:07 AM
[2022-03-15] MEDS: PANTOprazole 40 MG TAB PO SCH (08:42)
[2022-03-15] MEDS: INSULIN GLARGINE SOLOSTAR 100 UNITS/ML 3 ML PEN SC SCH (08:44)
[2022-03-15] MEDS: INSULIN ASPART PER UNIT SC SCH ×4 (08:49→22:18)
[2022-03-15] MEDS: PREGABALIN 100 MG CAP PO SCH ×3 (08:49→22:38)
[2022-03-15] MEDS ORDERED: LORazepam 0.5 MG TAB PO STA ×2 (08:59→09:23)
[2022-03-15 10:48] LABS: BUN Creatinine Ratio 36.5 (10-20); Calcium 8.5 mg/dl (8.5-10.1); Creatinine Clr Calc Pharmacy 30.2 ml/min; Est GFR (African American) 42.4 ml/min; Est GFR (Non-African American) 36.6 ml/min; Potassium 4.2 mmol/L (3.5-5.1)
[2022-03-15 11:15] LABS: Hemoglobin 10.7 g/dL (12.0-16.0); Mean Corpuscular Hemoglobin 27.6 pg (25-34); Mean Corpuscular Hgb Conc 32.4 g/dL (32-36); Mean Corpuscular Volume 85.3 fL (80-100); Mean Platelet Volume 9.9 fL (7.4-10.4); Platelet Count 255 K/uL (130-400); Red Blood Count 3.87 M/uL (4.2-5.4); White Blood Count 10.01 K/uL (4.8-10.8)
--- NOTE | 2022-03-15 12:10 | Magnetic Resonance Report ---
MR lumbar spine wo con CLINICAL HISTORY: Low back pain. History of spinal surgery year ago. Evaluate for possible osteomyel itis.. COMPARISON: 06/03/[address] of the abdomen and pelvis from 03/14/2022 TECHNIQUE: Multiplanar multisequence images of the Lumbar Spine were performed without contrast. FINDINGS: Compared to the previous MRI and the CT examination, there has been interpedicular screw and michoacano fixa tion at L3-4. There is also interval compression deformity of the inferior endplate of L2 which was n ot present on the previous MR. Associated degenerative changes are present at the L2-3 disc space lev el with endplate sclerosis and osteophyte formation.. There is no increased signal seen within the disc space with no MR evidence for discitis. There is mi ld marrow edema present involving the L2 and L3 vertebral bodies. These findings are most characteris tic of degenerative changes rather than osteomyelitis due to the absence of the disc height is presen t. There is mild paraspinal soft tissue swelling present as seen on CT. However, this is most likely related to the fracture and degenerative change. If the patient has elevated white blood cell count and fever, repeat examination with contrast would be necessary despite the low GFR. Follow-up MRI in 4-6 weeks would also be helpful for further evalua tion and confirmation of the above findings. The heights of the remaining vertebral bodies are maintained. The vertebral bodies are in anatomic al ignment. Homogeneous marrow signal is seen without evidence for marrow edema or marrow replacement. T12-L1: The disc space height is maintained. There are no focal disc protrusions or extrusions ident ified. The thecal sac and epidural fat are maintained. The neural foramen are patent bilaterally. Th ere is no evidence for nerve root encroachment. The facet joints are within normal limits. L1-2: The disc space height is maintained. There are no focal disc protrusions or extrusions identi fied. The thecal sac and epidural fat are maintained. The neural foramen are patent bilaterally. The re is no evidence for nerve root encroachment. The facet joints are within normal limits. L2-3: As above L3-4: The patient is status post interpedicular screw and michoacano fixation. Moderate disc space narrowin g is present. There are no focal disc protrusions or extrusions identified. The thecal sac and epid ural fat are maintained. The neural foramen are patent bilaterally. There is no evidence for nerve ro ot encroachment. The facet joints are within normal limits. L4-5: The disc space height is maintained. There are no focal disc protrusions or extrusions identi fied. The thecal sac and epidural fat are maintained. The neural foramen are patent bilaterally. The re is no evidence for nerve root encroachment. Bilateral hypertrophic facet joint disease is present, right greater than left. L5-S1: The disc space height is maintained. There are no focal disc protrusions or extrusions ident ified. The thecal sac and epidural fat are maintained. The neural foramen are patent bilaterally. Th ere is no evidence for nerve root encroachment. Asymmetric hypertrophic facet joint disease is presen t on the right when compared to the left. IMPRESSION: 1. No definite MR evidence for discitis or osteomyelitis as described above. 2. There are marrow edematous changes present at L2 and L3 which appear to be posttraumatic and degen erative in nature as described above. Follow-up is recommended. 3. Additional postsurgical changes and degenerative disc and degenerative facet joint disease are pre sent. ACT 112: Negative or not required by law. Electronically signed by: Ta Kirk M.D. 03/15/2022 12:09 PM
--- NOTE | 2022-03-15 12:17 | Hospitalist Progress Note ---
Date of Service March 15, 2022 Assessment & Plan (1) Discitis: Plan: CT a/p was concerning for osteomyelitis in the L2-L3 region. MRI lumbar spine shows degenerative change. - Orthopedic spine consulted - Hopefully, Dr. Carreno will sign off as low concern for infection. - No change in management at this point, will f/u with Dr. Carreno. (2) UTI (urinary tract infection): Plan: UA suggestive for infection, she has mild leukocytosis with WBC = 12.78.CT findings possible left pyelonephritis. Follow cultures sent from ER Continue ceftriaxone 2 g IV daily Tylenol as needed for pain or fever (3) HTN (hypertension): Plan: Blood pressure slightly low in the ER. Holding spironolactone, metoprolol, lisinopril, isosorbide mononitrate Monitor blood pressure -> Normalized today. Will restart beta-farzad and lisinopril; can add more as needed. (4) Hypothyroidism: Plan: Chronic.TSH was 0.3 this admission. Continue Synthroid (5) MONROE (obstructive sleep apnea): Plan: Patient does not tolerate device (6) PUD (peptic ulcer disease): Plan: No active bleeding. Continue Protonix 40 mg p.o. every morning Continue Pepcid 20 mg p.o. every morning Maalox as needed (7) Chronic diastolic CHF (congestive heart failure): Plan: Presently appears euvolemic. - Will restart home furosemide - Monitor volume status (8) CAD (coronary artery disease): Plan: Non-obstructive CAD on prior [facility] in 2012. - As above (9) DM type 2 (diabetes mellitus, type 2): Plan: Blood sugar presently controlled. Currently 153. Last hemoglobin A1c on 12/22/2021 = 8.6. Lantus 7 units daily with insulin sliding scale Consistent carb diet as tolerated Continue Lyrica 200 mg p.o. 3 times daily (10) DVT prophylaxis: Plan: Heparin 5,000 units SQ Q12h Admission and Anticipated Discharge Date Admission Date: March 15, 2022 Subjective Doing ok today. No major issues. Some soreness in the left arm, but this is chronic. Reports no fevers/chills, chest pain, shortness of breath, abdominal pain, nausea, or vomiting. Physical Exam Constitutional: WD/WN, vitals as above Eyes: EOM intact bilaterally; no conjunctival abnormality ENMT: external ear and nose normal, oropharynx normal Neck: trachea midline, no thyromegaly normal visual inspection Respiratory: normal respiratory effort, lungs clear to auscultation no respiratory distress Cardiovascular: RRR, no murmur, no edema Gastrointestinal (Abdomen): Inspection/Auscultation: abdomen normal to inspection; abdomen not distended Musculoskeletal: no cyanosis or clubbing, extremities motor strength 5/5 Spine: + lumbar spinal tenderness Skin: no rashes, warm and dry Neurologic: moves all extremities and awake Psychiatric: Orientation: alert, oriented to person and cooperative Results & Data Results & Data ([facility]) Vital Signs (Past 12 Hours) Vital Signs Temp Pulse Pulse Pulse Resp BP BP 03/15/22 11:17 37.2 C 76 18 130/74 03/15/22 10:05 76 03/15/22 06:33 37.7 C H 75 16 112/63 03/15/22 03:08 37.3 C 83 24 135/67 03/15/22 02:10 84 16 108/40 L 03/15/22 01:56 111/47 L 03/15/22 01:35 83 18 124/40 L 03/15/22 00:38 82 20 132/74 Pulse Ox 03/15/22 11:17 94 03/15/22 10:05 03/15/22 06:33 100 03/15/22 03:08 96 03/15/22 02:10 93 03/15/22 01:56 03/15/22 01:35 93 03/15/22 00:38 92 PG Care Time/CCT Total # of Minutes Spent Total Time Spent with Patient: Total time spent is greater than 50% in coordination of care (as documented) at patient's floor/unit and/or counseling patient: Coding Level of Care Code 10973 Subseq Hosp Care Lvl 3 Diagnoses UTI (urinary tract infection) N39.0 HTN (hypertension) I10 Hypothyroidism E03.9 MONROE (obstructive sleep apnea) G47.33 PUD (peptic ulcer disease) K27.9 Chronic diastolic CHF (congestive heart failure) I50.32 CAD (coronary artery disease) I25.10 DM type 2 (diabetes mellitus, type 2) E11.9 Discitis M46.40 DVT prophylaxis Z29.9
--- NOTE | 2022-03-15 12:21 | Electrocardiogram Report ---
Test Reason : Blood Pressure : / mmHG Vent. Rate : 093 BPM Atrial Rate : 093 BPM P-R Int : 180 ms QRS Dur : 112 ms QT Int : 362 ms P-R-T Axes : 083 -51 059 degrees QTc Int : 450 ms Normal sinus rhythm Incomplete right bundle branch block Left anterior fascicular block Poor R wave progression, consider anterior TX vs. lead placement vs. LVH Minimal voltage criteria for LVH, may be normal variant Abnormal ECG When compared with ECG of 07-MAR-2021 15:51, T wave inversion no longer evident in Inferior leads Confirmed by Guillermo Calles ([id number]) on 03/15/2022 12:21:22 PM Referred By: REFERRED SELF Confirmed By:Teo Calles
[2022-03-15] MEDS: oxyCODONE/ACETAMINOPHEN 10-325 TAB PO PRN ×2 (13:12→22:37)
[2022-03-15] MEDS ORDERED: cefTRIAXone SODIUM 2,000 MG in DEXTROSE 5% 50 ML IV SCH (20:00)
[2022-03-15] MEDS ORDERED: MONTELUKAST SODIUM 10 MG TABLET PO SCH (21:00)
[2022-03-15] MEDS ORDERED: FAMOTIDINE 20 MG TAB PO SCH (21:00)
[2022-03-15] MEDS ORDERED: ROSUVASTATIN CALCIUM 20 MG TAB PO SCH (21:00)
[2022-03-16] MEDS: LEVOTHYROXINE SODIUM 100 MCG TABLET PO SCH (05:24)
[2022-03-16] MEDS: oxyCODONE/ACETAMINOPHEN 10-325 TAB PO PRN ×2 (06:43→13:06)
[2022-03-16 07:29] LABS: Basophils # (auto) 0.03 K/uL (0-0.2); Basophils % (auto) 0.4 %; Eosinophils # (auto) 0.31 K/uL (0-0.5); Hematocrit (blood only) 35.7 % (37-47); Hemoglobin 11.4 g/dL (12.0-16.0); Immature Granulocytes # (auto) 0.02 K/uL (0.00-0.02); Immature Granulocytes % (auto) 0.3 %; Lymphocytes # (auto) 1.59 K/uL (1.2-3.4); Lymphocytes % (auto) 20.6 %; Mean Corpuscular Hemoglobin 27.3 pg (25-34); Mean Corpuscular Hgb Conc 31.9 g/dL (32-36); Mean Corpuscular Volume 85.6 fL (80-100); Mean Platelet Volume 9.9 fL (7.4-10.4); Monocytes # (auto) 1.02 K/uL (0.11-0.59); Monocytes % (auto) 13.2 %; Neutrophils # (auto) 4.73 K/uL (1.4-6.5); Neutrophils % (auto) 61.5 %; Platelet Count 289 K/uL (130-400); RDW Coefficient of Variation 15.8 % (11.5-14.5); RDW Standard Deviation 49.8 fL (36.4-46.3); Red Blood Count 4.17 M/uL (4.2-5.4)
[2022-03-16 08:24] LABS: BUN Creatinine Ratio 38.1 (10-20); Creatinine Clr Calc Pharmacy 49.5 ml/min; Est GFR (African American) 76.6 ml/min; Est GFR (Non-African American) 66.1 ml/min; Potassium 4.5 mmol/L (3.5-5.1)
[2022-03-16] MEDS: PANTOprazole 40 MG TAB PO SCH (08:42)
[2022-03-16] MEDS: INSULIN GLARGINE SOLOSTAR 100 UNITS/ML 3 ML PEN SC SCH (08:43)
[2022-03-16] MEDS: INSULIN ASPART PER UNIT SC SCH ×2 (08:44→12:09)
[2022-03-16] MEDS: PREGABALIN 100 MG CAP PO SCH ×2 (08:51→13:03)
[2022-03-16] MEDS ORDERED: FUROSEMIDE 80 MG TAB PO SCH (09:00)
--- NOTE | 2022-03-16 09:37 | Orthopedic Consultation ---
Date of Consultation March 16, 2022 Assessment & Plan (1) Lumbar spinal stenosis: Assessment spinal stenosis. Plan at this time she does have additional spinal stenosis at L2-L3 significant in nature. I do not appreciate this is being infectious in nature. It appears to be mostly degenerative. At this time she does not seem to be limited with her stenosis and would not recommend any surgical intervention. History of Present Illness Reason for Consultation: Back pain possible discitis Attending Physician: Apolol Gunter MD History of Present Illness This a very pleasant 77-year-old female known to me the presents with multiple medical issues and is concerned with discitis. She states she does not have any significant back pain at this time. She does describe limitations with prolonged standing and walking secondary to shortness of breath and lung disease. She does not describe any gross neurogenic claudication. She also complains of significant left shoulder pain was considering possible surgery but this has been postponed in light of her new diagnosis of diabetes. Allergies Allergy/AdvReac Type Severity Reaction Status Date / Time carvedilol AdvReac Mild Heart Verified 03/14/22 20:09 racing Home Medications Medication Instructions Recorded Confirmed Type fluticasone propionate 50 1 spray INTRANASAL DAILY PRN 12/01/19 02/13/22 History mcg/actuation nasal spray,suspension lancets (Accu-Chek Softclix #100 ea 11/02/20 02/13/22 Rx Lancets) blood sugar diagnostic (OneTouch #200 ea 05/02/21 02/13/22 Rx Verio test strips) furosemide 80 mg tablet 80 mg PO QAM #90 tab 06/07/21 02/13/22 Rx diclofenac sodium 1 % topical gel 2 g TOPICAL BID #100 g 06/28/21 02/13/22 Rx aspirin 81 mg tablet,delayed 81 mg PO QAM 08/01/21 02/13/22 History release (Adult Low Dose Aspirin) pantoprazole 40 mg tablet,delayed 40 mg PO QAM #90 tab 10/19/21 02/13/22 Rx release (Protonix) pregabalin 200 mg capsule (Lyrica) 200 mg PO TID #90 cap 10/19/21 02/13/22 Rx isosorbide mononitrate 30 mg 30 mg PO QAM #90 tab 11/28/21 02/13/22 Rx tablet,extended release 24 hr loratadine 10 mg tablet 10 mg PO HS 11/30/21 02/13/22 History albuterol sulfate 90 mcg/actuation 2 puff INHALATION Q4H PRN #18 g 12/14/21 02/13/22 Rx aerosol inhaler metoprolol tartrate 25 mg tablet 25 mg PO QPM 12/15/21 02/13/22 History metoprolol tartrate 50 mg tablet 50 mg PO QAM 12/15/21 02/13/22 History oxybutynin chloride 5 mg 5 mg PO DAILY #30 tab 12/19/21 02/13/22 Rx tablet,extended release 24 hr montelukast 10 mg tablet 10 mg PO HS #90 tab 01/02/22 02/13/22 Rx levothyroxine 100 mcg tablet 100 mcg PO QAM #90 tab 01/23/22 02/13/22 Rx rosuvastatin 20 mg tablet 20 mg PO HS #90 tab 01/23/22 02/13/22 Rx famotidine 20 mg tablet 20 mg PO .in evening #90 tab 02/05/22 02/13/22 Rx insulin detemir U-100 100 unit/mL 12 unit SUBCUT DAILY ml 02/05/22 03/06/22 History subcutaneous solution (Levemir U-100 Insulin) lisinopril 40 mg tablet 40 mg PO QAM #90 tab 02/06/22 02/13/22 Rx spironolactone 25 mg tablet 25 mg PO QAM #90 tab 02/08/22 02/13/22 Rx (Aldactone) oxycodone-acetaminophen 10 mg-325 1 tab PO Q6H PRN #120 tab 02/19/22 Rx mg tablet (Percocet) insulin aspart U-100 100 unit/mL 2 unit SUBCUT TID #1 box MDD 16 03/06/22 03/06/22 Rx (3 mL) subcutaneous pen (Novolog Flexpen U-100 Insulin aspart) insulin detemir U-100 100 unit/mL 8 unit SUBCUT QPM #1 box MDD 16 03/06/22 03/06/22 Rx (3 mL) subcutaneous pen (Levemir FlexTouch U-100 Insulin) pen needle, diabetic 32 gauge x #400 ea 03/06/22 03/06/22 Rx 532" (BD Ultra-Fine Kim Pen Needle) exenatide microspheres 2 mg/0.85 2 mg SUBCUT Q7D #3.4 ml 03/12/22 Rx mL subcutaneous auto-injector (Bydureon BCise) albuterol sulfate 90 mcg/actuation 2 puff INHALATION Q4 PRN 03/14/22 03/14/22 History aerosol inhaler exenatide microspheres 2 mg/0.85 2 mg SUBCUT .EVERY 7 DAYS 03/14/22 03/14/22 History mL subcutaneous auto-injector (Bydureon BCise) famotidine 20 mg tablet 20 mg PO QPM 03/14/22 03/14/22 History insulin aspart U-100 100 unit/mL 2 unit SUBCUT TID MDD 16 03/14/22 03/14/22 History (3 mL) subcutaneous pen (Novolog Flexpen U-100 Insulin aspart) insulin detemir U-100 100 unit/mL 8 unit SUBCUT QPM MDD 16 03/14/22 03/14/22 History (3 mL) subcutaneous pen (Levemir FlexTouch U-100 Insulin) isosorbide mononitrate 30 mg 30 mg PO QAM 03/14/22 03/14/22 History tablet,extended release 24 hr levothyroxine 100 mcg tablet 100 mcg PO DAILYBB 03/14/22 03/14/22 History lisinopril 40 mg tablet 40 mg PO QAM 03/14/22 03/14/22 History metoprolol tartrate 50 mg tablet See Rx Instructions .ROUTE .COMPLEX 03/14/22 03/14/22 History montelukast 10 mg tablet 10 mg PO HS 03/14/22 03/14/22 History oxycodone-acetaminophen 10 mg-325 1 tab PO Q6 PRN 03/14/22 03/14/22 History mg tablet pantoprazole 40 mg tablet,delayed 40 mg PO QAM 03/14/22 03/14/22 History release pregabalin 200 mg capsule 200 mg PO TID 03/14/22 03/14/22 History rosuvastatin 20 mg tablet 20 mg PO HS 03/14/22 03/14/22 History spironolactone 25 mg tablet 25 mg PO QAM 03/14/22 03/14/22 History Patient History Medical History (Updated 03/16/22 @ 09:36 by Chadwick Carreno DO) Aspiration pneumonitis see hospitalization records from 12/01/2019. "concern for aspiration", 12/02/2019, "no evidence of aspiration." CAD (coronary artery disease) Mild, non obstructive disease per 2013 cardiac cath Cervical post-laminectomy syndrome Chronic diastolic CHF (congestive heart failure) follows with Dr. DANK VEGA with [facility] Chronic pain CKD (chronic kidney disease) stage 3, GFR 30-59 ml/min Under surveillance by PCP COPD (chronic obstructive pulmonary disease) chronic ROQUE Degenerative joint disease (DJD) of hip Depression controlled without meds DM type 2 (diabetes mellitus, type 2) IDDM GERD (gastroesophageal reflux disease) Diet related, controlled and stable per pt HLD (hyperlipidemia) HLD (hyperlipidemia) HTN (hypertension) controlled, stable per pt HTN (hypertension) Hypothyroidism Lumbar disc herniation with radiculopathy Lumbar post-laminectomy syndrome Moderate mitral regurgitation Myocardial Infarction Told "silent heart attack" several years ago No pertinent family history Obesity Obstructive lung disease MONROE (obstructive sleep apnea) Cannot tolerate device PUD (peptic ulcer disease) follows with GI Pulmonary hypertension per cardio records Rheumatoid arthritis Temporomandibular joint disorder + clicking, no locking UTI (urinary tract infection) Surgical History (Updated 03/14/22 @ 20:09 by Tristen Mcclelland) H/O cataract extraction bilat H/O excision of lamina of cervical vertebra for decompression of spinal cord [address]reno History of back surgery lumbar fusion L3-L4 decompression/fusion (06/09/20): Grade view 1, MAC#3, ETT 7 at [facility] > ROM side to side limited per pt History of breast biopsy right History of cardiac cath (08/2013) 2012 - mild, non obstructive disease > no stents History of colonoscopy History of esophagogastroduodenoscopy (EGD) (~2014) with Dr. Rowan History of foot surgery right > toe overlap correction History of gastrointestinal procedure (~2015) EUS History of hysterectomy History of tonsillectomy and adenoidectomy History of total right knee replacement (02/2021) SAB at L3-L4 3 attempts. Anesthesia postop progress note: patient started complaining of left shoulder pain radiating to her left breast. She does have a history of left shoulder pain however she states it usually goes down her arm and not into her chest. Her pain does not appear cardiogenic in nature as it is characterized as sharp and is reproducible by palpating her chest. She denies nausea and shortness of breath. An ECG was done and did not show any ischemic changes. A troponin was drawn. Dr. Arias will follow up on the troponin results and update the medicine team who will be following the patient on the floor. Initial troponin negative. Patient ok to go to telemetry for further management. Hx of blepharoplasty bilat No pertinent past surgical history S/P epidural steroid injection S/P ORIF (open reduction internal fixation) fracture (06/26/21) R patellar fracture. Glidescope#3, ETT#7.5 + PNB. Anesthesia postop progress note: pain being managed with dilaudid, fentanyl, nerve block, and percocet. Despite this she continues to rate pain at a 9/10. We have also been unable to wean patient off of oxygen due to being somnolent from narcotics. Pt also states that she will be home alone tonight, but that a friend can check in on her. At this point we will reach out to the primary team and enquire about a possible overnight admission for pain management and oxygen. Family History Grandmother (Maternal) Family history of diabetes mellitus Grandfather (Maternal) Family history of diabetes mellitus Mother Family history of diabetes mellitus Son Family history of diabetes mellitus Other Heart disease No family history of adverse response to anesthesia Stroke Denies family history of Ovarian cancer Prostate cancer Myocardial infarction Breast cancer Colorectal cancer Social History (System 03/14/22 @ 20:09 by Tristen Mcclelland) Smoking Status: Never smoker Second Hand Exposure: Yes (FAMILY SMOKED); Hx Alcohol Use: No Hx Substance Use: No Preferred Language: Gambian Communication Ability: Effective Visual Impairment: No Limitations Hearing Ability: Use of Hearing Aid 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 Required: No Beliefs That Will Affect Care: None marital status: Current Living Situation: Alone Current Living Situation Comment: receives home health 2X A WEEK current occupational status: retired How many Children do You have: 3 Feels Safe at Home: Yes Childhood Exposure to Second-Hand Smoke: Yes Diet Comment: does not follow a diet caffeine: No during the past year weight has: remained stable Dental Care, Regularly: No Physical Activity Frequency: Other Seatbelt Use: always Sunscreen Use: Yes Assistive Devices: Cane, Denture - Upper and Denture - Lower Physical Exam Physical Exam: On exam she is alert and oriented and quite cooperative. She demonstrates reasonable strength to testing lower extremities sensory is intact. Results & Data ([facility]) Vital Signs (Past 12 Hours) Vital Signs Temp Pulse Pulse Resp BP Pulse Ox 03/16/22 08:08 73 03/16/22 07:37 36.9 C 82 18 135/74 91 03/16/22 02:39 36.7 C 71 16 162/78 H 97 03/15/22 23:49 36.7 C 73 18 171/69 H 97 03/15/22 22:17 73
[2022-03-16] MEDS ORDERED: CEFDINIR 300 MG CAP PO STA (15:44)
--- NOTE | 2022-03-16 16:37 | Discharge Summary ---
Date of Service March 16, 2022 Admission HPI Per Admitting Provider Angi Giraldo is a 77-year-old female with history of CAD, CHF, CKD, COPD, depression, diabetes, GERD, RA, hypertension, hyperlipidemia, hypothyroidism presenting with 1 week of progressive somnolence and intermittent confusion as well as fatigue. Patient reports she is more tired than usual and wants to sleep all day. She also reports that she is having difficulty concentrating on TV and tasks at home. Her daughter reports that she appears confused at times. Patient denies fever/chills/headache/neck pain. Denies chest pain/palpitations/abdominal pain/nausea/vomiting/diarrhea/constipation. She does endorse dysuria and mild left flank pain ongoing for the last week as well. No other complaints at this time. In the ER patient afebrile, hemodynamically stable with some reads of lower blood pressures (87/52) ER course: Ceftriaxone 2 g, Percocet, normal saline x500 mL Principal Diagnosis UTI Discharge Exam Constitutional WD/WN, vitals as above Eyes EOM intact bilaterally; no conjunctival abnormality ENMT external ear and nose normal, oropharynx normal Neck trachea midline, no thyromegaly normal visual inspection Respiratory normal respiratory effort, lungs clear to auscultation no respiratory distress Cardiovascular RRR, no murmur, no edema Gastrointestinal (Abdomen) Inspection/Auscultation: abdomen normal to inspection; abdomen not distended Musculoskeletal no cyanosis or clubbing, extremities motor strength 5/5 Spine: + lumbar spinal tenderness Skin no rashes, warm and dry Neurologic moves all extremities and awake Psychiatric Orientation: alert, oriented to person and cooperative Discharge Data Allergies Allergy/AdvReac Type Severity Reaction Status Date / Time carvedilol AdvReac Mild Heart Verified 03/14/22 20:09 racing Consultations 03/14/22 23:39 ED Decision to Admit Stat 03/15/22 08:23 Consult Orthopedic Surgery Routine Ordered Studies 03/14/22 18:50 CT head/brain wo con Stat 03/14/22 22:31 CT abd pelvis wo con Urgent 03/15/22 08:23 MR lumbar spine wo con Urgent Hospital Course (1) UTI (urinary tract infection): UA suggestive for infection, she has mild leukocytosis with WBC = 12.78.CT findings possible left pyelonephritis. - Culture grew bray-sensitive E. coli Continue ceftriaxone 2 g IV daily -> Switch to cefdinir x 7 days on discharge. (2) Discitis: CT a/p was concerning for osteomyelitis in the L2-L3 region. MRI lumbar spine shows degenerative change. - Orthopedic spine consulted - No concern for discitis/osteomyelitis infection. (3) HTN (hypertension): Blood pressure slightly low in the ER. Normalized today. No change on discharge. (4) Hypothyroidism: Chronic.TSH was 0.3 this admission. Continue Synthroid (5) MONROE (obstructive sleep apnea): Patient does not tolerate device (6) PUD (peptic ulcer disease): No active bleeding. Continue Protonix 40 mg p.o. every morning Continue Pepcid 20 mg p.o. every morning Maalox as needed (7) Chronic diastolic CHF (congestive heart failure): Presently appears euvolemic. - Will restart home furosemide (8) CAD (coronary artery disease): Non-obstructive CAD on prior [facility] in 2012. - As above (9) DM type 2 (diabetes mellitus, type 2): Blood sugar presently controlled. Currently 153. Last hemoglobin A1c on 12/22/2021 = 8.6. Lantus 7 units daily with insulin sliding scale Consistent carb diet as tolerated Continue Lyrica 200 mg p.o. 3 times daily (10) DVT prophylaxis: Heparin 5,000 units SQ Q12h Med rec was never done on admission. For some reason there were lots of repeats. I specifically told the patient and her daughter to ignore the discharge med rec. Continue home meds unchanged apart from new antibiotic. Total Time Total Time Spent Total Time Spent (In Minutes): 35 Discharge Plan Discharge Items Patient Disposition: Home - Self-Care Reason For Visit: WEAKNESS, FATIGUE Discharge Diagnosis: Urinary tract infection causing weakness & confusion Activity: Resume your previous activity Non-emergency contact: Primary Care Provider Call non-emergency contact if: your symptoms worsen and your temperature is above 101 Follow-up/Referrals: Joan Blackmon DO [Primary Care Provider] - 03/29/22 9:20 am Diet: Carb Consistent or DM2 and Heart Healthy Addtl Attending Provider Instructions: Ms. Giraldo, You were admitted to the hospital with confusion and tiredness. You were found to have a UTI with very mild left kidney involvement. But, please, don't worry! Your kidney is doing great today. Your infection is clearing, and you are ready to be discharged today. We will send you home on another 7 days of antibiotics to be sure the infection is resolved. Please take it easy for 2-3 more days and gradually increase your activity as tolerated. Pending Studies at Discharge: No Stand-Alone Forms: My [facility], Smoking Cessation Medications and DC Order Prescriptions: New cefdinir 300 mg capsule 300 mg PO BID Qty: 14 RF: 0 Continued (DME) lancets [Accu-Chek Softclix Lancets] Misc See Rx Instructions .ROUTE .MEDSUPPLY Qty: 100 RF: 0 (DME) OneTouch Verio test strips Strip See Rx Instructions .ROUTE .MEDSUPPLY Qty: 200 RF: 5 furosemide 80 mg tablet 80 mg PO QAM Qty: 90 RF: 1 diclofenac sodium 1 % gel 2 g topical BID Qty: 100 RF: 2 isosorbide mononitrate 30 mg tablet extended release 24 hr 30 mg PO QAM Qty: 90 RF: 1 albuterol sulfate 90 mcg/actuation HFA aerosol inhaler 2 puff inhalation Q4H PRN (Reason: Cough/SOB/Wheezing) Qty: 18 RF: 2 montelukast 10 mg tablet 10 mg PO HS Qty: 90 RF: 1 levothyroxine 100 mcg tablet 100 mcg PO QAM Qty: 90 RF: 1 rosuvastatin 20 mg tablet 20 mg PO HS Qty: 90 RF: 1 lisinopril 40 mg tablet 40 mg PO QAM Qty: 90 RF: 1 spironolactone [Aldactone] 25 mg tablet 25 mg PO QAM Qty: 90 RF: 1 oxycodone-acetaminophen [Percocet] 10-325 mg tablet 1 tab PO Q6H PRN (Reason: pain) Qty: 120 RF: 0 Bydureon BCise 2 mg/0.85 mL auto-injector 2 mg subcut Q7D Qty: 3.4 RF: 2 oxybutynin chloride 5 mg tablet extended release 24hr 5 mg PO DAILY Qty: 30 RF: 3 aspirin [Adult Low Dose Aspirin] 81 mg tablet,delayed release (DR/EC) 81 mg PO QAM RF: 0 pantoprazole [Protonix] 40 mg tablet,delayed release (DR/EC) 40 mg PO QAM Qty: 90 RF: 1 pregabalin [Lyrica] 200 mg capsule 200 mg PO TID Qty: 90 RF: 5 Levemir U-100 Insulin 100 unit/mL solution 12 unit SUBCUT DAILY RF: 0 famotidine 20 mg tablet 20 mg PO .in evening Qty: 90 RF: 1 (DME) pen needle, diabetic [BD Ultra-Fine Kim Pen Needle] 32 gauge x 5/32" needle See Rx Instructions .ROUTE .MEDSUPPLY Qty: 400 RF: 3 Levemir FlexTouch U-100 Insuln 100 unit/mL (3 mL) insulin pen 8 unit subcut QPM MDD 16 Qty: 1 RF: 2 insulin aspart U-100 [Novolog Flexpen U-100 Insulin] 100 unit/mL (3 mL) insulin pen 2 unit subcut TID MDD 16 Qty: 1 RF: 3 fluticasone propionate 50 mcg/actuation spray,suspension 1 spray INTRANASAL DAILY PRN (Reason: Allergy Symptoms) RF: 0 loratadine 10 mg tablet 10 mg PO HS RF: 0 albuterol sulfate 90 mcg/actuation HFA aerosol inhaler 2 puff INHALATION Q4 PRN (Reason: cough,sob,wheeze) RF: 0 insulin aspart U-100 [Novolog Flexpen U-100 Insulin] 100 unit/mL (3 mL) insulin pen 2 unit SUBCUT TID MDD 16 RF: 0 Levemir FlexTouch U-100 Insuln 100 unit/mL (3 mL) insulin pen 8 unit SUBCUT QPM MDD 16 RF: 0 Bydureon BCise 2 mg/0.85 mL auto-injector 2 mg SUBCUT .EVERY 7 DAYS RF: 0 isosorbide mononitrate 30 mg tablet extended release 24 hr 30 mg PO QAM RF: 0 spironolactone 25 mg tablet 25 mg PO QAM RF: 0 oxycodone-acetaminophen 10-325 mg tablet 1 tab PO Q6 PRN (Reason: Pain) RF: 0 lisinopril 40 mg tablet 40 mg PO QAM RF: 0 pregabalin 200 mg capsule 200 mg PO TID RF: 0 levothyroxine 100 mcg tablet 100 mcg PO DAILYBB RF: 0 famotidine 20 mg tablet 20 mg PO QPM RF: 0 pantoprazole 40 mg tablet,delayed release (DR/EC) 40 mg PO QAM RF: 0 metoprolol tartrate 50 mg tablet See Rx Instructions .ROUTE .COMPLEX RF: 0 montelukast 10 mg tablet 10 mg PO HS RF: 0 rosuvastatin 20 mg tablet 20 mg PO HS RF: 0 metoprolol tartrate 50 mg tablet 50 mg PO QAM RF: 0 metoprolol tartrate 25 mg Tablet 25 mg PO QPM RF: 0 Discharge Orders: Discharge Order (Routine); Ordered 03/16/22 Ordered By: Apollo Gunter Admission Data Admit Date/Time: 03/15/22 00:45 Attending Provider: Apollo Gunter Admit Provider: Stefany Preston Primary Care Provider: Joan Blackmon Other Providers: Apollo Gunter ; Chadwick Carreno ; Jesse Caceres [facility] Other Interventions: Discharge Summary Assessment (RN) Last Done: 03/16/22 16:00 Coding Level of Care Code D/C DAY MANAGEMENT >30 MINS Diagnoses Discitis M46.40 UTI (urinary tract infection) N39.0 HTN (hypertension) I10 Hypothyroidism E03.9 MONROE (obstructive sleep apnea) G47.33 PUD (peptic ulcer disease) K27.9 Chronic diastolic CHF (congestive heart failure) I50.32 CAD (coronary artery disease) I25.10 DM type 2 (diabetes mellitus, type 2) E11.9 DVT prophylaxis Z29.9
== END 2022-03-16 16:30 | disposition home or self-care (01) ==
LOC: EDBD → ED 18:29 → MERGE 18:29 → SUATTDRO 03-15 00:45 → INTOOBSV 03-15 00:45 → 2N 03-15 00:45

== ENCOUNTER 2022-04-11 12:29 | Observation (INO) ==
--- NOTE | 2022-04-11 13:31 | Emergency Department Note ---
History of Present Illness General Chief complaint: Hypotension Time Seen by Provider: 04/11/22 13:11 Source: patient, RN notes reviewed and old records reviewed Mode of arrival: ambulatory Limitations: no limitations History of Present Illness This patient was sent over by her family doctor after having hypotension. She was seen in the clinic yesterday after feeling generally weak her pressure was low and they stopped her blood pressure medication she felt a little nauseated this morning and thought it would be related to her blood pressure so she actually took half of her dose. On upon her blood pressure recheck apparently her pressure was low and they sent her here. She has been feeling mildly weak and tired she felt nauseous earlier but feels better she denies any fever or chest pain she has some dyspnea on exertion if she walks far no blood in her stool no lower extremity pain or swelling no focal numbness or weakness she said she does not have any dysuria but she is some soreness in around her bladder when she wipes. Occasional headache. Home Medications Medication Instructions Recorded Confirmed Type fluticasone propionate 50 1 spray INTRANASAL DAILY PRN 12/01/19 04/11/22 History mcg/actuation nasal spray,suspension lancets (Accu-Chek Softclix #100 ea 11/02/20 04/10/22 Rx Lancets) blood sugar diagnostic (OneTouch #200 ea 05/02/21 04/10/22 Rx Verio test strips) diclofenac sodium 1 % topical gel 2 g TOPICAL BID #100 g 06/28/21 04/11/22 Rx aspirin 81 mg tablet,delayed 81 mg PO QAM 08/01/21 04/11/22 History release (Adult Low Dose Aspirin) loratadine 10 mg tablet 10 mg PO HS 11/30/21 04/10/22 History oxybutynin chloride 5 mg 5 mg PO DAILY #30 tab 12/19/21 04/10/22 Rx tablet,extended release 24 hr pen needle, diabetic 32 gauge x #400 ea 03/06/22 04/10/22 Rx 5/32" (BD Ultra-Fine Kim Pen Needle) exenatide microspheres 2 mg/0.85 2 mg SUBCUT Q7D #3.4 ml 03/12/22 04/11/22 Rx mL subcutaneous auto-injector (ChristianPalm Jaqueline) albuterol sulfate 90 mcg/actuation 2 puff INHALATION Q4 PRN 03/14/22 04/11/22 History aerosol inhaler famotidine 20 mg tablet 20 mg PO QPM 03/14/22 04/11/22 History insulin aspart U-100 100 unit/mL 2 unit SUBCUT TIDM MDD 16 03/14/22 04/11/22 History (3 mL) subcutaneous pen (Novolog Flexpen U-100 Insulin aspart) insulin detemir U-100 100 unit/mL 8 unit SUBCUT QPM MDD 16 03/14/22 04/10/22 History (3 mL) subcutaneous pen (Levemir FlexTouch U-100 Insulin) isosorbide mononitrate 30 mg 30 mg PO QAM 03/14/22 04/11/22 History tablet,extended release 24 hr levothyroxine 100 mcg tablet 100 mcg PO DAILYBB 03/14/22 04/10/22 History lisinopril 40 mg tablet 40 mg PO QAM 03/14/22 04/10/22 History metoprolol tartrate 50 mg tablet See Rx Instructions .ROUTE .COMPLEX 03/14/22 04/10/22 History montelukast 10 mg tablet 10 mg PO HS 03/14/22 04/10/22 History pantoprazole 40 mg tablet,delayed 40 mg PO QAM 03/14/22 04/10/22 History release pregabalin 200 mg capsule 200 mg PO TID 03/14/22 04/10/22 History rosuvastatin 20 mg tablet 20 mg PO HS 03/14/22 04/10/22 History spironolactone 25 mg tablet 25 mg PO QAM 03/14/22 04/10/22 History oxycodone-acetaminophen 10 mg-325 1 tab PO Q6H PRN #120 tab 03/22/22 04/10/22 Rx mg tablet (Percocet) furosemide 80 mg tablet 80 mg PO QAM #90 tab 03/29/22 04/11/22 Rx Allergies Allergy/AdvReac Type Severity Reaction Status Date / Time carvedilol AdvReac Mild Heart Verified 04/10/22 12:02 racing Past Med/Surg History Medical History Acute pyelonephritis LEN (acute kidney injury) Aspiration pneumonitis see hospitalization records from 12/01/2019. "concern for aspiration", 12/02/2019, "no evidence of aspiration." CAD (coronary artery disease) Mild, non obstructive disease per 2012 cardiac cath Cervical post-laminectomy syndrome Chronic diastolic CHF (congestive heart failure) follows with Dr. DANK VEGA with [facility] Chronic pain CKD (chronic kidney disease) stage 3, GFR 30-59 ml/min Under surveillance by PCP COPD (chronic obstructive pulmonary disease) chronic ROQUE Degenerative joint disease (DJD) of hip Depression controlled without meds DM type 2 (diabetes mellitus, type 2) IDDM GERD (gastroesophageal reflux disease) Diet related, controlled and stable per pt HLD (hyperlipidemia) HTN (hypertension) controlled, stable per pt Hypothyroidism Lumbar disc herniation with radiculopathy Lumbar post-laminectomy syndrome Moderate mitral regurgitation Myocardial Infarction Told "silent heart attack" several years ago No pertinent family history Obesity MONROE (obstructive sleep apnea) Cannot tolerate device PUD (peptic ulcer disease) follows with GI Pulmonary hypertension per cardio records Rheumatoid arthritis Temporomandibular joint disorder + clicking, no locking Surgical History H/O cataract extraction bilat H/O excision of lamina of cervical vertebra for decompression of spinal cord [address] Carreno History of back surgery lumbar fusion L3-L4 decompression/fusion (06/09/20): Grade view 1, MAC#3, ETT 7 at [facility] > ROM side to side limited per pt History of breast biopsy right History of cardiac cath (08/2013) 2012 - mild, non obstructive disease > no stents History of colonoscopy History of esophagogastroduodenoscopy (EGD) (~2014) with Dr. Rowan History of foot surgery right > toe overlap correction History of gastrointestinal procedure (~2015) EUS History of hysterectomy History of tonsillectomy and adenoidectomy History of total right knee replacement (02/2021) SAB at L3-L4 3 attempts. Anesthesia postop progress note: patient started complaining of left shoulder pain radiating to her left breast. She does have a history of left shoulder pain however she states it usually goes down her arm and not into her chest. Her pain does not appear cardiogenic in nature as it is characterized as sharp and is reproducible by palpating her chest. She denies nausea and shortness of breath. An ECG was done and did not show any ischemic changes. A troponin was drawn. Dr. Arias will follow up on the troponin results and update the medicine team who will be following the patient on the floor. Initial troponin negative. Patient ok to go to telemetry for further management. Hx of blepharoplasty bilat No pertinent past surgical history S/P epidural steroid injection S/P ORIF (open reduction internal fixation) fracture (06/26/21) R patellar fracture. Glidescope#3, ETT#7.5 + PNB. Anesthesia postop progress note: pain being managed with dilaudid, fentanyl, nerve block, and percocet. Despite this she continues to rate pain at a 9/10. We have also been unable to wean patient off of oxygen due to being somnolent from narcotics. Pt also states that she will be home alone tonight, but that a friend can check in on her. At this point we will reach out to the primary team and enquire about a possible overnight admission for pain management and oxygen. Family History Grandmother (Maternal) Family history of diabetes mellitus Grandfather (Maternal) Family history of diabetes mellitus Mother Family history of diabetes mellitus Son Family history of diabetes mellitus Other Heart disease No family history of adverse response to anesthesia Stroke Denies family history of Ovarian cancer Prostate cancer Myocardial infarction Breast cancer Colorectal cancer Social History Smoking Status: Never smoker Second Hand Exposure: Yes (FAMILY SMOKED); Hx Alcohol Use: No Hx Substance Use: No Preferred Language: Korean Communication Ability: Effective Visual Impairment: No Limitations Hearing Ability: Use of Hearing Aid Animal Nutrition Consultant Required: No Beliefs That Will Affect Care: None marital status: Current Living Situation: Alone Current Living Situation Comment: receives home health 2X A WEEK current occupational status: retired How many Children do You have: 3 Feels Safe at Home: Yes Childhood Exposure to Second-Hand Smoke: Yes Diet Comment: does not follow a diet caffeine: No during the past year weight has: remained stable Dental Care, Regularly: No Physical Activity Frequency: Other Seatbelt Use: always Sunscreen Use: Yes Assistive Devices: Cane Review of Systems A total of 10 systems reviewed and were otherwise negative Physical Exam Vital Signs Vital Signs - 24 hr 04/11/22 12:52 04/11/22 12:54 04/11/22 13:00 Temperature 36.7 C Temperature Source Oral Pulse Rate 69 66 65 Pulse Rate from SpO2 Sensor 69 66 Pulse Rhythm Regular Pulse Strength Normal Respiratory Rate 25 H 20 12 Respiratory Effort / Characteristics Non-Labored Respiratory Depth Normal Blood Pressure 124/66 124/66 Blood Pressure Mean 85 85 Blood Pressure Position Semi-fowlers Pulse Oximetry 96 96 96 Oxygen Delivery Method Room Air Oxygen Flow Rate 0 Sepsis Recent Fever Within 48 Hours No Sepsis New/Unexplained Change in Mental Status No Sepsis Action Taken by Nursing No Action Required 04/11/22 13:14 04/11/22 13:37 04/11/22 14:00 Temperature Temperature Source Pulse Rate 69 69 Pulse Rate from SpO2 Sensor 69 70 Pulse Rhythm Pulse Strength Respiratory Rate 17 18 Respiratory Effort / Characteristics Respiratory Depth Blood Pressure 137/55 L 123/63 Blood Pressure Mean 82 83 Blood Pressure Position Pulse Oximetry 96 97 99 Oxygen Delivery Method Room Air Oxygen Flow Rate Sepsis Recent Fever Within 48 Hours Sepsis New/Unexplained Change in Mental Status Sepsis Action Taken by Nursing 04/11/22 14:18 04/11/22 14:25 04/11/22 14:31 Temperature Temperature Source Pulse Rate 69 73 Pulse Rate from SpO2 Sensor 73 Pulse Rhythm Pulse Strength Respiratory Rate 16 19 Respiratory Effort / Characteristics Respiratory Depth Blood Pressure 136/76 153/72 H Blood Pressure Mean 96 99 Blood Pressure Position Pulse Oximetry 98 Oxygen Delivery Method Oxygen Flow Rate Sepsis Recent Fever Within 48 Hours Sepsis New/Unexplained Change in Mental Status Sepsis Action Taken by Nursing 04/11/22 15:00 04/11/22 15:01 04/11/22 15:31 Temperature Temperature Source Pulse Rate 73 73 73 Pulse Rate from SpO2 Sensor 73 73 72 Pulse Rhythm Pulse Strength Respiratory Rate 14 16 28 H Respiratory Effort / Characteristics Respiratory Depth Blood Pressure 133/79 127/62 Blood Pressure Mean 97 83 Blood Pressure Position Pulse Oximetry 97 95 96 Oxygen Delivery Method Oxygen Flow Rate Sepsis Recent Fever Within 48 Hours Sepsis New/Unexplained Change in Mental Status Sepsis Action Taken by Nursing 04/11/22 16:00 04/11/22 16:01 Temperature Temperature Source Pulse Rate 72 73 Pulse Rate from SpO2 Sensor 72 73 Pulse Rhythm Pulse Strength Respiratory Rate 24 21 Respiratory Effort / Characteristics Respiratory Depth Blood Pressure 158/80 H Blood Pressure Mean 106 Blood Pressure Position Pulse Oximetry 94 95 Oxygen Delivery Method Oxygen Flow Rate Sepsis Recent Fever Within 48 Hours Sepsis New/Unexplained Change in Mental Status Sepsis Action Taken by Nursing General: Ill-appearing older female who appears in no acute distress, breathing comfortably on room air. Normal speech HEENT: Normal cephalic atraumatic. Pupils are equal round and reactive to light. Extraocular movements are intact. Oropharynx is pink with moist mucous membranes. No swelling of the mouth lips or tongue. Neck: Supple with a midline trachea. No meningeal signs or stiffness, no JVD or bruits. No Stridor. Chest: Clear to auscultation bilaterally. No wheezes or rhonchi. No increased work of breathing. Heart: Regular rate and rhythm without murmurs or gallops. Abdomen: Soft nontender, nondistended without rebound guarding or rigidity. Extremities: No cyanosis clubbing or edema. No calf tenderness or assymetry Spine/Back. Non tender to palpation. No CVA tenderness Skin: Good turgor without rashes. Neurologic exam: Cranial nerves two through 12 are intact. Motor and sensation are intact and symmetrical throughout. No Tremor. Course Administered Medications Discontinued Medications Sodium Chloride (Nss 1000ml) 250 mls @ 999 mls/hr IV .Q16M ONE Stop: 04/11/22 14:58 Last Admin: 04/11/22 15:57 Dose: 999 mls/hr Documented by: [id number] Ceftriaxone Sodium (Rocephin) 2,000 mg in 70 mls @ 140 mls/hr IV NOW STA Stop: 04/11/22 16:05 Last Admin: 04/11/22 15:57 Dose: 140 mls/hr Documented by: [id number] Medical Decision Making Differential Diagnosis Dehydration, medication side effect, UTI, sepsis, electrolyte or metabolic abnormality, cardiac disease, anemia, GI bleed Medical Records Attestation: I reviewed the patient's medical records. Home Medications Current Medication List: was personally reviewed by me Laboratory Data Attestation: I reviewed the patient's lab results. Result diagrams: 04/11/22 13:10 04/11/22 14:35 Lab Results 04/11/22 04/11/22 04/11/22 Range/Units 13:10 13:10 13:10 WBC 9.90 (4.8-10.8) K/uL RBC 3.84 L (4.2-5.4) M/uL Hgb 10.9 L (12.0-16.0) g/dL Hct 33.5 L (37-47) % MCV 87.2 (80-100) fL MCH 28.4 (25-34) pg MCHC 32.5 (32-36) g/dL RDW Std Deviation 48.5 H (36.4-46.3) fL RDW Coeff of Burak 15.1 H (11.5-14.5) % Plt Count 255 (130-400) K/uL MPV 10.0 (7.4-10.4) fL Immature Gran % (Auto) 0.3 % Neut % (Auto) 64.5 % Lymph % (Auto) 20.9 % [place] % (Auto) 9.8 % Eos % (Auto) 4.2 % Baso % (Auto) 0.3 % Neut # (Auto) 6.38 (1.4-6.5) K/uL Lymph # (Auto) 2.07 (1.2-3.4) K/uL [place] # (Auto) 0.97 H (0.11-0.59) K/uL Eos # (Auto) 0.42 (0-0.5) K/uL Baso # (Auto) 0.03 (0-0.2) K/uL Immature Gran # (Auto) 0.03 H (0.00-0.02) K/uL PT 11.0 (9.0-12.0) Seconds INR 1.0 (0.9-1.1) APTT 25.6 (21.0-31.0) Seconds PTT Ratio 0.9 Sodium 139 (136-145) mmol/L Potassium TNP Chloride 105 (98-107) mmol/L Carbon Dioxide 26 (21-32) mmol/L Anion Gap 8 (3-11) BUN 45 H (6-23) mg/dl Creatinine 1.36 H (0.6-1.2) mg/dl Est Cr Clr Drug Dosing 31.0 ml/min Est GFR ( Amer) 42.8 ml/min Est GFR (Non-Af Amer) 36.9 ml/min BUN/Creatinine Ratio 33.1 H (10-20) Glucose 100 H (70-99(Fasting)) mg/dl Lactate (0.4-2.0) mmol/L Calcium 8.4 L (8.5-10.1) mg/dl Magnesium Total Bilirubin 0.4 (0.2-1.0) mg/dl AST TNP ALT 13 (7-52) U/L Alkaline Phosphatase 71 (34-104) U/L Troponin I High Sens 4.9 D (0-14) pg/ml Total Protein 6.2 (6.0-8.3) gm/dl Albumin 3.6 (3.4-5.0) gm/dl Globulin 2.6 (2.5-4.0) gm/dl Albumin/Globulin Ratio 1.4 (0.9-2) Procalcitonin (0-0.5) ng/ml Urine Color Urine Appearance (Clear) Urine pH (4.5-7.5) Ur Specific Reagan (1.000-1.030) Urine Protein (Negative) Urine Glucose (UA) (Negative) Urine Ketones (Negative) Urine Blood (Negative) Urine Nitrite (Negative) Urine Bilirubin (Negative) Urine Urobilinogen (Negative) Ur Leukocyte Esterase (Negative) Urine WBC (Auto) (0-5) /hpf Urine RBC (Auto) (0-4) /hpf U Hyaline Cast (Auto) (0-5) /lpf U Epithel Cells (Auto) (0-5) /lpf Urine Bacteria (Auto) (Negative) 04/11/22 04/11/22 04/11/22 Range/Units 13:10 13:10 14:05 WBC (4.8-10.8) K/uL RBC (4.2-5.4) M/uL Hgb (12.0-16.0) g/dL Hct (37-47) % MCV (80-100) fL MCH (25-34) pg MCHC (32-36) g/dL RDW Std Deviation (36.4-46.3) fL RDW Coeff of Burak (11.5-14.5) % Plt Count (130-400) K/uL MPV (7.4-10.4) fL Immature Gran % (Auto) % Neut % (Auto) % Lymph % (Auto) % [place] % (Auto) % Eos % (Auto) % Baso % (Auto) % Neut # (Auto) (1.4-6.5) K/uL Lymph # (Auto) (1.2-3.4) K/uL [place] # (Auto) (0.11-0.59) K/uL Eos # (Auto) (0-0.5) K/uL Baso # (Auto) (0-0.2) K/uL Immature Gran # (Auto) (0.00-0.02) K/uL PT (9.0-12.0) Seconds INR (0.9-1.1) APTT (21.0-31.0) Seconds PTT Ratio Sodium (136-145) mmol/L Potassium Chloride (98-107) mmol/L Carbon Dioxide (21-32) mmol/L Anion Gap (3-11) BUN (6-23) mg/dl Creatinine (0.6-1.2) mg/dl Est Cr Clr Drug Dosing ml/min Est GFR ( Amer) ml/min Est GFR (Non-Af Amer) ml/min BUN/Creatinine Ratio (10-20) Glucose (70-99(Fasting)) mg/dl Lactate 1.1 (0.4-2.0) mmol/L Calcium (8.5-10.1) mg/dl Magnesium Cancelled Total Bilirubin (0.2-1.0) mg/dl AST ALT (7-52) U/L Alkaline Phosphatase (34-104) U/L Troponin I High Sens Cancelled (0-14) pg/ml Total Protein (6.0-8.3) gm/dl Albumin (3.4-5.0) gm/dl Globulin (2.5-4.0) gm/dl Albumin/Globulin Ratio (0.9-2) Procalcitonin 0.07 (0-0.5) ng/ml Urine Color Urine Appearance (Clear) Urine pH (4.5-7.5) Ur Specific Reagan (1.000-1.030) Urine Protein (Negative) Urine Glucose (UA) (Negative) Urine Ketones (Negative) Urine Blood (Negative) Urine Nitrite (Negative) Urine Bilirubin (Negative) Urine Urobilinogen (Negative) Ur Leukocyte Esterase (Negative) Urine WBC (Auto) (0-5) /hpf Urine RBC (Auto) (0-4) /hpf U Hyaline Cast (Auto) (0-5) /lpf U Epithel Cells (Auto) (0-5) /lpf Urine Bacteria (Auto) (Negative) 06/15/22 06/15/22 Range/Units 14:21 14:35 WBC (4.8-10.8) K/uL RBC (4.2-5.4) M/uL Hgb (12.0-16.0) g/dL Hct (37-47) % MCV (80-100) fL MCH (25-34) pg MCHC (32-36) g/dL RDW Std Deviation (36.4-46.3) fL RDW Coeff of Burak (11.5-14.5) % Plt Count (130-400) K/uL MPV (7.4-10.4) fL Immature Gran % (Auto) % Neut % (Auto) % Lymph % (Auto) % [place] % (Auto) % Eos % (Auto) % Baso % (Auto) % Neut # (Auto) (1.4-6.5) K/uL Lymph # (Auto) (1.2-3.4) K/uL [place] # (Auto) (0.11-0.59) K/uL Eos # (Auto) (0-0.5) K/uL Baso # (Auto) (0-0.2) K/uL Immature Gran # (Auto) (0.00-0.02) K/uL PT (9.0-12.0) Seconds INR (0.9-1.1) APTT (21.0-31.0) Seconds PTT Ratio Sodium (136-145) mmol/L Potassium 4.1 Chloride (98-107) mmol/L Carbon Dioxide (21-32) mmol/L Anion Gap (3-11) BUN (6-23) mg/dl Creatinine (0.6-1.2) mg/dl Est Cr Clr Drug Dosing ml/min Est GFR ( Amer) ml/min Est GFR (Non-Af Amer) ml/min BUN/Creatinine Ratio (10-20) Glucose (70-99(Fasting)) mg/dl Lactate (0.4-2.0) mmol/L Calcium (8.5-10.1) mg/dl Magnesium 1.8 Total Bilirubin (0.2-1.0) mg/dl AST 19 ALT (7-52) U/L Alkaline Phosphatase (34-104) U/L Troponin I High Sens (0-14) pg/ml Total Protein (6.0-8.3) gm/dl Albumin (3.4-5.0) gm/dl Globulin (2.5-4.0) gm/dl Albumin/Globulin Ratio (0.9-2) Procalcitonin (0-0.5) ng/ml Urine Color Yellow Urine Appearance Clear (Clear) Urine pH 5.0 (4.5-7.5) Ur Specific Reagan 1.013 (1.000-1.030) Urine Protein Negative (Negative) Urine Glucose (UA) Negative (Negative) Urine Ketones Negative (Negative) Urine Blood Negative (Negative) Urine Nitrite Negative (Negative) Urine Bilirubin Negative (Negative) Urine Urobilinogen Negative (Negative) Ur Leukocyte Esterase 2+ H (Negative) Urine WBC (Auto) 5-10 H (0-5) /hpf Urine RBC (Auto) 0-4 (0-4) /hpf U Hyaline Cast (Auto) 1-5 (0-5) /lpf U Epithel Cells (Auto) >30 H (0-5) /lpf Urine Bacteria (Auto) 4+ H (Negative) Imaging Data Attestation: I personally reviewed and interpreted this imaging study as follows: My Impression: Chest X-rayno acute infiltrate, failure, pneumothorax seen Radiologist's Impression: Chest X-Ray 04/11/22 13:25 XR chest 1V portable CLINICAL HISTORY: SEPSIS COMPARISON STUDY: Chest radiograph March 14, 2022. FINDINGS: Degenerative changes of both shoulders are incidentally noted. Multilevel spinal fusion is noted. There is no pneumothorax or pleural effusion. Multiple old right rib fractures are noted. Cardiomegaly is unchanged. No evidence for pulmonary edema. Interstitial thickening and opacity shown on prior exam have resolved. Minimal bibasilar opacities favor atelectasis. No consolidation to suggest pneumonia. IMPRESSION: No acute cardiopulmonary findings. ACT 112: Negative or not required by law. Electronically signed by: Segundo Perdomo M.D. 04/11/2022 2:31 PM ECG Data Attestation: I personally reviewed and interpreted this ECG as follows: Indication: + weakness Rate (beats per minute): 68 Rhythm: + normal sinus ECG Intervals/blocks: + First degree AV block, + Left anterior fascicular block and + Normal QT ECG [place]: + Left axis deviation ECG ST segments: + Normal ST segments ECG Findings: no PACs or no PVCs Comparison ECG Date: from (03/14/22) Change: no significant change MDM Narrative This patient comes in as described above. She was placed in room A9 on a c ardiac monitor. She is here for treatment evaluation of hypotension. She was normotensive when she arrived she looks well she has a normal neurologic exam, she is afebrile. She has a complex medical history in light of this I did a full sepsis type work-up. EKG does not suggest acute coronary syndrome or arrhythmia. Chest x-ray is unremarkable. Her troponin is not elevated. Her BUN and creatinine are elevated and may be that she is dry. She has no fever or white count to suggest infection. Procalcitonin and lactic acid are also within normal limits. Analysis does suggest a UTI. Additionally her BUN and creatinine are elevated. I do think she needs IV antibiotics and IV fluids and monitoring overnight. Particular in light of her being hypotensive at home. She is also living independently as her daughter is out of town and is concerned about going home. I did consult the hospitalist to see in the ER for these measures. Continous cardiac monitoring: Orders placed in EMR for continuous cardiac monitoring. Upon my interpretation the patient was noted to be in normal sinus rhythm with a rate of 70 Impression & Plan Hypotension, Weakness, Acute renal insufficiency, Acute UTI (urinary tract infection), Lab test negative for COVID-19 virus Discharge Plan Visit Data Chief Complaint: Hypotension ED Provider: Rob Levin Discharge Problem: Hypotension, Weakness, Acute renal insufficiency, Acute UTI (urinary tract infection), Lab test negative for COVID-19 virus Forms Stand Alone Forms: My [facility] Prescriptions Prescriptions: No Action (DME) lancets [Accu-Chek Softclix Lancets] Misc See Rx Instructions .ROUTE .MEDSUPPLY Qty: 100 RF: 0 (DME) OneTouch Verio test strips Strip See Rx Instructions .ROUTE .MEDSUPPLY Qty: 200 RF: 5 diclofenac sodium 1 % gel 2 g topical BID Qty: 100 RF: 2 Bydureon BCise 2 mg/0.85 mL auto-injector 2 mg subcut Q7D Qty: 3.4 RF: 2 oxycodone-acetaminophen [Percocet] 10-325 mg tablet 1 tab PO Q6H PRN (Reason: pain) Qty: 120 RF: 0 furosemide 80 mg tablet 80 mg PO QAM Qty: 90 RF: 1 oxybutynin chloride 5 mg tablet extended release 24hr 5 mg PO DAILY Qty: 30 RF: 3 aspirin [Adult Low Dose Aspirin] 81 mg tablet,delayed release (DR/EC) 81 mg PO QAM RF: 0 (DME) pen needle, diabetic [BD Ultra-Fine Kim Pen Needle] 32 gauge x 5/32" needle See Rx Instructions .ROUTE .MEDSUPPLY Qty: 400 RF: 3 fluticasone propionate 50 mcg/actuation spray,suspension 1 spray INTRANASAL DAILY PRN (Reason: Allergy Symptoms) RF: 0 loratadine 10 mg tablet 10 mg PO HS RF: 0 albuterol sulfate 90 mcg/actuation HFA aerosol inhaler 2 puff INHALATION Q4 PRN (Reason: cough,sob,wheeze) RF: 0 insulin aspart U-100 [Novolog Flexpen U-100 Insulin] 100 unit/mL (3 mL) insulin pen 2 unit SUBCUT TIDM MDD 16 RF: 0 Levemir FlexTouch U-100 Insuln 100 unit/mL (3 mL) insulin pen 8 unit SUBCUT QPM MDD 16 RF: 0 isosorbide mononitrate 30 mg tablet extended release 24 hr 30 mg PO QAM RF: 0 spironolactone 25 mg tablet 25 mg PO QAM RF: 0 lisinopril 40 mg tablet 40 mg PO QAM RF: 0 Hold Instructions: low bp pregabalin 200 mg capsule 200 mg PO TID RF: 0 levothyroxine 100 mcg tablet 100 mcg PO DAILYBB RF: 0 famotidine 20 mg tablet 20 mg PO QPM RF: 0 pantoprazole 40 mg tablet,delayed release (DR/EC) 40 mg PO QAM RF: 0 metoprolol tartrate 50 mg tablet See Rx Instructions .ROUTE .COMPLEX RF: 0 montelukast 10 mg tablet 10 mg PO HS RF: 0 rosuvastatin 20 mg tablet 20 mg PO HS RF: 0 Referrals Referrals: Joan Blackmon DO [Primary Care Provider] - Discharge Problem: Hypotension Qualifiers: Hypotension type: unspecified hypotension type Qualified Code(s): I95.9 - Hypotension, unspecified
[2022-04-11 13:33] LABS: Basophils # (auto) 0.03 K/uL (0-0.2); Basophils % (auto) 0.3 %; Eosinophils # (auto) 0.42 K/uL (0-0.5); Eosinophils % (auto) 4.2 %; Hematocrit (blood only) 33.5 % (37-47); Hemoglobin 10.9 g/dL (12.0-16.0); Immature Granulocytes # (auto) 0.03 K/uL (0.00-0.02); Immature Granulocytes % (auto) 0.3 %; Lymphocytes # (auto) 2.07 K/uL (1.2-3.4); Lymphocytes % (auto) 20.9 %; Mean Corpuscular Hemoglobin 28.4 pg (25-34); Mean Corpuscular Hgb Conc 32.5 g/dL (32-36); Mean Corpuscular Volume 87.2 fL (80-100); Monocytes # (auto) 0.97 K/uL (0.11-0.59); Monocytes % (auto) 9.8 %; Neutrophils # (auto) 6.38 K/uL (1.4-6.5); Neutrophils % (auto) 64.5 %; Platelet Count 255 K/uL (130-400); RDW Coefficient of Variation 15.1 % (11.5-14.5); RDW Standard Deviation 48.5 fL (36.4-46.3); Red Blood Count 3.84 M/uL (4.2-5.4)
[2022-04-11 13:47] LABS: Partial Thromboplastin Ratio 0.9; Partial Thromboplastin Time 25.6 Seconds (21.0-31.0)
[2022-04-11 13:55] LABS: Troponin I High Sensitivity 4.9 pg/ml (0-14)
[2022-04-11 14:13] LABS: Alanine Aminotransferase 13 U/L (7-52); Albumin Globulin Ratio 1.4 (0.9-2); Albumin Level 3.6 gm/dl (3.4-5.0); Alkaline Phosphatase 71 U/L (34-104); Anion Gap 8 (3-11); BUN Creatinine Ratio 33.1 (10-20); Bilirubin,Total 0.4 mg/dl (0.2-1.0); Blood Urea Nitrogen 45 mg/dl (6-23); Calcium 8.4 mg/dl (8.5-10.1); Carbon Dioxide 26 mmol/L (21-32); Chloride 105 mmol/L (98-107); Est GFR (African American) 42.8 ml/min; Est GFR (Non-African American) 36.9 ml/min; Globulin 2.6 gm/dl (2.5-4.0); Glucose 100 mg/dl (70-99(Fasting)); Sodium 139 mmol/L (136-145); Total Protein 6.2 gm/dl (6.0-8.3)
--- NOTE | 2022-04-11 14:32 | XRay Report ---
XR chest 1V portable CLINICAL HISTORY: SEPSIS COMPARISON STUDY: Chest radiograph March 14, 2022. FINDINGS: Degenerative changes of both shoulders are incidentally noted. Multilevel spinal fusion is noted. There is no pneumothorax or pleural effusion. Multiple old right rib fractures are noted. Card iomegaly is unchanged. No evidence for pulmonary edema. Interstitial thickening and opacity shown on prior exam have resolved. Minimal bibasilar opacities favor atelectasis. No consolidation to suggest pneumonia. IMPRESSION: No acute cardiopulmonary findings. ACT 112: Negative or not required by law. Electronically signed by: Segundo Perdomo M.D. 04/11/2022 2:31 PM
[2022-04-11] MEDS ORDERED: SODIUM CHLORIDE 0.9% 1000ML 250 ML IV ONE (14:43)
[2022-04-11 15:15] LABS: Appearance Urine Clear (Clear); Bacteria Urine Automated 4+ (Negative); Bilirubin Urine Negative (Negative); Blood Urine Negative (Negative); Color Urine Yellow; Epithelial Cell Urine Auto >30 /lpf (0-5); Glucose Urine UA Negative (Negative); Ketones Urine Negative (Negative); Leukocyte Esterase Urine 2+ (Negative); Nitrite Urine Negative (Negative); Protein Urine Negative (Negative); RBC Urine Automated 0-4 /hpf (0-4); Specific Gravity Urine 1.013 (1.000-1.030); Urobilinogen Urine Negative (Negative)
[2022-04-11 15:16] LABS: Magnesium 1.8 mg/dl (1.7-2.4); Potassium 4.1 mmol/L (3.5-5.1)
[2022-04-11] MEDS ORDERED: cefTRIAXone SODIUM 2,000 MG in DEXTROSE 5% 50 ML IV STA (15:34)
[2022-04-11] MEDS ORDERED: cefTRIAXone SODIUM 2,000 MG/70 ML BAG IV STA (15:36)
--- NOTE | 2022-04-11 16:38 | History & Physical Report ---
Date of Service April 11, 2022 Assessment & Plan (1) UTI (urinary tract infection): Plan: Previously treated with pansensitive E.COLI in beginning of March - UA with 4+ Bacteria, LE+, Nit neg, WBC 5-10- await culture - No WBC, without elevated NLR, PCT 0.07 and negative lactate, CRP 0.71 - Possible that not completely cleared await culture (2) HTN (hypertension): Plan: Patient arrived hypotensive and responded to very little volume - she states that she did take her medications this morning- spironolactone, metoprolol, and lisinopril - will hold her lisinopril follow renal function - Metoprolol decreased to 25mg BID now- was on split dose of bid dosing- 50 in am and 25 at PM - Hold 80mg of Lasix (3) Chronic diastolic CHF (congestive heart failure): Plan: As above (4) Hypothyroidism: Plan: Continue with syntroid 100mcg (5) MONROE (obstructive sleep apnea): Plan: Does not wear device (6) CAD (coronary artery disease): Plan: As above- continue ASA, BB, statin (7) DM type 2 (diabetes mellitus, type 2): Plan: Continue basal insulin equivalent - sliding scale aspart- CF 35 carb ration 1:12 (8) CKD (chronic kidney disease) stage 3, GFR 30-59 ml/min: Plan: PITA II-III on CKD Over the past month JACQUARD LOOM FIXER above 1.5- in Nov was .8 - medication adjustment possibly with overdiuresing is possible (9) HLD (hyperlipidemia): Plan: Continue statin History of Present Illness Primary Care Provider: Joan Blackmon, DO 77 YOF with medical history of: DMII (on insulin), seasonal allergies, HTN, CAD, HFpEF, CKD, COPD, DJD, Depression, HLD, Hypothyroidism, MONROE, RA. Patient comes to the EMD today for complaints of feeling increase fatigue and diarrhea, she was noted to be hypotensive. She had routine labs performed to include Lactate, PCT. She had blood culture and UA with culture performed. She was given 500ml of NS and her blood pressures improved. She was noted on her labs to have increased JACQUARD LOOM FIXER, her WBC are not elevated, PCT and Lactate are negative. Patient states she finished her antibiotics as prescribed and her symptoms improved and she was feeling better up until about 2-3 days ago where she felt fatigued again. She denies any nasal congestion, sore throat, back pain, or abdominal pain. She was started on Rocephin. Patient will be observed overnight, continue with abx while cultures are pending. She will be given LR overnight x1 liter and follow renal function in the morning. COVID test on admission is: NEGATIVE Allergies Allergy/AdvReac Type Severity Reaction Status Date / Time carvedilol AdvReac Mild Heart Verified 04/11/22 17:00 racing Home Medications Medication Instructions Recorded Confirmed Type fluticasone propionate 50 1 spray INTRANASAL DAILY PRN 12/01/19 04/11/22 History mcg/actuation nasal spray,suspension lancets (Accu-Chek Softclix #100 ea 11/02/20 04/10/22 Rx Lancets) blood sugar diagnostic (OneTouch #200 ea 05/02/21 04/10/22 Rx Verio test strips) diclofenac sodium 1 % topical gel 2 g TOPICAL BID #100 g 06/28/21 04/11/22 Rx aspirin 81 mg tablet,delayed 81 mg PO QAM 08/01/21 04/11/22 History release (Adult Low Dose Aspirin) loratadine 10 mg tablet 10 mg PO HS 11/30/21 04/11/22 History oxybutynin chloride 5 mg 5 mg PO DAILY #30 tab 12/19/21 04/11/22 Rx tablet,extended release 24 hr pen needle, diabetic 32 gauge x #400 ea 03/06/22 04/10/22 Rx 5/32" (BD Ultra-Fine Kim Pen Needle) exenatide microspheres 2 mg/0.85 2 mg SUBCUT Q7D #3.4 ml 03/12/22 04/11/22 Rx mL subcutaneous auto-injector (BydureFoodBuzz BCise) albuterol sulfate 90 mcg/actuation 2 puff INHALATION Q4 PRN 03/14/22 04/11/22 History aerosol inhaler famotidine 20 mg tablet 20 mg PO QPM 03/14/22 04/11/22 History insulin aspart U-100 100 unit/mL 2 unit SUBCUT TIDM MDD 16 03/14/22 04/11/22 History (3 mL) subcutaneous pen (Novolog Flexpen U-100 Insulin aspart) insulin detemir U-100 100 unit/mL 8 unit SUBCUT QPM MDD 16 03/14/22 04/11/22 History (3 mL) subcutaneous pen (Levemir FlexTouch U-100 Insulin) isosorbide mononitrate 30 mg 30 mg PO QAM 03/14/22 04/11/22 History tablet,extended release 24 hr levothyroxine 100 mcg tablet 100 mcg PO DAILYBB 03/14/22 04/11/22 History lisinopril 40 mg tablet 40 mg PO QAM 03/14/22 04/11/22 History metoprolol tartrate 50 mg tablet See Rx Instructions .ROUTE .COMPLEX 03/14/22 04/11/22 History montelukast 10 mg tablet 10 mg PO HS 03/14/22 04/11/22 History pantoprazole 40 mg tablet,delayed 40 mg PO QAM 03/14/22 04/11/22 History release pregabalin 200 mg capsule 200 mg PO TID 03/14/22 04/11/22 History rosuvastatin 20 mg tablet 20 mg PO HS 03/14/22 04/11/22 History spironolactone 25 mg tablet 25 mg PO QAM 03/14/22 04/11/22 History oxycodone-acetaminophen 10 mg-325 1 tab PO Q6H PRN #120 tab 03/22/22 04/11/22 Rx mg tablet (Percocet) furosemide 80 mg tablet 80 mg PO QAM #90 tab 03/29/22 04/11/22 Rx Past Med/Surg History Medical History Acute pyelonephritis LEN (acute kidney injury) Aspiration pneumonitis see hospitalization records from 12/01/2019. "concern for aspiration", 12/02/2019, "no evidence of aspiration." CAD (coronary artery disease) Mild, non obstructive disease per 2013 cardiac cath Cervical post-laminectomy syndrome Chronic diastolic CHF (congestive heart failure) follows with Dr. DANK VEGA with [facility] Chronic pain CKD (chronic kidney disease) stage 3, GFR 30-59 ml/min Under surveillance by PCP COPD (chronic obstructive pulmonary disease) chronic ROQUE Degenerative joint disease (DJD) of hip Depression controlled without meds DM type 2 (diabetes mellitus, type 2) IDDM GERD (gastroesophageal reflux disease) Diet related, controlled and stable per pt HLD (hyperlipidemia) HTN (hypertension) controlled, stable per pt Hypothyroidism Lumbar disc herniation with radiculopathy Lumbar post-laminectomy syndrome Moderate mitral regurgitation Myocardial Infarction Told "silent heart attack" several years ago No pertinent family history Obesity MONROE (obstructive sleep apnea) Cannot tolerate device PUD (peptic ulcer disease) follows with GI Pulmonary hypertension per cardio records Rheumatoid arthritis Temporomandibular joint disorder + clicking, no locking Surgical History H/O cataract extraction bilat H/O excision of lamina of cervical vertebra for decompression of spinal cord [address] Carreno History of back surgery lumbar fusion L3-L4 decompression/fusion (06/09/20): Grade view 1, MAC#3, ETT 7 at [facility] > ROM side to side limited per pt History of breast biopsy right History of cardiac cath (08/2013) 2012 - mild, non obstructive disease > no stents History of colonoscopy History of esophagogastroduodenoscopy (EGD) (~2014) with Dr. Rowan History of foot surgery right > toe overlap correction History of gastrointestinal procedure (~2015) EUS History of hysterectomy History of tonsillectomy and adenoidectomy History of total right knee replacement (02/2021) SAB at L3-L4 3 attempts. Anesthesia postop progress note: patient started complaining of left shoulder pain radiating to her left breast. She does have a history of left shoulder pain however she states it usually goes down her arm and not into her chest. Her pain does not appear cardiogenic in nature as it is characterized as sharp and is reproducible by palpating her chest. She denies nausea and shortness of breath. An ECG was done and did not show any ischemic changes. A troponin was drawn. Dr. Arias will follow up on the troponin results and update the medicine team who will be following the patient on the floor. Initial troponin negative. Patient ok to go to telemetry for further management. Hx of blepharoplasty bilat No pertinent past surgical history S/P epidural steroid injection S/P ORIF (open reduction internal fixation) fracture (06/26/21) R patellar fracture. Glidescope#3, ETT#7.5 + PNB. Anesthesia postop progress note: pain being managed with dilaudid, fentanyl, nerve block, and percocet. Despite this she continues to rate pain at a 9/10. We have also been unable to wean patient off of oxygen due to being somnolent from narcotics. Pt also states that she will be home alone tonight, but that a friend can check in on her. At this point we will reach out to the primary team and enquire about a possible overnight admission for pain management and oxygen. Family History Grandmother (Maternal) Family history of diabetes mellitus Grandfather (Maternal) Family history of diabetes mellitus Mother Family history of diabetes mellitus Son Family history of diabetes mellitus Other Heart disease No family history of adverse response to anesthesia Stroke Denies family history of Ovarian cancer Prostate cancer Myocardial infarction Breast cancer Colorectal cancer Social History Smoking Status: Never smoker Second Hand Exposure: Yes (FAMILY SMOKED); Hx Alcohol Use: Yes Alcohol type: wine Hx Substance Use: No Preferred Language: Ivorian Communication Ability: Effective Visual Impairment: No Limitations Hearing Ability: Use of Hearing Aid Water Fitness Instructor Required: No Beliefs That Will Affect Care: None marital status: Current Living Situation: Alone Current Living Situation Comment: receives home health 2X A WEEK current occupational status: retired How many Children do You have: 3 Other Information That Helps Us Care for You: No Feels Safe at Home: Yes Safety Concerns: Feels Safe At This Time Childhood Exposure to Second-Hand Smoke: Yes Diet Comment: does not follow a diet caffeine: No during the past year weight has: remained stable Dental Care, Regularly: No Physical Activity Frequency: Other Seatbelt Use: always Sunscreen Use: Yes Assistive Devices: Cane, Denture - Upper, Denture - Lower, Glasses, Hearing Aid - Left and Hearing Aid - Right Assistive Devices Comment: hearing aides at home Review of Systems Review of Systems: REVIEW OF SYSTEMS: Constitutional: (+) fatigue, No fever, sweats or chills Eyes: No diplopia, no worsening or blurred vision ENT: normal hearing, no trouble swallowing Respiratory: (+) cough, No sputum, dyspnea at rest or on exertion Cardiovascular: No chest pain, tightness or palpitations Abdomen: (+) diarrhea, No pain, nausea, vomiting, or constipation Musculoskeletal: (+) left shoulder pain, NO calf pain, swelling Neurologic: No weakness, numbness/tingling, or balance problems Psychiatric: No anxiety or depression Skin: No rash or itch Physical Exam Physical Exam: PHYSICAL EXAM: General: awake, alert, no apparent distress Head: Normocephalic, atraumatic ENT: PERRL, EOMI, no pharyngeal exudate, mucous membranes moist Neuro: AAO x 3, speech clear and appropriate, strength intact bilaterally 5/5, sensation intact and equal all extremities and dermatomes, no pronator drift Chest: equal rise and fall of the chest, no accessory muscle use, no heaves or thrills, Clear to auscultation, on room air, Cardiac: Regular rate and rhythm, telemetry reviewed, skin warm dry, cap refill <3 seconds, peripheral pulses +2 no JVD, no murmur, no edema GI: NABS x 4 quadrants, soft, nontender to palpation, no rebound, guarding or tenderness : Spontaneously voiding, no pain, no CVA tenderness, Extremities: Normal inspection, no peripheral edema or erythema, calfs nontender to palpation Psych: Normal mood and affect Skin: no rash or erythema Results & Data Results & Data ([facility]) Vital Signs (Past 12 Hours) Vital Signs Temp Pulse Resp BP Pulse Ox 04/11/22 16:01 73 21 158/80 H 95 04/11/22 16:00 72 24 94 04/11/22 15:31 73 28 H 127/62 96 04/11/22 15:01 73 16 133/79 95 04/11/22 15:00 73 14 97 04/11/22 14:31 73 19 153/72 H 98 04/11/22 14:25 136/76 04/11/22 14:18 69 16 04/11/22 14:00 69 18 123/63 99 04/11/22 13:37 69 17 137/55 L 97 04/11/22 13:14 96 04/11/22 13:00 65 12 96 04/11/22 12:54 36.7 C 66 20 124/66 96 04/11/22 12:52 69 25 H 124/66 96 Laboratory Results Abnormal lab results 04/11/22 04/11/22 04/11/22 Range/Units 13:10 13:10 14:21 RBC 3.84 L (4.2-5.4) M/uL Hgb 10.9 L (12.0-16.0) g/dL Hct 33.5 L (37-47) % RDW Std Deviation 48.5 H (36.4-46.3) fL RDW Coeff of Burak 15.1 H (11.5-14.5) % [place] # (Auto) 0.97 H (0.11-0.59) K/uL Immature Gran # (Auto) 0.03 H (0.00-0.02) K/uL BUN 45 H (6-23) mg/dl Creatinine 1.36 H (0.6-1.2) mg/dl BUN/Creatinine Ratio 33.1 H (10-20) Glucose 100 H (70-99(Fasting)) mg/dl Calcium 8.4 L (8.5-10.1) mg/dl Ur Leukocyte Esterase 2+ H (Negative) Urine WBC (Auto) 5-10 H (0-5) /hpf U Epithel Cells (Auto) >30 H (0-5) /lpf Urine Bacteria (Auto) 4+ H (Negative) Diagnostic Findings Chest X-Ray 04/11/22 13:25 XR chest 1V portable CLINICAL HISTORY: SEPSIS COMPARISON STUDY: Chest radiograph March 14, 2022. FINDINGS: Degenerative changes of both shoulders are incidentally noted. Multilevel spinal fusion is noted. There is no pneumothorax or pleural effusion. Multiple old right rib fractures are noted. Cardiomegaly is unchanged. No evidence for pulmonary edema. Interstitial thickening and opacity shown on prior exam have resolved. Minimal bibasilar opacities favor atelectasis. No consolidation to suggest pneumonia. IMPRESSION: No acute cardiopulmonary findings. ACT 112: Negative or not required by law. Electronically signed by: Segundo Perdomo M.D. 04/11/2022 2:31 PM Medications Administered Discontinued Medications Sodium Chloride (Nss 1000ml) 250 mls @ 999 mls/hr IV .Q16M ONE Stop: 04/11/22 14:58 Last Admin: 04/11/22 15:57 Dose: 999 mls/hr Documented by: [id number] Ceftriaxone Sodium (Rocephin) 2,000 mg in 70 mls @ 140 mls/hr IV NOW STA Stop: 04/11/22 16:05 Last Admin: 04/11/22 15:57 Dose: 140 mls/hr Documented by: [id number] Home Medications fluticasone propionate 50 mcg/actuation nasal spray,suspension 1 spray INTRANASAL DAILY PRN 12/01/19 [History Confirmed 04/10/22] lancets (Accu-Chek Softclix Lancets) #100 ea 11/02/20 [Rx Confirmed 04/10/22] blood sugar diagnostic (OneTouch Verio test strips) #200 ea 05/02/21 [Rx Confirmed 04/10/22] diclofenac sodium 1 % topical gel 2 g TOPICAL BID #100 g 06/28/21 [Rx Confirmed 04/10/22] aspirin 81 mg tablet,delayed release (Adult Low Dose Aspirin) 81 mg PO QAM 08/01/21 [History Confirmed 04/10/22] loratadine 10 mg tablet 10 mg PO HS 11/30/21 [History Confirmed 04/10/22] oxybutynin chloride 5 mg tablet,extended release 24 hr 5 mg PO DAILY #30 tab 12/19/21 [Rx Confirmed 04/10/22] pen needle, diabetic 32 gauge x 5/32" (BD Ultra-Fine Kim Pen Needle) #400 ea 03/06/22 [Rx Confirmed 04/10/22] exenatide microspheres 2 mg/0.85 mL subcutaneous auto-injector (Bydureon BCise) 2 mg SUBCUT Q7D #3.4 ml 03/12/22 [Rx Confirmed 04/10/22] albuterol sulfate 90 mcg/actuation aerosol inhaler 2 puff INHALATION Q4 PRN 03/14/22 [History Confirmed 04/10/22] famotidine 20 mg tablet 20 mg PO QPM 03/14/22 [History Confirmed 04/10/22] insulin aspart U-100 100 unit/mL (3 mL) subcutaneous pen (Novolog Flexpen U-100 Insulin aspart) 2 unit SUBCUT TID MDD 16 03/14/22 [History Confirmed 04/10/22] insulin detemir U-100 100 unit/mL (3 mL) subcutaneous pen (Levemir FlexTouch U- 100 Insulin) 8 unit SUBCUT QPM MDD 16 03/14/22 [History Confirmed 04/10/22] isosorbide mononitrate 30 mg tablet,extended release 24 hr 30 mg PO QAM 03/14/22 [History Confirmed 04/10/22] levothyroxine 100 mcg tablet 100 mcg PO DAILYBB 03/14/22 [History Confirmed 04/10/22] lisinopril 40 mg tablet 40 mg PO QAM 03/14/22 [History Confirmed 04/10/22] metoprolol tartrate 50 mg tablet See Rx Instructions .ROUTE .COMPLEX 03/14/22 [History Confirmed 04/10/22] montelukast 10 mg tablet 10 mg PO HS 03/14/22 [History Confirmed 04/10/22] pantoprazole 40 mg tablet,delayed release 40 mg PO QAM 03/14/22 [History Confirmed 04/10/22] pregabalin 200 mg capsule 200 mg PO TID 03/14/22 [History Confirmed 04/10/22] rosuvastatin 20 mg tablet 20 mg PO HS 03/14/22 [History Confirmed 04/10/22] spironolactone 25 mg tablet 25 mg PO QAM 03/14/22 [History Confirmed 04/10/22] oxycodone-acetaminophen 10 mg-325 mg tablet (Percocet) 1 tab PO Q6H PRN #120 tab 03/22/22 [Rx Confirmed 04/10/22] furosemide 80 mg tablet 80 mg PO QAM #90 tab 03/29/22 [Rx Confirmed 04/10/22] ECG Additional Comments: Sinus rhythm with 1st degree A-V block Left anterior fascicular block Septal infarct , age undetermined Abnormal ECG When compared with ECG of 14-MAR-2022 19:20, CO interval has increased Septal infarct is now Present Code Status & VTE Plan Code Status CODE: FULL VTE: SCDs, Heparin 5000 units sub q q12 VTE Prophylaxis Plan VTE Prophylaxis will be ordered: Yes Supervising Physician Co-Signing Physician Notes I personally saw and examined the patient. I verified all douglas points and agree with AYAKA Madrigal with the following exceptions and/or additions: 77 year old female admission due to hypotension, sent from PCP office despite reduce her antihypertensives. Urinary frequency, fatigue, generalized weakness, diarrhea. Also having significant benign essential tremor getting much worse since January. O/E A&Ox3, HS 1+2, 2/6 GUY LUSB, Chest CTAB, Abdo SNT, No CVA tenderness A/P Hypotension - agree with holding antihypertensives above but monitor closely for pulmonary edema. UTI - symptom of urinary frequency. Recently diagnosed with pansensitive E. coli in February. Ceftriaxone 2g IV daily. Benign essential tremor - ?worsening with current UTI. If not improvement with antibiotics consider further workup. Otherwise as above. PG Care Time/CCT Total # of Minutes Spent Total Time Spent with Patient: Total time spent is greater than 50% in coordination of care (as documented) at patient's floor/unit and/or counseling patient: Coding Level of Care Code INT OBSERVATION CARE 50M LVL 2 Diagnoses UTI (urinary tract infection) N39.0 Hypothyroidism E03.9 HTN (hypertension) I10 MONROE (obstructive sleep apnea) G47.33 Chronic diastolic CHF (congestive heart failure) I50.32 CAD (coronary artery disease) I25.10 DM type 2 (diabetes mellitus, type 2) E11.9 CKD (chronic kidney disease) stage 3, GFR 30-59 ml/min N18.3 HLD (hyperlipidemia) E78.5
--- NOTE | 2022-04-11 17:41 | Electrocardiogram Report ---
Test Reason : Blood Pressure : / mmHG Vent. Rate : 068 BPM Atrial Rate : 068 BPM P-R Int : 218 ms QRS Dur : 114 ms QT Int : 414 ms P-R-T Axes : 079 -48 007 degrees QTc Int : 440 ms Sinus rhythm with 1st degree A-V block Left anterior fascicular block Poor R wave progression, consider anterior UT vs. lead placement vs. LVH Abnormal ECG When compared with ECG of 14-MAR-2022 19:20, MA interval has increased Septal infarct is now Present Confirmed by Guillermo Calles ([id number]) on 04/11/2022 5:41:08 PM Referred By: Confirmed By:Teo Calles
[2022-04-11] MEDS ORDERED: GLUCAGON FOR INJ 1 MG VIAL SQ PRN (20:02)
[2022-04-11] MEDS ORDERED: GLUCOSE 40% GEL 15 GM TUBE PO PRN (20:02)
[2022-04-11] MEDS ORDERED: POLYETHYLENE (MIRALAX) 17 GM PACK PO PRN (20:02)
[2022-04-11] MEDS ORDERED: DEXTROSE 50% 50 ML SYRINGE IV PRN (20:02)
[2022-04-11] MEDS ORDERED: CARBOHYDRATES FOR HYPOGLYCEMIA PO PRN (20:02)
[2022-04-11] MEDS ORDERED: GLUCOSE 10 TABS/TUBE PO PRN (20:02)
[2022-04-11] MEDS ORDERED: FLUTICASONE PROPIONATE NA SPR 16 GM BTL NAE PRN (21:09)
[2022-04-11] MEDS ORDERED: ALBUTEROL HFA 8 GM INHALER INH PRN (21:09)
[2022-04-11] MEDS: HEPARIN SOD 5,000 UNIT/0.5 ML VIAL SQ SCH (21:26)
[2022-04-11] MEDS: INSULIN ASPART PER UNIT SC SCH ×2 (21:27→22:36)
[2022-04-11] MEDS: METOPROLOL TARTRATE 25 MG TAB PO SCH (22:37)
[2022-04-11] MEDS ORDERED: oxyCODONE/ACETAMINOPHEN 5mg/325mg TAB PO ONE (23:48)
[2022-04-12] MEDS ORDERED: HYDROmorphone INJ 0.5 MG/0.5 ML SYR IV STA (03:18)
[2022-04-12] MEDS: DICLOFENAC SOD 1% GEL 100 GM TUBE EXT PRN ×2 (04:13→23:31)
[2022-04-12] MEDS: oxyCODONE/ACETAMINOPHEN 5mg/325mg TAB PO PRN ×2 (05:56→20:03)
[2022-04-12] MEDS ORDERED: LEVOTHYROXINE SODIUM 100 MCG TABLET PO SCH (06:30)
--- NOTE | 2022-04-12 08:14 | Hospitalist Progress Note ---
Date of Service April 12, 2022 Assessment & Plan (1) UTI (urinary tract infection): Plan: Previously treated with pansensitive E.COLI in February with cefdinir Procal 0.07, lactic wnl, CRP 0.71 Placed on ceftriaxone IV daily Urine cx gram negative bacilli -- monitor Monitor blood cultures Remains afebrile, WBC wnl Continued inpatient stay (2) HTN (hypertension): Plan: Patient arrived hypotensive and responded to very little volume 250cc BP stable -Remains on spironolactone, metoprolol -Holding lisinopril, lasix this AM given LEN on admission, resolved on repeat and resume in AM Metoprolol decreased to 25mg BID for now (typically on 50mg QAM, 25mg QPM) Does have history of diastolic HF per cardiology report from March 2021 but does not appear to be overloaded at this time Monitor (3) Chronic diastolic CHF (congestive heart failure): Plan: As above not overloaded currently, resuming lasix/lisinopril for AM given LEN resolved Monitor (4) Hypothyroidism: Plan: Continue with syntroid 100mcg on admission TSH borderline low w/ infection last admission, repeated again currently given reported shakiness/heat intolerance/diarrhea Decreased Synthroid to 88mcg for AM and will need f/u PCP for outpatient repeat of labs (5) MONROE (obstructive sleep apnea): Plan: Does not wear device (6) CAD (coronary artery disease): Plan: Nonobstructive cath 2012, follows with Dr Burden from [facility] Continue ASA, BB, statin (7) DM type 2 (diabetes mellitus, type 2): Plan: Last a1c 8.03 dec 2021 Continue basal insulin equivalent - sliding scale aspart- CF 35 carb ration 1:12 Elevated and tightened parameters CF 30, CR 10 for 04/12 and monitor (8) CKD (chronic kidney disease) stage 3, GFR 30-59 ml/min: Plan: PITA II-III on CKD Over the past month [employer] above 1.5- in Nov was .8 - medication adjustment possibly with overdiuresis is possible however patient reports drinking lots of fluids at home 250cc in ER provided, repeat Cr improved to 0.9 BMP in AM Did see vitamin D level from December 2020 low at 16.4 --> not on supplementation and will repeat with AM labs (ca low on admit) and order replacement if needed (9) HLD (hyperlipidemia): Plan: Continue statin Plan: continued inpatient stay Admission and Anticipated Discharge Date Admission Date: April 11, 2022 Subjective patient evaluated this afternoon wanting to sit up to eat lunch feeling improved had been having a lot of frequency but she notes this is improved currently living alone and daughter out of town, has caregivers 5xweek from 10a- 4pm. Discussed cultures and awaiting final identification/sensitivities and will continue IV antibioitcs for now. no recent adjustments to her thyroid medication but discussed diarrhea and shakiness at home. TSH low, reduced synthroid for AM and rec outpatient repeat w/ PCP for further adjustments. No fevers at home, no recent abx outside of last admission but checking stool cx She notes no chest pain, but does get short of breath with ambulation. Non- smoker but exposed to secondhand smoke. Cough, but non-productive at this time. Ordered incentive spirometer and encouraged use. Review of Systems Review of Systems: All systems reviewed & are unremarkable except as noted in HPI & below Physical Exam Physical Exam: General: awake, alert, no apparent , no acute distress, assisted getting upright to eat lunch HEENT: head atraumatic, normocephalic, mmm, trachea midline, no thyromegaly appreciated, no JVF Resp: CTAB with diminished BS in bases/associated bibasilar crackles, no wheezing/rales, on room air CV: RRR, ?faint systolic murmur at apex, no rub/gallop, no pitting peripheral edema/calf tenderness GI: +BS, soft, nontender ; no washburn, no cva tenderness MSK/Neuro: moves all extremities, NVI, follows commands, answering questions appropriately Skin: warm, dry Results & Data Results & Data ([facility]) Vital Signs (Past 12 Hours) Vital Signs Temp Pulse Resp BP BP Pulse Ox 04/12/22 07:54 36.6 C 69 16 157/68 H 97 04/11/22 22:34 36.7 C 80 16 130/54 L 93 Laboratory Results 04/12/22 04/11/22 04/11/22 Range/Units 07:44 20:28 17:09 WBC (4.8-10.8) K/uL RBC (4.2-5.4) M/uL Hgb (12.0-16.0) g/dL Hct (37-47) % MCV (80-100) fL MCH (25-34) pg MCHC (32-36) g/dL RDW Std Deviation (36.4-46.3) fL RDW Coeff of Burak (11.5-14.5) % Plt Count (130-400) K/uL MPV (7.4-10.4) fL Immature Gran % (Auto) % Neut % (Auto) % Lymph % (Auto) % Blanco % (Auto) % Eos % (Auto) % Baso % (Auto) % Neut # (Auto) (1.4-6.5) K/uL Lymph # (Auto) (1.2-3.4) K/uL Blanco # (Auto) (0.11-0.59) K/uL Eos # (Auto) (0-0.5) K/uL Baso # (Auto) (0-0.2) K/uL Immature Gran # (Auto) (0.00-0.02) K/uL PT (9.0-12.0) Seconds INR (0.9-1.1) APTT (21.0-31.0) Seconds PTT Ratio Sodium (136-145) mmol/L Potassium Chloride (98-107) mmol/L Carbon Dioxide (21-32) mmol/L Anion Gap (3-11) BUN (6-23) mg/dl Creatinine (0.6-1.2) mg/dl Est Cr Clr Drug Dosing ml/min Est GFR ( Amer) ml/min Est GFR (Non-Af Amer) ml/min BUN/Creatinine Ratio (10-20) Glucose (70-99(Fasting)) mg/dl POC Glucose 129 H 164 H (70-99) mg/dl Lactate (0.4-2.0) mmol/L Calcium (8.5-10.1) mg/dl Ionized Calcium 1.13 (1.12-1.32) mmol/L Magnesium Total Bilirubin (0.2-1.0) mg/dl AST ALT (7-52) U/L Alkaline Phosphatase (34-104) U/L Troponin I High Sens (0-14) pg/ml C-Reactive Protein (0-0.5) mg/dl Total Protein (6.0-8.3) gm/dl Albumin (3.4-5.0) gm/dl Globulin (2.5-4.0) gm/dl Albumin/Globulin Ratio (0.9-2) Procalcitonin (0-0.5) ng/ml Urine Color Urine Appearance (Clear) Urine pH (4.5-7.5) Ur Specific Phil[place] (1.000-1.030) Urine Protein (Negative) Urine Glucose (UA) (Negative) Urine Ketones (Negative) Urine Blood (Negative) Urine Nitrite (Negative) Urine Bilirubin (Negative) Urine Urobilinogen (Negative) Ur Leukocyte Esterase (Negative) Urine WBC (Auto) (0-5) /hpf Urine RBC (Auto) (0-4) /hpf U Hyaline Cast (Auto) (0-5) /lpf U Epithel Cells (Auto) (0-5) /lpf Urine Bacteria (Auto) (Negative) SARS-CoV-2, RNA, NAAT (NEGATIVE) 04/11/22 04/11/22 04/11/22 Range/Units 17:09 16:11 14:35 WBC (4.8-10.8) K/uL RBC (4.2-5.4) M/uL Hgb (12.0-16.0) g/dL Hct (37-47) % MCV (80-100) fL MCH (25-34) pg MCHC (32-36) g/dL RDW Std Deviation (36.4-46.3) fL RDW Coeff of Burak (11.5-14.5) % Plt Count (130-400) K/uL MPV (7.4-10.4) fL Immature Gran % (Auto) % Neut % (Auto) % Lymph % (Auto) % Blanco % (Auto) % Eos % (Auto) % Baso % (Auto) % Neut # (Auto) (1.4-6.5) K/uL Lymph # (Auto) (1.2-3.4) K/uL Blanco # (Auto) (0.11-0.59) K/uL Eos # (Auto) (0-0.5) K/uL Baso # (Auto) (0-0.2) K/uL Immature Gran # (Auto) (0.00-0.02) K/uL PT (9.0-12.0) Seconds INR (0.9-1.1) APTT (21.0-31.0) Seconds PTT Ratio Sodium (136-145) mmol/L Potassium 4.1 Chloride (98-107) mmol/L Carbon Dioxide (21-32) mmol/L Anion Gap (3-11) BUN (6-23) mg/dl Creatinine (0.6-1.2) mg/dl Est Cr Clr Drug Dosing ml/min Est GFR ( Amer) ml/min Est GFR (Non-Af Amer) ml/min BUN/Creatinine Ratio (10-20) Glucose (70-99(Fasting)) mg/dl POC Glucose (70-99) mg/dl Lactate (0.4-2.0) mmol/L Calcium (8.5-10.1) mg/dl Ionized Calcium (1.12-1.32) mmol/L Magnesium 1.8 Total Bilirubin (0.2-1.0) mg/dl AST 19 ALT (7-52) U/L Alkaline Phosphatase (34-104) U/L Troponin I High Sens (0-14) pg/ml C-Reactive Protein 0.71 H (0-0.5) mg/dl Total Protein (6.0-8.3) gm/dl Albumin (3.4-5.0) gm/dl Globulin (2.5-4.0) gm/dl Albumin/Globulin Ratio (0.9-2) Procalcitonin (0-0.5) ng/ml Urine Color Urine Appearance (Clear) Urine pH (4.5-7.5) Ur Specific [place] (1.000-1.030) Urine Protein (Negative) Urine Glucose (UA) (Negative) Urine Ketones (Negative) Urine Blood (Negative) Urine Nitrite (Negative) Urine Bilirubin (Negative) Urine Urobilinogen (Negative) Ur Leukocyte Esterase (Negative) Urine WBC (Auto) (0-5) /hpf Urine RBC (Auto) (0-4) /hpf U Hyaline Cast (Auto) (0-5) /lpf U Epithel Cells (Auto) (0-5) /lpf Urine Bacteria (Auto) (Negative) SARS-CoV-2, RNA, NAAT NEGATIVE (NEGATIVE) 04/11/22 04/11/22 04/11/22 Range/Units 14:21 14:05 13:10 WBC (4.8-10.8) K/uL RBC (4.2-5.4) M/uL Hgb (12.0-16.0) g/dL Hct (37-47) % MCV (80-100) fL MCH (25-34) pg MCHC (32-36) g/dL RDW Std Deviation (36.4-46.3) fL RDW Coeff of Burak (11.5-14.5) % Plt Count (130-400) K/uL MPV (7.4-10.4) fL Immature Gran % (Auto) % Neut % (Auto) % Lymph % (Auto) % Blanco % (Auto) % Eos % (Auto) % Baso % (Auto) % Neut # (Auto) (1.4-6.5) K/uL Lymph # (Auto) (1.2-3.4) K/uL Blanco # (Auto) (0.11-0.59) K/uL Eos # (Auto) (0-0.5) K/uL Baso # (Auto) (0-0.2) K/uL Immature Gran # (Auto) (0.00-0.02) K/uL PT (9.0-12.0) Seconds INR (0.9-1.1) APTT (21.0-31.0) Seconds PTT Ratio Sodium (136-145) mmol/L Potassium Chloride (98-107) mmol/L Carbon Dioxide (21-32) mmol/L Anion Gap (3-11) BUN (6-23) mg/dl Creatinine (0.6-1.2) mg/dl Est Cr Clr Drug Dosing ml/min Est GFR ( Amer) ml/min Est GFR (Non-Af Amer) ml/min BUN/Creatinine Ratio (10-20) Glucose (70-99(Fasting)) mg/dl POC Glucose (70-99) mg/dl Lactate 1.1 (0.4-2.0) mmol/L Calcium (8.5-10.1) mg/dl Ionized Calcium (1.12-1.32) mmol/L Magnesium Total Bilirubin (0.2-1.0) mg/dl AST ALT (7-52) U/L Alkaline Phosphatase (34-104) U/L Troponin I High Sens (0-14) pg/ml C-Reactive Protein (0-0.5) mg/dl Total Protein (6.0-8.3) gm/dl Albumin (3.4-5.0) gm/dl Globulin (2.5-4.0) gm/dl Albumin/Globulin Ratio (0.9-2) Procalcitonin 0.07 (0-0.5) ng/ml Urine Color Yellow Urine Appearance Clear (Clear) Urine pH 5.0 (4.5-7.5) Ur Specific Philo 1.013 (1.000-1.030) Urine Protein Negative (Negative) Urine Glucose (UA) Negative (Negative) Urine Ketones Negative (Negative) Urine Blood Negative (Negative) Urine Nitrite Negative (Negative) Urine Bilirubin Negative (Negative) Urine Urobilinogen Negative (Negative) Ur Leukocyte Esterase 2+ H (Negative) Urine WBC (Auto) 5-10 H (0-5) /hpf Urine RBC (Auto) 0-4 (0-4) /hpf U Hyaline Cast (Auto) 1-5 (0-5) /lpf U Epithel Cells (Auto) >30 H (0-5) /lpf Urine Bacteria (Auto) 4+ H (Negative) SARS-CoV-2, RNA, NAAT (NEGATIVE) 04/11/22 04/11/22 04/11/22 Range/Units 13:10 13:10 13:10 WBC (4.8-10.8) K/uL RBC (4.2-5.4) M/uL Hgb (12.0-16.0) g/dL Hct (37-47) % MCV (80-100) fL MCH (25-34) pg MCHC (32-36) g/dL RDW Std Deviation (36.4-46.3) fL RDW Coeff of Burak (11.5-14.5) % Plt Count (130-400) K/uL MPV (7.4-10.4) fL Immature Gran % (Auto) % Neut % (Auto) % Lymph % (Auto) % Blanco % (Auto) % Eos % (Auto) % Baso % (Auto) % Neut # (Auto) (1.4-6.5) K/uL Lymph # (Auto) (1.2-3.4) K/uL Blanco # (Auto) (0.11-0.59) K/uL Eos # (Auto) (0-0.5) K/uL Baso # (Auto) (0-0.2) K/uL Immature Gran # (Auto) (0.00-0.02) K/uL PT 11.0 (9.0-12.0) Seconds INR 1.0 (0.9-1.1) APTT 25.6 (21.0-31.0) Seconds PTT Ratio 0.9 Sodium 139 (136-145) mmol/L Potassium TNP Chloride 105 (98-107) mmol/L Carbon Dioxide 26 (21-32) mmol/L Anion Gap 8 (3-11) BUN 45 H (6-23) mg/dl Creatinine 1.36 H (0.6-1.2) mg/dl Est Cr Clr Drug Dosing 31.0 ml/min Est GFR ( Amer) 42.8 ml/min Est GFR (Non-Af Amer) 36.9 ml/min BUN/Creatinine Ratio 33.1 H (10-20) Glucose 100 H (70-99(Fasting)) mg/dl POC Glucose (70-99) mg/dl Lactate (0.4-2.0) mmol/L Calcium 8.4 L (8.5-10.1) mg/dl Ionized Calcium (1.12-1.32) mmol/L Magnesium Cancelled Total Bilirubin 0.4 (0.2-1.0) mg/dl AST TNP ALT 13 (7-52) U/L Alkaline Phosphatase 71 (34-104) U/L Troponin I High Sens Cancelled 4.9 D (0-14) pg/ml C-Reactive Protein (0-0.5) mg/dl Total Protein 6.2 (6.0-8.3) gm/dl Albumin 3.6 (3.4-5.0) gm/dl Globulin 2.6 (2.5-4.0) gm/dl Albumin/Globulin Ratio 1.4 (0.9-2) Procalcitonin (0-0.5) ng/ml Urine Color Urine Appearance (Clear) Urine pH (4.5-7.5) Ur Specific [place] (1.000-1.030) Urine Protein (Negative) Urine Glucose (UA) (Negative) Urine Ketones (Negative) Urine Blood (Negative) Urine Nitrite (Negative) Urine Bilirubin (Negative) Urine Urobilinogen (Negative) Ur Leukocyte Esterase (Negative) Urine WBC (Auto) (0-5) /hpf Urine RBC (Auto) (0-4) /hpf U Hyaline Cast (Auto) (0-5) /lpf U Epithel Cells (Auto) (0-5) /lpf Urine Bacteria (Auto) (Negative) SARS-CoV-2, RNA, NAAT (NEGATIVE) 04/11/22 Range/Units 13:10 WBC 9.90 (4.8-10.8) K/uL RBC 3.84 L (4.2-5.4) M/uL Hgb 10.9 L (12.0-16.0) g/dL Hct 33.5 L (37-47) % MCV 87.2 (80-100) fL MCH 28.4 (25-34) pg MCHC 32.5 (32-36) g/dL RDW Std Deviation 48.5 H (36.4-46.3) fL RDW Coeff of Burak 15.1 H (11.5-14.5) % Plt Count 255 (130-400) K/uL MPV 10.0 (7.4-10.4) fL Immature Gran % (Auto) 0.3 % Neut % (Auto) 64.5 % Lymph % (Auto) 20.9 % Blanco % (Auto) 9.8 % Eos % (Auto) 4.2 % Baso % (Auto) 0.3 % Neut # (Auto) 6.38 (1.4-6.5) K/uL Lymph # (Auto) 2.07 (1.2-3.4) K/uL Blanco # (Auto) 0.97 H (0.11-0.59) K/uL Eos # (Auto) 0.42 (0-0.5) K/uL Baso # (Auto) 0.03 (0-0.2) K/uL Immature Gran # (Auto) 0.03 H (0.00-0.02) K/uL PT (9.0-12.0) Seconds INR (0.9-1.1) APTT (21.0-31.0) Seconds PTT Ratio Sodium (136-145) mmol/L Potassium Chloride (98-107) mmol/L Carbon Dioxide (21-32) mmol/L Anion Gap (3-11) BUN (6-23) mg/dl Creatinine (0.6-1.2) mg/dl Est Cr Clr Drug Dosing ml/min Est GFR ( Amer) ml/min Est GFR (Non-Af Amer) ml/min BUN/Creatinine Ratio (10-20) Glucose (70-99(Fasting)) mg/dl POC Glucose (70-99) mg/dl Lactate (0.4-2.0) mmol/L Calcium (8.5-10.1) mg/dl Ionized Calcium (1.12-1.32) mmol/L Magnesium Total Bilirubin (0.2-1.0) mg/dl AST ALT (7-52) U/L Alkaline Phosphatase (34-104) U/L Troponin I High Sens (0-14) pg/ml C-Reactive Protein (0-0.5) mg/dl Total Protein (6.0-8.3) gm/dl Albumin (3.4-5.0) gm/dl Globulin (2.5-4.0) gm/dl Albumin/Globulin Ratio (0.9-2) Procalcitonin (0-0.5) ng/ml Urine Color Urine Appearance (Clear) Urine pH (4.5-7.5) Ur Specific [place] (1.000-1.030) Urine Protein (Negative) Urine Glucose (UA) (Negative) Urine Ketones (Negative) Urine Blood (Negative) Urine Nitrite (Negative) Urine Bilirubin (Negative) Urine Urobilinogen (Negative) Ur Leukocyte Esterase (Negative) Urine WBC (Auto) (0-5) /hpf Urine RBC (Auto) (0-4) /hpf U Hyaline Cast (Auto) (0-5) /lpf U Epithel Cells (Auto) (0-5) /lpf Urine Bacteria (Auto) (Negative) SARS-CoV-2, RNA, NAAT (NEGATIVE) Diagnostic Findings Chest X-Ray 04/11/22 13:25 XR chest 1V portable CLINICAL HISTORY: SEPSIS COMPARISON STUDY: Chest radiograph March 14, 2022. FINDINGS: Degenerative changes of both shoulders are incidentally noted. Multilevel spinal fusion is noted. There is no pneumothorax or pleural effusion. Multiple old right rib fractures are noted. Cardiomegaly is unchanged. No evidence for pulmonary edema. Interstitial thickening and opacity shown on prior exam have resolved. Minimal bibasilar opacities favor atelectasis. No consolidation to suggest pneumonia. IMPRESSION: No acute cardiopulmonary findings. ACT 112: Negative or not required by law. Electronically signed by: Segundo Perdomo M.D. 04/11/2022 2:31 PM PG Care Time/CCT Total # of Minutes Spent Total Time Spent with Patient: Total time spent is greater than 50% in coordination of care (as documented) at patient's floor/unit and/or counseling patient: Coding Level of Care Code 34015 Subseq Hosp Care Lvl 3 Diagnoses UTI (urinary tract infection) N39.0 HTN (hypertension) I10 Chronic diastolic CHF (congestive heart failure) I50.32 Hypothyroidism E03.9 MONROE (obstructive sleep apnea) G47.33 CAD (coronary artery disease) I25.10 DM type 2 (diabetes mellitus, type 2) E11.9 CKD (chronic kidney disease) stage 3, GFR 30-59 ml/min N18.3 HLD (hyperlipidemia) E78.5
[2022-04-12] MEDS: SPIRONOLACTONE 25 MG TAB PO SCH (08:59)
[2022-04-12] MEDS: METOPROLOL TARTRATE 25 MG TAB PO SCH ×2 (08:59→19:55)
[2022-04-12] MEDS: ASPIRIN 81 MG ECTAB PO SCH (08:59)
[2022-04-12] MEDS: PANTOprazole 40 MG TAB PO SCH (08:59)
[2022-04-12] MEDS: ISOSORBIDE MONO EXTENDED REL 30 MG TABCR PO SCH (08:59)
[2022-04-12] MEDS: HEPARIN SOD 5,000 UNIT/0.5 ML VIAL SQ SCH ×2 (09:00→19:55)
[2022-04-12] MEDS: INSULIN ASPART PER UNIT SC SCH ×4 (09:05→21:46)
[2022-04-12 09:08] LABS: Basophils # (auto) 0.04 K/uL (0-0.2); Basophils % (auto) 0.5 %; Eosinophils # (auto) 0.44 K/uL (0-0.5); Eosinophils % (auto) 5.4 %; Hematocrit (blood only) 35.4 % (37-47); Hemoglobin 11.1 g/dL (12.0-16.0); Immature Granulocytes # (auto) 0.03 K/uL (0.00-0.02); Immature Granulocytes % (auto) 0.4 %; Lymphocytes # (auto) 2.47 K/uL (1.2-3.4); Lymphocytes % (auto) 30.5 %; Mean Corpuscular Hemoglobin 27.1 pg (25-34); Mean Corpuscular Hgb Conc 31.4 g/dL (32-36); Mean Corpuscular Volume 86.6 fL (80-100); Mean Platelet Volume 9.6 fL (7.4-10.4); Monocytes # (auto) 0.67 K/uL (0.11-0.59); Monocytes % (auto) 8.3 %; Neutrophils # (auto) 4.44 K/uL (1.4-6.5); Neutrophils % (auto) 54.9 %; Platelet Count 251 K/uL (130-400); RDW Coefficient of Variation 15.1 % (11.5-14.5); RDW Standard Deviation 47.8 fL (36.4-46.3); Red Blood Count 4.09 M/uL (4.2-5.4); White Blood Count 8.09 K/uL (4.8-10.8)
[2022-04-12 09:28] LABS: BUN Creatinine Ratio 32.2 (10-20); Calcium 8.9 mg/dl (8.5-10.1); Creatinine Clr Calc Pharmacy 45.9 ml/min; Est GFR (African American) 70.5 ml/min; Est GFR (Non-African American) 60.8 ml/min; Magnesium 1.8 mg/dl (1.7-2.4); Potassium 4.2 mmol/L (3.5-5.1)
[2022-04-12 09:41] LABS: Thyroid Stimulating Hormone 0.259 uIu/ml (0.300-4.500)
[2022-04-12 10:13] LABS: T4 Free Thyroxine 1.1 ng/dl (0.61-1.60)
[2022-04-12 10:20] LABS: Lyme Ab IgG w/WB Rflx Negative (Negative); Lyme Ab IgM w/WB Rflx Negative (Negative)
[2022-04-12] MEDS ORDERED: cefTRIAXone SODIUM 1,000 MG in DEXTROSE 5% 50 ML IV SCH (15:00)
[2022-04-12] MEDS ORDERED: cefTRIAXone SODIUM 2,000 MG in DEXTROSE 5% 50 ML IV SCH (15:00)
[2022-04-12] MEDS ORDERED: MONTELUKAST SODIUM 10 MG TABLET PO SCH (21:00)
[2022-04-12] MEDS ORDERED: INSULIN DETEMIR FLEXPEN/FLEX TOUCH 100 UNITS/ML 3ML SQ SCH (21:00)
[2022-04-12] MEDS ORDERED: ROSUVASTATIN CALCIUM 20 MG TAB PO SCH (21:00)
[2022-04-12] MEDS ORDERED: LORATADINE 10 MG TAB PO SCH (21:00)
[2022-04-12] MEDS ORDERED: FAMOTIDINE 20 MG TAB PO SCH (21:00)
[2022-04-12 21:11] LABS: Adenovirus F 40/41 PCR Not Detected (NotDetected); Astrovirus PCR Not Detected (NotDetected); Campylobacter PCR Not Detected (NotDetected); Clostridium diff Toxin A/B PCR Not Detected (NotDetected); Cryptosporidium PCR Not Detected (NotDetected); Cyclospora cayetanensis PCR Not Detected (NotDetected); Entamoeba histolytica PCR Not Detected (NotDetected); Enteroaggregative E.coli(EAEC) Not Detected (NotDetected); Enteropathogenic E.coli (EPEC) Not Detected (NotDetected); Enterotoxigenic E.coli (ETEC) Not Detected (NotDetected); Giardia lamblia PCR Not Detected (NotDetected); Norovirus GI/GII PCR Not Detected (NotDetected); Plesiomonas shigelloides PCR Not Detected (NotDetected); Rotavirus A PCR Not Detected (NotDetected); Salmonella PCR Not Detected (NotDetected); Sapovirus PCR Not Detected (NotDetected); Shiga-like Toxin E.coli (STEC) Not Detected (NotDetected); Shigella/Enteroinvasive E.coli Not Detected (NotDetected); Vibrio cholerae PCR Not Detected (NotDetected); Vibrio species PCR Not Detected (NotDetected); Yersinia enterocolitica PCR Not Detected (NotDetected)
[2022-04-12] MEDS: ACETAMINOPHEN 325 MG TAB PO PRN (23:28)
[2022-04-13] MEDS: oxyCODONE/ACETAMINOPHEN 5mg/325mg TAB PO PRN ×2 (03:19→09:00)
[2022-04-13] MEDS: ACETAMINOPHEN 325 MG TAB PO PRN (06:09)
[2022-04-13] MEDS ORDERED: LEVOTHYROXINE SODIUM 88 MCG TABLET PO SCH (06:30)
[2022-04-13] MEDS ORDERED: METOPROLOL TARTRATE 50 MG TAB PO STA (08:04)
--- NOTE | 2022-04-13 08:05 | Hospitalist Progress Note ---
Date of Service April 13, 2022 Assessment & Plan (1) UTI (urinary tract infection): Plan: Previously treated with pansensitive E.COLI in February with cefdinir Procal 0.07, lactic wnl, CRP 0.71 Placed on ceftriaxone IV daily Urine cx gram negative bacilli -- monitor Monitor blood cultures Remains afebrile, WBC wnl Continued inpatient stay (2) HTN (hypertension): Plan: Patient arrived hypotensive and responded to very little volume 250cc BP stable -Remains on spironolactone, metoprolol -Holding lisinopril, lasix this AM given LEN on admission, resolved on repeat and resume in AM Metoprolol decreased to 25mg BID for now (typically on 50mg QAM, 25mg QPM) Does have history of diastolic HF per cardiology report from March 2021 but does not appear to be overloaded at this time Monitor (3) Chronic diastolic CHF (congestive heart failure): Plan: As above not overloaded currently, resuming lasix/lisinopril for AM given LEN resolved Monitor (4) Hypothyroidism: Plan: Continue with syntroid 100mcg on admission TSH borderline low w/ infection last admission, repeated again currently given reported shakiness/heat intolerance/diarrhea Decreased Synthroid to 88mcg for AM and will need f/u PCP for outpatient repeat of labs (5) MONROE (obstructive sleep apnea): Plan: Does not wear device (6) CAD (coronary artery disease): Plan: Nonobstructive cath 2012, follows with Dr Burden from [facility] Continue ASA, BB, statin (7) DM type 2 (diabetes mellitus, type 2): Plan: Last a1c 8.03 dec 2021 Continue basal insulin equivalent - sliding scale aspart- CF 35 carb ration 1:12 Elevated and tightened parameters CF 30, CR 10 for 04/12 and monitor (8) CKD (chronic kidney disease) stage 3, GFR 30-59 ml/min: Plan: PITA II-III on CKD Over the past month [employer] above 1.5- in Nov was .8 - medication adjustment possibly with overdiuresis is possible however patient reports drinking lots of fluids at home 250cc in ER provided, repeat Cr improved to 0.9 BMP in AM Did see vitamin D level from December 2020 low at 16.4 --> not on supplementation and will repeat with AM labs (ca low on admit) and order replacement if needed (9) HLD (hyperlipidemia): Plan: Continue statin Plan: PT consulted -- living alone, daughter out of town CM to follow -- patient does have caregivers in home 5x/weekly continued inpatient stay Admission and Anticipated Discharge Date Admission Date: April 11, 2022 Results & Data Results & Data ([facility]) Vital Signs (Past 12 Hours) Vital Signs Temp Pulse Resp BP Pulse Ox 04/13/22 07:10 36.4 C L 80 16 177/94 H 95 04/13/22 06:07 80 16 169/72 H 97 04/13/22 03:15 36.9 C 73 20 168/60 H 98 04/12/22 22:30 37.3 C 77 22 142/77 H 94 04/12/22 20:08 79 18 185/65 H 96 PG Care Time/CCT Total # of Minutes Spent Total Time Spent with Patient: Total time spent is greater than 50% in coordination of care (as documented) at patient's floor/unit and/or counseling patient: Coding Diagnoses UTI (urinary tract infection) N39.0 HTN (hypertension) I10 Chronic diastolic CHF (congestive heart failure) I50.32 Hypothyroidism E03.9 MONROE (obstructive sleep apnea) G47.33 CAD (coronary artery disease) I25.10 DM type 2 (diabetes mellitus, type 2) E11.9 CKD (chronic kidney disease) stage 3, GFR 30-59 ml/min N18.3 HLD (hyperlipidemia) E78.5
[2022-04-13] MEDS: SPIRONOLACTONE 25 MG TAB PO SCH (08:53)
[2022-04-13] MEDS: PANTOprazole 40 MG TAB PO SCH (08:54)
[2022-04-13] MEDS: ASPIRIN 81 MG ECTAB PO SCH (08:54)
[2022-04-13] MEDS: HEPARIN SOD 5,000 UNIT/0.5 ML VIAL SQ SCH (08:54)
[2022-04-13] MEDS: ISOSORBIDE MONO EXTENDED REL 30 MG TABCR PO SCH (08:54)
[2022-04-13] MEDS: INSULIN ASPART PER UNIT SC SCH (08:58)
[2022-04-13 09:15] LABS: Basophils # (auto) 0.04 K/uL (0-0.2); Basophils % (auto) 0.4 %; Eosinophils # (auto) 0.32 K/uL (0-0.5); Eosinophils % (auto) 3.4 %; Hematocrit (blood only) 35.2 % (37-47); Immature Granulocytes # (auto) 0.06 K/uL (0.00-0.02); Immature Granulocytes % (auto) 0.6 %; Lymphocytes # (auto) 2.23 K/uL (1.2-3.4); Lymphocytes % (auto) 23.9 %; Mean Corpuscular Hemoglobin 29.5 pg (25-34); Mean Corpuscular Hgb Conc 34.1 g/dL (32-36); Mean Corpuscular Volume 86.5 fL (80-100); Mean Platelet Volume 9.6 fL (7.4-10.4); Monocytes # (auto) 0.57 K/uL (0.11-0.59); Monocytes % (auto) 6.1 %; Neutrophils # (auto) 6.13 K/uL (1.4-6.5); Neutrophils % (auto) 65.6 %; Platelet Count 258 K/uL (130-400); RDW Coefficient of Variation 14.8 % (11.5-14.5); RDW Standard Deviation 47.3 fL (36.4-46.3); Red Blood Count 4.07 M/uL (4.2-5.4); White Blood Count 9.35 K/uL (4.8-10.8)
[2022-04-13 09:29] LABS: BUN Creatinine Ratio 23.7 (10-20); Calcium 9.5 mg/dl (8.5-10.1); Creatinine Clr Calc Pharmacy 42.6 ml/min; Est GFR (African American) 64.4 ml/min; Est GFR (Non-African American) 55.5 ml/min; Magnesium 1.7 mg/dl (1.7-2.4); Potassium 4.3 mmol/L (3.5-5.1)
[2022-04-13] MEDS ORDERED: hydrALAZINE HCL 20 MG/ML VIAL IV PRN (11:12)
[2022-04-13] MEDS ORDERED: hydrOXYzine HCl 25 MG TAB PO STA (11:12)
--- NOTE | 2022-04-13 11:27 | Discharge Summary ---
Date of Service April 13, 2022 Admission HPI Per Admitting Provider 77 YOF with medical history of: DMII (on insulin), seasonal allergies, HTN, CAD, HFpEF, CKD, COPD, DJD, Depression, HLD, Hypothyroidism, MONROE, RA. Patient comes to the EMD today for complaints of feeling increase fatigue and diarrhea, she was noted to be hypotensive. She had routine labs performed to include Lactate, PCT. She had blood culture and UA with culture performed. She was given 500ml of NS and her blood pressures improved. 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 Patient states she finished her antibiotics as prescribed and her symptoms improved and she was feeling better up until about 2-3 days ago where she felt fatigued again. She denies any nasal congestion, sore throat, back pain, or abdominal pain. She was started on Rocephin. Patient will be observed overnight, continue with abx while cultures are pending. She will be given LR overnight x1 liter and follow renal function in the morning. COVID test on admission is: NEGATIVE Admission Exam Per Admitting Provider PHYSICAL EXAM: General: awake, alert, no apparent distress Head: Normocephalic, atraumatic ENT: PERRL, EOMI, no pharyngeal exudate, mucous membranes moist Neuro: AAO x 3, speech clear and appropriate, strength intact bilaterally 5/5, sensation intact and equal all extremities and dermatomes, no pronator drift Chest: equal rise and fall of the chest, no accessory muscle use, no heaves or thrills, Clear to auscultation, on room air, Cardiac: Regular rate and rhythm, telemetry reviewed, skin warm dry, cap refill <3 seconds, peripheral pulses +2 no JVD, no murmur, no edema GI: NABS x 4 quadrants, soft, nontender to palpation, no rebound, guarding or tenderness : Spontaneously voiding, no pain, no CVA tenderness, Extremities: Normal inspection, no peripheral edema or erythema, calfs nontender to palpation Psych: Normal mood and affect Skin: no rash or erythema Principal Diagnosis UTI Discharge Exam General: awake, alert, no apparent , tearful about needing to be discharged home due to family situation HEENT: head atraumatic, normocephalic, mmm, trachea midline, no thyromegaly appreciated, no JVF Resp: CTAB, diminished in the bases/bibasilar crackles, no wheezing/rales, on room air CV: RRR, ?faint systolic murmur at apex, no rub/gallop, no pitting peripheral edema/calf tenderness GI: +BS, soft, nontender ; no washburn, no cva tenderness MSK/Neuro: moves all extremities, NVI, follows commands, answering questions appropriately Psych: AOx3, anxious and tearful about her brother being in hospital and needing to be discharge Skin: cool, dry Discharge Data Allergies Allergy/AdvReac Type Severity Reaction Status Date / Time carvedilol AdvReac Mild Heart Verified 04/11/22 17:00 racing Consultations 04/11/22 15:33 ED Decision to Admit Stat Ordered Studies Chest X-Ray 04/11/22 13:25 XR chest 1V portable CLINICAL HISTORY: SEPSIS COMPARISON STUDY: Chest radiograph March 14, 2022. FINDINGS: Degenerative changes of both shoulders are incidentally noted. Multilevel spinal fusion is noted. There is no pneumothorax or pleural effusion. Multiple old right rib fractures are noted. Cardiomegaly is unchanged. No evidence for pulmonary edema. Interstitial thickening and opacity shown on prior exam have resolved. Minimal bibasilar opacities favor atelectasis. No consolidation to suggest pneumonia. IMPRESSION: No acute cardiopulmonary findings. ACT 112: Negative or not required by law. Electronically signed by: Segundo Perdomo M.D. 04/11/2022 2:31 PM Hospital Course (1) UTI (urinary tract infection): Previously treated with pansensitive E.COLI in February with cefdinir and had been doing well but developed recurrance of symptoms and presented again with UTI Procal 0.07, lactic wnl, CRP 0.71 Urine cx with klebsiella, pansensitive except intermed nitrofurantoin Placed on ceftriaxone IV daily, transitioned to Keflex PO at discharge to complete course BCx ngtd Remained afebrile Family stress with brother being hospitalized apparently at [place] with covid (patient states she hasn't been around him in the past month however, so no risk for contact) -of note, neighbor picked up patient and stated was today, unclear if patient not aware of this as she was unable to reach anyone by phone and only had 4 contacts in there when I attempted to look - neighbor going to stay with her until daughter back from out of town. Of note dose have caregivers 5days/week M-F (2) HTN (hypertension): Patient arrived hypotensive and responded to very little volume 250cc Metoprolol decreased to 25mg BID, and lisinopril/lasix held on admission due to LEN BP elevated AM of discharge and Cr normalized (reported anxiety due to above stress and given dose Vistaril) and resumed her metoprolol and lisinopril and BP improved to 130/54 Does have history of diastolic HF per cardiology report from March 2021 but does not appear to be overloaded at this time (3) Chronic diastolic CHF (congestive heart failure): As above diuretics held on admit due to LEN/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 intake 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 normalized, meds resumed and stable at discahrge (4) Hypothyroidism: Continue with Synthroid 100mcg on admission TSH borderline low w/ infection last admission, repeated again currently given reported shakiness/heat intolerance/diarrhea/heat intolerance over past couple weeks (could be from infxn however was low last time w/ infxn and now even lower and suspect over treated) Decreased Synthroid to 88mcg for AM and will need f/u PCP for outpatient repeat of labs (5) MONROE (obstructive sleep apnea): Does not wear device (6) CAD (coronary artery disease): Nonobstructive cath 2012, follows with Dr Burden from [facility] Continue ASA, BB, statin (7) DM type 2 (diabetes mellitus, type 2): Last a1c 8.03 dec 2021 Continue basal insulin equivalent ISS while inpatient, bsgs stable after tightened control (8) CKD (chronic kidney disease) stage 3, GFR 30-59 ml/min: PITA II-III on CKD Over the past month 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 above 1.5- in Nov was .8 On admit reported drinking lots of fluid but was slightly dehydrated on admission, given 250cc NSS Cr improved back to baseline and stayed stable, meds resumed Did see vitamin D level from December 2020 low at 16.4 --> not on supplementation and will repeat with AM labs (ca low on admit) and order replacement if needed repeat improved but still low and sent PO replacement at d/c (9) HLD (hyperlipidemia): Continued statin discharged home with neighbor Total Time Total Time Spent Total Time Spent (In Minutes): 45 Discharge Plan Discharge Items Patient Disposition: Home - Self-Care Reason For Visit: HYPOTENSION, UTI ?, LEN Discharge Diagnosis: UTI Goals: You have been hospitalized for an acute medical problem. During your stay at [facility], we have made an effort to correct the problem that brought you to the hospital while keeping you as comfortable as possible. Medications were used to bring your condition under control and your discharge instructions will include directions for any medications you should take after leaving the hospital. Please make sure you see your Primary Care Provider as part of your follow up plan. Activity: Resume your previous activity Non-emergency contact: Primary Care Provider Call non-emergency contact if: you have any medication questions and your symptoms worsen Follow-up/Referrals: Joan Blackmon, [Primary Care Provider] - 04/16/22 10:20 am Diet: Carb Consistent or DM2 and Heart Healthy Addtl Attending Provider Instructions: You have been hospitalized for a UTI. Cultures show this is sensitive to Keflex and you should continue this for total 7 days (you got two days worth in the hospital and have 5 more days). Please drink plenty of fluids and keep up with hydration status. Your thyroid medication ahs been decreased to 88mcg daily and you will need to have repeat thyroid testing outpatient with your primary care. Your vitamin D level was low previously and we repeated this and was slightly low and sent on oral replacement. You should follow up with your PCP in the next 7-10 days. Please return to the ER for any fevers/chills, chest pain, shortness of breath, or for any other symptoms concerning for you. Take care! Pending Studies at Discharge: Yes Studies:: blood cultures - no growth to date Stand-Alone Forms: My [facility], Opioid Pain Management Medications and DC Order Prescriptions: New cephalexin 500 mg Capsule 500 mg PO QID 5 Days Qty: 19 RF: 0 levothyroxine [Synthroid] 88 mcg Tablet 88 mcg PO DAILYBB 30 Days Qty: 30 RF: 0 cholecalciferol (vitamin D3) [Vitamin D3] 25 mcg (1,000 unit) capsule 1,000 unit PO DAILY 30 Days Qty: 30 RF: 0 Continued (DME) lancets [Accu-Chek Softclix Lancets] Misc See Rx Instructions .ROUTE .MEDSUPPLY Qty: 100 RF: 0 (DME) OneTouch Verio test strips Strip See Rx Instructions .ROUTE .MEDSUPPLY Qty: 200 RF: 5 diclofenac sodium 1 % gel 2 g topical BID Qty: 100 RF: 2 Bydureon BCise 2 mg/0.85 mL auto-injector 2 mg subcut Q7D Qty: 3.4 RF: 2 oxycodone-acetaminophen [Percocet] 10-325 mg tablet 1 tab PO Q6H PRN (Reason: pain) Qty: 120 RF: 0 furosemide 80 mg tablet 80 mg PO QAM Qty: 90 RF: 1 oxybutynin chloride 5 mg tablet extended release 24hr 5 mg PO DAILY Qty: 30 RF: 3 aspirin [Adult Low Dose Aspirin] 81 mg tablet,delayed release (DR/EC) 81 mg PO QAM RF: 0 (DME) pen needle, diabetic [BD Ultra-Fine Kim Pen Needle] 32 gauge x 5/32" needle See Rx Instructions .ROUTE .MEDSUPPLY Qty: 400 RF: 3 fluticasone propionate 50 mcg/actuation spray,suspension 1 spray INTRANASAL DAILY PRN (Reason: Allergy Symptoms) RF: 0 loratadine 10 mg tablet 10 mg PO HS RF: 0 albuterol sulfate 90 mcg/actuation HFA aerosol inhaler 2 puff INHALATION Q4 PRN (Reason: cough,sob,wheeze) RF: 0 insulin aspart U-100 [Novolog Flexpen U-100 Insulin] 100 unit/mL (3 mL) insulin pen 2 unit SUBCUT TIDM MDD 16 RF: 0 Levemir FlexTouch U-100 Insuln 100 unit/mL (3 mL) insulin pen 8 unit SUBCUT QPM MDD 16 RF: 0 isosorbide mononitrate 30 mg tablet extended release 24 hr 30 mg PO QAM RF: 0 spironolactone 25 mg tablet 25 mg PO QAM RF: 0 lisinopril 40 mg tablet 40 mg PO QAM RF: 0 Hold Instructions: low bp pregabalin 200 mg capsule 200 mg PO TID RF: 0 famotidine 20 mg tablet 20 mg PO QPM RF: 0 pantoprazole 40 mg tablet,delayed release (DR/EC) 40 mg PO QAM RF: 0 metoprolol tartrate 50 mg tablet See Rx Instructions .ROUTE .COMPLEX RF: 0 montelukast 10 mg tablet 10 mg PO HS RF: 0 rosuvastatin 20 mg tablet 20 mg PO HS RF: 0 Discontinued levothyroxine 100 mcg tablet 100 mcg PO DAILYBB RF: 0 Discharge Orders: Discharge Order (Routine); Ordered 04/13/22 Ordered By: Brianna Gutierrez Admission Data Admit Date/Time: 04/11/22 16:23 Attending Provider: Nasima High Admit Provider: Jakub Hinds Primary Care Provider: Joan Blackmon Other Providers: Apollo Gunter ; [facility] Other Interventions: Discharge Summary Assessment (RN) Last Done: 04/13/22 12:21 Supervising Physician Co-Signing Physician Notes PA Supervision Note: I personally saw and examined the patient. I verified all douglas points and agree with AUNDREA Gutierrez with the following exceptions and/or additions: S-Pt feeling better. Anxious for dsicahrge. No abd pains. O- Vitals reviewed Gen: [AAOx3, NAD] HEENT: [anicteric sclerae, EOMI] CV: [RRR no mgr nl S1S2] Pulm: [CTAB no wcr] Abd: [+BS soft NT ND no masses or hernias] Ext: [no edema] Skin: [no rashes, warm/dry] Neuro: [full strength throughout] A/P-77 yo female here with UTI and hypotension, dehydration, now all resolved dc to home on po abx Coding Level of Care Code 05027 OBS Care - Discharge Diagnoses UTI (urinary tract infection) N39.0 HTN (hypertension) I10 Chronic diastolic CHF (congestive heart failure) I50.32 Hypothyroidism E03.9 MONROE (obstructive sleep apnea) G47.33 CAD (coronary artery disease) I25.10 DM type 2 (diabetes mellitus, type 2) E11.9 CKD (chronic kidney disease) stage 3, GFR 30-59 ml/min N18.3 HLD (hyperlipidemia) E78.5
[2022-04-13] MEDS ORDERED: lisinopril 40 MG TAB PO SCH (11:30)
[2022-04-13] MEDS ORDERED: cephALEXin 500 MG CAP PO SCH (11:45)
[2022-04-13] MEDS ORDERED: METOPROLOL TARTRATE 25 MG TAB PO SCH (21:00)
[2022-04-14] MEDS ORDERED: METOPROLOL TARTRATE 50 MG TAB PO SCH (09:00)
== END 2022-04-13 13:33 | disposition home or self-care (01) ==
LOC: 3N 12:29 → ED 12:29 → SUATTDRO 16:23 → 3N 19:41